=== PATIENT | male | born 1960 | race Caucasian/White ===

== ENCOUNTER 2023-02-23 22:46 | Outpatient (CLI) | payer MEDICAID, SELFPAY | END 2023-02-23 22:47 | disposition home or self-care (01) | LOC: AMB 02-28 12:21 | PROVIDERS: Visit Provider Family Medicine | DX: M54.9 Dorsalgia, unspecified (principal) | CPT/HCPCS: A0425; A0427 ==

== ENCOUNTER 2023-02-23 23:04 | Emergency (ER) | payer MEDICAID, SELFPAY ==
[2023-02-23 23:11] VITALS: BP 198/114; PULSE 109; RESP 18; TEMP 36.7; O2SAT 96; BMI 19.2
--- NOTE | 2023-02-23 23:18 | ED_ITS ---
HPI - General Adult General Chief complaint: Back Injury/Pain Stated complaint: Back Pain Time Seen by Provider: 02/23/23 23:16 History of Present Illness HPI narrative: pt walking home 3d ago, fell and hurt lower back, pain started next day. denies any loc or hitting head. states since that day pain moved up into shoulders and now into neck/back of head. ems did not give any meds. 62-year-old man presenting to the emergency department with complaint of back pain. He describes walking home 3 days ago falling hurting his back somehow. Pain though had escalated the next day. Does have an underlying history of neuropathy. Does not describe shooting pain down his legs or into his arms at this time. He has pain more in the upper middle back that has gone upward. I attempt inquire about past medical but he tends to be brusquely dismissive. Notes that he takes 10 pills in the morning and an unspecified amount the evening. Gabapentin is only noted medication which he takes for neuropathy. Says he does not have any bone injury and would just like something for pain Primary is noted as Jayne Townsend at [facility] [place]. Apparently is moving down to this area Some medical visits are noted on review of care everywhere. Evidently related to falls and alcohol intoxication. Related Data Allergies Allergy/AdvReac Type Severity Reaction Status Date / Time ranitidine AdvReac itch Verified 02/23/23 23:17 Review of Systems Status of ROS: Reports: 6 or more systems reviewed and unremarkable except as noted in History and below Exam Narrative: Exam Narrative: Small stature. A little disheveled. Disagreeable. Breathing easily with what appears to be equal expansion excursion of the chest. Lungs are clear with breath sounds throughout. Appears to be moving all extremities without difficulty. Head does not appear to have evidence of any new trauma. Cranial nerves 2-12 are intact. He is somewhat hunched forward and leaning to the right a little bit in the exam chair. He is disinclined to get into the bed. Thoracic kyphosis. Neck with some right siva cervical but really more trapezial muscle tension. No pain to midline palpation of the neck or back. No pain to palpation about the shoulders or clavicles. Pain is also in the right upper thoracic siva-spinal musculature. I do not see evidence of trauma here. Well- perfused peripherally. Const: Vital Signs, click to edit/add: Vital Signs - 24 hr 02/23/23 23:11 Temperature 98.1 F Pulse Rate [Pulse Oximeter] 109 H Respiratory Rate 18 Blood Pressure [Ri ght Upper Arm] 198/114 H Pulse Oximetry 96 Oxygen Delivery Me thod Room Air Documenting provider has reviewed patient's vital signs: yes Course Vital Signs Vital signs: Initial Vital Signs Temperature 98.1 F 02/23/23 23:11 Temperature Source Temporal Artery Scan 02/23/23 23:11 Pulse Rate 109 H 02/23/23 23:11 Respiratory Rate 18 02/23/23 23:11 Blood Pressure 198/114 H 02/23/23 23:11 Blood Pressure Mean 142 H 02/23/23 23:11 Blood Pressure Position Sitting 02/23/23 23:11 Pulse Oximetry 96 02/23/23 23:11 Oxygen Delivery Method Room Air 02/23/23 23:11 Vital Signs Temperature 98.1 F 02/23/23 23:11 Pulse Rate 109 H 02/23/23 23:11 Respiratory Rate 18 02/23/23 23:11 Blood Pressure 198/114 H 02/23/23 23:11 Pulse Oximetry 96 02/23/23 23:11 Oxygen Delivery Method Room Air 02/23/23 23:11 Temperature 98.1 F 02/23/23 23:48 Pulse Rate 94 02/23/23 23:48 Respiratory Rate 18 02/23/23 23:48 Blood Pressure 174/84 H 02/23/23 23:48 Pulse Oximetry 96 02/23/23 23:48 Oxygen Delivery Method Room Air 02/23/23 23:48 Medical Decision Making MDM Narrative Medical decision making narrative: Seems to have musculoskeletal pain exacerbated by deconditioning in the setting of neuropathy. I do not think there is signify bony injury and regardless he appears disinclined to further investigation. Certainly could be minor rib fracture. Vitals are notable for uncontrolled blood pressure in particular. I offer an injection of Toradol which he accepts. Said he does not do pain medications generally. Given posture might benefit from soft collar which I offer and he accepts. Seems familiar with treatments for pain. He thought that a muscle relaxer might be helpful. I did express some concerns regarding potential sedation. Given ketorolac injection. Was ultimately improved and ambulatory from the emergency department. Discharge Plan Discharge Clinical Impression: Back pain, High blood pressure Patient Disposition: Home, Self-Care Condition: Stable Additional Instructions: Can wear the soft collar for comfort over this next week. See handout on stretches for upper and lower back just to help mobilize things. Cyclobenzaprine as ?muscle relaxer? from [employer]. Temporarily can also take up to 800 mg of ibuprofen per dose or up to 1000 mg of acetaminophen per dose; the latter can be taken longer-term. You can also substitute ibuprofen with naproxen up to 500 mg 2 times daily. If you can not reach your primary care provider and you are establishing cares here anyway, would be a good idea to call to a local clinic to be seen as soon as possible; especially with regard to your blood pressure. Can be seen in [facility] affiliated clinics or [facility] locally. Be sure to show up with your pill bottles so that refills can be done. Follow Up/Referrals: Dipak Louis MD [Staff Physician] - Stand Alone Forms: [employer] Info Instructions
--- NOTE | 2023-02-23 23:22 | ED.NURSE ---
pt refuses to give med list, states we should have it, PCP is at [facility], we do not have that data, pt updated and still did not give med list. pt stated he could not move because of pain but pt did get up and walk around room and get the chair off the wall to sit down in while waiting for MD.
[2023-02-23 23:35] VITALS: TEMP 36.7
[2023-02-23] MEDS: KETOROLAC 60 MG/2 ML inj IM (23:35)
[2023-02-23 23:48] VITALS: BP 174/84; PULSE 94; RESP 18; TEMP 36.7; O2SAT 96
== END 2023-02-23 23:48 | disposition home or self-care (01) ==
PROVIDERS: Emergency Provider Family Medicine
DX: M54.9 Dorsalgia, unspecified (principal); R03.0 Elevated blood-pressure reading, without diagnosis of hypertension
CPT/HCPCS: 96372; 99283; 99284; J1885

== ENCOUNTER 2023-03-12 23:23 | Outpatient (CLI) | payer MEDICAID, SELFPAY | END 2023-03-12 23:24 | disposition home or self-care (01) | PROVIDERS: Visit Provider Student in an Organized Health Care Education/Training Program | DX: R06.09 Other forms of dyspnea (principal) | CPT/HCPCS: A0425; A0427 ==

== ENCOUNTER 2023-03-12 23:45 | Emergency (ER) | payer MEDICAID, SELFPAY ==
[2023-03-12 23:58] VITALS: PULSE 147; O2SAT 60
[2023-03-13] VITALS (42 sets, daily range): BP systolic 121–227; BP diastolic 87–182; PULSE 93–143; RESP 12–40; TEMP 35.8–36.1; O2SAT 65–100
--- NOTE | 2023-03-13 | CRLHL7_ITS ---
For Patients: As a result of the Cures Act, medical imaging exams and procedure reports are released immediately into your electronic medical record. You may view this report before your referring provider. If you have questions, please contact your health care provider. INDICATION: Dyspnea, intubation TECHNIQUE: Chest radiograph 1 view COMPARISON: None FINDINGS: Mediastinum: The mediastinum is normal in appearance. The heart silhouette is normal in size and morphology. The endotracheal tube tip is positioned 2.8 cm from the abiodun. Lung: Diffuse interstitial infiltrates with Jayson B lines are present and consistent with moderate interstitial pulmonary edema. No pneumothorax is identified. Bone and Soft tissue: Remote fractures of the right posterior 5th-8th ribs are noted. IMPRESSION: 1. Diffuse interstitial infiltrates with Jayson B lines are present and consistent with moderate interstitial pulmonary edema. Dictated by Vitaly West MD @ 03/13/2023 12:38:47 AM Dictated by: Vitaly West MD @ 03/13/2023 00:38:52 (Electronically Signed)
[2023-03-13 00:26] LABS: HCO3 VBG 13 mmol/L (21-28); PCO2 VBG 48 mmHG (40-50); PO2 VBG 47.4 mmHG (25-47)
[2023-03-13 00:29] LABS: Basophils Percent Auto 0.4 % (0.0-3.0); Eosinophils Percent Auto 2.2 % (0.0-7.0); Hematocrit 36.4 % (37.0-53.0); Hemoglobin* 11.2 gm/dL (13.5-17.5); Lymphocytes Percent Auto 32.1 % (20-44); Mean Corpuscular HGB Conc 31 gm/dL (32-36); Mean Corpuscular Hemoglobin 32 pg (26-34); Mean Corpuscular Volume 105 fL (80-100); Neutrophils Percent Auto 58.7 % (42.0-72.0); Platelet Count* 390 K/uL (140-440); RDW Coefficient of Variation % 13.9 % (11.5-15.5); Red Blood Count 3.47 m/uL (4.30-5.90); White Blood Count* 18.44 K/uL (4.50-11.00)
[2023-03-13 00:30] LABS: Immature Granulocytes Pct Auto 0.6 %
[2023-03-13 00:32] LABS: Slide Review Reflex No
[2023-03-13 00:34] LABS: Lactate* 4.1 mmol/L (0.5-1.9); pH VBG 7.052 (7.32-7.43)
[2023-03-13 00:40] LABS: Appearance Urine Clear (Clear); Bilirubin Urine Negative (Negative); Blood Urine Trace-intact (Negative); Color Urine Yellow (Yellow); Glucose Urine Trace (Negative); Ketones Urine Negative (Negative); Leukocyte Esterase Urine Negative (Negative); Nitrite Urine Negative (Negative); Protein Urine 3+ (Negative); Urobilinogen Urine 0.2 (0.2-1.0); pH Urine 6.5 (5.0-8.5)
[2023-03-13] MEDS: ETOMIDATE 2 MG/ML inj 18 MG IVP (00:43)
[2023-03-13] MEDS: SUCCINYLCHOLINE 20 MG/ML INJ 180 MG IVP (00:43)
[2023-03-13] MEDS: PROPOFOL 10 MG/ML INJ 100 MG IVP ×2 (00:44→03:01)
--- NOTE | 2023-03-13 00:44 | ED_ITS ---
HPI - General Adult General Chief complaint: Shortness of Breath/Dyspnea <Linda Short MD - Last Filed: 03/13/23 03:00> Stated complaint: difficulty breathing <Linda Short MD - Last Filed: 03/13/23 03:00> Time Seen by Provider: 03/12/23 23:56 <Linda Short MD - Last Filed: 03/13/23 03:00> Source: patient and EMS <Linda Short MD - Last Filed: 03/13/23 03:00> Mode of arrival: EMS <Linda Short MD - Last Filed: 03/13/23 03:00> History of Present Illness HPI narrative: 62-year-old male with known prior significant cardiac and pulmonary history presents to the emergency department for evaluation of dyspnea. Reports that this started 2-3 hours prior to arrival, rapid onset. No fever, no trauma or injury. Friend called EMS. EMS team says that when they arrived, patient came out of his apartment building and met them quickly. O2 sats were noted to be around 70% and he was severely dyspnea. They tried administering a DuoNeb with no significant improvement in symptoms and transported him to the emergency department. When I arrived for my shift, he is already on BiPAP with O2 sats in the 50s to 60s and severely dyspneic and tachycardic. He is able to speak in a couple word sentences and therefore history is somewhat limited. From what I can gather, he reports no recent fever, no pertinent travel. He denies any chest pain, abdominal pain or recent fall. I review records once he is stabilized N/C that he was evaluated earlier in the month for back pain and has recently relocated to our area from the [facility]. He does not yet have a primary care provider and it looks like his previous primary care had been through the [facility] system. He reports he takes: Medications but does not recall what they are. He denies any recent hospitalizations. Past medical history is quite limited but from what I can tell he tells me he has had 2 cardiac arrests. When I ask if he has been intubated for his breathing problems in the past he confirms also yes. He cannot list his medications but he does not endorse any allergies. Denies intoxication reports that he continues to smoke. ROS is notable for the severe respiratory distress but taking accurate ROS is quite limited by his critically ill condition. <Linda Short MD - Last Filed: 03/13/23 03:00> Related Data Allergies/adverse reactions: Allergies Allergy/AdvReac Type Severity Reaction Status Date / Time ranitidine AdvReac itch Verified 02/23/23 23:17 <Linda Short MD - Last Filed: 03/13/23 03:00> PFSH PFSH Social History: Social History Smoking Status: Current every day smoker <Linda Short MD - Last Filed: 03/13/23 03:00> Exam Const: Vital Signs, click to edit/add: Vital Signs - 24 hr 03/12/23 23:58 03/13/23 00:00 03/13/23 00:14 Temperature Pulse Rate 147 H 143 H 130 H Pulse Rate [Femora l] Respiratory Rate Blood Pressure 185/163 H Blood Pressure [Ri ght Upper Arm] Pulse Oximetry 60 L 65 L 84 L Oxygen Delivery Me thod Oxygen Flow Rate Fraction of Inspir ed Oxygen 03/13/23 00:15 03/13/23 00:29 03/13/23 00:30 Temperature Pulse Rate 133 H 111 H 108 H Pulse Rate [Femora l] Respiratory Rate Blood Pressure 132/106 H Blood Pressure [Ri ght Upper Arm] Pulse Oximetry 84 L 97 98 Oxygen Delivery Me thod Oxygen Flow Rate Fraction of Inspir ed Oxygen 03/13/23 00:31 03/13/23 00:36 03/13/23 00:41 Temperature Pulse Rate 106 H 98 93 Pulse Rate [Femora l] Respiratory Rate Blood Pressure 121/98 H 123/93 H 127/93 H Blood Pressure [Ri ght Upper Arm] Pulse Oximetry 98 99 99 Oxygen Delivery Me thod Oxygen Flow Rate Fraction of Inspir ed Oxygen 03/13/23 00:45 03/13/23 00:46 03/13/23 00:51 Temperature Pulse Rate 95 95 98 Pulse Rate [Femora l] Respiratory Rate Blood Pressure 125/92 H 145/111 H Blood Pressure [Ri ght Upper Arm] Pulse Oximetry 99 99 100 Oxygen Delivery Me thod Oxygen Flow Rate Fraction of Inspir ed Oxygen 03/13/23 01:00 03/13/23 01:05 03/13/23 01:05 Temperature 96.5 F L Pulse Rate 121 H 125 H Pulse Rate [Femora l] 131 H Respiratory Rate 40 H Blood Pressure 176/109 H Blood Pressure [Ri ght Upper Arm] 186/101 H Pulse Oximetry 96 94 Oxygen Delivery Me thod Room Air Oxygen Flow Rate Fraction of Inspir ed Oxygen 03/13/23 01:06 03/13/23 01:11 03/13/23 01:15 Temperature Pulse Rate 125 H 127 H 129 H Pulse Rate [Femora l] Respiratory Rate Blood Pressure 227/182 H 186/111 H Blood Pressure [Ri ght Upper Arm] Pulse Oximetry 93 92 92 Oxygen Delivery Me thod Oxygen Flow Rate Fraction of Inspir ed Oxygen 03/13/23 01:16 03/13/23 01:21 03/13/23 01:26 Temperature Pulse Rate 128 H 130 H 132 H Pulse Rate [Femora l] Respiratory Rate Blood Pressure 184/114 H 175/118 H 197/127 H Blood Pressure [Ri ght Upper Arm] Pulse Oximetry 92 94 94 Oxygen Delivery Me thod Oxygen Flow Rate Fraction of Inspir ed Oxygen 03/13/23 01:28 03/13/23 01:30 03/13/23 01:31 Temperature 96.9 F L Pulse Rate 131 H 130 H Pulse Rate [Femora l] Respiratory Rate 12 12 Blood Pressure 184/115 H 185/115 H Blood Pressure [Ri ght Upper Arm] Pulse Oximetry 94 94 Oxygen Delivery Me thod Intubated Intubated Oxygen Flow Rate 80 Fraction of Inspir ed Oxygen 80 03/13/23 01:34 03/13/23 01:36 03/13/23 01:41 Temperature Pulse Rate 128 H 133 H Pulse Rate [Femora l] Respiratory Rate 12 12 Blood Pressure 181/110 H 188/119 H Blood Pressure [Ri ght Upper Arm] Pulse Oximetry 93 95 95 Oxygen Delivery Me thod Intubated Intubated Oxygen Flow Rate 80 80 Fraction of Inspir ed Oxygen 03/13/23 01:46 03/13/23 01:51 03/13/23 01:57 Temperature Pulse Rate 133 H 130 H 131 H Pulse Rate [Femora l] Respiratory Rate 12 12 12 Blood Pressure 196/122 H 180/110 H 183/111 H Blood Pressure [Ri ght Upper Arm] Pulse Oximetry 93 95 95 Oxygen Delivery Me thod Intubated Intubated Intubated Oxygen Flow Rate Fraction of Inspir ed Oxygen 80 80 80 03/13/23 02:01 03/13/23 02:06 03/13/23 02:11 Temperature Pulse Rate 133 H 133 H 136 H Pulse Rate [Femora l] Respiratory Rate 12 12 12 Blood Pressure 187/119 H 191/119 H 189/121 H Blood Pressure [Ri ght Upper Arm] Pulse Oximetry 95 95 95 Oxygen Delivery Me thod Intubated Intubated Intubated Oxygen Flow Rate 80 80 80 Fraction of Inspir ed Oxygen 03/13/23 02:16 03/13/23 02:21 03/13/23 02:26 Temperature Pulse Rate 137 H 129 H 122 H Pulse Rate [Femora l] Respiratory Rate 12 Blood Pressure 200/128 H 149/99 H 130/87 Blood Pressure [Ri ght Upper Arm] Pulse Oximetry 94 95 97 Oxygen Delivery Me thod Intubated Oxygen Flow Rate 80 Fraction of Inspir ed Oxygen 03/13/23 02:27 03/13/23 02:30 03/13/23 02:31 Temperature Pulse Rate 121 H 119 H 118 H Pulse Rate [Femora l] Respiratory Rate 12 12 Blood Pressure 125/87 130/87 Blood Pressure [Ri ght Upper Arm] Pulse Oximetry 97 97 97 Oxygen Delivery Me thod Intubated Intubated Oxygen Flow Rate Fraction of Inspir ed Oxygen 80 80 03/13/23 02:36 03/13/23 02:41 03/13/23 02:45 Temperature Pulse Rate 120 H 126 H 124 H Pulse Rate [Femora l] Respiratory Rate 12 12 12 Blood Pressure 146/95 H 167/109 H 172/105 H Blood Pressure [Ri ght Upper Arm] Pulse Oximetry 96 96 95 Oxygen Delivery Me thod Intubated Intubated Intubated Oxygen Flow Rate 12 Fraction of Inspir ed Oxygen 80 80 03/13/23 02:46 03/13/23 02:47 Temperature Pulse Rate 123 H 122 H Pulse Rate [Femora l] Respiratory Rate 12 Blood Pressure 137/114 H Blood Pressure [Ri ght Upper Arm] Pulse Oximetry 96 96 Oxygen Delivery Me thod Intubated Oxygen Flow Rate Fraction of Inspir ed Oxygen 80 <Linda Short MD - Last Filed: 03/13/23 03:00> Vital Signs, click to edit/add: Vital Signs - 24 hr 03/12/23 23:58 03/13/23 00:00 03/13/23 00:14 Temperature Pulse Rate 147 H 143 H 130 H Pulse Rate [Femora l] Respiratory Rate Blood Pressure 185/163 H Blood Pressure [Ri ght Upper Arm] Pulse Oximetry 60 L 65 L 84 L Oxygen Delivery Me thod Oxygen Flow Rate Fraction of Inspir ed Oxygen 03/13/23 00:15 03/13/23 00:29 03/13/23 00:30 Temperature Pulse Rate 133 H 111 H 108 H Pulse Rate [Femora l] Respiratory Rate Blood Pressure 132/106 H Blood Pressure [Ri ght Upper Arm] Pulse Oximetry 84 L 97 98 Oxygen Delivery Me thod Oxygen Flow Rate Fraction of Inspir ed Oxygen 03/13/23 00:31 03/13/23 00:36 03/13/23 00:41 Temperature Pulse Rate 106 H 98 93 Pulse Rate [Femora l] Respiratory Rate Blood Pressure 121/98 H 123/93 H 127/93 H Blood Pressure [Ri ght Upper Arm] Pulse Oximetry 98 99 99 Oxygen Delivery Me thod Oxygen Flow Rate Fraction of Inspir ed Oxygen 03/13/23 00:45 03/13/23 00:46 03/13/23 00:51 Temperature Pulse Rate 95 95 98 Pulse Rate [Femora l] Respiratory Rate Blood Pressure 125/92 H 145/111 H Blood Pressure [Ri ght Upper Arm] Pulse Oximetry 99 99 100 Oxygen Delivery Me thod Oxygen Flow Rate Fraction of Inspir ed Oxygen 03/13/23 01:00 03/13/23 01:05 03/13/23 01:05 Temperature 96.5 F L Pulse Rate 121 H 125 H Pulse Rate [Femora l] 131 H Respiratory Rate 40 H Blood Pressure 176/109 H Blood Pressure [Ri ght Upper Arm] 186/101 H Pulse Oximetry 96 94 Oxygen Delivery Me thod Room Air Oxygen Flow Rate Fraction of Inspir ed Oxygen 03/13/23 01:06 03/13/23 01:11 03/13/23 01:15 Temperature Pulse Rate 125 H 127 H 129 H Pulse Rate [Femora l] Respiratory Rate Blood Pressure 227/182 H 186/111 H Blood Pressure [Ri ght Upper Arm] Pulse Oximetry 93 92 92 Oxygen Delivery Me thod Oxygen Flow Rate Fraction of Inspir ed Oxygen 03/13/23 01:16 03/13/23 01:21 03/13/23 01:26 Temperature Pulse Rate 128 H 130 H 132 H Pulse Rate [Femora l] Respiratory Rate Blood Pressure 184/114 H 175/118 H 197/127 H Blood Pressure [Ri ght Upper Arm] Pulse Oximetry 92 94 94 Oxygen Delivery Me thod Oxygen Flow Rate Fraction of Inspir ed Oxygen 03/13/23 01:28 03/13/23 01:30 03/13/23 01:31 Temperature 96.9 F L Pulse Rate 131 H 130 H Pulse Rate [Femora l] Respiratory Rate 12 12 Blood Pressure 184/115 H 185/115 H Blood Pressure [Ri ght Upper Arm] Pulse Oximetry 94 94 Oxygen Delivery Me thod Intubated Intubated Oxygen Flow Rate 80 Fraction of Inspir ed Oxygen 80 03/13/23 01:34 03/13/23 01:36 03/13/23 01:41 Temperature Pulse Rate 128 H 133 H Pulse Rate [Femora l] Respiratory Rate 12 12 Blood Pressure 181/110 H 188/119 H Blood Pressure [Ri ght Upper Arm] Pulse Oximetry 93 95 95 Oxygen Delivery Me thod Intubated Intubated Oxygen Flow Rate 80 80 Fraction of Inspir ed Oxygen 03/13/23 01:46 03/13/23 01:51 03/13/23 01:57 Temperature Pulse Rate 133 H 130 H 131 H Pulse Rate [Femora l] Respiratory Rate 12 12 12 Blood Pressure 196/122 H 180/110 H 183/111 H Blood Pressure [Ri ght Upper Arm] Pulse Oximetry 93 95 95 Oxygen Delivery Me thod Intubated Intubated Intubated Oxygen Flow Rate Fraction of Inspir ed Oxygen 80 80 80 03/13/23 02:01 03/13/23 02:06 03/13/23 02:11 Temperature Pulse Rate 133 H 133 H 136 H Pulse Rate [Femora l] Respiratory Rate 12 12 12 Blood Pressure 187/119 H 191/119 H 189/121 H Blood Pressure [Ri ght Upper Arm] Pulse Oximetry 95 95 95 Oxygen Delivery Me thod Intubated Intubated Intubated Oxygen Flow Rate 80 80 80 Fraction of Inspir ed Oxygen 03/13/23 02:16 03/13/23 02:21 03/13/23 02:26 Temperature Pulse Rate 137 H 129 H 122 H Pulse Rate [Femora l] Respiratory Rate 12 Blood Pressure 200/128 H 149/99 H 130/87 Blood Pressure [Ri ght Upper Arm] Pulse Oximetry 94 95 97 Oxygen Delivery Me thod Intubated Oxygen Flow Rate 80 Fraction of Inspir ed Oxygen 03/13/23 02:27 03/13/23 02:30 03/13/23 02:31 Temperature Pulse Rate 121 H 119 H 118 H Pulse Rate [Femora l] Respiratory Rate 12 12 Blood Pressure 125/87 130/87 Blood Pressure [Ri ght Upper Arm] Pulse Oximetry 97 97 97 Oxygen Delivery Me thod Intubated Intubated Oxygen Flow Rate Fraction of Inspir ed Oxygen 80 80 03/13/23 02:36 03/13/23 02:41 03/13/23 02:45 Temperature Pulse Rate 120 H 126 H 124 H Pulse Rate [Femora l] Respiratory Rate 12 12 12 Blood Pressure 146/95 H 167/109 H 172/105 H Blood Pressure [Ri ght Upper Arm] Pulse Oximetry 96 96 95 Oxygen Delivery Me thod Intubated Intubated Intubated Oxygen Flow Rate 12 Fraction of Inspir ed Oxygen 80 80 03/13/23 02:46 03/13/23 02:47 Temperature Pulse Rate 123 H 122 H Pulse Rate [Femora l] Respiratory Rate 12 Blood Pressure 137/114 H Blood Pressure [Ri ght Upper Arm] Pulse Oximetry 96 96 Oxygen Delivery Me thod Intubated Oxygen Flow Rate Fraction of Inspir ed Oxygen 80 <Bin Chu DO - Last Filed: 03/13/23 16:13> Documenting provider has reviewed patient's vital signs: yes <Linda Short MD - Last Filed: 03/13/23 03:00> Other: Cachectic appearing man with severe respiratory distress limiting clinical interview. Mildly disheveled but polite, cooperative. <Linda Short MD - Last Filed: 03/13/23 03:00> HENMT: Common normals: normocephalic and head/scalp atraumatic <Linda Short MD - Last Filed: 03/13/23 03:00> Head and scalp: normocephalic and atraumatic <Linda Short MD - Last Filed: 03/13/23 03:00> Face and sinus: normal facial exam <MD Charity Iniguez Last Filed: 03/13/23 03:00> Mouth: oral and palatal mucosa normal <MD Charity Iniguez Last Filed: 03/13/23 03:00> Throat: posterior oropharynx normal <MD Charity Iniguez Last Filed: 03/13/23 03:00> Eye: Common normals: conjunctivae normal <MD Charity Iniguez Last F iled: 03/13/23 03:00> General eye: normal appearance of both eyes <MD Charity Iniguez Last Filed: 03/13/23 03:00> Conjunctiva: conjunctiva(e) normal <MD Charity Iniguez Last Filed: 03/13/23 03:00> Neck & C-Spine: Common normals: full ROM and no lymphadenopathy <Linda Short MD - Last Filed: 03/13/23 03:00> General: normal visual inspection <MD Charity Iniguez Last Filed: 03/13/23 03:00> Chest: Other: Emphysema parents to chest wall, significant use of accessory muscles. <MD Charity Iniguez Last Filed: 03/13/23 03:00> Resp: Other: Increased respiratory effort. Prolongation of expiration, expiratory wheezing no obvious crackles. Breath sounds are present bilaterally <MD Charity Iniguez Last Filed: 03/13/23 03:00> Cardio: Common normals: regular rate, regular rhythm, S1 normal heart sound and S2 normal heart sound <MD Charity Iniguez Last Filed: 03/13/23 03:00> Rate: regular rate <MD Charity Iniguez Last Filed: 03/13/23 03:00> Rhythm: regular rhythm <MD Charity Iniguez Last Filed: 03/13/23 03:00> Heart sounds: S1 normal and S2 normal <MD Charity Iniguez Last Filed: 03/13/23 03:00> Other: Initial exam is tachycardic to about 130, no obvious murmur, sounds regular. <Linda Short MD - Last Filed: 03/13/23 03:00> GI: Common normals: Normal to inspection, nondistended, normoactive bowel sounds present, soft to palpation, non-tender, no hepatosplenomegaly and no masses <Linda Short MD - Last Filed: 03/13/23 03:00> Palpation: soft and no hepatosplenomegaly <Linda Short MD - Last Filed: 03/13/23 03:00> Extremity: Other: 1+ edema to ankle, not lower tibia. <Linda Short MD - Last Filed: 03/13/23 03:00> Neuro: Other: Neuro exam limited by clinical condition but does move all extremities easily and symmetrically and speech is normal though labored. <Linda Short MD - Last Filed: 03/13/23 03:00> Psych: Mood and affect: euthymic mood <Linda Short MD - Last Filed: 03/13/23 03:00> Skin: Common normals: no rashes or lesions noted <Linda Short MD - Last Filed: 03/13/23 03:00> General skin exam: no rashes or lesions noted <Linda Short MD - Last Filed: 03/13/23 03:00> Course Course ED Course: Upon my arrival, patient on BiPAP, team reporting that he had been this way for about 10 minutes, they relayed the EMS report. Previous physician managing care, announced that they were moving towards intubation and had begun setting up for this. 2nd IV line is currently being placed, labs being drawn. Previous physician and oz he will manage intubation, I agree. Please see his supplemental note. I began calling for transport at 12:02 a.m. and because of multiple declined facilities I remained in place doing so until 1235. I did sit immediately outside the bedside and was listening in on helping manage care during that time. Patient remained hypertensive, tachycardic. Intubation successful and I do view the portable chest x-ray while I am on hold. This does show good tube placement, emphysema changes but no obvious pneumothorax or large pleural effusion to explain his respiratory distress. Borderline troponins, severe acidosis, leukocytosis noted. Patient received 1 L of normal saline, then fluids saline lock. He initially received etomidate and succinylcholine for intubation, propofol drip then started. Because of the elevated white blood cell count, after steroids for the COPD, blood cultures are drawn. He is given Zosyn and vancomycin for suspected pneumonia. Ultimately, I received acceptance at 2:[address] Elmore at the [place] [facility]. Underlying concern for possible pulmonary embolism. I do not think delaying his transfer further to investigate this is in his best interest and do recommend that he be transferred immediately. He will be transferred by a air ambulance to [facility]. Currently only on a propofol drip after 2nd bolus of vecuronium. IV fluids have been saline locked due to concern for pulmonary edema. Antibiotics are still infusing. Viral studies are negative. D-dimer has been added to our panel and we will follow up with these results to the [facility] team. <Linda Short MD - Last Filed: 03/13/23 03:00> Reevaluation(s) Time of Reevaluation #1: 02:59 <Linda Short MD - Last Filed: 03/13/23 03:00> Reevaluation #1: Patient responded well to ketamine after some signs of increased blood pressure and tachycardia with arousal. Additional propofol bolus of 100 mg given as well. EMS team arrived. I did send them with a 50 mg dose of ketamine to use if he does show more Signs arousal again, propofol bolus will continue. Patient to simply stable but critically ill at the time of discharge. Air ambulance not traveling due to weather, sent via [facility] ground. <Linda Short MD - Last Filed: 03/13/23 03:00> Vital Signs Vital signs: Initial Vital Signs Pulse Rate 147 H 03/12/23 23:58 Pulse Oximetry 60 L 03/12/23 23:58 Vital Signs Pulse Rate 147 H 03/12/23 23:58 Pulse Oximetry 60 L 03/12/23 23:58 Temperature 96.9 F L 03/13/23 01:28 Pulse Rate 122 H 03/13/23 02:47 Respiratory Rate 12 03/13/23 02:47 Blood Pressure 137/114 H 03/13/23 02:47 Pulse Oximetry 96 03/13/23 02:47 Oxygen Delivery Method Intubated 03/13/23 02:47 Oxygen Flow Rate 12 03/13/23 02:45 Fraction of Inspired Oxygen 80 03/13/23 02:47 <Linda Short MD - Last Filed: 03/13/23 03:00> Initial Vital Signs Pulse Rate 147 H 03/12/23 23:58 Pulse Oximetry 60 L 03/12/23 23:58 Vital Signs Pulse Rate 147 H 03/12/23 23:58 Pulse Oximetry 60 L 03/12/23 23:58 Temperature 96.9 F L 03/13/23 01:28 Pulse Rate 122 H 03/13/23 02:47 Respiratory Rate 12 03/13/23 02:47 Blood Pressure 137/114 H 03/13/23 02:47 Pulse Oximetry 96 03/13/23 02:47 Oxygen Delivery Method Intubated 03/13/23 02:47 Oxygen Flow Rate 12 03/13/23 02:45 Fraction of Inspired Oxygen 80 03/13/23 02:47 <Bin Chu DO - Last Filed: 03/13/23 16:13> Medical Decision Making MDM Narrative Medical decision making narrative: Upon my arrival, patient is being attended by previous shift physician, on BiPAP with still severe respiratory distress and poor O2 sats with tachycardia. Decision have just been made to move towards intubation. I witness verbal consent to this. Please see supplemental note from intubating physician. We place 2 IV lines, draw labs, obtain EKG, cardiac monitors, ultimately moved towards intubation. Etomidate, succinylcholine used for intubation, drips of propofol an additional bolus dose of etomidate given per my orders. 1 L of normal saline bolused with significant improvement in blood pressures. After intubation, within 15 minutes, heart rate had improved from the 140s down to around 100 and oxygen levels quickly climbing to the mid to high 90s. I began calling for transport at 12:02 a.m.. I remained on the phone, observing from the corner of the ED room until 00 35. No beds available at [facility]. Call backs from [facility] and the [facility] system. Elevated lactate, significant leukocytosis, suspicion for sepsis. Patient started on vancomycin and Zosyn, given 125 of Solu-Medrol, additional DuoNeb. I did bolus another dose of etomidate with improved paralysis. Continues on propofol drip which I increased from 50-70 mics. Pressures tolerated this well. At the time of this dictation, awaiting transport. Viral studies are pending. <Linda Short MD - Last Filed: 03/13/23 03:00> Lab Data Lab results reviewed: Yes I reviewed the patient's lab results <Linda Short MD - Last Filed: 03/13/23 03:00> Lab results narrative: Marked leukocytosis, acidosis, borderline troponins most likely strain from hypoxia. Negative viral studies. <Linda Short MD - Last Filed: 03/13/23 03:00> Labs: Lab Results 03/13/23 03/13/23 03/13/23 Range/Units 00:00 00:15 00:18 WBC 18.44 H (4.50-11.00) K/uL RBC 3.47 L (4.30-5.90) m/uL Hgb 11.2 L (13.5-17.5) gm/dL Hct 36.4 L (37.0-53.0) % MCV 105 H (80-100) fL MCH 32 (26-34) pg MCHC 31 L (32-36) gm/dL RDW Coeff of Martir 13.9 (11.5-15.5) % Plt Count 390 (140-440) K/uL Neut % (Auto) 58.7 (42.0-72.0) % Lymph % (Auto) 32.1 (20-44) % Sanborn % (Auto) 6.0 (0.0-11.0) % Eos % (Auto) 2.2 (0.0-7.0) % Baso % (Auto) 0.4 (0.0-3.0) % Neut # (Auto) 10.80 H (1.7-7.0) K/uL Lymph # (Auto) 5.90 H (0.90-2.90) K/uL Sanborn # (Auto) 1.10 H (0.00-0.90) K/UL Eos # (Auto) 0.40 (0.00-0.50) K/uL Baso # (Auto) 0.10 (0.00-0.30) K/uL Abs Immat Gran (auto) 0.10 (0.00-0.30) K/uL Imm/Tot Granulo (auto) 0.6 % D-Dimer Quant (PE/DVT) 2.70 H (0.00-0.50) ug/ml VBG pH 7.052 L* (7.32-7.43) VBG pCO2 48 (40-50) mmHG VBG pO2 47.4 H (25-47) mmHG VBG HCO3 13 L (21-28) mmol/L Sodium 138 (135-149) mmol/L Potassium 4.7 (3.6-5.1) mmol/L Chloride 109 (96-114) mmol/L Carbon Dioxide 11 L (20-32) mmol/L Anion Gap 18 H (7-15) mEq/L BUN 36 H (7-30) mg/dL Creatinine 3.4 H (0.5-1.5) mg/dL Estimated GFR 20 ml/min Glucose 235 H (60-115) mg/dL Lactate 4.1 H* (0.5-1.9) mmol/L Calcium 9.2 (8.4-10.6) mg/dL Total Bilirubin 0.4 (0.1-1.5) mg/dL AST 45 H (12-35) U/L ALT 13 (4-50) U/L Alkaline Phosphatase 162 H (40-150) U/L Troponin I 0.07 H* (0.01-0.04) ng/mL NT-Pro-B Natriuret Pep 21640 pg/mL Total Protein 7.8 (6.0-8.3) g/dL Albumin 4.2 (3.3-5.0) g/dL Urine Color Yellow (Yellow) Urine Appearance Clear (Clear) Urine pH 6.5 (5.0-8.5) Ur Specific [place] 1.020 (1.000-1.030) Urine Protein 3+ A (Negative) Urine Glucose (UA) Trace A (Negative) Urine Ketones Negative (Negative) Urine Blood Trace-intact A (Negative) Urine Nitrite Negative (Negative) Urine Bilirubin Negative (Negative) Urine Urobilinogen 0.2 (0.2-1.0) Ur Leukocyte Esterase Negative (Negative) Urine RBC 2-5 A (0-2) Urine WBC 0-2 (0-5) Ur Squamous Epith Cells Few (None-Few) Urine Bacteria Few A (None) Urine Opiates Screen Negative (Negative) Ur Oxycodone Screen Negative (Negative) Urine Methadone Screen Negative (Negative) Ur Propoxyphene Screen Negative (Negative) Ur Barbiturates Screen Negative (Negative) U Tricyclic Antidepress Negative (Negative) Ur Phencyclidine Scrn Negative (Negative) Ur Amphetamines Screen Negative (Negative) U Methamphetamines Scrn Negative (Negative) U Benzodiazepines Scrn Negative (Negative) Urine Cocaine Screen Negative (Negative) U Marijuana (THC) Screen POSITIVE A (Negative) Ur Drug Screen Comment See Note Ethyl Alcohol < 0.01 L (0.01-0.03) % SARS-CoV-2 (PCR) (Negative) Influenza Type A (PCR) (Negative) Influenza Type B (PCR) (Negative) RSV (PCR) (Negative) Lab Acknowledgement POC Troponin I 0.06 H (0.01-0.04) ng/ml 03/13/23 03/13/23 Range/Units 00:42 01:59 WBC (4.50-11.00) K/uL RBC (4.30-5.90) m/uL Hgb (13.5-17.5) gm/dL Hct (37.0-53.0) % MCV (80-100) fL MCH (26-34) pg MCHC (32-36) gm/dL RDW Coeff of Martir (11.5-15.5) % Plt Count (140-440) K/uL Neut % (Auto) (42.0-72.0) % Lymph % (Auto) (20-44) % Sanborn % (Auto) (0.0-11.0) % Eos % (Auto) (0.0-7.0) % Baso % (Auto) (0.0-3.0) % Neut # (Auto) (1.7-7.0) K/uL Lymph # (Auto) (0.90-2.90) K/uL Sanborn # (Auto) (0.00-0.90) K/UL Eos # (Auto) (0.00-0.50) K/uL Baso # (Auto) (0.00-0.30) K/uL Abs Immat Gran (auto) (0.00-0.30) K/uL Imm/Tot Granulo (auto) % D-Dimer Quant (PE/DVT) (0.00-0.50) ug/ml VBG pH (7.32-7.43) VBG pCO2 (40-50) mmHG VBG pO2 (25-47) mmHG VBG HCO3 (21-28) mmol/L Sodium (135-149) mmol/L Potassium (3.6-5.1) mmol/L Chloride (96-114) mmol/L Carbon Dioxide (20-32) mmol/L Anion Gap (7-15) mEq/L BUN (7-30) mg/dL Creatinine (0.5-1.5) mg/dL Estimated GFR ml/min Glucose (60-115) mg/dL Lactate (0.5-1.9) mmol/L Calcium (8.4-10.6) mg/dL Total Bilirubin (0.1-1.5) mg/dL AST (12-35) U/L ALT (4-50) U/L Alkaline Phosphatase (40-150) U/L Troponin I (0.01-0.04) ng/mL NT-Pro-B Natriuret Pep pg/mL Total Protein (6.0-8.3) g/dL Albumin (3.3-5.0) g/dL Urine Color (Yellow) Urine Appearance (Clear) Urine pH (5.0-8.5) Ur Specific [place] (1.000-1.030) Urine Protein (Negative) Urine Glucose (UA) (Negative) Urine Ketones (Negative) Urine Blood (Negative) Urine Nitrite (Negative) Urine Bilirubin (Negative) Urine Urobilinogen (0.2-1.0) Ur Leukocyte Esterase (Negative) Urine RBC (0-2) Urine WBC (0-5) Ur Squamous Epith Cells (None-Few) Urine Bacteria (None) Urine Opiates Screen (Negative) Ur Oxycodone Screen (Negative) Urine Methadone Screen (Negative) Ur Propoxyphene Screen (Negative) Ur Barbiturates Screen (Negative) U Tricyclic Antidepress (Negative) Ur Phencyclidine Scrn (Negative) Ur Amphetamines Screen (Negative) U Methamphetamines Scrn (Negative) U Benzodiazepines Scrn (Negative) Urine Cocaine Screen (Negative) U Marijuana (THC) Screen (Negative) Ur Drug Screen Comment Ethyl Alcohol (0.01-0.03) % SARS-CoV-2 (PCR) Negative SARS-CoV-2 (Negative) Influenza Type A (PCR) Negative PCR FLU A (Negative) Influenza Type B (PCR) Negative PCR FLU B (Negative) RSV (PCR) Negative PCR RSV (Negative) Lab Acknowledgement Test Added POC Troponin I (0.01-0.04) ng/ml <Linda Short MD - Last Filed: 03/13/23 03:00> Lab Results 03/13/23 03/13/23 03/13/23 Range/Units 00:00 00:15 00:18 WBC 18.44 H (4.50-11.00) K/uL RBC 3.47 L (4.30-5.90) m/uL Hgb 11.2 L (13.5-17.5) gm/dL Hct 36.4 L (37.0-53.0) % MCV 105 H (80-100) fL MCH 32 (26-34) pg MCHC 31 L (32-36) gm/dL RDW Coeff of Martir 13.9 (11.5-15.5) % Plt Count 390 (140-440) K/uL Neut % (Auto) 58.7 (42.0-72.0) % Lymph % (Auto) 32.1 (20-44) % [place] % (Auto) 6.0 (0.0-11.0) % Eos % (Auto) 2.2 (0.0-7.0) % Baso % (Auto) 0.4 (0.0-3.0) % Neut # (Auto) 10.80 H (1.7-7.0) K/uL Lymph # (Auto) 5.90 H (0.90-2.90) K/uL [place] # (Auto) 1.10 H (0.00-0.90) K/UL Eos # (Auto) 0.40 (0.00-0.50) K/uL Baso # (Auto) 0.10 (0.00-0.30) K/uL Abs Immat Gran (auto) 0.10 (0.00-0.30) K/uL Imm/Tot Granulo (auto) 0.6 % D-Dimer Quant (PE/DVT) 2.70 H (0.00-0.50) ug/ml VBG pH 7.052 L* (7.32-7.43) VBG pCO2 48 (40-50) mmHG VBG pO2 47.4 H (25-47) mmHG VBG HCO3 13 L (21-28) mmol/L Sodium 138 (135-149) mmol/L Potassium 4.7 (3.6-5.1) mmol/L Chloride 109 (96-114) mmol/L Carbon Dioxide 11 L (20-32) mmol/L Anion Gap 18 H (7-15) mEq/L BUN 36 H (7-30) mg/dL Creatinine 3.4 H (0.5-1.5) mg/dL Estimated GFR 20 ml/min Glucose 235 H (60-115) mg/dL Lactate 4.1 H* (0.5-1.9) mmol/L Calcium 9.2 (8.4-10.6) mg/dL Total Bilirubin 0.4 (0.1-1.5) mg/dL AST 45 H (12-35) U/L ALT 13 (4-50) U/L Alkaline Phosphatase 162 H (40-150) U/L Troponin I 0.07 H* (0.01-0.04) ng/mL NT-Pro-B Natriuret Pep 47451 pg/mL Total Protein 7.8 (6.0-8.3) g/dL Albumin 4.2 (3.3-5.0) g/dL Urine Color Yellow (Yellow) Urine Appearance Clear (Clear) Urine pH 6.5 (5.0-8.5) Ur Specific [place] 1.020 (1.000-1.030) Urine Protein 3+ A (Negative) Urine Glucose (UA) Trace A (Negative) Urine Ketones Negative (Negative) Urine Blood Trace-intact A (Negative) Urine Nitrite Negative (Negative) Urine Bilirubin Negative (Negative) Urine Urobilinogen 0.2 (0.2-1.0) Ur Leukocyte Esterase Negative (Negative) Urine RBC 2-5 A (0-2) Urine WBC 0-2 (0-5) Ur Squamous Epith Cells Few (None-Few) Urine Bacteria Few A (None) Urine Opiates Screen Negative (Negative) Ur Oxycodone Screen Negative (Negative) Urine Methadone Screen Negative (Negative) Ur Propoxyphene Screen Negative (Negative) Ur Barbiturates Screen Negative (Negative) U Tricyclic Antidepress Negative (Negative) Ur Phencyclidine Scrn Negative (Negative) Ur Amphetamines Screen Negative (Negative) U Methamphetamines Scrn Negative (Negative) U Benzodiazepines Scrn Negative (Negative) Urine Cocaine Screen Negative (Negative) U Marijuana (THC) Screen POSITIVE A (Negative) Ur Drug Screen Comment See Note Ethyl Alcohol < 0.01 L (0.01-0.03) % SARS-CoV-2 (PCR) (Negative) Influenza Type A (PCR) (Negative) Influenza Type B (PCR) (Negative) RSV (PCR) (Negative) Lab Acknowledgement POC Troponin I 0.06 H (0.01-0.04) ng/ml 03/13/23 03/13/23 Range/Units 00:42 01:59 WBC (4.50-11.00) K/uL RBC (4.30-5.90) m/uL Hgb (13.5-17.5) gm/dL Hct (37.0-53.0) % MCV (80-100) fL MCH (26-34) pg MCHC (32-36) gm/dL RDW Coeff of Martir (11.5-15.5) % Plt Count (140-440) K/uL Neut % (Auto) (42.0-72.0) % Lymph % (Auto) (20-44) % [place] % (Auto) (0.0-11.0) % Eos % (Auto) (0.0-7.0) % Baso % (Auto) (0.0-3.0) % Neut # (Auto) (1.7-7.0) K/uL Lymph # (Auto) (0.90-2.90) K/uL [place] # (Auto) (0.00-0.90) K/UL Eos # (Auto) (0.00-0.50) K/uL Baso # (Auto) (0.00-0.30) K/uL Abs Immat Gran (auto) (0.00-0.30) K/uL Imm/Tot Granulo (auto) % D-Dimer Quant (PE/DVT) (0.00-0.50) ug/ml VBG pH (7.32-7.43) VBG pCO2 (40-50) mmHG VBG pO2 (25-47) mmHG VBG HCO3 (21-28) mmol/L Sodium (135-149) mmol/L Potassium (3.6-5.1) mmol/L Chloride (96-114) mmol/L Carbon Dioxide (20-32) mmol/L Anion Gap (7-15) mEq/L BUN (7-30) mg/dL Creatinine (0.5-1.5) mg/dL Estimated GFR ml/min Glucose (60-115) mg/dL Lactate (0.5-1.9) mmol/L Calcium (8.4-10.6) mg/dL Total Bilirubin (0.1-1.5) mg/dL AST (12-35) U/L ALT (4-50) U/L Alkaline Phosphatase (40-150) U/L Troponin I (0.01-0.04) ng/mL NT-Pro-B Natriuret Pep pg/mL Total Protein (6.0-8.3) g/dL Albumin (3.3-5.0) g/dL Urine Color (Yellow) Urine Appearance (Clear) Urine pH (5.0-8.5) Ur Specific [place] (1.000-1.030) Urine Protein (Negative) Urine Glucose (UA) (Negative) Urine Ketones (Negative) Urine Blood (Negative) Urine Nitrite (Negative) Urine Bilirubin (Negative) Urine Urobilinogen (0.2-1.0) Ur Leukocyte Esterase (Negative) Urine RBC (0-2) Urine WBC (0-5) Ur Squamous Epith Cells (None-Few) Urine Bacteria (None) Urine Opiates Screen (Negative) Ur Oxycodone Screen (Negative) Urine Methadone Screen (Negative) Ur Propoxyphene Screen (Negative) Ur Barbiturates Screen (Negative) U Tricyclic Antidepress (Negative) Ur Phencyclidine Scrn (Negative) Ur Amphetamines Screen (Negative) U Methamphetamines Scrn (Negative) U Benzodiazepines Scrn (Negative) Urine Cocaine Screen (Negative) U Marijuana (THC) Screen (Negative) Ur Drug Screen Comment Ethyl Alcohol (0.01-0.03) % SARS-CoV-2 (PCR) Negative SARS-CoV-2 (Negative) Influenza Type A (PCR) Negative PCR FLU A (Negative) Influenza Type B (PCR) Negative PCR FLU B (Negative) RSV (PCR) Negative PCR RSV (Negative) Lab Acknowledgement Test Added POC Troponin I (0.01-0.04) ng/ml <Bin Chu DO - Last Filed: 03/13/23 16:13> ECG Data Attestation: I personally reviewed and interpreted this ECG as follows: <Linda Short MD - Last Filed: 03/13/23 03:00> Prior ECG tracings: not available for review <Linda Short MD - Last Filed: 03/13/23 03:00> Interpretation: normal sinus rhythm, rate 97 (0040), normal axis, non-specific diffuse ST minimal changes (less than 1mm), no obvious ischemia <Linda Short MD - Last Filed: 03/13/23 03:00> Critical Care Time Critical Care Time Critical Care Time: Yes Attestation: The patient required my highest level preparedness to intervene emergently and I personally spent this critical care time directly and personally managing the patient. This critical care time included: Obtaining a history; Examining the patient; Pulse oximetry; Ordering and reviewing of studies; Arranging urgent treatment with development of a management plan; Evaluation of patients response to treatment; Frequent reassessment discussions with other providers. This critical care time was performed to assess and manage the high probability of imminent life-threatening deterioration that could result in multiorgan failure. It was exclusive of separate billable procedures and treating other patients and teaching time. <Linda Short MD - Last Filed: 03/13/23 03:00> Total Critical Care Time in Minutes: 68 <Linda Short MD - Last Filed: 03/13/23 03:00> Discharge Plan Discharge Clinical Impression: Acute hypoxic respiratory failure <Linda Short MD - Last Filed: 03/13/23 03:00> Patient Disposition: [facility] <Linda Short MD - Last Filed: 03/13/23 03:00> Discharge Location: [facility] (formerly [facility] <Linda Short MD - Last Filed: 03/13/23 03:00> Stand Alone Forms: MyHealth Info Instructions <Linda Short MD - Last Filed: 03/13/23 03:00> Procedures Intubation Pre procedure diagnosis: Respiratory failure <Bin P [place], DO - Last Filed: 03/13/23 16:13> Post procedure diagnosis: Respiratory failure <Bin P Vlad, DO - Last Filed: 03/13/23 16:13> Written consent by: patient <Bin P Vlad, DO - Last Filed: 03/13/23 16:13> Verification/time out: correct patient <Bin P [place], DO - Last Filed: 03/13/23 16:13> Name of person performing procedure: Bin P Vlad <Bin P [place], DO - Last Filed: 03/13/23 16:13> Sedative: Etomidate <Bin P [place], DO - Last Filed: 03/13/23 16:13> Mg Given: 18 <Bin P Vlad, DO - Last Filed: 03/13/23 16:13> paralytic: Succinylcholine <Bin P Vlad, DO - Last Filed: 03/13/23 16:13> Mg Given: 180 <Bin P Vlad, DO - Last Filed: 03/13/23 16:13> Laryngoscope: other (Video assisted) <Bin P Vlad, DO - Last Filed: 03/13/23 16:13> ET Tube Size: 7.5 <Bin P [place], DO - Last Filed: 03/13/23 16:13> ET Tube Uncuffed: No <Bin P Vlad, DO - Last Filed: 03/13/23 16:13> Tube Secured Depth (cm): 23 <Bin P [place], DO - Last Filed: 03/13/23 16:13> Tube Secured Location: teeth <Bin P [place], DO - Last Filed: 03/13/23 16:13> Tube Placement Confirmation: visualized tube passing through cords, equal breath sounds bilaterally and no breath sounds over epigastrium <Bin P [place], DO - Last Filed: 03/13/23 16:13> Estimated blood loss (if any): none <Bin P Vlad, DO - Last Filed: 03/13/23 16:13> Intubation Complications: none <Bin Chu, - Last Filed: 03/13/23 16:13> Patient Tolerated Procedure: well <Bin Chu, - Last Filed: 03/13/23 16:13>
[2023-03-13] MEDS: IPRAT-ALBUT 0.5-2.5 MG/3 ML NEB 1 NEB IH (00:45)
[2023-03-13] MEDS: 0.9 % SODIUM CHLORIDE 1000 ml 1,000 ML IV (00:45)
[2023-03-13] MEDS: METHYLPREDNISOLONE SOD SUCC 62.5 MG/ML (125) 125 MG IVP (00:46)
[2023-03-13 00:50] LABS: Amphetamine Screen Urine Negative (Negative); Barbiturate Screen Urine Negative (Negative); Benzodiazepines Screen Urine Negative (Negative); Cannabinoid Screen Urine POSITIVE (Negative); Cocaine Screen Urine Negative (Negative); Methadone Screen Urine Negative (Negative); Methamphetamines Screen Urine Negative (Negative); Opiate Screen Urine Negative (Negative); Oxycodone Screen Urine Negative (Negative); Phencyclidine Screen Urine Negative (Negative); Tricyclic Antidepressant Urine Negative (Negative)
[2023-03-13 00:51] LABS: Albumin* 4.2 g/dL (3.3-5.0); Chloride* 109 mmol/L (96-114)
[2023-03-13 00:52] LABS: Potassium* 4.7 mmol/L (3.6-5.1); Sodium* 138 mmol/L (135-149)
[2023-03-13 00:54] LABS: Anion Gap 18 mEq/L (7-15); Aspartate Amino Transferase* 45 U/L (12-35); Bilirubin Total* 0.4 mg/dL (0.1-1.5); Carbon Dioxide* 11 mmol/L (20-32); Creatinine* 3.4 mg/dL (0.5-1.5); Estimated Glomerular Filt Rate 20 ml/min; Total Protein* 7.8 g/dL (6.0-8.3)
[2023-03-13 00:55] LABS: Alanine Aminotransferase* 13 U/L (4-50); Alkaline Phosphatase* 162 U/L (40-150); Blood Urea Nitrogen* 36 mg/dL (7-30); Calcium* 9.2 mg/dL (8.4-10.6); Glucose* 235 mg/dL (60-115)
[2023-03-13 00:56] LABS: Bacteria Urine Few; Squamous Epithelial Cell Urine Few (None-Few); WBC Urine 0-2 (0-5)
[2023-03-13] MEDS: PROPOFOL 10 MG/ML INJ 50 MG IVP (01:00)
[2023-03-13] MEDS: VECURONIUM 1 MG/ML INJ 6 MG IVP (01:00)
[2023-03-13 01:01] LABS: Ethanol* < 0.01 % (0.01-0.03)
[2023-03-13] MEDS: 0.9 % SODIUM CHLORIDE 1000 ml 1,000 ML 150 ML IV (01:01)
[2023-03-13] MEDS: PIPERACILLIN/TAZOBACTAM 3.375 GM in 0.9 % SODIUM CHLORIDE Mini-bag 100 ML IVPB (01:16)
[2023-03-13 01:18] LABS: NT Pro B Type NatriureticPept* 22700 pg/mL; Troponin I* 0.07 ng/mL (0.01-0.04)
[2023-03-13 01:22] LABS: PCR FLU A Negative PCR FLU A (Negative); PCR FLU B Negative PCR FLU B (Negative); PCR RSV Negative PCR RSV (Negative)
[2023-03-13 01:31] LABS: Troponin, Point-of-Care* 0.06 ng/ml (0.01-0.04)
[2023-03-13 01:37] LABS: SARS PCR* Negative SARS-CoV-2 (Negative)
[2023-03-13] MEDS: FUROSEMIDE 10 MG/ML inj 40 MG IVP (01:42)
--- NOTE | 2023-03-13 02:11 | PC.NURSE ---
report called to [facility] ICU nurse at [facility]. [employer] called, not flying. dispatch contacted for ground transport. patient remains appropriately sedated, appears comfortable. VSS
[2023-03-13] MEDS: KETAMINE HCL 100 MG/ML inj 50 MG IVPB ×2 (02:21→03:01)
--- NOTE | 2023-03-13 02:54 | PC.NURSE ---
report given to EMS, patient transferred to EMS cot. patient transport to [facility]
== END 2023-03-13 03:05 | disposition short-term general hospital (02) ==
PROVIDERS: Emergency Provider Family Medicine
DX: J96.01 Acute respiratory failure with hypoxia (principal)
CPT/HCPCS: 31500; 36415; 71045; 80053; 80306; 81003; 81015; 82077; 82803; 83605; 83880; 84484; 85025; 85379; 87040; 87086; 87631; 93005; 94640; 94660; 94761; 96365; 96366; 96375; 99285; 99291; J0330; J1940; J2543; J2704; J2930; J3370; J3490; J7030; J7120

== ENCOUNTER 2023-03-13 02:29 | Outpatient (CLI) | payer MEDICAID, SELFPAY | END 2023-03-13 02:30 | disposition home or self-care (01) | LOC: AMB 03-15 16:21 | PROVIDERS: Visit Provider Family Medicine | DX: J96.01 Acute respiratory failure with hypoxia (principal) | CPT/HCPCS: A0425; A0434 ==

== ENCOUNTER 2023-05-18 05:16 | Outpatient (CLI) | payer MEDICAID, SELFPAY | END 2023-05-18 05:17 | disposition home or self-care (01) | LOC: AMB 05-19 20:34 | PROVIDERS: PCP Family Medicine; Visit Provider Family Medicine | DX: R06.09 Other forms of dyspnea (principal) | CPT/HCPCS: A0425; A0434 ==

== ENCOUNTER 2023-05-18 05:58 | Inpatient (IN) | payer MEDICAID, SELFPAY ==
[2023-05-18] VITALS (81 sets, daily range): BP systolic 83–230; BP diastolic 59–147; PULSE 26–146; RESP 8–44; TEMP 35.3–36.8; O2SAT 75–100
[2023-05-18] MEDS: LORazepam 2 MG/ML inj 0.5 MG IVP (06:00)
--- NOTE | 2023-05-18 06:02 | CRLHL7_ITS ---
For Patients: As a result of the Century Cures Act, medical imaging exams and procedure reports are released immediately into your electronic medical record. You may view this report before your referring provider. If you have questions, please contact your health care provider. INDICATION: Acute dyspnea COMPARISON: None TECHNIQUE: Single-view study May 18, 2023 at 6:36 a.m. FINDINGS: TUBES AND LINES: None. HEART AND MEDIASTINUM: The heart size is normal. The mediastinal contour appears normal for patient age. LUNGS AND PLEURAL SPACES: Diffuse airspace opacities bilaterally. This is moderate to severe. Primary differential considerations are pulmonary edema versus a diffuse inflammatory process.No pleural effusion or pneumothorax OSSEOUS STRUCTURES: Age-appropriate appearance. No acute focal finding. IMPRESSION: Diffuse airspace opacities bilaterally, moderate to severe. Primary differential considerations are pulmonary edema versus a diffuse inflammatory process. Dictated by Osmani Malloy MD @ 05/18/2023 7:25:25 AM (Electronically Signed)
--- NOTE | 2023-05-18 06:05 | ED_ITS ---
HPI - General Adult General Chief complaint: Shortness of Breath/Dyspnea Stated complaint: chest pain Time Seen by Provider: 05/18/23 06:02 History of Present Illness HPI narrative: Pt arrives via EMS from home for evaluation of difficulty breathing that woke him from his sleep. Patients neighbor called because he could hear him having difficulty breathing. Patient was frothing at the mouth and tripoding for EMS when they arrived. Patients initial HR was 160s. Patient was very diaphoretic as well. 62-year-old man presenting red medical to the emergency department via EMS after neighbor apparently heard him struggling to breathe. EMS arrived to find him extremely dyspneic oxygenating low 80s and diaphoretic and hypertensive with 240s over 100s apparently in the left arm in 80s over 60s in the right arm. Frothing at the mouth. Unable to get much medical information. Placed on BiPAP and reportedly looking much better upon arrival to the emergency department. Was noted to be in the 160s for heart rate Initial blood pressure 230/1 140s in the left arm. Recheck in the right arm at 130s over 80s. Initial blood pressure a is hunched forward dyspneic. He does report having had blood pressure medicines and does not know what they are. Limited answers to questions. Appears annoyed. Unknown cardiac disease. Denies respiratory disease. Answering yes/no to questions as he has transitioned from BiPAP to or CPAP temporarily, he says he just woke today short of breath. He does not want to go back into a mask but clearly has improved from temporary respiratory assist. Leaning forward to cough thick sputum. Seems to indicate that he has been having low abdominal pain when asked about pain. Related Data Allergies Allergy/AdvReac Type Severity Reaction Status Date / Time ranitidine AdvReac itch Verified 02/23/23 23:17 Review of Systems Status of ROS: Reports: unobtainable due to medical condition (A challenge to obtain answers here) PFSH PFS Social History Smoking Status: Current every day smoker Exam Narrative: Exam Narrative: Small stature. Few old tattoos. Is heavily bearded. Sputum staining calvin. Rather dyspneic, labored in breathing. Lower extremities were without edema. Back looks a little reticular almost mottled initially. Moving all extremities equally with good strength. Does seem generally fatigued. Abdomen is soft and does not appear to be tender. Lungs with BiPAP have diffuse breath sounds. I do not hear wheeze do not hear crepitus. Heart is tachycardic appears to be regular. Bruising on the right forearm. Left forearm looked rather dark initially relative to the right. Initial blood pressure on the left elevated in 230/1 40s. Checking the right arm 130s over 80s. Recheck right arm a little higher 140s over 90s Is transitioned to our BiPAP. Does not want to go back on the mask but doing better with this. Leans forward and coughs up thick sputum a couple of times. Const: Vital Signs, click to edit/add: Vital Signs - 24 hr 05/18/23 06:00 05/18/23 06:06 05/18/23 06:07 Temperature Pulse Rate Pulse Rate [Pulse Oximeter] 146 H Respiratory Rate 36 H Blood Pressure Blood Pressure [Le ft Upper Arm] 230/147 H Pulse Oximetry 80 L 94 Oxygen Delivery Me thod Room Air BiPAP Fraction of Inspir ed Oxygen 05/18/23 06:11 05/18/23 06:12 05/18/23 06:15 Temperature Pulse Rate 139 H 137 H 140 H Pulse Rate [Pulse Oximeter] Respiratory Rate Blood Pressure 202/130 H Blood Pressure [Le ft Upper Arm] Pulse Oximetry 95 94 93 Oxygen Delivery Me thod Fraction of Inspir ed Oxygen 05/18/23 06:21 05/18/23 06:30 05/18/23 06:42 Temperature Pulse Rate 141 H 141 H 141 H Pulse Rate [Pulse Oximeter] Respiratory Rate Blood Pressure 205/131 H 145/125 H Blood Pressure [Le ft Upper Arm] Pulse Oximetry 94 94 95 Oxygen Delivery Me thod Fraction of Inspir ed Oxygen 05/18/23 06:45 05/18/23 06:51 05/18/23 07:00 Temperature Pulse Rate 144 H 146 H 139 H Pulse Rate [Pulse Oximeter] Respiratory Rate Blood Pressure 132/116 H Blood Pressure [Le ft Upper Arm] Pulse Oximetry 95 95 93 Oxygen Delivery Me thod Fraction of Inspir ed Oxygen 05/18/23 07:01 05/18/23 07:12 05/18/23 07:15 Temperature Pulse Rate 142 H 132 H 130 H Pulse Rate [Pulse Oximeter] Respiratory Rate Blood Pressure 130/112 H 134/106 H Blood Pressure [Le ft Upper Arm] Pulse Oximetry 93 93 95 Oxygen Delivery Me thod Fraction of Inspir ed Oxygen 05/18/23 07:20 05/18/23 07:25 05/18/23 07:26 Temperature 95.5 F L Pulse Rate 120 H 119 H Pulse Rate [Pulse Oximeter] 140 H Respiratory Rate 28 H Blood Pressure 105/81 106/87 Blood Pressure [Le ft Upper Arm] 134/106 H Pulse Oximetry 92 94 93 Oxygen Delivery Me thod BiPAP Fraction of Inspir ed Oxygen 50 05/18/23 07:30 05/18/23 07:32 05/18/23 07:41 Temperature Pulse Rate 117 H 118 H 119 H Pulse Rate [Pulse Oximeter] Respiratory Rate Blood Pressure 100/78 102/88 Blood Pressure [Le ft Upper Arm] Pulse Oximetry 94 94 96 Oxygen Delivery Me thod Fraction of Inspir ed Oxygen 05/18/23 07:44 05/18/23 07:45 05/18/23 07:51 Temperature Pulse Rate 120 H 118 H 114 H Pulse Rate [Pulse Oximeter] Respiratory Rate Blood Pressure 110/91 H 106/87 Blood Pressure [Le ft Upper Arm] Pulse Oximetry 94 94 96 Oxygen Delivery Me thod Fraction of Inspir ed Oxygen 05/18/23 08:16 Temperature 95.5 F L Pulse Rate Pulse Rate [Pulse Oximeter] 105 H Respiratory Rate 28 H Blood Pressure Blood Pressure [Le ft Upper Arm] 105/82 Pulse Oximetry 97 Oxygen Delivery Me thod BiPAP Fraction of Inspir ed Oxygen 50 Documenting provider has reviewed patient's vital signs: yes Course Vital Signs Vital signs: Initial Vital Signs Pulse Rate 146 H 05/18/23 06:00 Respiratory Rate 36 H 05/18/23 06:00 Blood Pressure 230/147 H 05/18/23 06:00 Blood Pressure Mean 174 H 05/18/23 06:00 Pulse Oximetry 80 L 05/18/23 06:00 Oxygen Delivery Method Room Air 05/18/23 06:00 Vital Signs Pulse Rate 146 H 05/18/23 06:00 Respiratory Rate 36 H 05/18/23 06:00 Blood Pressure 230/147 H 05/18/23 06:00 Pulse Oximetry 80 L 05/18/23 06:00 Oxygen Delivery Method Room Air 05/18/23 06:00 Temperature 95.5 F L 05/18/23 08:16 Pulse Rate 105 H 05/18/23 08:16 Respiratory Rate 28 H 05/18/23 08:16 Blood Pressure 105/82 05/18/23 08:16 Pulse Oximetry 97 05/18/23 08:16 Oxygen Delivery Method BiPAP 05/18/23 08:16 Fraction of Inspired Oxygen 50 05/18/23 08:16 Medications Administered Medications: Discontinued Medications Generic Name Dose Route Start Last Admin Trade Name Zuleika PRN Reason Stop Dose Admin Furosemide 40 mg 05/18/23 07:57 05/18/23 08:08 Furosemide 10 Mg/Ml Inj IVP 05/18/23 07:58 20 mg ONCE ONE Administration Furosemide 20 mg 05/18/23 07:57 05/18/23 08:14 Furosemide 10 Mg/Ml Inj IVP 05/18/23 07:58 Not Given ONCE ONE Labetalol HCl 5 mg 05/18/23 07:57 05/18/23 08:08 Labetalol Hcl 5 Mg/Ml Inj IVP 05/18/23 07:58 Not Given ONCE ONE Lorazepam 0.5 mg 05/18/23 06:02 05/18/23 06:00 Lorazepam 2 Mg/Ml Inj IVP 05/18/23 06:03 0.5 mg ONCE ONE Administration Medical Decision Making MDM Narrative Medical decision making narrative: Limited information. Concerning vitals. Seems quite stressed. Giving small dose of Ativan. I have also requested dose of nitro especially in light of rather elevated pressures. Initial EKG does appear to show a sinus tachycardia 135. I think this is less likely to be supraventricular tachycardia at this rate. Regular not inconsistent with aflutter but I think I see some P waves buried in here. Differential includes pneumonia, pulmonary embolus, exacerbation of heart failure, cardiovascular ischemic event, COVID/influenza +/-COPD exacerbation. Contemplating nitroglycerin dosing for heart failure/pulmonary congestion and should lower pressures as well. Nursing able to locate record indicating an alcohol-related series of hospitalizations. Pending labs and chest x-ray at this time. Lost initial IV. Chest x-ray seems to show bilateral diffuse congestive pattern. Pulmonary edema or maybe RSV contributing Locating records noting approximately 2 months ago was intubated with acute resp iratory failure. Treated for presumed pulmonary infection and potential sepsis. Was noted to be quite hypertensive and tachycardic at that time as well. Transferred to [facility]. Blood cultures were ultimately negative. On repeated evaluation here is less tachycardic in the 1 teens. Like to repeat the VBGs since he has been on BiPAP now for couple of hours. Repeat trop. Repeat EKG now a little slower Do need results of the triple swab. Radiology over-read of chest x-ray HEART AND MEDIASTINUM: The heart size is normal. The mediastinal contour appears normal for patient age. LUNGS AND PLEURAL SPACES: Diffuse airspace opacities bilaterally. This is moderate to severe. Primary differential considerations are pulmonary edema versus a diffuse inflammatory process.No pleural effusion or pneumothorax OSSEOUS STRUCTURES: Age-appropriate appearance. No acute focal finding. IMPRESSION: Diffuse airspace opacities bilaterally, moderate to severe. Primary differential considerations are pulmonary edema versus a diffuse inflammatory process. D-dimer again notably high in the setting of rather elevated creatinine. Initial troponin was also mildly elevated. Had not felt stable for CT scanning at this time. At this point appears to have respiratory failure, a respiratory acidosis with pulmonary edema likely secondary to acute heart failure in the setting of acute kidney injury. Furosemide has been dosed. Discussed this case with our hospitalist who is thankfully already aware of this patient. Anticipating admission. VBGs are improved. Troponin is little more elevated now at 0.12 however I suspect this is more due to strain from marked tachycardia. ProBNP quite elevated and heart failure likely contributing also to this elevated troponin Persistently puzzling discrepancy in blood pressures where left arm is markedly higher than right arm. This may require further imaging. Assessed with hospitalist. Trial off BiPAP is unsuccessful with elevation in heart rate and pressures Lab Data Lab results reviewed: Yes I reviewed the patient's lab results Labs: Lab Results 05/18/23 05/18/23 05/18/23 Range/Units 06:04 06:20 07:15 WBC 13.69 H (4.50-11.00) K/uL RBC 3.44 L (4.30-5.90) m/uL Hgb 11.0 L (13.5-17.5) gm/dL Hct 34.9 L (37.0-53.0) % MCV 102 H (80-100) fL MCH 32 (26-34) pg MCHC 32 (32-36) gm/dL RDW Coeff of Martir 14.7 (11.5-15.5) % Plt Count 341 (140-440) K/uL Neut % (Auto) 61.6 (42.0-72.0) % Lymph % (Auto) 30.3 (20-44) % Woodward % (Auto) 4.5 (0.0-11.0) % Eos % (Auto) 2.3 (0.0-7.0) % Baso % (Auto) 0.4 (0.0-3.0) % Neut # (Auto) 8.40 H (1.7-7.0) K/uL Lymph # (Auto) 4.10 H (0.90-2.90) K/uL Woodward # (Auto) 0.60 (0.00-0.90) K/UL Eos # (Auto) 0.30 (0.00-0.50) K/uL Baso # (Auto) 0.10 (0.00-0.30) K/uL Abs Immat Gran (auto) 0.10 (0.00-0.30) K/uL Imm/Tot Granulo (auto) 0.9 % INR 1.00 (0.91-1.10) APTT 28 (23-33) Seconds D-Dimer Quant (PE/DVT) 4.18 H (0.00-0.50) ug/ml VBG pH 7.077 L* (7.32-7.43) VBG pCO2 40 (40-50) mmHG VBG pO2 87.8 H (25-47) mmHG VBG HCO3 12 L (21-28) mmol/L Sodium 139 (135-149) mmol/L Potassium 4.6 (3.6-5.1) mmol/L Chloride 114 (96-114) mmol/L Carbon Dioxide 10 L (20-32) mmol/L Anion Gap 15 (7-15) mEq/L BUN 56 H (7-30) mg/dL Creatinine 3.7 H (0.5-1.5) mg/dL Estimated GFR 18 ml/min Glucose 222 H (60-115) mg/dL Lactate 1.6 (0.5-1.9) mmol/L Calcium 8.9 (8.4-10.6) mg/dL Magnesium 1.8 (1.5-2.6) mg/dL Total Bilirubin 0.3 (0.1-1.5) mg/dL Direct Bilirubin 0.0 (0.0-0.5) mg/dL AST 22 (12-35) U/L ALT 17 (4-50) U/L Alkaline Phosphatase 177 H (40-150) U/L Troponin I 0.05 H (0.01-0.04) ng/mL C-Reactive Protein 0.6 (0.5-1.0) mg/dL NT-Pro-B Natriuret Pep 54529 pg/mL Total Protein 7.3 (6.0-8.3) g/dL Albumin 4.1 (3.3-5.0) g/dL TSH 1.260 (0.270-4.20) uIU/mL Ethyl Alcohol < 0.01 L (0.01-0.03) % SARS-CoV-2 (PCR) Negative SARS-CoV-2 (Negative) Influenza Type A (PCR) Negative PCR FLU A (Negative) Influenza Type B (PCR) Negative PCR FLU B (Negative) RSV (PCR) Negative PCR RSV (Negative) POC Troponin I 0.06 H (0.01-0.04) ng/ml 05/18/23 05/18/23 Range/Units 07:46 08:03 WBC (4.50-11.00) K/uL RBC (4.30-5.90) m/uL Hgb (13.5-17.5) gm/dL Hct (37.0-53.0) % MCV (80-100) fL MCH (26-34) pg MCHC (32-36) gm/dL RDW Coeff of Martir (11.5-15.5) % Plt Count (140-440) K/uL Neut % (Auto) (42.0-72.0) % Lymph % (Auto) (20-44) % Woodward % (Auto) (0.0-11.0) % Eos % (Auto) (0.0-7.0) % Baso % (Auto) (0.0-3.0) % Neut # (Auto) (1.7-7.0) K/uL Lymph # (Auto) (0.90-2.90) K/uL Woodward # (Auto) (0.00-0.90) K/UL Eos # (Auto) (0.00-0.50) K/uL Baso # (Auto) (0.00-0.30) K/uL Abs Immat Gran (auto) (0.00-0.30) K/uL Imm/Tot Granulo (auto) % INR (0.91-1.10) APTT (23-33) Seconds D-Dimer Quant (PE/DVT) (0.00-0.50) ug/ml VBG pH 7.256 L (7.32-7.43) VBG pCO2 28 L (40-50) mmHG VBG pO2 57.1 H (25-47) mmHG VBG HCO3 13 L (21-28) mmol/L Sodium (135-149) mmol/L Potassium (3.6-5.1) mmol/L Chloride (96-114) mmol/L Carbon Dioxide (20-32) mmol/L Anion Gap (7-15) mEq/L BUN (7-30) mg/dL Creatinine (0.5-1.5) mg/dL Estimated GFR ml/min Glucose (60-115) mg/dL Lactate (0.5-1.9) mmol/L Calcium (8.4-10.6) mg/dL Magnesium (1.5-2.6) mg/dL Total Bilirubin (0.1-1.5) mg/dL Direct Bilirubin (0.0-0.5) mg/dL AST (12-35) U/L ALT (4-50) U/L Alkaline Phosphatase (40-150) U/L Troponin I (0.01-0.04) ng/mL C-Reactive Protein (0.5-1.0) mg/dL NT-Pro-B Natriuret Pep pg/mL Total Protein (6.0-8.3) g/dL Albumin (3.3-5.0) g/dL TSH (0.270-4.20) uIU/mL Ethyl Alcohol (0.01-0.03) % SARS-CoV-2 (PCR) (Negative) Influenza Type A (PCR) (Negative) Influenza Type B (PCR) (Negative) RSV (PCR) (Negative) POC Troponin I 0.12 H (0.01-0.04) ng/ml ECG Data Attestation: I personally reviewed and interpreted this ECG as follows: (Sinus tachycardia rate of 135. EKG #2 more clearly sinus tachycardia at 112) Critical Care Time Critical Care Time Critical Care Time: Yes Attestation: The patient required my highest level preparedness to intervene emergently and I personally spent this critical care time directly and personally managing the patient. This critical care time included: Obtaining a history; Examining the patient; Pulse oximetry; Ordering and reviewing of studies; Arranging urgent treatment with development of a management plan; Evaluation of patients response to treatment; Frequent reassessment discussions with other providers. This critical care time was performed to assess and manage the high probability of imminent life-threatening deterioration that could result in multiorgan failure. It was exclusive of separate billable procedures and treating other patients and teaching time. Total Critical Care Time in Minutes: 90 Discharge Plan Discharge Clinical Impression: Acute respiratory failure, Heart failure, Pulmonary edema Patient Disposition: Admitted As Observation Condition: Improved
[2023-05-18 06:28] LABS: HCO3 VBG 12 mmol/L (21-28); PCO2 VBG 40 mmHG (40-50); PO2 VBG 87.8 mmHG (25-47)
[2023-05-18 06:34] LABS: pH VBG 7.077 (7.32-7.43)
[2023-05-18 06:35] LABS: Troponin, Point-of-Care* 0.06 ng/ml (0.01-0.04)
[2023-05-18 06:37] LABS: Lactate* 1.6 mmol/L (0.5-1.9)
[2023-05-18 06:38] LABS: Basophils Percent Auto 0.4 % (0.0-3.0); Eosinophils Percent Auto 2.3 % (0.0-7.0); Hematocrit 34.9 % (37.0-53.0); Immature Granulocytes Pct Auto 0.9 %; Lymphocytes Percent Auto 30.3 % (20-44); Mean Corpuscular HGB Conc 32 gm/dL (32-36); Mean Corpuscular Hemoglobin 32 pg (26-34); Mean Corpuscular Volume 102 fL (80-100); Monocytes Percent Auto 4.5 % (0.0-11.0); Neutrophils Percent Auto 61.6 % (42.0-72.0); Platelet Count* 341 K/uL (140-440); RDW Coefficient of Variation % 14.7 % (11.5-15.5); Red Blood Count 3.44 m/uL (4.30-5.90); White Blood Count* 13.69 K/uL (4.50-11.00)
[2023-05-18 06:45] LABS: Slide Review Reflex No
[2023-05-18 06:57] LABS: Chloride* 114 mmol/L (96-114); Potassium* 4.6 mmol/L (3.6-5.1); Sodium* 139 mmol/L (135-149)
[2023-05-18 06:58] LABS: Albumin* 4.1 g/dL (3.3-5.0)
[2023-05-18 07:00] LABS: Anion Gap 15 mEq/L (7-15); Blood Urea Nitrogen* 56 mg/dL (7-30); Carbon Dioxide* 10 mmol/L (20-32); Creatinine* 3.7 mg/dL (0.5-1.5); Estimated Glomerular Filt Rate 18 ml/min; Glucose* 222 mg/dL (60-115)
[2023-05-18 07:01] LABS: Alanine Aminotransferase* 17 U/L (4-50); Alkaline Phosphatase* 177 U/L (40-150); Aspartate Amino Transferase* 22 U/L (12-35); Bilirubin Total* 0.3 mg/dL (0.1-1.5); Calcium* 8.9 mg/dL (8.4-10.6); Magnesium* 1.8 mg/dL (1.5-2.6); Total Protein* 7.3 g/dL (6.0-8.3)
[2023-05-18 07:04] LABS: C Reactive Protein* 0.6 mg/dL (0.5-1.0)
[2023-05-18 07:10] LABS: Ethanol* < 0.01 % (0.01-0.03); NT Pro B Type NatriureticPept* 12600 pg/mL
[2023-05-18 07:12] LABS: Troponin I* 0.05 ng/mL (0.01-0.04)
[2023-05-18 07:14] LABS: Prothrombin Time 13.8 Seconds
[2023-05-18 07:15] LABS: Partial Thromboplastin Time* 28 Seconds (23-33)
[2023-05-18 07:24] LABS: D Dimer Quantitative* 4.18 ug/ml (0.00-0.50)
[2023-05-18 07:51] LABS: HCO3 VBG 13 mmol/L (21-28); PCO2 VBG 28 mmHG (40-50); PO2 VBG 57.1 mmHG (25-47); pH VBG 7.256 (7.32-7.43)
[2023-05-18 08:01] LABS: PCR FLU A Negative PCR FLU A (Negative); PCR FLU B Negative PCR FLU B (Negative); PCR RSV Negative PCR RSV (Negative)
[2023-05-18 08:03] LABS: SARS PCR* Negative SARS-CoV-2 (Negative)
[2023-05-18] MEDS: FUROSEMIDE 10 MG/ML inj 40 MG IVP (08:08)
[2023-05-18 08:19] LABS: Troponin, Point-of-Care* 0.12 ng/ml (0.01-0.04)
--- NOTE | 2023-05-18 08:40 | CRLHL7_ITS ---
For Patients: As a result of the Cures Act, medical imaging exams and procedure reports are released immediately into your electronic medical record. You may view this report before your referring provider. If you have questions, please contact your health care provider. INDICATION: Altered mental status. TECHNIQUE: Multiple axial images were obtained through the brain without contrast. Sagittal and coronal re-formatted images were obtained. COMPARISON: None. FINDINGS: The ventricles sulci are prominent. There is no mass effect or midline shift. There is no intracranial hemorrhage. There is decreased attenuation in the periventricular white matter consistent with small vessel ischemic disease. There is no skull fracture seen. IMPRESSION: No acute intracranial abnormality. Please note that all CT scans at this facility use dose modulation, iterative reconstruction, and/or weight-based dosing when appropriate to reduce radiation dose to as low as reasonably achievable. Dictated by Dmitriy Valencia MD @ 05/18/2023 10:14:15 AM (Electronically Signed)
[2023-05-18] MEDS: FUROSEMIDE 10 MG/ML inj 20 MG IVP (08:52)
[2023-05-18] MEDS: LORazepam 2 MG/ML inj 1 MG IVP (08:52)
[2023-05-18] MEDS: LABETALOL HCL 5 MG/ML inj 10 MG IVP (09:03)
--- NOTE | 2023-05-18 09:10 | RESP.RT ---
Pt. seen in ED. Already on BIPAP, comfortable. Adjusted settings and tried another mask style for pt. Pt tolerating current settings well, leaving mask on. Sealing adequately, Pt. does have a calvin. Monitoring BP and chance that he may begin to DT. If concerns about either, The use of BIPAP will need to be revaluated.
[2023-05-18] MEDS: lidocaine HCL 2 % JELLY (TOP) STERILE 6 ML TOPICAL (09:27)
[2023-05-18 09:50] LABS: Appearance Urine Slightly Cloudy (Clear); Bilirubin Urine Negative (Negative); Blood Urine Trace-intact (Negative); Color Urine Yellow (Yellow); Glucose Urine Trace (Negative); Ketones Urine Negative (Negative); Leukocyte Esterase Urine Negative (Negative); Nitrite Urine Negative (Negative); Protein Urine 3+ (Negative); Urobilinogen Urine 0.2 (0.2-1.0); pH Urine 5.5 (5.0-8.5)
[2023-05-18 09:56] LABS: Amphetamine Screen Urine Negative (Negative); Barbiturate Screen Urine Negative (Negative); Benzodiazepines Screen Urine Negative (Negative); Cannabinoid Screen Urine POSITIVE (Negative); Cocaine Screen Urine Negative (Negative); Methadone Screen Urine Negative (Negative); Methamphetamines Screen Urine Negative (Negative); Opiate Screen Urine Negative (Negative); Oxycodone Screen Urine Negative (Negative); Phencyclidine Screen Urine Negative (Negative); Tricyclic Antidepressant Urine Negative (Negative)
[2023-05-18 10:07] LABS: Legionella pneumo Ag Urine L. pneumo Negative (Negative); S pneumo Ag Urine S. pneumo Negative (Negative)
[2023-05-18 10:08] LABS: Bacteria Urine Few; Squamous Epithelial Cell Urine Few (None-Few)
--- NOTE | 2023-05-18 10:35 | PC.NURSE ---
7-1010 pt was on Bi-pap. RT was seeing pt. PT was cold and tara hugger was applied. VS taken and md update. Srivastava was started. UA sent. Lasix, Ativan and labetalol was given. tele was 90-140. Echo was done. CT done. SL patent 2x. PT is angry and mad with cares. he was not talking at start of shift but take he was talking. he is angry and does not want to be here. and he told the technical report writer he does not want to be saved. he has not done any follow up care and no meds since we transferred him on mar 13 to [facility]
[2023-05-18] MEDS: ENOXAPARIN 60 MG/0.6 ML INJ SUBCUT (10:46)
[2023-05-18] MEDS: PHENobarbitaL 260 MG in 0.9 % SODIUM CHLORIDE 100 ml 100 ML 208 MG IVPB (10:54)
[2023-05-18] MEDS: PIPERACILLIN/TAZOBACTAM 3.375 GM in 0.9 % SODIUM CHLORIDE Mini-bag 100 ML IVPB (11:01)
--- NOTE | 2023-05-18 11:22 | RESP.RT ---
Pt on oxymask now, requesting a break from BIPAP. Keep on low flow oxygen, maintaining SPO2 88-90%, as he is a chronic smoker and has COPD. If RR increases greater than 25 consider returning to BIPAP.
[2023-05-18 11:38] LABS: Hemoglobin A1C* 4.8 % (0-5.6)
--- NOTE | 2023-05-18 11:43 | PC.NURSE ---
Pt no longer tolerating Bipap. Transitioned to 1L/O2 via oxymask, SpO2 90% and RR= 24 while pt appears to be asleep. RT aware. Third IV placed, phenobarb infused, abx infusing at this time. VS WNL. Bairhugger discontinued, T= 98.1 via temporal.
[2023-05-18] MEDS: AZITHROMYCIN 500 MG in 0.9 % SODIUM CHLORIDE 250 ml 250 ML 255 MG IVPB (12:37)
--- NOTE | 2023-05-18 12:52 | PM.IMHP1 ---
Hospitalist- H&P: HPI History of Present Illness Date Seen: 05/18/23 Chief complaint: chest pain Narrative: Elvin Reardon is a 62 year old male admitted through the emergency department after being noted by his neighbor to have trouble breathing. 911 was called and EMS transport him to the emergency department EMS found the patient to be frothing at the mouth and tripoding in respiratory distress. He was diaphoretic with O2 sats in the low 80s and hypertensive with blood pressures of 240/100 and pulse in the 160s. Patient was obtained ended and difficult to arouse. Unable to give significant history on initial presentation. Medical records show that he had a similar episode 03/13/2023. He was intubated and transferred to [facility] for ICU care. He was hospitalized there for 6 days. Discharge diagnosis was biventricular systolic heart failure. His ejection fraction was 23%. This was thought to be a dilated cardiomyopathy. He was un known if this was ischemic verses alcohol-related verses mixed cause. He was found to have pulmonary hypertension with a right ventricular pressure of 77 mmHg. He was found to have acute on chronic kidney disease with a creatinine of 4.0. He had severe multi-vessel coronary calcifications on his chest CT. He was thought to have community-acquired pneumonia treated with a Zithromax and ceftriaxone. He had an anion gap metabolic acidosis and hyperphosphatemia. He had dark stools but fecal occult testing was negative for blood. He was referred to follow-up for primary care as well as Nephrology. He was started on guideline directed therapy including carvedilol, low-dose lisinopril. It is unclear whether he filled these prescriptions but appears that he has not been continuing on them and he has not had any outpatient follow-up for his chronic heart disease, kidney disease and vascular disease. Review of Systems Narrative: Unable to obtain [facility] Medical History (Updated 05/18/23 @ 13:23 by Dmitriy Kelly MD) Altered mental status ?R41.82 - Altered mental status, unspecified (ICD-10) Non-STEMI (non-ST elevated myocardial infarction) ?I21.4 - Non-ST elevation (NSTEMI) myocardial infarction (ICD-10) Smoking ?F17.200 - Nicotine dependence, unspecified, uncomplicated (ICD-10) Alcohol use disorder ?F10.90 - Alcohol use, unspecified, uncomplicated (ICD-10) COPD (chronic obstructive pulmonary disease) ?J44.9 - Chronic obstructive pulmonary disease, unspecified (ICD-10) Coronary artery disease ?I25.10 - Atherosclerotic heart disease of [place] coronary artery without angina pectoris (ICD-10) Stage 4 chronic kidney disease ?N18.4 - Chronic kidney disease, stage 4 (severe) (ICD-10) Pulmonary hypertension ?I27.20 - Pulmonary hypertension, unspecified (ICD-10) Right heart failure ?I50.810 - Right heart failure, unspecified (ICD-10) Heart failure with reduced ejection fraction ?I50.20 - Unspecified systolic (congestive) heart failure (ICD-10) Social History (Updated 05/18/23 @ 13:07 by Dmitriy Kelly MD) Narrative: Patient apparently lives in an apartment in [place]. Smokes a pack of cigarettes a day. He has a history of alcohol abuse but current consumption is unknown. Unable to discuss plan of care or goals of care What is your current living situation?: I presently have a place to live Problems where you live: unable to answer Problems where you live details: unknown In the past 12 months, utilities in danger of being shut off: unable to answer In past 12 months, lack of transportation kept you from medical appts, meetings, work, or getting things needed for daily living: unable to answer In the past 12 mos, have been you worried that your food would run out before you had money to buy more?: unable to answer In the past 12 mos, the food you bought just didn't last and you didn't have money to buy more?: unable to answer Highest level of school completed/degree received: don't know Smoking Status: Current every day smoker Second hand tobacco smoke exposure: Yes How often do you have a drink containing alcohol: 4 or more times a week AUDIT-C Alcohol total score: 4 Non-prescribed substance use details: unknown How often does anyone, including family, friends and others, physically hurt you: never How often does anyone, including family, friends and others, insult or talk down to you: never How often does anyone, including family, friends and others, threaten you with harm: never How often does anyone, including family, friends and others, scream or curse at you: never service: No Meds Home Medications and Allergies Home Medications Medication Instructions Recorded Confirmed Type amlodipine 5 mg tablet 5 mg PO DAILY 05/18/23 05/18/23 History carvedilol 12.5 mg tablet 12.5 mg PO BID 05/18/23 05/18/23 History Allergies Allergy/AdvReac Type Severity Reaction Status Date / Time ranitidine AdvReac itch Verified 02/23/23 23:17 Exam Narrative: Exam Narrative: He is seen in the emergency department lying on the gurney asleep. He does not arouse to voice. He intermittently arouses to touch and repositioning for physical examination. He does not follow any commands. He does not give any significant verbal responses. No obvious facial asymmetry. Neck is supple without obvious trauma. Head is without obvious trauma. Respirations with diffuse mild expiratory crackles and wheezes. Increased work and rate of breathing. Cardiovascular: S1, S2, regular rate and rhythm. Abdomen: Bowel sounds active. Abdomen is soft without tenderness or mass. Extremities without edema. He has fairly good perfusion in all 4 extremities. Diminished but intact pulses. Const: Vital Signs, click to edit/add: Vital Signs - 24 hr 05/18/23 06:00 05/18/23 06:06 05/18/23 06:07 Temperature Pulse Rate Pulse Rate [Pulse Oximeter] 146 H Respiratory Rate 36 H Blood Pressure Blood Pressure [Le ft Arm] Blood Pressure [Le ft Upper Arm] 230/147 H Pulse Oximetry 80 L 94 Oxygen Delivery Me thod Room Air BiPAP Oxygen Flow Rate Fraction of Inspir ed Oxygen 05/18/23 06:11 05/18/23 06:12 05/18/23 06:15 Temperature Pulse Rate 139 H 137 H 140 H Pulse Rate [Pulse Oximeter] Respiratory Rate Blood Pressure 202/130 H Blood Pressure [Le ft Arm] Blood Pressure [Le ft Upper Arm] Pulse Oximetry 95 94 93 Oxygen Delivery Me thod Oxygen Flow Rate Fraction of Inspir ed Oxygen 05/18/23 06:21 05/18/23 06:30 05/18/23 06:42 Temperature Pulse Rate 141 H 141 H 141 H Pulse Rate [Pulse Oximeter] Respiratory Rate Blood Pressure 205/131 H 145/125 H Blood Pressure [Le ft Arm] Blood Pressure [Le ft Upper Arm] Pulse Oximetry 94 94 95 Oxygen Delivery Me thod Oxygen Flow Rate Fraction of Inspir ed Oxygen 05/18/23 06:45 05/18/23 06:51 05/18/23 07:00 Temperature Pulse Rate 144 H 146 H 139 H Pulse Rate [Pulse Oximeter] Respiratory Rate Blood Pressure 132/116 H Blood Pressure [Le ft Arm] Blood Pressure [Le ft Upper Arm] Pulse Oximetry 95 95 93 Oxygen Delivery Me thod Oxygen Flow Rate Fraction of Inspir ed Oxygen 05/18/23 07:01 05/18/23 07:10 05/18/23 07:12 Temperature 95.5 F L Pulse Rate 142 H 132 H Pulse Rate [Pulse Oximeter] 134 H Respiratory Rate 28 H Blood Pressure 130/112 H 134/106 H Blood Pressure [Le ft Arm] Blood Pressure [Le ft Upper Arm] 134/106 H Pulse Oximetry 93 97 93 Oxygen Delivery Me thod BiPAP Oxygen Flow Rate Fraction of Inspir ed Oxygen 05/18/23 07:15 05/18/23 07:20 05/18/23 07:20 Temperature 95.5 F L Pulse Rate 130 H Pulse Rate [Pulse Oximeter] 140 H 124 H Respiratory Rate 28 H 26 H Blood Pressure Blood Pressure [Le ft Arm] Blood Pressure [Le ft Upper Arm] 134/106 H 105/81 Pulse Oximetry 95 92 98 Oxygen Delivery Me thod BiPAP BiPAP Oxygen Flow Rate Fraction of Inspir ed Oxygen 50 50 05/18/23 07:25 05/18/23 07:26 05/18/23 07:30 Temperature Pulse Rate 120 H 119 H 117 H Pulse Rate [Pulse Oximeter] Respiratory Rate Blood Pressure 105/81 106/87 Blood Pressure [Le ft Arm] Blood Pressure [Le ft Upper Arm] Pulse Oximetry 94 93 94 Oxygen Delivery Me thod Oxygen Flow Rate Fraction of Inspir ed Oxygen 05/18/23 07:32 05/18/23 07:41 05/18/23 07:44 Temperature Pulse Rate 118 H 119 H 120 H Pulse Rate [Pulse Oximeter] Respiratory Rate Blood Pressure 100/78 102/88 110/91 H Blood Pressure [Le ft Arm] Blood Pressure [Le ft Upper Arm] Pulse Oximetry 94 96 94 Oxygen Delivery Me thod Oxygen Flow Rate Fraction of Inspir ed Oxygen 05/18/23 07:45 05/18/23 07:51 05/18/23 07:52 Temperature Pulse Rate 118 H 114 H 110 H Pulse Rate [Pulse Oximeter] Respiratory Rate Blood Pressure 106/87 Blood Pressure [Le ft Arm] Blood Pressure [Le ft Upper Arm] Pulse Oximetry 94 96 95 Oxygen Delivery Me thod Oxygen Flow Rate Fraction of Inspir ed Oxygen 05/18/23 08:00 05/18/23 08:01 05/18/23 08:11 Temperature Pulse Rate 109 H 109 H 110 H Pulse Rate [Pulse Oximeter] Respiratory Rate Blood Pressure 105/84 105/82 Blood Pressure [Le ft Arm] Blood Pressure [Le ft Upper Arm] Pulse Oximetry 97 97 96 Oxygen Delivery Me thod Oxygen Flow Rate Fraction of Inspir ed Oxygen 05/18/23 08:15 05/18/23 08:16 05/18/23 08:21 Temperature 95.5 F L Pulse Rate 105 H 108 H Pulse Rate [Pulse Oximeter] 105 H Respiratory Rate 28 H Blood Pressure 111/96 H Blood Pressure [Le ft Arm] Blood Pressure [Le ft Upper Arm] 105/82 Pulse Oximetry 97 97 98 Oxygen Delivery Me thod BiPAP Oxygen Flow Rate Fraction of Inspir ed Oxygen 50 05/18/23 08:30 05/18/23 08:31 05/18/23 08:32 Temperature Pulse Rate 108 H 109 H 116 H Pulse Rate [Pulse Oximeter] Respiratory Rate Blood Pressure 155/97 H Blood Pressure [Le ft Arm] Blood Pressure [Le ft Upper Arm] Pulse Oximetry 95 92 91 Oxygen Delivery Me thod Oxygen Flow Rate Fraction of Inspir ed Oxygen 05/18/23 08:33 05/18/23 08:36 05/18/23 08:41 Temperature Pulse Rate 115 H 119 H 106 H Pulse Rate [Pulse Oximeter] Respiratory Rate Blood Pressure 167/113 H 112/95 H 116/89 Blood Pressure [Le ft Arm] Blood Pressure [Le ft Upper Arm] Pulse Oximetry 90 100 96 Oxygen Delivery Me thod Oxygen Flow Rate Fraction of Inspir ed Oxygen 05/18/23 08:45 05/18/23 08:51 05/18/23 09:00 Temperature 96.0 F L Pulse Rate 108 H 100 Pulse Rate [Pulse Oximeter] 89 Respiratory Rate 30 H Blood Pressure 106/83 Blood Pressure [Le ft Arm] Blood Pressure [Le ft Upper Arm] 116/90 H Pulse Oximetry 94 94 92 Oxygen Delivery Me thod BiPAP Oxygen Flow Rate Fraction of Inspir ed Oxygen 30 05/18/23 09:00 05/18/23 09:01 05/18/23 09:02 Temperature Pulse Rate 102 H 101 H 101 H Pulse Rate [Pulse Oximeter] Respiratory Rate Blood Pressure 116/90 H Blood Pressure [Le ft Arm] Blood Pressure [Le ft Upper Arm] Pulse Oximetry 91 89 90 Oxygen Delivery Me thod Oxygen Flow Rate Fraction of Inspir ed Oxygen 05/18/23 09:07 05/18/23 09:11 05/18/23 09:15 Temperature Pulse Rate 86 84 Pulse Rate [Pulse Oximeter] Respiratory Rate Blood Pressure 92/65 Blood Pressure [Le ft Arm] Blood Pressure [Le ft Upper Arm] Pulse Oximetry 92 90 Oxygen Delivery Me thod Oxygen Flow Rate Fraction of Inspir ed Oxygen 30 05/18/23 09:21 05/18/23 09:24 05/18/23 09:24 Temperature Pulse Rate 84 85 Pulse Rate [Pulse Oximeter] 86 Respiratory Rate 26 H Blood Pressure 89/71 L 85/59 L Blood Pressure [Le ft Arm] Blood Pressure [Le ft Upper Arm] 85/59 L Pulse Oximetry 92 92 91 Oxygen Delivery Me thod BiPAP Oxygen Flow Rate Fraction of Inspir ed Oxygen 30 05/18/23 09:28 05/18/23 09:30 05/18/23 09:31 Temperature Pulse Rate 87 93 85 Pulse Rate [Pulse Oximeter] Respiratory Rate Blood Pressure 94/75 99/74 Blood Pressure [Le ft Arm] Blood Pressure [Le ft Upper Arm] Pulse Oximetry 92 92 91 Oxygen Delivery Me thod Oxygen Flow Rate Fraction of Inspir ed Oxygen 05/18/23 09:38 05/18/23 09:42 05/18/23 10:18 Temperature 96.0 F L Pulse Rate 87 89 Pulse Rate [Pulse Oximeter] 90 Respiratory Rate 26 H Blood Pressure 107/81 91/69 Blood Pressure [Le ft Arm] Blood Pressure [Le ft Upper Arm] 98/70 Pulse Oximetry 92 91 Oxygen Delivery Me thod Oxygen Flow Rate Fraction of Inspir ed Oxygen 05/18/23 10:45 05/18/23 11:37 05/18/23 11:40 Temperature 96.4 F L 98.3 F Pulse Rate Pulse Rate [Pulse Oximeter] 81 Respiratory Rate 26 H 24 Blood Pressure Blood Pressure [Le ft Arm] 137/94 H 120/76 Blood Pressure [Le ft Upper Arm] Pulse Oximetry 91 90 90 Oxygen Delivery Me thod BiPAP OxyMask Oxygen Flow Rate 1 Fraction of Inspir ed Oxygen 30 05/18/23 11:40 Temperature 98.3 F Pulse Rate Pulse Rate [Pulse Oximeter] 81 Respiratory Rate 24 Blood Pressure Blood Pressure [Le ft Arm] 120/76 Blood Pressure [Le ft Upper Arm] Pulse Oximetry 90 Oxygen Delivery Me thod OxyMask Oxygen Flow Rate 1 Fraction of Inspir ed Oxygen Documenting provider has reviewed patient's vital signs: yes Hospitalist - H&P: Result Labs Labs: Short CBC 05/18/23 Range/Units 06:20 WBC 13.69 H (4.50-11.00) K/uL Hgb 11.0 L (13.5-17.5) gm/dL Hct 34.9 L (37.0-53.0) % Plt Count 341 (140-440) K/uL BMP 05/18/23 06:20 Sodium 139 Potassium 4.6 Chloride 114 Carbon Dioxide 10 L BUN 56 H Creatinine 3.7 H Glucose 222 H Calcium 8.9 Cardiac Enzymes 05/18/23 Range/Units 06:20 Troponin I 0.05 H (0.01-0.04) ng/mL Liver Function 05/18/23 Range/Units 06:20 Total Bilirubin 0.3 (0.1-1.5) mg/dL Direct Bilirubin 0.0 (0.0-0.5) mg/dL AST 22 (12-35) U/L ALT 17 (4-50) U/L Alkaline Phosphatase 177 H (40-150) U/L Albumin 4.1 (3.3-5.0) g/dL Urine 05/18/23 Range/Units 09:40 Urine Color Yellow (Yellow) Urine Appearance Slightly Cloudy A (Clear) Urine pH 5.5 (5.0-8.5) Ur Specific [place] 1.020 (1.000-1.030) Urine Protein 3+ A (Negative) Urine Glucose (UA) Trace A (Negative) Assessment and Plan Assessment and plan (1) Acute respiratory failure: Problem comment: I favor heart failure with pulmonary edema as the primary underlying problem. Possible pneumonia and COPD also contributing. Possible aspiration with altered mental status. PE less likely in this clinical scenario. Continued evaluation and management in our hospital CCU Status: Acute (2) Heart failure with reduced ejection fraction: Problem comment: Left ventricular ejection fraction 23% 03/13/2023 [place] Status: Acute (3) Stage 4 chronic kidney disease: Problem comment: Creatinine 4.0 [place]. Baseline creatinine unknown Status: Acute (4) Coronary artery disease: Problem comment: Severe multi-vessel coronary calcifications on chest CT at [facility] February 2023 Status: Acute (5) Non-STEMI (non-ST elevated myocardial infarction): Problem comment: Elevated troponin likely due to acute decompensated heart failure rather than acute coronary obstruction Status: Acute (6) Hypothermia: Problem comment: Active external rewarming. Likely due to exposure at home. Status: Acute (7) Alcohol use disorder: Problem comment: [facility] protocol Status: Acute (8) COPD (chronic obstructive pulmonary disease): Problem comment: Longstanding cigarette smoking Status: Acute (9) Altered mental status: Problem comment: Cause for this is unknown. Acute illness, hypoxia, substance abuse, postictal status are possible considerations. Supportive care. Patient did arouse this afternoon but refuses to talk to me now. Status: Acute Plan 62-year-old male with chronic heart, renal, lung, vascular disease admitted with respiratory failure and altered mental status. Initiate treatment for above conditions to CCU for close monitoring and treatment. Total time spent today is 110 minutes in critical care evaluation and management.
[2023-05-18 13:08] LABS: HCO3 VBG 13 mmol/L (21-28); PCO2 VBG 28 mmHG (40-50); PO2 VBG 39.2 mmHG (25-47); pH VBG 7.261 (7.32-7.43)
[2023-05-18] MEDS: LORazepam 2 MG/ML inj IVP ×4 (13:23→18:49)
[2023-05-18 13:34] LABS: Chloride* 117 mmol/L (96-114); Potassium* 5.2 mmol/L (3.6-5.1); Sodium* 139 mmol/L (135-149)
[2023-05-18 13:36] LABS: Creatine Kinase* 91 U/L (54-186)
[2023-05-18 13:37] LABS: Anion Gap 12 mEq/L (7-15); Blood Urea Nitrogen* 59 mg/dL (7-30); Calcium* 8.2 mg/dL (8.4-10.6); Carbon Dioxide* 10 mmol/L (20-32); Creatinine* 3.8 mg/dL (0.5-1.5); Estimated Glomerular Filt Rate 17 ml/min; Glucose* 75 mg/dL (60-115)
[2023-05-18 13:38] LABS: Phosphorus* 7.9 mg/dL (2.5-4.5)
[2023-05-18] MEDS: 5 % DEXTROSE IN LAC RINGER'S 1,000 ML 75 ML IV (13:38)
[2023-05-18] MEDS: THIAMINE 250 MG in 0.9 % SODIUM CHLORIDE 100 ml 100 ML 102.5 MG IVPB (13:39)
[2023-05-18] MEDS: IPRAT-ALBUT 0.5-2.5 MG/3 ML NEB 1 NEB IH (13:39)
[2023-05-18 13:53] LABS: Troponin I* 1.04 ng/mL (0.01-0.04)
[2023-05-18] MEDS: METOPROLOL TARTRATE 1 MG/ML inj 5 MG IVP ×3 (14:09→19:08)
[2023-05-18] MEDS: NICOTINE 14 mg PATCH 1 PATCH TRANSDERMA (14:20)
[2023-05-18] MEDS: MORPHINE 2 MG/ML inj IVP ×3 (14:41→19:06)
[2023-05-18 14:57] LABS: Procalcitonin* 1.14 ng/mL (<0.50)
[2023-05-18 15:13] LABS: HCO3 VBG 11 mmol/L (21-28); PCO2 VBG 34 mmHG (40-50); PO2 VBG 44.5 mmHG (25-47)
[2023-05-18 15:17] LABS: pH VBG 7.129 (7.32-7.43)
[2023-05-18] MEDS: SODIUM BICARBONATE 50 MEQ/50ML SYRINGE IVP ×3 (16:04→16:14)
[2023-05-18] MEDS: ASPIRIN 300 MG SUPP PR (16:15)
--- NOTE | 2023-05-18 16:16 | PC.NURSE ---
Pt arrived from ED very sleepy and intermittently cooperative with cares. Tolerated Bipap for a couple hours before removing it independently. He has been tolerant of 1L/O2 via Oxymask, SpO2 88-92%, RR=24. Pt frequently uses profanity and declines admission questions. States he is an alcoholic but has not experienced withdrawals. States he is a smoker but declines to state amount used daily. Impulsively moves to use BSC, he was initially continent of loose stools x2. At approx 1400 pt returned from BSC with assist x2 and had an episode of pallor/nunes coloration, diaphoresis, mottling, and unresponsiveness. BP's hypertensive and HR 140's, SpO2 decreased to 80%. Bipap again applied and MD to bedside. EKG and labs drawn/pending. Metroprolol and Morphine given IVP. Srivastava patent. Report given to JOSE LUIS Meneses.
--- NOTE | 2023-05-18 16:19 | PM.DST ---
Transfer Discharge Sum: Prov Provider Date Seen: 05/18/23 Date of admission: 05/18/23 10:05 Primary care physician: Dipak Louis MD Attending physician on admission: Dmitriy Kelly Consults: 05/18/23 09:15 Consult to Respiratory Therapy [CONS] Urgent Comment: Reason(s) for RT Consult:: Consult Attending physician on discharge: Caryn Montgomery Anticipated date of transfer: 05/18/23 Receiving physician/facility: [facility], Dr. Roy DS: Diagnosis Discharge Diagnosis (1) Altered mental status: Status: Acute Problem details: Cause for this is unknown. Acute illness, hypoxia, substance abuse, postictal status are possible considerations. Supportive care. Patient did arouse this afternoon but refused to talk to Then became obtunded again. (2) Acute respiratory failure: Status: Acute Problem details: Favor heart failure with pulmonary edema as the primary underlying problem. Possible pneumonia and COPD also contributing. Possible aspiration with altered mental status. PE less likely in this clinical scenario. Managing patient in our CCU on BiPAP, but he is becoming more acidotic and is obtunded. We do not have capability to vent patient here. I spoke with Dr. Roy from [facility] who accepted this patient in transfer. In discussion with him, plan is to give bicarb through IV then intubate before EMS transfer. (3) Metabolic acidosis: Status: Acute Problem details: Cause is unclear. Suspect renal failure vs alcoholic ketoacidosis. Lactate is wnl. Utox and MONY make ingestion less likely. (4) Stage 4 chronic kidney disease: Status: Acute Problem details: Creatinine 4.0 at [facility] in February, 3.8 here today. Baseline creatinine unknown. (5) Elevated d-dimer: Status: Acute Problem details: PE less likely, but cannot be ruled out due to elevated Cr precludes CT chest for PE and VQ not available this long holiday weekend. (6) Non-STEMI (non-ST elevated myocardial infarction): Status: Acute Problem details: Elevated troponin likely due to acute decompensated heart failure rather than acute coronary obstruction (7) Coronary artery disease: Status: Chronic Problem details: Severe multi-vessel coronary calcifications on chest CT at [facility] February 2023 (8) Hypothermia: Status: Acute Problem details: Active external rewarming. Likely due to exposure at home. (9) Alcohol use disorder: Status: Chronic Problem details: CIWA protocol (10) Smoking: Status: Chronic Problem details: nicotine patch placed. (11) COPD (chronic obstructive pulmonary disease): Status: Acute Problem details: Longstanding cigarette smoking (12) Pulmonary hypertension: Status: Chronic Problem details: RVSP 77 mmHg 03/13/2023 [facility] (13) Right heart failure: Status: Acute (14) Heart failure with reduced ejection fraction: Status: Acute Problem details: - Left ventricular ejection fraction 23% 03/13/2023 [facility], preliminary ECHO today (05/18) shows globally reduced EF. - Acute on chronic (15) Pulmonary edema: Status: Acute Problem details: Has been given several doses of IV lasix. (16) Hyperphosphatemia: Status: Acute (17) Diarrhea: Status: Acute Problem details: Incontinent of stool with AMS. C diff pending, no sample obtained yet. Transfer Discharge Sum: Med Medications Active and Home Medications: Home Medications amlodipine 5 mg tablet 5 mg PO DAILY 05/18/23 [History Confirmed 05/18/23] carvedilol 12.5 mg tablet 12.5 mg PO BID 05/18/23 [History Confirmed 05/18/23] Active Medications Albuterol/Ipratropium (Iprat-Albut 0.5-2.5 Mg/3 Ml Neb) 1 neb IH QID [facility] Last Admin: 05/18/23 13:39 Dose: 1 neb Calcium Acetate (Calcium Acetate 667 Mg Capsule) 667 mg PO TIDWM [facility] Carvedilol (Carvedilol 6.25 Mg Tablet) 6.25 mg PO BID [facility] Enoxaparin Sodium (Enoxaparin 60 Mg/0.6 Ml Inj) 60 mg SUBCUT Q24H [facility] Last Admin: 05/18/23 10:46 Dose: 60 mg Flumazenil (Flumazenil 0.1 Mg/Ml Inj) 0.2 mg IVP Q1M PRN PRN Reason: Respiratory Depression Folic Acid (Folic Acid 1 Mg Tablet) 1 mg PO DAILY [facility] Thiamine HCl 250 mg/ Sodium (Chloride) 102.5 mls @ 102.5 mls/hr IVPB TID [facility] Stop: 05/21/23 09:01 Last Admin: 05/18/23 13:39 Dose: 102.5 mls/hr Piperacillin Sod/Tazobactam (Sod 2.25 gm/ Sodium Chloride) 100 mls @ 200 mls/hr IVPB Q6H [facility] Dextrose/Lactated Ringer's (5 % Dextrose In Lac Ringer's) 1,000 mls @ 75 mls/hr IV .[id number] [facility] Last Admin: 05/18/23 13:38 Dose: 75 mls/hr Phenobarbital 260 mg/ Sodium (Chloride) 104 mls @ 208 mls/hr IVPB ONCE ONE Stop: 05/18/23 17:29 Sodium Bicarbonate 150 meq/ (Dextrose) 1,150 mls @ 150 mls/hr IV .[id number] [facility] Insulin Aspart (Insulin Aspart 100 Unit/Ml) 0 unit SUBCUT ACHS [facility]; Protocol Last Admin: 05/18/23 12:38 Dose: Not Given Lorazepam (Lorazepam 2 Mg/Ml Inj) 1 - 4 mg IVP Q1H PRN; Protocol Last Admin: 05/18/23 13:23 Dose: 2 mg Lorazepam (Lorazepam 1 Mg Tablet) 1 - 4 mg PO Q1H PRN; Protocol Metoprolol Tartrate (Metoprolol Tartrate 1 Mg/Ml Inj) 5 mg IVP Q4H [facility] Last Admin: 05/18/23 14:09 Dose: 5 mg Morphine Sulfate (Morphine 2 Mg/Ml Inj) 2 mg IVP Q1H PRN Last Admin: 05/18/23 14:41 Dose: 2 mg Multivitamins/Minerals (Multivitamin/Minerals 1 Tablet) 1 tab PO DAILY [facility] Nicotine (Nicotine 14 Mg Patch) 1 patch TRANSDERMA Q24H [facility] Last Admin: 05/18/23 14:20 Dose: 1 patch Sodium Bicarbonate (Sodium Bicarbonate 650 Mg Tablet) 650 mg PO TIDWM [facility] Sodium Chloride (Sodium Chloride 0.9 % (Flush) 10 Ml Syringe) 5 ml IVF BID [facility] Transfer Discharge Sum: Hosp Hospital Course Hospital course: From today's H&P by Dr. Kelly: Elvin Reardon is a 62 year old male admitted through the emergency department after being noted by his neighbor to have trouble breathing. 911 was called and EMS transport him to the emergency department EMS found the patient to be frothing at the mouth and tripoding in respiratory distress. He was diaphoretic with O2 sats in the low 80s and hypertensive with blood pressures of 240/100 and pulse in the 160s. Patient was obtained ended and difficult to arouse. Unable to give significant history on initial presentation. Medical records show that he had a similar episode 03/13/2023. He was intubated and transferred to [facility] for ICU care. He was hospitalized there for 6 days. Discharge diagnosis was biventricular systolic heart failure. His ejection fraction was 23%. This was thought to be a dilated cardiomyopathy. He was un known if this was ischemic verses alcohol-related verses mixed cause. He was found to have pulmonary hypertension with a right ventricular pressure of 77 mmHg. He was found to have acute on chronic kidney disease with a creatinine of 4.0. He had severe multi-vessel coronary calcifications on his chest CT. He was thought to have community-acquired pneumonia treated with a Zithromax and ceftriaxone. He had an anion gap metabolic acidosis and hyperphosphatemia. He had dark stools but fecal occult testing was negative for blood. He was referred to follow-up for primary care as well as Nephrology. He was started on guideline directed therapy including carvedilol, low-dose lisinopril. It is unclear whether he filled these prescriptions but appears that he has not been continuing on them and he has not had any outpatient follow-up for his chronic heart disease, kidney disease and vascular disease. Patient was admitted to CCU, given lasix IV, pip/taxo, therapeutic enoxaparin, nicotine patch, metoprolol IV, Aspirin [place], lorazepam and phenobarbetal for suspected EtOH withdrawl and morphine for air hunger/discomfort. Serial EKGs and labs obtained. Despite BiPAP, patient became more acidotic. Appears to be metabolic acidosis. Due to worsening acidosis and obtundation, patient will need to be on vent. I have spoken with Dr. Roy from [facility] who accepted patient in transfer. Time Spent with Patient Time attestation: Total time spent providing and/or coordinating transfer services: 80 minutes of critical care time and transfer. Exam Narrative: Exam Narrative: General: Not responding to verbal stimuli, occasionally suddenly sits up and then flaps back down into bed. He is on BiPAP. Most of the time obtunded. Central cyanosis was present briefly. Diaphoretic. Mottled in the extremities. No jaundice. Cardiovascular: Regular rate and rhythm. No murmurs, gallops, or rubs. Respiratory: Tachypneic. Scattered diffuse expiratory wheezes. Abdomen: Bowel sounds present. Soft, nondistended, nontender. Extremities: No pedal edema. Const: Vital Signs, click to edit/add: Vital Signs - 24 hr 05/18/23 06:00 05/18/23 06:06 05/18/23 06:07 Temperature Pulse Rate Pulse Rate [Pulse Oximeter] 146 H Respiratory Rate 36 H Blood Pressure Blood Pressure [Le ft Arm] Blood Pressure [Le ft Upper Arm] 230/147 H Pulse Oximetry 80 L 94 Oxygen Delivery Me thod Room Air BiPAP Oxygen Flow Rate Fraction of Inspir ed Oxygen 05/18/23 06:11 05/18/23 06:12 05/18/23 06:15 Temperature Pulse Rate 139 H 137 H 140 H Pulse Rate [Pulse Oximeter] Respiratory Rate Blood Pressure 202/130 H Blood Pressure [Le ft Arm] Blood Pressure [Le ft Upper Arm] Pulse Oximetry 95 94 93 Oxygen Delivery Me thod Oxygen Flow Rate Fraction of Inspir ed Oxygen 05/18/23 06:21 05/18/23 06:30 05/18/23 06:42 Temperature Pulse Rate 141 H 141 H 141 H Pulse Rate [Pulse Oximeter] Respiratory Rate Blood Pressure 205/131 H 145/125 H Blood Pressure [Le ft Arm] Blood Pressure [Le ft Upper Arm] Pulse Oximetry 94 94 95 Oxygen Delivery Me thod Oxygen Flow Rate Fraction of Inspir ed Oxygen 05/18/23 06:45 05/18/23 06:51 05/18/23 07:00 Temperature Pulse Rate 144 H 146 H 139 H Pulse Rate [Pulse Oximeter] Respiratory Rate Blood Pressure 132/116 H Blood Pressure [Le ft Arm] Blood Pressure [Le ft Upper Arm] Pulse Oximetry 95 95 93 Oxygen Delivery Me thod Oxygen Flow Rate Fraction of Inspir ed Oxygen 05/18/23 07:01 05/18/23 07:10 05/18/23 07:12 Temperature 95.5 F L Pulse Rate 142 H 132 H Pulse Rate [Pulse Oximeter] 134 H Respiratory Rate 28 H Blood Pressure 130/112 H 134/106 H Blood Pressure [Le ft Arm] Blood Pressure [Le ft Upper Arm] 134/106 H Pulse Oximetry 93 97 93 Oxygen Delivery Me thod BiPAP Oxygen Flow Rate Fraction of Inspir ed Oxygen 05/18/23 07:15 05/18/23 07:20 05/18/23 07:20 Temperature 95.5 F L Pulse Rate 130 H Pulse Rate [Pulse Oximeter] 140 H 124 H Respiratory Rate 28 H 26 H Blood Pressure Blood Pressure [Le ft Arm] Blood Pressure [Le ft Upper Arm] 134/106 H 105/81 Pulse Oximetry 95 92 98 Oxygen Delivery Me thod BiPAP BiPAP Oxygen Flow Rate Fraction of Inspir ed Oxygen 50 50 05/18/23 07:25 05/18/23 07:26 05/18/23 07:30 Temperature Pulse Rate 120 H 119 H 117 H Pulse Rate [Pulse Oximeter] Respiratory Rate Blood Pressure 105/81 106/87 Blood Pressure [Le ft Arm] Blood Pressure [Le ft Upper Arm] Pulse Oximetry 94 93 94 Oxygen Delivery Me thod Oxygen Flow Rate Fraction of Inspir ed Oxygen 05/18/23 07:32 05/18/23 07:41 05/18/23 07:44 Temperature Pulse Rate 118 H 119 H 120 H Pulse Rate [Pulse Oximeter] Respiratory Rate Blood Pressure 100/78 102/88 110/91 H Blood Pressure [Le ft Arm] Blood Pressure [Le ft Upper Arm] Pulse Oximetry 94 96 94 Oxygen Delivery Me thod Oxygen Flow Rate Fraction of Inspir ed Oxygen 05/18/23 07:45 05/18/23 07:51 05/18/23 07:52 Temperature Pulse Rate 118 H 114 H 110 H Pulse Rate [Pulse Oximeter] Respiratory Rate Blood Pressure 106/87 Blood Pressure [Le ft Arm] Blood Pressure [Le ft Upper Arm] Pulse Oximetry 94 96 95 Oxygen Delivery Me thod Oxygen Flow Rate Fraction of Inspir ed Oxygen 05/18/23 08:00 05/18/23 08:01 05/18/23 08:11 Temperature Pulse Rate 109 H 109 H 110 H Pulse Rate [Pulse Oximeter] Respiratory Rate Blood Pressure 105/84 105/82 Blood Pressure [Le ft Arm] Blood Pressure [Le ft Upper Arm] Pulse Oximetry 97 97 96 Oxygen Delivery Me thod Oxygen Flow Rate Fraction of Inspir ed Oxygen 05/18/23 08:15 05/18/23 08:16 05/18/23 08:21 Temperature 95.5 F L Pulse Rate 105 H 108 H Pulse Rate [Pulse Oximeter] 105 H Respiratory Rate 28 H Blood Pressure 111/96 H Blood Pressure [Le ft Arm] Blood Pressure [Le ft Upper Arm] 105/82 Pulse Oximetry 97 97 98 Oxygen Delivery Me thod BiPAP Oxygen Flow Rate Fraction of Inspir ed Oxygen 50 05/18/23 08:30 05/18/23 08:31 05/18/23 08:32 Temperature Pulse Rate 108 H 109 H 116 H Pulse Rate [Pulse Oximeter] Respiratory Rate Blood Pressure 155/97 H Blood Pressure [Le ft Arm] Blood Pressure [Le ft Upper Arm] Pulse Oximetry 95 92 91 Oxygen Delivery Me thod Oxygen Flow Rate Fraction of Inspir ed Oxygen 05/18/23 08:33 05/18/23 08:36 05/18/23 08:41 Temperature Pulse Rate 115 H 119 H 106 H Pulse Rate [Pulse Oximeter] Respiratory Rate Blood Pressure 167/113 H 112/95 H 116/89 Blood Pressure [Le ft Arm] Blood Pressure [Le ft Upper Arm] Pulse Oximetry 90 100 96 Oxygen Delivery Me thod Oxygen Flow Rate Fraction of Inspir ed Oxygen 05/18/23 08:45 05/18/23 08:51 05/18/23 09:00 Temperature 96.0 F L Pulse Rate 108 H 100 Pulse Rate [Pulse Oximeter] 89 Respiratory Rate 30 H Blood Pressure 106/83 Blood Pressure [Le ft Arm] Blood Pressure [Le ft Upper Arm] 116/90 H Pulse Oximetry 94 94 92 Oxygen Delivery Me thod BiPAP Oxygen Flow Rate Fraction of Inspir ed Oxygen 30 05/18/23 09:00 05/18/23 09:01 05/18/23 09:02 Temperature Pulse Rate 102 H 101 H 101 H Pulse Rate [Pulse Oximeter] Respiratory Rate Blood Pressure 116/90 H Blood Pressure [Le ft Arm] Blood Pressure [Le ft Upper Arm] Pulse Oximetry 91 89 90 Oxygen Delivery Me thod Oxygen Flow Rate Fraction of Inspir ed Oxygen 05/18/23 09:07 05/18/23 09:11 05/18/23 09:15 Temperature Pulse Rate 86 84 Pulse Rate [Pulse Oximeter] Respiratory Rate Blood Pressure 92/65 Blood Pressure [Le ft Arm] Blood Pressure [Le ft Upper Arm] Pulse Oximetry 92 90 Oxygen Delivery Me thod Oxygen Flow Rate Fraction of Inspir ed Oxygen 30 05/18/23 09:21 05/18/23 09:24 05/18/23 09:24 Temperature Pulse Rate 84 85 Pulse Rate [Pulse Oximeter] 86 Respiratory Rate 26 H Blood Pressure 89/71 L 85/59 L Blood Pressure [Le ft Arm] Blood Pressure [Le ft Upper Arm] 85/59 L Pulse Oximetry 92 92 91 Oxygen Delivery Me thod BiPAP Oxygen Flow Rate Fraction of Inspir ed Oxygen 30 05/18/23 09:28 05/18/23 09:30 05/18/23 09:31 Temperature Pulse Rate 87 93 85 Pulse Rate [Pulse Oximeter] Respiratory Rate Blood Pressure 94/75 99/74 Blood Pressure [Le ft Arm] Blood Pressure [Le ft Upper Arm] Pulse Oximetry 92 92 91 Oxygen Delivery Me thod Oxygen Flow Rate Fraction of Inspir ed Oxygen 05/18/23 09:38 05/18/23 09:42 05/18/23 10:18 Temperature 96.0 F L Pulse Rate 87 89 Pulse Rate [Pulse Oximeter] 90 Respiratory Rate 26 H Blood Pressure 107/81 91/69 Blood Pressure [Le ft Arm] Blood Pressure [Le ft Upper Arm] 98/70 Pulse Oximetry 92 91 Oxygen Delivery Me thod Oxygen Flow Rate Fraction of Inspir ed Oxygen 05/18/23 10:45 05/18/23 11:37 05/18/23 11:40 Temperature 96.4 F L 98.3 F Pulse Rate Pulse Rate [Pulse Oximeter] 81 Respiratory Rate 26 H 24 Blood Pressure Blood Pressure [Le ft Arm] 137/94 H 120/76 Blood Pressure [Le ft Upper Arm] Pulse Oximetry 91 90 90 Oxygen Delivery Me thod BiPAP OxyMask Oxygen Flow Rate 1 Fraction of Inspir ed Oxygen 30 05/18/23 11:40 05/18/23 12:53 05/18/23 13:15 Temperature 98.3 F 98.2 F 98.2 F Pulse Rate Pulse Rate [Pulse Oximeter] 81 91 91 Respiratory Rate 24 24 24 Blood Pressure Blood Pressure [Le ft Arm] 120/76 164/105 H 164/105 H Blood Pressure [Le ft Upper Arm] Pulse Oximetry 90 89 89 Oxygen Delivery Me thod OxyMask OxyMask OxyMask Oxygen Flow Rate 1 1 1 Fraction of Inspir ed Oxygen 05/18/23 14:00 05/18/23 15:15 05/18/23 15:33 Temperature 98.2 F 97.4 F L Pulse Rate Pulse Rate [Pulse Oximeter] 104 H 78 Respiratory Rate 24 24 Blood Pressure Blood Pressure [Le ft Arm] 125/87 124/97 H 131/90 H Blood Pressure [Le ft Upper Arm] Pulse Oximetry 89 96 Oxygen Delivery Me thod BiPAP BiPAP Oxygen Flow Rate 1 Fraction of Inspir ed Oxygen 25 Transfer Discharge Sum: Data Data Completed and Pending Completed studies during hospitalization: 05/18/2023 6:06 a.m. EKG: Sinus tachycardia, 135 beats per minute, possible left atrial enlargement, T-wave abnormality, consider lateral ischemia. 05/18/2023 2:39 p.m. EKG: Sinus tachycardia, 101 beats per minute, left ventricular hypertrophy with repolarization abnormality. Ordering Physician: Martinez Florez M.D. Date of Service: 05/18/23 Procedure(s): XR chest 1V portable Accession Number(s): [id number] cc: Dipak Louis M.D.; Martinez Florez M.D.~ For Patients: As a result of the Cures Act, medical imaging exams and procedure reports are released immediately into your electronic medical record. You may view this report before your referring provider. If you have questions, please contact your health care provider. INDICATION: Acute dyspnea COMPARISON: None TECHNIQUE: Single-view study May 18, 2023 at 6:36 a.m. FINDINGS: TUBES AND LINES: None. HEART AND MEDIASTINUM: The heart size is normal. The mediastinal contour appears normal for patient age. LUNGS AND PLEURAL SPACES: Diffuse airspace opacities bilaterally. This is moderate to severe. Primary differential considerations are pulmonary edema versus a diffuse inflammatory process.No pleural effusion or pneumothorax OSSEOUS STRUCTURES: Age-appropriate appearance. No acute focal finding. IMPRESSION: Diffuse airspace opacities bilaterally, moderate to severe. Primary differential considerations are pulmonary edema versus a diffuse inflammatory process. Dictated by Osmani Malloy MD @ 05/18/2023 7:25:25 AM (Electronically Signed) Ordering Physician: Dmitriy Kelly M.D. Date of Service: 05/18/23 Procedure(s): CT head/brain wo con Accession Number(s): [id number] cc: Dipak Louis M.D.; Dmitriy Kelly M.D.~ For Patients: As a result of the Cures Act, medical imaging exams and procedure reports are released immediately into your electronic medical record. You may view this report before your referring provider. If you have questions, please contact your health care provider. INDICATION: Altered mental status. TECHNIQUE: Multiple axial images were obtained through the brain without contrast. Sagittal and coronal re-formatted images were obtained. COMPARISON: None. FINDINGS: The ventricles sulci are prominent. There is no mass effect or midline shift. There is no intracranial hemorrhage. There is decreased attenuation in the periventricular white matter consistent with small vessel ischemic disease. There is no skull fracture seen. IMPRESSION: No acute intracranial abnormality. Please note that all CT scans at this facility use dose modulation, iterative reconstruction, and/or weight-based dosing when appropriate to reduce radiation dose to as low as reasonably achievable. Dictated by Dmitriy Valencia MD @ 05/18/2023 10:14:15 AM (Electronically Signed) Transfer Discharge Sum: A/P Plan Overall status at transfer: patient is not back to baseline Discharge Plan Discharge Disposition: [facility] Discharge Location: [facility] Date of Admission: 05/18/23 10:05 Attending Provider on Discharge: Caryn Montgomery Primary Care Provider: Dipak Louis Condition: Improved Discharge Orders: Transfer of Care to Other Hospital (ORDER); Ordered 05/18/23 Ordered By: Caryn Montgomery Oxygen Delivery Method: Vent Urinary Catheter: Yes Drips/Lines: D5 with sodium bicarb @ 100 cc/hr. Run D5 LR @ 75cc/hr when that is finished.
[2023-05-18 16:46] LABS: C.Difficile Negative (Negative); CDIFFEPI 027 PRESUMPTIVE NEGATIVE (Negative)
[2023-05-18 17:03] LABS: HCO3 VBG 22 mmol/L (21-28); PCO2 VBG 48 mmHG (40-50); PO2 VBG 21.4 mmHG (25-47); pH VBG 7.278 (7.32-7.43)
[2023-05-18] MEDS: PIPERACILLIN/TAZOBACTAM 2.25 GM in 0.9 % SODIUM CHLORIDE Mini-bag 100 ML IVPB (17:11)
--- NOTE | 2023-05-18 19:48 | CRLHL7_ITS ---
For Patients: As a result of the Century Cures Act, medical imaging exams and procedure reports are released immediately into your electronic medical record. You may view this report before your referring provider. If you have questions, please contact your health care provider. INDICATION: Intubation. TECHNIQUE: Portable AP chest. FINDINGS: ET tube below the thoracic inlet and 5-6 cm above the abiodun. Diffuse bilateral pulmonary opacities. Dictated by Maruice Cuevas MD @ 05/18/2023 9:03:50 PM (Electronically Signed)
--- NOTE | 2023-05-18 20:31 | P.ANBPRC_ITS ---
[facility] Medical History (Updated 05/18/23 @ 17:10 by Caryn Montgomery MD) Altered mental status ?R41.82 - Altered mental status, unspecified (ICD-10) Non-STEMI (non-ST elevated myocardial infarction) ?I21.4 - Non-ST elevation (NSTEMI) myocardial infarction (ICD-10) Smoking ?F17.200 - Nicotine dependence, unspecified, uncomplicated (ICD-10) Alcohol use disorder ?F10.90 - Alcohol use, unspecified, uncomplicated (ICD-10) COPD (chronic obstructive pulmonary disease) ?J44.9 - Chronic obstructive pulmonary disease, unspecified (ICD-10) Coronary artery disease ?I25.10 - Atherosclerotic heart disease of [place] coronary artery without angina pectoris (ICD-10) Stage 4 chronic kidney disease ?N18.4 - Chronic kidney disease, stage 4 (severe) (ICD-10) Pulmonary hypertension ?I27.20 - Pulmonary hypertension, unspecified (ICD-10) Right heart failure ?I50.810 - Right heart failure, unspecified (ICD-10) Heart failure with reduced ejection fraction ?I50.20 - Unspecified systolic (congestive) heart failure (ICD-10) Social History (Updated 05/18/23 @ 13:07 by Dmitriy Kelly MD) Narrative: Patient apparently lives in an apartment in [place]. Smokes a pack of cigarettes a day. He has a history of alcohol abuse but current con sumption is unknown. Unable to discuss plan of care or goals of care What is your current living situation?: unable to answer Problems where you live: unable to answer Problems where you live details: unknown In the past 12 months, utilities in danger of being shut off: unable to answer In past 12 months, lack of transportation kept you from medical appts, meetings, work, or getting things needed for daily living: unable to answer In the past 12 mos, have been you worried that your food would run out before you had money to buy more?: unable to answer In the past 12 mos, the food you bought just didn't last and you didn't have money to buy more?: unable to answer Highest level of school completed/degree received: don't know Smoking Status: Current every day smoker Second hand tobacco smoke exposure: Yes How often do you have a drink containing alcohol: 4 or more times a week AUDIT-C Alcohol total score: 4 Non-prescribed substance use details: unknown How often does anyone, including family, friends and others, physically hurt you : unable to answer How often does anyone, including family, friends and others, insult or talk down to you: unable to answer How often does anyone, including family, friends and others, threaten you with harm: unable to answer How often does anyone, including family, friends and others, scream or curse at you: unable to answer service: No Meds Home Medications and Allergies Home Medications Medication Instructions Recorded Confirmed Type amlodipine 5 mg tablet 5 mg PO DAILY 05/18/23 05/18/23 History carvedilol 12.5 mg tablet 12.5 mg PO BID 05/18/23 05/18/23 History Allergies Allergy/AdvReac Type Severity Reaction Status Date / Time ranitidine AdvReac itch Verified 02/23/23 23:17 Results Labs Labs: Laboratory Results - last 24 hr 05/18/23 05/18/23 05/18/23 06:04 06:20 07:15 WBC 13.69 H RBC 3.44 L Hgb 11.0 L Hct 34.9 L MCV 102 H MCH 32 MCHC 32 RDW Coeff of Martir 14.7 Plt Count 341 Neut % (Auto) 61.6 Lymph % (Auto) 30.3 [place] % (Auto) 4.5 Eos % (Auto) 2.3 Baso % (Auto) 0.4 Neut # (Auto) 8.40 H Lymph # (Auto) 4.10 H [place] # (Auto) 0.60 Eos # (Auto) 0.30 Baso # (Auto) 0.10 Abs Immat Gran (auto) 0.10 Imm/Tot Granulo (auto) 0.9 INR 1.00 APTT 28 D-Dimer Quant (PE/DVT) 4.18 H VBG pH 7.077 L* VBG pCO2 40 VBG pO2 87.8 H VBG HCO3 12 L Sodium 139 Potassium 4.6 Chloride 114 Carbon Dioxide 10 L Anion Gap 15 BUN 56 H Creatinine 3.7 H Estimated GFR 18 Glucose 222 H Hemoglobin A1c 4.8 Lactate 1.6 Calcium 8.9 Phosphorus 7.9 H* Magnesium 1.8 Total Bilirubin 0.3 Direct Bilirubin 0.0 AST 22 ALT 17 Alkaline Phosphatase 177 H Total Creatine Kinase 91 Troponin I 0.05 H C-Reactive Protein 0.6 NT-Pro-B Natriuret Pep 69059 Total Protein 7.3 Albumin 4.1 Procalcitonin TSH 1.260 Urine Color Urine Appearance Urine pH Ur Specific [place] Urine Protein Urine Glucose (UA) Urine Ketones Urine Blood Urine Nitrite Urine Bilirubin Urine Urobilinogen Ur Leukocyte Esterase Urine RBC Urine WBC Ur Squamous Epith Cells Urine Bacteria Urine L. pneumophilia Ag Urine Strep pneumoniae Ag Stl C. diff Tox B Gene Stl C. diff [id number]-[id number] Urine Opiates Screen Ur Oxycodone Screen Urine Methadone Screen Ur Propoxyphene Screen Ur Barbiturates Screen U Tricyclic Antidepress Ur Phencyclidine Scrn Ur Amphetamines Screen U Methamphetamines Scrn U Benzodiazepines Scrn Urine Cocaine Screen U Marijuana (THC) Screen Ur Drug Screen Comment Ethyl Alcohol < 0.01 L SARS-CoV-2 (PCR) Negative SARS-CoV-2 Influenza Type A (PCR) Negative PCR FLU A Influenza Type B (PCR) Negative PCR FLU B RSV (PCR) Negative PCR RSV Lab Acknowledgement POC Troponin I 0.06 H 05/18/23 05/18/23 05/18/23 07:46 08:03 09:40 WBC RBC Hgb Hct MCV MCH MCHC RDW Coeff of Martir Plt Count Neut % (Auto) Lymph % (Auto) [place] % (Auto) Eos % (Auto) Baso % (Auto) Neut # (Auto) Lymph # (Auto) [place] # (Auto) Eos # (Auto) Baso # (Auto) Abs Immat Gran (auto) Imm/Tot Granulo (auto) INR APTT D-Dimer Quant (PE/DVT) VBG pH 7.256 L VBG pCO2 28 L VBG pO2 57.1 H VBG HCO3 13 L Sodium Potassium Chloride Carbon Dioxide Anion Gap BUN Creatinine Estimated GFR Glucose Hemoglobin A1c Lactate Calcium Phosphorus Magnesium Total Bilirubin Direct Bilirubin AST ALT Alkaline Phosphatase Total Creatine Kinase Troponin I C-Reactive Protein NT-Pro-B Natriuret Pep Total Protein Albumin Procalcitonin TSH Urine Color Yellow Urine Appearance Slightly Cloudy A Urine pH 5.5 Ur Specific [place] 1.020 Urine Protein 3+ A Urine Glucose (UA) Trace A Urine Ketones Negative Urine Blood Trace-intact A Urine Nitrite Negative Urine Bilirubin Negative Urine Urobilinogen 0.2 Ur Leukocyte Esterase Negative Urine RBC 2-5 A Urine WBC 10-25 A Ur Squamous Epith Cells Few Urine Bacteria Few A Urine L. pneumophilia Ag L. pneumo Negative Urine Strep pneumoniae Ag S. pneumo Negative Stl C. diff Tox B Gene Stl C. diff [id number] Urine Opiates Screen Negative Ur Oxycodone Screen Negative Urine Methadone Screen Negative Ur Propoxyphene Screen Not Reportable Ur Barbiturates Screen Negative U Tricyclic Antidepress Negative Ur Phencyclidine Scrn Negative Ur Amphetamines Screen Negative U Methamphetamines Scrn Negative U Benzodiazepines Scrn Negative Urine Cocaine Screen Negative U Marijuana (THC) Screen POSITIVE A Ur Drug Screen Comment See Note Ethyl Alcohol SARS-CoV-2 (PCR) Influenza Type A (PCR) Influenza Type B (PCR) RSV (PCR) Lab Acknowledgement POC Troponin I 0.12 H 05/18/23 05/18/23 05/18/23 10:43 13:03 13:13 WBC RBC Hgb Hct MCV MCH MCHC RDW Coeff of Martir Plt Count Neut % (Auto) Lymph % (Auto) [place] % (Auto) Eos % (Auto) Baso % (Auto) Neut # (Auto) Lymph # (Auto) [place] # (Auto) Eos # (Auto) Baso # (Auto) Abs Immat Gran (auto) Imm/Tot Granulo (auto) INR APTT D-Dimer Quant (PE/DVT) VBG pH 7.261 L VBG pCO2 28 L VBG pO2 39.2 VBG HCO3 13 L Sodium 139 Potassium 5.2 H Chloride 117 H Carbon Dioxide 10 L Anion Gap 12 BUN 59 H Creatinine 3.8 H Estimated GFR 17 Glucose 75 Hemoglobin A1c Lactate Calcium 8.2 L Phosphorus Magnesium Total Bilirubin Direct Bilirubin AST ALT Alkaline Phosphatase Total Creatine Kinase Troponin I 1.04 H* C-Reactive Protein NT-Pro-B Natriuret Pep Total Protein Albumin Procalcitonin 1.14 H TSH Urine Color Urine Appearance Urine pH Ur Specific [place] Urine Protein Urine Glucose (UA) Urine Ketones Urine Blood Urine Nitrite Urine Bilirubin Urine Urobilinogen Ur Leukocyte Esterase Urine RBC Urine WBC Ur Squamous Epith Cells Urine Bacteria Urine L. pneumophilia Ag Urine Strep pneumoniae Ag Stl C. diff Tox B Gene Stl C. diff [id number] Urine Opiates Screen Ur Oxycodone Screen Urine Methadone Screen Ur Propoxyphene Screen Ur Barbiturates Screen U Tricyclic Antidepress Ur Phencyclidine Scrn Ur Amphetamines Screen U Methamphetamines Scrn U Benzodiazepines Scrn Urine Cocaine Screen U Marijuana (THC) Screen Ur Drug Screen Comment Ethyl Alcohol SARS-CoV-2 (PCR) Influenza Type A (PCR) Influenza Type B (PCR) RSV (PCR) Lab Acknowledgement Test Added Test Added POC Troponin I 05/18/23 05/18/23 05/18/23 13:17 15:10 15:30 WBC RBC Hgb Hct MCV MCH MCHC RDW Coeff of Martir Plt Count Neut % (Auto) Lymph % (Auto) [place] % (Auto) Eos % (Auto) Baso % (Auto) Neut # (Auto) Lymph # (Auto) [place] # (Auto) Eos # (Auto) Baso # (Auto) Abs Immat Gran (auto) Imm/Tot Granulo (auto) INR APTT D-Dimer Quant (PE/DVT) VBG pH 7.129 L* VBG pCO2 34 L VBG pO2 44.5 VBG HCO3 11 L Sodium Potassium Chloride Carbon Dioxide Anion Gap BUN Creatinine Estimated GFR Glucose Hemoglobin A1c Lactate Calcium Phosphorus Magnesium Total Bilirubin Direct Bilirubin AST ALT Alkaline Phosphatase Total Creatine Kinase Troponin I 1.10 H* C-Reactive Protein NT-Pro-B Natriuret Pep Total Protein Albumin Procalcitonin TSH Urine Color Urine Appearance Urine pH Ur Specific [place] Urine Protein Urine Glucose (UA) Urine Ketones Urine Blood Urine Nitrite Urine Bilirubin Urine Urobilinogen Ur Leukocyte Esterase Urine RBC Urine WBC Ur Squamous Epith Cells Urine Bacteria Urine L. pneumophilia Ag Urine Strep pneumoniae Ag Stl C. diff Tox B Gene Negative Stl C. diff [id number] PRESUMPTIVE NEGATIVE Urine Opiates Screen Ur Oxycodone Screen Urine Methadone Screen Ur Propoxyphene Screen Ur Barbiturates Screen U Tricyclic Antidepress Ur Phencyclidine Scrn Ur Amphetamines Screen U Methamphetamines Scrn U Benzodiazepines Scrn Urine Cocaine Screen U Marijuana (THC) Screen Ur Drug Screen Comment Ethyl Alcohol SARS-CoV-2 (PCR) Influenza Type A (PCR) Influenza Type B (PCR) RSV (PCR) Lab Acknowledgement Test Added POC Troponin I 05/18/23 17:00 WBC RBC Hgb Hct MCV MCH MCHC RDW Coeff of Martir Plt Count Neut % (Auto) Lymph % (Auto) [place] % (Auto) Eos % (Auto) Baso % (Auto) Neut # (Auto) Lymph # (Auto) [place] # (Auto) Eos # (Auto) Baso # (Auto) Abs Immat Gran (auto) Imm/Tot Granulo (auto) INR APTT D-Dimer Quant (PE/DVT) VBG pH 7.278 L VBG pCO2 48 VBG pO2 21.4 L VBG HCO3 22 Sodium Potassium Chloride Carbon Dioxide Anion Gap BUN Creatinine Estimated GFR Glucose Hemoglobin A1c Lactate Calcium Phosphorus Magnesium Total Bilirubin Direct Bilirubin AST ALT Alkaline Phosphatase Total Creatine Kinase Troponin I C-Reactive Protein NT-Pro-B Natriuret Pep Total Protein Albumin Procalcitonin TSH Urine Color Urine Appearance Urine pH Ur Specific [place] Urine Protein Urine Glucose (UA) Urine Ketones Urine Blood Urine Nitrite Urine Bilirubin Urine Urobilinogen Ur Leukocyte Esterase Urine RBC Urine WBC Ur Squamous Epith Cells Urine Bacteria Urine L. pneumophilia Ag Urine Strep pneumoniae Ag Stl C. diff Tox B Gene Stl C. diff [id number] Urine Opiates Screen Ur Oxycodone Screen Urine Methadone Screen Ur Propoxyphene Screen Ur Barbiturates Screen U Tricyclic Antidepress Ur Phencyclidine Scrn Ur Amphetamines Screen U Methamphetamines Scrn U Benzodiazepines Scrn Urine Cocaine Screen U Marijuana (THC) Screen Ur Drug Screen Comment Ethyl Alcohol SARS-CoV-2 (PCR) Influenza Type A (PCR) Influenza Type B (PCR) RSV (PCR) Lab Acknowledgement POC Troponin I Vital Signs Vital Signs: Last Vital Signs Temp 97.4 F L 05/18/23 15:33 Pulse 79 05/18/23 18:09 Resp 20 05/18/23 18:09 BP 162/95 H 05/18/23 18:09 Pulse Ox 89 05/18/23 18:09 O2 Del Method BiPAP 05/18/23 18:09 O2 Flow Rate 1 05/18/23 14:00 FiO2 30 05/18/23 18:09 Weight: 56.359 kg Anesthesia Procedures Airway Patient Location: MedSurg/CCU Urgency: emergent Date: 05/18/23 Time: 19:30 TRANSMITTER TESTER: Jackie Performed by: PAULA Preanesthetic Checklist: IV checked and monitors and equipment checked Difficult Airway: No Indications for Airway Management: respiratory failure Spontaneous Ventilation: present Sedation Level: deep Preoxygenated: Yes MILS Maintained Throughout: Yes Mask Difficulty Assessment: 0 - not attempted Planned Trial Extubation: No Final Airway Details: GlideScope 3; chords open and clear; ETT at 23 cm at the teeth, bilateral breath sounds and +ETCO2. Final Airway Type: endotracheal airway Number of Attempts at Approach: 1 Dentition Unchanged: Yes
--- NOTE | 2023-05-18 20:33 | W.ANESCHARGE ---
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
--- NOTE | 2023-05-18 21:02 | PC.NURSE ---
Shift Summary: Patient with increased agitation this shift, cursing at staff, frequently trying to take out IV/lawrence cath/ dispensing and measuring optician/bipap, difficult to redirect. Had x1 episode vasovagal on BSC at start of shift, per MD use bed jeong. Patient noted to be sweaty, tremors in arms, and RR increased during episodes of increased agitation, required ativan per [employer] protocol. HR and BP increased this evening, improvement with scheduled metoprolol. O2 sat 88-91% on BiPAP. Due to impulsiveness, agitation, and decline in health patient required 1:1 with RN. Event: Patient requiring intubation prior to transfer to [place], nurse to nurse given to JOSE LUIS Colindres. Tess Wong CRNA, chargeback specialist, housekeeping coordinator, and leader writer present in room @1919. All medications pushed by PAULA. 60mg lidocaine @ 1924, 180mg propofol @ 1925, 80mg Succinylcholine @ 1926. Intubation achieved @ 1928, tube measuring 23 at the teeth. NS started 999cc/hr @ 1936. Imaging called @ 1936 to verify placement. Propofol started 75mcg/hg/min @ 0742. Third IV placed by PAULA in right wrist. Patient required deep suction @ 1942. Xray done and placement verified by MD. Propofol decreased to 50mcg/kg/min @ 2001. Patient transferred to EMS ventilator @ . EMS administered versed and fentanyl @ 2011. Saline stopped and d5 with sodium bicarb started @ 2022. Patient discharged from floor via EMS to [place] @ 2028.
== END 2023-05-18 20:29 | disposition short-term general hospital (02) | DRG 208 ==
LOC: ED 08:33 → MEDSURG 10:23
PROVIDERS: Family Medicine; Admitting Provider Family Medicine; Emergency Provider Family Medicine; PCP Family Medicine; Visit Provider Family Medicine
DX: J96.01 Acute respiratory failure with hypoxia (principal); I21.4 Non-ST elevation (NSTEMI) myocardial infarction; J81.0 Acute pulmonary edema; I50.23 Acute on chronic systolic (congestive) heart failure; I13.0 Hypertensive heart and chronic kidney disease with heart failure and stage 1 through stage 4 chronic kidney disease, or unspecified chronic kidney disease; N18.4 Chronic kidney disease, stage 4 (severe); E87.21 Acute metabolic acidosis; Z72.0 Tobacco use; R41.82 Altered mental status, unspecified; F10.90 Alcohol use, unspecified, uncomplicated; I25.10 Atherosclerotic heart disease of native coronary artery without angina pectoris; I50.810 Right heart failure, unspecified; J44.9 Chronic obstructive pulmonary disease, unspecified; I27.20 Pulmonary hypertension, unspecified; T68.XXXA Hypothermia, initial encounter; X31.XXXA Exposure to excessive natural cold, initial encounter; R79.1 Abnormal coagulation profile; E83.39 Other disorders of phosphorus metabolism; R19.7 Diarrhea, unspecified
CPT/HCPCS: 31500; 36415; 70450; 71045; 80048; 80076; 80306; 81003; 81015; 82077; 82550; 82803; 82962; 83036; 83605; 83735; 83880; 84100; 84145; 84443; 84484; 85025; 85379; 85610; 85730; 86140; 87040; 87081; 87086; 87449; 87493; 87631; 87899; 93005; 93306; 94640; 94660; 94761; 99140; 99284; 99291; 99292; A9270; J0330; J0456; J1650; J1940; J2060; J2270; J2543; J2560; J2704; J3370; J3411; J7050; J7070; J7120; S4990

== ENCOUNTER 2023-05-18 19:50 | Outpatient (CLI) | payer MEDICAID, SELFPAY | END 2023-05-18 19:51 | disposition home or self-care (01) | LOC: AMB 06-11 17:19 | PROVIDERS: PCP Family Medicine; Visit Provider Family Medicine | DX: R41.82 Altered mental status, unspecified (principal) | CPT/HCPCS: A0425; A0434 ==

== ENCOUNTER 2024-04-25 07:44 | Outpatient (CLI) | payer MEDICAID, SELFPAY | END 2024-04-25 07:45 | disposition home or self-care (01) | LOC: AMB 04-26 02:47 | PROVIDERS: PCP Family Medicine; Visit Provider Family Medicine | DX: R06.09 Other forms of dyspnea (principal) | CPT/HCPCS: A0425; A0427 ==

== ENCOUNTER 2024-04-25 08:00 | Emergency (ER) | payer MEDICAID, SELFPAY ==
[2024-04-25] VITALS (50 sets, daily range): BP systolic 159–226; BP diastolic 104–155; PULSE 99–147; RESP 18–25; TEMP 36.2–36.7; O2SAT 91–100; BMI 24.1
--- NOTE | 2024-04-25 08:13 | CRLHL7_ITS ---
For Patients: As a result of the Century Cures Act, medical imaging exams and procedure reports are released immediately into your electronic medical record. You may view this report before your referring provider. If you have questions, please contact your health care provider. Indication: : Shortness of breath TECHNIQUE: Single-view chest. FINDINGS: Enlarged cardiac silhouette diffuse interstitial opacities could represent pulmonary edema and/or fibrosis. Multiple old right-sided rib fractures no large effusion. Basilar atelectasis no pneumothorax. Dictated by Loan Jimenez MD @ 04/25/2024 8:41:44 AM (Electronically Signed)
[2024-04-25 08:29] LABS: HCO3 VBG 13 mmol/L (21-28); PCO2 VBG 45 mmHG (40-50); PO2 VBG 46.8 mmHG (25-47)
[2024-04-25 08:30] LABS: Lactate* 4.1 mmol/L (0.5-1.9)
[2024-04-25 08:31] LABS: pH VBG 7.062 (7.32-7.43)
[2024-04-25] MEDS: FUROSEMIDE 10 MG/ML inj 20 MG IVP (08:34)
[2024-04-25 08:37] LABS: Eosinophils Percent Auto 6.1 % (0.0-7.0); Hematocrit 31.1 % (37.0-53.0); Hemoglobin* 9.6 gm/dL (13.5-17.5); Immature Granulocytes Pct Auto 0.3 %; Lymphocytes Percent Auto 47.2 % (20-44); Mean Corpuscular HGB Conc 31 gm/dL (32-36); Mean Corpuscular Hemoglobin 33 pg (26-34); Mean Corpuscular Volume 107 fL (80-100); Monocytes Percent Auto 5.5 % (0.0-11.0); Neutrophils Percent Auto 39.9 % (42.0-72.0); Platelet Count* 278 K/uL (140-440); RDW Coefficient of Variation % 14.1 % (11.5-15.5); Red Blood Count 2.91 m/uL (4.30-5.90); White Blood Count* 12.85 K/uL (4.50-11.00)
[2024-04-25 08:43] LABS: Chloride* 114 mmol/L (96-114)
[2024-04-25 08:44] LABS: Albumin* 3.9 g/dL (3.3-5.0); Sodium* 141 mmol/L (135-149)
[2024-04-25 08:45] LABS: Potassium* 4.7 mmol/L (3.6-5.1)
[2024-04-25 08:45] LABS: Troponin, Point-of-Care* 0.08 ng/ml (0.01-0.04)
[2024-04-25 08:46] LABS: Creatinine* 6.6 mg/dL (0.5-1.5); Est. Creatinine Clearance* 9.97; Estimated Glomerular Filt Rate 9 ml/min
[2024-04-25 08:47] LABS: Alkaline Phosphatase* 95 U/L (40-150); Anion Gap 17 mEq/L (7-15); Aspartate Amino Transferase* 21 U/L (12-35); Bilirubin Direct* 0.2 mg/dL (0.0-0.5); Bilirubin Total* 0.2 mg/dL (0.1-1.5); Carbon Dioxide* 10 mmol/L (20-32); Total Protein* 6.6 g/dL (6.0-8.3)
[2024-04-25 08:48] LABS: Alanine Aminotransferase* 13 U/L (4-50); Blood Urea Nitrogen* 62 mg/dL (7-30); Calcium* 8.2 mg/dL (8.4-10.6); Glucose* 242 mg/dL (60-115)
[2024-04-25 08:54] LABS: Acetaminophen* < 10.0 ug/mL (10.0-30.0); C Reactive Protein* < 0.5 mg/dL (0.5-1.0); Ethanol* < 0.01 % (0.01-0.03); Slide Review Reflex Yes
[2024-04-25 09:04] LABS: Magnesium* 2.1 mg/dL (1.5-2.6); Procalcitonin* 8.78 ng/mL (<0.50)
[2024-04-25] MEDS: SODIUM BICARBONATE 50 MEQ/50ML SYRINGE IVP (09:04)
[2024-04-25 09:05] LABS: NT Pro B Type NatriureticPept* 25600 pg/mL; Troponin I* 0.06 ng/mL (0.01-0.04)
[2024-04-25] MEDS: 0.9 % SODIUM CHLORIDE 500 ML 500 ML IV (09:07)
[2024-04-25 09:11] LABS: Slide Review Acceptable Review (Acceptable)
[2024-04-25 09:17] LABS: PCR FLU A Negative PCR FLU A (Negative); PCR FLU B Negative PCR FLU B (Negative); PCR RSV Negative PCR RSV (Negative); SARS PCR* Negative SARS-CoV-2 (Negative)
--- NOTE | 2024-04-25 09:23 | ED.GENADULT ---
HPI - General Adult General Chief complaint: Shortness of Breath/Dyspnea Stated complaint: Respiratory distress Time Seen by Provider: 04/25/24 08:06 Source: patient Mode of arrival: EMS Limitations: no limitations History of Present Illness HPI narrative: 63-year-old male, very poor historian, presents with acute respiratory distress. Patient states that he woke up feeling like he could not breathe. Patient is not very forthcoming with any information. He does state that he continues to smoke and drink alcohol. Unclear how much. Patient presented to the ER about 1 year ago with a very similar presentation required intubation at that time. Past medical history consists of coronary artery disease, stage 4 kidney disease, pulmonary hypertension, heart failure, history of pulmonary edema. Related Data Home Medications ?Medication ?Instructions ?Recorded ?Confirmed amlodipine 5 mg tablet 5 mg PO DAILY 05/18/23 05/18/23 carvedilol 12.5 mg tablet 12.5 mg PO BID 05/18/23 05/18/23 Allergies Allergy/AdvReac Type Severity Reaction Status Date / Time ranitidine AdvReac itch Verified 02/23/23 23:17 Review of Systems Status of ROS: Reports: unobtainable due to medical condition [facility] Medical History Altered mental status ?R41.82 - Altered mental status, unspecified (ICD-10) Non-STEMI (non-ST elevated myocardial infarction) ?I21.4 - Non-ST elevation (NSTEMI) myocardial infarction (ICD-10) Smoking ?F17.200 - Nicotine dependence, unspecified, uncomplicated (ICD-10) Alcohol use disorder ?F10.90 - Alcohol use, unspecified, uncomplicated (ICD-10) COPD (chronic obstructive pulmonary disease) ?J44.9 - Chronic obstructive pulmonary disease, unspecified (ICD-10) Coronary artery disease ?I25.10 - Atherosclerotic heart disease of [place] coronary artery without angina pectoris (ICD-10) Stage 4 chronic kidney disease ?N18.4 - Chronic kidney disease, stage 4 (severe) (ICD-10) Pulmonary hypertension ?I27.20 - Pulmonary hypertension, unspecified (ICD-10) Right heart failure ?I50.810 - Right heart failure, unspecified (ICD-10) Heart failure with reduced ejection fraction ?I50.20 - Unspecified systolic (congestive) heart failure (ICD-10) Social History Narrative: Patient apparently lives in an apartment in [place]. Smokes a pack of cigarettes a day. He has a history of alcohol abuse but current consumption is unknown. Unable to discuss plan of care or goals of care What is your current living situation?: unable to answer Problems where you live: unable to answer Problems where you live details: unknown In the past 12 months, utilities in danger of being shut off: unable to answer In the past 12 mos, have been you worried that your food would run out before you had money to buy more?: unable to answer In the past 12 mos, the food you bought just didn't last and you didn't have money to buy more?: unable to answer Highest level of school completed/degree received: don't know Smoking Status: Current every day smoker Do you use any of these nicotine containing products: None Second hand tobacco smoke exposure: Yes How often do you have a drink containing alcohol: 4 or more times a week AUDIT-C Alcohol total score: 4 Non-prescribed substance use details: unknown How often does anyone, including family, friends and others, physically hurt you: unable to answer How often does anyone, including family, friends and others, insult or talk down to you: unable to answer How often does anyone, including family, friends and others, threaten you with harm: unable to answer How often does anyone, including family, friends and others, scream or curse at you: unable to answer service: No Exam Narrative: Exam Narrative: Frail, small patient in acute respiratory distress. Patient already on BiPAP by the time I go see him. Answers questions with yes or no. HEENT: Normocephalic atraumatic. Pupils are equally round reactive to light. Extraocular muscles are intact. Cardiovascular: Tachycardic. Lungs: Decreased breath sounds bilaterally. Abdomen: Soft and nontender nondistended with normal bowel sounds. Extremities: Bilateral lower extremities are without edema. Skin: Well perfused without any obvious rashes. Const: Vital Signs, click to edit/add: Vital Signs - 24 hr 04/25/24 08:06 04/25/24 08:16 04/25/24 08:19 Temperature 97.1 F L Pulse Rate 146 H Pulse Rate [Right Pulse Oximeter] 142 H Respiratory Rate 18 Blood Pressure 215/146 H Blood Pressure [Ri ght Upper Arm] 226/155 H Pulse Oximetry 100 92 96 Oxygen Delivery Me thod BiPAP BiPAP Oxygen Flow Rate 40 Fraction of Inspir ed Oxygen 04/25/24 08:19 04/25/24 08:20 04/25/24 08:22 Temperature Pulse Rate 146 H 147 H 143 H Pulse Rate [Right Pulse Oximeter] Respiratory Rate Blood Pressure 215/146 H 220/149 H Blood Pressure [Ri ght Upper Arm] Pulse Oximetry 96 94 93 Oxygen Delivery Me thod BiPAP BiPAP BiPAP Oxygen Flow Rate 40 40 40 Fraction of Inspir ed Oxygen 04/25/24 08:30 04/25/24 08:32 04/25/24 08:42 Temperature Pulse Rate 143 H 141 H 138 H Pulse Rate [Right Pulse Oximeter] Respiratory Rate Blood Pressure 209/141 H 207/144 H Blood Pressure [Ri ght Upper Arm] Pulse Oximetry 93 93 91 Oxygen Delivery Me thod BiPAP BiPAP BiPAP Oxygen Flow Rate 40 40 40 Fraction of Inspir ed Oxygen 04/25/24 08:45 04/25/24 08:52 04/25/24 09:00 Temperature Pulse Rate 139 H 137 H 147 H Pulse Rate [Right Pulse Oximeter] Respiratory Rate Blood Pressure 206/140 H Blood Pressure [Ri ght Upper Arm] Pulse Oximetry 91 94 94 Oxygen Delivery Me thod BiPAP BiPAP BiPAP Oxygen Flow Rate 40 40 40 Fraction of Inspir ed Oxygen 04/25/24 09:02 04/25/24 09:12 04/25/24 09:15 Temperature Pulse Rate 143 H 144 H 142 H Pulse Rate [Right Pulse Oximeter] Respiratory Rate Blood Pressure 211/143 H 190/133 H Blood Pressure [Ri ght Upper Arm] Pulse Oximetry 94 96 94 Oxygen Delivery Me thod BiPAP BiPAP BiPAP Oxygen Flow Rate 40 40 40 Fraction of Inspir ed Oxygen 04/25/24 09:16 04/25/24 09:17 04/25/24 09:19 Temperature Pulse Rate 143 H 141 H Pulse Rate [Right Pulse Oximeter] Respiratory Rate Blood Pressure 203/128 H Blood Pressure [Ri ght Upper Arm] Pulse Oximetry 93 94 Oxygen Delivery Me thod BiPAP BiPAP Oxygen Flow Rate 40 Fraction of Inspir ed Oxygen 40 04/25/24 09:29 04/25/24 09:30 04/25/24 09:32 Temperature 98.1 F Pulse Rate 134 H 134 H Pulse Rate [Right Pulse Oximeter] Respiratory Rate Blood Pressure 188/126 H Blood Pressure [Ri ght Upper Arm] Pulse Oximetry 92 92 Oxygen Delivery Me thod BiPAP BiPAP Oxygen Flow Rate Fraction of Inspir ed Oxygen 04/25/24 09:36 04/25/24 09:45 04/25/24 09:47 Temperature Pulse Rate 119 H 118 H Pulse Rate [Right Pulse Oximeter] Respiratory Rate 25 H Blood Pressure 182/118 H Blood Pressure [Ri ght Upper Arm] Pulse Oximetry 93 93 Oxygen Delivery Me thod BiPAP BiPAP Oxygen Flow Rate Fraction of Inspir ed Oxygen 04/25/24 10:00 04/25/24 10:02 04/25/24 10:15 Temperature Pulse Rate 135 H 131 H 133 H Pulse Rate [Right Pulse Oximeter] Respiratory Rate Blood Pressure 193/128 H Blood Pressure [Ri ght Upper Arm] Pulse Oximetry 93 95 95 Oxygen Delivery Me thod BiPAP BiPAP BiPAP Oxygen Flow Rate Fraction of Inspir ed Oxygen 04/25/24 10:16 04/25/24 10:30 04/25/24 10:32 Temperature Pulse Rate 130 H 114 H 114 H Pulse Rate [Right Pulse Oximeter] Respiratory Rate Blood Pressure 194/120 H 185/112 H Blood Pressure [Ri ght Upper Arm] Pulse Oximetry 96 97 96 Oxygen Delivery Me thod BiPAP BiPAP BiPAP Oxygen Flow Rate Fraction of Inspir ed Oxygen 04/25/24 10:33 04/25/24 10:45 04/25/24 10:47 Temperature Pulse Rate 112 H 99 110 H Pulse Rate [Right Pulse Oximeter] Respiratory Rate Blood Pressure 171/118 H Blood Pressure [Ri ght Upper Arm] Pulse Oximetry 95 95 95 Oxygen Delivery Me thod BiPAP BiPAP BiPAP Oxygen Flow Rate Fraction of Inspir ed Oxygen 04/25/24 11:00 04/25/24 11:02 04/25/24 11:15 Temperature Pulse Rate 103 H 102 H 111 H Pulse Rate [Right Pulse Oximeter] Respiratory Rate Blood Pressure 175/104 H Blood Pressure [Ri ght Upper Arm] Pulse Oximetry 98 96 97 Oxygen Delivery Me thod BiPAP BiPAP BiPAP Oxygen Flow Rate Fraction of Inspir ed Oxygen 04/25/24 11:16 Temperature Pulse Rate 109 H Pulse Rate [Right Pulse Oximeter] Respiratory Rate Blood Pressure 172/115 H Blood Pressure [Ri ght Upper Arm] Pulse Oximetry 98 Oxygen Delivery Me thod BiPAP Oxygen Flow Rate Fraction of Inspir ed Oxygen Course Course ED Course: EKG, read by me, shows sinus tachycardia with a pulse of 147. Patient is currently maintaining on BiPAP therefore IV established and labs were drawn. CBC shows a white cell count of 12.8, hemoglobin is 9.6. Platelet count 278. PH is 7.062, HC03 is 13., pCO2 normal at 45. Normal potassium and sodium. BUN is 62 and creatinine is 6.6. Glucose is elevated at 242. Lactate is elevated at 4.1. Normal LFTs. Troponin elevated at 0.06. Normal CRP. BNP above 25,000 Ethyl alcohol less than 0.01. Triple swab is negative. Chest x-ray, read by me, shows bilateral significant pulmonary edema. While in the ER patient received 20 mg of IV Lasix followed by normal saline 500 mL over an hour with 50 mEq of bicarb. Consulted Dr. Quiroz, academic advising director at [facility], who will be accepting the patient for transfer to their ICU. After Lasix patient did have about 200 mL of clear yellow urine output. After no further urine output we did repeat IV Lasix at 40 mg. Repeat VBG did show slight improvement with a pH of 7.187 and a HC03 of 17. Patient remained stable on BiPAP. His blood pressure did come down as did his pulse. Vital Signs Vital signs: Initial Vital Signs Respiratory Effort Spontaneous, Short of Breath, Abdominal Breathing 04/25/24 08:05 Respiratory Depth Shallow 04/25/24 08:05 Respiratory Pattern Normal, Tachypnea 04/25/24 08:05 Vital Signs Temperature 97.1 F L 04/25/24 08:06 Pulse Rate 142 H 04/25/24 08:06 Respiratory Rate 18 04/25/24 08:06 Blood Pressure 226/155 H 04/25/24 08:06 Pulse Oximetry 100 04/25/24 08:06 Oxygen Delivery Method BiPAP 04/25/24 08:06 Temperature 98.1 F 04/25/24 09:29 Pulse Rate 109 H 04/25/24 11:16 Respiratory Rate 25 H 04/25/24 09:36 Blood Pressure 172/115 H 04/25/24 11:16 Pulse Oximetry 98 04/25/24 11:16 Oxygen Delivery Method BiPAP 04/25/24 11:16 Oxygen Flow Rate 40 04/25/24 09:16 Fraction of Inspired Oxygen 40 04/25/24 09:19 Medications Administered Medications: Discontinued Medications Generic Name Dose Route Start Last Admin Trade Name Quincyq PRN Reason Stop Dose Admin Furosemide 20 mg 04/25/24 08:22 04/25/24 08:34 Furosemide 10 Mg/Ml Inj IVP 04/25/24 08:23 20 mg ONCE ONE Administration Furosemide 40 mg 04/25/24 09:54 04/25/24 09:59 Furosemide 10 Mg/Ml Inj IVP 04/25/24 09:55 40 mg ONCE ONE Administration Sodium Chloride 500 mls @ 500 mls/hr 04/25/24 08:57 04/25/24 10:10 0.9 % Sodium Chloride 500 Ml IV 04/25/24 09:56 Infused .Q1H ONE Infusion Sodium Bicarbonate 50 meq 04/25/24 08:51 04/25/24 09:04 Sodium Bicarbonate 50 Meq/50ml Syringe IVP 04/25/24 08:52 50 meq ONCE ONE Administration Medical Decision Making MDM Narrative Medical decision making narrative: 63-year-old male in acute respiratory failure. Treatment per above. Patient will be transferred to [facility] ICU. Lab Data Lab results reviewed: Yes I reviewed the patient's lab results Labs: Lab Results 04/25/24 04/25/24 04/25/24 Range/Units 08:17 08:18 08:25 WBC 12.85 H (4.50-11.00) K/uL RBC 2.91 L (4.30-5.90) m/uL Hgb 9.6 L (13.5-17.5) gm/dL Hct 31.1 L (37.0-53.0) % MCV 107 H (80-100) fL MCH 33 (26-34) pg MCHC 31 L (32-36) gm/dL RDW Coeff of Martir 14.1 (11.5-15.5) % Plt Count 278 (140-440) K/uL Neut % (Auto) 39.9 L (42.0-72.0) % Lymph % (Auto) 47.2 H (20-44) % [place] % (Auto) 5.5 (0.0-11.0) % Eos % (Auto) 6.1 (0.0-7.0) % Baso % (Auto) 1.0 (0.0-3.0) % Neut # (Auto) 5.10 (1.7-7.0) K/uL Lymph # (Auto) 6.10 H (0.90-2.90) K/uL [place] # (Auto) 0.70 (0.00-0.90) K/UL Eos # (Auto) 0.80 H (0.00-0.50) K/uL Baso # (Auto) 0.10 (0.00-0.30) K/uL Abs Immat Gran (auto) 0.00 (0.00-0.30) K/uL Imm/Tot Granulo (auto) 0.3 % Diff Slide Review Acceptable Review (Acceptable) VBG pH 7.062 L* (7.32-7.43) VBG pCO2 45 (40-50) mmHG VBG pO2 46.8 (25-47) mmHG VBG HCO3 13 L (21-28) mmol/L Sodium 141 (135-149) mmol/L Potassium 4.7 (3.6-5.1) mmol/L Chloride 114 (96-114) mmol/L Carbon Dioxide 10 L (20-32) mmol/L Anion Gap 17 H (7-15) mEq/L BUN 62 H (7-30) mg/dL Creatinine 6.6 H (0.5-1.5) mg/dL Estimated Creat Clear 9.97 Estimated GFR 9 ml/min Glucose 242 H (60-115) mg/dL Lactate 4.1 H* (0.5-1.9) mmol/L Calcium 8.2 L (8.4-10.6) mg/dL Magnesium 2.1 (1.5-2.6) mg/dL Total Bilirubin 0.2 (0.1-1.5) mg/dL Direct Bilirubin 0.2 (0.0-0.5) mg/dL AST 21 (12-35) U/L ALT 13 (4-50) U/L Alkaline Phosphatase 95 (40-150) U/L Troponin I 0.06 H* (0.01-0.04) ng/mL C-Reactive Protein < 0.5 L (0.5-1.0) mg/dL NT-Pro-B Natriuret Pep 28518 pg/mL Total Protein 6.6 (6.0-8.3) g/dL Albumin 3.9 (3.3-5.0) g/dL Procalcitonin 8.78 H (<0.50) ng/mL Acetaminophen < 10.0 L (10.0-30.0) ug/mL Ethyl Alcohol < 0.01 L (0.01-0.03) % SARS-CoV-2 (PCR) Negative SARS-CoV-2 (Negative) Influenza Type A (PCR) Negative PCR FLU A (Negative) Influenza Type B (PCR) Negative PCR FLU B (Negative) RSV (PCR) Negative PCR RSV (Negative) POC Troponin I 0.08 H (0.01-0.04) ng/ml 04/25/24 Range/Units 10:02 WBC (4.50-11.00) K/uL RBC (4.30-5.90) m/uL Hgb (13.5-17.5) gm/dL Hct (37.0-53.0) % MCV (80-100) fL MCH (26-34) pg MCHC (32-36) gm/dL RDW Coeff of Martir (11.5-15.5) % Plt Count (140-440) K/uL Neut % (Auto) (42.0-72.0) % Lymph % (Auto) (20-44) % [place] % (Auto) (0.0-11.0) % Eos % (Auto) (0.0-7.0) % Baso % (Auto) (0.0-3.0) % Neut # (Auto) (1.7-7.0) K/uL Lymph # (Auto) (0.90-2.90) K/uL [place] # (Auto) (0.00-0.90) K/UL Eos # (Auto) (0.00-0.50) K/uL Baso # (Auto) (0.00-0.30) K/uL Abs Immat Gran (auto) (0.00-0.30) K/uL Imm/Tot Granulo (auto) % Diff Slide Review (Acceptable) VBG pH 7.187 L* (7.32-7.43) VBG pCO2 45 (40-50) mmHG VBG pO2 33.5 (25-47) mmHG VBG HCO3 17 L (21-28) mmol/L Sodium (135-149) mmol/L Potassium (3.6-5.1) mmol/L Chloride (96-114) mmol/L Carbon Dioxide (20-32) mmol/L Anion Gap (7-15) mEq/L BUN (7-30) mg/dL Creatinine (0.5-1.5) mg/dL Estimated Creat Clear Estimated GFR ml/min Glucose (60-115) mg/dL Lactate (0.5-1.9) mmol/L Calcium (8.4-10.6) mg/dL Magnesium (1.5-2.6) mg/dL Total Bilirubin (0.1-1.5) mg/dL Direct Bilirubin (0.0-0.5) mg/dL AST (12-35) U/L ALT (4-50) U/L Alkaline Phosphatase (40-150) U/L Troponin I (0.01-0.04) ng/mL C-Reactive Protein (0.5-1.0) mg/dL NT-Pro-B Natriuret Pep pg/mL Total Protein (6.0-8.3) g/dL Albumin (3.3-5.0) g/dL Procalcitonin (<0.50) ng/mL Acetaminophen (10.0-30.0) ug/mL Ethyl Alcohol (0.01-0.03) % SARS-CoV-2 (PCR) (Negative) Influenza Type A (PCR) (Negative) Influenza Type B (PCR) (Negative) RSV (PCR) (Negative) POC Troponin I (0.01-0.04) ng/ml Imaging Data Chest x-ray: Attestation: I have reviewed the pertinent imaging results. Radiologist's impression: Indication: : Shortness of breath TECHNIQUE: Single-view chest. FINDINGS: Enlarged cardiac silhouette diffuse interstitial opacities could represent pulmonary edema and/or fibrosis. Multiple old right-sided rib fractures no large effusion. Basilar atelectasis no pneumothorax. ECG Data Attestation: I personally reviewed and interpreted this ECG as follows: Critical Care Time Critical Care Time Total Critical Care Time in Minutes: 120 Discharge Plan Discharge Clinical Impression: Acute respiratory failure Patient Disposition: Xfer Other Discharge Location: [facility] Condition: Critical Prescriptions: No Action carvedilol 12.5 mg tablet 12.5 mg PO BID amlodipine 5 mg tablet 5 mg PO DAILY Follow Up/Referrals: Dipak Louis MD [Primary Care Provider] - Stand Alone Forms: Bulb Info Instructions
[2024-04-25] MEDS: FUROSEMIDE 10 MG/ML inj 40 MG IVP (09:59)
[2024-04-25 10:21] LABS: HCO3 VBG 17 mmol/L (21-28); PCO2 VBG 45 mmHG (40-50); PO2 VBG 33.5 mmHG (25-47)
[2024-04-25 10:23] LABS: pH VBG 7.187 (7.32-7.43)
--- NOTE | 2024-04-25 11:30 | ED.NURSE ---
Pt report given to Mary AMAYA.
== END 2024-04-25 13:25 | disposition other institution (70) ==
PROVIDERS: Emergency Provider Family Medicine; PCP Family Medicine
DX: J96.90 Respiratory failure, unspecified, unspecified whether with hypoxia or hypercapnia (principal)
CPT/HCPCS: 36415; 71045; 80048; 80076; 80143; 82077; 82803; 83605; 83735; 83880; 84145; 84484; 85025; 86140; 87631; 93005; 94660; 94761; 96374; 96375; 96376; 99285; 99291; 99292; J1940; J7030

== ENCOUNTER 2024-04-25 13:12 | Outpatient (CLI) | payer MEDICAID, SELFPAY | END 2024-04-25 13:13 | disposition home or self-care (01) | LOC: AMB 04-26 03:01 | PROVIDERS: PCP Family Medicine; Visit Provider Family Medicine | DX: J96.90 Respiratory failure, unspecified, unspecified whether with hypoxia or hypercapnia (principal) | CPT/HCPCS: A0425; A0427 ==

== ENCOUNTER 2024-05-05 15:59 | Outpatient (CLI) | payer MEDICAID, SELFPAY | END 2024-05-05 16:00 | disposition home or self-care (01) | LOC: AMB 05-07 03:16 | PROVIDERS: PCP Family Medicine; Visit Provider Family Medicine | DX: R53.1 Weakness (principal) | CPT/HCPCS: A0425; A0429 ==

== ENCOUNTER 2024-05-05 16:16 | Emergency (ER) | payer MEDICAID, SELFPAY ==
[2024-05-05 16:20] VITALS: BP 131/102; PULSE 96; RESP 18; O2SAT 96; BMI 17.5
--- NOTE | 2024-05-05 16:35 | ED.GENADULT ---
HPI - General Adult General Chief complaint: Unspecified Complaint, Adult Stated complaint: Mental health Time Seen by Provider: 05/05/24 16:25 History of Present Illness HPI narrative: This 63-year-old male comes in by ambulance. The ambulance was called by his dialysis center because he did not show up for his regularly scheduled dialysis today. The patient states that he did not have a ride to get to dialysis. Normally you Roberto arranges a ride for him but that ride did not show up today. The patient states that he feels fine. He states that there is a different ride arrangement for his next dialysis occurring 2 days from now. He states that he does make some urine. He arrives here with normal vital signs. He does not know why he needs to be here. Related Data Home Medications ?Medication ?Instructions ?Recorded ?Confirmed amlodipine 5 mg tablet 5 mg PO DAILY 05/18/23 05/05/24 carvedilol 12.5 mg tablet 12.5 mg PO BID 05/18/23 05/05/24 Allergies Allergy/AdvReac Type Severity Reaction Status Date / Time ranitidine AdvReac itch Verified 05/05/24 16:25 Review of Systems Status of ROS: Reports: 10 or more systems reviewed and unremarkable except as noted in History and below Narrative: Constitutional: No fevers, no weight gain or loss. Eyes: No discharge. No vision changes. HENT: No congestion, no sore throat, no ear pain. Cardiovascular: No chest pain, no palpitations. Respiratory: No shortness of breath, no wheezes, no cough. Gastrointestinal: No abdominal pain, no vomiting, no diarrhea. Genitourinary: No dysuria, no hematuria. Musculoskeletal: Normal range of motion. Skin: No rashes, no pruritis. Neurological: No dizziness, weakness, sensory change, speech change. Endo/Heme/Allergies: No bruising or bleeding. No polydipsia. Pysch: no suicidality, no anxiety, no insomnia. All other systems reviewed and are negative. [facility] Medical History Altered mental status ?R41.82 - Altered mental status, unspecified (ICD-10) Non-STEMI (non-ST elevated myocardial infarction) ?I21.4 - Non-ST elevation (NSTEMI) myocardial infarction (ICD-10) Smoking ?F17.200 - Nicotine dependence, unspecified, uncomplicated (ICD-10) Alcohol use disorder ?F10.90 - Alcohol use, unspecified, uncomplicated (ICD-10) COPD (chronic obstructive pulmonary disease) ?J44.9 - Chronic obstructive pulmonary disease, unspecified (ICD-10) Coronary artery disease ?I25.10 - Atherosclerotic heart disease of [place] coronary artery without angina pectoris (ICD-10) Stage 4 chronic kidney disease ?N18.4 - Chronic kidney disease, stage 4 (severe) (ICD-10) Pulmonary hypertension ?I27.20 - Pulmonary hypertension, unspecified (ICD-10) Right heart failure ?I50.810 - Right heart failure, unspecified (ICD-10) Heart failure with reduced ejection fraction ?I50.20 - Unspecified systolic (congestive) heart failure (ICD-10) Social History Narrative: Patient apparently lives in an apartment in [place]. Smokes a pack of cigarettes a day. He has a history of alcohol abuse but current consumption is unknown. Unable to discuss plan of care or goals of care What is your current living situation?: unable to answer Problems where you live: unable to answer Problems where you live details: unknown In the past 12 months, utilities in danger of being shut off: unable to answer In the past 12 mos, have been you worried that your food would run out before you had money to buy more?: unable to answer In the past 12 mos, the food you bought just didn't last and you didn't have money to buy more?: unable to answer Highest level of school completed/degree received: don't know Smoking Status: Current every day smoker Do you use any of these nicotine containing products: None Second hand tobacco smoke exposure: Yes How often do you have a drink containing alcohol: 4 or more times a week AUDIT-C Alcohol total score: 4 Non-prescribed substance use details: unknown How often does anyone, including family, friends and others, physically hurt you: unable to answer How often does anyone, including family, friends and others, insult or talk down to you: unable to answer How often does anyone, including family, friends and others, threaten you with harm: unable to answer How often does anyone, including family, friends and others, scream or curse at you: unable to answer service: No Exam Narrative: Exam Narrative: Constitutional: Well-developed, well-nourished, no acute distress. HEENT: Normocephalic, atraumatic. Neck: Normal range of motion. Nontender. Supple. Heart: Intact distal pulses. Lungs: No chest discomfort. No wheezes, rhonchi, or rales. Abdomen: Nontender. Back: Normal range of motion. Extremities: Normal range of motion. No injury. Skin: Intact. No rash. Warm. No erythema or pallor. Neurologic: No altered sensation. No weakness. Alert and oriented. Psychiatric: No suicidality. No anxiety or depression. No insomnia. Nursing notes and vitals signs are reviewed. Const: Vital Signs, click to edit/add: Vital Signs - 24 hr 05/05/24 16:20 Pulse Rate [Right Pulse Oximeter] 96 Respiratory Rate 18 Blood Pressure [Ri ght Upper Arm] 131/102 H Pulse Oximetry 96 Oxygen Delivery Me thod Room Air Course Vital Signs Vital signs: Initial Vital Signs Pulse Rate 96 05/05/24 16:20 Pulse Rhythm Regular 05/05/24 16:20 Pulse Strength 3+ Normal 05/05/24 16:20 Respiratory Rate 18 05/05/24 16:20 Blood Pressure 131/102 H 05/05/24 16:20 Blood Pressure Mean 111 H 05/05/24 16:20 Blood Pressure Position Semi-Fowlers 05/05/24 16:20 Pulse Oximetry 96 05/05/24 16:20 Oxygen Delivery Method Room Air 05/05/24 16:20 Vital Signs Pulse Rate 96 05/05/24 16:20 Respiratory Rate 18 05/05/24 16:20 Blood Pressure 131/102 H 05/05/24 16:20 Pulse Oximetry 96 05/05/24 16:20 Oxygen Delivery Method Room Air 05/05/24 16:20 Pulse Rate 96 05/05/24 16:20 Respiratory Rate 18 05/05/24 16:20 Blood Pressure 131/102 H 05/05/24 16:20 Pulse Oximetry 96 05/05/24 16:20 Oxygen Delivery Method Room Air 05/05/24 16:20 Medical Decision Making MDM Narrative Medical decision making narrative: This patient missed his dialysis appointment. He states that he feels fine. He reports that he does make some urine. Ambulance came to his place because the dialysis center called 911 because he missed his appointment. He missed it because his ride did not show up. He has a different arrangement for the next appointment in a couple days. He should be okay to resume dialysis as scheduled 2 days from now. The patient wishes to be discharged home and arrangements are made for a ride for him to get back home from here. Discharge Plan Discharge Clinical Impression: Stage 4 chronic kidney disease Patient Disposition: Home, Self-Care Condition: Stable Additional Instructions: Continue current plans. Resume dialysis on Friday as scheduled. Follow up with MD otherwise as needed. Prescriptions: No Action carvedilol 12.5 mg tablet 12.5 mg PO BID amlodipine 5 mg tablet 5 mg PO DAILY Follow Up/Referrals: Dipak Louis MD [Primary Care Provider] - Stand Alone Forms: LoSo Info Instructions
== END 2024-05-05 16:41 | disposition home or self-care (01) ==
PROVIDERS: Emergency Provider Emergency Medicine Emergency Medical Services; PCP Family Medicine
DX: N18.4 Chronic kidney disease, stage 4 (severe) (principal)
CPT/HCPCS: 99284

== ENCOUNTER 2024-05-06 07:35 | Outpatient (CLI) | payer MEDICAID, SELFPAY | END 2024-05-06 07:36 | disposition home or self-care (01) | LOC: AMB 05-07 04:42 | PROVIDERS: PCP Family Medicine; Visit Provider Family Medicine | DX: R06.09 Other forms of dyspnea (principal) | CPT/HCPCS: A0425; A0427 ==

== ENCOUNTER 2024-05-06 07:55 | Emergency (ER) | payer MEDICAID, SELFPAY ==
[2024-05-06] VITALS (21 sets, daily range): BP systolic 93–202; BP diastolic 64–166; PULSE 66–143; RESP 22–36; TEMP 35.6; O2SAT 83–100; BMI 24.8
--- NOTE | 2024-05-06 | CRLHL7_ITS ---
For Patients: As a result of the Century Cures Act, medical imaging exams and procedure reports are released immediately into your electronic medical record. You may view this report before your referring provider. If you have questions, please contact your health care provider. INDICATION: Respiratory distress TECHNIQUE: Chest 1 views. COMPARISON: Chest radiograph 04/25/2024. FINDINGS: Cardiovasculature and mediastinum: Borderline cardiomegaly is stable. Unremarkable mediastinum. Right IJ central venous catheter with tip in the lower SVC. Lungs and pleural spaces: Lung apices are obscured by the head. Interstitial prominence is slightly decreased compared to prior. No pneumothorax or pleural effusion. Bones and soft tissues: Old right rib fractures. IMPRESSION: Interstitial prominence is slightly decreased compared to prior, and likely represents moderate pulmonary edema or atypical infection. Right central venous catheter with tip in the lower SVC. Dictated by Naima Patterson MD @ 05/06/2024 8:19:28 AM (Electronically Signed)
--- NOTE | 2024-05-06 08:02 | ED_ITS ---
HPI - General Adult General Chief complaint: Shortness of Breath/Dyspnea <Linda Short MD - Last Filed: 05/11/24 00:02> Stated complaint: difficulty breathing <Linda Short MD - Last Filed: 05/11/24 00:02> Time Seen by Provider: 05/06/24 08:02 <Linda Short MD - Last Filed: 05/11/24 00:02> Source: EMS <Linda Short MD - Last Filed: 05/11/24 00:02> Mode of arrival: EMS <Linda Short MD - Last Filed: 05/11/24 00:02> Limitations: physical limitation <Linda Short MD - Last Filed: 05/11/24 00:02> History of Present Illness HPI narrative: Brief initial note, attended quickly at the end of my shift as patient came in in severe respiratory distress. Patient has a history of end-stage kidney disease on dialysis on also severe COPD as well as alcoholism. He missed dialysis yesterday due to no ride availability. He was actually seen in our ED yesterday as well. He was treated for shortness of breath. He was apparently seen a week ago as well and was treated with BiPAP for respiratory distress at that time. EMS called on route saying they were concerned of imminent respiratory failure and I met them at the door. He was able to follow some commands though he does seem visibly in respiratory distress. With coaching he was able to move himself onto the hospital bed from the EMS gurney. He is quickly placed on BiPAP while we attempt to secure IV lines. He was not tolerating the non-rebreather well nor was it improving his oxygen saturations by much. Was initially 82-83% on arrival. He would spit up sputum frequently and take his mask off as he felt like it was uncomfortable. Eventually with the BiPAP, he did tolerate this better and sat forward but would allow more cares. After a few attempts, we were able to get an IV started. I let the team know that ultimately he will likely require transfer for emergent dialysis and management and I will be handing over care promptly to incoming day shift partner. Note reviewed from yesterday and last week. [facility] Solu-Medrol ordered, labs ordered. Very limited HPI from patient due to the acuity of his respiratory distress. He was not able to answer much for questions from EMS either. Limited note and exam today. - Dr. Short <Linda Short MD - Last Filed: 05/11/24 00:02> Related Data Home medications: Home Medications ?Medication ?Instructions ?Recorded ?Confirmed amlodipine 5 mg tablet 5 mg PO DAILY 05/18/23 05/05/24 carvedilol 12.5 mg tablet 12.5 mg PO BID 05/18/23 05/05/24 <Linda Short MD - Last Filed: 05/11/24 00:02> Allergies/adverse reactions: Allergies Allergy/AdvReac Type Severity Reaction Status Date / Time ranitidine AdvReac itch Verified 05/05/24 16:25 <Linda Short MD - Last Filed: 05/11/24 00:02> [facility] Medical History: Medical History Altered mental status ?R41.82 - Altered mental status, unspecified (ICD-10) Non-STEMI (non-ST elevated myocardial infarction) ?I21.4 - Non-ST elevation (NSTEMI) myocardial infarction (ICD-10) Smoking ?F17.200 - Nicotine dependence, unspecified, uncomplicated (ICD-10) Alcohol use disorder ?F10.90 - Alcohol use, unspecified, uncomplicated (ICD-10) COPD (chronic obstructive pulmonary disease) ?J44.9 - Chronic obstructive pulmonary disease, unspecified (ICD-10) Coronary artery disease ?I25.10 - Atherosclerotic heart disease of [place] coronary artery without angina pectoris (ICD-10) Stage 4 chronic kidney disease ?N18.4 - Chronic kidney disease, stage 4 (severe) (ICD-10) Pulmonary hypertension ?I27.20 - Pulmonary hypertension, unspecified (ICD-10) Right heart failure ?I50.810 - Right heart failure, unspecified (ICD-10) Heart failure with reduced ejection fraction ?I50.20 - Unspecified systolic (congestive) heart failure (ICD-10) <Linda Short MD - Last Filed: 05/11/24 00:02> Social History: Social History Narrative: Patient apparently lives in an apartment in [place]. Smokes a pack of cigarettes a day. He has a history of alcohol abuse but current consumption is unknown. Unable to discuss plan of care or goals of care What is your current living situation?: unable to answer Problems where you live: unable to answer Problems where you live details: unknown In the past 12 months, utilities in danger of being shut off: unable to answer In the past 12 mos, have been you worried that your food would run out before you had money to buy more?: unable to answer In the past 12 mos, the food you bought just didn't last and you didn't have money to buy more?: unable to answer Highest level of school completed/degree received: don't know Smoking Status: Current every day smoker Do you use any of these nicotine containing products: None Second hand tobacco smoke exposure: Yes How often do you have a drink containing alcohol: 4 or more times a week AUDIT-C Alcohol total score: 4 Non-prescribed substance use: denies use Non-prescribed substance use details: unknown How often does anyone, including family, friends and others, physically hurt you : unable to answer How often does anyone, including family, friends and others, insult or talk down to you: unable to answer How often does anyone, including family, friends and others, threaten you with harm: unable to answer How often does anyone, including family, friends and others, scream or curse at you: unable to answer service: No <Linda Short MD - Last Filed: 05/11/24 00:02> Exam Const: Vital Signs, click to edit/add: Vital Signs - 24 hr 05/06/24 08:04 05/06/24 08:07 05/06/24 08:15 Temperature Pulse Rate 139 H 143 H Pulse Rate [Left P ulse Oximeter] Respiratory Rate 35 H Blood Pressure Blood Pressure [Le ft Upper Arm] Pulse Oximetry 100 97 96 Oxygen Delivery Me thod BiPAP BiPAP Fraction of Inspir ed Oxygen 60 40 05/06/24 08:16 05/06/24 08:21 05/06/24 08:26 Temperature Pulse Rate 139 H 137 H 138 H Pulse Rate [Left P ulse Oximeter] Respiratory Rate 27 H Blood Pressure 201/166 H 196/144 H 201/135 H Blood Pressure [Le ft Upper Arm] Pulse Oximetry 98 96 96 Oxygen Delivery Me thod Fraction of Inspir ed Oxygen 05/06/24 08:30 05/06/24 08:30 05/06/24 08:32 Temperature 96.0 F L Pulse Rate 133 H Pulse Rate [Left P ulse Oximeter] 134 H Respiratory Rate 36 H Blood Pressure Blood Pressure [Le ft Upper Arm] 193/124 H Pulse Oximetry 96 83 L Oxygen Delivery Me thod Non Rebreather Mas k Fraction of Inspir ed Oxygen 40 05/06/24 08:32 05/06/24 08:36 05/06/24 08:42 Temperature Pulse Rate 133 H 129 H 124 H Pulse Rate [Left P ulse Oximeter] Respiratory Rate 28 H 26 H 27 H Blood Pressure 200/136 H 197/127 H 196/123 H Blood Pressure [Le ft Upper Arm] Pulse Oximetry 96 95 96 Oxygen Delivery Me thod Fraction of Inspir ed Oxygen 05/06/24 08:47 05/06/24 08:52 05/06/24 09:01 Temperature Pulse Rate 120 H 126 H Pulse Rate [Left P ulse Oximeter] Respiratory Rate 24 24 Blood Pressure 187/122 H 202/124 H Blood Pressure [Le ft Upper Arm] Pulse Oximetry 96 94 98 Oxygen Delivery Me thod BiPAP Fraction of Inspir ed Oxygen 05/06/24 09:01 05/06/24 09:17 05/06/24 09:18 Temperature Pulse Rate 116 H 108 H 108 H Pulse Rate [Left P ulse Oximeter] Respiratory Rate 25 H 24 24 Blood Pressure 123/102 H 93/64 112/101 H Blood Pressure [Le ft Upper Arm] Pulse Oximetry 96 94 95 Oxygen Delivery Me thod Fraction of Inspir ed Oxygen 05/06/24 09:37 05/06/24 09:41 05/06/24 09:46 Temperature Pulse Rate 71 75 93 Pulse Rate [Left P ulse Oximeter] Respiratory Rate 24 26 H 23 Blood Pressure 138/68 176/88 H 170/95 H Blood Pressure [Le ft Upper Arm] Pulse Oximetry 95 98 99 Oxygen Delivery Me thod Fraction of Inspir ed Oxygen 05/06/24 09:58 05/06/24 10:02 05/06/24 10:16 Temperature Pulse Rate 66 67 77 Pulse Rate [Left P ulse Oximeter] Respiratory Rate 24 22 23 Blood Pressure 156/95 H 151/82 H 154/101 H Blood Pressure [Le ft Upper Arm] Pulse Oximetry 97 97 99 Oxygen Delivery Me thod Fraction of Inspir ed Oxygen <Linda Short MD - Last Filed: 05/11/24 00:02> Vital Signs, click to edit/add: Vital Signs - 24 hr 05/06/24 08:04 05/06/24 08:07 05/06/24 08:15 Temperature Pulse Rate 139 H 143 H Pulse Rate [Left P ulse Oximeter] Respiratory Rate 35 H Blood Pressure Blood Pressure [Le ft Upper Arm] Pulse Oximetry 100 97 96 Oxygen Delivery Me thod BiPAP BiPAP Fraction of Inspir ed Oxygen 60 40 05/06/24 08:16 05/06/24 08:21 05/06/24 08:26 Temperature Pulse Rate 139 H 137 H 138 H Pulse Rate [Left P ulse Oximeter] Respiratory Rate 27 H Blood Pressure 201/166 H 196/144 H 201/135 H Blood Pressure [Le ft Upper Arm] Pulse Oximetry 98 96 96 Oxygen Delivery Me thod Fraction of Inspir ed Oxygen 05/06/24 08:30 05/06/24 08:30 05/06/24 08:32 Temperature 96.0 F L Pulse Rate 133 H Pulse Rate [Left P ulse Oximeter] 134 H Respiratory Rate 36 H Blood Pressure Blood Pressure [Le ft Upper Arm] 193/124 H Pulse Oximetry 96 83 L Oxygen Delivery Me thod Non Rebreather Mas k Fraction of Inspir ed Oxygen 40 05/06/24 08:32 05/06/24 08:36 05/06/24 08:42 Temperature Pulse Rate 133 H 129 H 124 H Pulse Rate [Left P ulse Oximeter] Respiratory Rate 28 H 26 H 27 H Blood Pressure 200/136 H 197/127 H 196/123 H Blood Pressure [Le ft Upper Arm] Pulse Oximetry 96 95 96 Oxygen Delivery Me thod Fraction of Inspir ed Oxygen 05/06/24 08:47 05/06/24 08:52 05/06/24 09:01 Temperature Pulse Rate 120 H 126 H Pulse Rate [Left P ulse Oximeter] Respiratory Rate 24 24 Blood Pressure 187/122 H 202/124 H Blood Pressure [Le ft Upper Arm] Pulse Oximetry 96 94 98 Oxygen Delivery Me thod BiPAP Fraction of Inspir ed Oxygen 05/06/24 09:01 05/06/24 09:17 05/06/24 09:18 Temperature Pulse Rate 116 H 108 H 108 H Pulse Rate [Left P ulse Oximeter] Respiratory Rate 25 H 24 24 Blood Pressure 123/102 H 93/64 112/101 H Blood Pressure [Le ft Upper Arm] Pulse Oximetry 96 94 95 Oxygen Delivery Me thod Fraction of Inspir ed Oxygen 05/06/24 09:37 05/06/24 09:41 05/06/24 09:46 Temperature Pulse Rate 71 75 93 Pulse Rate [Left P ulse Oximeter] Respiratory Rate 24 26 H 23 Blood Pressure 138/68 176/88 H 170/95 H Blood Pressure [Le ft Upper Arm] Pulse Oximetry 95 98 99 Oxygen Delivery Me thod Fraction of Inspir ed Oxygen 05/06/24 09:58 05/06/24 10:02 05/06/24 10:16 Temperature Pulse Rate 66 67 77 Pulse Rate [Left P ulse Oximeter] Respiratory Rate 24 22 23 Blood Pressure 156/95 H 151/82 H 154/101 H Blood Pressure [Le ft Upper Arm] Pulse Oximetry 97 97 99 Oxygen Delivery Me thod Fraction of Inspir ed Oxygen Up did evaluate patient on my arrival. He is on BiPAP, able to respond to me, states he still is not feeling better but is certainly alert, interactive. Respiratory therapist states he is pulling tidal volumes of 5-700, settings are on 12 and 8 for the BiPAP. Sclera clear, can speak in short phrases. Lung sounds are distant, do hear some crackles, prolonged expiratory phase, do not hear any wheezing. Heart sounds are distant but fast, do not appreciate any murmur. Abdomen soft, nontender, nondistended. He has no lower extremity edema. Following commands, can move all extremities. Portable chest x-ray visualized and do see what seems to be consistent with fluid overload. Have reviewed patient's chart briefly, he was responsive to Lasix in the recent past, will try dose of 80 mg IV Lasix. Given that he is on BiPAP, do not want to take the BiPAP off for DuoNebs, will hold on the DuoNeb but give the IV steroids. Awaiting to talk to potential unit placement for emergent dialysis, ED staff looking for a facility at this time. <Nadege Romeo MD - Last Filed: 05/06/24 15:37> Documenting provider has reviewed patient's vital signs: yes <Linda Short MD - Last Filed: 05/11/24 00:02> Other: Moderate to severe respiratory distress, leaning forward, tripod position, poor tolerance of non-rebreather mask initially. Diaphoretic, pale, cachectic. Poor grooming. <Linda Short MD - Last Filed: 05/11/24 00:02> HENMT: Common normals: normocephalic <Linda Short MD - Last Filed: 05/11/24 00:02> Head and scalp: normocephalic <Linda Short MD - Last Filed: 05/11/24 00:02> Other: Poor dentition, membranes dry. <Linda Short MD - Last Filed: 05/11/24 00:02> Eye: Common normals: PERRL and conjunctivae normal <Linda Short MD - Last Filed: 05/11/24 00:02> Conjunctiva: conjunctiva(e) normal <Linda Short MD - Last Filed: 05/11/24 00:02> Pupil: PERRL <Linda Short MD - Last Filed: 05/11/24 00:02> Neck & C-Spine: Common normals: full ROM <Linda Short MD - Last Filed: 05/11/24 00:02> Resp: Other: Increased respiratory effort with poor air movement. Prolongation of expiration but I cannot distinctly hear any wheeze. But very poor air movement. <Linda Short MD - Last Filed: 05/11/24 00:02> Cardio: Common normals: regular rate, regular rhythm, S1 normal heart sound, S2 normal heart sound and no murmurs <MD Charity Iniguez Last Filed: 05/11/24 00:02> Rate: regular rate <Linda Short MD - Last Filed: 05/11/24 00:02> Rhythm: regular rhythm <Linda Short MD - Last Filed: 05/11/24 00:02> Heart sounds: S1 normal and S2 normal <Linda Short MD - Last Filed: 05/11/24 00:02> Other: Heart sounds are distant but no obvious murmur. I cannot hear a gallop. <Linda Short MD - Last Filed: 05/11/24 00:02> Extremity: Other: Capillary refill is right around 2 seconds in the hand. No obvious pitting edema on brief initial exam. <Linda Short MD - Last Filed: 05/11/24 00:02> Neuro: Other: Mildly agitated but will follow commands with redirection. After about 10 minutes on BiPAP, is more calm and following commands even better. <Linda Short MD - Last Filed: 05/11/24 00:02> Psych: Activity/motor behavior: appropriate eye contact <Linda Short MD - Last Filed: 05/11/24 00:02> Insight: fair <Linda Short MD - Last Filed: 05/11/24 00:02> Judgement: fair <Linda Short MD - Last Filed: 05/11/24 00:02> Skin: Common normals: no rashes or lesions noted <Linda Short MD - Last Filed: 05/11/24 00:02> General skin exam: no rashes or lesions noted <Linda Short MD - Last Filed: 05/11/24 00:02> Course Course ED Course: Hypoxic respiratory distress secondary to COPD and possibly volume overload secondary to missing dialysis. Patient is tolerating initial step of BiPAP well, will still need very close monitoring, may require intubation. IV steroids, DuoNeb, chest x-ray and labs. Will hand over in coming care to day shift partner. <Linda Short MD - Last Filed: 05/11/24 00:02> Reevaluation(s) Time of Reevaluation #1: 08:50 <Nadege Romeo MD - Last Filed: 05/06/24 15:37> Reevaluation #1: Did check on patient. He is resting, do need to touch him to stimulate him but he arouses easily, does seem crabby with me bothering him. He is seemingly less responsive than he was when I 1st saw him but that was when he was coming in and there was a lot happening, was definitely awake. His pCO2 on his venous blood gas at 8:06 a.m. was at 67 and is higher than previous. I am concerned about CO2 narcosis and will recheck another venous blood gas. If it is not improving or is increasing, do think we need to consider intubation. <Nadege Romeo MD - Last Filed: 05/06/24 15:37> Time of Reevaluation #2: 09:39 <Nadege Romeo MD - Last Filed: 05/06/24 15:37> Reevaluation #2: Nursing staff did recheck his blood pressure in his right arm, it is 138/68, pulse is come down into the 60s. I have just ordered nitroglycerin drip. I had just talked to the collar stitcher in he had gotten reports that the patient was unresponsive. Patient awakens with touch and essentially growls at me. He follows commands, he repositioned in the bed and rolls over onto his back so we can recheck the blood pressure in the left arm without it being tucked up underneath his body. I would like to see where his blood pressure is in that arm. It is noted in our chart that he had significantly different blood pressures between his arms. He does tell me that he has never had any graft work done in his arms, see no evidence of any fistulas. If his blood pressure truly is lower like this, he may be improving from fluid status and nitroglycerin may not be initiated at a higher dose. Blood pressure on his left arm lying flat is 176/88. He has arm discrepancy blood pressures which we are not going to evaluate further here. We will utilize the higher blood pressure and titrate nitro for clinical status. He obviously is in fluid overload in the nitroglycerin may help. <Nadege Thompson MD - Last Filed: 05/06/24 15:37> Consultations Consultation #1: Spoke with Dr. Castro hospitalist and Dr. Doran collar stitcher at [facility]. Had 14 minute phone conversation. Reviewed case. They do believe that they can accommodate him in their unit there, will require negative air pressure room. They did review notes from [facility] dialysis, they did want this patient tested for tuberculosis for some reason. Will make sure staff is aware of this here. I did add on a quantiferon. Will transfer once we have done nurse to nurse, believe patient is stabilized enough that he can go via ground. About 9:35 a.m.: Dr. doran did call back, nursing staff had gotten the report that the patient was unresponsive. I reviewed with him that I had not received that information. Did review with him the course of events and concern for increased sedation but improved venous blood gas from the follow-up lab at 8:56 a.m.. PCO2 had improved. I will go back and check on the patient. He had wanted nitroglycerin drip started. He did find in prior notes from the last visit that the patient was DNR/DNI. I will ensure that the patient is stable enough to remain on BiPAP. From my initial evaluation, did not feel he needed to be intubated but would consider this if he is retaining CO2 and is worsening. In light of his definite DNR DNI, need to try to stabilize as best we can with BiPAP potentially. He has historically recently stabilized and done well with BiPAP but will recheck on patient. 9:45 a.m.: Dr. Doran did call back, reviewed with him that I am not finding this patient to be unresponsive. He repositioned himself in bed, is following commands. Did review with him the differential in the blood pressures between the 2 arms. We are initiating nitroglycerin but at a bit lower dose and will titrate up. Ambulance crew should be her shortly. We did discuss whether not this patient has capacity to make decision making and this definitely is a grade area. At this point, I think the patient is stable enough to remain on BiPAP for transfer. He really ultimately needs dialysis. <Nadege Romeo MD - Last Filed: 05/06/24 15:37> Time: 08:25 <Nadege Romeo MD - Last Filed: 05/06/24 15:37> Vital Signs Vital signs: Initial Vital Signs Pulse Rate 139 H 05/06/24 08:04 Respiratory Rate 35 H 05/06/24 08:04 Pulse Oximetry 100 05/06/24 08:04 Oxygen Delivery Method BiPAP 05/06/24 08:04 Fraction of Inspired Oxygen 60 05/06/24 08:04 Vital Signs Pulse Rate 139 H 05/06/24 08:04 Respiratory Rate 35 H 05/06/24 08:04 Pulse Oximetry 100 05/06/24 08:04 Oxygen Delivery Method BiPAP 05/06/24 08:04 Fraction of Inspired Oxygen 60 05/06/24 08:04 Temperature 96.0 F L 05/06/24 08:32 Pulse Rate 77 05/06/24 10:16 Respiratory Rate 23 05/06/24 10:16 Blood Pressure 154/101 H 05/06/24 10:16 Pulse Oximetry 99 05/06/24 10:16 Oxygen Delivery Method BiPAP 05/06/24 09:01 Fraction of Inspired Oxygen 40 05/06/24 08:30 <Linda Short MD - Last Filed: 05/11/24 00:02> Initial Vital Signs Pulse Rate 139 H 05/06/24 08:04 Respiratory Rate 35 H 05/06/24 08:04 Pulse Oximetry 100 05/06/24 08:04 Oxygen Delivery Method BiPAP 05/06/24 08:04 Fraction of Inspired Oxygen 60 05/06/24 08:04 Vital Signs Pulse Rate 139 H 05/06/24 08:04 Respiratory Rate 35 H 05/06/24 08:04 Pulse Oximetry 100 05/06/24 08:04 Oxygen Delivery Method BiPAP 05/06/24 08:04 Fraction of Inspired Oxygen 60 05/06/24 08:04 Temperature 96.0 F L 05/06/24 08:32 Pulse Rate 77 05/06/24 10:16 Respiratory Rate 23 05/06/24 10:16 Blood Pressure 154/101 H 05/06/24 10:16 Pulse Oximetry 99 05/06/24 10:16 Oxygen Delivery Method BiPAP 05/06/24 09:01 Fraction of Inspired Oxygen 40 05/06/24 08:30 <Nadege Romeo MD - Last Filed: 05/06/24 15:37> Medications Administered Medications: Discontinued Medications Generic Name Dose Route Start Last Admin Trade Name Freq PRN Reason Stop Dose Admin Albuterol/Ipratropium 1 neb 05/06/24 08:08 05/06/24 09:47 Iprat-Albut 0.5-2.5 Mg/3 Ml [facility] 05/06/24 08:09 Not Given ONCE ONE Furosemide 80 mg 05/06/24 08:12 05/06/24 08:21 Furosemide 10 Mg/Ml Inj IVP 05/06/24 08:13 80 mg ONCE ONE Administration Nitroglycerin/Dextrose 25,000 mcg in 250 mls @ 3 mls/hr 05/06/24 09:33 05/06/24 10:02 Nitroglycerin/Dextrose IVPB 10 mcg/min .TITRATE PRN 6 mls/hr Infusion Protocol 5 MCG/MIN Lorazepam 0.5 mg 05/06/24 08:04 05/06/24 08:18 Lorazepam 2 Mg/Ml Inj IVP 0.5 mg Q1H PRN Administration aggitation Methylprednisolone Sodium Succinate 125 mg 05/06/24 08:08 05/06/24 08:18 Methylprednisolone Sod Succ 62.5 Mg/Ml (125) IVP 05/06/24 08:09 125 mg ONCE ONE Administration <Linda Short MD - Last Filed: 05/11/24 00:02> Discontinued Medications Generic Name Dose Route Start Last Admin Trade Name Zuleika PRN Reason Stop Dose Admin Albuterol/Ipratropium 1 neb 05/06/24 08:08 05/06/24 09:47 Iprat-Albut 0.5-2.5 Mg/3 Ml [facility] 05/06/24 08:09 Not Given ONCE ONE Furosemide 80 mg 05/06/24 08:12 05/06/24 08:21 Furosemide 10 Mg/Ml Inj IVP 05/06/24 08:13 80 mg ONCE ONE Administration Nitroglycerin/Dextrose 25,000 mcg in 250 mls @ 3 mls/hr 05/06/24 09:33 05/06/24 10:02 Nitroglycerin/Dextrose IVPB 10 mcg/min .TITRATE PRN 6 mls/hr Infusion Protocol 5 MCG/MIN Lorazepam 0.5 mg 05/06/24 08:04 05/06/24 08:18 Lorazepam 2 Mg/Ml Inj IVP 0.5 mg Q1H PRN Administration aggitation Methylprednisolone Sodium Succinate 125 mg 05/06/24 08:08 05/06/24 08:18 Methylprednisolone Sod Succ 62.5 Mg/Ml (125) IVP 05/06/24 08:09 125 mg ONCE ONE Administration <Nadege Romeo MD - Last Filed: 05/06/24 15:37> Medical Decision Making Lab Data Lab results reviewed: Yes I reviewed the patient's lab results <Nadege Romeo MD - Last Filed: 05/06/24 15:37> Labs: Lab Results 05/06/24 05/06/24 05/06/24 Range/Units 08:03 08:06 08:33 WBC 15.84 H (4.50-11.00) K/uL RBC 3.10 L (4.30-5.90) m/uL Hgb 10.1 L (13.5-17.5) gm/dL Hct 33.6 L (37.0-53.0) % MCV 108 H (80-100) fL MCH 33 (26-34) pg MCHC 30 L (32-36) gm/dL RDW Coeff of Martir 13.1 (11.5-15.5) % Plt Count 322 (140-440) K/uL Neut % (Auto) 43.0 (42.0-72.0) % Lymph % (Auto) 41.0 (20-44) % Bartholomew % (Auto) 9.2 (0.0-11.0) % Eos % (Auto) 5.3 (0.0-7.0) % Baso % (Auto) 0.8 (0.0-3.0) % Neut # (Auto) 6.80 (1.7-7.0) K/uL Lymph # (Auto) 6.50 H (0.90-2.90) K/uL Bartholomew # (Auto) 1.50 H (0.00-0.90) K/UL Eos # (Auto) 0.80 H (0.00-0.50) K/uL Baso # (Auto) 0.10 (0.00-0.30) K/uL Abs Immat Gran (auto) 0.10 (0.00-0.30) K/uL Imm/Tot Granulo (auto) 0.7 % VBG pH 7.024 L* (7.32-7.43) VBG pCO2 67 H* (40-50) mmHG VBG pO2 39.0 (25-47) mmHG VBG HCO3 17 L (21-28) mmol/L Sodium 145 (135-149) mmol/L Potassium 6.0 H (3.6-5.1) mmol/L Chloride 113 (96-114) mmol/L Carbon Dioxide 15 L (20-32) mmol/L Anion Gap 17 H (7-15) mEq/L BUN 73 H (7-30) mg/dL Creatinine 8.4 H (0.5-1.5) mg/dL Estimated Creat Clear 7.24 Estimated GFR 7 ml/min Glucose 214 H (60-115) mg/dL Lactate 3.8 H (0.5-1.9) mmol/L Calcium 8.2 L (8.4-10.6) mg/dL Troponin I 0.04 (0.01-0.04) ng/mL NT-Pro-B Natriuret Pep 05926 pg/mL TB Test (QFT) Gold Plus (Negative) TB Test (QFT) Nil IU/mL TB Test Mitogen - Nil IU/mL TB Test (QFT) +TB1 -NIL (<=0.34) IU/mL TB Test (QFT) +TB2 -NIL (<=0.34) IU/mL Lab Acknowledgement New Spec Needed POC Troponin I 0.05 H (0.01-0.04) ng/ml 05/06/24 05/06/24 Range/Units 08:56 09:05 WBC (4.50-11.00) K/uL RBC (4.30-5.90) m/uL Hgb (13.5-17.5) gm/dL Hct (37.0-53.0) % MCV (80-100) fL MCH (26-34) pg MCHC (32-36) gm/dL RDW Coeff of Martir (11.5-15.5) % Plt Count (140-440) K/uL Neut % (Auto) (42.0-72.0) % Lymph % (Auto) (20-44) % Bartholomew % (Auto) (0.0-11.0) % Eos % (Auto) (0.0-7.0) % Baso % (Auto) (0.0-3.0) % Neut # (Auto) (1.7-7.0) K/uL Lymph # (Auto) (0.90-2.90) K/uL Bartholomew # (Auto) (0.00-0.90) K/UL Eos # (Auto) (0.00-0.50) K/uL Baso # (Auto) (0.00-0.30) K/uL Abs Immat Gran (auto) (0.00-0.30) K/uL Imm/Tot Granulo (auto) % VBG pH 7.140 L* (7.32-7.43) VBG pCO2 52 H (40-50) mmHG VBG pO2 63.8 H (25-47) mmHG VBG HCO3 18 L (21-28) mmol/L Sodium (135-149) mmol/L Potassium (3.6-5.1) mmol/L Chloride (96-114) mmol/L Carbon Dioxide (20-32) mmol/L Anion Gap (7-15) mEq/L BUN (7-30) mg/dL Creatinine (0.5-1.5) mg/dL Estimated Creat Clear Estimated GFR ml/min Glucose (60-115) mg/dL Lactate (0.5-1.9) mmol/L Calcium (8.4-10.6) mg/dL Troponin I (0.01-0.04) ng/mL NT-Pro-B Natriuret Pep pg/mL TB Test (QFT) Gold Plus Negative (Negative) TB Test (QFT) Nil 0.01 IU/mL TB Test Mitogen - Nil 6.58 IU/mL TB Test (QFT) +TB1 -NIL 0.00 (<=0.34) IU/mL TB Test (QFT) +TB2 -NIL 0.00 (<=0.34) IU/mL Lab Acknowledgement POC Troponin I (0.01-0.04) ng/ml <Linda Short MD - Last Filed: 05/11/24 00:02> Lab Results 05/06/24 05/06/24 05/06/24 Range/Units 08:03 08:06 08:33 WBC 15.84 H (4.50-11.00) K/uL RBC 3.10 L (4.30-5.90) m/uL Hgb 10.1 L (13.5-17.5) gm/dL Hct 33.6 L (37.0-53.0) % MCV 108 H (80-100) fL MCH 33 (26-34) pg MCHC 30 L (32-36) gm/dL RDW Coeff of Martir 13.1 (11.5-15.5) % Plt Count 322 (140-440) K/uL Neut % (Auto) 43.0 (42.0-72.0) % Lymph % (Auto) 41.0 (20-44) % Bartholomew % (Auto) 9.2 (0.0-11.0) % Eos % (Auto) 5.3 (0.0-7.0) % Baso % (Auto) 0.8 (0.0-3.0) % Neut # (Auto) 6.80 (1.7-7.0) K/uL Lymph # (Auto) 6.50 H (0.90-2.90) K/uL Bartholomew # (Auto) 1.50 H (0.00-0.90) K/UL Eos # (Auto) 0.80 H (0.00-0.50) K/uL Baso # (Auto) 0.10 (0.00-0.30) K/uL Abs Immat Gran (auto) 0.10 (0.00-0.30) K/uL Imm/Tot Granulo (auto) 0.7 % VBG pH 7.024 L* (7.32-7.43) VBG pCO2 67 H* (40-50) mmHG VBG pO2 39.0 (25-47) mmHG VBG HCO3 17 L (21-28) mmol/L Sodium 145 (135-149) mmol/L Potassium 6.0 H (3.6-5.1) mmol/L Chloride 113 (96-114) mmol/L Carbon Dioxide 15 L (20-32) mmol/L Anion Gap 17 H (7-15) mEq/L BUN 73 H (7-30) mg/dL Creatinine 8.4 H (0.5-1.5) mg/dL Estimated Creat Clear 7.24 Estimated GFR 7 ml/min Glucose 214 H (60-115) mg/dL Lactate 3.8 H (0.5-1.9) mmol/L Calcium 8.2 L (8.4-10.6) mg/dL Troponin I 0.04 (0.01-0.04) ng/mL NT-Pro-B Natriuret Pep 63809 pg/mL TB Test (QFT) Gold Plus (Negative) TB Test (QFT) Nil IU/mL TB Test Mitogen - Nil IU/mL TB Test (QFT) +TB1 -NIL (<=0.34) IU/mL TB Test (QFT) +TB2 -NIL (<=0.34) IU/mL Lab Acknowledgement New Spec Needed POC Troponin I 0.05 H (0.01-0.04) ng/ml 05/06/24 05/06/24 Range/Units 08:56 09:05 WBC (4.50-11.00) K/uL RBC (4.30-5.90) m/uL Hgb (13.5-17.5) gm/dL Hct (37.0-53.0) % MCV (80-100) fL MCH (26-34) pg MCHC (32-36) gm/dL RDW Coeff of Martir (11.5-15.5) % Plt Count (140-440) K/uL Neut % (Auto) (42.0-72.0) % Lymph % (Auto) (20-44) % Bartholomew % (Auto) (0.0-11.0) % Eos % (Auto) (0.0-7.0) % Baso % (Auto) (0.0-3.0) % Neut # (Auto) (1.7-7.0) K/uL Lymph # (Auto) (0.90-2.90) K/uL Bartholomew # (Auto) (0.00-0.90) K/UL Eos # (Auto) (0.00-0.50) K/uL Baso # (Auto) (0.00-0.30) K/uL Abs Immat Gran (auto) (0.00-0.30) K/uL Imm/Tot Granulo (auto) % VBG pH 7.140 L* (7.32-7.43) VBG pCO2 52 H (40-50) mmHG VBG pO2 63.8 H (25-47) mmHG VBG HCO3 18 L (21-28) mmol/L Sodium (135-149) mmol/L Potassium (3.6-5.1) mmol/L Chloride (96-114) mmol/L Carbon Dioxide (20-32) mmol/L Anion Gap (7-15) mEq/L BUN (7-30) mg/dL Creatinine (0.5-1.5) mg/dL Estimated Creat Clear Estimated GFR ml/min Glucose (60-115) mg/dL Lactate (0.5-1.9) mmol/L Calcium (8.4-10.6) mg/dL Troponin I (0.01-0.04) ng/mL NT-Pro-B Natriuret Pep pg/mL TB Test (QFT) Gold Plus Negative (Negative) TB Test (QFT) Nil 0.01 IU/mL TB Test Mitogen - Nil 6.58 IU/mL TB Test (QFT) +TB1 -NIL 0.00 (<=0.34) IU/mL TB Test (QFT) +TB2 -NIL 0.00 (<=0.34) IU/mL Lab Acknowledgement POC Troponin I (0.01-0.04) ng/ml <Nadege Romeo MD - Last Filed: 05/06/24 15:37> Imaging Data Chest x-ray: Attestation: I have reviewed the pertinent imaging results. <Nadege Thompson MD - Last Filed: 05/06/24 15:37> My impression: I believe there is fluid overload. <Nadege Romeo MD - Last Filed: 05/06/24 15:37> Radiologist's impression: Patient: BARON DUENAS Facility:?[facility] Patient ID:?[id number] Site Patient ID:?[id number]. Site :?[id number] Study:?XRay-Chest 1V PORTABLE-05/06/2024 8:15:59 AM Ordering Physician:?Han Mckeon Final Report: INDICATION: Respiratory distress TECHNIQUE: Chest 1 views. COMPARISON: Chest radiograph 04/25/2024. FINDINGS: Cardiovasculature and mediastinum: Borderline cardiomegaly is stable. Unremarkable mediastinum. Right IJ central venous catheter with tip in the lower SVC. Lungs and pleural spaces: Lung apices are obscured by the head. Interstitial prominence is slightly decreased compared to prior. No pneumothorax or pleural effusion. Bones and soft tissues: Old right rib fractures. IMPRESSION: Interstitial prominence is slightly decreased compared to prior, and likely represents moderate pulmonary edema or atypical infection. Right central venous catheter with tip in the lower SVC. Dictated by Naima Patterson MD @ 05/06/2024 8:19:28 AM (Electronic Signature) <Nadege Romeo MD - Last Filed: 05/06/24 15:37> ECG Data Attestation: I personally reviewed and interpreted this ECG as follows: (Sinus tachycardia, 131 beats per minute, right axis deviation, no noted ischemia, some artifact noted.) <Nadege Romeo MD - Last Filed: 05/06/24 15:37> Prior ECG tracings: available for review (EKG from 04/25/2020 for actually had a higher heart rate of 147, otherwise similar.) <Nadege Romeo MD - Last Filed: 05/06/24 15:37> Critical Care Time Critical Care Time Total Critical Care Time in Minutes: 120 <Nadege Romeo MD - Last Filed: 05/06/24 15:37> Discharge Plan Discharge Clinical Impression: Stage 4 chronic kidney disease, Acute respiratory failure, Dialysis patient Pulmonary edema Qualifiers: Chronicity: acute Qualified Code(s): J81.0 - Acute pulmonary edema <Linda Short MD - Last Filed: 05/11/24 00:02> Patient Disposition: Xfer Other <Linda Short MD - Last Filed: 05/11/24 00:02> Discharge Location: [facility] <Linda Short MD - Last Filed: 05/11/24 00:02> Condition: Guarded <Linda Short MD - Last Filed: 05/11/24 00:02> Prescriptions: No Action carvedilol 12.5 mg tablet 12.5 mg PO BID amlodipine 5 mg tablet 5 mg PO DAILY <Linda Short MD - Last Filed: 05/11/24 00:02> Stand Alone Forms: [facility] Info Instructions <Linda Short MD - Last Filed: 05/11/24 00:02>
[2024-05-06] MEDS: METHYLPREDNISOLONE SOD SUCC 62.5 MG/ML (125) 125 MG IVP (08:18)
[2024-05-06] MEDS: LORazepam 2 MG/ML inj 0.5 MG IVP (08:18)
[2024-05-06] MEDS: FUROSEMIDE 10 MG/ML inj 80 MG IVP (08:21)
[2024-05-06 08:46] LABS: Lactate* 3.8 mmol/L (0.5-1.9); pH VBG 7.024 (7.32-7.43)
[2024-05-06 08:47] LABS: HCO3 VBG 17 mmol/L (21-28); PCO2 VBG 67 mmHG (40-50)
[2024-05-06 08:48] LABS: Basophils Percent Auto 0.8 % (0.0-3.0); Eosinophils Percent Auto 5.3 % (0.0-7.0); Hematocrit 33.6 % (37.0-53.0); Hemoglobin* 10.1 gm/dL (13.5-17.5); Immature Granulocytes Pct Auto 0.7 %; Mean Corpuscular HGB Conc 30 gm/dL (32-36); Mean Corpuscular Hemoglobin 33 pg (26-34); Mean Corpuscular Volume 108 fL (80-100); Monocytes Percent Auto 9.2 % (0.0-11.0); Platelet Count* 322 K/uL (140-440); RDW Coefficient of Variation % 13.1 % (11.5-15.5); White Blood Count* 15.84 K/uL (4.50-11.00)
[2024-05-06 08:51] LABS: Chloride* 113 mmol/L (96-114); Sodium* 145 mmol/L (135-149)
[2024-05-06 08:52] LABS: Slide Review Reflex No
[2024-05-06 08:53] LABS: Lab Add On Test New Spec Needed
[2024-05-06 08:54] LABS: Anion Gap 17 mEq/L (7-15); Blood Urea Nitrogen* 73 mg/dL (7-30); Carbon Dioxide* 15 mmol/L (20-32); Creatinine* 8.4 mg/dL (0.5-1.5); Est. Creatinine Clearance* 7.24; Estimated Glomerular Filt Rate 7 ml/min
[2024-05-06 08:55] LABS: Calcium* 8.2 mg/dL (8.4-10.6); Glucose* 214 mg/dL (60-115)
[2024-05-06 09:01] LABS: HCO3 VBG 18 mmol/L (21-28); PCO2 VBG 52 mmHG (40-50); PO2 VBG 63.8 mmHG (25-47)
[2024-05-06 09:05] LABS: NT Pro B Type NatriureticPept* 27700 pg/mL
[2024-05-06 09:06] LABS: Troponin I* 0.04 ng/mL (0.01-0.04)
[2024-05-06] MEDS: NITROGLYCERIN/DEXTROSE 25,000 MCG/250 ML BOTTLE 3 MCG IVPB (09:49)
[2024-05-06 09:52] LABS: Troponin, Point-of-Care* 0.05 ng/ml (0.01-0.04)
[2024-05-08 14:17] LABS: QuantiFERON Mitogen minus NIL 6.58 IU/mL; QuantiFERON NIL 0.01 IU/mL; Quantiferon TB Gold Plus Negative (Negative)
== END 2024-05-06 10:59 | disposition other institution (70) ==
LOC: ED 08:40
PROVIDERS: Family Medicine; Emergency Provider Family Medicine; PCP Family Medicine
DX: J96.90 Respiratory failure, unspecified, unspecified whether with hypoxia or hypercapnia (principal); N18.4 Chronic kidney disease, stage 4 (severe); Z99.2 Dependence on renal dialysis
CPT/HCPCS: 36415; 71045; 80048; 82803; 82962; 83605; 83880; 84484; 85025; 86480; 87631; 93005; 94660; 94761; 99284; 99291; 99292; J1940; J2060; J2919

== ENCOUNTER 2024-05-06 10:12 | Outpatient (CLI) | payer MEDICAID, SELFPAY | END 2024-05-06 10:13 | disposition home or self-care (01) | LOC: AMB 05-07 04:48 | PROVIDERS: PCP Family Medicine; Visit Provider Family Medicine | DX: J96.90 Respiratory failure, unspecified, unspecified whether with hypoxia or hypercapnia (principal) | CPT/HCPCS: A0425; A0427 ==

== ENCOUNTER 2024-05-17 06:43 | Outpatient (CLI) | payer MEDICAID, SELFPAY | END 2024-05-17 06:44 | disposition home or self-care (01) | LOC: AMB 05-18 15:03 | PROVIDERS: Visit Provider Family Medicine | DX: R06.09 Other forms of dyspnea (principal) | CPT/HCPCS: A0425; A0427 ==

== ENCOUNTER 2024-05-17 06:43 | Outpatient (CLI) | payer MEDICAID, SELFPAY | END 2024-05-17 06:44 | disposition home or self-care (01) | LOC: AMB 05-30 08:54 | PROVIDERS: Visit Provider Family Medicine | DX: R06.09 Other forms of dyspnea (principal) | CPT/HCPCS: A0425; A0427 ==

== ENCOUNTER 2024-05-17 07:18 | Emergency (ER) | payer MEDICAID, SELFPAY ==
[2024-05-17] VITALS (78 sets, daily range): BP systolic 108–207; BP diastolic 91–124; PULSE 83–136; RESP 44; O2SAT 80–95
--- NOTE | 2024-05-17 07:29 | CRLHL7_ITS ---
For Patients: As a result of the Century Cures Act, medical imaging exams and procedure reports are released immediately into your electronic medical record. You may view this report before your referring provider. If you have questions, please contact your health care provider. INDICATION: Respiratory distress. TECHNIQUE: Chest 1 views. COMPARISON: X-ray chest May 06, 2024 FINDINGS/IMPRESSION: Abnormal airspace opacity in the right mid and lower zone is concerning for pneumonia. No significant effusion or pneumothorax. There is diffuse prominence of the interstitium, similar to previous x-ray and is again concerning for pulmonary edema. Right-sided central venous catheter is in place. Stable mild cardiomegaly. Dictated by De Valencia MD @ 05/17/2024 7:52:21 AM (Electronically Signed)
[2024-05-17 07:50] LABS: ABG PCO2 57 mmHG (35-45); Base Excess ABG -11.9 mmol/L (-3.0-3.0); Carboxyhemoglobin* 2.5 % (0.0-5.0); HCO3 ABG 18 mmol/L (21-28); Oxygen Saturation ABG 86 % (92-100); PO2 ABG 68.8 mmHG (80-105); TCO2 ABG 18 mmol/l (21-30)
--- NOTE | 2024-05-17 07:54 | ED_ITS ---
HPI - SOB/Dyspnea General Date Seen: 05/17/24 <Narayan Sher MD - Last Filed: 05/17/24 15:51> Chief Complaint: Shortness of Breath/Dyspnea <Narayan Sher MD - Last Filed: 05/17/24 15:51> Stated Complaint: Difficulty breathing <Narayan Sher MD - Last Filed: 05/17/24 15:51> Time Seen by Provider: 05/17/24 07:25 <Narayan Sher MD - Last Filed: 05/17/24 15:51> Source: patient, EMS, RN notes reviewed and old records reviewed <Narayan Sher MD - Last Filed: 05/17/24 15:51> Mode of arrival: EMS <Narayan Sher MD - Last Filed: 05/17/24 15:51> Limitations: altered mental status <Narayan Sher MD - Last Filed: 05/17/24 15:51> History of Present Illness HPI Narrative: Patient is a 63-year-old gentleman who presents here with acute respiratory distress, ambulance was called by a known person, he was found to be saturating at approximately 60-70% BiPAP was started and he was brought in here to the hospital. He recently left [facility] in [place] on the April against medical advice after he was transferred from this institution to [place], with acute hypoxic respiratory failure. He has a history of end- stage renal disease, and receives dialysis. He tells me he has been going to his dialysis appointments and he had an appointment today but he did go to it because he could get a ride. Typically he goes into respiratory distress when he is fluid overloaded, combined with his severe COPD. He is very noncompliant, in the past there has been a DNR DNI on his chart, but he has also been intubated in the past also. He is really not cooperative at all here. Wanting to lay on his side, telling me he wants to , and yet he can not breathe he is currently on BiPAP, with a saturation of 88% <Narayan Sher MD - Last Filed: 05/17/24 15:51> Related Data Home Medications: Home Medications ?Medication ?Instructions ?Recorded ?Confirmed carvedilol 12.5 mg tablet 6.25 mg PO BID 05/18/23 05/17/24 aspirin 81 mg chewable tablet 1 tab PO DAILY 05/17/24 05/17/24 atorvastatin 40 mg tablet 40 mg PO QPM 05/17/24 05/17/24 bumetanide 2 mg tablet 2 mg PO DAILY 05/17/24 05/17/24 multivitamin with folic acid 400 1 tab PO DAILY 05/17/24 05/17/24 mcg tablet (Daily-Ernestina (with folic acid)) <Narayan Sher MD - Last Filed: 05/17/24 15:51> Allergies/Adverse Reactions: Allergies Allergy/AdvReac Type Severity Reaction Status Date / Time ranitidine AdvReac itch Verified 05/17/24 07:38 <Narayan Sher MD - Last Filed: 05/17/24 15:51> Review of Systems Status of ROS: Reports: 10 or more systems reviewed and unremarkable except as noted in History and below <Narayan Sher MD - Last Filed: 05/17/24 15:51> [facility] Medical History: Medical History Altered mental status ?R41.82 - Altered mental status, unspecified (ICD-10) Non-STEMI (non-ST elevated myocardial infarction) ?I21.4 - Non-ST elevation (NSTEMI) myocardial infarction (ICD-10) Smoking ?F17.200 - Nicotine dependence, unspecified, uncomplicated (ICD-10) Alcohol use disorder ?F10.90 - Alcohol use, unspecified, uncomplicated (ICD-10) COPD (chronic obstructive pulmonary disease) ?J44.9 - Chronic obstructive pulmonary disease, unspecified (ICD-10) Coronary artery disease ?I25.10 - Atherosclerotic heart disease of [place] coronary artery without angina pectoris (ICD-10) Stage 4 chronic kidney disease ?N18.4 - Chronic kidney disease, stage 4 (severe) (ICD-10) Pulmonary hypertension ?I27.20 - Pulmonary hypertension, unspecified (ICD-10) Right heart failure ?I50.810 - Right heart failure, unspecified (ICD-10) Heart failure with reduced ejection fraction ?I50.20 - Unspecified systolic (congestive) heart failure (ICD-10) <Narayan Sher MD - Last Filed: 05/17/24 15:51> Social History: Social History Narrative: Patient apparently lives in an apartment in [place]. Smokes a pack of cigarettes a day. He has a history of alcohol abuse but current consumption is unknown. Unable to discuss plan of care or goals of care What is your current living situation?: unable to answer Problems where you live: unable to answer Problems where you live details: unknown In the past 12 months, utilities in danger of being shut off: unable to answer In past 12 months, lack of transportation kept you from medical appts, meetings, work, or getting things needed for daily living: unable to answer In the past 12 mos, have been you worried that your food would run out before you had money to buy more?: unable to answer In the past 12 mos, the food you bought just didn't last and you didn't have money to buy more?: unable to answer Highest level of school completed/degree received: don't know Smoking Status: Current every day smoker Do you use any of these nicotine containing products: None Second hand tobacco smoke exposure: Yes How often do you have a drink containing alcohol: 4 or more times a week AUDIT-C Alcohol total score: 4 Non-prescribed substance use: denies use Non-prescribed substance use details: unknown How often does anyone, including family, friends and others, physically hurt you : unable to answer How often does anyone, including family, friends and others, insult or talk down to you: unable to answer How often does anyone, including family, friends and others, threaten you with h arm: unable to answer How often does anyone, including family, friends and others, scream or curse at you: unable to answer service: No <Narayan Sher MD - Last Filed: 05/17/24 15:51> Exam Narrative: Exam Narrative: Patient is in respiratory distress in room 8, BiPAP is on. Pupils equal round reactive to light, GCS is 13/15 moving all extremities, chest shows very poor air entry, with occasional crackles. Heart sounds are distant faint. Abdomen is soft, he moves all extremities independently and well. He has a port in his right upper chest <Narayan Sher MD - Last Filed: 05/17/24 15:51> Const: Vital Signs, click to edit/add: Vital Signs - 24 hr 05/17/24 07:20 05/17/24 07:29 05/17/24 08:05 Pulse Rate Pulse Rate [Pulse Oximeter] 136 H Respiratory Rate 44 H Blood Pressure Blood Pressure [Le ft Upper Arm] 207/124 H Pulse Oximetry 80 L 82 L 89 Oxygen Delivery Me thod High Flow Nasal Ca nnula 05/17/24 08:06 05/17/24 08:10 05/17/24 08:11 Pulse Rate Pulse Rate [Pulse Oximeter] Respiratory Rate Blood Pressure Blood Pressure [Le ft Upper Arm] Pulse Oximetry 91 92 91 Oxygen Delivery Me thod 05/17/24 08:18 05/17/24 08:20 05/17/24 08:21 Pulse Rate Pulse Rate [Pulse Oximeter] Respiratory Rate Blood Pressure Blood Pressure [Le ft Upper Arm] Pulse Oximetry 90 90 90 Oxygen Delivery Me thod 05/17/24 08:30 05/17/24 08:31 05/17/24 08:40 Pulse Rate Pulse Rate [Pulse Oximeter] Respiratory Rate Blood Pressure Blood Pressure [Le ft Upper Arm] Pulse Oximetry 90 90 89 Oxygen Delivery Me thod 05/17/24 08:41 05/17/24 08:50 05/17/24 08:51 Pulse Rate Pulse Rate [Pulse Oximeter] Respiratory Rate Blood Pressure Blood Pressure [Le ft Upper Arm] Pulse Oximetry 89 90 92 Oxygen Delivery Me thod 05/17/24 09:00 05/17/24 09:01 05/17/24 09:10 Pulse Rate Pulse Rate [Pulse Oximeter] Respiratory Rate Blood Pressure Blood Pressure [Le ft Upper Arm] Pulse Oximetry 91 91 93 Oxygen Delivery Me thod 05/17/24 09:11 05/17/24 09:12 05/17/24 09:20 Pulse Rate 118 H Pulse Rate [Pulse Oximeter] Respiratory Rate Blood Pressure Blood Pressure [Le ft Upper Arm] Pulse Oximetry 93 93 89 Oxygen Delivery Me thod 05/17/24 09:21 05/17/24 09:30 05/17/24 09:31 Pulse Rate 116 H 112 H 106 H Pulse Rate [Pulse Oximeter] Respiratory Rate Blood Pressure 119/95 H 108/91 H Blood Pressure [Le ft Upper Arm] Pulse Oximetry 88 87 L 88 Oxygen Delivery Me thod 05/17/24 09:40 05/17/24 09:41 05/17/24 09:50 Pulse Rate 107 H 107 H 109 H Pulse Rate [Pulse Oximeter] Respiratory Rate Blood Pressure 121/97 H Blood Pressure [Le ft Upper Arm] Pulse Oximetry 89 89 91 Oxygen Delivery Me thod 05/17/24 09:51 05/17/24 10:00 05/17/24 10:01 Pulse Rate 106 H 103 H 102 H Pulse Rate [Pulse Oximeter] Respiratory Rate Blood Pressure 111/99 H 121/96 H Blood Pressure [Le ft Upper Arm] Pulse Oximetry 91 91 91 Oxygen Delivery Me thod 05/17/24 10:10 05/17/24 10:11 05/17/24 10:20 Pulse Rate 103 H 106 H 101 H Pulse Rate [Pulse Oximeter] Respiratory Rate Blood Pressure 128/101 H Blood Pressure [Le ft Upper Arm] Pulse Oximetry 93 92 93 Oxygen Delivery Me thod 05/17/24 10:21 05/17/24 10:30 05/17/24 10:31 Pulse Rate 100 96 100 Pulse Rate [Pulse Oximeter] Respiratory Rate Blood Pressure 126/101 H 137/112 H Blood Pressure [Le ft Upper Arm] Pulse Oximetry 93 95 95 Oxygen Delivery Me thod 05/17/24 10:40 05/17/24 10:41 05/17/24 10:50 Pulse Rate 102 H 101 H 107 H Pulse Rate [Pulse Oximeter] Respiratory Rate Blood Pressure 147/112 H Blood Pressure [Le ft Upper Arm] Pulse Oximetry 94 95 94 Oxygen Delivery Me thod 05/17/24 10:51 05/17/24 11:00 05/17/24 11:01 Pulse Rate 104 H 110 H 106 H Pulse Rate [Pulse Oximeter] Respiratory Rate Blood Pressure 136/107 H 129/111 H Blood Pressure [Le ft Upper Arm] Pulse Oximetry 94 90 91 Oxygen Delivery Me thod 05/17/24 11:10 05/17/24 11:11 05/17/24 11:20 Pulse Rate 106 H 100 102 H Pulse Rate [Pulse Oximeter] Respiratory Rate Blood Pressure 133/111 H Blood Pressure [Le ft Upper Arm] Pulse Oximetry 95 93 92 Oxygen Delivery Me thod 05/17/24 11:21 05/17/24 11:22 05/17/24 11:30 Pulse Rate 101 H 99 Pulse Rate [Pulse Oximeter] Respiratory Rate Blood Pressure 141/111 H Blood Pressure [Le ft Upper Arm] Pulse Oximetry 92 92 92 Oxygen Delivery Me thod 05/17/24 11:31 05/17/24 11:40 05/17/24 11:41 Pulse Rate Pulse Rate [Pulse Oximeter] Respiratory Rate Blood Pressure Blood Pressure [Le ft Upper Arm] Pulse Oximetry 92 93 93 Oxygen Delivery Me thod 05/17/24 11:50 05/17/24 11:51 05/17/24 12:00 Pulse Rate Pulse Rate [Pulse Oximeter] Respiratory Rate Blood Pressure Blood Pressure [Le ft Upper Arm] Pulse Oximetry 94 94 92 Oxygen Delivery Me thod 05/17/24 12:01 05/17/24 12:10 05/17/24 12:11 Pulse Rate Pulse Rate [Pulse Oximeter] Respiratory Rate Blood Pressure Blood Pressure [Le ft Upper Arm] Pulse Oximetry 92 93 92 Oxygen Delivery Me thod 05/17/24 12:20 05/17/24 12:21 05/17/24 12:30 Pulse Rate Pulse Rate [Pulse Oximeter] Respiratory Rate Blood Pressure Blood Pressure [Le ft Upper Arm] Pulse Oximetry 92 91 91 Oxygen Delivery Me thod 05/17/24 12:31 05/17/24 12:40 05/17/24 12:41 Pulse Rate Pulse Rate [Pulse Oximeter] Respiratory Rate Blood Pressure Blood Pressure [Le ft Upper Arm] Pulse Oximetry 91 92 92 Oxygen Delivery Me thod 05/17/24 12:50 05/17/24 12:51 05/17/24 13:00 Pulse Rate Pulse Rate [Pulse Oximeter] Respiratory Rate Blood Pressure Blood Pressure [Le ft Upper Arm] Pulse Oximetry 92 92 92 Oxygen Delivery Me thod 05/17/24 13:01 05/17/24 13:10 05/17/24 13:12 Pulse Rate Pulse Rate [Pulse Oximeter] Respiratory Rate Blood Pressure Blood Pressure [Le ft Upper Arm] Pulse Oximetry 93 93 93 Oxygen Delivery Me thod 05/17/24 13:20 05/17/24 13:21 05/17/24 13:22 Pulse Rate Pulse Rate [Pulse Oximeter] Respiratory Rate Blood Pressure Blood Pressure [Le ft Upper Arm] Pulse Oximetry 94 94 94 Oxygen Delivery Me thod 05/17/24 13:30 05/17/24 13:31 12/23/24 13:40 Pulse Rate 83 87 95 Pulse Rate [Pulse Oximeter] Respiratory Rate Blood Pressure 144/103 H Blood Pressure [Le ft Upper Arm] Pulse Oximetry 94 94 93 Oxygen Delivery Me thod 05/17/24 13:41 05/17/24 13:50 05/17/24 13:51 Pulse Rate 94 87 85 Pulse Rate [Pulse Oximeter] Respiratory Rate Blood Pressure 145/110 H 145/104 H Blood Pressure [Le ft Upper Arm] Pulse Oximetry 95 93 93 Oxygen Delivery Me thod <Narayan Sher MD - Last Filed: 05/17/24 15:51> Vital Signs, click to edit/add: Vital Signs - 24 hr 05/17/24 07:20 05/17/24 07:29 05/17/24 08:05 Pulse Rate Pulse Rate [Pulse Oximeter] 136 H Respiratory Rate 44 H Blood Pressure Blood Pressure [Le ft Upper Arm] 207/124 H Pulse Oximetry 80 L 82 L 89 Oxygen Delivery Me thod High Flow Nasal Ca nnula 05/17/24 08:06 05/17/24 08:10 05/17/24 08:11 Pulse Rate Pulse Rate [Pulse Oximeter] Respiratory Rate Blood Pressure Blood Pressure [Le ft Upper Arm] Pulse Oximetry 91 92 91 Oxygen Delivery Me thod 05/17/24 08:18 05/17/24 08:20 05/17/24 08:21 Pulse Rate Pulse Rate [Pulse Oximeter] Respiratory Rate Blood Pressure Blood Pressure [Le ft Upper Arm] Pulse Oximetry 90 90 90 Oxygen Delivery Me thod 05/17/24 08:30 05/17/24 08:31 05/17/24 08:40 Pulse Rate Pulse Rate [Pulse Oximeter] Respiratory Rate Blood Pressure Blood Pressure [Le ft Upper Arm] Pulse Oximetry 90 90 89 Oxygen Delivery Me thod 05/17/24 08:41 05/17/24 08:50 05/17/24 08:51 Pulse Rate Pulse Rate [Pulse Oximeter] Respiratory Rate Blood Pressure Blood Pressure [Le ft Upper Arm] Pulse Oximetry 89 90 92 Oxygen Delivery Me thod 05/17/24 09:00 05/17/24 09:01 05/17/24 09:10 Pulse Rate Pulse Rate [Pulse Oximeter] Respiratory Rate Blood Pressure Blood Pressure [Le ft Upper Arm] Pulse Oximetry 91 91 93 Oxygen Delivery Me thod 05/17/24 09:11 05/17/24 09:12 05/17/24 09:20 Pulse Rate 118 H Pulse Rate [Pulse Oximeter] Respiratory Rate Blood Pressure Blood Pressure [Le ft Upper Arm] Pulse Oximetry 93 93 89 Oxygen Delivery Me thod 05/17/24 09:21 05/17/24 09:30 05/17/24 09:31 Pulse Rate 116 H 112 H 106 H Pulse Rate [Pulse Oximeter] Respiratory Rate Blood Pressure 119/95 H 108/91 H Blood Pressure [Le ft Upper Arm] Pulse Oximetry 88 87 L 88 Oxygen Delivery Me thod 05/17/24 09:40 05/17/24 09:41 05/17/24 09:50 Pulse Rate 107 H 107 H 109 H Pulse Rate [Pulse Oximeter] Respiratory Rate Blood Pressure 121/97 H Blood Pressure [Le ft Upper Arm] Pulse Oximetry 89 89 91 Oxygen Delivery Me thod 05/17/24 09:51 05/17/24 10:00 05/17/24 10:01 Pulse Rate 106 H 103 H 102 H Pulse Rate [Pulse Oximeter] Respiratory Rate Blood Pressure 111/99 H 121/96 H Blood Pressure [Le ft Upper Arm] Pulse Oximetry 91 91 91 Oxygen Delivery Me thod 05/17/24 10:10 05/17/24 10:11 05/17/24 10:20 Pulse Rate 103 H 106 H 101 H Pulse Rate [Pulse Oximeter] Respiratory Rate Blood Pressure 128/101 H Blood Pressure [Le ft Upper Arm] Pulse Oximetry 93 92 93 Oxygen Delivery Me thod 05/17/24 10:21 05/17/24 10:30 05/17/24 10:31 Pulse Rate 100 96 100 Pulse Rate [Pulse Oximeter] Respiratory Rate Blood Pressure 126/101 H 137/112 H Blood Pressure [Le ft Upper Arm] Pulse Oximetry 93 95 95 Oxygen Delivery Me thod 05/17/24 10:40 05/17/24 10:41 05/17/24 10:50 Pulse Rate 102 H 101 H 107 H Pulse Rate [Pulse Oximeter] Respiratory Rate Blood Pressure 147/112 H Blood Pressure [Le ft Upper Arm] Pulse Oximetry 94 95 94 Oxygen Delivery Me thod 05/17/24 10:51 05/17/24 11:00 05/17/24 11:01 Pulse Rate 104 H 110 H 106 H Pulse Rate [Pulse Oximeter] Respiratory Rate Blood Pressure 136/107 H 129/111 H Blood Pressure [Le ft Upper Arm] Pulse Oximetry 94 90 91 Oxygen Delivery Me thod 05/17/24 11:10 05/17/24 11:11 05/17/24 11:20 Pulse Rate 106 H 100 102 H Pulse Rate [Pulse Oximeter] Respiratory Rate Blood Pressure 133/111 H Blood Pressure [Le ft Upper Arm] Pulse Oximetry 95 93 92 Oxygen Delivery Me thod 05/17/24 11:21 05/17/24 11:22 05/17/24 11:30 Pulse Rate 101 H 99 Pulse Rate [Pulse Oximeter] Respiratory Rate Blood Pressure 141/111 H Blood Pressure [Le ft Upper Arm] Pulse Oximetry 92 92 92 Oxygen Delivery Me thod 05/17/24 11:31 05/17/24 11:40 05/17/24 11:41 Pulse Rate Pulse Rate [Pulse Oximeter] Respiratory Rate Blood Pressure Blood Pressure [Le ft Upper Arm] Pulse Oximetry 92 93 93 Oxygen Delivery Me thod 05/17/24 11:50 05/17/24 11:51 05/17/24 12:00 Pulse Rate Pulse Rate [Pulse Oximeter] Respiratory Rate Blood Pressure Blood Pressure [Le ft Upper Arm] Pulse Oximetry 94 94 92 Oxygen Delivery Me thod 05/17/24 12:01 05/17/24 12:10 05/17/24 12:11 Pulse Rate Pulse Rate [Pulse Oximeter] Respiratory Rate Blood Pressure Blood Pressure [Le ft Upper Arm] Pulse Oximetry 92 93 92 Oxygen Delivery Me thod 05/17/24 12:20 05/17/24 12:21 05/17/24 12:30 Pulse Rate Pulse Rate [Pulse Oximeter] Respiratory Rate Blood Pressure Blood Pressure [Le ft Upper Arm] Pulse Oximetry 92 91 91 Oxygen Delivery Me thod 05/17/24 12:31 05/17/24 12:40 05/17/24 12:41 Pulse Rate Pulse Rate [Pulse Oximeter] Respiratory Rate Blood Pressure Blood Pressure [Le ft Upper Arm] Pulse Oximetry 91 92 92 Oxygen Delivery Me thod 05/17/24 12:50 05/17/24 12:51 05/17/24 13:00 Pulse Rate Pulse Rate [Pulse Oximeter] Respiratory Rate Blood Pressure Blood Pressure [Le ft Upper Arm] Pulse Oximetry 92 92 92 Oxygen Delivery Me thod 05/17/24 13:01 05/17/24 13:10 05/17/24 13:12 Pulse Rate Pulse Rate [Pulse Oximeter] Respiratory Rate Blood Pressure Blood Pressure [Le ft Upper Arm] Pulse Oximetry 93 93 93 Oxygen Delivery Me thod 05/17/24 13:20 05/17/24 13:21 05/17/24 13:22 Pulse Rate Pulse Rate [Pulse Oximeter] Respiratory Rate Blood Pressure Blood Pressure [Le ft Upper Arm] Pulse Oximetry 94 94 94 Oxygen Delivery Me thod 05/17/24 13:30 05/17/24 13:31 05/17/24 13:40 Pulse Rate 83 87 95 Pulse Rate [Pulse Oximeter] Respiratory Rate Blood Pressure 144/103 H Blood Pressure [Le ft Upper Arm] Pulse Oximetry 94 94 93 Oxygen Delivery Me thod 05/17/24 13:41 05/17/24 13:50 05/17/24 13:51 Pulse Rate 94 87 85 Pulse Rate [Pulse Oximeter] Respiratory Rate Blood Pressure 145/110 H 145/104 H Blood Pressure [Le ft Upper Arm] Pulse Oximetry 95 93 93 Oxygen Delivery Me thod <Jaqui Dove MD - Last Filed: 05/17/24 14:22> Documenting provider has reviewed patient's vital signs: yes <Narayan Sher MD - Last Filed: 05/17/24 15:51> Course Course ED Course: And was signed out to me at the beginning of my shift. At that time he had received 4 mg of morphine IV, 80 mg of Lasix, 125 mg Solu-Medrol. Had had a DuoNeb in the ambulance per nurse report. He was on BiPAP with O2 at 55%, oxygen saturations at that time were at 88-90%. He was markedly hypertensive, nitroglycerin drip was started initially at 20, increased to 30, with improvement in his work of breathing. Chest x-ray by my review showed significant pulmonary edema as well as what appears to be a consolidation in the right lung, review of his records from last week at [place] show that there is concern for bronchogenic carcinoma in that area, but in looking at previous x- rays, the consolidated area looks significantly increased. Labs [place] [address], hemoglobin of 9 which is not far off of his baseline. INR is 1.2, D-dimer markedly elevated at 6, of uncertain significance given suspected cancer history. He certainly has other diagnoses that I think explain his respiratory distress. Initial arterial blood gas showed a pH of 7.1, pCO2 57. His potassium was 5.8, CO2 of 15, gap of 18. BUN of 60 and creatinine is 7.7. Blood sugar elevated at 322. Calcium was low at 7.9. CRP was normal at less than 0.5 [place] [address]. His drug screen was notable for marijuana, blood alcohol was negative. Point of care troponin was 0.05. He had an EKG which showed a sinus tachycardia, ventricular rate of 121 beats per minute. Voltages are somewhat large, no acute ST segment changes, unremarkable T-waves. After period of time on nitroglycerin drip and BiPAP, his blood pressure came down to about 120 systolic, O2 sats were steady at 90% and work of breathing was significantly diminished. His repeat gas shows a pH of 7.22, bicarb of 19, pCO2 of 48. I spoke with Dr. Aguilar, who was on-call for ICU at [facility]. He agrees with current management. We discussed antibiotics based on the appearance of the chest x-ray and will go ahead and give vanco and cefepime for hospital acquired pneumonia. Did obtain 1 blood culture, were not able to get enough blood for two. Waiting for transport to [facility]. Bed has been assigned but ambulance was called out and so we are waiting for transport still. He is markedly improved in terms of his respiratory status. He is still on BiPAP, but respiratory rate is near normal and O2 sat is 92% on 30% FiO2. His mentation is normal. He denies complaints right now. He tells me that he did miss dialysis, because his ride did not show up. I am going to have director of social services talk with him while we are waiting to see if we can help with making sure he has a ride reliably to dialysis. Patient transferred to [facility] without further event. Critical care time 60 minutes <Jaqui Dove MD - Last Filed: 05/17/24 14:22> Vital Signs Vital signs: Initial Vital Signs Respiratory Effort Labored, Short of Breath, Pursed Lip, Nasal Flaring, Accessory Muscle Use, Tripoding, Grunting, Tachypnea, Shallow Breathing, Cya nosis, Shortness of Breath at Re 05/17/24 07:19 Respiratory Depth Retractive 05/17/24 07:19 Respiratory Pattern Tachypnea, Gasping, Grunting, Short of Breath 05/17/24 07:19 Vital Signs Pulse Rate 136 H 05/17/24 07:20 Respiratory Rate 44 H 05/17/24 07:20 Blood Pressure 207/124 H 05/17/24 07:20 Pulse Oximetry 80 L 05/17/24 07:20 Oxygen Delivery Method High Flow Nasal Cannula 05/17/24 07:20 Pulse Rate 85 05/17/24 13:51 Respiratory Rate 44 H 05/17/24 07:20 Blood Pressure 145/104 H 05/17/24 13:51 Pulse Oximetry 93 05/17/24 13:51 Oxygen Delivery Method High Flow Nasal Cannula 05/17/24 07:20 <Narayan Sher MD - Last Filed: 05/17/24 15:51> Initial Vital Signs Respiratory Effort Labored, Short of Breath, Pursed Lip, Nasal Flaring, Accessory Muscle Use, Tripoding, Grunting, Tachypnea, Shallow Breathing, Cyanosis, Shortness of Breath at Re 05/17/24 07:19 Respiratory Depth Retractive 05/17/24 07:19 Respiratory Pattern Tachypnea, Gasping, Grunting, Short of Breath 05/17/24 07:19 Vital Signs Pulse Rate 136 H 05/17/24 07:20 Respiratory Rate 44 H 05/17/24 07:20 Blood Pressure 207/124 H 05/17/24 07:20 Pulse Oximetry 80 L 05/17/24 07:20 Oxygen Delivery Method High Flow Nasal Cannula 05/17/24 07:20 Pulse Rate 85 05/17/24 13:51 Respiratory Rate 44 H 05/17/24 07:20 Blood Pressure 145/104 H 05/17/24 13:51 Pulse Oximetry 93 05/17/24 13:51 Oxygen Delivery Method High Flow Nasal Cannula 05/17/24 07:20 <Jaqui Dove MD - Last Filed: 05/17/24 14:22> Medications Administered Medications: Discontinued Medications Generic Name Dose Route Start Last Admin Trade Name Freq PRN Reason Stop Dose Admin Albuterol/Ipratropium 1 neb 05/17/24 07:41 05/17/24 14:22 Iprat-Albut 0.5-2.5 Mg/3 Ml Neb 05/17/24 07:42 Not Given ONCE ONE Furosemide 80 mg 05/17/24 07:29 05/17/24 07:55 Furosemide 10 Mg/Ml Inj IVP 05/17/24 07:30 80 mg ONCE ONE Administration Nitroglycerin/Dextrose 25,000 mcg in 250 mls @ 3 mls/hr 05/17/24 07:48 05/17/24 14:15 Nitroglycerin/Dextrose IVPB 20 mcg/min .TITRATE PRN 12 mls/hr heart failure Infusion Protocol 5 MCG/MIN Vancomycin/PEG/NADA/Lysine/Water 1.25 gm in 250 mls @ 166.667 mls/hr 05/17/24 10:30 05/17/24 14:31 Vancomycin 1.25 Gm/250 Ml IVPB 05/17/24 11:59 Infused ONCE ONE Infusion Cefepime HCl 1 gm/ Sodium 100 mls @ 200 mls/hr 05/17/24 10:35 05/17/24 11:49 Chloride IVPB 05/17/24 11:04 Infused ONCE ONE Infusion Methylprednisolone Sodium Succinate 125 mg 05/17/24 07:29 05/17/24 07:58 Methylprednisolone Sod Succ 62.5 Mg/Ml (125) IVP 05/17/24 07:30 125 mg ONCE ONE Administration Morphine Sulfate 4 mg 05/17/24 07:53 05/17/24 08:02 Morphine 4 Mg/Ml Inj IVP 05/17/24 07:54 4 mg ONCE ONE Administration <Narayan Sher MD - Last Filed: 05/17/24 15:51> Discontinued Medications Generic Name Dose Route Start Last Admin Trade Name Freq PRN Reason Stop Dose Admin Albuterol/Ipratropium 1 neb 05/17/24 07:41 05/17/24 14:22 Iprat-Albut 0.5-2.5 Mg/3 Ml Neb 05/17/24 07:42 Not Given ONCE ONE Furosemide 80 mg 05/17/24 07:29 05/17/24 07:55 Furosemide 10 Mg/Ml Inj IVP 05/17/24 07:30 80 mg ONCE ONE Administration Nitroglycerin/Dextrose 25,000 mcg in 250 mls @ 3 mls/hr 05/17/24 07:48 05/17/24 14:15 Nitroglycerin/Dextrose IVPB 20 mcg/min .TITRATE PRN 12 mls/hr heart failure Infusion Protocol 5 MCG/MIN Vancomycin/PEG/NADA/Lysine/Water 1.25 gm in 250 mls @ 166.667 mls/hr 05/17/24 10:30 05/17/24 14:31 Vancomycin 1.25 Gm/250 Ml IVPB 05/17/24 11:59 Infused ONCE ONE Infusion Cefepime HCl 1 gm/ Sodium 100 mls @ 200 mls/hr 05/17/24 10:35 05/17/24 11:49 Chloride IVPB 05/17/24 11:04 Infused ONCE ONE Infusion Methylprednisolone Sodium Succinate 125 mg 05/17/24 07:29 05/17/24 07:58 Methylprednisolone Sod Succ 62.5 Mg/Ml (125) IVP 05/17/24 07:30 125 mg ONCE ONE Administration Morphine Sulfate 4 mg 05/17/24 07:53 05/17/24 08:02 Morphine 4 Mg/Ml Inj IVP 05/17/24 07:54 4 mg ONCE ONE Administration <Jaqui Dove MD - Last Filed: 05/17/24 14:22> MDM - SOB/Dyspnea MDM Narrative Medical decision making narrative: Life-threatening differential diagnosis includes occluded COPD exacerbation, pulmonary edema, acute coronary syndromes, pulmonary embolism, pneumonia, and pneumothorax. Other differential diagnosis considerations include asthma, bronchitis as well as other etiologies <Narayan Sher MD - Last Filed: 05/17/24 15:51> Differential Diagnosis Differential diagnosis: Likely acute exacerbation of chronic obstructive airways disease <Narayan Sher MD - Last Filed: 05/17/24 15:51> Medical Records Attestation: I reviewed the patient's medical records. <Narayan Sher MD - Last Filed: 05/17/24 15:51> Lab Data Labs: Lab Results 05/17/24 05/17/24 05/17/24 Range/Units 07:30 07:40 07:50 WBC 17.63 H (4.50-11.00) K/uL RBC 2.79 L (4.30-5.90) m/uL Hgb 9.0 L (13.5-17.5) gm/dL Hct 29.6 L (37.0-53.0) % MCV 106 H (80-100) fL MCH 32 (26-34) pg MCHC 30 L (32-36) gm/dL RDW Coeff of Martir 12.7 (11.5-15.5) % Plt Count 370 (140-440) K/uL Neut % (Auto) 42.0 (42.0-72.0) % Lymph % (Auto) 44.0 (20-44) % [place] % (Auto) 6.7 (0.0-11.0) % Eos % (Auto) 6.2 (0.0-7.0) % Baso % (Auto) 0.6 (0.0-3.0) % Neut # (Auto) 7.40 H (1.7-7.0) K/uL Lymph # (Auto) 7.80 H (0.90-2.90) K/uL [place] # (Auto) 1.20 H (0.00-0.90) K/UL Eos # (Auto) 1.10 H (0.00-0.50) K/uL Baso # (Auto) 0.10 (0.00-0.30) K/uL Abs Immat Gran (auto) 0.10 (0.00-0.30) K/uL Imm/Tot Granulo (auto) 0.5 % Diff Slide Review Acceptable Review (Acceptable) INR 1.18 H (0.91-1.10) APTT 24 (23-33) Seconds D-Dimer Quant (PE/DVT) 5.92 H (0.00-0.50) ug/ml ABG pH 7.10 L* (7.35-7.45) ABG pCO2 57 H (35-45) mmHG ABG pO2 68.8 L (80-105) mmHG ABG HCO3 18 L (21-28) mmol/L ABG Total CO2 18 L (21-30) mmol/l ABG O2 Saturation 86 L (92-100) % ABG Base Excess -11.9 L (-3.0-3.0) mmol/L Carboxyhemoglobin 2.5 (0.0-5.0) % Sodium 140 (135-149) mmol/L Potassium 5.8 H (3.6-5.1) mmol/L Chloride 107 (96-114) mmol/L Carbon Dioxide 15 L (20-32) mmol/L Anion Gap 18 H (7-15) mEq/L BUN 60 H (7-30) mg/dL Creatinine 7.7 H (0.5-1.5) mg/dL Estimated GFR 7 ml/min Glucose 322 H (60-115) mg/dL Lactate Cancelled Calcium 7.9 L (8.4-10.6) mg/dL Total Bilirubin 0.4 (0.1-1.5) mg/dL Direct Bilirubin 0.4 (0.0-0.5) mg/dL AST 24 (12-35) U/L ALT 18 (4-50) U/L Alkaline Phosphatase 135 (40-150) U/L C-Reactive Protein < 0.5 L (0.5-1.0) mg/dL NT-Pro-B Natriuret Pep 91684 pg/mL Total Protein 6.9 (6.0-8.3) g/dL Albumin 4.2 (3.3-5.0) g/dL Urine Opiates Screen (Negative) Ur Oxycodone Screen (Negative) Urine Methadone Screen (Negative) Ur Barbiturates Screen (Negative) U Tricyclic Antidepress (Negative) Ur Phencyclidine Scrn (Negative) Ur Amphetamines Screen (Negative) U Methamphetamines Scrn (Negative) U Benzodiazepines Scrn (Negative) Urine Cocaine Screen (Negative) U Marijuana (THC) Screen (Negative) Ur Drug Screen Comment Ethyl Alcohol < 0.00 L (0.01-0.03) % SARS-CoV-2 (PCR) (Negative) Influenza Type A (PCR) (Negative) Influenza Type B (PCR) (Negative) RSV (PCR) (Negative) POC Troponin I 0.05 H (0.01-0.04) ng/ml 05/17/24 05/17/24 05/17/24 Range/Units 07:55 08:55 11:18 WBC (4.50-11.00) K/uL RBC (4.30-5.90) m/uL Hgb (13.5-17.5) gm/dL Hct (37.0-53.0) % MCV (80-100) fL MCH (26-34) pg MCHC (32-36) gm/dL RDW Coeff of Martir (11.5-15.5) % Plt Count (140-440) K/uL Neut % (Auto) (42.0-72.0) % Lymph % (Auto) (20-44) % [place] % (Auto) (0.0-11.0) % Eos % (Auto) (0.0-7.0) % Baso % (Auto) (0.0-3.0) % Neut # (Auto) (1.7-7.0) K/uL Lymph # (Auto) (0.90-2.90) K/uL [place] # (Auto) (0.00-0.90) K/UL Eos # (Auto) (0.00-0.50) K/uL Baso # (Auto) (0.00-0.30) K/uL Abs Immat Gran (auto) (0.00-0.30) K/uL Imm/Tot Granulo (auto) % Diff Slide Review (Acceptable) INR (0.91-1.10) APTT (23-33) Seconds D-Dimer Quant (PE/DVT) (0.00-0.50) ug/ml ABG pH 7.22 L* (7.35-7.45) ABG pCO2 48 H (35-45) mmHG ABG pO2 76.1 L (80-105) mmHG ABG HCO3 19 L (21-28) mmol/L ABG Total CO2 19 L (21-30) mmol/l ABG O2 Saturation 92 (92-100) % ABG Base Excess -8.1 L (-3.0-3.0) mmol/L Carboxyhemoglobin 2.6 (0.0-5.0) % Sodium (135-149) mmol/L Potassium (3.6-5.1) mmol/L Chloride (96-114) mmol/L Carbon Dioxide (20-32) mmol/L Anion Gap (7-15) mEq/L BUN (7-30) mg/dL Creatinine (0.5-1.5) mg/dL Estimated GFR ml/min Glucose (60-115) mg/dL Lactate 1.2 Calcium (8.4-10.6) mg/dL Total Bilirubin (0.1-1.5) mg/dL Direct Bilirubin (0.0-0.5) mg/dL AST (12-35) U/L ALT (4-50) U/L Alkaline Phosphatase (40-150) U/L C-Reactive Protein (0.5-1.0) mg/dL NT-Pro-B Natriuret Pep pg/mL Total Protein (6.0-8.3) g/dL Albumin (3.3-5.0) g/dL Urine Opiates Screen Negative (Negative) Ur Oxycodone Screen Negative (Negative) Urine Methadone Screen Negative (Negative) Ur Barbiturates Screen Negative (Negative) U Tricyclic Antidepress Negative (Negative) Ur Phencyclidine Scrn Negative (Negative) Ur Amphetamines Screen Negative (Negative) U Methamphetamines Scrn Negative (Negative) U Benzodiazepines Scrn Negative (Negative) Urine Cocaine Screen Negative (Negative) U Marijuana (THC) Screen POSITIVE A (Negative) Ur Drug Screen Comment See Note Ethyl Alcohol (0.01-0.03) % SARS-CoV-2 (PCR) Negative SARS-CoV-2 (Negative) Influenza Type A (PCR) Negative PCR FLU A (Negative) Influenza Type B (PCR) Negative PCR FLU B (Negative) RSV (PCR) Negative PCR RSV (Negative) POC Troponin I (0.01-0.04) ng/ml <Narayan Sher MD - Last Filed: 05/17/24 15:51> Lab Results 05/17/24 05/17/24 05/17/24 Range/Units 07:30 07:40 07:50 WBC 17.63 H (4.50-11.00) K/uL RBC 2.79 L (4.30-5.90) m/uL Hgb 9.0 L (13.5-17.5) gm/dL Hct 29.6 L (37.0-53.0) % MCV 106 H (80-100) fL MCH 32 (26-34) pg MCHC 30 L (32-36) gm/dL RDW Coeff of Martir 12.7 (11.5-15.5) % Plt Count 370 (140-440) K/uL Neut % (Auto) 42.0 (42.0-72.0) % Lymph % (Auto) 44.0 (20-44) % [place] % (Auto) 6.7 (0.0-11.0) % Eos % (Auto) 6.2 (0.0-7.0) % Baso % (Auto) 0.6 (0.0-3.0) % Neut # (Auto) 7.40 H (1.7-7.0) K/uL Lymph # (Auto) 7.80 H (0.90-2.90) K/uL [place] # (Auto) 1.20 H (0.00-0.90) K/UL Eos # (Auto) 1.10 H (0.00-0.50) K/uL Baso # (Auto) 0.10 (0.00-0.30) K/uL Abs Immat Gran (auto) 0.10 (0.00-0.30) K/uL Imm/Tot Granulo (auto) 0.5 % Diff Slide Review Acceptable Review (Acceptable) INR 1.18 H (0.91-1.10) APTT 24 (23-33) Seconds D-Dimer Quant (PE/DVT) 5.92 H (0.00-0.50) ug/ml ABG pH 7.10 L* (7.35-7.45) ABG pCO2 57 H (35-45) mmHG ABG pO2 68.8 L (80-105) mmHG ABG HCO3 18 L (21-28) mmol/L ABG Total CO2 18 L (21-30) mmol/l ABG O2 Saturation 86 L (92-100) % ABG Base Excess -11.9 L (-3.0-3.0) mmol/L Carboxyhemoglobin 2.5 (0.0-5.0) % Sodium 140 (135-149) mmol/L Potassium 5.8 H (3.6-5.1) mmol/L Chloride 107 (96-114) mmol/L Carbon Dioxide 15 L (20-32) mmol/L Anion Gap 18 H (7-15) mEq/L BUN 60 H (7-30) mg/dL Creatinine 7.7 H (0.5-1.5) mg/dL Estimated GFR 7 ml/min Glucose 322 H (60-115) mg/dL Lactate Cancelled Calcium 7.9 L (8.4-10.6) mg/dL Total Bilirubin 0.4 (0.1-1.5) mg/dL Direct Bilirubin 0.4 (0.0-0.5) mg/dL AST 24 (12-35) U/L ALT 18 (4-50) U/L Alkaline Phosphatase 135 (40-150) U/L C-Reactive Protein < 0.5 L (0.5-1.0) mg/dL NT-Pro-B Natriuret Pep 38227 pg/mL Total Protein 6.9 (6.0-8.3) g/dL Albumin 4.2 (3.3-5.0) g/dL Urine Opiates Screen (Negative) Ur Oxycodone Screen (Negative) Urine Methadone Screen (Negative) Ur Barbiturates Screen (Negative) U Tricyclic Antidepress (Negative) Ur Phencyclidine Scrn (Negative) Ur Amphetamines Screen (Negative) U Methamphetamines Scrn (Negative) U Benzodiazepines Scrn (Negative) Urine Cocaine Screen (Negative) U Marijuana (THC) Screen (Negative) Ur Drug Screen Comment Ethyl Alcohol < 0.00 L (0.01-0.03) % SARS-CoV-2 (PCR) (Negative) Influenza Type A (PCR) (Negative) Influenza Type B (PCR) (Negative) RSV (PCR) (Negative) POC Troponin I 0.05 H (0.01-0.04) ng/ml 05/17/24 05/17/24 05/17/24 Range/Units 07:55 08:55 11:18 WBC (4.50-11.00) K/uL RBC (4.30-5.90) m/uL Hgb (13.5-17.5) gm/dL Hct (37.0-53.0) % MCV (80-100) fL MCH (26-34) pg MCHC (32-36) gm/dL RDW Coeff of Martir (11.5-15.5) % Plt Count (140-440) K/uL Neut % (Auto) (42.0-72.0) % Lymph % (Auto) (20-44) % [place] % (Auto) (0.0-11.0) % Eos % (Auto) (0.0-7.0) % Baso % (Auto) (0.0-3.0) % Neut # (Auto) (1.7-7.0) K/uL Lymph # (Auto) (0.90-2.90) K/uL [place] # (Auto) (0.00-0.90) K/UL Eos # (Auto) (0.00-0.50) K/uL Baso # (Auto) (0.00-0.30) K/uL Abs Immat Gran (auto) (0.00-0.30) K/uL Imm/Tot Granulo (auto) % Diff Slide Review (Acceptable) INR (0.91-1.10) APTT (23-33) Seconds D-Dimer Quant (PE/DVT) (0.00-0.50) ug/ml ABG pH 7.22 L* (7.35-7.45) ABG pCO2 48 H (35-45) mmHG ABG pO2 76.1 L (80-105) mmHG ABG HCO3 19 L (21-28) mmol/L ABG Total CO2 19 L (21-30) mmol/l ABG O2 Saturation 92 (92-100) % ABG Base Excess -8.1 L (-3.0-3.0) mmol/L Carboxyhemoglobin 2.6 (0.0-5.0) % Sodium (135-149) mmol/L Potassium (3.6-5.1) mmol/L Chloride (96-114) mmol/L Carbon Dioxide (20-32) mmol/L Anion Gap (7-15) mEq/L BUN (7-30) mg/dL Creatinine (0.5-1.5) mg/dL Estimated GFR ml/min Glucose (60-115) mg/dL Lactate 1.2 Calcium (8.4-10.6) mg/dL Total Bilirubin (0.1-1.5) mg/dL Direct Bilirubin (0.0-0.5) mg/dL AST (12-35) U/L ALT (4-50) U/L Alkaline Phosphatase (40-150) U/L C-Reactive Protein (0.5-1.0) mg/dL NT-Pro-B Natriuret Pep pg/mL Total Protein (6.0-8.3) g/dL Albumin (3.3-5.0) g/dL Urine Opiates Screen Negative (Negative) Ur Oxycodone Screen Negative (Negative) Urine Methadone Screen Negative (Negative) Ur Barbiturates Screen Negative (Negative) U Tricyclic Antidepress Negative (Negative) Ur Phencyclidine Scrn Negative (Negative) Ur Amphetamines Screen Negative (Negative) U Methamphetamines Scrn Negative (Negative) U Benzodiazepines Scrn Negative (Negative) Urine Cocaine Screen Negative (Negative) U Marijuana (THC) Screen POSITIVE A (Negative) Ur Drug Screen Comment See Note Ethyl Alcohol (0.01-0.03) % SARS-CoV-2 (PCR) Negative SARS-CoV-2 (Negative) Influenza Type A (PCR) Negative PCR FLU A (Negative) Influenza Type B (PCR) Negative PCR FLU B (Negative) RSV (PCR) Negative PCR RSV (Negative) POC Troponin I (0.01-0.04) ng/ml <Jaqui Dove MD - Last Filed: 05/17/24 14:22> Discharge Plan Discharge Clinical Impression: Acute respiratory distress, Dialysis patient, Hypervolemia, Pneumonia <Narayan Sher MD - Last Filed: 05/17/24 15:51> Patient Disposition: [facility] <Narayan Sher MD - Last Filed: 05/17/24 15:51> Condition: Improved <Narayan Sher MD - Last Filed: 05/17/24 15:51> Prescriptions: No Action carvedilol 12.5 mg tablet 6.25 mg PO BID atorvastatin 40 mg tablet 40 mg PO QPM aspirin 81 mg tablet,chewable 1 tab PO DAILY multivitamin with folic acid [Daily-Ernestina (with folic acid)] 400 mcg tablet 1 tab PO DAILY bumetanide 2 mg tablet 2 mg PO DAILY <Narayan Sher MD - Last Filed: 05/17/24 15:51> Stand Alone Forms: MyHealth Info Instructions <Narayan Sher MD - Last Filed: 05/17/24 15:51>
[2024-05-17] MEDS: FUROSEMIDE 10 MG/ML inj 80 MG IVP (07:55)
[2024-05-17] MEDS: METHYLPREDNISOLONE SOD SUCC 62.5 MG/ML (125) 125 MG IVP (07:58)
[2024-05-17 08:00] LABS: Basophils Percent Auto 0.6 % (0.0-3.0); Eosinophils Percent Auto 6.2 % (0.0-7.0); Hematocrit 29.6 % (37.0-53.0); Immature Granulocytes Pct Auto 0.5 %; Mean Corpuscular HGB Conc 30 gm/dL (32-36); Mean Corpuscular Hemoglobin 32 pg (26-34); Mean Corpuscular Volume 106 fL (80-100); Monocytes Percent Auto 6.7 % (0.0-11.0); Platelet Count* 370 K/uL (140-440); RDW Coefficient of Variation % 12.7 % (11.5-15.5); Red Blood Count 2.79 m/uL (4.30-5.90); White Blood Count* 17.63 K/uL (4.50-11.00)
[2024-05-17] MEDS: MORPHINE 4 MG/ML INJ IVP (08:02)
[2024-05-17] MEDS: NITROGLYCERIN/DEXTROSE 25,000 MCG/250 ML BOTTLE 12 MCG IVPB (08:04)
[2024-05-17 08:08] LABS: Chloride* 107 mmol/L (96-114); Slide Review Reflex Yes
[2024-05-17 08:09] LABS: Albumin* 4.2 g/dL (3.3-5.0); Potassium* 5.8 mmol/L (3.6-5.1); Sodium* 140 mmol/L (135-149)
[2024-05-17 08:11] LABS: Creatinine* 7.7 mg/dL (0.5-1.5); Estimated Glomerular Filt Rate 7 ml/min
[2024-05-17 08:12] LABS: Amphetamine Screen Urine Negative (Negative); Barbiturate Screen Urine Negative (Negative); Benzodiazepines Screen Urine Negative (Negative); Cannabinoid Screen Urine POSITIVE (Negative); Cocaine Screen Urine Negative (Negative); Methadone Screen Urine Negative (Negative); Methamphetamines Screen Urine Negative (Negative); Opiate Screen Urine Negative (Negative); Oxycodone Screen Urine Negative (Negative); Phencyclidine Screen Urine Negative (Negative); Tricyclic Antidepressant Urine Negative (Negative)
[2024-05-17 08:12] LABS: Alanine Aminotransferase* 18 U/L (4-50); Alkaline Phosphatase* 135 U/L (40-150); Anion Gap 18 mEq/L (7-15); Aspartate Amino Transferase* 24 U/L (12-35); Bilirubin Direct* 0.4 mg/dL (0.0-0.5); Bilirubin Total* 0.4 mg/dL (0.1-1.5); Blood Urea Nitrogen* 60 mg/dL (7-30); Calcium* 7.9 mg/dL (8.4-10.6); Carbon Dioxide* 15 mmol/L (20-32); Glucose* 322 mg/dL (60-115); Total Protein* 6.9 g/dL (6.0-8.3)
[2024-05-17 08:14] LABS: INR 1.18 (0.91-1.10); Partial Thromboplastin Time* 24 Seconds (23-33); Prothrombin Time 15.8 Seconds
[2024-05-17 08:15] LABS: Ethanol* < 0.00 % (0.01-0.03)
[2024-05-17 08:24] LABS: D Dimer Quantitative* 5.92 ug/ml (0.00-0.50)
[2024-05-17 08:26] LABS: C Reactive Protein* < 0.5 mg/dL (0.5-1.0); NT Pro B Type NatriureticPept* 21800 pg/mL
[2024-05-17 08:48] LABS: Troponin, Point-of-Care* 0.05 ng/ml (0.01-0.04)
[2024-05-17 09:04] LABS: ABG PCO2 48 mmHG (35-45); Base Excess ABG -8.1 mmol/L (-3.0-3.0); HCO3 ABG 19 mmol/L (21-28); Oxygen Saturation ABG 92 % (92-100); PO2 ABG 76.1 mmHG (80-105); TCO2 ABG 19 mmol/l (21-30); pH ABG 7.22 (7.35-7.45)
[2024-05-17 09:05] LABS: Carboxyhemoglobin* 2.6 % (0.0-5.0)
[2024-05-17 09:07] LABS: Lactate* 1.2 mmol/L (0.5-1.9)
[2024-05-17 09:14] LABS: Slide Review Acceptable Review (Acceptable)
[2024-05-17] MEDS: VANCOMYCIN 1.25 GM/250 ML 1.25 GM/250 ML PIGGYBACK IVPB (11:47)
[2024-05-17 11:59] LABS: PCR FLU A Negative PCR FLU A (Negative); PCR FLU B Negative PCR FLU B (Negative); PCR RSV Negative PCR RSV (Negative); SARS PCR* Negative SARS-CoV-2 (Negative)
--- NOTE | 2024-05-17 12:02 | PC.SOCIAL ---
Met with pt. who said he was having trouble getting transportation to dialyses. Pt. was just at [facility] and a bilingual case manager there arranged with his [facility] Insurance for [employer] transit to flower picker pt. M/W/F for dialysis. Pt. needs to walk one block to the bus stop for flower picker. Pt. states he does not want to do this and wants the lady they arranged previously to pick him up. This was through [employer] out of [place] and they could not continue to flower picker pt. on a regular basis. Pt.'s [facility] is working on trying to get pt. a piledriver carpenter for his dialysis. Updated pt. on this and gave him the contact information for [employer], local taxi, and the [employer]. Advised pt. to call his [facility] bilingual case manager to see where they were in the process on find a shuttle driver for pt. Pt. is currently being transferred to [place].
== END 2024-05-17 14:15 | disposition short-term general hospital (02) ==
PROVIDERS: Family Medicine; Emergency Provider Emergency Medicine
DX: R06.03 Acute respiratory distress (principal); J18.9 Pneumonia, unspecified organism; E87.70 Fluid overload, unspecified
CPT/HCPCS: 36415; 36600; 71045; 80048; 80076; 80306; 82077; 82803; 83605; 83880; 84484; 85025; 85379; 85610; 85730; 86140; 87040; 87631; 93005; 94660; 94761; 96365; 96366; 96375; 99285; 99291; J0692; J1940; J2270; J2919; J3372

== ENCOUNTER 2024-05-17 14:55 | Outpatient (CLI) | payer MEDICAID, SELFPAY | END 2024-05-17 14:56 | disposition home or self-care (01) | LOC: AMB 05-18 15:59 | PROVIDERS: Visit Provider Emergency Medicine | DX: R06.09 Other forms of dyspnea (principal); J18.9 Pneumonia, unspecified organism; E87.70 Fluid overload, unspecified | CPT/HCPCS: A0425; A0427 ==

== ENCOUNTER 2024-06-25 01:09 | Outpatient (CLI) | payer MEDICAID, SELFPAY | END 2024-06-25 01:10 | disposition home or self-care (01) | LOC: AMB 07-08 00:53 | PROVIDERS: Visit Provider Internal Medicine | DX: R06.09 Other forms of dyspnea (principal) | CPT/HCPCS: A0425; A0427 ==

== ENCOUNTER 2024-06-25 01:37 | Emergency (ER) | payer MEDICAID, SELFPAY ==
[2024-06-25] VITALS (55 sets, daily range): BP systolic 135–208; BP diastolic 93–136; PULSE 69–138; RESP 18–32; TEMP 36.2–36.4; O2SAT 90–98
--- OUTSIDE RECORDS SUMMARY | 2024-06-25 01:40 | XMS_ITS | Referral Summary ---
Author Organization [facility] Address [address] [facility] [place] [address] Care Team Providers Care Spine Nurse Name Role Phone [facility] Primary [facility] Provider Allergies Active Allergy Reactions Criticality Noted Date Comments Ranitidine Itching 09/08/2018 Blisters Medications AMLODIPINE BESYLATE PO Take 10 mg by mouth daily Active carvedilol (COREG) 25 MG tablet Take 25 mg by mouth 2 times daily (with meals) 06/18/2023 Active furosemide (LASIX) 40 MG tablet Take 40 mg by mouth daily 06/18/2023 Active aspirin (ASA) 81 MG chewable tablet Take 81 mg by mouth daily 06/18/2023 Active Multiple Vitamin (TAB-A-KENJI) TABS Take 1 tablet by mouth daily 07/11/2023 Active hydrALAZINE (APRESOLINE) 50 MG tablet Take 50 mg by mouth 2 times daily 06/18/2023 Active isosorbide mononitrate (IMDUR) 60 MG 24 hr tablet Take 120 mg by mouth daily 06/18/2023 Active atorvastatin (LIPITOR) 40 MG tablet Take 40 mg by mouth daily 06/18/2023 Active ciprofloxacin (CIPRO) 500 MG tabletIndication s:Pancreas cyst Take 1 tablet (500 mg) by mouth 2 times daily 10 tablet 07/31/2023 Active Social History Tobacco Use Types Packs/Day Years Used Date Smoking Tobacco: Every Day Alcohol Use Standard Drinks/Week Comments Not Currently 0 (1 standard drink = 0.6 oz pur e alcohol) Adolescent Education Answer Date Record ed Getting School Help Needed Not on file 03/13 Sex and Gender Information Value Date Recorded Sex Assigned at Not on file Legal Sex Male 9:52 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 CHASER Gender Identity Not on file Sexual Orientation Not on file Last Filed Vital Signs Vital Sign Reading Time Taken Comments Blood Pressure 116/67 07/31/2023 3:45 PM WRINKLE CHASER Pulse 49 07/31/2023 3:45 PM WRINKLE CHASER Temperature 36.4 C (97.5 F) 07/31/2023 3:15 PM WRINKLE CHASER Respiratory Rate 16 07/31/2023 3:20 PM WRINKLE CHASER Oxygen Saturation 95% 07/31/2023 3:45 PM WRINKLE CHASER Inhaled Oxygen Concentration - - Weight 54.5 kg (120 lb 3.2 oz) 07/31/2023 12:05 PM WRINKLE CHASER Height 172.7 cm (5' 7.99) 07/31/2023 12:05 PM C Body Mass Index 18.28 07/31/2023 12:05 PM WRINKLE CHASER Plan of Treatment Not on file Insurance [facility] Care Teams Spine Nurse Relationship Specialty Start Date End Date [facility], [place] [phone] PCP - General 07/31/23
--- OUTSIDE RECORDS SUMMARY | 2024-06-25 01:40 | XMS_ITS | Clinical Summary ---
Author Organization [facility] Address [address] [facility] 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 Gender Identity Not on file Sexual Orientation Not on file Last Filed Vital Signs Vital Sign Reading Time Taken Comments Blood Pressure 116/67 07/31/2023 3:45 PM DRYING UNIT FELTING MACHINE OPERATOR Pulse 49 07/31/2023 3:45 PM DRYING UNIT FELTING MACHINE OPERATOR Temperature 36.4 C (97.5 F) 07/31/2023 3:15 PM DRYING UNIT FELTING MACHINE OPERATOR Respiratory Rate 16 07/31/2023 3:20 PM DRYING UNIT FELTING MACHINE OPERATOR Oxygen Saturation 95% 07/31/2023 3:45 PM DRYING UNIT FELTING MACHINE OPERATOR Inhaled Oxygen Concentration - - Weight 54.5 kg (120 lb 3.2 oz) 07/31/2023 12:05 PM DRYING UNIT FELTING MACHINE OPERATOR Height 172.7 cm (5' 7.99) 07/31/2023 12:[address] Body Mass Index 18.28 07/31/2023 12:05 PM DRYING UNIT FELTING MACHINE OPERATOR Plan of Treatment Health Maintenance Due Date Last Done Comments ADVANCE CARE PLANNING 1960 ANNUAL REVIEW OF HM ORDERS 1960 CT COLONOGRAPHY 1960 FIT 1960 FLEX SIG 1960 GLUCOSE 1960 LIPID 1960 NICOTINE/TOBACCO CESSATION COUNSELING Q 1 YR 1960 sDNA (Cologuard) 1960 YEARLY PREVENTIVE VISIT 09/10/1963 COLONOSCOPY 1970 COLORECTAL CANCER SCREENING 1970 HIV SCREENING 09/10/1975 HEPATITIS C SCREENING 1978 DTAP/TDAP/TD IMMUNIZATION (2 - Td or Tdap) 10/09/2022 10/09/2012, 01/16/2003 COVID-19 Vaccine ( season) 2024 02/20/2022, 04/04/2021, 09/11/2020, Additional history exists INFLUENZA VACCINE (#1) 2024 , 04/04/2021, 05/31/2020, Additional history exists LUNG CANCER SCREENING 03/13/2024 03/13/2023 PHQ-2 (once per calendar year) 2024 Pneumococcal Vaccine: 50+ Years (3 of 3 - PCV20 or PCV21) 05/31/2025 05/31/2020, 05/17/2008 RSV VACCINE (1 - 1-dose 75+ series) 09/10/2035 ZOSTER IMMUNIZATION Completed 05/31/2020, 9 HPV IMMUNIZATION Aged Out No longer e ligible based on patient's age to complete this topic MENINGITIS IMMUNIZATION Aged Out No l onger eligible based on patient's age to complete this topic RSV MONOCLONAL ANTIBODY Aged Out No l onger eligible based on patient's age to complete this topic Insurance [facility] Care Teams Plasterer Rough Relationship Specialty Start Date End Date [facility], [address] [phone] PCP - General 07/31/23
--- OUTSIDE RECORDS SUMMARY | 2024-06-25 01:40 | XMS_ITS | Clinical Summary ---
Author Organization [facility] Address [address] [place] [id number] Care Team Providers Care Project Engineering Manager Name Role Phone Unavailable Primary Care Provider Unavailabl e Source Comments Patient records contain information from all sites at [facility]. For routine questions regarding patient records, call [phone] during business hours, M-F 8:00 AM - 5:00 PM Central Time. Record requests for emergency care only can be directed to [phone] at any time.[facility] Allergies Active Allergy Reactions Criticality Noted Date Comments Ranitidine Hcl Blisters High 03/13/2023 Medications multivitamin-ir on-FA (CENTRUM COMPLETE) 18-400 mg-mcg per tablet Take 1 tablet by mouth daily. 03/19/20 Active acetaminophen (TYLENOL) 500 mg tablet Take 1 tablet (500 mg total) by mouth every 6 (six) hours as needed for mild pain or score 1-3 of 10 or fever (Notify service prior to first administration for fever). 03/19/20 Active carvediloL (COREG) 12.5 mg tablet Take 1 tablet (12.5 mg total) by mouth 2 (two) times a day with meals. 180 tablet 3 03/19/2023 3:58 PM CDT 03/19/20 Active amLODIPine (NORVASC) 5 mg tablet Take 1 tablet (5 mg total) by mouth daily. 90 tablet 3 03/19/2023 3:58 PM CDT 03/19/20 Active sodium bicarbonate 650 mg tablet Take 2 tablets (1,300 mg total) by mouth 3 (three) times a day. 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 03/14/2023 Edema Pulmonary Acute 03/14/2023 Acute Respiratory Failure With Hypoxia Social History Tobacco Use Types Packs/Day Years Used Date Smoking Tobacco: Some Days Cigarettes Tobacco Cessation:Ready to Q uit: Not Asked Alcohol Use Standard Drinks/Week Comments Yes 0 (1 standard drink = 0.6 oz pur e alcohol) Nutrition Answer Date Recorded Nutrition: EVOO Fat Source Unknown 03/13 Nutrition: Servings of Fruits/Vegetables per Day Not on file 03/13/2023 Dental Answer Date Recorded Dental: Regular Dentist Unknown 03/13/20 Sex and Gender Information Value Date Recorded Sex Assigned at Not on file Legal Sex Male 1:31 AM CDT Gender Identity Not on file Sexual Orientation Not on file Last Filed Vital Signs Vital Sign Reading Time Taken Comments Blood Pressure 179/86 03/19/2023 3:15 PM CDT Pulse 86 03/19/2023 3:15 PM CDT Temperature 36.6 C (97.9 F) 03/19/2023 3:15 PM CDT Respiratory Rate 16 03/19/2023 3:15 PM CDT Oxygen Saturation 96% 03/19/2023 3:15 PM CDT Inhaled Oxygen Concentration - - Weight 55.3 kg (121 lb 14.6 oz) 03/19/2023 8:00 AM CDT Height 177 cm (5' 9.69) 03/13/2023 4:30 AM CDT Body Mass Index 17.65 03/13/2023 4:30 AM CDT Plan of Treatment Health Maintenance Due Date Last Done Comments CT Colonography 1960 Cologuard 1960 Colonoscopy 1960 Colorectal Cancer Screening 1960 FIT 1960 Tobacco Cessation counseling 1960 DTaP,Tdap,and Td Vaccines (2 - Td or Tdap) 10/09/2022 10/09/2012, 01/16/2003 Office Visit for Blood Pressure Check / Re-check 06/13/2023 03/13/2023 Depression Screening (Annual PHQ-2) 05/26/2024 Creatinine Level (Kidney Function Test) 05/20/2025 05/20/2024, 05/19/2024, 05/18/2024, Additional history exists Potassium Level 05/25/2025 05/25/2024, 04/26, 05/19/2024, Additional history exists Sodium Level 05/25/2025 05/25/2024, 04/26, 05/19/2024, Additional history exists Pneumococcal vaccine (50+ years) (3 of 3 - PCV20 or PCV21) 05/31/2025 05/31/2020, 05/17/2008 Fasting Glucose for Diabetes Screening 05/20/2027 05/20/2024, 05/19/2024, 05/18/2024, Additional history exists Lipid (Cholesterol) Screening 03/15/2028 03/15/2023 Zoster Vaccines Completed 05/31/2020, 02/05/2019 HIV Screening Completed 03/14/2023 Hepatitis C Screening Completed 03/14/2023, 023 COVID-19 Vaccine Completed 05/08/2024, , 04/04/2021, Additional history exists Influenza Vaccine Completed 05/08/2024, , 04/04/2021, Additional history exists IPV Vaccines Aged Out No longer eligi ble based on patient's age to complete this topic Procedures Procedure Name Priority Date/Time Associated Diagnosis Comments RENAL FUNCTION PANEL, S Routine 03/19/2023 8:11 AM CDT LIPID PANEL, S Routine 03/15/2023 5:56 AM CDT HCV AB SCRN W/REFLEX TO HCV PCR, S Timed 03/14/2023 6:31 PM CDT HIV-1/-2 AG AND AB SCREEN, PLASMA Timed 03/14/2023 6:31 PM CDT from Last 3 Months or Most Recently Relevant to Health Maintenance Results * (ABNORMAL) Lipid Panel (03/15/2023 5:56 AM CDT) Triglycerides 270(H) mg/dL 03/15/2023 7:34 AM CDT DTL Comment: ----REFERENCE VALUE---- Normal: <150 mg/dL Borderline High: 150-199 mg/dL High: 200-499 mg/dL Very High: > or =500 mg/dL Cholesterol, Total 217(H) mg/dL 2022 7:34 AM CDT DTL Comment: ----REFERENCE VALUE---- Desirable: < 200 mg/dL Borderline High: 200 - 239 mg/dL High: > or = 240 mg/dL Cholesterol, LDL, Calculated 120 mg/dL 03/15/2023 7:34 AM CDT DTL Comment: ----REFERENCE VALUE---- Desirable: <100 mg/dL Above Desirable: 100-129 mg/dL Borderline High: 130-159 mg/dL High: 160-189 mg/dL Very High: >=190 mg/dL ----ADDITIONAL INFORMATION---- LDL cholesterol calculated using the Romero/NIH equation. Cholesterol, HDL, S 50 >=40 mg/dL 03/15/2023 7:34 AM CDT DTL Cholesterol, Non-HDL, Calculated 167(H) mg/dL 03/15/2023 7:34 AM CDT DTL Comment: ----REFERENCE VALUE---- Desirable: <130 mg/dL Above Desirable: 130-159 mg/dL Borderline High: 160-189 mg/dL High: 190-219 mg/dL Very High: > or =220 mg/dL Fasting (8 HR or more) No 03/15/2023 7:12 AM CDT DTL Blood (Blood, Venous) 03/15/2023 5:56 AM CDT 03/15/2023 7:12 AM CDT us Sonido Wooten P.A.-C. LAB BLOOD ADD-ON Final Resu lt [facility] [address] [place] [address], [facility] [address] [place] [address] * HIV-1/-2 Ag and Ab Screen, Plasma (03/14/2023 6:31 PM CDT) Pathologist [facility] HIV-1/-2 Ag and Ab Screen, P Negative Negative 03/14/2023 9:01 PM CDT [facility] Comment: Negative result does not rule out HIV infection. If exposure to HIV infection occurred <14 days ago, contact the laboratory to request addition of HIV-1/HIV-2 RNA detection, Plasma (HIP12). Blood (Blood, Venous) 03/14/2023 6:31 PM CDT 03/14/2023 8:20 PM CDT Clai B Catto P.A.-C. LAB MICROBIOLOGY - BLOOD OR DERABLES Final Result Performing Organization Address City/[facility]/ZIP Co de Phone Number [facility] [address] [place] [address] [facility] [address] [place] [address] * (ABNORMAL) HCV Ab Scrn w/Reflex to HCV PCR, Serum (03/14/2023 6:31 PM CDT) HCV Ab Screen, S Reactive(A ) Negative 03/14/2023 11:27 PM CDT [facility] Comment: Supplemental testing for HCV RNA is ordered to rule out active HCV infection. Tfplee-aq-bugdsv ratio is >=1.00 and <8.00. Blood (Blood, Venous) 03/14/2023 6:31 PM CDT 03/14/2023 8:21 PM CDT Clai B Catto P.A.-C. LAB MICROBIOLOGY - BLOOD OR DERABLES Final Result Performing Organization Address City/[facility]/ZIP Co de Phone Number [facility] [address] [place] [address] [facility] [address] [place] [address] from Last 3 Months or Most Recently Relevant to Health Maintenance Insurance [facility] Advance Directives For more information, please contact: [phone] * Full Code (Latest Code Status on File) Date Activated Date Inactivated Comments 03/13/2023 4:37 AM 03/19/2023 5:51 PM Question Answer Comments Full Code: Not Discussed Due to: Patient not available
--- OUTSIDE RECORDS SUMMARY | 2024-06-25 01:40 | XMS_ITS | CONTINUITY OF CARE DOCUMENT ---
Author Name User, QIE Address [address] [place] [address] Organization [facility] [address] [place] [address] Phone [phone] Care Team Providers Care Gas Pumping Station Supervisor Name Role Phone User, QIE Unavailable Unavailable PROBLEMS Condition Status Date Provider Notes Organizati on CKD STAGE ESRD ON DIALYSIS GFR <[address] [facility] [address] [facility] ALLERGIES Allergy Name Onset Date Reaction Criticality Status Provider Or ganization RANITIDINE High Criticality active R masoud [address] [facility] [address] [facility] HISTORY OF MEDICATION USE Medication Instructions Status Dates Provider Indications Com ments Organization TAB-A-KENJI TABS TAKE 1 TABLET BY MOUTH ONCE DAILY. active Trisha [address] [facility] [address] [facility] sodium bicarbonate 650 mg tablet TAKE 2 TABLETS BY MOUTH IN THE MORNING, 2 TABLETS IN THE EVENING AND 2 TABLETS AT BEDTIME. completed - 06/[address] [facility] [address] [facility] atorvastatin 40 mg tablet TAKE 1 TABLET (40 MG) BY MOUTH AT BEDTIME. active Trisha[address] [facility] [address] [facility] furosemide 40 mg tablet 1 once a day active Trisha [address] [facility] [address] [facility] Adult Low Dose Aspirin 81 mg tablet,delaye d release 1 once a day active Trisha[address] [address] [facility] SOCIAL HISTORY Date Observation Value Provider Organization personal history of marijuana use yes Trisha Moy[address] [facility] [address] [facility] social history E&M Patient willy pedersen smokes every day.; Marijuana Use: Y; [facility] [address] [place] [address] [address] [facility] [address] [facility] social history reviewed E&M reviewed - no changes required Trisha M[address] [facility] [address] [facility] smoking status Current every da y smoker Trisha [address] [facility] [address] [facility] FAMILY HISTORY Family Member Condition Mother Unknown INSURANCE PROVIDERS Payer name Policy type / Coverage type [place] red green party ID [employer] INDIV & FAMILY & FV (GRP IFB) [id number] TREATMENT PLAN Date Name Provider Vein Mapping Kaitlyn Aguilar DMS, RVT RDMS, RVT, [address] [facility] [address] [facility] [address] HISTORY OF PROCEDURES Procedure Date Procedure Name Provider Procedure Notes Stat us Organization SNOMED-CT:PATIEN T ENCOUNTER Lit Miller MD, MD, [address] [facility] [address] completed [facility]
--- OUTSIDE RECORDS SUMMARY | 2024-06-25 01:41 | XMS_ITS | Continuity of Care Document ---
Author Organization [facility] Address [address] [address] [place] [address] Phone Care Team Providers Care Lease Administration Supervisor Name Role Phone Naveed Cole MD, Osmani Unavailable Unavailabl e Advance Directives Directive Yes / No Effective Date File Name No Information Encounters Encounter Description Practice Location Reason(s) For Visit Diagnoses Date Provider Providers Copied on Encounter [facility], [address] [address], [place], [place], [id number], tel:[phone] [facility] No Information Naveed Keen. [address], [id number], [place]. tel:[phone] [facility], [address] [address], [place], [place], [id number], [place] tel:[phone] [facility] Pancreas cyst Selam Rashid. [address], [id number], [place]. tel:[phone] [facility], [address] [address], [place], [place], [id number], [place] tel:[phone] [facility] No Information Sobia Alvarez. [address], [id number], [place]. tel:[phone] Family History Family Member Type Diagnosis Age At Onset No Information Immunizations Vaccine Date Status Comments Afluria Qd administered Note: [facility] bi-directional interface ; Source: Other Registry SARS-COV-2 (COVID-19) vaccin e, mRNA, spike protein, LNP, bivalent, preservative free, 30 mcg/0.3 mL dose, tristin-sucrose formulation administered Note: [facility] bi-direct ional interface ; Source: Other Registry SARS-COV-2 (COVID-19) vaccin e, mRNA, spike protein, LNP, preservative free, 30 mcg/0.3mL dose administered Note: [facility] bi-direct ional interface ; Source: Other Registry SARS-COV-2 (COVID-19) vaccin e, mRNA, spike protein, LNP, preservative free, 30 mcg/0.3mL dose administered Note: [facility] bi-direct ional interface ; Source: Other Registry SARS-COV-2 (COVID-19) vaccin e, mRNA, spike protein, LNP, preservative free, 30 mcg/0.3mL dose administered Note: [facility] bi-direct ional interface ; Source: Other Registry zoster vaccine recombinant administered N ote: [facility] bi-directional interface ; Source: Other Registry Prevnar 13 administered Note: [facility] bi-d irectional interface ; Source: Other Registry Havrix administered Note: [facility] bi-d irectional interface ; Source: Other Registry zoster vaccine recombinant administered N ote: [facility] bi-directional interface ; Source: Other Registry Afluria Qd administered Note: [facility] bi-directional interface ; Source: Other Registry Influenza, seasonal, injectable administe red Note: [facility] bi- directional interface ; Source: Other Registry tetanus toxoid, reduced diphtheria toxoid, and acellular pertussis vaccine, adsorbed administered Note: [facility] b i-directional interface ; Source: Other Registry Influenza, seasonal, injectable administe red Note: [facility] bi- directional interface ; Source: Other Registry Novel [id number], all formulations administered Note: [facility] bi-direct ional interface ; Source: Other Registry Influenza, seasonal, injecta ble, preservative free administered Note: [facility] bi-direct ional interface ; Source: Other Registry Influenza, seasonal, injectable administe red Note: [facility] bi- directional interface ; Source: Other Registry Influenza, seasonal, injectable administe red Note: [facility] bi- directional interface ; Source: Other Registry Pneumovax 23 administered Note: [facility] bi-d irectional interface ; Source: Other Registry Havrix administered Note: [facility] bi-d irectional interface ; Source: Other Registry Havrix administered Note: [facility] bi-d irectional interface ; Source: Other Registry Influenza, seasonal, injecta ble, preservative free administered Note: [facility] bi-direct ional interface ; Source: Other Registry Influenza, seasonal, injectable administe red Note: [facility] bi- directional interface ; Source: Other Registry Payers Payer name Insurance type Covered alliance party ID Authoriza tion(s) No Information Social History Type Description Quantity Date Captured Comments Sex Male Smoking Status No Information Chief Complaint And Reason For Visit No Information Reason For Referral Reason For Referral No Information Plan Of Treatment Date Type Action Status Referral Ordered: MRCP Biliary/Pancreatic Ducts WITHOUT And WITH Contrast Appointment date/timeframe: 01/22/2024 ordered History Of Present Illness Encounter Date Complaint History Of Prese nt Illness No Information Functional Status Date Functional Assessmen t No Information Instructions Date Instruction Additional Infor mation No Information Assessments Type Assessment Date No Information Patient Care Teams Name Effective Dates (start - stop) Status Members No Information
--- OUTSIDE RECORDS SUMMARY | 2024-06-25 01:41 | XMS_ITS ---
Author Organization [facility] ([facility]) Address [address] [place] [address] Care Team Providers Care Senior Procurement Specialist Name Role Phone Unavailable Unavailable Unavailable Allergies, Adverse Reactions, Alerts Allergy Name Allergy Type Status Severity Reaction(s) Onset Date Inactive Date Treating Clinician Comments raNITIdine Allergy Active Mild Allergy Itching 2024-04 19:35:3 4 Medications Ordered Medication Name Filled Medication Name Start Date Stop Date Current Medication? Ordering Clinician Indication Dosage Frequency Signature (SIG) Comments Components calcitriol 06-19 06:00: 00 Yes [id number] Number of Repeats Allowed: Frequency: Three times a week Mircera 06-10 06:00: 00 Yes [id number] Number of Repeats Allowed: Frequency: EVE dosing, every two weeks heparin sodium, porcine 05-31 12:33: 36 Yes [id number] Number of Repeats Allowed: Frequency: Every Dialysis TreatmentD osesOrdere d: Loading Dose 1500 Units 1:1000 Units/mLRo anvik: Intravenou s heparin sodium, porcine 05-31 12:33: 36 Yes [id number] Number of Repeats Allowed: Frequency: Every Dialysis TreatmentD osesOrdere d: Hourly Dose 200 Units/Hr 1:1000 Units/mLRo anvik: Intravenou s Normal Saline Solution 0.9% NaCl 2023-05 22:26: 17 Yes [id number] Number of Repeats Allowed: Frequency: Pre-dialys isDosesOrd ered: Arterial Lumen 10 mL Route: Intracathe terDosesOr dered: Venous Lumen 10 mL Route: Intracathe ter Normal Saline Solution 0.9% NaCl 2023-05 22:20: 44 Yes [id number] Number of Repeats Allowed: Frequency: Post-dialy sisDosesOr dered: Arterial Lumen 10 mL Route: Intracathe terDosesOr dered: Venous Lumen 10 mL Route: Intracathe ter Oxygen 2023-05 06:00: 00 Yes [id number] Number of Repeats Allowed: Frequency: As needed loperamide hydrochlori de 2023-05 06:00: 00 Yes [id number] Number of Repeats Allowed: Frequency: Every 4 hours as needed heparin sodium, porcine 2023-05 06:00: 00 Yes [id number] Number of Repeats Allowed: Frequency: Every Dialysis TreatmentD osesOrdere d: Post CVC Instillati on 1500 Units 1:1000 Units/mLRo anvik: Intracathe terDosesOr dered: Post CVC Instillati on 1500 Units 1:1000 Units/mLRo anvik: Intracathe ter acetaminoph en 2023-05 06:00: 00 Yes [id number] Number of Repeats Allowed: Frequency: Every 4 hours as needed Tab-A-Ernestina 2023-05 22:47: 10 Yes Number of Repeats Allowed: Frequency: One time a day Sodium Bicarbonate 2023-05 22:46: 19 Yes Number of Repeats Allowed: Frequency: Three times a day Lasix 2023-05 22:45: 06 Yes Number of Repeats Allowed: Frequency: One time a day Lipitor 2023-05 22:44: 22 Yes Number of Repeats Allowed: Frequency: Once a day, at bedtime Aspirin 81 2023-05 22:43: 16 Yes Number of Repeats Allowed: Frequency: One time a day diphenhydra mine hydrochlori de 2023-05 22:40: 19 Yes [id number] Number of Repeats Allowed: Frequency: Every 30 minutes as needed acetaminoph en 2023-05 22:37: 51 Yes [id number] Number of Repeats Allowed: Frequency: Every 4 hours as needed Problems Condition Name Condition Details Condition Category Status Onset Date Resolution Date Condition Entered On Date Treating Clinician Comments End-stage renal disease Problem List Item Active 2024-06-04 17:06:36 Procedures Procedure Date / Time Performed Performing Clinician Soha donna Details Central Venous Catheter (CVC) 2024-04-28 06:00:00 Access Site Chest (Right) Access Use Start Date 2024-05-14 00:00:0 0 DIALYSIS TREATMENT INFORMATION Conventional Hemodialysis Date Type Treatment Start Date Treatment End Date Pre-Treatment Vitals Post-Treatment Vitals Weight Gain BFR DFR Actual UF Dialysis Access 2024 In-Ce nter Hemod ialys is Treat ment 2024-06-22 T15:05:49. 000Z 2024-06-22 T16:33:49. 000Z BP Sitting (Pre-Dialysis) 142/92 mmHg BP Sitting (Post-D ialysis ) 121/ 84 mmHg BP Standing (Pre-Dialysis) 140/97 mmHg Sitti ng Heart Rate Post-Dialysis 70 BPM Sitting Heart Rate Pre-Dialysis 83 BPM Temperatu re Post-Dialysis 98.2 degF Standing Heart Rate Pre-Dialysis 98 BPM Temperature Pre-Dialysis 97.8 degF June 21, 2024 In-Center Hemodialysis Treatment [id number]:30:19.000Z [id number]:13:23.000Z BP Sitting (Pre-Dialysis) 98/64 mmHg BP Sitting (Post-Dialysis) 124/85 mmHg Concurrent Access: falseCentral Venous Catheter (CVC) Chest (Right) Arterial BP Standing (Pre-Dialysis) 84/60 mmHg BP Standing (P ost-Dialysis) 147/90 mmHg Sitting Heart Rate Pre-Dialysis 90 BPM Sitting Heart Rate Post-Dialysis 71 BPM Standing Heart Rate Pre-Dialysis 64 BPM Standing Heart Rate Post-Dialysis 94 BPM Temperature Pre-Dialysis 98.2 degF Temperature Post -Dialysis 98.2 degF June 18, 2024 In-Center Hemodialysis Treatment [id number]:44:28.000Z [id number]:17:33.000Z BP Sitting (Pre-Dialysis) 145/103 mmHg BP Sitting (Post-Dialysis) 149/81 mmHg Concurrent Access: falseCentral Venous Catheter (CVC) Chest (Right) Arterial BP Standing (Pre-Dialysis) 144/100 mmHg BP Standing (P ost-Dialysis) 138/108 mmHg Sitting Heart Rate Pre-Dialysis 87 BPM Sitting Heart Rate Post-Dialysis 81 BPM Standing Heart Rate Pre-Dialysis 100 BPM Standing Heart Rate Post-Dialysis 109 BPM Temperature Pre-Dialysis 98.2 degF Temperature Post -Dialysis 98.1 degF June 16, 2024 In-Center Hemodialysis Treatment [id number]:41:56.000Z [id number]:11:59.000Z BP Sitting (Pre-Dialysis) 141/94 mmHg BP Sitting (Post-Dialysis) 144/92 mmHg Concurrent Access: falseCentral Venous Catheter (CVC) Chest (Right) Arterial BP Standing (Pre-Dialysis) 135/98 mmHg BP Standing (P ost-Dialysis) 121/86 mmHg Sitting Heart Rate Pre-Dialysis 84 BPM Sitting Heart Rate Post-Dialysis 82 BPM Standing Heart Rate Pre-Dialysis 88 BPM Standing Heart Rate Post-Dialysis 90 BPM Temperature Pre-Dialysis 98.1 degF Temperature Post -Dialysis 98 degF June 14, 2024 In-Center Hemodialysis Treatment [id number]:22:18.000Z [id number]:02:22.000Z BP Sitting (Pre-Dialysis) 128/98 mmHg BP Sitting (Post-Dialysis) 142/87 mmHg Concurrent Access: falseCentral Venous Catheter (CVC) Chest (Right) Arterial BP Standing (Pre-Dialysis) 140/106 mmHg BP Standing (P ost-Dialysis) 109/83 mmHg Sitting Heart Rate Pre-Dialysis 98 BPM Sitting Heart Rate Post-Dialysis 60 BPM Standing Heart Rate Pre-Dialysis 119 BPM Standing Heart Rate Post-Dialysis 94 BPM Temperature Pre-Dialysis 97.4 degF Temperature Post -Dialysis 97.4 degF June 11, 2024 In-Center Hemodialysis Treatment [id number]:59:32.000Z [id number]:00:35.000Z BP Sitting (Pre-Dialysis) 178/95 mmHg BP Sitting (Post-Dialysis) 198/106 mmHg Concurrent Access: falseCentral Venous Catheter (CVC) Chest (Right) Arterial BP Standing (Pre-Dialysis) 169/96 mmHg BP Standing (P ost-Dialysis) 199/104 mmHg Sitting Heart Rate Pre-Dialysis 76 BPM Sitting Heart Rate Post-Dialysis 84 BPM Standing Heart Rate Pre-Dialysis 74 BPM Standing Heart Rate Post-Dialysis 85 BPM Temperature Pre-Dialysis 98.2 degF Temperature Post -Dialysis 98.3 degF June 09, 2024 In-Center Hemodialysis Treatment [id number]:27:58.000Z [id number]:02:01.000Z BP Sitting (Pre-Dialysis) 105/47 mmHg BP Sitting (Post-Dialysis) 124/93 mmHg Concurrent Access: falseCentral Venous Catheter (CVC) Chest (Right) Arterial BP Standing (Pre-Dialysis) 109/51 mmHg BP Standing (P ost-Dialysis) 136/94 mmHg Sitting Heart Rate Pre-Dialysis 79 BPM Sitting Heart Rate Post-Dialysis 84 BPM Standing Heart Rate Pre-Dialysis 86 BPM Standing Heart Rate Post-Dialysis 99 BPM Temperature Pre-Dialysis 97.2 degF Temperature Post -Dialysis 97.4 degF June 07, 2024 In-Center Hemodialysis Treatment [id number]:34:25.000Z [id number]:08:29.000Z BP Sitting (Pre-Dialysis) 200/113 mmHg BP Sitting (Post-Dialysis) 212/113 mmHg Concurrent Access: falseCentral Venous Catheter (CVC) Chest (Right) Arterial BP Standing (Pre-Dialysis) 210/112 mmHg BP Standing (P ost-Dialysis) 224/126 mmHg Sitting Heart Rate Pre-Dialysis 90 BPM Sitting Heart Rate Post-Dialysis 92 BPM Standing Heart Rate Pre-Dialysis 97 BPM Standing Heart Rate Post-Dialysis 118 BPM Temperature Pre-Dialysis 97.6 degF Temperature Post -Dialysis 97.2 degF June 04, 2024 In-Center Hemodialysis Treatment [id number]:24:34.000Z [id number]:55:37.000Z BP Sitting (Pre-Dialysis) 175/99 mmHg BP Sitting (Post-Dialysis) 192/99 mmHg Concurrent Access: falseCentral Venous Catheter (CVC) Chest (Right) Arterial BP Standing (Pre-Dialysis) 169/91 mmHg BP Standing (P ost-Dialysis) 155/101 mmHg Sitting Heart Rate Pre-Dialysis 88 BPM Sitting Heart Rate Post-Dialysis 82 BPM Standing Heart Rate Pre-Dialysis 95 BPM Standing Heart Rate Post-Dialysis 107 BPM Temperature Pre-Dialysis 98.2 degF Temperature Post -Dialysis 98.4 degF June 02, 2024 In-Center Hemodialysis Treatment [id number]:01:02.000Z [id number]:34:06.000Z BP Sitting (Pre-Dialysis) 129/90 mmHg BP Sitting (Post-Dialysis) 130/94 mmHg Concurrent Access: falseCentral Venous Catheter (CVC) Chest (Right) Arterial BP Standing (Pre-Dialysis) 114/79 mmHg BP Standing (P ost-Dialysis) 139/87 mmHg Sitting Heart Rate Pre-Dialysis 81 BPM Sitting Heart Rate Post-Dialysis 91 BPM Standing Heart Rate Pre-Dialysis 101 BPM Standing Heart Rate Post-Dialysis 98 BPM Temperature Pre-Dialysis 97.4 degF Temperature Post -Dialysis 97.2 degF May 31, 2024 In-Center Hemodialysis Treatment [id number]:10:47.000Z [id number]:42:50.000Z BP Sitting (Pre-Dialysis) 160/87 mmHg BP Sitting (Post-Dialysis) 181/91 mmHg Concurrent Access: falseCentral Venous Catheter (CVC) Chest (Right) Arterial BP Standing (Pre-Dialysis) 148/83 mmHg BP Standing (P ost-Dialysis) 197/113 mmHg Sitting Heart Rate Pre-Dialysis 103 BPM Sitting Heart Rate Post-Dialysis 93 BPM Standing Heart Rate Pre-Dialysis 104 BPM Standing Heart Rate Post-Dialysis 108 BPM Temperature Pre-Dialysis 98 degF May 28, 2024 In-Center Hemodialysis Treatment [id number]:07:51.000Z [id number]:13:54.000Z BP Sitting (Pre-Dialysis) 152/85 mmHg BP Sitting (Post-Dialysis) 187/83 mmHg Concurrent Access: falseCentral Venous Catheter (CVC) Chest (Right) Arterial BP Standing (Pre-Dialysis) 156/75 mmHg BP Standing (P ost-Dialysis) 183/83 mmHg Sitting Heart Rate Pre-Dialysis 83 BPM Sitting Heart Rate Post-Dialysis 77 BPM Standing Heart Rate Pre-Dialysis 90 BPM Standing Heart Rate Post-Dialysis 80 BPM Temperature Pre-Dialysis 97.9 degF Temperature Post -Dialysis 98.3 degF May 14, 2024 In-Center Hemodialysis Treatment [id number]:36:44.000Z [id number]:10:48.000Z BP Sitting (Pre-Dialysis) 197/110 mmHg BP Sitting (Post-Dialysis) 213/103 mmHg Concurrent Access: falseCentral Venous Catheter (CVC) Chest (Right) Arterial BP Standing (Pre-Dialysis) 216/108 mmHg BP Standing (P ost-Dialysis) 189/110 mmHg Sitting Heart Rate Pre-Dialysis 76 BPM Sitting Heart Rate Post-Dialysis 78 BPM Standing Heart Rate Pre-Dialysis 87 BPM Standing Heart Rate Post-Dialysis 86 BPM Temperature Pre-Dialysis 98 degF Temperature Post -Dialysis 97.2 degF DIALYSIS ORDER Dialysis Procedure Orders Type of Dialysis Procedure Order Order Date/Time Observations In-Center Hemodialysis Treatment June 21, 2024 Target Weight 55.5 kg Dialysate Flow Rate 500 mL/min Blood Flow Rate 350 mL/min Treatment Time 210 min(total) Max UF Rate 13 mL/kg/hr Base Sodium Dialysate Base Sodium 138 mE q/L dialysate_temp 37 C BiCarb Dialysate BiCarbonate 32 mEq/L Access Concurrent No Arterial Access Central Venous [facility] ter (CVC) (Chest (Right)) Venous Access Central Venous [facility] (CVC) (Chest (Right)) Dialyzer Nipro Elisio 17H 145 5 [email or web address] Dialysate Bath Potassium Potassium 2 mEq /L Dialysate Bath Calcium Calcium 2.5 mEq/L Results Adequacy Description Draw Date Result/Unit Status Ref Range Result Comments eKt/V 2024-06-08 18:03:08 1.55 F Std Renal KT/V 2024-06-08 18:03:08 N/A F DIALYZER FLOW-QD 2024-06-08 18:03:08 500 mL/min F PATIENT AGE 2024-06-08 18:03:08 63 Years F HEIGHT IN INCHES 2024-06-08 18:03:08 69 Inches F PRESCRIBED DAYS/WEEK 2024-06-08 18:03:08 3 Day/Wk F VT (KT/V TX VOL) 2024-06-08 18:03:08 29 L F Residual kt/v 2024-06-08 18:03:08 F KT/V PRESCRIBED 2024-06-08 18:03:08 1.94 F stdKt/V (DIAL) 2024-06-08 18:03:08 N/A F stdKT/V Total 2024-06-08 18:03:08 N/A F BLOOD FLOW-QWB 2024-06-08 18:03:08 332 F CURRENT KRU 2024-06-08 18:03:08 F URR% 2024-06-08 18:03:08 81 % F WEIGHT - PRE DAY 1 2024-06-08 18:03:08 55.3 kg F VM (KT/V MEAN VOL) 2024-06-08 18:03:08 29.9 F Total Kt/V 2024-06-08 18:03:08 1.84 F nPCR 2024-06-08 18:03:08 0.87 G/KG/D F AMPUTATE FACTOR 2024-06-08 18:03:08 0 F TBW (Bragg) 2024-06-08 18:03:08 33.46 Liters F TOTAL HOURS/WEEK DIALYSIS 2024-06-08 18:03:08 10 hrs F Dialyzer MARTHA 2024-06-08 18:03:08 1455 Calc F LENGTH OF DIALYSIS 2024-06-08 18:03:08 211 min F BSA BEVERLY 2024-06-08 18:03:08 1.67 sq m F WEIGHT - POST DAY 1 2024-06-08 18:03:08 54.5 kg F WEIGHT (KG) 2024-06-08 18:03:08 55.5 kg F spKt/V 2024-06-08 18:03:08 1.84 F Creatinine [Mass/volume] in Serum or Plasma 2024-06-08 18:01:16 6.24 mg/dL F 0.7-1.3 Urea nitrogen [Mass/volume] in Serum or Plasma 2024-06-08 18:01:16 53 mg/dL F 9.0-23.0 Urea nitrogen [Mass/volume] in Serum or Plasma --post dialysis 2024-06-08 17:12:14 10 mg/dL F 9.0-23.0 HEIGHT IN INCHES 2024-05-16 02:48:04 69 Inches F WEIGHT (KG) 2024-05-16 02:48:04 54.5 kg F VT (KT/V TX VOL) 2024-05-16 02:48:04 30.2 L F Residual kt/v 2024-05-16 02:48:04 F AMPUTATE FACTOR 2024-05-16 02:48:04 0 F stdKt/V (DIAL) 2024-05-16 02:48:04 N/A F TOTAL HOURS/WEEK DIALYSIS 2024-05-16 02:48:04 3 hrs F Dialyzer MARTHA 2024-05-16 02:48:04 1455 Calc F PATIENT AGE 2024-05-16 02:48:04 63 Years F BSA BEVERLY 2024-05-16 02:48:04 1.65 sq m F WEIGHT - PRE DAY 1 2024-05-16 02:48:04 55 kg F VM (KT/V MEAN VOL) 2024-05-16 02:48:04 30.2 F KT/V PRESCRIBED 2024-05-16 02:48:04 1.94 F Total Kt/V 2024-05-16 02:48:04 1.76 F TBW ([facility]agg) 2024-05-16 02:48:04 33.33 Liters F CURRENT KRU 2024-05-16 02:48:04 F URR% 2024-05-16 02:48:04 81 % F DIALYZER FLOW-QD 2024-05-16 02:48:04 511 mL/min F LENGTH OF DIALYSIS 2024-05-16 02:48:04 209 min F WEIGHT - POST DAY 1 2024-05-16 02:48:04 54.1 kg F PRESCRIBED DAYS/WEEK 2024-05-16 02:48:04 3 Day/Wk F nPCR 2024-05-16 02:48:04 0.57 G/KG/D F spKt/V 2024-05-16 02:48:04 1.76 F eKt/V 2024-05-16 02:48:04 1.49 F Std Renal KT/V 2024-05-16 02:48:04 N/A F stdKT/V Total 2024-05-16 02:48:04 N/A F BLOOD FLOW-QWB 2024-05-16 02:48:04 333 F Creatinine [Mass/volume] in Serum or Plasma 2024-05-16 02:46:13 6.58 mg/dL F 0.7-1.3 Urea nitrogen [Mass/volume] in Serum or Plasma 2024-05-16 02:46:13 79 mg/dL F 9.0-23.0 Urea nitrogen [Mass/volume] in Serum or Plasma --post dialysis 2024-05-15 19:53:14 15 mg/dL F 9.0-23.0 Anemia Description Draw Date Result/Unit Status Ref Range Result Comments HCT CALC HGBX3 2024-06-23 17:17:54 27.6 % F 42.0-52.0 Hemoglobin [Mass/volume] in Blood 2024-06-23 17:17:11 9.2 g/dL F 14.0-18.0 HCT CALC HGBX3 2024-06-08 17:05:13 22.8 % F 42.0-52.0 Hematocrit [Volume Fraction] of Blood by Automated count 2024-06-08 17:04:14 25.8 % F 41.0-53.0 Erythrocyte distribution width [Ratio] by Automated count 2024-06-08 17:04:14 15.1 % F 11.0-15.0 MCH [Entitic mass] by Automated count 2024-06-08 17:04:14 30.1 pg F 25.9-34.2 MCHC [Mass/volume] by Automated count 2024-06-08 17:04:14 29.6 g/dL F 29.6-35.3 Platelets [#/volume] in Blood by Automated count 2024-06-08 17:04:14 527 x 10^3 cells/uL F 140.0-450.0 Erythrocytes [#/volume] in Blood by Automated count 2024-06-08 17:04:14 2.54 x 10^6 cells/uL F 4.6-6.2 Hemoglobin [Mass/volume] in Blood 2024-06-08 17:04:14 7.6 g/dL F 14.0-18.0 MCV [Entitic volume] by Automated count 2024-06-08 17:04:14 101.7 fL F 80.0-100.0 Ferritin [Mass/volume] in Serum or Plasma 2024-05-16 05:04:30 84 ng/mL F 22.0-322.0 HCT CALC HGBX3 2024-05-15 22:18:18 24.3 % F 42.0-52.0 Erythrocyte distribution width [Ratio] by Automated count 2024-05-15 22:17:18 13.7 % F 11.0-15.0 Platelets [#/volume] in Blood by Automated count 2024-05-15 22:17:18 325 x 10^3 cells/uL F 140.0-450.0 MCH [Entitic mass] by Automated count 2024-05-15 22:17:18 32.2 pg F 25.9-34.2 MCV [Entitic volume] by Automated count 2024-05-15 22:17:18 102.8 fL F 80.0-100.0 Hematocrit [Volume Fraction] of Blood by Automated count 2024-05-15 22:17:17 26 % F 41.0-53.0 Erythrocytes [#/volume] in Blood by Automated count 2024-05-15 22:17:17 2.53 x 10'6 cells/uL F 4.6-6.2 Hemoglobin [Mass/volume] in Blood 2024-05-15 22:17:17 8.1 g/dL F 14.0-18.0 MCHC [Mass/volume] by Automated count 2024-05-15 22:17:17 31.3 g/dL F 29.6-35.3 TIBC 2024-05-15 20:22:39 311 ug/dL F 250.0-425.0 IRON SATURATION 2024-05-15 20:22:39 19 % F 21.0-49.0 Iron [Mass/volume] in Serum or Plasma 2024-05-15 20:17:39 59 ug/dL F 65.0-175.0 Iron binding capacity.unsaturated [Mass/volume] in Serum or Plasma 2024-05-15 20:17:39 252 ug/dL F 75.0-360.0 Hemoglobin [Mass/volume] in Blood FluidBP Description Draw Date Result/Unit Status Ref Range Result Comments Sodium [Moles/volume] in Serum or Plasma 2024-06-10 07:05:48 141 mEq/L F 132.0-146.0 Sodium [Moles/volume] in Serum or Plasma 2024-05-16 04:52:45 141 mEq/L F 132.0-146.0 General Description Draw Date Result/Unit Status Ref Range Result Comments Chloride [Moles/volume] in Serum or Plasma 2024-06-10 07:05:48 110 mEq/L F 99.0-109.0 Aspartate aminotransferase [Enzymatic activity/volume] in Serum or Plasma 2024-06-08 18:01:16 10 U/L F 0.0-33.0 Alanine aminotransferase [Enzymatic activity/volume] in Serum or Plasma 2024-06-08 18:01:16 9 U/L F 10.0-49.0 Chloride [Moles/volume] in Serum or Plasma 2024-05-16 04:52:45 109 mEq/L F 99.0-109.0 Aspartate aminotransferase [Enzymatic activity/volume] in Serum or Plasma 2024-05-16 02:46:13 14 U/L F 0.0-33.0 Alanine aminotransferase [Enzymatic activity/volume] in Serum or Plasma 2024-05-15 18:34:21 11 U/L F 10.0-49.0 InfectionVaccination Description Draw Date Result/Unit Status Ref Range Result Comments Neutrophils/100 leukocytes in Blood by Automated count 2024-06-08 17:04:14 59.2 % F Lymphocytes/100 leukocytes in Blood by Automated count 2024-06-08 17:04:14 27.9 % F Eosinophils/100 leukocytes in Blood by Automated count 2024-06-08 17:04:14 6 % F Basophils/100 leukocytes in Blood by Automated count 2024-06-08 17:04:14 0.7 % F Monocytes/100 leukocytes in Blood by Automated count 2024-06-08 17:04:14 6 % F Monocytes [#/volume] in Blood by Automated count 2024-06-08 17:04:14 570 Cells/uL F 0.0-1100.0 Basophils [#/volume] in Blood by Automated count 2024-06-08 17:04:14 66 Cells/uL F 0.0-400.0 Eosinophils [#/volume] in Blood by Automated count 2024-06-08 17:04:14 570 Cells/uL F 0.0-700.0 Leukocytes [#/volume] in Blood by Automated count 2024-06-08 17:04:14 9.5 x 10^3 cells/uL F 4.0-11.0 Neutrophils [#/volume] in Blood by Automated count 2024-06-08 17:04:14 5624 Cells/uL F 2000.0-8800.0 Lymphocytes [#/volume] in Blood by Automated count 2024-06-08 17:04:14 2650 Cells/uL F 620.0-3660.0 Basophils/100 leukocytes in Blood by Automated count 2024-05-15 22:17:18 2.6 % F Neutrophils [#/volume] in Blood by Automated count 2024-05-15 22:17:18 4043 Cells/uL F 2000.0-8800.0 Leukocytes [#/volume] in Blood by Automated count 2024-05-15 22:17:18 7.8 x 10^3 cells/uL F 4.0-11.0 Lymphocytes [#/volume] in Blood by Automated count 2024-05-15 22:17:18 2213 Cells/uL F 620.0-3660.0 Eosinophils [#/volume] in Blood by Automated count 2024-05-15 22:17:17 790 Cells/uL F 0.0-700.0 Neutrophils/100 leukocytes in Blood by Automated count 2024-05-15 22:17:17 51.7 % F Lymphocytes/100 leukocytes in Blood by Automated count 2024-05-15 22:17:17 28.3 % F Monocytes [#/volume] in Blood by Automated count 2024-05-15 22:17:17 579 Cells/uL F 0.0-1100.0 Basophils [#/volume] in Blood by Automated count 2024-05-15 22:17:17 203 Cells/uL F 0.0-400.0 Monocytes/100 leukocytes in Blood by Automated count 2024-05-15 22:17:17 7.4 % F Eosinophils/100 leukocytes in Blood by Automated count 2024-05-15 22:17:17 10.1 % F MineralBone Disorder Description Draw Date Result/Unit Status Ref Range Result Comments CA CORRECTED 2024-06-10 11:02:31 8.9 mg/dL F CA/PHOS PRODUCT 2024-06-10 11:00:54 49.8 Calc F 21.0-53.0 CA*PO4 CORRCTD 2024-06-10 11:00:54 49.8 Calc F 21.0-53.0 Calcium [Mass/volume] in Serum or Plasma 2024-06-10 07:05:48 8.9 mg/dL F 8.7-10.4 Phosphate [Mass/volume] in Serum or Plasma 2024-06-10 07:05:48 5.6 mg/dL F 2.4-5.1 Parathyrin.intact [Mass/volume] in Serum or Plasma 2024-06-08 19:42:23 1420 pg/mL F 18.0-80.0 Alkaline phosphatase [Enzymatic activity/volume] in Serum or Plasma 2024-06-08 18:01:16 184 U/L F 46.0-116.0 Alkaline phosphatase [Enzymatic activity/volume] in Serum or Plasma 2024-05-16 02:46:13 138 U/L F 46.0-116.0 Nutrition Description Draw Date Result/Unit Status Ref Range Result Comments Potassium [Moles/volume] in Serum or Plasma 2024-06-10 07:05:48 5 mEq/L F 3.5-5.5 A/G RATIO 2024-06-08 18:02:49 1.8 Calc F 1.0-2.5 GLOBULIN 2024-06-08 18:02:49 2.5 g/dL F 0.9-5.0 Albumin [Mass/volume] in Serum or Plasma by Bromocresol green (BCG) dye binding method 2024-06-08 18:01:16 4.5 g/dL F 3.4-4.8 Bicarbonate [Moles/volume] in Serum or Plasma 2024-06-08 18:01:16 18 mEq/L F 20.0-31.0 Protein [Mass/volume] in Serum or Plasma 2024-06-08 18:01:16 7 g/dL F 5.7-8.2 Lactate dehydrogenase [Enzymatic activity/volume] in Serum or Plasma 2024-06-08 18:01:16 204 U/L F 120.0-246.0 Potassium [Moles/volume] in Serum or Plasma 2024-05-16 04:52:45 5.8 mEq/L F 3.5-5.5 A/G RATIO 2024-05-16 02:47:25 2 Calc F 1.0-2.5 GLOBULIN 2024-05-16 02:47:25 2.1 g/dL F 0.9-5.0 Bicarbonate [Moles/volume] in Serum or Plasma 2024-05-16 02:46:13 18 mEq/L F 20.0-31.0 Albumin [Mass/volume] in Serum or Plasma by Bromocresol green (BCG) dye binding method 2024-05-16 02:46:13 4.3 g/dL F 3.4-4.8 Lactate dehydrogenase [Enzymatic activity/volume] in Serum or Plasma 2024-05-16 02:46:13 270 U/L F 120.0-246.0 Protein [Mass/volume] in Serum or Plasma 2024-05-16 02:46:13 6.4 g/dL F 5.7-8.2 Encounters No encounter information to report Immunizations Ordered Immunization Name Filled Immunization Name Date Status Comments Refusal Reason Covid-19 Vaccination 2024-05-08 06:00:00 Influenza Vaccination 2024-05-08 06:00:00 pneumococcal polysaccharide PPV23 2021-05-17 06:00:00 Pneumococcal conjugate PCV 13 2020-05-31 06:00:00 Plan of Treatment Planned Activity Provider Planned Date Details Commen ts Diagnostic Test Pending Claudio Jain 2024-06-05 07:35:50 Parathyrin.intact [Mass/volume] in Serum or Plasma [code = 2731-8] Diagnostic Test Pending Claudio Jain 2024-05-14 07:30:48 Alanine aminotransferase [Enzymatic activity/volume] in Serum or Plasma [code = 1742-6] Diagnostic Test Pending Claudio Brownleeht 2024-05-14 06:00:00 Creatinine [Mass/volume] in Serum or Plasma [code = 2160-0] Diagnostic Test Pending Claudio Brownleeht 2024-05-12 22:55:23 Sodium [Moles/volume] in Serum or Plasma [code = 2951-2] Diagnostic Test Pending Claudio Jain 2024-06-24 07:38:28 Ferritin [Mass/volume] in Serum or Plasma [code = 2276-4] Diagnostic Test Pending Claudio Brownleeht 2024-05-18 07:26:48 Hemoglobin [Mass/volume] in Blood [code = 718-7] [facility]:54:04 In-Center Hemodialysis Treatment [code = EKP984] Diet Order Claudio Jones [facility] June 18, 2024 Diet Calorie 40 kcal/kg Fluid Value 1500 mL/d Phosphorus Value 1000 mg/d Potassium Value 2000 mg/d Protein Value 1.4 gm/kg Sodium Value 1500 mg/d Calculated Weight 54 kg
--- OUTSIDE RECORDS SUMMARY | 2024-06-25 01:41 | XMS_ITS | Clinical Summary ---
Author Organization [facility] Address [place], [place] [address] Care Team Providers Care Cider Maker Name Role Phone Pcp, No Unavailable Unavailable Shelia Dietrich DO Primary Care Provider [phone] Allergies Active Allergy Reactions Criticality Noted Date Comments Ranitidine Itching 05/18/2023 Medications aspirin chewable 81 mg chewable tabletIndication s:Hypertension CHEW 1 TABLET (81 MG) BY MOUTH ONCE DAILY. 90 Tablet 3 02/10/2024 Active WalkerIndication s:Foot pain, bilateral Walker with front wheels for home use. 1 Each 05/24/2024 Active atorvastatin (LIPITOR) 40 mg tabletIndication s:Lipid disorder Take 1 Tablet (40 mg) by mouth at bedtime. 30 Tablet 05/25/2024 4:01 PM MUSHROOM FARMER 05/25/2024 Active bumetanide (BUMEX) 2 mg tabletIndication s:HFrEF (heart failure with reduced ejection fraction) (HC) Take 1 Tablet (2 mg) by mouth once daily in the morning. 30 Tablet 05/25/2024 4:01 PM MUSHROOM FARMER 05/25/2024 Active carvediloL (COREG) 6.25 mg tabletIndication s:HFrEF (heart failure with reduced ejection fraction) (HC),Hypertensio n Take 1 Tablet (6.25 mg) by mouth two times daily with meals. 60 Tablet 05/25/2024 4:01 PM MUSHROOM FARMER 05/25/2024 Active amoxicillin-clav ulanate (AUGMENTIN) 500-125 mg tabletIndication s:lower respiratory infection Take 1 Tablet by mouth once daily with a meal. 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 Pancreatic lesion 07/28/2023 Alcohol use disorder 06/18/2023 CHF (congestive heart failure) 05/24/2023 Alcohol use 05/24/2023 Hypertension 05/24/2023 Tobacco use 05/24/2023 ESRD (end stage renal disease) 05/24/2023 Resolved Problems Problem Noted Date Diagnosed Date Resolved Date Alcoholism 05/27/2024 05/27/2024 CKD (chronic kidney disease) stage 5, GFR less than 15 ml/min 04/26/2024 05/06/2024 Acute hypoxic respiratory failure 04/26/2024 05/27/2024 NATLAYA (acute kidney injury) 05/24/2023 Acute respiratory failure with hypoxia 05/19/2023 07/28/2023 Encounters Date Type Department Care Team Description 05/28/2024 Telephone [facility] [address] [place] [address] Shelia Dietrich DO Results 05/27/2024 11:15 AM MUSHROOM FARMER Office Visit [facility] [address] [place] [address] Shelia Dietrich DO Hospital F/U (Has had several hospitalizations for heart failure and ESRD; most recently discharged on 05/26/24) 05/27/2024 Telephone [facility] [address] [place] [address] Ami Smith, RN Appointment (Arrange transportation with [facility]) 05/27/2024 Travel 05/27/2024 Patient Outreach [facility] [address] [place] [address] Deidra Bradley, JOSE LUIS Hospital F/U; Primary RN Care Management (NAKITA 80) 05/17/2024 3:04 PM MUSHROOM FARMER - 05/26/2024 4:30 PM MUSHROOM FARMER Hospital Encounter [facility] [address] [place] [address] Jaden Aguilar MBBS Wirt, DO Alessandra Tai, MD [facility] Charles Edward, MD [facility] Hospitalists Of Foot pain, bilateral (Primary Dx); Transportation insecurity; Other problems related to social environment; Lipid disorder; HFrEF (heart failure with reduced ejection fraction) (HC); Hypertension; Pneumonia due to infectious organism, unspecified laterality, unspecified part of lung Discharge Disposition: Home Self Care 05/17/2024 Travel 05/13/2024 Patient Outreach [facility] Care Management - Advanced Care Team [address] [place] [address] Katherine Carrera LICSW Chronic Kidney Disease (Engagement Outreach) 05/13/2024 Patient Outreach [facility] Care Management - Care Management Navigation/[facility] [address] [place] [address] Brii Hernandes Care Management Intake (Engagement Outreach/) 05/12/2024 Patient Outreach [facility] [address] [place] [address] Aparna Gilmore, RN Primary RN Care Management; Hospital F/U (LACE 64) 05/07/2024 Travel 05/06/2024 11:31 AM MUSHROOM FARMER - 05/11/2024 5:41 PM MUSHROOM FARMER Hospital Encounter [address] [address] [facility] Hospitalist Svc Arun Martinez MD Van Vranken, Benjamin Eugene, MBBS Maki, Mackenzie, MD ESRD (end stage renal disease) (HC) (Primary Dx); Transportation insecurity Discharge Disposition: Against Medical Advice or Discontinued Care 05/05/2024 Telephone [facility] [address] [place] [address] Shelia Dietrich, Concerns 05/03/2024 Patient Outreach [facility] [address] [place] [address] Aparna Gilmore, RN Primary RN Care Management; [facility] 04/28/2024 Travel 04/26/2024 Travel 04/26/2024 Refill [facility] [address] [place] [address] Shelia Dietrich DO Refill Request (Carvedilol 25mg tablet, Furosemide 40mg tablet) 04/25/2024 2:39 PM MUSHROOM FARMER - 04/30/2024 2:37 PM MUSHROOM FARMER Hospital Encounter [facility] [address] [place] [address] Eileen Talavera DO Intensivists, [facility] [place] Internal Wesandrea, Ward Shah, Douglas Boyer MBBS Gunder, Adam Lee, MD HFrEF (heart failure with reduced ejection fraction) (HC) (Primary Dx); Hypertension; Dermatitis; CKD (chronic kidney disease) stage 5, GFR less than 15 ml/min (HC) Discharge Disposition: Home Self Care 04/20/2024 Refill [facility] [address] [place] [address] Shelia Dietrich DO Refill Request (Furosemide 40mg tablet) from Last 3 Months Immunizations Name Administration Dates Next Due COVID-19 VACCINE SPIKEVAX (M ODERNA 50MCG/0.5ML) 12YO+ PFS 05/08/2024 COVID-19 vaccine (Pfizer-Bio NTech 30mcg/0.3mL) 12YO+ BIVALENT PF, MDV 02/20/2022 COVID-19 vaccine (NaturalMotion NTShow de Ingressos 30mcg/0.3mL) PF, MDV 04/04/2021,09/11/2020,08/21/2020 Hepatitis A (Adult) 04/07/2019,05/17/2008,2006 INFLUENZA, IIV3 PF (AGE >= 6 MO) 05/08/2024 Influenza A (H1N1), Inactivated 06/06/2009 Influenza, IIV3 (Age 6-35 mos) 9,02/04/2018,03/11/2017,2008,03/11/2007 Influenza, IIV3 (Age >=3 years) 05/20/20 14,09/18/2010,02/21/2009,2007,03/01/2003 Influenza, IIV4 02/20/2022,,05/31/2020,2015 Pneumococcal Poly,23-Valent (Pneumovax) 05/17/2008 Pneumococcal conj 13-Valent (Prevnar 13) 05/31/2020 Td (Age >=7 Years) 01/16/2003 Tdap 10/09/2012 Zoster (Shingrix-RZV, recombinant) 05/31/2020, Social History Tobacco Use Types Packs/Day Years Used Date Smoking Tobacco: Every Day Cigarettes Tobacco Cessation:Ready to Q uit: No; Counseling Given: Yes Alcohol Use Standard Drinks/Week Comments Not Currently 0 (1 standard drink = 0.6 oz pur e alcohol) Social Connections Answer Date Recorded Do you often feel lonely or isolated from those around you? 4 05/19/2024 Financial Resource Strain Answer Date R ecorded Difficulty of Paying Living Expenses 3 05/07/2024 Difficulty of Paying Living Expenses Not on file 05/07/2024 Food Insecurity Answer Date Recorded Do you worry your food will run out before you are able to buy more? 1 05/19/2024 Transportation Needs Answer Date Record ed Does lack of transportation keep you from medica l appointments? 2 05/19/2024 Does lack of transportation keep you from work, meetings or getting things that you need? 2 05/19/2024 Housing Stability Answer Date Recorded What is your housing situation today? 1 05/19/2024 Interpersonal Safety Answer Date Record ed Are you being hit, kicked, p ushed or yelled at (see row info)? No 05/17/2024 Interpersonal Safety Abuse 12 - 18 Not on file 05/17/2024 Interpersonal Safety Ambulatory Vulnerability No t on file 05/17/2024 Utilities Answer Date Recorded Do you have trouble paying f or utilities (for example, heat, electricity, water, phone)? 1 05/19/2024 Sex and Gender Information Value Date Recorded Sex Assigned at Not on file Legal Sex Male 4:18 PM MUSHROOM FARMER Gender Identity Not on file Sexual Orientation Not on file Obstetrics History Last Filed Vital Signs Vital Sign Reading Time Taken Comments Blood Pressure 113/84 05/27/2024 11:20 AM MUSHROOM FARMER Pulse 92 05/27/2024 11:20 AM MUSHROOM FARMER Temperature 36.4 C (97.6 F) 05/26/2024 12:15 PM MUSHROOM FARMER Respiratory Rate 18 05/26/2024 1:19 PM MUSHROOM FARMER Oxygen Saturation 99% 05/27/2024 11:20 AM MUSHROOM FARMER Inhaled Oxygen Concentration - - Weight 56.7 kg (125 lb) 05/27/2024 11:20 AM MUSHROOM FARMER with coat Height 174 cm (5' 8.5) 05/17/2024 3:00 PM MUSHROOM FARMER Body Mass Index 18.73 05/17/2024 3:00 PM MUSHROOM FARMER Plan of Treatment Upcoming Encounters Date Type Department Care Team (Late st Contact Info) Description 06/29/2024 10:30 AM MUSHROOM FARMER Ancillary Procedure [facility] [address] [place] [address] Health Maintenance Due Date Last Done Comments Depression screening for age 12+ 1972 HIV for age 15-65 09/10/1975 Colonoscopy through age 75 2005 Lipids for age 45-75 2005 Pneumococcal series for age 50+ (3 of 3 - PPSV23, PCV20 or PCV21) 07/26/2020 05/31/2020, 05/17/2008 RSV vaccine for adults or (1 - Risk 60-74 years 1-dose series) 2020 Tetanus booster 10/09/2022 10/09/2012, 01/16/2003 BMI (ht and wt on same day) for age 18+ 07/27/2024 07/28/2023 Tdap Completed 10/09/2012 Zoster (shingles) series for age 50+ Completed 05/31/2020, 02/05/2019 Hepatitis C screening for ag e 18-79 Completed 04/28/2024 COVID-19 vaccine series Completed 05/08/20, 02/20/2022, 04/04/2021, Additional history exists Influenza for age 50-64 Completed 05/08/20, 02/20/2022, 04/04/2021, Additional history exists Procedures Procedure Name Priority Date/Time Associated Diagnosis Comments HEMOGLOBIN Routine 05/27/2024 12:29 PM MUSHROOM FARMER Anemia of chronic renal failure, stage 5 (HC) BASIC METABOLIC PANEL Routine 05/27/2024 12:29 PM MUSHROOM FARMER Anemia of chronic renal failure, stage 5 (HC) VITAMIN D 25 (DEFICIENCY) Routine 05/27/2024 12:29 PM MUSHROOM FARMER Vitamin D deficiency POTASSIUM Early AM 05/25/2024 9:11 AM MUSHROOM FARMER SODIUM Early AM 05/25/2024 9:11 AM MUSHROOM FARMER WHITE BLOOD COUNT Early AM 05/25/2024 9:1 1 AM MUSHROOM FARMER PLATELET COUNT Early AM 05/25/2024 9:11 AM MUSHROOM FARMER HEMOGLOBIN Early AM 05/25/2024 9:[address] CHEST WO Routine 05/24/2024 1:53 PM MUSHROOM FARMER HBV REAL TIME PCR QUANT Today 05/20/2024 1:58 PM MUSHROOM FARMER RENAL FUNCTION PANEL Early AM 05/20/2024 1:58 PM MUSHROOM FARMER MAGNESIUM Early AM 05/20/2024 1:58 PM MUSHROOM FARMER CBC W PLT NO DIFF Early AM 05/20/2024 1:5 7 PM MUSHROOM FARMER PHOSPHORUS Early AM 05/19/2024 3:27 PM MUSHROOM FARMER MAGNESIUM Early AM 05/19/2024 3:27 PM MUSHROOM FARMER CBC W PLT NO DIFF Early AM 05/19/2024 3:2 7 PM MUSHROOM FARMER BASIC METABOLIC PANEL Early AM 05/19/2024 3:27 PM MUSHROOM FARMER GLUCOSE METER Timed 05/18/2024 11:30 PM MUSHROOM FARMER GLUCOSE METER Timed 05/18/2024 5:52 PM MUSHROOM FARMER HCV RT-PCR, QUANT (NON-GRAPH) Today 05/18/2024 10:30 AM MUSHROOM FARMER SCAN CORRESP-EKG RESULTS 05/18/2024 10:24 AM MUSHROOM FARMER SCAN CORRESP-EKG RESULTS 05/18/2024 10:24 AM MUSHROOM FARMER SCAN CORRESP-IMAGING 05/18/2024 10:24 AM MUSHROOM FARMER BLOOD GAS,VENOUS Early AM 05/18/2024 4:58 AM MUSHROOM FARMER CBC W PLT NO DIFF Early AM 05/18/2024 4:5 8 AM MUSHROOM FARMER PHOSPHORUS Early AM 05/18/2024 4:57 AM MUSHROOM FARMER MAGNESIUM Early AM 05/18/2024 4:57 AM MUSHROOM FARMER BASIC METABOLIC PANEL Early AM 05/18/2024 4:57 AM MUSHROOM FARMER SCAN-CARDIAC STRIP 05/17/2024 10 :36 PM MUSHROOM FARMER GLUCOSE METER Timed 05/17/2024 9:54 PM MUSHROOM FARMER CBC WITH AUTO DIFFERENTIAL STAT 05/17/2024 4:42 PM MUSHROOM FARMER CBC WITH AUTO DIFFERENTIAL STAT 05/17/2024 4:42 PM MUSHROOM FARMER BLOOD GAS,VENOUS Today 05/17/2024 4:04 PM MUSHROOM FARMER FERRITIN PIYUSH 05/17/2024 4:03 PM MUSHROOM FARMER IRON PLUS IRON BINDING CAP PIYUSH 05/17/2024 4:03 PM MUSHROOM FARMER PRO-BNP Today 05/17/2024 4:03 PM MUSHROOM FARMER LACTATE VENOUS Timed 05/17/2024 4:03 PM MUSHROOM FARMER PROCALCITONIN Today 05/17/2024 4:03 PM MUSHROOM FARMER HEPATIC FUNCTION PANEL STAT 4:03 PM MUSHROOM FARMER BASIC METABOLIC PANEL STAT 05/17/2024 4:03 PM MUSHROOM FARMER GLUCOSE METER Timed 05/17/2024 3:34 PM MUSHROOM FARMER SCAN CORRESP-EKG RESULTS 05/12/2024 2:[address] CHEST W Routine 05/11/2024 1:15 PM MUSHROOM FARMER CBC WITH AUTO DIFFERENTIAL PIYUSH 05/11/2024 10:50 AM MUSHROOM FARMER CBC WITH AUTO DIFFERENTIAL PIYUSH 05/11/2024 10:50 AM MUSHROOM FARMER QFT MITOGEN PERFORMABLE Early AM 05/11/2024 10:50 AM MUSHROOM FARMER QFT TB2 PERFORMABLE Early AM 05/11/2024 1 0:50 AM MUSHROOM FARMER QFT TB1 PERFORMABLE Early AM 05/11/2024 1 0:50 AM MUSHROOM FARMER QUANTIFERON TB GOLD PLUS Early AM 05/11/2024 10:50 AM MUSHROOM FARMER HEMOGLOBIN Early AM 05/11/2024 10:50 AM MUSHROOM FARMER BASIC METABOLIC PANEL Early AM 05/11/2024 10:50 AM MUSHROOM FARMER QUANTIFERON TB GOLD PLUS Early AM 05/11/2024 10:50 AM MUSHROOM FARMER SCAN-CARDIAC STRIP 05/10/2024 11 :50 PM MUSHROOM FARMER SCAN-CARDIAC STRIP 05/10/2024 11 :50 PM MUSHROOM FARMER SCAN-CARDIAC STRIP 05/10/2024 11 :50 PM MUSHROOM FARMER SCAN-CARDIAC STRIP 05/10/2024 11 :50 PM MUSHROOM FARMER SCAN-CARDIAC STRIP 05/10/2024 5: 10 PM MUSHROOM FARMER SCAN-CARDIAC STRIP 05/10/2024 5: 10 PM MUSHROOM FARMER SCAN-CARDIAC STRIP 05/10/2024 5: 10 PM MUSHROOM FARMER SCAN-CARDIAC STRIP 05/10/2024 5: 10 PM MUSHROOM FARMER SCAN CORRESP-IMAGING 05/10/2024 9:46 AM MUSHROOM FARMER SCAN-CARDIAC STRIP 05/10/2024 9: 13 AM MUSHROOM FARMER SCAN-CARDIAC STRIP 05/10/2024 9: 13 AM MUSHROOM FARMER SCAN-CARDIAC STRIP 05/10/2024 9: 13 AM MUSHROOM FARMER SCAN-CARDIAC STRIP 05/10/2024 9: 13 AM MUSHROOM FARMER CBC W PLT NO DIFF Early AM 05/10/2024 7:0 2 AM MUSHROOM FARMER BASIC METABOLIC PANEL Early AM 05/10/2024 7:02 AM MUSHROOM FARMER SCAN-CARDIAC STRIP 05/10/2024 12 :07 AM MUSHROOM FARMER SCAN-CARDIAC STRIP 05/10/2024 12 :07 AM MUSHROOM FARMER SCAN-CARDIAC STRIP 05/10/2024 12 :07 AM MUSHROOM FARMER SCAN-CARDIAC STRIP 05/10/2024 12 :07 AM MUSHROOM FARMER SCAN-CARDIAC STRIP 05/09/2024 9: 14 PM MUSHROOM FARMER SCAN-CARDIAC STRIP 05/09/2024 9: 14 PM MUSHROOM FARMER SCAN-CARDIAC STRIP 05/09/2024 9: 14 PM MUSHROOM FARMER SCAN-CARDIAC STRIP 05/09/2024 9: 14 PM MUSHROOM FARMER SCAN-CARDIAC STRIP 05/09/2024 4: 19 PM MUSHROOM FARMER SCAN-CARDIAC STRIP 05/09/2024 4: 19 PM MUSHROOM FARMER SCAN-CARDIAC STRIP 05/09/2024 4: 19 PM MUSHROOM FARMER SCAN-CARDIAC STRIP 05/09/2024 4: 19 PM MUSHROOM FARMER SCAN-CARDIAC STRIP 05/09/2024 7: 15 AM MUSHROOM FARMER SCAN-CARDIAC STRIP 05/09/2024 7: 15 AM MUSHROOM FARMER SCAN-CARDIAC STRIP 05/09/2024 7: 15 AM MUSHROOM FARMER SCAN-CARDIAC STRIP 05/09/2024 7: 15 AM MUSHROOM FARMER SCAN-CARDIAC STRIP 05/09/2024 12 :48 AM MUSHROOM FARMER SCAN-CARDIAC STRIP 05/09/2024 12 :48 AM MUSHROOM FARMER SCAN-CARDIAC STRIP 05/09/2024 12 :48 AM MUSHROOM FARMER SCAN-CARDIAC STRIP 05/09/2024 12 :48 AM MUSHROOM FARMER SCAN-CARDIAC STRIP 05/08/2024 7: 43 PM MUSHROOM FARMER SCAN-CARDIAC STRIP 05/08/2024 7: 43 PM MUSHROOM FARMER SCAN-CARDIAC STRIP 05/08/2024 7: 43 PM MUSHROOM FARMER SCAN-CARDIAC STRIP 05/08/2024 7: 43 PM MUSHROOM FARMER SCAN-CARDIAC STRIP 05/08/2024 3: 43 PM MUSHROOM FARMER SCAN-CARDIAC STRIP 05/08/2024 3: 43 PM MUSHROOM FARMER SCAN-CARDIAC STRIP 05/08/2024 3: 43 PM MUSHROOM FARMER SCAN-CARDIAC STRIP 05/08/2024 3: 43 PM MUSHROOM FARMER SCAN-CARDIAC STRIP 05/08/2024 7: 19 AM MUSHROOM FARMER SCAN-CARDIAC STRIP 05/08/2024 7: 19 AM MUSHROOM FARMER SCAN-CARDIAC STRIP 05/08/2024 7: 19 AM MUSHROOM FARMER SCAN-CARDIAC STRIP 05/08/2024 7: 19 AM MUSHROOM FARMER SCAN-CARDIAC STRIP 05/08/2024 1: 00 AM MUSHROOM FARMER SCAN-CARDIAC STRIP 05/08/2024 1: 00 AM MUSHROOM FARMER SCAN-CARDIAC STRIP 05/08/2024 1: 00 AM MUSHROOM FARMER SCAN-CARDIAC STRIP 05/08/2024 1: 00 AM MUSHROOM FARMER SCAN-CARDIAC STRIP 05/07/2024 9: 08 PM MUSHROOM FARMER SCAN-CARDIAC STRIP 05/07/2024 9: 08 PM MUSHROOM FARMER SCAN-CARDIAC STRIP 05/07/2024 9: 08 PM MUSHROOM FARMER SCAN-CARDIAC STRIP 05/07/2024 9: 08 PM MUSHROOM FARMER SCAN-CARDIAC STRIP 05/07/2024 5: 03 PM MUSHROOM FARMER SCAN-CARDIAC STRIP 05/07/2024 5: 03 PM MUSHROOM FARMER SCAN-CARDIAC STRIP 05/07/2024 5: 03 PM MUSHROOM FARMER SCAN-CARDIAC STRIP 05/07/2024 5: 03 PM MUSHROOM FARMER XR CHEST 1 VIEW PORTABLE Routine 05/07/2024 4:49 PM MUSHROOM FARMER SCAN-CARDIAC STRIP 05/07/2024 12 :39 PM MUSHROOM FARMER SCAN-CARDIAC STRIP 05/07/2024 12 :39 PM MUSHROOM FARMER SCAN-CARDIAC STRIP 05/07/2024 12 :39 PM MUSHROOM FARMER SCAN-CARDIAC STRIP 05/07/2024 12 :39 PM MUSHROOM FARMER ECHO TTE LIMITED WO CONTRAST W COLOR W LTD DOPPLER Routine 05/07/2024 11:27 AM MUSHROOM FARMER SCAN-CARDIAC STRIP 05/07/2024 9: 32 AM MUSHROOM FARMER SCAN-CARDIAC STRIP 05/07/2024 9: 32 AM MUSHROOM FARMER SCAN-CARDIAC STRIP 05/07/2024 9: 32 AM MUSHROOM FARMER SCAN-CARDIAC STRIP 05/07/2024 9: 32 AM MUSHROOM FARMER PLATELET COUNT Early AM 05/07/2024 4:41 AM MUSHROOM FARMER HEMOGLOBIN Early AM 05/07/2024 4:41 AM MUSHROOM FARMER WHITE BLOOD COUNT Early AM 05/07/2024 4:4 1 AM MUSHROOM FARMER MAGNESIUM Early AM 05/07/2024 4:41 AM MUSHROOM FARMER POTASSIUM Early AM 05/07/2024 4:41 AM MUSHROOM FARMER SODIUM Early AM 05/07/2024 4:41 AM MUSHROOM FARMER TROPONIN T (HS) ONE TIME Timed 05/07/2024 1:36 AM MUSHROOM FARMER SCAN-CARDIAC STRIP 05/07/2024 12 :00 AM MUSHROOM FARMER SCAN-CARDIAC STRIP 05/07/2024 12 :00 AM MUSHROOM FARMER SCAN-CARDIAC STRIP 05/07/2024 12 :00 AM MUSHROOM FARMER SCAN-CARDIAC STRIP 05/07/2024 12 :00 AM MUSHROOM FARMER MAGNESIUM Today 05/06/2024 11:07 PM MUSHROOM FARMER BASIC METABOLIC PANEL Today 05/06/2024 11:07 PM MUSHROOM FARMER TROPONIN T (HS) ACUTE W/2HR REFLEX STAT 05/06/2024 11:07 PM MUSHROOM FARMER EKG 12 LEAD Routine 05/06/2024 10:20 PM MUSHROOM FARMER SCAN-CARDIAC STRIP 05/06/2024 3: 52 PM MUSHROOM FARMER SCAN-CARDIAC STRIP 05/06/2024 3: 52 PM MUSHROOM FARMER SCAN-CARDIAC STRIP 05/06/2024 3: 52 PM MUSHROOM FARMER SCAN-CARDIAC STRIP 05/06/2024 3: 52 PM MUSHROOM FARMER LACTATE VENOUS Today 05/06/2024 3:17 PM MUSHROOM FARMER BLOOD GAS,VENOUS Today 05/06/2024 3:17 PM MUSHROOM FARMER SCAN-CARDIAC STRIP 05/06/2024 12 :42 PM MUSHROOM FARMER SCAN-CARDIAC STRIP 05/06/2024 12 :42 PM MUSHROOM FARMER SCAN-CARDIAC STRIP 05/06/2024 12 :42 PM MUSHROOM FARMER BASIC METABOLIC PANEL Early AM 04/30/2024 5:00 AM MUSHROOM FARMER PHOSPHORUS PIYUSH 04/29/2024 11:40 PM MUSHROOM FARMER MAGNESIUM PIYUSH 04/29/2024 11:40 PM MUSHROOM FARMER POTASSIUM PIYUHS 04/29/2024 11:40 PM MUSHROOM FARMER HEMOGLOBIN Early AM 04/29/2024 5:11 AM MUSHROOM FARMER US VEIN MAPPING UPPER EXTREMITY BILATERAL Routine 04/28/2024 9:45 PM MUSHROOM FARMER IR CENTRAL VENOUS ACCESS/PORT Routine 04/28/2024 10:48 AM MUSHROOM FARMER FERRITIN PIYUSH 04/28/2024 5:01 AM MUSHROOM FARMER IRON PLUS IRON BINDING CAP PIYUSH 04/28/2024 5:01 AM MUSHROOM FARMER BASIC METABOLIC PANEL PIYUSH 04/28/2024 5:01 AM MUSHROOM FARMER HCV RT-PCR, QUANT (NON-GRAPH) Timed 04/28/2024 5:01 AM MUSHROOM FARMER ANTI HBS QUANT AHS Early AM 04/28/2024 5: 01 AM MUSHROOM FARMER ANTI HBC Early AM 04/28/2024 5:01 AM MUSHROOM FARMER ANTI HCV Early AM 04/28/2024 5:01 AM MUSHROOM FARMER SCAN-OPERATIVE/PROCEDU RE REPORT 04/28/2024 12:00 AM MUSHROOM FARMER HBSAG (HBS) PIYUSH 04/27/2024 2:04 PM MUSHROOM FARMER PROTIME-INR Today 04/27/2024 2:04 PM MUSHROOM FARMER VITAMIN D 25 (DEFICIENCY) Today 04/27/2024 2:04 PM MUSHROOM FARMER CALCIUM IONIZED HOSPITAL DRAW ONLY Today 04/27/2024 2:04 PM MUSHROOM FARMER CK TOTAL Today 04/27/2024 2:04 PM MUSHROOM FARMER PTH,INTACT Today 04/27/2024 2:04 PM MUSHROOM FARMER PRO-BNP Today 04/27/2024 2:04 PM MUSHROOM FARMER RENAL FUNCTION PANEL Today 04/27/2024 2:04 PM MUSHROOM FARMER CBC W PLT NO DIFF Today 04/27/2024 2:0 4 PM MUSHROOM FARMER GLUCOSE METER Timed 04/27/2024 8:35 AM MUSHROOM FARMER SCAN CORRESP-LABORATORY RESULTS 04/26/2024 4:06 PM MUSHROOM FARMER SCAN CORRESP-IMAGING 04/26/2024 4:06 PM MUSHROOM FARMER GLUCOSE METER Timed 04/26/2024 3:37 PM MUSHROOM FARMER ECHO TTE COMPLETE W CONTRAST Routine 04/26/2024 2:06 PM MUSHROOM FARMER XR CHEST 2 VIEWS PA AND LATERAL Routine 04/26/2024 12:36 PM MUSHROOM FARMER GLUCOSE METER Timed 04/26/2024 8:28 AM MUSHROOM FARMER PHOSPHORUS Early AM 04/26/2024 5:58 AM MUSHROOM FARMER BLOOD GAS,VENOUS Early AM 04/26/2024 5:58 AM MUSHROOM FARMER CBC W PLT NO DIFF Early AM 04/26/2024 5:5 8 AM MUSHROOM FARMER BASIC METABOLIC PANEL Timed 04/26/2024 5:58 AM MUSHROOM FARMER PHOSPHORUS PIYUSH 04/25/2024 2:59 PM MUSHROOM FARMER LACTATE VENOUS STAT 04/25/2024 2:59 PM MUSHROOM FARMER BLOOD GAS,VENOUS STAT 04/25/2024 2:59 PM MUSHROOM FARMER BASIC METABOLIC PANEL STAT 04/25/2024 2:59 PM MUSHROOM FARMER SCAN-CARDIAC STRIP 04/25/2024 2: 58 PM MUSHROOM FARMER GLUCOSE METER Timed 04/25/2024 2:48 PM MUSHROOM FARMER from Last 3 Months Results * (ABNORMAL) VITAMIN D 25 (DEFICIENCY) (05/27/2024 12:29 PM MUSHROOM FARMER) Only the most recent of2 resultswithin the time period is included. VITAMIN D,25-OH,TOTAL,IA 19(L) 30 - 100 ng/mL [facility] Comment: Vitamin D Status 25-OH Vitamin D: Deficiency: <20 ng/mL Insufficiency: 20 - 29 ng/mL Optimal: > or = 30 ng/mL For 25-OH Vitamin D testing on patients on D2-supplementation and patients for whom quantitation of D2 and D3 fractions is required, the QuestAssureD(TM) 25-OH VIT D, (D2,D3), LC/MS/MS is recommended: order code 49591 (patients >2yrs). See Note 1 Note 1 For additional information, please refer to http://education.Appia/faq/DSE714 (This link is being provided for informational/ educational purposes only.) Blood BLOOD SPECIMEN / Unknown 05/27/2024 12:29 PM MUSHROOM FARMER 05/27/2024 12:29 PM MUSHROOM FARMER us Shelia Dietrich DO SEND OUTS Final Resu lt Performing Organization Address [facility]/ZIP Co de Phone Number [employer] [facility] [address] [place] [address], [place] [phone] [facility] [address] [place] [address] * (ABNORMAL) HEMOGLOBIN (05/27/2024 12:29 PM MUSHROOM FARMER) Only the most recent of5 resultswithin the time period is included. HEMOGLOBIN 7.7(L) 13.2 - 17.1 g/dL [facility] Blood BLOOD SPECIMEN / Unknown 05/27/2024 12:29 PM MUSHROOM FARMER 05/27/2024 12:29 PM MUSHROOM FARMER us Shelia Dietrich DO HEMATOLOGY Final Resu lt Performing Organization Address [facility]/ZIP Co de Phone Number [employer] [facility] [address] [place] [address], [place] [phone] [facility] [address] [place] [address] * (ABNORMAL) BASIC METABOLIC PANEL (05/27/2024 12:29 PM MUSHROOM FARMER) Only the most recent of11 resultswithin the time period is included. GLUCOSE 97 65 - 99 mg/dL [facility] Comment: Fasting reference interval UREA NITROGEN (BUN) 31(H) 7 - 25 mg/dL [facility] CREATININE 4.66(H) 0.70 - 1.35 mg/dL [facility] EGFR 13(L) > OR = 60 mL/min/1.7 3m2 [facility] BUN/CREATININE RATIO 7 6 - 22 (calc) [facility] SODIUM 136 135 - 146 mmol/L [facility] POTASSIUM 5.1 3.5 - 5.3 mmol/L [facility] CHLORIDE 97(L) 98 - 110 mmol/L [facility] CARBON DIOXIDE 23 20 - 32 mmol/L [facility] ELECTROLYTE BALANCE 16 7 - 17 mmol/L (calc) [facility] CALCIUM 9.6 8.6 - 10.3 mg/dL [facility] Blood BLOOD SPECIMEN / Unknown 05/27/2024 12:29 PM MUSHROOM FARMER 05/27/2024 12:29 PM MUSHROOM FARMER Shelia Dietrich DO CHEMISTRY Final Resu lt [facility] [employer] [facility] [facility] [address] [place] [address], [facility] [address] [place] [address] * (ABNORMAL) PLATELET COUNT (05/25/2024 9:11 AM MUSHROOM FARMER) Only the most recent of2 resultswithin the time period is included. PLATELET COUNT 275 140 - 440 thou/cu mm 05/25/2024 9:27 AM MUSHROOM FARMER [facility] TRAL LABORATORY MPV 11.5(H) 6.5 - 11.0 fL 05/25/2024 9:27 AM MUSHROOM FARMER [facility] TRAL LABORATORY Blood BLOOD SPECIMEN / Unknown Butterfly / Unknown 05/25/2024 9:11 AM MUSHROOM FARMER 05/25/2024 9:21 AM MUSHROOM FARMER Shen Graves MD HEMATOLOGY Fin al Result Performing Organization Address City/[facility]/ZIP Co de Phone Number [facility] [address] [place] [phone], [place] * WHITE BLOOD COUNT (05/25/2024 9:11 AM MUSHROOM FARMER) Only the most recent of2 resultswithin the time period is included. WHITE BLOOD COUNT 9.7 4.5 - 11.0 thou/cu mm 05/25/2024 9:27 AM MUSHROOM FARMER [facility] NRBC 0.0 % 05/25/2024 9:27 AM MUSHROOM FARMER [facility] ABS NRBC 0.0 thou /cu mm 05/25/2024 9:27 AM MUSHROOM FARMER [facility] Blood BLOOD SPECIMEN / Unknown Butterfly / Unknown 05/25/2024 9:11 AM MUSHROOM FARMER 05/25/2024 9:21 AM MUSHROOM FARMER Shen Graves MD HEMATOLOGY Fin al Result Performing Organization Address [facility] Co de Phone Number [facility] [address] [phone], [place] * (ABNORMAL) SODIUM (05/25/2024 9:11 AM MUSHROOM FARMER) Only the most recent of2 resultswithin the time period is included. SODIUM 133(L) 136 - 145 mmol/L 05/25/2024 9:41 AM MUSHROOM FARMER [facility] Blood BLOOD SPECIMEN / Unknown Butterfly / Unknown 05/25/2024 9:11 AM MUSHROOM FARMER 05/25/2024 9:21 AM MUSHROOM FARMER Shen Graves MD CHEMISTRY Fin al Result Performing Organization Address City/[facility]/ZIP Co de Phone Number [facility] [address] [place] [id number], [place] * POTASSIUM (05/25/2024 9:11 AM MUSHROOM FARMER) Only the most recent of3 resultswithin the time period is included. POTASSIUM 4.6 3.5 - 5.1 mmol/L 05/25/2024 9:41 AM MUSHROOM FARMER [facility] LAB[facility] Blood BLOOD SPECIMEN / Unknown Butterfly / Unknown 05/25/2024 9:11 AM MUSHROOM FARMER 05/25/2024 9:21 AM MUSHROOM FARMER Shen Graves MD CHEMISTRY Fin al Result [facility] [address] [place] [address], [place] * CT Chest without contrast (05/24/2024 1:53 PM MUSHROOM FARMER) Anatomical Region Laterality Modality CHEST, THORAX, HEART Computed To mography 05/24/2024 2:26 PM MUSHROOM FARMER Impressions 05/24/2024 2:26 PM MUSHROOM FARMER 1. No significant change in the large masslike area of consolidation in the right lower lobe. Pulmonary consultation suggested. Bronchoscopic evaluation may be helpful. 2. New more focal infiltrate or atelectasis left lung base. 3. Vascular calcification in the chest and abdomen including the coronary artery distribution. 4. Left adrenal gland nodule/adenoma. Surgically absent gallbladder. Small hemorrhagic or proteinaceous left renal cyst. Please note that all CT scans at this facility use dose modulation, iterative reconstruction, and/or weight-based dosing when appropriate to reduce radiation dose to as low as reasonably achievable. Dictated by Trevor Cleary MD @ 05/24/2024 2:26:14 PM (Electronically Signed) Narrative 05/24/2024 2:26 PM MUSHROOM FARMER For Patients: As a result of the Century Cures Act, medical imaging exams and procedure reports are released immediately into your electronic medical record. You may view this report before your referring provider. If you have questions, please contact your health care provider. INDICATION: 63 year-old male. Follow-up a right lower lobe masslike consolidation/infiltrate. TECHNIQUE: Noncontrast chest CT. COMPARISON: Contrast-enhanced chest CT May 11, 2024. Correlation is made with a two-view chest x-ray May 07, 2024 and April 26, 2024. FINDINGS: Stable right-sided dual lumen venous access catheter with tip in the mid superior vena cava. Again noted is a large masslike area of consolidation involving the right lower lobe posteriorly measuring 4.4 x 6.4 x 8.9 cm previously 6.5 x 5.1 x 6.7 cm possibly infectious or inflammatory in nature but not significantly changed compared to May 11, 2024. There is a new focus of dense arterial vascular consolidation or atelectasis at the left lung base image 452 series 4. Subpleural fibrosis at the lung bases. Mild bronchial wall thickening right lung base. No pleural or pericardial effusion. Dense arterial vascular calcification within the thoracic aorta and coronary artery distribution. Coronary artery stents are not excluded. Mildly prominent precarinal lymph node unchanged measuring up to 1.3 cm. Images of the upper abdomen demonstrate dense vascular calcifications within the visualized aorta. No splenomegaly. Surgically absent gallbladder. There is a small hemorrhagic or proteinaceous cyst superior lateral left kidney measuring up to 1 cm. Stable 2.2 cm left adrenal gland nodule likely an adenoma. Old bilateral rib fractures. Procedure Note Trevor Cleary MD - 05/24/2024 For Patients: As a result of the Cures Act, medical imagingexams and procedure reports are released immediately into your electronicmedical record. You may view this report before your referring provider.If you have questions, please contact your health care provider. INDICATION: 63 year-old male. Follow-up a right lower lobe masslikeconsolidation/infiltrate. TECHNIQUE: Noncontrast chest CT. COMPARISON: Contrast-enhanced chest CT May 11, 2024. Correlation is made [facility] a [facility] FINDINGS: Stable right-sided dual lumen venous access catheter with tip in the midsuperior vena cava. Again noted is a large masslike area of consolidation involving the rightlower lobe posteriorly measuring 4.4 x 6.4 x 8.9 cm previously 6.5 x 5.1 x6.7 cm possibly infectious or inflammatory in nature but not significantlychanged compared to May 11, 2024. There is a new focus of densearterial vascular consolidation or atelectasis at the left lung base [id number] series 4. Subpleural fibrosis at the lung bases. Mild bronchial wall thickeningright lung base. No pleural or pericardial effusion. Dense arterialvascular calcification within the thoracic aorta and coronary arterydistribution. Coronary artery stents are not excluded. Mildly prominentprecarinal lymph node unchanged measuring up to 1.3 cm. Images of the upper abdomen demonstrate dense vascular calcificationswithin the visualized aorta. No splenomegaly. Surgically absentgallbladder. There is a small hemorrhagic or proteinaceous cyst superiorlateral left kidney measuring up to 1 cm. Stable 2.2 cm left adrenal glandnodule likely an adenoma. Old bilateral rib fractures. IMPRESSION: 1. No significant change in the large masslike area of consolidation inthe right lower lobe. Pulmonary consultation suggested. Bronchoscopicevaluation may be helpful. 2. New more focal infiltrate or atelectasis left lung base. 3. Vascular calcification in the chest and abdomen including the coronaryartery distribution. 4. Left adrenal gland nodule/adenoma. Surgically absent gallbladder. Smallhemorrhagic or proteinaceous left renal cyst. Please note that all CT scans at this facility use dose modulation,iterative reconstruction, and/or weight-based dosing when appropriate toreduce radiation dose to as low as reasonably achievable. Dictated by Trevor Cleary MD @ 05/24/2024 2:26:14 PM (Electronically Signed) us Sheyla Aparicio MD CT Final Resu lt * HBV REAL TIME PCR QUANT (05/20/2024 1:58 PM MUSHROOM FARMER) HBV IU mL HBV DNA not detected IU/mL 05/23/2024 6:06 PM MUSHROOM FARMER [facility]erBee Virtual [facility]ants[facility] log10 HBV IU mL 05/23/2024 6:[address] [facility] Comment: Unable to calculate result since non-numeric result obtained for component test. HBV Test Info Comment 05/23/2024 6:06 PM MUSHROOM FARMER WorkerBee Virtual AssistantsCH[facility] Comment:The reportable range for this assay is 10 IU/mL to 1 billion IU/mL. Blood BLOOD SPECIMEN / Unknown Non-Lab Venipuncture / Unknown 05/20/2024 1:58 PM MUSHROOM FARMER 05/20/2024 2:09 PM MUSHROOM FARMER Narrative [facility] (CET) - 05/23/2024 6:06 PM MUSHROOM FARMER Performed at: 01 - [facility] [place] [address] [id number] Aircraft Line Assembler: Basilio Oden MD, Phone: [phone] us Jasvir Parrish MD SEND OUTS Final Re sult [facility] (CET) [address] [place] [address], [place] * MAGNESIUM (05/20/2024 1:58 PM MUSHROOM FARMER) Only the most recent of6 resultswithin the time period is included. Pathologist [facility] MAGNESIUM 1.9 1.6 - 2.4 mg/dL 05/20/2024 2:39 PM MUSHROOM FARMER [facility] Blood BLOOD SPECIMEN / Unknown Non-Lab Venipuncture / Unknown 05/20/2024 1:58 PM MUSHROOM FARMER 05/20/2024 2:08 PM MUSHROOM FARMER us Dipak Hendrickson MD CHEMISTRY Final Resu lt Performing Organization Address City/[facility]/ZIP Co de Phone Number [facility] [address] [place] [address], [place] * (ABNORMAL) RENAL FUNCTION PANEL (05/20/2024 1:58 PM MUSHROOM FARMER) Only the most recent of2 resultswithin the time period is included. SODIUM 132(L) 136 - 145 mmol/L 05/20/2024 2:39 PM MUSHROOM FARMER [facility] TRAL LABORATORY POTASSIUM 4.0 3.5 - 5.1 mmol/L 05/20/2024 2:39 PM MUSHROOM FARMER [facility] TRAL LABORATORY CHLORIDE 96(L) 98 - 107 mmol/L 05/20/2024 2:39 PM MUSHROOM FARMER [facility] TRAL LABORATORY CO2,TOTAL 20(L) 22 - 29 mmol/L 05/20/2024 2:39 PM MUSHROOM FARMER [facility] TRAL LABORATORY ANION GAP 16 5 - 18 05/20/2024 2:39 PM MUSHROOM FARMER [facility] TRA LABORATORY GLUCOSE 119(H) 70 - 99 mg/dL 05/20/2024 2:39 PM MUSHROOM FARMER [facility] CALCIUM 8.8 8.8 - 10.4 mg/dL 05/20/2024 2:39 PM [facility] TRAL LABORATORY Comment: Reference ranges for this test were updated on 03/30/2024 to reflect our healthy population more accurately. Reference range changes are not retroactively applied to results, but previous results using the same methodology can be interpreted in the context of the new reference range. BUN 40(H) 8 - 23 mg/dL 05/20/2024 2:39 PM [facility] CREATININE 4.41(H) 0.70 - 1.20 mg/dL 05/20/2024 2:39 PM MUSHROOM FARMER [facility] BUN/CREAT RATIO 9(L) 10 - 20 2:39 PM [facility] eGFR 14(L) >90 mL/min/1. 73m2 05/20/2024 2:39 PM MUSHROOM FARMER [facility] TRA LABORATORY Comment:As of 2021, eG FR is calculated by the CKD-EPI creatinine equation without race adjustment. eGFR can be influenced by muscle mass, exercise, and diet. The reported eGFR is an estimation only and is only applicable if the renal function is stable. PHOSPHORUS 4.0 2.5 - 4.5 mg/dL 05/20/2024 2:39 PM MUSHROOM FARMER [facility] TRA LABORATORY ALBUMIN 3.7(L) 4.0 - 4.9 g/dL 05/20/2024 2:39 PM MUSHROOM FARMER [facility] Blood BLOOD SPECIMEN / Unknown Non-Lab Venipuncture / Unknown 05/20/2024 1:58 PM MUSHROOM FARMER 05/20/2024 2:08 PM MUSHROOM FARMER us Sheyla Aparicio MD CHEMISTRY Final Resu lt [facility] [address] [address], * (ABNORMAL) CBC W PLT NO DIFF (05/20/2024 1:57 PM MUSHROOM FARMER) Only the most recent of6 resultswithin the time period is included. WHITE BLOOD COUNT 11.4(H) 4.5 - 11.0 thou/cu mm 05/20/2024 2:14 PM [facility] TRAL LABORATORY RED BLOOD COUNT 2.71(L) 4.30 - 5.90 mil/cu mm 05/20/2024 2:14 PM [facility] TRAL LABORATORY HEMOGLOBIN 8.7(L) 13.5 - 17.5 g/dL 05/20/2024 2:14 PM [facility] TRAL LABORATORY HEMATOCRIT 26.2(L) 37.0 - 53.0 % 05/20/2024 2:14 PM [facility] TRAL LABORATORY MCV 97 80 - 100 fL 05/20/2024 2:14 PM [facility] TRAL LABORATORY MCH 32.1 26.0 - 34.0 pg 05/20/2024 2:14 PM [facility] TRAL LABORATORY MCHC 33.2 32.0 - 36.0 g/dL 05/20/2024 2:14 PM [facility] TRAL LABORATORY RDW 12.5 11.5 - 15.5 % 05/20/2024 2:14 PM [facility] PLATELET COUNT 279 140 - 440 thou/cu mm 05/20/2024 2:14 PM [facility] TRAL LABORATORY MPV 11.8(H) 6.5 - 11.0 fL 05/20/2024 2:14 PM [facility] NRBC 0.0 % 05/20/2024 2:14 PM [facility] TRAL LABORATORY ABS NRBC 0.0 thou /cu mm 05/20/2024 2:14 PM [facility] TRAL LABORATORY Blood BLOOD SPECIMEN / Unknown Non-Lab Venipuncture / Unknown 05/20/2024 1:57 PM MUSHROOM FARMER 05/20/2024 2:08 PM MUSHROOM FARMER Dipak Hendrickson MD HEMATOLOGY Final Resu lt Performing Organization Address City/[facility]/ZIP Co de Phone Number [facility] [address] [place] [phone], [place] * (ABNORMAL) PHOSPHORUS (05/19/2024 3:27 PM MUSHROOM FARMER) Only the most recent of5 resultswithin the time period is included. PHOSPHORUS 2.1(L) 2.5 - 4.5 mg/dL 05/19/2024 4:13 PM MUSHROOM FARMER [facility] Blood BLOOD SPECIMEN / Unknown Butterfly / Unknown 05/19/2024 3:27 PM MUSHROOM FARMER 05/19/2024 3:32 PM MUSHROOM FARMER Dipak Hendrickson MD CHEMISTRY Final Resu lt Performing Organization Address [facility] Co de Phone Number [facility] [address] [phone], [place] * (ABNORMAL) GLUCOSE METER (05/18/2024 11:30 PM MUSHROOM FARMER) Only the most recent of8 resultswithin the time period is included. GLUCOSE METER 105(H) 65 - 100 mg/dL 05/18/2024 11:32 PM MUSHROOM FARMER [facility] Blood BLOOD SPECIMEN / Unknown 05/18/2024 11:30 PM MUSHROOM FARMER 05/18/2024 11:32 PM MUSHROOM FARMER us Doctor Unknown CHEMISTRY Final Result Performing Organization Address City/[facility] Co de Phone Number [facility] [address] [place] [address], [place] * HCV RT-PCR, QUANT (NON-GRAPH) [facility] (05/18/2024 10:30 AM MUSHROOM FARMER) Only the most recent of2 resultswithin the time period is included. Hep C Qn HCV Not Detected IU/mL 05/22/2024 2:06 PM MUSHROOM FARMER [facility] (CET) HCV Test Info Comment 05/22/2024 2:06 PM [address]OOM [address] [facility] ([facility]) Comment:The quantitative ran ge of this assay is 15 IU/mL to 100 million IU/mL. Blood BLOOD SPECIMEN / Unknown Venipuncture / Unknown 05/18/2024 10:30 AM MUSHROOM FARMER 05/18/2024 10:35 AM MUSHROOM FARMER Narrative [facility] ([facility]) - 05/22/2024 2:06 PM MUSHROOM FARMER Performed at: 01 - [email or web address] [address] [id number] Aircraft Line Assembler: Basilio Oden MD, Phone: [phone] Osmani Ceron MD LABORATORY Final Resul t [facility] ([facility]) [address] [place] [address], [place] * SCAN CORRESP-EKG RESULTS (05/18/2024 10:24 AM MUSHROOM FARMER) Only the most recent of3 resultswithin the time period is included. Narrative 05/18/2024 10:24 AM MUSHROOM FARMER Ordered by an unspecified provider. us Other Clinical Staff OTHER Final Resul t * SCAN CORRESP-IMAGING (05/18/2024 10:24 AM MUSHROOM FARMER) Only the most recent of3 resultswithin the time period is included. Anatomical Region Laterality Modality Other Narrative 05/18/2024 10:24 AM MUSHROOM FARMER Ordered by an unspecified provider. us Other Clinical Staff OTHER Final Resul t * (ABNORMAL) BLOOD GAS,VENOUS (05/18/2024 4:58 AM MUSHROOM FARMER) Only the most recent of5 resultswithin the time period is included. PH, VENOUS 7.41 7.32 - 7.43 05/18/2024 5:34 AM MUSHROOM FARMER [facility] TRAL LABORATORY PCO2, VENOUS 39(L) 41 - 51 mmHg 05/18/2024 5:34 AM MUSHROOM FARMER [facility] TRAL LABORATORY PO2, VENOUS 43(H) 35 - 40 mmHg 05/18/2024 5:34 AM MUSHROOM FARMER [facility] TRA LABORATORY HCO3,VENOUS 25 22 - 29 mmol/L 05/18/2024 5:34 AM MUSHROOM FARMER [facility] BASE EXCESS, VENOUS, POCT 0.1 -2.0 - 3.0 05/18/2024 5:34 AM MUSHROOM FARMER [facility] O2 SATURATION, VENOUS 76(H) 70 - 75 % 05/18/2024 5:34 AM MUSHROOM FARMER [facility] TRAL LABORATORY PATIENT TEMPERATURE 37.0 Degrees C 05/18/2024 5:34 AM MUSHROOM FARMER [facility] Blood VENOUS BLOOD SPECIMEN / Unknown Venipuncture / Unknown 05/18/2024 4:58 AM MUSHROOM FARMER 05/18/2024 5:30 AM MUSHROOM FARMER Dipak Hendrickson MD CHEMISTRY Final Resu lt [facility] [address] [address], * SCAN-CARDIAC STRIP (05/17/2024 10:36 PM MUSHROOM FARMER) us Scanner OTHER Final Result * (ABNORMAL) CBC WITH AUTO DIFFERENTIAL (05/17/2024 4:42 PM MUSHROOM FARMER) Only the most recent of2 resultswithin the time period is included. WHITE BLOOD COUNT 8.6 4.5 - 11.0 thou/cu mm 05/17/2024 4:58 PM MUSHROOM FARMER [facility] TRAL LABORATORY RED BLOOD COUNT 2.49(L) 4.30 - 5.90 mil/cu mm 05/17/2024 4:58 PM MUSHROOM FARMER [facility] HEMOGLOBIN 8.1(L) 13.5 - 17.5 g/dL 05/17/2024 4:58 PM MUSHROOM FARMER [facility] HEMATOCRIT 25.0(L) 37.0 - 53.0 % 05/17/2024 4:58 PM [facility] TRAL LABORATORY MCV 100 80 - 100 fL 05/17/2024 4:58 PM [facility] TRAL LABORATORY MCH 32.5 26.0 - 34.0 pg 05/17/2024 4:58 PM [facility] TRAL LABORATORY MCHC 32.4 32.0 - 36.0 g/dL 05/17/2024 4:58 PM [facility] TRAL LABORATORY RDW 12.8 11.5 - 15.5 % 05/17/2024 4:58 PM [facility] TRAL LABORATORY PLATELET COUNT 306 140 - 440 thou/cu mm 05/17/2024 4:58 PM [facility] TRAL LABORATORY MPV 11.3(H) 6.5 - 11.0 fL 05/17/2024 4:58 PM [facility] TRAL LABORATORY NRBC 0.0 % 05/17/2024 4:58 PM [facility] TRAL LABORATORY ABS NRBC 0.0 thou /cu mm 05/17/2024 4:58 PM [facility] TRAL LABORATORY % NEUT 84.4 % 05/17/2024 4:58 PM [facility] TRAL LABORATORY % LYMPH 13.1 % 05/17/2024 4:58 PM [facility] TRAL LABORATORY % MONO 1.5 % 05/17/2024 4:58 PM [facility] TRAL LABORATORY % EOS 0.0 % 05/17/2024 4:58 PM [facility] TRAL LABORATORY % BASO 0.2 % 05/17/2024 4:58 PM [facility] TRAL LABORATORY % IMMATURE GRAN (METAS,MYELOS,MN OS) 0.8 % 05/17/2024 4:58 PM [facility] TRAL LABORATORY ABSOLUTE NEUTROPHILS 7.3(H) 1.7 - 7.0 thou/cu mm 05/17/2024 4:58 PM [facility] TRAL LABORATORY ABSOLUTE LYMPHOCYTES 1.1 0.9 - 2.9 thou/cu mm 05/17/2024 4:58 PM [facility] TRAL LABORATORY ABSOLUTE MONOCYTES 0.1 <0.9 thou/cu mm 05/17/2024 4:58 PM MUSHROOM FARMER [facility] TRAL LABORATORY ABSOLUTE EOSINOPHILS 0.0 <0.5 thou/cu mm 05/17/2024 4:58 PM MUSHROOM FARMER [facility] TRAL LABORATORY ABSOLUTE BASOPHILS 0.0 <0.3 thou/cu mm 05/17/2024 4:58 PM MUSHROOM FARMER [facility] TRAL LABORATORY ABSOLUTE IMMATURE GRANULOCYTES(MET ,MYELOS,PROS) 0.1 <0.3 thou/cu mm 05/17/2024 4:58 PM MUSHROOM FARMER [facility] Blood BLOOD SPECIMEN / Unknown Line/Port / Unknown 05/17/2024 4:42 PM MUSHROOM FARMER 05/17/2024 4:49 PM MUSHROOM FARMER Jaden Aguilar [facility] Final Result Performing Organization Address City/[facility]/ZIP Co de Phone Number [facility] [address] [address], [place] * LACTATE VENOUS (05/17/2024 4:03 PM MUSHROOM FARMER) Only the most recent of3 resultswithin the time period is included. LACTATE,VENOUS 0.8 0.5 - 2.0 mmol/L 05/17/2024 4:40 PM MUSHROOM FARMER [facility] Blood BLOOD SPECIMEN / Unknown Venipuncture / Unknown 05/17/2024 4:03 PM MUSHROOM FARMER 05/17/2024 4:11 PM MUSHROOM FARMER Jaden Aguilar [facility] CHEMISTR[facility] Final Result [facility] [address] [address], [place] * (ABNORMAL) PROCALCITONIN (05/17/2024 4:03 PM MUSHROOM FARMER) PROCALCITONIN 6.23(H) ng/ml 05/17/2024 5:00 PM MUSHROOM FARMER [facility] Blood BLOOD SPECIMEN / Unknown Venipuncture / Unknown 05/17/2024 4:03 PM MUSHROOM FARMER 05/17/2024 4:11 PM MUSHROOM FARMER Narrative [facility] LAB[facility] - 05/17/2024 5:00 PM MUSHROOM FARMER Procalcitonin for initial assessment of Lower Respiratory Tract Infection: Results Interpretation <0.10 ng/mL Antibiotic therapy strongly discoraged. Indicates absent of bacterial infection. * 0.10 - 0.25 ng/mL Antibiotic therapy discouraged. Bacterial infection unlikely. * 0.26 - 0.50 ng/mL Antibiotic therapy encouraged. Bacterial infection possible. >0.50 ng/mL Antibiotic therapy strongly encouraged. Suggestive of presence of bacterial infection. *Antibiotic therapy should be considered regardless of PCT result if the patient is clinically unstable, is at high risk for adverse outcome, has strong evidence of bacterial pathogen, or the clinical context indicates antibiotic therapy is warranted. If antibiotics are withheld, reassess if symptoms persist/worsen and/or repeat PCT measurement within 6-24 hours. In order to assess treatment success and to support a decision to discontinue antibiotic therapy, follow up samples should be tested once every 1-2 days, based upon physician discretion taking into account patient's evolution and progress. Procalcitonin for initial assessment of severe sepsis risk: Results Interpretation <0.5 ng/ml A PCT level below 0.5 ng/ml on the first day of ICU admission is associated with a low risk for progression to severe sepsis and/or septic shock. > 2.0 ng/mL A PCT level above 2.0 ng/mL on the first day of ICU admission is associated with a high risk for progression to severe sepsis and/or septic shock. Note: Concentrations < 0.5 ng/mL do not exclude an infection, on account of localized infections (without systemic signs) which can be associated with such low concentrations, or a systemic infection in its initial stages(< 6 hours). Furthermore, increased procalcitonin can occur without infection. PCT concentrations between 0.5 and 2.0 ng/mL should be interpreted taking into account the patient's history. It is recommended to retest PCT within 6-24 hours if any concentrations < 2 ng/mL are obtained. us Jaden SANDOVAL SEND OUTS Final Result [facility] [address] [address], [place] * (ABNORMAL) IRON PLUS IRON BINDING CAP (05/17/2024 4:03 PM MUSHROOM FARMER) Only the most recent of2 resultswithin the time period is included. IRON 40(L) 61 - 157 ug/dL 05/17/2024 4:54 PM MUSHROOM FARMER [facility] LABORATORY UIBC (UNSATURATED) 237 112 - 347 ug/dL 05/17/2024 4:54 PM MUSHROOM FARMER [facility] IRON BINDING CAPACITY 277 250 - 400 ug/dL 05/17/2024 4:54 PM MUSHROOM FARMER [facility] IRON,% SATURATION 14 14 - 50 % 05/17/2024 4:54 PM MUSHROOM FARMER [facility] Blood BLOOD SPECIMEN / Unknown Venipuncture / Unknown 05/17/2024 4:03 PM MUSHROOM FARMER 05/17/2024 4:11 PM MUSHROOM FARMER Dipak Hendrickson MD CHEMISTRY Final Resu lt [facility] [address] [place] [id number], [place] * (ABNORMAL) PRO-BNP (05/17/2024 4:03 PM MUSHROOM FARMER) Only the most recent of2 resultswithin the time period is included. PRO-BNP 36,616(H) <125 pg/mL 05/17/2024 6:13 PM MUSHROOM FARMER [facility] Blood BLOOD SPECIMEN / Unknown Venipuncture / Unknown 05/17/2024 4:03 PM MUSHROOM FARMER 05/17/2024 4:11 PM MUSHROOM FARMER Narrative [facility] - 05/17/2024 6:13 PM MUSHROOM FARMER The following cut-points have been suggested for the use of proBNP for the diagnostic evaluation of heart failure (HF) in patient with acute dyspnea. Patients with eGFR >= 60 Diagnosis (rule in CHF) <50 Years Old 450 pg/mL 50 - 75 Years Old 900 pg/mL >75 Years Old 1800 pg/mL Exclusion (rule out CHF) Age Independent 300 pg/mL A cutoff of 1200 pg/mL for patients with an eGFR <60 yields a diagnostic sensitivity of 89% and specificity of 72% for acute congestive heart failure. Dipak Hendrickson MD SEND OUTS Final Resu lt Performing Organization Address City/[facility] Co de Phone Number [facility] [address] [place] [address], [place] * FERRITIN (05/17/2024 4:03 PM MUSHROOM FARMER) Only the most recent of2 resultswithin the time period is included. FERRITIN 181.0 30.0 - 400.0 ng/mL 05/17/2024 4:54 PM MUSHROOM FARMER [facility] [employer] [facility] Blood BLOOD SPECIMEN / Unknown Venipuncture / Unknown 05/17/2024 4:03 PM MUSHROOM FARMER 05/17/2024 4:11 PM MUSHROOM FARMER Dipak Hendrickson MD CHEMISTRY Final Resu lt Performing Organization Address [facility] Co de Phone Number [facility] [employer] [facility] [address] [place] [address], [place] * (ABNORMAL) Hepatic Function Panel (05/17/2024 4:03 PM MUSHROOM FARMER) ALBUMIN 3.8(L) 4.0 - 4.9 g/dL 05/17/2024 4:54 PM [facility] PROTEIN,TOTAL 6.6 6.0 - 8.0 g/dL 05/17/2024 4:54 PM MUSHROOM FARMER [facility] [employer] [facility] BILIRUBIN,TOTAL 0.2 0.0 - 1.2 mg/dL 05/17/2024 4:54 PM MUSHROOM FARMER [facility] LABORATORY BILIRUBIN,DIRECT 0.1 0.0 - 0.2 mg/dL 05/17/2024 4:54 PM MUSHROOM FARMER [facility] LAB[facility] ALK PHOSPHATASE 145(H) 40 - 129 IU/L 05/17/2024 4:54 PM MUSHROOM FARMER [facility] ALT (SGPT) 10 10 - 50 IU/L 05/17/2024 4:54 PM MUSHROOM FARMER [facility] LAB[facility] AST (SGOT) 19 10 - 50 IU/L 05/17/2024 4:54 PM MUSHROOM FARMER [facility] Blood BLOOD SPECIMEN / Unknown Venipuncture / Unknown 05/17/2024 4:03 PM MUSHROOM FARMER 05/17/2024 4:11 PM MUSHROOM FARMER us [employer] [facility] CHEMISTRY Final Result [facility] [address] [place] [id number], [place] * CT CHEST W (05/11/2024 1:15 PM MUSHROOM FARMER) Anatomical Region Laterality Modality CHEST, THORAX, HEART Computed To mography 05/11/2024 1:15 PM MUSHROOM FARMER Impressions 05/11/2024 1:47 PM MUSHROOM FARMER 1. Large masslike area of consolidation within the right lower lobe which is concerning for malignancy although pneumonia could have a similar appearance. If concern for pneumonia, recommend appropriate interval follow-up chest x-ray in 4-6 weeks to assure complete resolution. Otherwise recommend further workup for malignancy. Narrative 05/11/2024 1:47 PM MUSHROOM FARMER For Patients: As a result of the Century Cures Act, medical imaging exams and procedure reports are released immediately into your electronic medical record. You may view this report before your referring provider. If you have questions, please contact your health care provider. EXAM: CT CHEST W LOCATION: [facility] DATE: 05/11/2024 INDICATION: Lung mass right lower lung 6.4 cm, evaluate for malignancy vs infection COMPARISON: None. TECHNIQUE: CT chest with IV contrast. Multiplanar reformats were obtained. Dose reduction techniques were used. CONTRAST: Omnipaque 350 60ml FINDINGS: LUNGS AND PLEURA: Masslike area of consolidation is noted within the right lower lobe measuring 6.5 x 5.1 x 6.7 cm. Small fibrotic changes are noted along the periphery of both lungs. Small areas of atelectasis noted at the lung bases. Mild bronchial wall thickening at the lung bases. No effusion. MEDIASTINUM/AXILLAE: Heart is normal in size. Mildly enlarged precarinal lymph node measuring 1.3 cm. Additional subcentimeter mediastinal lymph nodes are noted. Few mildly prominent right hilar lymph nodes are noted measuring up to 8 mm. No left hilar or axillary lymph nodes. CORONARY ARTERY CALCIFICATION: Severe. UPPER ABDOMEN: 2.2 x 2.2 cm left adrenal nodule which is indeterminant although probably represents an adenoma. MUSCULOSKELETAL: Degenerative changes of the spine. Procedure Note Preet Howard MD - 05/11/2024 For Patients: As a result of the Cures Act, medical imagingexams and procedure reports are released immediately into your electronicmedical record. You may view this report before your referring provider.If you have questions, please contact your health care provider. EXAM: CT CHEST W LOCATION: [facility] MED[facility] DATE: 05/11/2024 INDICATION: Lung mass right lower lung 6.4 cm, evaluate for malignancy vsinfection COMPARISON: None. TECHNIQUE: CT chest with IV contrast. Multiplanar reformats were obtained.Dose reduction techniques were used. CONTRAST: Omnipaque 350 60ml FINDINGS: LUNGS AND PLEURA: Masslike area of consolidation is noted within the rightlower lobe measuring 6.5 x 5.1 x 6.7 cm. Small fibrotic changes are notedalong the periphery of both lungs. Small areas of atelectasis noted at thelung bases. Mild bronchial wall thickening at the lung bases. Noeffusion. MEDIASTINUM/AXILLAE: Heart is normal in size. Mildly enlarged precarinallymph node measuring 1.3 cm. Additional subcentimeter mediastinal lymphnodes are noted. Few mildly prominent right hilar lymph nodes are notedmeasuring up to 8 mm. No left hilar or axillary lymph nodes. CORONARY ARTERY CALCIFICATION: Severe. UPPER ABDOMEN: 2.2 x 2.2 cm left adrenal nodule which is indeterminantalthough probably represents an adenoma. MUSCULOSKELETAL: Degenerative changes of the spine. IMPRESSION: 1. Large masslike area of consolidation within the right lower lobe whichis concerning for malignancy although pneumonia could have a similarappearance. If concern for pneumonia, recommend appropriate intervalfollow-up chest x-ray in 4- 6 weeks to assure complete resolution.Otherwise recommend further workup for malignancy. us Yazmin Briggs MD CT Final Result * QFT MITOGEN PERFORMABLE (05/11/2024 10:50 AM MUSHROOM FARMER) MITOGEN 10.00 IU/mL 05/12/2024 9:47 AM MUSHROOM FARMER [facility] Blood BLOOD SPECIMEN / Unknown Venipuncture / Unknown 05/11/2024 10:50 AM MUSHROOM FARMER 05/11/2024 10:53 AM MUSHROOM FARMER us Yazmin Briggs MD CHEMISTRY Final Result Performing Organization Address City/[facility] Co de Phone Number [facility] [address] [place] [address], [place] * QFT TB2 PERFORMABLE (05/11/2024 10:50 AM MUSHROOM FARMER) TB2 0.04 IU/mL 05/12/2024 9:47 AM MUSHROOM FARMER [facility] Blood BLOOD SPECIMEN / Unknown Venipuncture / Unknown 05/11/2024 10:50 AM MUSHROOM FARMER 05/11/2024 10:53 AM MUSHROOM FARMER us Yazmin Briggs MD CHEMISTRY Final Result [facility] [address] [place] [id number], [place] * QFT TB1 PERFORMABLE (05/11/2024 10:50 AM MUSHROOM FARMER) TB1 0.04 IU/mL 05/12/2024 9:47 AM MUSHROOM FARMER [facility] Blood BLOOD SPECIMEN / Unknown Venipuncture / Unknown 05/11/2024 10:50 AM MUSHROOM FARMER 05/11/2024 10:53 AM MUSHROOM FARMER us Yazmin Briggs MD CHEMISTRY Final Result [facility] [address] [place] [address], [place] * QUANTIFERON TB GOLD PLUS (05/11/2024 10:50 AM MUSHROOM FARMER) QFTP NIL 0.04 05/12/2024 10:09 AM MUSHROOM FARMER [facility] TB1 0.04 IU/mL 05/12/2024 10:09 AM MUSHROOM FARMER [facility] TB2 0.04 IU/mL 05/12/2024 10:09 AM [facility] MITOGEN 10.00 IU/mL 05/12/2024 10:09 AM [facility] QFTP TB AG1 - NIL 0.00 024 10:09 AM MUSHROOM FARMER [facility] TB1-NIL % OF NIL 0 % 05/12/20 24 10:09 AM MUSHROOM FARMER [facility] QFTP TB AG2 - NIL 0.00 024 10:09 AM MUSHROOM FARMER [facility] TB2-NIL % OF NIL 0 % 05/12/20 24 10:09 AM [facility] QFTP MITOGEN - NIL 9.96 2023 10:09 AM [facility] QFTP QUANTIFERON INTERPRETATION Negative Negative 05/12/2024 10:09 AM [facility] Blood BLOOD SPECIMEN / Unknown Venipuncture / Unknown 05/11/2024 10:50 AM MUSHROOM FARMER 05/11/2024 10:53 AM MUSHROOM FARMER Narrative [facility] - 05/12/2024 10:09 AM MUSHROOM FARMER M. tuberculosis infection not likely, but cannot be excluded in cases of immunosuppression. CAUTION: The performance of QuantiFERON-TB Gold Plus has not been evaluated in specimens from: - Individuals with impaired or altered immune factors (HIV infections, transplant patients, those receieving immunosuppressive drugs such as corticosteroids) and those with other clinical conditions (e.g., diabetes, hematological disorders). - Individuals younger than 17 years old. Refer to CDC website for testing recommendations in children 6-17 years old. - women us Yazmin Briggs MD CHEMISTRY Final Result [facility] [address] [place] [address], [place] * SCAN-CARDIAC STRIP (05/10/2024 11:50 PM MUSHROOM FARMER) us Scanner OTHER Final Result * SCAN-CARDIAC STRIP (05/10/2024 11:50 PM MUSHROOM FARMER) us Scanner OTHER Final Result * SCAN-CARDIAC STRIP (05/10/2024 11:50 PM MUSHROOM FARMER) us Scanner OTHER Final Result * SCAN-CARDIAC STRIP (05/10/2024 11:50 PM MUSHROOM FARMER) us Scanner OTHER Final Result * SCAN-CARDIAC STRIP (05/10/2024 5:10 PM MUSHROOM FARMER) us Scanner OTHER Final Result * SCAN-CARDIAC STRIP (05/10/2024 5:10 PM MUSHROOM FARMER) us Scanner OTHER Final Result * SCAN-CARDIAC STRIP (05/10/2024 5:10 PM MUSHROOM FARMER) us Scanner OTHER Final Result * SCAN-CARDIAC STRIP (05/10/2024 5:10 PM MUSHROOM FARMER) us Scanner OTHER Final Result * SCAN-CARDIAC STRIP (05/10/2024 9:13 AM MUSHROOM FARMER) us Scanner OTHER Final Result * SCAN-CARDIAC STRIP (05/10/2024 9:13 AM MUSHROOM FARMER) us Scanner OTHER Final Result * SCAN-CARDIAC STRIP (05/10/2024 9:13 AM MUSHROOM FARMER) us Scanner OTHER Final Result * SCAN-CARDIAC STRIP (05/10/2024 9:13 AM MUSHROOM FARMER) us Scanner OTHER Final Result * SCAN-CARDIAC STRIP (05/10/2024 12:07 AM MUSHROOM FARMER) us Scanner OTHER Final Result * SCAN-CARDIAC STRIP (05/10/2024 12:07 AM MUSHROOM FARMER) us Scanner OTHER Final Result * SCAN-CARDIAC STRIP (05/10/2024 12:07 AM MUSHROOM FARMER) us Scanner OTHER Final Result * SCAN-CARDIAC STRIP (05/10/2024 12:07 AM MUSHROOM FARMER) us Scanner OTHER Final Result * SCAN-CARDIAC STRIP (05/09/2024 9:14 PM MUSHROOM FARMER) us Scanner OTHER Final Result * SCAN-CARDIAC STRIP (05/09/2024 9:14 PM MUSHROOM FARMER) us Scanner OTHER Final Result * SCAN-CARDIAC STRIP (05/09/2024 9:14 PM MUSHROOM FARMER) us Scanner OTHER Final Result * SCAN-CARDIAC STRIP (05/09/2024 9:14 PM MUSHROOM FARMER) us Scanner OTHER Final Result * SCAN-CARDIAC STRIP (05/09/2024 4:19 PM MUSHROOM FARMER) us Scanner OTHER Final Result * SCAN-CARDIAC STRIP (05/09/2024 4:19 PM MUSHROOM FARMER) us Scanner OTHER Final Result * SCAN-CARDIAC STRIP (05/09/2024 4:19 PM MUSHROOM FARMER) us Scanner OTHER Final Result * SCAN-CARDIAC STRIP (05/09/2024 4:19 PM MUSHROOM FARMER) us Scanner OTHER Final Result * SCAN-CARDIAC STRIP (05/09/2024 7:15 AM MUSHROOM FARMER) us Scanner OTHER Final Result * SCAN-CARDIAC STRIP (05/09/2024 7:15 AM MUSHROOM FARMER) us Scanner OTHER Final Result * SCAN-CARDIAC STRIP (05/09/2024 7:15 AM MUSHROOM FARMER) us Scanner OTHER Final Result * SCAN-CARDIAC STRIP (05/09/2024 7:15 AM MUSHROOM FARMER) us Scanner OTHER Final Result * SCAN-CARDIAC STRIP (05/09/2024 12:48 AM MUSHROOM FARMER) us Scanner OTHER Final Result * SCAN-CARDIAC STRIP (05/09/2024 12:48 AM MUSHROOM FARMER) us Scanner OTHER Final Result * SCAN-CARDIAC STRIP (05/09/2024 12:48 AM MUSHROOM FARMER) us Scanner OTHER Final Result * SCAN-CARDIAC STRIP (05/09/2024 12:48 AM MUSHROOM FARMER) us Scanner OTHER Final Result * SCAN-CARDIAC STRIP (05/08/2024 7:43 PM MUSHROOM FARMER) us Scanner OTHER Final Result * SCAN-CARDIAC STRIP (05/08/2024 7:43 PM MUSHROOM FARMER) us Scanner OTHER Final Result * SCAN-CARDIAC STRIP (05/08/2024 7:43 PM MUSHROOM FARMER) us Scanner OTHER Final Result * SCAN-CARDIAC STRIP (05/08/2024 7:43 PM MUSHROOM FARMER) us Scanner OTHER Final Result * SCAN-CARDIAC STRIP (05/08/2024 3:43 PM MUSHROOM FARMER) us Scanner OTHER Final Result * SCAN-CARDIAC STRIP (05/08/2024 3:43 PM MUSHROOM FARMER) us Scanner OTHER Final Result * SCAN-CARDIAC STRIP (05/08/2024 3:43 PM MUSHROOM FARMER) us Scanner OTHER Final Result * SCAN-CARDIAC STRIP (05/08/2024 3:43 PM MUSHROOM FARMER) us Scanner OTHER Final Result * SCAN-CARDIAC STRIP (05/08/2024 7:19 AM MUSHROOM FARMER) us Scanner OTHER Final Result * SCAN-CARDIAC STRIP (05/08/2024 7:19 AM MUSHROOM FARMER) us Scanner OTHER Final Result * SCAN-CARDIAC STRIP (05/08/2024 7:19 AM MUSHROOM FARMER) us Scanner OTHER Final Result * SCAN-CARDIAC STRIP (05/08/2024 7:19 AM MUSHROOM FARMER) us Scanner OTHER Final Result * SCAN-CARDIAC STRIP (05/08/2024 1:00 AM MUSHROOM FARMER) us Scanner OTHER Final Result * SCAN-CARDIAC STRIP (05/08/2024 1:00 AM MUSHROOM FARMER) us Scanner OTHER Final Result * SCAN-CARDIAC STRIP (05/08/2024 1:00 AM MUSHROOM FARMER) us Scanner OTHER Final Result * SCAN-CARDIAC STRIP (05/08/2024 1:00 AM MUSHROOM FARMER) us Scanner OTHER Final Result * SCAN-CARDIAC STRIP (05/07/2024 9:08 PM MUSHROOM FARMER) us Scanner OTHER Final Result * SCAN-CARDIAC STRIP (05/07/2024 9:08 PM MUSHROOM FARMER) us Scanner OTHER Final Result * SCAN-CARDIAC STRIP (05/07/2024 9:08 PM MUSHROOM FARMER) us Scanner OTHER Final Result * SCAN-CARDIAC STRIP (05/07/2024 9:08 PM MUSHROOM FARMER) us Scanner OTHER Final Result * SCAN-CARDIAC STRIP (05/07/2024 5:03 PM MUSHROOM FARMER) us Scanner OTHER Final Result * SCAN-CARDIAC STRIP (05/07/2024 5:03 PM MUSHROOM FARMER) us Scanner OTHER Final Result * SCAN-CARDIAC STRIP (05/07/2024 5:03 PM MUSHROOM FARMER) us Scanner OTHER Final Result * SCAN-CARDIAC STRIP (05/07/2024 5:03 PM MUSHROOM FARMER) us Scanner OTHER Final Result * XR CHEST 1 VIEW PORTABLE (05/07/2024 4:49 PM MUSHROOM FARMER) Anatomical Region Laterality Modality HEART, THORAX, CHEST Computed Ra diography 05/07/2024 4:49 PM MUSHROOM FARMER Impressions 05/07/2024 5:09 PM MUSHROOM FARMER Again noted is medial right lower lung consolidation or mass measuring 6.4 cm. This is indeterminate in nature. Strictly speaking, active primary Mycobacterium tuberculosis is not yet excluded. Malignancy is in the differential until excluded. Further evaluation with chest CT with IV contrast is recommended. No pleural effusions or pneumothorax. Unchanged cardiac size. Right internal jugular vascular catheter tip projects at the cavoatrial junction. Old right rib fractures. Suggested follow-up: Chest CT CT Chest < 1 Month Narrative 05/07/2024 5:09 PM MUSHROOM FARMER For Patients: As a result of the Cures Act, medical imaging exams and procedure reports are released immediately into your electronic medical record. You may view this report before your referring provider. If you have questions, please contact your health care provider. EXAM: XR CHEST 1 VIEW PORTABLE LOCATION: [facility] MEDICAL [facility]AG[facility] DATE: 05/07/2024 INDICATION: Lung infiltrate COMPARISON: 04/26/2024 Procedure Note So, Tadeo Blanco MD - 05/07/2024 For Patients: As a result of the Cures Act, medical imagingexams and procedure reports are released immediately into your electronicmedical record. You may view this report before your referring provider.If you have questions, please contact your health care provider. EXAM: XR CHEST 1 VIEW PORTABLE LOCATION: [facility] MED[facility] DATE: 05/07/2024 INDICATION: Lung infiltrate COMPARISON: 04/26/2024 IMPRESSION: Again noted is medial right lower lung consolidation or mass measuring 6.4cm. This is indeterminate in nature. Strictly speaking, active primaryMycobacterium tuberculosis is not yet excluded. Malignancy is in thedifferential until excluded. Further evaluation with chest CT with IVcontrast is recommended. No pleural effusions or pneumothorax. Unchanged cardiac size. Rightinternal jugular vascular catheter tip projects at the cavoatrialjunction. Old right rib fractures. Suggested follow-up: Chest CT CT Chest < 1 Month us Arun Martinez MD GENERAL IMAGING Final Res ult * SCAN-CARDIAC STRIP (05/07/2024 12:39 PM MUSHROOM FARMER) us Scanner OTHER Final Result * SCAN-CARDIAC STRIP (05/07/2024 12:39 PM MUSHROOM FARMER) us Scanner OTHER Final Result * SCAN-CARDIAC STRIP (05/07/2024 12:39 PM MUSHROOM FARMER) us Scanner OTHER Final Result * SCAN-CARDIAC STRIP (05/07/2024 12:39 PM MUSHROOM FARMER) us Scanner OTHER Final Result * ECHO TTE LIMITED WO CONTRAST W COLOR W LTD DOPPLER (05/07/2024 11:27 AM MUSHROOM FARMER) EJECTION FRACTION 50% PROSOLV Anatomical Region Laterality Modality Ultrasound 05/07/2024 12:0 2 PM MUSHROOM FARMER Narrative 05/07/2024 12:52 PM [place] [address] Main: [email or web address] [facility]sthoracic Echo Report HENRIQUEBARON Bjorn ID: [id number] Age: 63 : 1960 Ordering Provider: ARUN MARTINEZ Exam Date: 05/07/2024 12:02 Gender: M Blueprint Blocker: [facility] Height: 68 in BSA: 1.61 m BP: 145 / 94 Weight: 114 lbs BMI: 17.3 kg/m HR: 71 Location: Inpatient (Portable) Rhythm: Normal Sinus Rhythm Procedure Components: Limited 2D imaging, Color Doppler, Spectral Doppler Indications: cad Technical Quality: Very technically difficult study Contrast: None Final Conclusion Previous Study: 04/26/24 LIMITED ECHOCARDIOGRAM FOR ASSESSMENT OF LVEF. 1. Technically challenging echocardiogram. 2. Normal left ventricular chamber size. Normal left ventricular wall thickness. Mild global reduction in systolic function. Estimated left ventricular ejection fraction is 50%. 3. Normal right ventricular chamber size. Normal right ventricular systolic function. 4. When compared to the previous echocardiographic images of 04/26/24, there has been no significant change. Estimated EF: 50% FINDINGS Left Ventricle Normal left ventricular chamber size. Normal left ventricular wall thickness. Mild global reduction in systolic function. Estimated left ventricular ejection fraction is 50%. Diastolic Function Left ventricular diastolic function was not assessed. Right Ventricle Normal right ventricular chamber size. Normal right ventricular systolic function. Left Atrium Left atrium was not assessed. Right Atrium Right atrium was not assessed. Atrial Septum Atrial septum was not assessed. Aortic Valve Aortic valve was not assessed. Mitral Valve Mitral valve was not assessed. Tricuspid Valve Tricuspid valve was not assessed. Pulmonic Valve Pulmonary valve was not assessed. Pericardium No pericardial effusion. Aorta Aortic sinus of Valsalva was not assessed. Ascending aorta was not assessed. Inferior Vena Cava Inferior vena cava was not assessed. MEASUREMENTS (Male / Female) Normal Values 2D MEASUREMENTS AND LV FUNCTION LV Ejection Fraction MOD BP 41.1 % >= 55 % Alirio Reyes MD [facility] Accredited Site (Electronically Signed) Final Date: 07 May 2024 12:52 ICD-10 Codes: Procedure Note Alirio Reyes MD - 05/07/2024 [place] [address] Main: [email or web address] Transthoracic Echo Report BARON DUENAS Bjorn ID: [id number] Age: 63 : 1960 Ordering Provider:ARUN MARTINEZ Exam Date: 05/07/2024 12:02 Gender: M Blueprint Blocker: [facility] Height: 68 in BSA: 1.61 m BP: 145 / 94 Weight: 114 lbs BMI: 17.3 kg/m HR: 71 Location: Inpatient (Portable) Rhythm: Normal Sinus Rhythm Procedure Components: Limited 2D imaging, Color Doppler, SpectralDoppler Indications: cad Technical Quality: Very technically difficult study Contrast: None Final Conclusion Previous Study: 04/26/24 LIMITED ECHOCARDIOGRAM FOR ASSESSMENT OF LVEF. 1. Technically challenging echocardiogram. 2. Normal left ventricular chamber size. Normal left ventricular wallthickness. Mild global reduction in systolic function. Estimated left ventricular ejection fraction is 50%. 3. Normal right ventricular chamber size. Normal right ventricularsystolic function. 4. When compared to the previous echocardiographic images of 04/26/24,there has been no significant change. Estimated EF: 50% FINDINGS Left Ventricle Normal left ventricular chamber size. Normal leftventricular wall thickness. Mild global reduction in systolic function. Estimated left ventricular ejection fraction is 50%. Diastolic Function Left ventricular diastolic function was notassessed. Right Ventricle Normal right ventricular chamber size. Normal rightventricular systolic function. Left Atrium Left atrium was not assessed. Right Atrium Right atrium was not assessed. Atrial Septum Atrial septum was not assessed. Aortic Valve Aortic valve was not assessed. Mitral Valve Mitral valve was not assessed. Tricuspid Valve Tricuspid valve was not assessed. Pulmonic Valve Pulmonary valve was not assessed. Pericardium No pericardial effusion. Aorta Aortic sinus of Valsalva was not assessed. Ascending aorta was notassessed. Inferior Vena Cava Inferior vena cava was not assessed. MEASUREMENTS (Male / Female) Normal Values 2D MEASUREMENTS AND LV FUNCTION LV Ejection Fraction MOD BP 41.1 % >= 55 % Alirio Reyes MD [facility] Accredited Site (Electronically Signed) Final Date: 07 May 2024 12:52 ICD-10 Codes: us Arun Martinez MD ECHO ORD Final Res ult * SCAN-CARDIAC STRIP (05/07/2024 9:32 AM MUSHROOM FARMER) us Scanner OTHER Final Result * SCAN-CARDIAC STRIP (05/07/2024 9:32 AM MUSHROOM FARMER) us Scanner OTHER Final Result * SCAN-CARDIAC STRIP (05/07/2024 9:32 AM MUSHROOM FARMER) us Scanner OTHER Final Result * SCAN-CARDIAC STRIP (05/07/2024 9:32 AM MUSHROOM FARMER) us Scanner OTHER Final Result * (ABNORMAL) TROPONIN T (HS) ONE TIME (05/07/2024 1:36 AM MUSHROOM FARMER) TROPONIN T HS 87(H) 6-15 ng/L ng/L 05/07/2024 2:07 AM MUSHROOM FARMER [facility] Blood BLOOD SPECIMEN / Unknown Venipuncture / Unknown 05/07/2024 1:36 AM MUSHROOM FARMER 05/07/2024 1:43 AM MUSHROOM FARMER us Eric Gomes NP CHEMISTRY Final Resul t [facility] [address] [place] [address] [id number] [address] [place] [address] * SCAN-CARDIAC STRIP (05/07/2024 12:00 AM MUSHROOM FARMER) us Scanner OTHER Final Result * SCAN-CARDIAC STRIP (05/07/2024 12:00 AM MUSHROOM FARMER) us Scanner OTHER Final Result * SCAN-CARDIAC STRIP (05/07/2024 12:00 AM MUSHROOM FARMER) us Scanner OTHER Final Result * SCAN-CARDIAC STRIP (05/07/2024 12:00 AM MUSHROOM FARMER) us Scanner OTHER Final Result * (ABNORMAL) TROPONIN T (HS) ACUTE W/2HR REFLEX (05/06/2024 11:07 PM MUSHROOM FARMER) TROPONIN T HS 90(H) 6-15 ng/L ng/L 05/06/2024 11:31 PM MUSHROOM FARMER [facility] Blood BLOOD SPECIMEN / Unknown Butterfly / Unknown 05/06/2024 11:07 PM MUSHROOM FARMER 05/06/2024 11:11 PM MUSHROOM FARMER Narrative [facility] - 05/06/2024 11:31 PM MUSHROOM FARMER hs-cTnT (Elecsys Troponin T Gen 5) concentration (s) above the sex-specific 99th percentile (16 ng/L or greater for males or 11 ng/L or greater for females) are indicative of myocardial injury. If initial hs-cTnT <=100 ng/L at presentation, a 0h/2h ABSOLUTE (ng/L) delta change (rising or falling) of >=10 ng/L suggests a significant change, whereas a 0h/2h delta change <=3 ng/L suggests no significant change. If initial hs-cTnT >100 ng/L at presentation, a 0h/2h/ RELATIVE (percent, %) delta change of 20% is suggested to distinguish patients with acute vs. chronic myocardial injury. There are multiple etiologies that can cause hs-cTnT increases above the 99th percentile (myocardial injury) other than acute myocardial infarction. Clinical context and careful clinical evaluation are critical for diagnosis and risk-stratification. The diagnosis of acute myocardial infarction requires a rising and/or falling pattern in hs-cTnT concentrations with at least one value above the sex-specific 99th percentile PLUS at least one of the following clinical criteria: ischemic symptoms, new or presumed new significant ST-T wave changes or new LBBB, development of pathological Q waves, imaging evidence of new loss of viable myocardium or new regional wall motion abnormality, or identification of intracoronary atherothrombosis or an acute angiographic culprit on coronary angiography. In appropriate low-risk patients with a non-ischemic electrocardiogram without active chest pain with a symptom onset >3-hours without recurrence, a single initial hs-cTnT<6 ng/L identifies patient with a very low risk in emergency department patient population. us Eric Gomes NP CHEMISTRY Final Resul t Performing Organization Address [facility] Phone Number [facility] SENDOUT INTERNAL [facility] [address] [place] [phone] * EKG 12 LEAD (05/06/2024 10:20 PM MUSHROOM FARMER) Interpretation Normal sinus rhythm Voltage criteria for left ventricular hypertrophy Marked T wave abnormality, consider anterolateral ischemia Prolonged QT Abnormal ECG When compared with ECG of 27-May-2023 09:21, T wave inversion now evident in Inferior leads QT has lengthened BEYOND NOW Ventricular Rate 85 BPM BEYOND NOW Atrial Rate 85 BPM BEYOND NOW P-R Interval 162 ms BEYOND NOW QRS Duration 80 ms BEYOND NOW QT 432 ms BEYOND NOW QTc 514 ms BEYOND NOW P Sumter 57 degrees BEYOND NOW R Sumter 49 degrees BEYOND NOW T Sumter 149 degrees BEYOND NOW 05/06/2024 10:2 0 PM MUSHROOM FARMER 05/07/2024 5:33 PM MUSHROOM FARMER us Eric Gomes NP EKG ORD Final Resul t Performing Organization Address [facility] Co de Phone Number BEYOND NOW [place], [place] * SCAN-CARDIAC STRIP (05/06/2024 3:52 PM MUSHROOM FARMER) us Scanner OTHER Final Result * SCAN-CARDIAC STRIP (05/06/2024 3:52 PM MUSHROOM FARMER) us Scanner OTHER Final Result * SCAN-CARDIAC STRIP (05/06/2024 3:52 PM MUSHROOM FARMER) us Scanner OTHER Final Result * SCAN-CARDIAC STRIP (05/06/2024 3:52 PM MUSHROOM FARMER) us Scanner OTHER Final Result * SCAN-CARDIAC STRIP (05/06/2024 12:42 PM MUSHROOM FARMER) us Scanner OTHER Final Result * SCAN-CARDIAC STRIP (05/06/2024 12:42 PM MUSHROOM FARMER) us Scanner OTHER Final Result * SCAN-CARDIAC STRIP (05/06/2024 12:42 PM MUSHROOM FARMER) us Scanner OTHER Final Result * US VEIN MAPPING UPPER EXTREMITY BILATERAL (04/28/2024 9:45 PM MUSHROOM FARMER) Anatomical Region Laterality Modality ARM L, ARM R Ultrasound 04/28/2024 9:45 PM MUSHROOM FARMER Impressions 04/29/2024 7:38 AM MUSHROOM FARMER 1. Superficial thrombophlebitis of the right cephalic vein at the shoulder. 2. Bilateral upper extremity cephalic and basilic vein measurements as above. 3. Patent bilateral upper extremity subclavian, brachial and radial arteries. The right upper extremity arteries demonstrate monophasic waveforms which raises concern for a mild inflow stenosis. Narrative 04/29/2024 7:38 AM MUSHROOM FARMER For Patients: As a result of the 21st Century Cures Act, medical imaging exams and procedure reports are released immediately into your electronic medical record. You may view this report before your referring provider. If you have questions, please contact your health care provider. EXAM: US VEIN MAPPING UPPER EXTREMITY BILATERAL LOCATION: [facility] DATE: 04/28/2024 INDICATION: Graft suitability COMPARISON: None. TECHNIQUE: Duplex imaging was performed utilizing nunes-scale, compression, augmentation as appropriate, color-flow, Doppler waveform analysis, and spectral Doppler imaging. The cephalic and basilic veins were measured bilaterally. FINDINGS: The bilateral subclavian, brachial and radial artery are patent. The right upper extremity vessels demonstrate monophasic waveforms. The bilateral subclavian veins are patent. RIGHT UPPER EXTREMITY: CEPHALIC VEIN (mm) (Size) Shoulder: 1.6, noncompressible Mid Upper Arm: 2.0 Distal Upper Arm: 1.6 Proximal Forearm: 0.9 Mid Forearm: 0.9 Wrist: 1.1 BASILIC VEIN (mm) (Size) Proximal Upper Arm: 1.8 Mid Upper Arm: 2.0 Distal Upper Arm: 2.6 ARTERIAL STUDY (Velocity cm/s) Subclavian Artery: 55.3 Brachial Artery: 42 Diameter (mm): 3.6 Radial Artery: 34 Diameter (mm): 1.6 LEFT UPPER EXTREMITY: CEPHALIC VEIN (mm) (Size) Shoulder: 2.2 Mid Upper Arm: 1.4 Distal Upper Arm: 1.1 Proximal Forearm: 0.8 Mid Forearm: 1.2 Wrist: 0.9 BASILIC VEIN (mm) (Size) Proximal Upper Arm: 2.8 Mid Upper Arm: 3.2 Distal Upper Arm: 3.1 ARTERIAL STUDY (Velocity cm/s) Subclavian Artery: 71 Brachial Artery: 92 Diameter (mm): 4.2 Radial Artery: 74 Diameter (mm): 1.9 Procedure Note Scotty Morelos MD - 04/29/2024 For Patients: As a result of the Century Cures Act, medical imagingexams and procedure reports are released immediately into your electronicmedical record. You may view this report before your referring provider.If you have questions, please contact your health care provider. EXAM: US VEIN MAPPING UPPER EXTREMITY BILATERAL LOCATION: [facility] DATE: 04/28/2024 INDICATION: Graft suitability COMPARISON: None. TECHNIQUE: Duplex imaging was performed utilizing nunes-scale, compression,augmentation as appropriate, color-flow, Doppler waveform analysis, andspectral Doppler imaging. The cephalic and basilic veins were measuredbilaterally. FINDINGS: The bilateral subclavian, brachial and radial artery are patent.The right upper extremity vessels demonstrate monophasic waveforms. Thebilateral subclavian veins are patent. RIGHT UPPER EXTREMITY: CEPHALIC VEIN (mm) (Size) Shoulder: 1.6, noncompressible Mid Upper Arm: 2.0 Distal Upper Arm: 1.6 Proximal Forearm: 0.9 Mid Forearm: 0.9 Wrist: 1.1 BASILIC VEIN (mm) (Size) Proximal Upper Arm: 1.8 Mid Upper Arm: 2.0 Distal Upper Arm: 2.6 ARTERIAL STUDY (Velocity cm/s) Subclavian Artery: 55.3 Brachial Artery: 42 Diameter (mm): 3.6 Radial Artery: 34 Diameter (mm): 1.6 LEFT UPPER EXTREMITY: CEPHALIC VEIN (mm) (Size) Shoulder: 2.2 Mid Upper Arm: 1.4 Distal Upper Arm: 1.1 Proximal Forearm: 0.8 Mid Forearm: 1.2 Wrist: 0.9 BASILIC VEIN (mm) (Size) Proximal Upper Arm: 2.8 Mid Upper Arm: 3.2 Distal Upper Arm: 3.1 ARTERIAL STUDY (Velocity cm/s) Subclavian Artery: 71 Brachial Artery: 92 Diameter (mm): 4.2 Radial Artery: 74 Diameter (mm): 1.9 IMPRESSION: 1. Superficial thrombophlebitis of the right cephalic vein at [facility]. 2. Bilateral upper extremity cephalic and basilic vein measurements asabove. 3. Patent bilateral upper extremity subclavian, brachial and radialarteries. The right upper extremity arteries demonstrate monophasicwaveforms which raises concern for a mild inflow stenosis. Derick ACKERMAN US Final Res ult * IR CENTRAL VENOUS ACCESS/PORT (04/28/2024 10:48 AM MUSHROOM FARMER) Anatomical Region Laterality Modality X-Ray Angiograph y, Other, Other 04/28/2024 10:4 8 AM MUSHROOM FARMER Impressions 04/28/2024 2:21 PM MUSHROOM FARMER Ultrasound and fluoroscopic guided placement of tunneled 19 cm tip to cuff, right internal jugular dialysis catheter. Narrative 04/28/2024 2:21 PM MUSHROOM FARMER For Patients: As a result of the 21st Century Cures Act, medical imaging exams and procedure reports are released immediately into your electronic medical record. You may view this report before your referring provider. If you have questions, please contact your health care provider. MEANS RADIOLOGY EXAM: TUNNELED CENTRAL VENOUS CATHETER PLACEMENT LOCATION: [facility] CLINICAL HISTORY: The patient has a history of renal failure and requires dialysis. PROCEDURES PERFORMED: Ultrasound-guided puncture of jugular vein Creation of subcutaneous tunnel in chest wall. Placement of dialysis catheter through subcutaneous tunnel, into peel away sheath, and into SVC. MODERATE SEDATION: Versed and Fentanyl were administered intravenously for moderate sedation. Pulse oximetry, heart rate and blood pressure were continuously monitored by an independent trained observer. The physician spent 12 minutes of [id number] moderate sedation time with the patient. ADDITIONAL MEDICATIONS: see EMR CONTRAST: none FLUOROSCOPIC TIME: 0.1 minutes CUMULATIVE AIR KERMA/DOSE: 0.78 mGy. STERILE BARRIER TECHNIQUE: Maximal Sterile Barrier Technique Utilized: Cap AND mask AND sterile gown AND sterile gloves AND sterile full body drape AND hand hygiene AND skin preparation 2% chlorhexidine for cutaneous antisepsis (or acceptable alternative antiseptics). Sterile Ultrasound Technique Utilized ?Sterile gel AND sterile probe covers. UNIVERSAL PROTOCOL: Standard universal protocol per facility guidelines was followed. See EMR for documentation. TECHNIQUE: Risks, benefits and alternatives were explained to the patient and written, informed consent was obtained. The patient was placed in the supine position on the angiography table. The neck and chest were prepped and draped in the usual fashion and anesthetized with 1% lidocaine. Using ultrasound guidance, the internal jugular vein was accessed with a micropuncture system.. A 0.35 wire was advanced through the sheath and into the IVC. A subcutaneous tunnel was then created in the chest wall using blunt dissection. The catheter was then attached to a tunneling device and brought through the tunnel. The venostomy site was sequentially dilated. The catheter was then placed through a peel away sheath, and into the right atrium. The puncture site was closed using surgical glue The catheter was secured to the skin using a Prolene stitch. Each port was dwelled with heparin (1000 units per cc) solution, and the site was dressed in a sterile fashion. The patient tolerated the procedure well without immediate complications. FINDINGS: The right internal jugular vein is anechoic, compressible and patent by ultrasound, and ultrasound images obtained during access show the needle within the vein. Ultrasound images have been permanently captured for documentation. Fluoroscopic images obtained following placement of the catheter, show that the catheter terminates near the cavoatrial junction.. The catheter has a smooth course in the chest wall. The catheter functions well and is available for immediate use. Procedure Note Dipak Corona MD - 04/28/2024 For Patients: As a result of the 21st Century Cures Act, medical imagingexams and procedure reports are released immediately into your electronicmedical record. You may view this report before your referring provider.If you have questions, please contact your health care provider. MEANS RADIOLOGY EXAM: TUNNELED CENTRAL VENOUS CATHETER PLACEMENT LOCATION: [facility] CLINICAL HISTORY: The patient has a history of renal failure and requiresdialysis. PROCEDURES PERFORMED: Ultrasound-guided puncture of jugular vein Creation of subcutaneous tunnel in chest wall. Placement of dialysis catheter through subcutaneous tunnel, into peel awaysheath, and into SVC. MODERATE SEDATION: Versed and Fentanyl were administered intravenously formoderate sedation. Pulse oximetry, heart rate and blood pressure werecontinuously monitored by an independent trained observer. The physicianspent 12 minutes of [id number] moderate sedation time with thepatient. ADDITIONAL MEDICATIONS: see EMR CONTRAST: none FLUOROSCOPIC TIME: 0.1 minutes CUMULATIVE AIR KERMA/DOSE: 0.78 mGy. STERILE BARRIER TECHNIQUE: Maximal Sterile Barrier Technique Utilized: CapAND mask AND sterile gown AND sterile gloves AND sterile full body drapeAND hand hygiene AND skin preparation 2% chlorhexidine for cutaneousantisepsis (or acceptable alternative antiseptics). Sterile UltrasoundTechnique Utilized ?Sterile gel AND sterile probe covers. UNIVERSAL PROTOCOL: Standard universal protocol per facility guidelineswas followed. See EMR for documentation. TECHNIQUE: Risks, benefits and alternatives were explained to the patient andwritten, informed consent was obtained. The patient was placed in thesupine position on the angiography table. The neck and chest were preppedand draped in the usual fashion and anesthetized with 1% lidocaine. Usingultrasound guidance, the internal jugular vein was accessed with amicropuncture system.. A 0.35 wire was advanced through the sheath andinto the IVC. A subcutaneous tunnel was then created in the chest wallusing blunt dissection. The catheter was then attached to a tunnelingdevice and brought through the tunnel. The venostomy site was sequentiallydilated. The catheter was then placed through a peel away sheath, and intothe right atrium. The puncture site was closed using surgical glue Thecatheter was secured to the skin using a Prolene stitch. Each port wasdwelled with heparin (1000 units per cc) solution, and the site wasdressed in a sterile fashion. The patient tolerated the procedure wellwithout immediate complications. FINDINGS: The right internal jugular vein is anechoic, compressible and patent byultrasound, and ultrasound images obtained during access show the needlewithin the vein. Ultrasound images have been permanently captured fordocumentation. Fluoroscopic images obtained following placement of the catheter, showthat the catheter terminates near the cavoatrial junction.. The catheter has a smooth course in the chest wall. The catheter functionswell and is available for immediate use. IMPRESSION: Ultrasound and fluoroscopic guided placement of tunneled 19 cm tip tocuff, right internal jugular dialysis catheter. Zaheer Valerio MD IR Final Result * (ABNORMAL) ANTI HCV (04/28/2024 5:01 AM MUSHROOM FARMER) Pathologist [facility] HEPATITIS C ANTIBODY Reactive, Preliminary Positive(A) Non-React odette 04/28/2024 9:46 AM MUSHROOM FARMER [facility] Comment:Presumptive evidence of antibodies to HCV. Reflexed to HCV RNA Quant (See separate report). Blood BLOOD SPECIMEN / Unknown Venipuncture / Unknown 04/28/2024 5:01 AM MUSHROOM FARMER 04/28/2024 5:17 AM MUSHROOM FARMER Zaheer Valerio MD SEND OUTS Final Result [facility] [address] [place] [address], * ANTI HBS QUANT AHS (04/28/2024 5:01 AM MUSHROOM FARMER) Pathologist [facility] ANTI HBS QUANT <3.50 mIU/mL 04/28/2024 10:01 AM MUSHROOM FARMER [facility] Blood BLOOD SPECIMEN / Unknown Venipuncture / Unknown 04/28/2024 5:01 AM MUSHROOM FARMER 04/28/2024 5:17 AM MUSHROOM FARMER Narrative [facility] - 04/28/2024 10:01 AM MUSHROOM FARMER <8.5 Considered not immune to HBV infection. >=8.5 to < 11.5 Indeterminate result, unable to dertermine if antibody is present at levels consistent with immunity. >= 11.5 Considered immune to HBV infection. Biotin supplements may cause clinically significant interference for this test assay. If interference is suspected, it is strongly recommended that biotin is discontinued for at least one week prior to retesting. Zaheer Valerio MD SEND OUTS Final Result Performing Organization Address City/[facility]/ZIP Co de Phone Number [facility] [address] [place] [address], [place] * (ABNORMAL) ANTI HBC (04/28/2024 5:01 AM MUSHROOM FARMER) ANTI HBC Reactive( A) Non-React odette 04/28/2024 10:01 AM MUSHROOM FARMER [facility] Comment:Anti-HBc detected. P resumptive evidence of HBV infection. Order Anti-HBc IgM if acute infection suspected. Blood BLOOD SPECIMEN / Unknown Venipuncture / Unknown 04/28/2024 5:01 AM MUSHROOM FARMER 04/28/2024 5:17 AM MUSHROOM FARMER Zaheer Valerio MD SEND OUTS Final Result Performing Organization Address [facility] Co de Phone Number [facility] [address] [place] [address], [place] * SCAN-OPERATIVE/PROCEDURE REPORT (04/28/2024 12:00 AM MUSHROOM FARMER) Narrative 04/28/2024 12:00 AM MUSHROOM FARMER Ordered by an unspecified provider. Other Clinical Staff OTHER Final Resul t * HBSAG (HBS) (04/27/2024 2:04 PM MUSHROOM FARMER) Pathologist [facility] HBSAG Nonreactive Nonreactive 04/27/2024 9:11 PM MUSHROOM FARMER [facility] Blood BLOOD SPECIMEN / Unknown IV Start / Unknown 04/27/2024 2:04 PM MUSHROOM FARMER 04/27/2024 2:09 PM MUSHROOM FARMER Zaheer Valerio MD SEND OUTS Final Result Performing Organization Address City/[facility]/ZIP Co de Phone Number [facility] [address] [place] [address], * PROTIME-INR (04/27/2024 2:04 PM MUSHROOM FARMER) INR 1.1 <1.3 04/27/2024 2:20 PM MUSHROOM FARMER [facility] PROTIME 12.1 10.6 - 12.4 sec 04/27/2024 2:20 PM MUSHROOM FARMER [facility] Blood BLOOD SPECIMEN / Unknown IV Start / Unknown 04/27/2024 2:04 PM MUSHROOM FARMER 04/27/2024 2:09 PM MUSHROOM FARMER [facility] - 04/27/2024 2:20 PM MUSHROOM FARMER Therapeutic Range 2.0-3.0 for most anticoagulated patients 2.5-3.5 or 4.0 for high risk patients The INR is only used for patients on stable oral anticoagulant therapy. It makes no significant contribution to the diagnosis or treatment of patients whose Protime is prolonged for other reasons. INR results are increased when heparin levels exceed 1.0 U/mL, which corresponds to an aPTT >125 seconds if the patient is on UFH. Zaheer Valerio MD HEMATOLOGY Final Result [facility] INTERNAL ZIP [id number] [address] [place] [address] * (ABNORMAL) PTH,INTACT (04/27/2024 2:04 PM MUSHROOM FARMER) CALCIUM 8.4(L) 8.8 - 10.4 mg/dL 04/27/2024 9:16 PM MUSHROOM FARMER [facility] Comment: Reference ranges for this test were updated on 03/30/2024 to reflect our healthy population more accurately. Reference range changes are not retroactively applied to results, but previous results using the same methodology can be interpreted in the context of the new reference range. PTH,INTACT 397.0(H) 15.0 - 69.0 pg/mL 04/27/2024 9:16 PM MUSHROOM FARMER [facility] Blood BLOOD SPECIMEN / Unknown IV Start / Unknown 04/27/2024 2:04 PM MUSHROOM FARMER 04/27/2024 2:09 PM MUSHROOM FARMER Zaheer Valerio MD SEND OUTS Final Result [facility] [address] [place] [address], [place] * CK TOTAL (04/27/2024 2:04 PM MUSHROOM FARMER) CK,TOTAL 103 39 - 308 IU/L 04/27/2024 2:37 PM MUSHROOM FARMER [facility] Blood BLOOD SPECIMEN / Unknown IV Start / Unknown 04/27/2024 2:04 PM MUSHROOM FARMER 04/27/2024 2:09 PM MUSHROOM FARMER Zaheer Valerio MD CHEMISTRY Final Result [facility] INTERNAL ZIP [id number] [address] [place] [address] * CALCIUM IONIZED HOSPITAL DRAW ONLY (04/27/2024 2:04 PM MUSHROOM FARMER) Pathologist [facility] CALCIUM,IONIZE D 1.18 1.15 - 1.27 mmol/L 04/27/2024 2:16 PM MUSHROOM FARMER [facility] Blood BLOOD SPECIMEN / Unknown IV Start / Unknown 04/27/2024 2:04 PM MUSHROOM FARMER 04/27/2024 2:10 PM MUSHROOM FARMER Zaheer Valerio MD CHEMISTRY Final Result [facility] INTERNAL ZIP [id number] [address] [place] [address] * SCAN CORRESP-LABORATORY RESULTS (04/26/2024 4:06 PM MUSHROOM FARMER) Narrative 04/26/2024 4:06 PM MUSHROOM FARMER Ordered by an unspecified provider. Other Clinical Staff OTHER Final Resul t * ECHO TTE COMPLETE W CONTRAST (04/26/2024 2:06 PM MUSHROOM FARMER) EJECTION FRACTION 51% PROSOLV Anatomical Region Laterality Modality Ultrasound 04/26/2024 1:27 PM MUSHROOM FARMER Narrative 04/26/2024 2:52 PM MUSHROOM FARMER [facility] [place] [address], [address], [place] [address] Main: [email or web address] Transthoracic Echo Report PAGEBARON ID: [id number] Age: 63 : 1960 Ordering Provider: WARD DUNCAN Exam Date: 04/26/2024 13:27 Gender: M Blueprint Blocker: DIPAKT Height: 68 in BSA: 1.65 m BP: 127 / 69 Weight: 121 lbs BMI: 18.4 kg/m HR: 94 Site: [facility] Location: Inpatient (Portable) Rhythm: Regular Procedure Components: 2D imaging with contrast, Color Doppler, Spectral Doppler Indications: Heart failure, unspecified Technical Quality: Contrast: Definity [facility]#: [id number] Final Conclusion Bi-plane Calculated EF: 51% Technically difficult study - contrast was used to enhance endocardial definition due to suboptimal image quality. Normal left ventricular size, low-normal systolic function, no regional wall motion abnormalities. Elevated left ventricular filling pressure. Normal right ventricular size and systolic function. No hemodynamically significant valvular heart disease. Dilated IVC with reduced inspiratory collapse. No pericardial effusion. Compared to the echocardiogram report from 05/18/2023, the ejection fraction has improved. FINDINGS Left Ventricle Normal left ventricular size. Low normal ejection fraction. Diastolic Function Elevated left ventricular filling pressure. Right Ventricle Normal right ventricular size and function. Left Atrium Left atrial size at the upper limits of normal. Right Atrium Normal right atrial size. Aortic Valve Aortic valve not well visualized. Trace aortic regurgitation. Mitral Valve Structurally normal mitral valve. No significant mitral stenosis. Mild mitral regurgitation. Tricuspid Valve Normal tricuspid valve without significant stenosis or regurgitation. Pulmonic Valve Pulmonic valve not well visualized, without significant stenosis or regurgitation noted on doppler imaging. Pericardium No significant pericardial effusion. Aorta Aortic root measures 3.9 cm. Inferior Vena Cava Dilated IVC with reduced inspiratory collapse. MEASUREMENTS (Male / Female) Normal Values 2D MEASUREMENTS AND LV FUNCTION LVOT Diameter 2.1 cm LVOT Cardiac Output 6.06 l/min LVOT Cardiac Index 3.76 l/min m LVOT Stroke Volume 64.4 ml Stroke Volume Index 40 ml/m LV Ejection Fraction MOD BP 51 % >= 55 % LA Volume MOD BP 57.6 ml LA Volume Index MOD BP 34.9 ml/m 16 - 34 ml/m RV Diastolic Basal Diameter 3.64 cm Sinuses of Valsalva Diameter(d) 3.9 cm Ascending Aorta Diameter(s) 3.7 cm IVC Diameter Expiration 2.4 cm Ascending Aorta Index 2.24 cm/m M MODE TAPSE MM 1.51 cm DIASTOLOGY Mitral E Point Velocity 0.891 m/sec 0.70 - 1.02 m/sec Mitral A Point Velocity 0.874 m/sec 0.06 - 1.06 m/sec Mitral E to A Ratio 1.02 1.1 - 2.1 MV Deceleration Time 206 msec 167 - 231 msec LV E' Lateral Velocity 0.0664 m/sec Mitral E to LV E' Lateral Ratio 13.4 LV E' Septal Velocity 0.05 m/sec Mitral E to LV E' Septal Ratio 17.8 AORTIC VALVE AV Peak Velocity 0.96 m/sec < 2.0 m/sec AV Peak Gradient 3.69 mmHg AV Mean Gradient 2 mmHg AV Velocity Time Integral 18.7 cm LVOT Peak Velocity 0.89 m/sec LVOT Velocity Time Integral 18.6 cm AV Area Cont Eq vti 3.45 cm AV Area Cont Eq pk 3.21 cm AV Dimensionless Index 0.995 MITRAL VALVE MV Peak Gradient 2.74 mmHg MV Mean Gradient 1 mmHg MV Velocity Time Integral 22.1 cm MV Pressure Half Time 60 msec MV Area PHT 3.67 cm PULMONIC VALVE PV Peak Velocity 0.582 m/sec HCM DATA LVOT HOWIE (r) 3.17 mmHg Aortic Root ZScore: 1.60 Charisma Alcocer MD (Electronically Signed) [facility] Accredited Site Final Date: 26 April 2024 14:51 ICD-10 Codes: 428.9 Procedure Note Charisma Alcocer MD - 04/26/2024 [facility] [address], [address], [place] [address] Main: [email or web address] Echo Report PAGE, BARON Milan ID: [id number] Age: 63 : 1960 Ordering Provider:WARD DUNCAN Exam Date: 04/26/2024 13:27 Gender: M Blueprint Blocker: AKHIL Height: 68 in BSA: 1.65 m BP: 127 / 69 Weight: 121 lbs BMI: 18.4 kg/m HR: 94 Site: [facility] Location: Inpatient (Portable) Rhythm: Regular Procedure Components: 2D imaging with contrast, Color Doppler, SpectralDoppler Indications: Heart failure, unspecified Technical Quality: Contrast: Definity [facility]#: [id number] Final Conclusion Bi-plane Calculated EF: 51% Technically difficult study - contrast was used to enhance endocardialdefinition due to suboptimal image quality. Normal left ventricular size, low-normal systolic function, no regionalwall motion abnormalities. Elevated left ventricular filling pressure. Normal right ventricular size and systolic function. No hemodynamically significant valvular heart disease. Dilated IVC with reduced inspiratory collapse. No pericardial effusion. Compared to the echocardiogram report from 05/18/2023, the ejectionfraction has improved. FINDINGS Left Ventricle Normal left ventricular size. Low normal ejectionfraction. Diastolic Function Elevated left ventricular filling pressure. Right Ventricle Normal right ventricular size and function. Left Atrium Left atrial size at the upper limits of normal. Right Atrium Normal right atrial size. Aortic Valve Aortic valve not well visualized. Trace aorticregurgitation. Mitral Valve Structurally normal mitral valve. No significant mitralstenosis. Mild mitral regurgitation. Tricuspid Valve Normal tricuspid valve without significant stenosis orregurgitation. Pulmonic Valve Pulmonic valve not well visualized, without significantstenosis or regurgitation noted on doppler imaging. Pericardium No significant pericardial effusion. Aorta Aortic root measures 3.9 cm. Inferior Vena Cava Dilated IVC with reduced inspiratory collapse. MEASUREMENTS (Male / Female) Normal Values 2D MEASUREMENTS AND LV FUNCTION LVOT Diameter 2.1 cm LVOT Cardiac Output 6.06 l/min LVOT Cardiac Index 3.76 l/min m LVOT Stroke Volume 64.4 ml Stroke Volume Index 40 ml/m LV Ejection Fraction MOD BP 51 % >= 55 % LA Volume MOD BP 57.6 ml LA Volume Index MOD BP 34.9 ml/m 16 - 34 ml/m RV Diastolic Basal Diameter 3.64 cm Sinuses of Valsalva Diameter(d) 3.9 cm Ascending Aorta Diameter(s) 3.7 cm IVC Diameter Expiration 2.4 cm Ascending Aorta Index 2.24 cm/m M MODE TAPSE MM 1.51 cm DIASTOLOGY Mitral E Point Velocity 0.891 m/sec 0.70 - 1.02m/sec Mitral A Point Velocity 0.874 m/sec 0.06 - 1.06m/sec Mitral E to A Ratio 1.02 1.1 - 2.1 MV Deceleration Time 206 msec 167 - 231 msec LV E' Lateral Velocity 0.0664 m/sec Mitral E to LV E' Lateral Ratio 13.4 LV E' Septal Velocity 0.05 m/sec Mitral E to LV E' Septal Ratio 17.8 AORTIC VALVE AV Peak Velocity 0.96 m/sec < 2.0 m/sec AV Peak Gradient 3.69 mmHg AV Mean Gradient 2 mmHg AV Velocity Time Integral 18.7 cm LVOT Peak Velocity 0.89 m/sec LVOT Velocity Time Integral 18.6 cm AV Area Cont Eq vti 3.45 cm AV Area Cont Eq pk 3.21 cm AV Dimensionless Index 0.995 MITRAL VALVE MV Peak Gradient 2.74 mmHg MV Mean Gradient 1 mmHg MV Velocity Time Integral 22.1 cm MV Pressure Half Time 60 msec MV Area PHT 3.67 cm PULMONIC VALVE PV Peak Velocity 0.582 m/sec HCM DATA LVOT HOWIE (r) 3.17 mmHg Aortic Root ZScore: 1.60 Charisma Alcocer MD (Electronically Signed) [facility] Accredited Site Final Date: 26 April 2024 14:51 ICD-10 Codes: 428.9 Ward Duncan DO ECHO ORD Final Result * XR CHEST 2 VIEWS PA AND LATERAL (04/26/2024 12:36 PM MUSHROOM FARMER) Anatomical Region Laterality Modality CHEST, THORAX, Lung, HEART Digit al Radiography 04/26/2024 12:3 6 PM MUSHROOM FARMER Impressions 04/26/2024 1:13 PM MUSHROOM FARMER Hazy opacity projecting over the right lower lung likely reflect areas of consolidation in the right lower lobe. Minimal left basilar atelectasis. No pleural fluid. Normal heart size and pulmonary vascularity. Narrative 04/26/2024 1:13 PM MUSHROOM FARMER For Patients: As a result of the Cures Act, medical imaging exams and procedure reports are released immediately into your electronic medical record. You may view this report before your referring provider. If you have questions, please contact your health care provider. EXAM: XR CHEST 2 VIEWS PA AND LATERAL LOCATION: [facility] DATE: 04/26/2024 INDICATION: Shortness of breath. COMPARISON: Chest film 05/19/2023. Procedure Note Shan Dougherty MD - 04/26/2024 For Patients: As a result of the Cures Act, medical imagingexams and procedure reports are released immediately into your electronicmedical record. You may view this report before your referring provider.If you have questions, please contact your health care provider. EXAM: XR CHEST 2 VIEWS PA AND LATERAL LOCATION: [facility] DATE: 04/26/2024 INDICATION: Shortness of breath. COMPARISON: Chest film 05/19/2023. IMPRESSION: Hazy opacity projecting over the right lower lung likely reflect areas ofconsolidation in the right lower lobe. Minimal left basilar atelectasis.No pleural fluid. Normal heart size and pulmonary vascularity. us Zaheer Valerio MD GENERAL IMAGING Final Result * SCAN-CARDIAC STRIP (04/25/2024 2:58 PM MUSHROOM FARMER) us Scanner OTHER Final Result from Last 3 Months Insurance [facility] Advance Directives * Full Code (Latest Code Status on File) Date Activated Date Inactivated Comments 05/17/2024 3:22 PM 05/26/2024 6:57 PM Question Answer Comments Code Status Discussion: Unable to Assess Preferences, Provider to review later * DNR Date Activated Date Inactivated Comments 05/06/2024 1:55 PM 05/11/2024 7:46 PM Question Answer Comments Code Status Discussion: Reviewed Preferences * Full Code Date Activated Date Inactivated Comments 05/06/2024 12:24 PM 05/06/2024 1:55 PM Question Answer Comments Code Status Discussion: Reviewed Preferences * DNR Date Activated Date Inactivated Comments 04/25/2024 3:00 PM 04/30/2024 5:05 PM States he do esn't want to have any support from machines, wouldn't want us to attempt resuscitation if he dies. 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 05/18/23
--- NOTE | 2024-06-25 01:44 | ED_ITS ---
HPI - General Adult General Chief complaint: Shortness of Breath/Dyspnea <Jean Finney MD - Last Filed: 06/25/24 06:28> Stated complaint: Shortness of breath <Jean Finney MD - Last Filed: 06/25/24 06:28> Time Seen by Provider: 06/25/24 01:47 <Jean Finney MD - Last Filed: 06/25/24 06:28> History of Present Illness HPI narrative: Patient is a 63-year-old gentleman who had his normal dialysis run earlier today. He was in his usual state of health and was at home sleeping when he became suddenly short of breath. Patient states that today was a normal day overall. Patient has come in with similar episodes in the past and has actually required BiPAP. Patient did call for an ambulance and was brought in by squad on 50% oxygen high-flow. Patient has had no fevers no chills no chest pain no orthopnea no PND no lower extremity edema no bleeding. Patient is currently breathing comfortably on supplemental oxygen. <Jean Finney MD - Last Filed: 06/25/24 06:28> Related Data Home medications: Home Medications ?Medication ?Instructions ?Recorded ?Confirmed carvedilol 12.5 mg tablet 6.25 mg PO BID 05/18/23 05/17/24 aspirin 81 mg chewable tablet 1 tab PO DAILY 05/17/24 05/17/24 atorvastatin 40 mg tablet 40 mg PO QPM 05/17/24 05/17/24 bumetanide 2 mg tablet 2 mg PO DAILY 05/17/24 05/17/24 multivitamin with folic acid 400 1 tab PO DAILY 05/17/24 05/17/24 mcg tablet (Daily-Ernestina (with folic acid)) <Jean Finney MD - Last Filed: 06/25/24 06:28> Allergies/adverse reactions: Allergies Allergy/AdvReac Type Severity Reaction Status Date / Time ranitidine AdvReac itch Verified 05/17/24 07:38 <Jean Finney MD - Last Filed: 06/25/24 06:28> Review of Systems Status of ROS: Reports: 10 or more systems reviewed and unremarkable except as noted in History and below <Jean Finney MD - Last Filed: 06/25/24 06:28> [facility] Medical History: Medical History Altered mental status ?R41.82 - Altered mental status, unspecified (ICD-10) Non-STEMI (non-ST elevated myocardial infarction) ?I21.4 - Non-ST elevation (NSTEMI) myocardial infarction (ICD-10) Smoking ?F17.200 - Nicotine dependence, unspecified, uncomplicated (ICD-10) Alcohol use disorder ?F10.90 - Alcohol use, unspecified, uncomplicated (ICD-10) COPD (chronic obstructive pulmonary disease) ?J44.9 - Chronic obstructive pulmonary disease, unspecified (ICD-10) Coronary artery disease ?I25.10 - Atherosclerotic heart disease of hoopa coronary artery without angina pectoris (ICD-10) Stage 4 chronic kidney disease ?N18.4 - Chronic kidney disease, stage 4 (severe) (ICD-10) Pulmonary hypertension ?I27.20 - Pulmonary hypertension, unspecified (ICD-10) Right heart failure ?I50.810 - Right heart failure, unspecified (ICD-10) Heart failure with reduced ejection fraction ?I50.20 - Unspecified systolic (congestive) heart failure (ICD-10) <Jean Finney MD - Last Filed: 06/25/24 06:28> Social History: Social History Narrative: Patient apparently lives in an apartment in [place]. Smokes a pack of cigarettes a day. He has a history of alcohol abuse but current consumption is unknown. Unable to discuss plan of care or goals of care What is your current living situation?: unable to answer Problems where you live: unable to answer Problems where you live details: unknown In the past 12 months, utilities in danger of being shut off: unable to answer In past 12 months, lack of transportation kept you from medical appts, meetings, work, or getting things needed for daily living: unable to answer In the past 12 mos, have been you worried that your food would run out before you had money to buy more?: unable to answer In the past 12 mos, the food you bought just didn't last and you didn't have money to buy more?: unable to answer Highest level of school completed/degree received: don't know Smoking Status: Current every day smoker Do you use any of these nicotine containing products: None Second hand tobacco smoke exposure: Yes How often do you have a drink containing alcohol: 4 or more times a week AUDIT-C Alcohol total score: 4 Non-prescribed substance use: denies use Non-prescribed substance use details: unknown How often does anyone, including family, friends and others, physically hurt you : unable to answer How often does anyone, including family, friends and others, insult or talk down to you: unable to answer How often does anyone, including family, friends and others, threaten you with harm: unable to answer How often does anyone, including family, friends and others, scream or curse at you: unable to answer service: No <Jean Finney MD - Last Filed: 06/25/24 06:28> Exam Narrative: Exam Narrative: EXAM GENERAL: Patient appears cachectic and frail. THYROID: no thyroid nodules or thyromegaly. LYMPH: No supraclavicular or cervical lymphadenopathy. SKIN: Visible skin seen during exam normal or with benign process only. EXT: No dependent lower extremity pedal edema. HEART: Regular rate and rhythm with no murmurs, rubs, or gallops. LUNGS: Markedly decreased breath sounds noted. ABD: Soft, non tender, non distended. PSYCH: Good eye contact, speech is not pressured. <Jean Finney MD - Last Filed: 06/25/24 06:28> Const: Vital Signs, click to edit/add: Vital Signs - 24 hr 06/25/24 01:48 06/25/24 01:50 06/25/24 01:53 Temperature 97.6 F Pulse Rate 127 H Pulse Rate [Pulse Oximeter] 126 H Respiratory Rate 28 H 32 H Blood Pressure 208/128 H Blood Pressure [Ri ght Upper Arm] 200/120 H Pulse Oximetry 93 91 93 Oxygen Delivery Me thod OxyMask Oxygen Flow Rate 8 06/25/24 01:53 06/25/24 02:27 06/25/24 02:32 Temperature Pulse Rate 138 H 135 H Pulse Rate [Pulse Oximeter] Respiratory Rate 20 20 Blood Pressure 199/124 H 177/120 H Blood Pressure [Ri ght Upper Arm] Pulse Oximetry 93 98 98 Oxygen Delivery Me thod OxyMask Oxygen Flow Rate 4 06/25/24 03:02 06/25/24 03:32 06/25/24 04:02 Temperature Pulse Rate 130 H 126 H 107 H Pulse Rate [Pulse Oximeter] Respiratory Rate 20 20 20 Blood Pressure 135/93 H 147/105 H 166/106 H Blood Pressure [Ri ght Upper Arm] Pulse Oximetry 93 93 93 Oxygen Delivery Me thod Oxygen Flow Rate 06/25/24 04:32 06/25/24 05:02 06/25/24 05:32 Temperature Pulse Rate 111 H 106 H 101 H Pulse Rate [Pulse Oximeter] Respiratory Rate 20 20 20 Blood Pressure 179/104 H 193/124 H 198/125 H Blood Pressure [Ri ght Upper Arm] Pulse Oximetry 92 91 90 Oxygen Delivery Me thod OxyMask Oxygen Flow Rate 2 06/25/24 06:02 06/25/24 06:32 06/25/24 07:00 Temperature Pulse Rate 112 H 101 H 108 H Pulse Rate [Pulse Oximeter] Respiratory Rate 20 20 Blood Pressure 191/124 H 200/133 H Blood Pressure [Ri ght Upper Arm] Pulse Oximetry 93 93 94 Oxygen Delivery Me thod Oxygen Flow Rate 06/25/24 07:02 06/25/24 07:15 06/25/24 07:30 Temperature Pulse Rate 109 H 110 H 110 H Pulse Rate [Pulse Oximeter] Respiratory Rate Blood Pressure 195/123 H Blood Pressure [Ri ght Upper Arm] Pulse Oximetry 93 94 95 Oxygen Delivery Me thod Oxygen Flow Rate 06/25/24 07:32 06/25/24 07:45 06/25/24 08:00 Temperature Pulse Rate 109 H 107 H 111 H Pulse Rate [Pulse Oximeter] Respiratory Rate Blood Pressure 193/136 H Blood Pressure [Ri ght Upper Arm] Pulse Oximetry 95 95 95 Oxygen Delivery Me thod Oxygen Flow Rate 06/25/24 08:02 06/25/24 08:15 06/25/24 08:30 Temperature Pulse Rate 116 H 112 H 111 H Pulse Rate [Pulse Oximeter] Respiratory Rate Blood Pressure 201/126 H Blood Pressure [Ri ght Upper Arm] Pulse Oximetry 95 95 96 Oxygen Delivery Me thod Oxygen Flow Rate 06/25/24 08:32 06/25/24 08:54 06/25/24 09:00 Temperature Pulse Rate 113 H 117 H 113 H Pulse Rate [Pulse Oximeter] Respiratory Rate Blood Pressure 184/118 H Blood Pressure [Ri ght Upper Arm] Pulse Oximetry 97 96 98 Oxygen Delivery Me thod Oxygen Flow Rate 06/25/24 09:02 06/25/24 09:15 06/25/24 09:30 Temperature Pulse Rate 110 H 99 107 H Pulse Rate [Pulse Oximeter] Respiratory Rate Blood Pressure 194/121 H Blood Pressure [Ri ght Upper Arm] Pulse Oximetry 98 98 95 Oxygen Delivery Me thod Oxygen Flow Rate 06/25/24 09:45 06/25/24 10:00 06/25/24 10:02 Temperature Pulse Rate 103 H 98 98 Pulse Rate [Pulse Oximeter] Respiratory Rate Blood Pressure 184/111 H Blood Pressure [Ri ght Upper Arm] Pulse Oximetry 95 97 97 Oxygen Delivery Me thod Oxygen Flow Rate 06/25/24 10:15 06/25/24 10:30 06/25/24 10:32 Temperature Pulse Rate 102 H 99 69 Pulse Rate [Pulse Oximeter] Respiratory Rate Blood Pressure 180/107 H Blood Pressure [Ri ght Upper Arm] Pulse Oximetry 97 95 92 Oxygen Delivery Me thod Oxygen Flow Rate 06/25/24 10:45 06/25/24 11:00 06/25/24 11:02 Temperature Pulse Rate 97 89 84 Pulse Rate [Pulse Oximeter] Respiratory Rate Blood Pressure 166/122 H Blood Pressure [Ri ght Upper Arm] Pulse Oximetry 94 96 96 Oxygen Delivery Me thod Oxygen Flow Rate 06/25/24 11:03 06/25/24 11:15 06/25/24 11:30 Temperature Pulse Rate 102 H 83 84 Pulse Rate [Pulse Oximeter] Respiratory Rate Blood Pressure Blood Pressure [Ri ght Upper Arm] Pulse Oximetry 96 94 94 Oxygen Delivery Me thod Oxygen Flow Rate 06/25/24 11:32 06/25/24 11:45 06/25/24 12:00 Temperature Pulse Rate 81 80 94 Pulse Rate [Pulse Oximeter] Respiratory Rate Blood Pressure 177/131 H Blood Pressure [Ri ght Upper Arm] Pulse Oximetry 96 95 95 Oxygen Delivery Me thod Oxygen Flow Rate 06/25/24 12:02 06/25/24 12:15 06/25/24 12:30 Temperature Pulse Rate 90 83 80 Pulse Rate [Pulse Oximeter] Respiratory Rate Blood Pressure 188/116 H Blood Pressure [Ri ght Upper Arm] Pulse Oximetry 94 96 94 Oxygen Delivery Me thod Oxygen Flow Rate 06/25/24 12:32 06/25/24 12:45 06/25/24 13:00 Temperature Pulse Rate 86 99 90 Pulse Rate [Pulse Oximeter] Respiratory Rate Blood Pressure 180/114 H Blood Pressure [Ri ght Upper Arm] Pulse Oximetry 94 94 95 Oxygen Delivery Me thod Oxygen Flow Rate 06/25/24 13:02 06/25/24 13:15 06/25/24 13:23 Temperature 97.5 F L Pulse Rate 94 101 H Pulse Rate [Pulse Oximeter] 103 H Respiratory Rate 20 Blood Pressure 175/109 H Blood Pressure [Ri ght Upper Arm] 173/115 H Pulse Oximetry 93 95 95 Oxygen Delivery Me thod OxyMask Oxygen Flow Rate 2 06/25/24 15:39 06/25/24 17:53 Temperature 97.5 F L 97.1 F L Pulse Rate Pulse Rate [Pulse Oximeter] 105 H 112 H Respiratory Rate 18 18 Blood Pressure Blood Pressure [Ri ght Upper Arm] 184/114 H 203/128 H Pulse Oximetry 94 92 Oxygen Delivery Me thod OxyMask OxyMask Oxygen Flow Rate 2 2 <Jean Finney MD - Last Filed: 06/25/24 06:28> Vital Signs, click to edit/add: Vital Signs - 24 hr 06/25/24 01:48 06/25/24 01:50 06/25/24 01:53 Temperature 97.6 F Pulse Rate 127 H Pulse Rate [Pulse Oximeter] 126 H Respiratory Rate 28 H 32 H Blood Pressure 208/128 H Blood Pressure [Ri ght Upper Arm] 200/120 H Pulse Oximetry 93 91 93 Oxygen Delivery Me thod OxyMask Oxygen Flow Rate 8 06/25/24 01:53 06/25/24 02:27 06/25/24 02:32 Temperature Pulse Rate 138 H 135 H Pulse Rate [Pulse Oximeter] Respiratory Rate 20 20 Blood Pressure 199/124 H 177/120 H Blood Pressure [Ri ght Upper Arm] Pulse Oximetry 93 98 98 Oxygen Delivery Me thod OxyMask Oxygen Flow Rate 4 06/25/24 03:02 06/25/24 03:32 06/25/24 04:02 Temperature Pulse Rate 130 H 126 H 107 H Pulse Rate [Pulse Oximeter] Respiratory Rate 20 20 20 Blood Pressure 135/93 H 147/105 H 166/106 H Blood Pressure [Ri ght Upper Arm] Pulse Oximetry 93 93 93 Oxygen Delivery Me thod Oxygen Flow Rate 06/25/24 04:32 06/25/24 05:02 06/25/24 05:32 Temperature Pulse Rate 111 H 106 H 101 H Pulse Rate [Pulse Oximeter] Respiratory Rate 20 20 20 Blood Pressure 179/104 H 193/124 H 198/125 H Blood Pressure [Ri ght Upper Arm] Pulse Oximetry 92 91 90 Oxygen Delivery Me thod OxyMask Oxygen Flow Rate 2 06/25/24 06:02 06/25/24 06:32 06/25/24 07:00 Temperature Pulse Rate 112 H 101 H 108 H Pulse Rate [Pulse Oximeter] Respiratory Rate 20 20 Blood Pressure 191/124 H 200/133 H Blood Pressure [Ri ght Upper Arm] Pulse Oximetry 93 93 94 Oxygen Delivery Me thod Oxygen Flow Rate 06/25/24 07:02 06/25/24 07:15 06/25/24 07:30 Temperature Pulse Rate 109 H 110 H 110 H Pulse Rate [Pulse Oximeter] Respiratory Rate Blood Pressure 195/123 H Blood Pressure [Ri ght Upper Arm] Pulse Oximetry 93 94 95 Oxygen Delivery Me thod Oxygen Flow Rate 06/25/24 07:32 06/25/24 07:45 06/25/24 08:00 Temperature Pulse Rate 109 H 107 H 111 H Pulse Rate [Pulse Oximeter] Respiratory Rate Blood Pressure 193/136 H Blood Pressure [Ri ght Upper Arm] Pulse Oximetry 95 95 95 Oxygen Delivery Me thod Oxygen Flow Rate 06/25/24 08:02 06/25/24 08:15 06/25/24 08:30 Temperature Pulse Rate 116 H 112 H 111 H Pulse Rate [Pulse Oximeter] Respiratory Rate Blood Pressure 201/126 H Blood Pressure [Ri ght Upper Arm] Pulse Oximetry 95 95 96 Oxygen Delivery Me thod Oxygen Flow Rate 06/25/24 08:32 06/25/24 08:54 06/25/24 09:00 Temperature Pulse Rate 113 H 117 H 113 H Pulse Rate [Pulse Oximeter] Respiratory Rate Blood Pressure 184/118 H Blood Pressure [Ri ght Upper Arm] Pulse Oximetry 97 96 98 Oxygen Delivery Me thod Oxygen Flow Rate 06/25/24 09:02 06/25/24 09:15 06/25/24 09:30 Temperature Pulse Rate 110 H 99 107 H Pulse Rate [Pulse Oximeter] Respiratory Rate Blood Pressure 194/121 H Blood Pressure [Ri ght Upper Arm] Pulse Oximetry 98 98 95 Oxygen Delivery Me thod Oxygen Flow Rate 06/25/24 09:45 06/25/24 10:00 06/25/24 10:02 Temperature Pulse Rate 103 H 98 98 Pulse Rate [Pulse Oximeter] Respiratory Rate Blood Pressure 184/111 H Blood Pressure [Ri ght Upper Arm] Pulse Oximetry 95 97 97 Oxygen Delivery Me thod Oxygen Flow Rate 06/25/24 10:15 06/25/24 10:30 06/25/24 10:32 Temperature Pulse Rate 102 H 99 69 Pulse Rate [Pulse Oximeter] Respiratory Rate Blood Pressure 180/107 H Blood Pressure [Ri ght Upper Arm] Pulse Oximetry 97 95 92 Oxygen Delivery Me thod Oxygen Flow Rate 06/25/24 10:45 06/25/24 11:00 06/25/24 11:02 Temperature Pulse Rate 97 89 84 Pulse Rate [Pulse Oximeter] Respiratory Rate Blood Pressure 166/122 H Blood Pressure [Ri ght Upper Arm] Pulse Oximetry 94 96 96 Oxygen Delivery Me thod Oxygen Flow Rate 06/25/24 11:03 06/25/24 11:15 06/25/24 11:30 Temperature Pulse Rate 102 H 83 84 Pulse Rate [Pulse Oximeter] Respiratory Rate Blood Pressure Blood Pressure [Ri ght Upper Arm] Pulse Oximetry 96 94 94 Oxygen Delivery Me thod Oxygen Flow Rate 06/25/24 11:32 06/25/24 11:45 06/25/24 12:00 Temperature Pulse Rate 81 80 94 Pulse Rate [Pulse Oximeter] Respiratory Rate Blood Pressure 177/131 H Blood Pressure [Ri ght Upper Arm] Pulse Oximetry 96 95 95 Oxygen Delivery Me thod Oxygen Flow Rate 06/25/24 12:02 06/25/24 12:15 06/25/24 12:30 Temperature Pulse Rate 90 83 80 Pulse Rate [Pulse Oximeter] Respiratory Rate Blood Pressure 188/116 H Blood Pressure [Ri ght Upper Arm] Pulse Oximetry 94 96 94 Oxygen Delivery Me thod Oxygen Flow Rate 06/25/24 12:32 06/25/24 12:45 06/25/24 13:00 Temperature Pulse Rate 86 99 90 Pulse Rate [Pulse Oximeter] Respiratory Rate Blood Pressure 180/114 H Blood Pressure [Ri ght Upper Arm] Pulse Oximetry 94 94 95 Oxygen Delivery Me thod Oxygen Flow Rate 06/25/24 13:02 06/25/24 13:15 06/25/24 13:23 Temperature 97.5 F L Pulse Rate 94 101 H Pulse Rate [Pulse Oximeter] 103 H Respiratory Rate 20 Blood Pressure 175/109 H Blood Pressure [Ri ght Upper Arm] 173/115 H Pulse Oximetry 93 95 95 Oxygen Delivery Me thod OxyMask Oxygen Flow Rate 2 06/25/24 15:39 06/25/24 17:53 Temperature 97.5 F L 97.1 F L Pulse Rate Pulse Rate [Pulse Oximeter] 105 H 112 H Respiratory Rate 18 18 Blood Pressure Blood Pressure [Ri ght Upper Arm] 184/114 H 203/128 H Pulse Oximetry 94 92 Oxygen Delivery Me thod OxyMask OxyMask Oxygen Flow Rate 2 2 <Nadege Kunz MD - Last Filed: 06/25/24 15:30> Vital Signs, click to edit/add: Vital Signs - 24 hr 06/25/24 01:48 06/25/24 01:50 06/25/24 01:53 Temperature 97.6 F Pulse Rate 127 H Pulse Rate [Pulse Oximeter] 126 H Respiratory Rate 28 H 32 H Blood Pressure 208/128 H Blood Pressure [Ri ght Upper Arm] 200/120 H Pulse Oximetry 93 91 93 Oxygen Delivery Me thod OxyMask Oxygen Flow Rate 8 06/25/24 01:53 06/25/24 02:27 06/25/24 02:32 Temperature Pulse Rate 138 H 135 H Pulse Rate [Pulse Oximeter] Respiratory Rate 20 20 Blood Pressure 199/124 H 177/120 H Blood Pressure [Ri ght Upper Arm] Pulse Oximetry 93 98 98 Oxygen Delivery Me thod OxyMask Oxygen Flow Rate 4 06/25/24 03:02 06/25/24 03:32 06/25/24 04:02 Temperature Pulse Rate 130 H 126 H 107 H Pulse Rate [Pulse Oximeter] Respiratory Rate 20 20 20 Blood Pressure 135/93 H 147/105 H 166/106 H Blood Pressure [Ri ght Upper Arm] Pulse Oximetry 93 93 93 Oxygen Delivery Me thod Oxygen Flow Rate 06/25/24 04:32 06/25/24 05:02 06/25/24 05:32 Temperature Pulse Rate 111 H 106 H 101 H Pulse Rate [Pulse Oximeter] Respiratory Rate 20 20 20 Blood Pressure 179/104 H 193/124 H 198/125 H Blood Pressure [Ri ght Upper Arm] Pulse Oximetry 92 91 90 Oxygen Delivery Me thod OxyMask Oxygen Flow Rate 2 06/25/24 06:02 06/25/24 06:32 06/25/24 07:00 Temperature Pulse Rate 112 H 101 H 108 H Pulse Rate [Pulse Oximeter] Respiratory Rate 20 20 Blood Pressure 191/124 H 200/133 H Blood Pressure [Ri ght Upper Arm] Pulse Oximetry 93 93 94 Oxygen Delivery Me thod Oxygen Flow Rate 06/25/24 07:02 06/25/24 07:15 06/25/24 07:30 Temperature Pulse Rate 109 H 110 H 110 H Pulse Rate [Pulse Oximeter] Respiratory Rate Blood Pressure 195/123 H Blood Pressure [Ri ght Upper Arm] Pulse Oximetry 93 94 95 Oxygen Delivery Me thod Oxygen Flow Rate 06/25/24 07:32 06/25/24 07:45 06/25/24 08:00 Temperature Pulse Rate 109 H 107 H 111 H Pulse Rate [Pulse Oximeter] Respiratory Rate Blood Pressure 193/136 H Blood Pressure [Ri ght Upper Arm] Pulse Oximetry 95 95 95 Oxygen Delivery Me thod Oxygen Flow Rate 06/25/24 08:02 06/25/24 08:15 06/25/24 08:30 Temperature Pulse Rate 116 H 112 H 111 H Pulse Rate [Pulse Oximeter] Respiratory Rate Blood Pressure 201/126 H Blood Pressure [Ri ght Upper Arm] Pulse Oximetry 95 95 96 Oxygen Delivery Me thod Oxygen Flow Rate 06/25/24 08:32 06/25/24 08:54 06/25/24 09:00 Temperature Pulse Rate 113 H 117 H 113 H Pulse Rate [Pulse Oximeter] Respiratory Rate Blood Pressure 184/118 H Blood Pressure [Ri ght Upper Arm] Pulse Oximetry 97 96 98 Oxygen Delivery Me thod Oxygen Flow Rate 06/25/24 09:02 06/25/24 09:15 06/25/24 09:30 Temperature Pulse Rate 110 H 99 107 H Pulse Rate [Pulse Oximeter] Respiratory Rate Blood Pressure 194/121 H Blood Pressure [Ri ght Upper Arm] Pulse Oximetry 98 98 95 Oxygen Delivery Me thod Oxygen Flow Rate 06/25/24 09:45 06/25/24 10:00 06/25/24 10:02 Temperature Pulse Rate 103 H 98 98 Pulse Rate [Pulse Oximeter] Respiratory Rate Blood Pressure 184/111 H Blood Pressure [Ri ght Upper Arm] Pulse Oximetry 95 97 97 Oxygen Delivery Me thod Oxygen Flow Rate 06/25/24 10:15 06/25/24 10:30 06/25/24 10:32 Temperature Pulse Rate 102 H 99 69 Pulse Rate [Pulse Oximeter] Respiratory Rate Blood Pressure 180/107 H Blood Pressure [Ri ght Upper Arm] Pulse Oximetry 97 95 92 Oxygen Delivery Me thod Oxygen Flow Rate 06/25/24 10:45 06/25/24 11:00 06/25/24 11:02 Temperature Pulse Rate 97 89 84 Pulse Rate [Pulse Oximeter] Respiratory Rate Blood Pressure 166/122 H Blood Pressure [Ri ght Upper Arm] Pulse Oximetry 94 96 96 Oxygen Delivery Me thod Oxygen Flow Rate 06/25/24 11:03 06/25/24 11:15 06/25/24 11:30 Temperature Pulse Rate 102 H 83 84 Pulse Rate [Pulse Oximeter] Respiratory Rate Blood Pressure Blood Pressure [Ri ght Upper Arm] Pulse Oximetry 96 94 94 Oxygen Delivery Me thod Oxygen Flow Rate 06/25/24 11:32 06/25/24 11:45 06/25/24 12:00 Temperature Pulse Rate 81 80 94 Pulse Rate [Pulse Oximeter] Respiratory Rate Blood Pressure 177/131 H Blood Pressure [Ri ght Upper Arm] Pulse Oximetry 96 95 95 Oxygen Delivery Me thod Oxygen Flow Rate 06/25/24 12:02 06/25/24 12:15 06/25/24 12:30 Temperature Pulse Rate 90 83 80 Pulse Rate [Pulse Oximeter] Respiratory Rate Blood Pressure 188/116 H Blood Pressure [Ri ght Upper Arm] Pulse Oximetry 94 96 94 Oxygen Delivery Me thod Oxygen Flow Rate 06/25/24 12:32 06/25/24 12:45 06/25/24 13:00 Temperature Pulse Rate 86 99 90 Pulse Rate [Pulse Oximeter] Respiratory Rate Blood Pressure 180/114 H Blood Pressure [Ri ght Upper Arm] Pulse Oximetry 94 94 95 Oxygen Delivery Me thod Oxygen Flow Rate 06/25/24 13:02 06/25/24 13:15 06/25/24 13:23 Temperature 97.5 F L Pulse Rate 94 101 H Pulse Rate [Pulse Oximeter] 103 H Respiratory Rate 20 Blood Pressure 175/109 H Blood Pressure [Ri ght Upper Arm] 173/115 H Pulse Oximetry 93 95 95 Oxygen Delivery Me thod OxyMask Oxygen Flow Rate 2 06/25/24 15:39 06/25/24 17:53 Temperature 97.5 F L 97.1 F L Pulse Rate Pulse Rate [Pulse Oximeter] 105 H 112 H Respiratory Rate 18 18 Blood Pressure Blood Pressure [Ri ght Upper Arm] 184/114 H 203/128 H Pulse Oximetry 94 92 Oxygen Delivery Me thod OxyMask OxyMask Oxygen Flow Rate 2 2 <[place] Zhang MD - Last Filed: 06/25/24 20:34> Course Course ED Course: Patient appears to be reasonably stable asking to go to sleep. Did start evaluation with standard laboratory studies EKG chest x-ray will give him a DuoNeb and plan to reassess. <Jean Finney MD - Last Filed: 06/25/24 06:28> Patient appears to be reasonably stable asking to go to sleep. Did start evaluation with standard laboratory studies EKG chest x-ray will give him a DuoNeb and plan to reassess. I was asked to take over the care of this patient as he is waiting for placement. His CBC shows a white cell count of 12.11, hemoglobin of 10.7 and a platelet count of 270 2-1 of these values are significantly above the patient's baseline. His ABG showed a pH of 7.1, pCO2 49, HC03 of 20. His initial chemistries showed a sodium 145, potassium 5.6 and his creatinine was 7.9. This was done at 130 in the morning. His repeat chemistry show potassium 6.2, creatinine of 8.1, BUN of 66. Glucose was 116. Initial lactate was 3.3. LFTs unremarkable. Chest x-ray shows cardiomegaly and prominent vascular markings suspicious for heart failure and fluid overload. He has a unchanged opacity in the right mid to lower lung. We have called every hospital in the area and no beds are available. We finally did he get a 2-4 hour wait at [facility], Dr. Clarke accepting. I also spoke to their assistant store manager sales who recommended calcium gluconate dextrose/insulin treatment given his hyperkalemia and delay for dialysis. Therefore patient was given 1000 mg of calcium glucagon an amp of D50 and 10 units of insulin. He has had little to no urine output in the last 12 hours. He remains hemodynamically stable. Because of the persistent opacity in the right lung we did proceed with a chest CT. This shows a spiculated mass. Further imaging with a CT scan or biopsy recommended. Discussed this with the patient. He states that he is unaware of this new finding. We discussed for needing further imaging or biopsy and he states that he understands. <Nadege Kunz MD - Last Filed: 06/25/24 15:30> Reevaluation(s) Reevaluation #1: Patient signed out to Dr. Zhang at shift change -[id number]. Patient has been accepted for a bed at [facility] by Dr. Aopdaca. Was accepted at about 1:00 p.m. with a 2-4 hour delay for bed assignment. Anticipate these will be able to transfer by about 5:00 p.m.. At about 445 nurses were called by [facility] with a bed assignment. It turns out that Dr. Kunz had spoken to a hospitalist at [facility] this morning, but there were no beds available. She had been unaware that he was on a [facility] wait list. I also contacted the [facility] transfer line. He has been accepted by Dr. Mason to [facility]. The anticipate he will have his bed assigned within the hour. I recheck the patient. He remains hypertensive. Heart rate around 99 is, sinus on the monitor. Oxygen 95%, breathing easily. He is getting face mask oxygen. No respiratory distress. Watching TV. Patient does not know his primary care provider is, does not know his assistant store manager sales. He does not really know where he has had his previous medical care. He knows he has a dialysis catheter in his right upper chest and that he took a hour long cab ride a couple weeks ago to have it taken out and have a fistula placed. However when he got to that location the doctor had an emergency and could not perform his procedure that day. He does not know where he went to get his fistula placed. He is really only oriented to person, but not place or date. This is apparently at or near his baseline. No other focal deficits. The patient does not care whether he transfers to [facility] or [facility]. I reviewed his [facility] medical record he does have multiple previous hospitalizations [facility]. Therefore I think it makes sense for him to keep that [facility], which will give his providers continuity Recheck-patient remained stable here in the ER. Transfer by EMS to [facility] <Austin Zhang MD - Last Filed: 06/25/24 20:34> Vital Signs Vital signs: Initial Vital Signs Temperature 97.6 F 06/25/24 01:48 Temperature Source Temporal Artery Scan 06/25/24 01:48 Pulse Rate 126 H 06/25/24 01:48 Respiratory Rate 28 H 06/25/24 01:48 Respiratory Effort Normal, Short of Breath, Tripoding, Tachypnea, Shortness of Breath at Re 06/25/24 01:48 Respiratory Depth Normal 06/25/24 01:48 Respiratory Pattern Tachypnea 06/25/24 01:48 Blood Pressure 200/120 H 06/25/24 01:48 Blood Pressure Mean 146 H 06/25/24 01:48 Blood Pressure Position Sitting 06/25/24 01:48 Pulse Oximetry 93 06/25/24 01:48 Oxygen Delivery Method OxyMask 06/25/24 01:48 Oxygen Flow Rate 8 06/25/24 01:48 Vital Signs Temperature 97.6 F 06/25/24 01:48 Pulse Rate 126 H 06/25/24 01:48 Respiratory Rate 28 H 06/25/24 01:48 Blood Pressure 200/120 H 06/25/24 01:48 Pulse Oximetry 93 06/25/24 01:48 Oxygen Delivery Method OxyMask 06/25/24 01:48 Oxygen Flow Rate 8 06/25/24 01:48 Temperature 97.1 F L 06/25/24 17:53 Pulse Rate 112 H 06/25/24 17:53 Respiratory Rate 18 06/25/24 17:53 Blood Pressure 203/128 H 06/25/24 17:53 Pulse Oximetry 92 06/25/24 17:53 Oxygen Delivery Method OxyMask 06/25/24 17:53 Oxygen Flow Rate 2 06/25/24 17:53 <Jean Finney MD - Last Filed: 06/25/24 06:28> Initial Vital Signs Temperature 97.6 F 06/25/24 01:48 Temperature Source Temporal Artery Scan 06/25/24 01:48 Pulse Rate 126 H 06/25/24 01:48 Respiratory Rate 28 H 06/25/24 01:48 Respiratory Effort Normal, Short of Breath, Tripoding, Tachypnea, Shortness of Breath at Re 06/25/24 01:48 Respiratory Depth Normal 06/25/24 01:48 Respiratory Pattern Tachypnea 06/25/24 01:48 Blood Pressure 200/120 H 06/25/24 01:48 Blood Pressure Mean 146 H 06/25/24 01:48 Blood Pressure Position Sitting 06/25/24 01:48 Pulse Oximetry 93 06/25/24 01:48 Oxygen Delivery Method OxyMask 06/25/24 01:48 Oxygen Flow Rate 8 06/25/24 01:48 Vital Signs Temperature 97.6 F 06/25/24 01:48 Pulse Rate 126 H 06/25/24 01:48 Respiratory Rate 28 H 06/25/24 01:48 Blood Pressure 200/120 H 06/25/24 01:48 Pulse Oximetry 93 06/25/24 01:48 Oxygen Delivery Method OxyMask 06/25/24 01:48 Oxygen Flow Rate 8 06/25/24 01:48 Temperature 97.1 F L 06/25/24 17:53 Pulse Rate 112 H 06/25/24 17:53 Respiratory Rate 18 06/25/24 17:53 Blood Pressure 203/128 H 06/25/24 17:53 Pulse Oximetry 92 06/25/24 17:53 Oxygen Delivery Method OxyMask 06/25/24 17:53 Oxygen Flow Rate 2 06/25/24 17:53 <Nadege Kunz MD - Last Filed: 06/25/24 15:30> Initial Vital Signs Temperature 97.6 F 06/25/24 01:48 Temperature Source Temporal Artery Scan 06/25/24 01:48 Pulse Rate 126 H 06/25/24 01:48 Respiratory Rate 28 H 06/25/24 01:48 Respiratory Effort Normal, Short of Breath, Tripoding, Tachypnea, Shortness of Breath at Re 06/25/24 01:48 Respiratory Depth Normal 06/25/24 01:48 Respiratory Pattern Tachypnea 06/25/24 01:48 Blood Pressure 200/120 H 06/25/24 01:48 Blood Pressure Mean 146 H 06/25/24 01:48 Blood Pressure Position Sitting 06/25/24 01:48 Pulse Oximetry 93 06/25/24 01:48 Oxygen Delivery Method OxyMask 06/25/24 01:48 Oxygen Flow Rate 8 06/25/24 01:48 Vital Signs Temperature 97.6 F 06/25/24 01:48 Pulse Rate 126 H 06/25/24 01:48 Respiratory Rate 28 H 06/25/24 01:48 Blood Pressure 200/120 H 06/25/24 01:48 Pulse Oximetry 93 06/25/24 01:48 Oxygen Delivery Method OxyMask 06/25/24 01:48 Oxygen Flow Rate 8 06/25/24 01:48 Temperature 97.1 F L 06/25/24 17:53 Pulse Rate 112 H 06/25/24 17:53 Respiratory Rate 18 06/25/24 17:53 Blood Pressure 203/128 H 06/25/24 17:53 Pulse Oximetry 92 06/25/24 17:53 Oxygen Delivery Method OxyMask 06/25/24 17:53 Oxygen Flow Rate 2 06/25/24 17:53 <Austin Zhang MD - Last Filed: 06/25/24 20:34> Medications Administered Medications: Discontinued Medications Generic Name Dose Route Start Last Admin Trade Name Freq PRN Reason Stop Dose Admin Albuterol/Ipratropium 1 neb 06/25/24 01:41 06/25/24 01:45 Iprat-Albut 0.5-2.5 Mg/3 Ml Neb 06/25/24 01:42 1 neb ONCE ONE Administration Dextrose 25 gm 06/25/24 14:18 06/25/24 15:03 Dextrose 50 % Syringe IVP 06/25/24 14:19 25 gm ONCE ONE Administration Furosemide 40 mg 06/25/24 02:46 06/25/24 02:56 Furosemide 10 Mg/Ml Inj IVP 06/25/24 02:47 40 mg ONCE ONE Administration Piperacillin Sod/Tazobactam 100 mls @ 200 mls/hr 06/25/24 02:12 06/25/24 04:18 Sod 2.25 gm/ Sodium Chloride IVPB 06/25/24 02:13 Infused ONCE ONE Infusion Azithromycin 500 mg/ Sodium 255 mls @ 255 mls/hr 06/25/24 02:12 06/25/24 03:31 Chloride IVPB 06/25/24 02:13 Infused ONCE ONE Infusion Sodium Chloride 500 mls @ 500 mls/hr 06/25/24 02:15 06/25/24 02:24 0.9 % Sodium Chloride 500 Ml IV 06/25/24 03:14 Not Given .Q1H ONE Calcium Gluconate/Sodium Chloride 1,000 mg in 50 mls @ 100 mls/hr 06/25/24 14:17 06/25/24 15:43 Calcium Gluc 1,000mg/50 Ml IVPB 06/25/24 14:46 Infused ONCE ONE Infusion Insulin Human Regular 10 unit 06/25/24 14:18 06/25/24 15:00 Insulin Regular, Human 100 Unit/Ml Vial IVP 06/25/24 14:19 10 unit ONCE ONE Administration Methylprednisolone Sodium Succinate 125 mg 06/25/24 01:56 06/25/24 02:05 Methylprednisolone Sod Succ 62.5 Mg/Ml (125) IVP 06/25/24 01:57 125 mg ONCE ONE Administration <Jean Finney MD - Last Filed: 06/25/24 06:28> Discontinued Medications Generic Name Dose Route Start Last Admin Trade Name Quincyq PRN Reason Stop Dose Admin Albuterol/Ipratropium 1 neb 06/25/24 01:41 06/25/24 01:45 Iprat-Albut 0.5-2.5 Mg/3 Ml Neb IH 06/25/24 01:42 1 neb ONCE ONE Administration Dextrose 25 gm 06/25/24 14:18 06/25/24 15:03 Dextrose 50 % Syringe IVP 06/25/24 14:19 25 gm ONCE ONE Administration Furosemide 40 mg 06/25/24 02:46 06/25/24 02:56 Furosemide 10 Mg/Ml Inj IVP 06/25/24 02:47 40 mg ONCE ONE Administration Piperacillin Sod/Tazobactam 100 mls @ 200 mls/hr 06/25/24 02:12 06/25/24 04:18 Sod 2.25 gm/ Sodium Chloride IVPB 06/25/24 02:13 Infused ONCE ONE Infusion Azithromycin 500 mg/ Sodium 255 mls @ 255 mls/hr 06/25/24 02:12 06/25/24 03:31 Chloride IVPB 06/25/24 02:13 Infused ONCE ONE Infusion Sodium Chloride 500 mls @ 500 mls/hr 06/25/24 02:15 06/25/24 02:24 0.9 % Sodium Chloride 500 Ml IV 06/25/24 03:14 Not Given .Q1H ONE Calcium Gluconate/Sodium Chloride 1,000 mg in 50 mls @ 100 mls/hr 06/25/24 14:17 06/25/24 15:43 Calcium Gluc 1,000mg/50 Ml IVPB 06/25/24 14:46 Infused ONCE ONE Infusion Insulin Human Regular 10 unit 06/25/24 14:18 06/25/24 15:00 Insulin Regular, Human 100 Unit/Ml Vial IVP 06/25/24 14:19 10 unit ONCE ONE Administration Methylprednisolone Sodium Succinate 125 mg 06/25/24 01:56 06/25/24 02:05 Methylprednisolone Sod Succ 62.5 Mg/Ml (125) IVP 06/25/24 01:57 125 mg ONCE ONE Administration <Nadege Kunz MD - Last Filed: 06/25/24 15:30> Discontinued Medications Generic Name Dose Route Start Last Admin Trade Name Freq PRN Reason Stop Dose Admin Albuterol/Ipratropium 1 neb 06/25/24 01:41 06/25/24 01:45 Iprat-Albut 0.5-2.5 Mg/3 Ml Neb IH 06/25/24 01:42 1 neb ONCE ONE Administration Dextrose 25 gm 06/25/24 14:18 06/25/24 15:03 Dextrose 50 % Syringe IVP 06/25/24 14:19 25 gm ONCE ONE Administration Furosemide 40 mg 06/25/24 02:46 06/25/24 02:56 Furosemide 10 Mg/Ml Inj IVP 06/25/24 02:47 40 mg ONCE ONE Administration Piperacillin Sod/Tazobactam 100 mls @ 200 mls/hr 06/25/24 02:12 06/25/24 04:18 Sod 2.25 gm/ Sodium Chloride IVPB 06/25/24 02:13 Infused ONCE ONE Infusion Azithromycin 500 mg/ Sodium 255 mls @ 255 mls/hr 06/25/24 02:12 06/25/24 03:31 Chloride IVPB 06/25/24 02:13 Infused ONCE ONE Infusion Sodium Chloride 500 mls @ 500 mls/hr 06/25/24 02:15 06/25/24 02:24 0.9 % Sodium Chloride 500 Ml IV 06/25/24 03:14 Not Given .Q1H ONE Calcium Gluconate/Sodium Chloride 1,000 mg in 50 mls @ 100 mls/hr 06/25/24 14:17 06/25/24 15:43 Calcium Gluc 1,000mg/50 Ml IVPB 06/25/24 14:46 Infused ONCE ONE Infusion Insulin Human Regular 10 unit 06/25/24 14:18 06/25/24 15:00 Insulin Regular, Human 100 Unit/Ml Vial IVP 06/25/24 14:19 10 unit ONCE ONE Administration Methylprednisolone Sodium Succinate 125 mg 06/25/24 01:56 06/25/24 02:05 Methylprednisolone Sod Succ 62.5 Mg/Ml (125) IVP 06/25/24 01:57 125 mg ONCE ONE Administration <Austin Zhang MD - Last Filed: 06/25/24 20:34> Medical Decision Making MDM Narrative Medical decision making narrative: Patient is a 63-year-old gentleman who skipped his last 2 dialysis sessions. This was not completely clear when he 1st came in differential diagnosis included but was not limited to pneumonia CHF pulmonary embolism bronchitis COPD exacerbation. Patient eventually share that he has not attended dialysis for nearly a week. He presents with metabolic acidosis and findings on his laboratory studies consistent with chronic renal insufficiency not attending recent dialysis sessions. Patient's laboratory studies are troubling but reasonably stable. I have made attempts to get the patient to tertiary hospital where he can have dialysis. <Jean Finney MD - Last Filed: 06/25/24 06:28> Lab Data Labs: Lab Results 06/25/24 06/25/24 06/25/24 Range/Units 01:41 01:42 01:44 WBC 14.72 H (4.50-11.00) K/uL RBC 3.35 L (4.30-5.90) m/uL Hgb 10.8 L (13.5-17.5) gm/dL Hct 35.9 L (37.0-53.0) % MCV 107 H (80-100) fL MCH 32 (26-34) pg MCHC 30 L (32-36) gm/dL RDW Coeff of Martir 15.7 H (11.5-15.5) % Plt Count 312 (140-440) K/uL Neut % (Auto) 42.7 (42.0-72.0) % Lymph % (Auto) 45.0 H (20-44) % Lake % (Auto) 4.6 (0.0-11.0) % Eos % (Auto) 7.0 (0.0-7.0) % Baso % (Auto) 0.3 (0.0-3.0) % Neut # (Auto) 6.30 (1.7-7.0) K/uL Lymph # (Auto) 6.60 H (0.90-2.90) K/uL Lake # (Auto) 0.70 (0.00-0.90) K/UL Eos # (Auto) 1.00 H (0.00-0.50) K/uL Baso # (Auto) 0.00 (0.00-0.30) K/uL Abs Immat Gran (auto) 0.10 (0.00-0.30) K/uL Imm/Tot Granulo (auto) 0.4 % Diff Slide Review Acceptable Review (Acceptable) D-Dimer Quant (PE/DVT) 6.23 H (0.00-0.50) ug/ml ABG pH 7.10 L* (7.35-7.45) ABG pCO2 49 H (35-45) mmHG ABG pO2 75.1 L (80-105) mmHG ABG HCO3 20 L (21-28) mmol/L ABG Total CO2 20 L (21-30) mmol/l ABG O2 Saturation 26 L (92-100) % ABG Base Excess -11.9 L (-3.0-3.0) mmol/L Sodium 145 (135-149) mmol/L Potassium 5.6 H (3.6-5.1) mmol/L Chloride 109 (96-114) mmol/L Carbon Dioxide 15 L (20-32) mmol/L Anion Gap 21 H (7-15) mEq/L BUN 62 H (7-30) mg/dL Creatinine 7.9 H (0.5-1.5) mg/dL Estimated GFR 7 ml/min Glucose 181 H (60-115) mg/dL Lactate 3.3 H (0.5-1.9) mmol/L Calcium 8.6 (8.4-10.6) mg/dL Total Bilirubin 0.5 (0.1-1.5) mg/dL AST 18 (12-35) U/L ALT 11 (4-50) U/L Alkaline Phosphatase 168 H (40-150) U/L Troponin I 0.04 (0.01-0.04) ng/mL NT-Pro-B Natriuret Pep pg/mL Total Protein 7.2 (6.0-8.3) g/dL Albumin 4.3 (3.3-5.0) g/dL SARS-CoV-2 (PCR) Negative SARS-CoV-2 (Negative) Influenza Type A (PCR) Negative PCR FLU A (Negative) Influenza Type B (PCR) Negative PCR FLU B (Negative) RSV (PCR) Negative PCR RSV (Negative) 06/25/24 06/25/24 Range/Units 02:16 09:38 WBC 12.11 H (4.50-11.00) K/uL RBC 3.33 L (4.30-5.90) m/uL Hgb 10.7 L (13.5-17.5) gm/dL Hct 34.4 L (37.0-53.0) % MCV 103 H (80-100) fL MCH 32 (26-34) pg MCHC 31 L (32-36) gm/dL RDW Coeff of Martir 15.4 (11.5-15.5) % Plt Count 272 (140-440) K/uL Neut % (Auto) 90.5 H (42.0-72.0) % Lymph % (Auto) 6.8 L (20-44) % Lake % (Auto) 1.9 (0.0-11.0) % Eos % (Auto) 0.1 (0.0-7.0) % Baso % (Auto) 0.2 (0.0-3.0) % Neut # (Auto) 11.00 H (1.7-7.0) K/uL Lymph # (Auto) 0.80 L (0.90-2.90) K/uL Lake # (Auto) 0.20 (0.00-0.90) K/UL Eos # (Auto) 0.00 (0.00-0.50) K/uL Baso # (Auto) 0.00 (0.00-0.30) K/uL Abs Immat Gran (auto) 0.10 (0.00-0.30) K/uL Imm/Tot Granulo (auto) 0.5 % Diff Slide Review (Acceptable) D-Dimer Quant (PE/DVT) (0.00-0.50) ug/ml ABG pH (7.35-7.45) ABG pCO2 (35-45) mmHG ABG pO2 (80-105) mmHG ABG HCO3 (21-28) mmol/L ABG Total CO2 (21-30) mmol/l ABG O2 Saturation (92-100) % ABG Base Excess (-3.0-3.0) mmol/L Sodium 143 (135-149) mmol/L Potassium 6.2 H* (3.6-5.1) mmol/L Chloride 108 (96-114) mmol/L Carbon Dioxide 11 L (20-32) mmol/L Anion Gap 24 H (7-15) mEq/L BUN 66 H (7-30) mg/dL Creatinine 8.1 H (0.5-1.5) mg/dL Estimated GFR 7 ml/min Glucose 116 H (60-115) mg/dL Lactate (0.5-1.9) mmol/L Calcium 8.6 (8.4-10.6) mg/dL Total Bilirubin 0.5 (0.1-1.5) mg/dL AST 19 (12-35) U/L ALT 12 (4-50) U/L Alkaline Phosphatase 164 H (40-150) U/L Troponin I (0.01-0.04) ng/mL NT-Pro-B Natriuret Pep 34150 pg/mL Total Protein 7.7 (6.0-8.3) g/dL Albumin 4.6 (3.3-5.0) g/dL SARS-CoV-2 (PCR) (Negative) Influenza Type A (PCR) (Negative) Influenza Type B (PCR) (Negative) RSV (PCR) (Negative) <Jean Finney MD - Last Filed: 06/25/24 06:28> Lab Results 06/25/24 06/25/24 06/25/24 Range/Units 01:41 01:42 01:44 WBC 14.72 H (4.50-11.00) K/uL RBC 3.35 L (4.30-5.90) m/uL Hgb 10.8 L (13.5-17.5) gm/dL Hct 35.9 L (37.0-53.0) % MCV 107 H (80-100) fL MCH 32 (26-34) pg MCHC 30 L (32-36) gm/dL RDW Coeff of Martir 15.7 H (11.5-15.5) % Plt Count 312 (140-440) K/uL Neut % (Auto) 42.7 (42.0-72.0) % Lymph % (Auto) 45.0 H (20-44) % Lake % (Auto) 4.6 (0.0-11.0) % Eos % (Auto) 7.0 (0.0-7.0) % Baso % (Auto) 0.3 (0.0-3.0) % Neut # (Auto) 6.30 (1.7-7.0) K/uL Lymph # (Auto) 6.60 H (0.90-2.90) K/uL Lake # (Auto) 0.70 (0.00-0.90) K/UL Eos # (Auto) 1.00 H (0.00-0.50) K/uL Baso # (Auto) 0.00 (0.00-0.30) K/uL Abs Immat Gran (auto) 0.10 (0.00-0.30) K/uL Imm/Tot Granulo (auto) 0.4 % Diff Slide Review Acceptable Review (Acceptable) D-Dimer Quant (PE/DVT) 6.23 H (0.00-0.50) ug/ml ABG pH 7.10 L* (7.35-7.45) ABG pCO2 49 H (35-45) mmHG ABG pO2 75.1 L (80-105) mmHG ABG HCO3 20 L (21-28) mmol/L ABG Total CO2 20 L (21-30) mmol/l ABG O2 Saturation 26 L (92-100) % ABG Base Excess -11.9 L (-3.0-3.0) mmol/L Sodium 145 (135-149) mmol/L Potassium 5.6 H (3.6-5.1) mmol/L Chloride 109 (96-114) mmol/L Carbon Dioxide 15 L (20-32) mmol/L Anion Gap 21 H (7-15) mEq/L BUN 62 H (7-30) mg/dL Creatinine 7.9 H (0.5-1.5) mg/dL Estimated GFR 7 ml/min Glucose 181 H (60-115) mg/dL Lactate 3.3 H (0.5-1.9) mmol/L Calcium 8.6 (8.4-10.6) mg/dL Total Bilirubin 0.5 (0.1-1.5) mg/dL AST 18 (12-35) U/L ALT 11 (4-50) U/L Alkaline Phosphatase 168 H (40-150) U/L Troponin I 0.04 (0.01-0.04) ng/mL NT-Pro-B Natriuret Pep pg/mL Total Protein 7.2 (6.0-8.3) g/dL Albumin 4.3 (3.3-5.0) g/dL SARS-CoV-2 (PCR) Negative SARS-CoV-2 (Negative) Influenza Type A (PCR) Negative PCR FLU A (Negative) Influenza Type B (PCR) Negative PCR FLU B (Negative) RSV (PCR) Negative PCR RSV (Negative) 06/25/24 06/25/24 Range/Units 02:16 09:38 WBC 12.11 H (4.50-11.00) K/uL RBC 3.33 L (4.30-5.90) m/uL Hgb 10.7 L (13.5-17.5) gm/dL Hct 34.4 L (37.0-53.0) % MCV 103 H (80-100) fL MCH 32 (26-34) pg MCHC 31 L (32-36) gm/dL RDW Coeff of Martir 15.4 (11.5-15.5) % Plt Count 272 (140-440) K/uL Neut % (Auto) 90.5 H (42.0-72.0) % Lymph % (Auto) 6.8 L (20-44) % Lake % (Auto) 1.9 (0.0-11.0) % Eos % (Auto) 0.1 (0.0-7.0) % Baso % (Auto) 0.2 (0.0-3.0) % Neut # (Auto) 11.00 H (1.7-7.0) K/uL Lymph # (Auto) 0.80 L (0.90-2.90) K/uL Lake # (Auto) 0.20 (0.00-0.90) K/UL Eos # (Auto) 0.00 (0.00-0.50) K/uL Baso # (Auto) 0.00 (0.00-0.30) K/uL Abs Immat Gran (auto) 0.10 (0.00-0.30) K/uL Imm/Tot Granulo (auto) 0.5 % Diff Slide Review (Acceptable) D-Dimer Quant (PE/DVT) (0.00-0.50) ug/ml ABG pH (7.35-7.45) ABG pCO2 (35-45) mmHG ABG pO2 (80-105) mmHG ABG HCO3 (21-28) mmol/L ABG Total CO2 (21-30) mmol/l ABG O2 Saturation (92-100) % ABG Base Excess (-3.0-3.0) mmol/L Sodium 143 (135-149) mmol/L Potassium 6.2 H* (3.6-5.1) mmol/L Chloride 108 (96-114) mmol/L Carbon Dioxide 11 L (20-32) mmol/L Anion Gap 24 H (7-15) mEq/L BUN 66 H (7-30) mg/dL Creatinine 8.1 H (0.5-1.5) mg/dL Estimated GFR 7 ml/min Glucose 116 H (60-115) mg/dL Lactate (0.5-1.9) mmol/L Calcium 8.6 (8.4-10.6) mg/dL Total Bilirubin 0.5 (0.1-1.5) mg/dL AST 19 (12-35) U/L ALT 12 (4-50) U/L Alkaline Phosphatase 164 H (40-150) U/L Troponin I (0.01-0.04) ng/mL NT-Pro-B Natriuret Pep 70172 pg/mL Total Protein 7.7 (6.0-8.3) g/dL Albumin 4.6 (3.3-5.0) g/dL SARS-CoV-2 (PCR) (Negative) Influenza Type A (PCR) (Negative) Influenza Type B (PCR) (Negative) RSV (PCR) (Negative) <Nadege Kunz MD - Last Filed: 06/25/24 15:30> Lab Results 06/25/24 06/25/24 06/25/24 Range/Units 01:41 01:42 01:44 WBC 14.72 H (4.50-11.00) K/uL RBC 3.35 L (4.30-5.90) m/uL Hgb 10.8 L (13.5-17.5) gm/dL Hct 35.9 L (37.0-53.0) % MCV 107 H (80-100) fL MCH 32 (26-34) pg MCHC 30 L (32-36) gm/dL RDW Coeff of Martir 15.7 H (11.5-15.5) % Plt Count 312 (140-440) K/uL Neut % (Auto) 42.7 (42.0-72.0) % Lymph % (Auto) 45.0 H (20-44) % Lake % (Auto) 4.6 (0.0-11.0) % Eos % (Auto) 7.0 (0.0-7.0) % Baso % (Auto) 0.3 (0.0-3.0) % Neut # (Auto) 6.30 (1.7-7.0) K/uL Lymph # (Auto) 6.60 H (0.90-2.90) K/uL Lake # (Auto) 0.70 (0.00-0.90) K/UL Eos # (Auto) 1.00 H (0.00-0.50) K/uL Baso # (Auto) 0.00 (0.00-0.30) K/uL Abs Immat Gran (auto) 0.10 (0.00-0.30) K/uL Imm/Tot Granulo (auto) 0.4 % Diff Slide Review Acceptable Review (Acceptable) D-Dimer Quant (PE/DVT) 6.23 H (0.00-0.50) ug/ml ABG pH 7.10 L* (7.35-7.45) ABG pCO2 49 H (35-45) mmHG ABG pO2 75.1 L (80-105) mmHG ABG HCO3 20 L (21-28) mmol/L ABG Total CO2 20 L (21-30) mmol/l ABG O2 Saturation 26 L (92-100) % ABG Base Excess -11.9 L (-3.0-3.0) mmol/L Sodium 145 (135-149) mmol/L Potassium 5.6 H (3.6-5.1) mmol/L Chloride 109 (96-114) mmol/L Carbon Dioxide 15 L (20-32) mmol/L Anion Gap 21 H (7-15) mEq/L BUN 62 H (7-30) mg/dL Creatinine 7.9 H (0.5-1.5) mg/dL Estimated GFR 7 ml/min Glucose 181 H (60-115) mg/dL Lactate 3.3 H (0.5-1.9) mmol/L Calcium 8.6 (8.4-10.6) mg/dL Total Bilirubin 0.5 (0.1-1.5) mg/dL AST 18 (12-35) U/L ALT 11 (4-50) U/L Alkaline Phosphatase 168 H (40-150) U/L Troponin I 0.04 (0.01-0.04) ng/mL NT-Pro-B Natriuret Pep pg/mL Total Protein 7.2 (6.0-8.3) g/dL Albumin 4.3 (3.3-5.0) g/dL SARS-CoV-2 (PCR) Negative SARS-CoV-2 (Negative) Influenza Type A (PCR) Negative PCR FLU A (Negative) Influenza Type B (PCR) Negative PCR FLU B (Negative) RSV (PCR) Negative PCR RSV (Negative) 06/25/24 06/25/24 Range/Units 02:16 09:38 WBC 12.11 H (4.50-11.00) K/uL RBC 3.33 L (4.30-5.90) m/uL Hgb 10.7 L (13.5-17.5) gm/dL Hct 34.4 L (37.0-53.0) % MCV 103 H (80-100) fL MCH 32 (26-34) pg MCHC 31 L (32-36) gm/dL RDW Coeff of Martir 15.4 (11.5-15.5) % Plt Count 272 (140-440) K/uL Neut % (Auto) 90.5 H (42.0-72.0) % Lymph % (Auto) 6.8 L (20-44) % Lake % (Auto) 1.9 (0.0-11.0) % Eos % (Auto) 0.1 (0.0-7.0) % Baso % (Auto) 0.2 (0.0-3.0) % Neut # (Auto) 11.00 H (1.7-7.0) K/uL Lymph # (Auto) 0.80 L (0.90-2.90) K/uL Lake # (Auto) 0.20 (0.00-0.90) K/UL Eos # (Auto) 0.00 (0.00-0.50) K/uL Baso # (Auto) 0.00 (0.00-0.30) K/uL Abs Immat Gran (auto) 0.10 (0.00-0.30) K/uL Imm/Tot Granulo (auto) 0.5 % Diff Slide Review (Acceptable) D-Dimer Quant (PE/DVT) (0.00-0.50) ug/ml ABG pH (7.35-7.45) ABG pCO2 (35-45) mmHG ABG pO2 (80-105) mmHG ABG HCO3 (21-28) mmol/L ABG Total CO2 (21-30) mmol/l ABG O2 Saturation (92-100) % ABG Base Excess (-3.0-3.0) mmol/L Sodium 143 (135-149) mmol/L Potassium 6.2 H* (3.6-5.1) mmol/L Chloride 108 (96-114) mmol/L Carbon Dioxide 11 L (20-32) mmol/L Anion Gap 24 H (7-15) mEq/L BUN 66 H (7-30) mg/dL Creatinine 8.1 H (0.5-1.5) mg/dL Estimated GFR 7 ml/min Glucose 116 H (60-115) mg/dL Lactate (0.5-1.9) mmol/L Calcium 8.6 (8.4-10.6) mg/dL Total Bilirubin 0.5 (0.1-1.5) mg/dL AST 19 (12-35) U/L ALT 12 (4-50) U/L Alkaline Phosphatase 164 H (40-150) U/L Troponin I (0.01-0.04) ng/mL NT-Pro-B Natriuret Pep 01480 pg/mL Total Protein 7.7 (6.0-8.3) g/dL Albumin 4.6 (3.3-5.0) g/dL SARS-CoV-2 (PCR) (Negative) Influenza Type A (PCR) (Negative) Influenza Type B (PCR) (Negative) RSV (PCR) (Negative) <Austin Zhang MD - Last Filed: 06/25/24 20:34> Imaging Data Chest x-ray: Attestation: I have reviewed the pertinent imaging results. <Nadege Kunz MD - Last Filed: 06/25/24 15:30> Radiologist's impression: Indication: Shortness of breath Technique: Single view of the chest Comparison: Chest radiograph performed 05/17/2024 Findings/Impression: 1. Cardiomegaly and prominent vascular markings suspicious for heart failure and high volume status, though similar in appearance to prior examinations. 2. Unchanged opacity in the right mid to lower lung. Clinical significance is uncertain, as this was present on 05/17/2024 study but not present on 04/25/[address] <Nadege Kunz MD - Last Filed: 06/25/24 15:30> CT scan - chest: Attestation: I have reviewed the pertinent imaging results. <Nadege Kunz MD - Last Filed: 06/25/24 15:30> Radiologist's impression: TECHNIQUE: Multiplanar CT examination of the chest was performed without the use of intravenous contrast. COMPARISON: Chest radiograph 06/25/2024. FINDINGS: Lines/devices: Right IJ central venous catheter with tip terminating in lower SVC. Lower neck: The visualized thyroid is unremarkable. Cardiovascular: Heart size is enlarged. Thoracic aorta and pulmonary artery are normal in caliber. Severe atherosclerotic calcifications of the aortic arch. Dense coronary arterial calcifications. Mediastinum and lymph nodes: Enlarged mediastinal lymph nodes, the largest is a pretracheal lymph node measuring 1.7 cm in short axis. Lungs: Abnormal masslike consolidation in the right lower lobe measuring 7.4 x 4.4 cm, with spiculated margins. Pulmonary emphysema. Diffuse interlobular septal thickening may be related to mild pulmonary edema. Airways: The trachea remains patent and midline. Small amount of aspirated debris within the abiodun. Mild diffuse peribronchial wall thickening. Pleura: Small right greater than left pleural effusion. No pneumothorax. Chest wall: Unremarkable. Bones: No acute osseous abnormalities. Old healed bilateral rib fractures. Multilevel degenerative changes of the visualized thoracolumbar spine. No suspicious lytic or blastic lesions. Upper abdomen: Cholecystectomy. No acute findings in the visualized upper abdomen. IMPRESSION: 1. Persistent large abnormal right lower lobe masslike consolidation delete that with suspected pathologic mediastinal lymphadenopathy. Malignant malignancy should be excluded. Further evaluation is recommended with PET-CT or histologic tissue analysis. 2. Small bilateral pleural effusions. Malignant effusions are not excluded. <Nadege Kunz MD - Last Filed: 06/25/24 15:30> Discharge Plan Discharge Clinical Impression: End stage renal disease, Heart failure, Acute dyspnea, Lung mass, Fluid overload <Jean Finney MD - Last Filed: 06/25/24 06:28> Patient Disposition: Xfer Other <Jean Finney MD - Last Filed: 06/25/24 06:28> Discharge Location: [facility] <Jean Finney MD - Last Filed: 06/25/24 06:28> Condition: Stable <Jean Finney MD - Last Filed: 06/25/24 06:28> Additional Instructions: New lung mass identified on chest CT. We will need further imaging or biopsy. <Jean Finney MD - Last Filed: 06/25/24 06:28> Activity Level: Other <Jean Finney MD - Last Filed: 06/25/24 06:28> Other <Nadege Kunz MD - Last Filed: 06/25/24 15:30> Other <Austin Zhang MD - Last Filed: 06/25/24 20:34> Discharge Diet: Other <Jean Finney MD - Last Filed: 06/25/24 06:28> Other <Nadege Kunz MD - Last Filed: 06/25/24 15:30> Other <Austin Zhang MD - Last Filed: 06/25/24 20:34> Prescriptions: No Action carvedilol 12.5 mg tablet 6.25 mg PO BID atorvastatin 40 mg tablet 40 mg PO QPM aspirin 81 mg tablet,chewable 1 tab PO DAILY multivitamin with folic acid [Daily-Ernestina (with folic acid)] 400 mcg tablet 1 tab PO DAILY bumetanide 2 mg tablet 2 mg PO DAILY <Jean Finney MD - Last Filed: 06/25/24 06:28> Stand Alone Forms: [facility] Info Instructions <Jean Finney MD - Last Filed: 06/25/24 06:28>
[2024-06-25] MEDS: IPRAT-ALBUT 0.5-2.5 MG/3 ML NEB 1 NEB IH (01:45)
--- OUTSIDE RECORDS SUMMARY | 2024-06-25 01:57 | XMS_ITS | CONTINUITY OF CARE DOCUMENT ---
Author Name User, QIE Address [address] [place] [address] Organization [facility] [address] [place] [address] Phone [phone] Care Team Providers Care Band Salvager Name Role Phone User, QIE Unavailable Unavailable PROBLEMS Condition Status Date Provider Notes Organizati on CKD STAGE ESRD ON DIALYSIS GFR <[address] [facility] [address] [facility] ALLERGIES Allergy Name Onset Date Reaction Criticality Status Provider Or ganization RANITIDINE High Criticality active R masoud [address] [facility] [address] [facility] HISTORY OF MEDICATION USE Medication Instructions Status Dates Provider Indications Com ments Organization TAB-A-KENJI TABS TAKE 1 TABLET BY MOUTH ONCE DAILY. active Trisha [address] 2 [facility] [address] [facility] sodium bicarbonate 650 mg tablet TAKE 2 TABLETS BY MOUTH IN THE MORNING, 2 TABLETS IN THE EVENING AND 2 TABLETS AT BEDTIME. completed - 06/[address] [facility] [address] [facility] atorvastatin 40 mg tablet TAKE 1 TABLET (40 MG) BY MOUTH AT BEDTIME. active Trisha[address] [facility] [address] [facility] furosemide 40 mg tablet 1 once a day active Trisha [address] 2 [facility] [address] [facility] Adult Low Dose Aspirin 81 mg tablet,delaye d release 1 once a day active [address]isha[address] [address] [facility] SOCIAL HISTORY Date Observation Value Provider Organization personal history of marijuana use yes Trisha Moy[address] [facility] [address] [facility] social history E&M Patient willy pedersen smokes every day.; Marijuana Use: Y; [facility] [address] [place] [address] [address] [facility] [address] [facility] social history reviewed E&M reviewed - no changes required Trisha Moy[address] [facility] [address] [facility] smoking status Current every da y smoker Trisha Moy[address] [facility] [address] [facility] FAMILY HISTORY Family Member Condition Mother Unknown INSURANCE PROVIDERS Payer name Policy type / Coverage type [place] red republican ID [employer] INDIV & FAMILY & FV (GRP IFB) [id number] TREATMENT PLAN Date Name Provider Vein Mapping Kaitlyn Aguilar DMS, RVT RDMS, RVT, [address] [facility] [address] [facility] [address] HISTORY OF PROCEDURES Procedure Date Procedure Name Provider Procedure Notes Stat us Organization SNOMED-CT:PATIEN T ENCOUNTER Lit Miller MD, MD, [address] [facility] [address] completed [facility]
--- OUTSIDE RECORDS SUMMARY | 2024-06-25 01:57 | XMS_ITS | Encounter Summary ---
Author Organization [facility] Address [address] [place] [address] Care Team Providers Care Water Treatment Specialist Name Role Phone Shelia Dietrich DO Primary Care Provider [phone] Encounter Details Date Type Department Care Team (Late st Contact Info) Description 11/07/2023 Orders Only [facility] [address] [place] [address] Good Briceno MD [address] [place] [phone] Stage 5 chronic kidney disease (HCC) Social History Tobacco Use Types Packs/Day Years Used Date Smoking Tobacco: Every Day Cigarettes Started: 1968 Smokeless Tobacco: Never Alcohol Use Standard Drinks/Week Comments Not Currently 0 (1 standard drink = 0.6 oz pure alcohol) alcohol use disorder noted in [facility] Sex and Gender Information Value Date Recorded Sex Assigned at Not on file Legal Sex Male 11:26 AM EST Gender Identity Not on file Sexual Orientation Not on file documented as of this encounter Plan of Treatment Not on file documented as of this encounter Visit Diagnoses Diagnosis Stage 5 chronic kidney disease (HCC) documented in this encounter Care Teams Water Treatment Specialist Relationship Specialty Start Date End Date Shelia Dietrich DO [address] [place] [address] PCP - General Family Medicine 06/19/23 documented as of this encounter
--- OUTSIDE RECORDS SUMMARY | 2024-06-25 01:57 | XMS_ITS | Continuity of Care Document ---
Author Organization [facility] Address [address] [address] [place] [address] Phone Care Team Providers Care Site Acquisition Manager Name Role Phone Naveed Cole MD, Osmani Unavailable Unavailabl e Advance Directives Directive Yes / No Effective Date File Name No Information Encounters Encounter Description Practice Location Reason(s) For Visit Diagnoses Date Provider Providers Copied on Encounter [facility], [address] [address], [place], [place], [id number], tel:[phone] [facility] No Information Naveed Keen. [address], [id number], [place]. tel:[phone] [facility], [address] [address], [place], [place], [id number], [place] tel:[phone] [facility] Pancreas cyst Selam Rashid. [address], [id number], [place]. tel:[phone] [facility], [address] [address], [place], [place], [id number], [place] tel:[phone] [facility] No Information Sobia Alvarez. [address], [id number], [place]. tel:[phone] Family History Family Member Type Diagnosis Age [...] directional interface ; Source: Other Registry Novel [id number], all formulations administered Note: [facility] bi-direct ional [...] Registry Payers Payer name Insurance type Covered constitution party ID Authoriza tion(s) No Information Social [...]
--- OUTSIDE RECORDS SUMMARY | 2024-06-25 01:57 | XMS_ITS | Encounter Summary ---
Author Organization [facility] Address [address] [place] [address] Care Team Providers Care Railway Switchman Name Role Phone Shelia Dietrich DO Primary Care Provider [phone] Encounter Details Date Type Department Care Team (Late st Contact Info) Description 12/18/2023 Orders Only [facility] [address] [place] [address] Good Briceno MD [address] [place] [address] Stage 5 chronic kidney disease (HCC) Social History Tobacco Use Types Packs/Day Years Used Date Smoking Tobacco: Every Day Cigarettes Started: 1968 Smokeless Tobacco: Never Alcohol Use Standard Drinks/Week Comments Not Currently 0 (1 standard drink = 0.6 oz pure alcohol) alcohol use disorder noted in [facility] Sex and Gender Information Value Date Recorded Sex Assigned at Not on file Legal Sex Male 11:26 AM EST Gender Identity Not on file Sexual Orientation Not on file documented as of this encounter Plan of Treatment Not on file documented as of this encounter Visit Diagnoses Diagnosis Stage 5 chronic kidney disease (HCC) documented in this encounter Care Teams Railway Switchman Relationship Specialty Start Date End Date Shelia Dietrich DO [address] [place] [address] PCP - General Family Medicine 06/19/23 documented as of this encounter
--- OUTSIDE RECORDS SUMMARY | 2024-06-25 01:57 | XMS_ITS | Clinical Summary ---
Author Organization [facility] Address [address] [facility] [place] [address] Phone Care Team Providers Care Car Hostler Name Role Phone Shelia Dietrich DO Primary Care Provider [phone] Allergies Active Allergy Reactions Criticality Noted Date Comments Ranitidine Itching,Other (see comments) High 019 Blisters Medications furosemide (LASIX) 40 MG tablet Take 40 mg by mouth in the morning. 06/18/2023 Active aspirin 81 MG chewable tablet Chew 81 mg in the morning. 06/18/2023 Active atorvastatin (LIPITOR) 40 MG tablet Take 40 mg by mouth every night 06/18/2023 Active carvedilol (COREG) 25 MG tablet Take 25 mg by mouth in the morning and 25 mg in the evening. Take with meals. 06/18/2023 Active Multiple Vitamin (Tab-A-Ernestina) tablet Take 1 tablet by mouth 1 (one) time each day 09/05/2023 Active Active Problems Problem Noted Date Diagnosed Date Hyperkalemia 09/18/2023 Anemia in chronic kidney disease 09/18/2023 Chronic obstructive pulmonary disease 06/26/2023 Heart failure with reduced ejection fraction 05/2023 Right heart failure 06/26/2023 Coronary arteriosclerosis 06/26/2023 Hyperphosphatemia 06/26/2023 Metabolic acidosis 06/26/2023 Pulmonary hypertension 06/26/2023 Alcoholism 06/18/2023 Chronic kidney disease stage 5 due to hypertensi on 05/24/2023 Hypertensive chronic kidney disease stage 5 04/27 Acute nontraumatic kidney injury 05/24/2023 Tobacco use 05/24/2023 Chronic systolic heart failure 03/14/2023 Social History Tobacco Use Types Packs/Day Years Used Date Smoking Tobacco: Every Day Cigarettes Started: 1968 Smokeless Tobacco: Never Tobacco Cessation:Ready to Q uit: Not Asked; Counseling Given: Not Answered Alcohol Use Standard Drinks/Week Comments Not Currently 0 (1 standard drink = 0.6 oz pure alcohol) alcohol use disorder noted in [facility] Sex and Gender Information Value Date Recorded Sex Assigned at Not on file Legal Sex Male 11:26 AM EST Gender Identity Not on file Sexual Orientation Not on file Last Filed Vital Signs Vital Sign Reading Time Taken Comments Blood Pressure 88/62 09/18/2023 11:11 AM CDT Pulse 62 09/18/2023 11:11 AM CDT Temperature - - Respiratory Rate - - Oxygen Saturation 99% 09/18/2023 11:11 AM CDT Inhaled Oxygen Concentration - - Weight 52.7 kg (116 lb 3.2 oz) 09/18/2023 11:11 AM CDT Height 172.7 cm (5' 8) 09/18/2023 11:11 AM CDT Body Mass Index 17.67 09/18/2023 11:11 AM CDT Plan of Treatment Health Maintenance Due Date Last Done Comments Pneumococcal Vaccine: Pediat rics (0 to 5 Years) and At-Risk Patients (6 to 64 Years) (1 of 2 - PCV) 1966 Colorectal Cancer Screening: Annual FOBT 2009 Colorectal Cancer Screening: Colonoscopy 2009 Colorectal Cancer Screening: Sigmoidoscopy 2009 Influenza Vaccine (#1) 2024 Hepatitis B Vaccine Aged Out No longe r eligible based on patient's age to complete this topic [place] [address] Care Teams Car Hostler Relationship Specialty Start Date End Date Shelia Dietrich DO Clayton Marquez [address] [place] [address] PCP - General Family Medicine 06/19/23
--- OUTSIDE RECORDS SUMMARY | 2024-06-25 01:58 | XMS_ITS | Encounter Summary ---
Author Organization [facility] Address [address] [facility] [address] [place] [address] Care Team Providers Care Police Captain Name Role Phone Shelia Dietrich DO Primary Care Provider [phone] Encounter Details Date Type Department Care Team (Late st Contact Info) Description 10/10/2023 Orders Only [facility] [address] [place] [address] Good Briceno MD [address] [place] [address] Stage 5 chronic kidney disease (HCC) Social History Tobacco Use Types Packs/Day Years Used Date Smoking Tobacco: Every Day Cigarettes Started: 1968 Smokeless Tobacco: Never Alcohol Use Standard Drinks/Week Comments Not Currently 0 (1 standard drink = 0.6 oz pure alcohol) alcohol use disorder noted in [facility] Sex and Gender Information Value Date Recorded Sex Assigned at Not on file Legal Sex Male 11:26 AM EST Gender Identity Not on file Sexual Orientation Not on file documented as of this encounter Plan of Treatment Not on file documented as of this encounter Procedures Procedure Name Priority Date/Time Associated Diagnosis Comments BASIC METABOLIC PANEL Routine 10/21/2023 Stage 5 chronic kidney disease (HCC) documented in this encounter Results * (ABNORMAL) Basic metabolic panel (10/21/2023) Sodium 135(L) mEq/L [facility] Potassium 4.8 mEq/L [facility] Chloride 104 [facility] Carbon Dioxide 14(L) mmol/L [facility] Calcium 9.3 mg/dL [facility] BUN 78(H) mg/dL [facility] Creatinine 3.68(H) mg/dL [facility] Glucose 99 mg/dL [facility] eGFR 18(L) [facility] Anion Gap 17 [facility] Blood (Blood, Venous) 10/21/2023 us Good Briceno MD LAB BLOOD ORDERABLES Final Re sult [facility] documented in this encounter Visit Diagnoses Diagnosis Stage 5 chronic kidney disease (HCC) documented in this encounter Care Teams Police Captain Relationship Specialty Start Date End Date Shelia Dietrich DO [address] [place] [address] PCP - General Family Medicine 06/19/23 documented as of this encounter
[2024-06-25 02:00] LABS: Lactate* 3.3 mmol/L (0.5-1.9)
[2024-06-25 02:02] LABS: Basophils Percent Auto 0.3 % (0.0-3.0); Hematocrit 35.9 % (37.0-53.0); Hemoglobin* 10.8 gm/dL (13.5-17.5); Immature Granulocytes Pct Auto 0.4 %; Mean Corpuscular HGB Conc 30 gm/dL (32-36); Mean Corpuscular Hemoglobin 32 pg (26-34); Mean Corpuscular Volume 107 fL (80-100); Monocytes Percent Auto 4.6 % (0.0-11.0); Neutrophils Percent Auto 42.7 % (42.0-72.0); Platelet Count* 312 K/uL (140-440); RDW Coefficient of Variation % 15.7 % (11.5-15.5); Red Blood Count 3.35 m/uL (4.30-5.90); White Blood Count* 14.72 K/uL (4.50-11.00)
[2024-06-25] MEDS: METHYLPREDNISOLONE SOD SUCC 62.5 MG/ML (125) 125 MG IVP (02:05)
[2024-06-25 02:18] LABS: Base Excess ABG -11.9 mmol/L (-3.0-3.0); HCO3 ABG 20 mmol/L (21-28); Oxygen Saturation ABG 26 % (92-100); TCO2 ABG 20 mmol/l (21-30)
[2024-06-25 02:19] LABS: Slide Review Reflex Yes
[2024-06-25] MEDS: AZITHROMYCIN 500 MG in 0.9 % SODIUM CHLORIDE 250 ml 250 ML 255 MG IVPB (02:22)
[2024-06-25 02:24] LABS: ABG PCO2 49 mmHG (35-45); Albumin* 4.3 g/dL (3.3-5.0); Chloride* 109 mmol/L (96-114); PO2 ABG 75.1 mmHG (80-105); Sodium* 145 mmol/L (135-149)
[2024-06-25 02:25] LABS: Potassium* 5.6 mmol/L (3.6-5.1)
[2024-06-25 02:27] LABS: Alanine Aminotransferase* 11 U/L (4-50); Alkaline Phosphatase* 168 U/L (40-150); Anion Gap 21 mEq/L (7-15); Aspartate Amino Transferase* 18 U/L (12-35); Bilirubin Total* 0.5 mg/dL (0.1-1.5); Blood Urea Nitrogen* 62 mg/dL (7-30); Carbon Dioxide* 15 mmol/L (20-32); Creatinine* 7.9 mg/dL (0.5-1.5); Estimated Glomerular Filt Rate 7 ml/min; Glucose* 181 mg/dL (60-115); Slide Review Acceptable Review (Acceptable); Total Protein* 7.2 g/dL (6.0-8.3)
[2024-06-25 02:28] LABS: Calcium* 8.6 mg/dL (8.4-10.6)
[2024-06-25 02:36] LABS: D Dimer Quantitative* 6.23 ug/ml (0.00-0.50)
[2024-06-25 02:38] LABS: PCR FLU A Negative PCR FLU A (Negative); PCR FLU B Negative PCR FLU B (Negative); PCR RSV Negative PCR RSV (Negative); SARS PCR* Negative SARS-CoV-2 (Negative)
[2024-06-25 02:40] LABS: Troponin I* 0.04 ng/mL (0.01-0.04)
[2024-06-25] MEDS: FUROSEMIDE 10 MG/ML inj 40 MG IVP (02:56)
[2024-06-25 02:59] LABS: NT Pro B Type NatriureticPept* 41000 pg/mL
[2024-06-25] MEDS: PIPERACILLIN/TAZOBACTAM 2.25 GM in 0.9 % SODIUM CHLORIDE Mini-bag 100 ML IVPB (03:27)
[2024-06-25 09:51] LABS: Basophils Percent Auto 0.2 % (0.0-3.0); Eosinophils Percent Auto 0.1 % (0.0-7.0); Hematocrit 34.4 % (37.0-53.0); Hemoglobin* 10.7 gm/dL (13.5-17.5); Immature Granulocytes Pct Auto 0.5 %; Lymphocytes Percent Auto 6.8 % (20-44); Mean Corpuscular HGB Conc 31 gm/dL (32-36); Mean Corpuscular Hemoglobin 32 pg (26-34); Mean Corpuscular Volume 103 fL (80-100); Monocytes Percent Auto 1.9 % (0.0-11.0); Neutrophils Percent Auto 90.5 % (42.0-72.0); Platelet Count* 272 K/uL (140-440); RDW Coefficient of Variation % 15.4 % (11.5-15.5); Red Blood Count 3.33 m/uL (4.30-5.90); White Blood Count* 12.11 K/uL (4.50-11.00)
[2024-06-25 09:54] LABS: Slide Review Reflex No
[2024-06-25 10:07] LABS: Albumin* 4.6 g/dL (3.3-5.0); Chloride* 108 mmol/L (96-114)
[2024-06-25 10:08] LABS: Sodium* 143 mmol/L (135-149)
[2024-06-25 10:10] LABS: Creatinine* 8.1 mg/dL (0.5-1.5); Estimated Glomerular Filt Rate 7 ml/min
[2024-06-25 10:11] LABS: Alanine Aminotransferase* 12 U/L (4-50); Alkaline Phosphatase* 164 U/L (40-150); Anion Gap 24 mEq/L (7-15); Aspartate Amino Transferase* 19 U/L (12-35); Bilirubin Total* 0.5 mg/dL (0.1-1.5); Blood Urea Nitrogen* 66 mg/dL (7-30); Calcium* 8.6 mg/dL (8.4-10.6); Carbon Dioxide* 11 mmol/L (20-32); Glucose* 116 mg/dL (60-115); Total Protein* 7.7 g/dL (6.0-8.3)
[2024-06-25 10:16] LABS: Potassium* 6.2 mmol/L (3.6-5.1)
[2024-06-25] MEDS: INSULIN REGULAR, HUMAN 100 UNIT/ML VIAL 10 UNIT IVP (15:00)
[2024-06-25] MEDS: DEXTROSE 50 % SYRINGE IVP (15:03)
[2024-06-25] MEDS: CALCIUM GLUC 1,000MG/50 ML 1,000 MG/50 ML BAG 100 MG IVPB (15:15)
== END 2024-06-25 18:48 | disposition other institution (70) ==
PROVIDERS: Internal Medicine; Emergency Provider Emergency Medicine
DX: N18.6 End stage renal disease (principal); I50.9 Heart failure, unspecified; E87.70 Fluid overload, unspecified
CPT/HCPCS: 36415; 36600; 71045; 71250; 80053; 82803; 82962; 83605; 83880; 84484; 85025; 85379; 87040; 87631; 93005; 94761; 96365; 96366; 96375; 99285; J0456; J0613; J1815; J1940; J2543; J2919; J7050

== ENCOUNTER 2024-06-25 18:35 | Outpatient (CLI) | payer MEDICAID, SELFPAY | END 2024-06-25 18:36 | disposition home or self-care (01) | LOC: AMB 07-06 05:26 | PROVIDERS: Visit Provider Emergency Medicine | DX: R06.02 Shortness of breath (principal) | CPT/HCPCS: A0425; A0427 ==

== ENCOUNTER 2024-07-08 19:23 | Outpatient (CLI) | payer MEDICAID, SELFPAY | END 2024-07-08 19:24 | disposition home or self-care (01) | LOC: AMB 07-09 09:42 | PROVIDERS: Visit Provider Student in an Organized Health Care Education/Training Program | DX: R06.9 Unspecified abnormalities of breathing (principal) | CPT/HCPCS: A0425; A0427 ==

== ENCOUNTER 2024-07-08 20:14 | Emergency (ER) | payer MEDICAID, SELFPAY ==
[2024-07-08] VITALS (28 sets, daily range): BP systolic 58–174; BP diastolic 23–90; PULSE 44–91; RESP 0–46; TEMP 36.1; O2SAT 98–100
[2024-07-08] MEDS: 0.9 % SODIUM CHLORIDE 1000 ml 1,000 ML IV (20:20)
--- OUTSIDE RECORDS SUMMARY | 2024-07-08 20:22 | XMS_ITS | Clinical Summary ---
Author Organization [facility] Address [address] [facility] [place] [address] Care Team Providers Care Automation Software Engineer Name Role Phone [facility] Primary Care Provider Allergies Active Allergy Reactions [...] on file Legal Sex Male 9:52 PM MANAGER CLINICAL SERVICES Gender Identity Not on file Sexual Orientation Not on file Last Filed Vital Signs Vital Sign Reading Time Taken Comments Blood Pressure 116/67 07/31/2023 3:45 PM MANAGER CLINICAL SERVICES Pulse 49 07/31/2023 3:45 PM MANAGER CLINICAL SERVICES Temperature 36.4 C (97.5 F) 07/31/2023 3:15 PM MANAGER CLINICAL SERVICES Respiratory Rate 16 07/31/2023 3:20 PM MANAGER CLINICAL SERVICES Oxygen Saturation 95% 07/31/2023 3:45 PM MANAGER CLINICAL SERVICES Inhaled Oxygen Concentration - - Weight 54.5 kg (120 lb 3.2 oz) 07/31/2023 12:05 PM MANAGER CLINICAL SERVICES Height 172.7 cm (5' 7.99) 07/31/2023 12:[address] Body Mass Index 18.28 07/31/2023 12:05 PM MANAGER CLINICAL SERVICES Plan of Treatment Health Maintenance Due Date [...] patient's age to complete this topic Insurance [facility] Care Teams Automation Software Engineer Relationship Specialty Start Date End Date [facility], [address] [address] PCP - General 07/31/23
--- OUTSIDE RECORDS SUMMARY | 2024-07-08 20:22 | XMS_ITS | Clinical Summary ---
Author Organization [facility] Address [address] [place] [address] Care Team Providers Care Director Of Safety Name Role Phone Unavailable Primary Care Provider Unavailabl e Source Comments Patient records contain information from all sites at [facility]. For routine questions regarding patient records, call [phone] during business hours, M-F 8:00 AM - 5:00 PM Central Time. Record requests for emergency care only can be directed to [phone] at any time.[facility] Allergies Active Allergy Reactions Criticality Noted Date [...] 05/20/2025 05/20/2024, 05/19/2024, 05/18/2024, Additional history exists Pneumococcal vaccine (50+ years) (3 of 3 - PCV20 or PCV21) 05/31/2025 05/31/2020, 05/17/2008 Potassium Level 06/26/2025 06/26/2024, 04/27, 05/20/2024, Additional history exists Sodium Level 06/26/2025 06/26/2024, 04/27, 05/20/2024, Additional history exists Fasting Glucose for Diabetes Screening 05/20/2027 05/20/2024, [...] LAB BLOOD ADD-ON Final Resu lt [facility] [address] [place] [address], [facility] [address] [place] [address] * HIV-1/-2 Ag and Ab Screen, Plasma (03/14/2023 6:31 PM CDT) Pathologist [facility] HIV-1/-2 Ag and Ab Screen, P Negative Negative 03/14/2023 9:01 PM CDT [facility] Comment: Negative result does not rule out HIV infection. If exposure to HIV infection occurred <14 days ago, contact the laboratory to request addition of HIV-1/HIV-2 RNA detection, Plasma (HIP12). Blood (Blood, Venous) 03/14/2023 6:31 PM CDT 03/14/2023 8:20 PM CDT [facility] LAB MICROBIOLOGY - BLOOD OR DERABLES Final Result Performing Organization Address [facility]/ZIP Co de Phone Number [facility] [address] [place] [address] [facility] [address] [place] [address] * (ABNORMAL) HCV Ab Scrn w/Reflex to HCV PCR, Serum (03/14/2023 6:31 PM CDT) HCV Ab Screen, S Reactive(A ) Negative 03/14/2023 11:27 PM CDT [facility] Comment: Supplemental testing for HCV RNA is ordered to rule out active HCV infection. Ycovct-hk-fkjenp ratio is >=1.00 and <8.00. Blood (Blood, Venous) 03/14/2023 6:31 PM CDT 03/14/2023 8:21 PM CDT Clai B Catto P.A[facility] LAB MICROBIOLOGY - BLOOD OR DERABLES Final Result Performing Organization Address [facility]/ZIP Co de Phone Number [facility] [address] [place] [address] [facility] [address] [place] [address] from Last 3 Months or Most Recently Relevant to Health Maintenance Insurance [facility] Advance Directives For more information, please contact: [phone] * Full Code (Latest Code Status on File) Date Activated Date Inactivated Comments 03/13/2023 4:37 AM 03/19/2023 5:51 PM Question Answer Comments Full Code: Not Discussed Due to: Patient not available
--- OUTSIDE RECORDS SUMMARY | 2024-07-08 20:23 | XMS_ITS | Clinical Summary ---
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 90 Tablet 3 4 Active WalkerIndicatio ns:Foot pain, bilateral Walker with front wheels for home use. 1 Each 4 Active atorvastatin (LIPITOR) 40 mg tabletIndicatio ns:Lipid disorder Take 1 Tablet (40 mg) by mouth at bedtime. 30 Tablet 05/25/2024 4:01 PM [facility] 4 Active bumetanide (BUMEX) 2 mg tabletIndicatio ns:HFrEF (heart failure with reduced ejection fraction) (HC) Take 1 Tablet (2 mg) by mouth once daily in the morning. 30 Tablet 05/25/2024 4:01 PM [facility] 4 Active carvediloL (COREG) 6.25 mg tabletIndicatio ns:HFrEF (heart failure with reduced ejection fraction) (HC),Hypertensi on Take 1 Tablet (6.25 mg) by mouth two times daily with meals. 60 Tablet 05/25/2024 4:01 PM [facility] 4 Active multivitamin with folic acid 0.4 mg (Daily-Ernestina, with folic acid,) Take 1 Tablet by mouth once daily. Active amoxicillin-cla vulanate (AUGMENTIN) 500-125 mg tabletIndicatio ns:lower respiratory infection Take 1 Tablet by mouth once daily with a meal. 5 Tablet 05/25/2024 4:01 PM [facility] 06/26/19 25 Discontinued( Pharmacist change per medication history (E-cancel not sent)) Active Problems Problem Noted Date Diagnosed Date [...] 05/06/2024 Acute hypoxic respiratory failure 04/26/2024 05/27/2024 NATALYA (acute kidney injury) 05/24/2023 Acute respiratory failure with hypoxia 05/19/2023 07/28/2023 Encounters Date Type Department Care Team Description 06/28/2024 Patient Outreach [facility] [address] [place] [address] Adrianna Collins, RN Student Primary RN Care Management (Lace score 60); Hospital F/U 06/25/2024 7:36 PM [facility] [employer] - 06/26/2024 11:45 AM [facility] [employer] Hospital Encounter [address] [place] [address] [facility], [facility] Hospitalist Goldy Martinez, MD Francis Zuñiga Saadia Zafar, MD Discharge Disposition: Home Self Care 05/28/2024 Telephone [facility] [address] [place] [address] Shelia Dietrich, Results 05/27/2024 11:15 AM [facility] [employer] Office Visit [facility] [address] [place] [address] Shelia Dietrich DO Hospital F/U (Has had several hospitalizations for heart failure and ESRD; most recently discharged on 05/26/24) 05/27/2024 Telephone [facility] [address] [place] [address] Ami Smith, RN Appointment (Arrange transportation with [facility]) 05/27/2024 Travel 05/27/2024 Patient Outreach [facility] [address] [place] [address] Deidra Bradley, JOSE LUIS Hospital F/U; Primary RN Care Management (LACE 80) 05/17/2024 3:04 PM [facility] - 05/26/2024 4:30 PM [facility] [employer] [employer] Hospital Encounter [facility] [address] [place] [address] Jaden Aguilar MBBS Wirt, Jena Nicole, DO Bratko, Kathryn Ann, MD Pogemiller, Charles Edward, MD [place], [facility] Hospitalists Of Foot pain, bilateral (Primary Dx); Transportation insecurity; Other problems related to social environment; Lipid disorder; HFrEF (heart failure with reduced ejection fraction) (HC); Hypertension; Pneumonia due to infectious organism, unspecified laterality, unspecified part of lung Discharge Disposition: Home Self Care 05/17/2024 Travel 05/13/2024 Patient Outreach [facility] Care Management - Advanced Care Team [address] [place] [address] Katherine Carrera LICSW Chronic Kidney Disease (Engagement Outreach) 05/13/2024 Patient Outreach [facility] Management - Care Management Navigation/[facility] [address] [place] [address] Brii Hernandes Care Management Intake (Engagement Outreach/) 05/12/2024 Patient Outreach [facility] [address] [place] [address] Aparna Gilmore, RN Primary RN Care Management; Hospital F/U (LACE 64) 05/07/2024 Travel 05/06/2024 11:31 AM [facility] - 05/11/2024 5:41 PM [facility] [employer] Hospital Encounter [address] [address] [facility], [facility] Hospitalist Arun Jurado MD Van Vranken, Benjamin Eugene, MBBS Maki, Mackenzie, MD ESRD (end stage renal disease) (HC) (Primary Dx); Transportation insecurity Discharge Disposition: Against Medical Advice or Discontinued Care 05/05/2024 Telephone [facility] [address] [place] [address] Shelia Dietrich, Concerns 05/03/2024 Patient Outreach [facility] [address] [place] [address] Aparna Gilmore, RN Primary RN Care Management; Hospital F/U (LACE 73) 04/28/2024 Travel 04/26/2024 Travel 04/26/2024 Refill [facility] [address] [place] [address] Shelia Dietrich, Refill Request (Carvedilol 25mg tablet, Furosemide 40mg tablet) 04/25/2024 2:39 PM [facility] - 04/30/2024 2:37 PM [facility] [employer] Hospital Encounter [facility] [address] [place] [address] Eileen Talavera DO Intensivists, [facility] Internal Ward Duncan DO Ponugoti, Krishna Chaitanya, MBBS Gunder, Adam Lee, MD HFrEF (heart failure with reduced ejection fraction) (HC) (Primary Dx); Hypertension; Dermatitis; CKD (chronic kidney disease) stage 5, GFR less than 15 ml/min (HC) Discharge Disposition: Home Self Care 04/20/2024 Refill [facility] [address] [place] [address] Shelia Dietrich DO Refill Request (Furosemide 40mg tablet) from Last 3 Months Immunizations Name Administration Dates Next Due COVID-19 VACCINE SPIKEVAX (M ODERNA 50MCG/0.5ML) 12YO+ PFS 05/08/2024 COVID-19 vaccine (angelMD-Bio NTech 30mcg/0.3mL) 12YO+ BIVALENT PF, MDV 02/20/2022 COVID-19 vaccine (angelMD-Bio NTech 30mcg/0.3mL) PF, MDV 04/04/2021,09/11/2020,08/21/2020 Hepatitis A (Adult) 04/07/2019,05/17/2008,2006 INFLUENZA, IIV3 PF (AGE >= 6 MO) 05/08/2024 Influenza A (H1N1), Inactivated 06/06/2009 Influenza, IIV3 (Age 6-35 mos) 9,02/04/2018,03/11/2017,2008,03/11/2007 Influenza, IIV3 (Age >=3 years) 05/20/20 14,09/18/2010,02/21/2009,2007,03/01/2003 Influenza, IIV4 02/20/2022, 1,05/31/2020,2015 Pneumococcal Poly,23-Valent (Pneumovax) 05/17/2008 Pneumococcal conj 13-Valent [...] on file Legal Sex Male 4:18 PM [facility] [employer] Gender Identity Not on file Sexual Orientation Not on file Obstetrics History Last Filed Vital Signs Vital Sign Reading Time Taken Comments Blood Pressure 159/88 06/26/2024 7:29 AM [facility] [employer] Pulse 87 06/26/2024 7:36 AM [facility] [employer] Temperature 36.5 C (97.7 F) 06/26/2024 7:29 AM [facility] [employer] Respiratory Rate 18 06/26/2024 7:29 AM [facility] [employer] Oxygen Saturation 91% 06/26/2024 7:29 AM [facility] [employer] Inhaled Oxygen Concentration - - Weight 54.4 kg (120 lb) 06/25/2024 10:15 PM [facility] [employer] Height 174 cm (5' 8.5) 05/17/2024 3:00 PM [facility] [employer] Body Mass Index 17.98 05/17/2024 3:00 PM [facility] Plan of Treatment Health Maintenance Due Date [...] Procedure Name Priority Date/Time Associated Diagnosis Comments SCAN CORRESP-IMAGING 06/28/2024 3:02 PM [facility] [employer] SCAN CORRESP-EKG RESULTS 06/28/2024 2:48 PM [facility] [employer] SCAN-CARDIAC STRIP 06/26/2024 7: 56 AM [facility] [employer] HBSAG (HBS) STAT 06/26/2024 7:16 AM [facility] PLATELET COUNT Early AM 06/26/2024 7:16 AM [facility] HEMOGLOBIN Early AM 06/26/2024 7:16 AM [facility] [employer] WHITE BLOOD COUNT Early AM 06/26/2024 7:1 6 AM [facility] MAGNESIUM Early AM 06/26/2024 7:16 AM [facility] [employer] POTASSIUM Early AM 06/26/2024 7:16 AM [facility] [employer] SODIUM Early AM 06/26/2024 7:16 AM [facility] SCAN-CARDIAC STRIP 06/25/2024 8: 41 PM [facility] [employer] HEMOGLOBIN Routine 05/27/2024 12:29 PM [facility] [employer] Anemia of chronic renal failure, stage 5 (HC) BASIC METABOLIC PANEL Routine 05/27/2024 12:29 PM [facility] [employer] Anemia of chronic renal failure, stage 5 (HC) VITAMIN D 25 (DEFICIENCY) Routine 05/27/2024 12:29 PM [facility] [employer] Vitamin D deficiency POTASSIUM Early AM 05/25/2024 9:11 AM [facility] [employer] SODIUM Early AM 05/25/2024 9:11 AM [facility] WHITE BLOOD COUNT Early AM 05/25/2024 9:1 1 AM [facility] PLATELET COUNT Early AM 05/25/2024 9:11 AM [facility] HEMOGLOBIN Early AM 05/25/2024 9:11 [address] [facility] [employer] [address] CHEST WO Routine 05/24/2024 1:53 PM [facility] [employer] [employer] HBV REAL TIME PCR QUANT Today 05/20/2024 1:58 PM [facility] [employer] RENAL FUNCTION PANEL Early AM 05/20/2024 1:58 PM [facility] [employer] MAGNESIUM Early AM 05/20/2024 1:58 PM [facility] [employer] CBC W PLT NO DIFF Early AM 05/20/2024 1:5 7 PM [facility] [employer] PHOSPHORUS Early AM 05/19/2024 3:27 PM [facility] [employer] MAGNESIUM Early AM 05/19/2024 3:27 PM [facility] [employer] CBC W PLT NO DIFF Early AM 05/19/2024 3:2 7 PM [facility] BASIC METABOLIC PANEL Early AM 05/19/2024 3:27 PM [facility] [employer] GLUCOSE METER Timed 05/18/2024 11:30 PM [facility] [employer] GLUCOSE METER Timed 05/18/2024 5:52 PM [facility] [employer] HCV RT-PCR, QUANT (NON-GRAPH) Today 05/18/2024 10:30 AM [facility] SCAN CORRESP-EKG RESULTS 05/18/2024 10:24 AM [facility] SCAN CORRESP-EKG RESULTS 05/18/2024 10:24 AM [facility] SCAN CORRESP-IMAGING 05/18/2024 10:24 AM [facility] BLOOD GAS,VENOUS Early AM 05/18/2024 4:58 AM [facility] CBC W PLT NO DIFF Early AM 05/18/2024 4:5 8 AM [facility] [employer] PHOSPHORUS Early AM 05/18/2024 4:57 AM [facility] MAGNESIUM Early AM 05/18/2024 4:57 AM [facility] BASIC METABOLIC PANEL Early AM 05/18/2024 4:57 AM [facility] SCAN-CARDIAC STRIP 05/17/2024 10 :36 PM [facility] GLUCOSE METER Timed 05/17/2024 9:54 PM [facility] [employer] CBC WITH AUTO DIFFERENTIAL STAT 05/17/2024 4:42 PM [facility] [employer] CBC WITH AUTO DIFFERENTIAL STAT 05/17/2024 4:42 PM [facility] BLOOD GAS,VENOUS Today 05/17/2024 4:04 PM [facility] FERRITIN PIYUSH 05/17/2024 4:03 PM [facility] IRON PLUS IRON BINDING CAP PIYUSH 05/17/2024 4:03 PM [facility] PRO-BNP Today 05/17/2024 4:03 PM [facility] LACTATE VENOUS Timed 05/17/2024 4:03 PM [facility] PROCALCITONIN Today 05/17/2024 4:03 PM [facility] HEPATIC FUNCTION PANEL STAT 4:03 PM [facility] BASIC METABOLIC PANEL STAT 05/17/2024 4:03 PM [facility] GLUCOSE METER Timed 05/17/2024 3:34 PM [facility] SCAN CORRESP-EKG RESULTS 05/12/2024 2:40 [address] [facility] [employer] CT CHEST W Routine 05/11/2024 1:15 PM [facility] [employer] CBC WITH AUTO DIFFERENTIAL PIYUSH 05/11/2024 10:50 AM [facility] [employer] CBC WITH AUTO DIFFERENTIAL PIYUSH 05/11/2024 10:50 AM [facility] QFT MITOGEN PERFORMABLE Early AM 05/11/2024 10:50 AM [facility] [employer] QFT TB2 PERFORMABLE Early AM 05/11/2024 1 0:50 AM [facility] [employer] QFT TB1 PERFORMABLE Early AM 05/11/2024 1 0:50 AM [facility] [employer] QUANTIFERON TB GOLD PLUS Early AM 05/11/2024 10:50 AM [facility] HEMOGLOBIN Early AM 05/11/2024 10:50 AM [facility] BASIC METABOLIC PANEL Early AM 05/11/2024 10:50 AM [facility] QUANTIFERON TB GOLD PLUS Early AM 05/11/2024 10:50 AM [facility] SCAN-CARDIAC STRIP 05/10/2024 11 :50 PM [facility] SCAN-CARDIAC STRIP 05/10/2024 11 :50 PM [facility] SCAN-CARDIAC STRIP 05/10/2024 11 :50 PM [facility] SCAN-CARDIAC STRIP 05/10/2024 11 :50 PM [facility] SCAN-CARDIAC STRIP 05/10/2024 5: 10 PM [facility] [employer] SCAN-CARDIAC STRIP 05/10/2024 5: 10 PM [facility] [employer] SCAN-CARDIAC STRIP 05/10/2024 5: 10 PM [facility] [employer] SCAN-CARDIAC STRIP 05/10/2024 5: 10 PM [facility] SCAN CORRESP-IMAGING 05/10/2024 9:46 AM [facility] SCAN-CARDIAC STRIP 05/10/2024 9: 13 AM [facility] SCAN-CARDIAC STRIP 05/10/2024 9: 13 AM [facility] SCAN-CARDIAC STRIP 05/10/2024 9: 13 AM [facility] [employer] SCAN-CARDIAC STRIP 05/10/2024 9: 13 AM [facility] [employer] CBC W PLT NO DIFF Early AM 05/10/2024 7:0 2 AM [facility] BASIC METABOLIC PANEL Early AM 05/10/2024 7:02 AM [facility] SCAN-CARDIAC STRIP 05/10/2024 12 :07 AM [facility] SCAN-CARDIAC STRIP 05/10/2024 12 :07 AM [facility] SCAN-CARDIAC STRIP 05/10/2024 12 :07 AM [facility] SCAN-CARDIAC STRIP 05/10/2024 12 :07 AM [facility] SCAN-CARDIAC STRIP 05/09/2024 9: 14 PM [facility] [employer] SCAN-CARDIAC STRIP 05/09/2024 9: 14 PM [facility] [employer] SCAN-CARDIAC STRIP 05/09/2024 9: 14 PM [facility] [employer] SCAN-CARDIAC STRIP 05/09/2024 9: 14 PM [facility] [employer] SCAN-CARDIAC STRIP 05/09/2024 4: 19 PM [facility] [employer] SCAN-CARDIAC STRIP 05/09/2024 4: 19 PM [facility] [employer] SCAN-CARDIAC STRIP 05/09/2024 4: 19 PM [facility] [employer] SCAN-CARDIAC STRIP 05/09/2024 4: 19 PM [facility] SCAN-CARDIAC STRIP 05/09/2024 7: 15 AM [facility] [employer] SCAN-CARDIAC STRIP 05/09/2024 7: 15 AM [facility] [employer] SCAN-CARDIAC STRIP 05/09/2024 7: 15 AM [facility] [employer] SCAN-CARDIAC STRIP 05/09/2024 7: 15 AM [facility] [employer] SCAN-CARDIAC STRIP 05/09/2024 12 :48 AM [facility] SCAN-CARDIAC STRIP 05/09/2024 12 :48 AM [facility] SCAN-CARDIAC STRIP 05/09/2024 12 :48 AM [facility] SCAN-CARDIAC STRIP 05/09/2024 12 :48 AM [facility] SCAN-CARDIAC STRIP 05/08/2024 7: 43 PM [facility] SCAN-CARDIAC STRIP 05/08/2024 7: 43 PM [facility] SCAN-CARDIAC STRIP 05/08/2024 7: 43 PM [facility] SCAN-CARDIAC STRIP 05/08/2024 7: 43 PM [facility] SCAN-CARDIAC STRIP 05/08/2024 3: 43 PM [facility] [employer] SCAN-CARDIAC STRIP 05/08/2024 3: 43 PM [facility] SCAN-CARDIAC STRIP 05/08/2024 3: 43 PM [facility] [employer] SCAN-CARDIAC STRIP 05/08/2024 3: 43 PM [facility] [employer] SCAN-CARDIAC STRIP 05/08/2024 7: 19 AM [facility] [employer] SCAN-CARDIAC STRIP 05/08/2024 7: 19 AM [facility] [employer] SCAN-CARDIAC STRIP 05/08/2024 7: 19 AM [facility] [employer] SCAN-CARDIAC STRIP 05/08/2024 7: 19 AM [facility] SCAN-CARDIAC STRIP 05/08/2024 1: 00 AM [facility] SCAN-CARDIAC STRIP 05/08/2024 1: 00 AM [facility] SCAN-CARDIAC STRIP 05/08/2024 1: 00 AM [facility] SCAN-CARDIAC STRIP 05/08/2024 1: 00 AM [facility] SCAN-CARDIAC STRIP 05/07/2024 9: 08 PM [facility] [employer] SCAN-CARDIAC STRIP 05/07/2024 9: 08 PM [facility] [employer] SCAN-CARDIAC STRIP 05/07/2024 9: 08 PM [facility] [employer] SCAN-CARDIAC STRIP 05/07/2024 9: 08 PM [facility] [employer] SCAN-CARDIAC STRIP 05/07/2024 5: 03 PM [facility] [employer] SCAN-CARDIAC STRIP 05/07/2024 5: 03 PM [facility] [employer] SCAN-CARDIAC STRIP 05/07/2024 5: 03 PM [facility] [employer] SCAN-CARDIAC STRIP 05/07/2024 5: 03 PM [facility] XR CHEST 1 VIEW PORTABLE Routine 05/07/2024 4:49 PM [facility] [employer] SCAN-CARDIAC STRIP 05/07/2024 12 :39 PM [facility] [employer] SCAN-CARDIAC STRIP 05/07/2024 12 :39 PM [facility] [employer] SCAN-CARDIAC STRIP 05/07/2024 12 :39 PM [facility] [employer] SCAN-CARDIAC STRIP 05/07/2024 12 :39 PM [facility] ECHO TTE LIMITED WO CONTRAST W COLOR W LTD DOPPLER Routine 05/07/2024 11:27 AM [facility] [employer] SCAN-CARDIAC STRIP 05/07/2024 9: 32 AM [facility] SCAN-CARDIAC STRIP 05/07/2024 9: 32 AM [facility] SCAN-CARDIAC STRIP 05/07/2024 9: 32 AM [facility] [employer] SCAN-CARDIAC STRIP 05/07/2024 9: 32 AM [facility] PLATELET COUNT Early AM 05/07/2024 4:41 AM [facility] HEMOGLOBIN Early AM 05/07/2024 4:41 AM [facility] WHITE BLOOD COUNT Early AM 05/07/2024 4:4 1 AM [facility] MAGNESIUM Early AM 05/07/2024 4:41 AM [facility] POTASSIUM Early AM 05/07/2024 4:41 AM [facility] SODIUM Early AM 05/07/2024 4:41 AM [facility] TROPONIN T (HS) ONE TIME Timed 05/07/2024 1:36 AM [facility] SCAN-CARDIAC STRIP 05/07/2024 12 :00 AM [facility] SCAN-CARDIAC STRIP 05/07/2024 12 :00 AM [facility] SCAN-CARDIAC STRIP 05/07/2024 12 :00 AM [facility] SCAN-CARDIAC STRIP 05/07/2024 12 :00 AM [facility] MAGNESIUM Today 05/06/2024 11:07 PM [facility] BASIC METABOLIC PANEL Today 05/06/2024 11:07 PM [facility] TROPONIN T (HS) ACUTE W/2HR REFLEX STAT 05/06/2024 11:07 PM [facility] EKG 12 LEAD Routine 05/06/2024 10:20 PM [facility] SCAN-CARDIAC STRIP 05/06/2024 3: 52 PM [facility] SCAN-CARDIAC STRIP 05/06/2024 3: 52 PM [facility] SCAN-CARDIAC STRIP 05/06/2024 3: 52 PM [facility] SCAN-CARDIAC STRIP 05/06/2024 3: 52 PM [facility] LACTATE VENOUS Today 05/06/2024 3:17 PM [facility] BLOOD GAS,VENOUS Today 05/06/2024 3:17 PM [facility] SCAN-CARDIAC STRIP 05/06/2024 12 :42 PM [facility] SCAN-CARDIAC STRIP 05/06/2024 12 :42 PM [facility] SCAN-CARDIAC STRIP 05/06/2024 12 :42 PM [facility] BASIC METABOLIC PANEL Early AM 04/30/2024 5:00 AM [facility] PHOSPHORUS PIYUSH 04/29/2024 11:40 PM [facility] MAGNESIUM PIYUSH 04/29/2024 11:40 PM [facility] POTASSIUM PIYUSH 04/29/2024 11:40 PM [facility] HEMOGLOBIN Early AM 04/29/2024 5:11 AM [facility] US VEIN MAPPING UPPER EXTREMITY BILATERAL Routine 04/28/2024 9:45 PM [facility] IR CENTRAL VENOUS ACCESS/PORT Routine 04/28/2024 10:48 AM [facility] FERRITIN PIYUSH 04/28/2024 5:01 AM [facility] IRON PLUS IRON BINDING CAP PIYUSH 04/28/2024 5:01 AM [facility] BASIC METABOLIC PANEL PIYUSH 04/28/2024 5:01 AM [facility] HCV RT-PCR, QUANT (NON-GRAPH) Timed 04/28/2024 5:01 AM [facility] ANTI HBS QUANT AHS Early AM 04/28/2024 5: 01 AM [facility] ANTI HBC Early AM 04/28/2024 5:01 AM [facility] ANTI HCV Early AM 04/28/2024 5:01 AM [facility] SCAN-OPERATIVE/PROCEDU RE REPORT 04/28/2024 12:00 AM [facility] HBSAG (HBS) PIYUSH 04/27/2024 2:04 PM [facility] PROTIME-INR Today 04/27/2024 2:04 PM [facility] VITAMIN D 25 (DEFICIENCY) Today 04/27/2024 2:04 PM [facility] CALCIUM IONIZED HOSPITAL DRAW ONLY Today 04/27/2024 2:04 PM [facility] CK TOTAL Today 04/27/2024 2:04 PM [facility] PTH,INTACT Today 04/27/2024 2:04 PM [facility] PRO-BNP Today 04/27/2024 2:04 PM [facility] RENAL FUNCTION PANEL Today 04/27/2024 2:04 PM [facility] CBC W PLT NO DIFF Today 04/27/2024 2:0 4 PM [facility] GLUCOSE METER Timed 04/27/2024 8:35 AM [facility] SCAN CORRESP-LABORATORY RESULTS 04/26/2024 4:06 PM [facility] SCAN CORRESP-IMAGING 04/26/2024 4:06 PM [facility] GLUCOSE METER Timed 04/26/2024 3:37 PM [facility] ECHO TTE COMPLETE W CONTRAST Routine 04/26/2024 2:06 PM [facility] XR CHEST 2 VIEWS PA AND LATERAL Routine 04/26/2024 12:36 PM [facility] GLUCOSE METER Timed 04/26/2024 8:28 AM [facility] PHOSPHORUS Early AM 04/26/2024 5:58 AM [facility] BLOOD GAS,VENOUS Early AM 04/26/2024 5:58 AM [facility] CBC W PLT NO DIFF Early AM 04/26/2024 5:5 8 AM [facility] BASIC METABOLIC PANEL Timed 04/26/2024 5:58 AM [facility] PHOSPHORUS PIYUSH 04/25/2024 2:59 PM [facility] LACTATE VENOUS STAT 04/25/2024 2:59 PM [facility] BLOOD GAS,VENOUS STAT 04/25/2024 2:59 PM [facility] BASIC METABOLIC PANEL STAT 04/25/2024 2:59 PM [facility] SCAN-CARDIAC STRIP 04/25/2024 2: 58 PM [facility] GLUCOSE METER Timed 04/25/2024 2:48 PM [facility] from Last 3 Months Results * SCAN CORRESP-IMAGING (06/28/2024 3:02 PM [facility]) Only the most recent of4 resultswithin the time period is included. Anatomical Region Laterality Modality Other Narrative 06/28/2024 3:02 PM [facility] Ordered by an unspecified provider. us Other Clinical Staff OTHER Final Resul t * SCAN CORRESP-EKG RESULTS (06/28/2024 2:48 PM [facility]) Only the most recent of4 resultswithin the time period is included. Narrative 06/28/2024 2:48 PM [facility] Ordered by an unspecified provider. us Other Clinical Staff OTHER Final Resul t * SCAN-CARDIAC STRIP (06/26/2024 7:56 AM [facility]) us Scanner OTHER Final Result * HBSAG (HBS) (06/26/2024 7:16 AM [facility]) Only the most recent of2 resultswithin the time period is included. HBSAG Nonreactive Nonreactive 06/26/2024 10:33 AM [facility] Blood BLOOD SPECIMEN / Unknown Venipuncture / Unknown 06/26/2024 7:16 AM [facility] 06/26/2024 7:34 AM [facility] Luan Tatum MD SEND OUTS Fi nal Result [facility] LABORATORY [address] [place] [address] * PLATELET COUNT (06/26/2024 7:16 AM [facility]) Only the most recent of3 resultswithin the time period is included. PLATELET COUNT 265 140 - 440 thou/cu mm 06/26/2024 7:41 AM [facility] MPV 10.3 6.5 - 11.0 fL 06/26/2024 7:[address] [facility] Blood BLOOD SPECIMEN / Unknown Venipuncture / Unknown 06/26/2024 7:16 AM [facility] 06/26/2024 7:34 AM [facility] us Arun Martinez MD HEMATOLOGY Final Res ult [facility] SENDOUT [address] [place] [address] * WHITE BLOOD COUNT (06/26/2024 7:16 AM [facility]) Only the most recent of3 resultswithin the time period is included. WHITE BLOOD COUNT 10.4 4.5 - 11.0 thou/cu mm 06/26/2024 7:41 AM [facility] NRBC 0.0 % 06/26/2024 7:41 AM [facility] ABS NRBC 0.0 thou /cu mm 06/26/2024 7:[address] [facility] Blood BLOOD SPECIMEN / Unknown Venipuncture / Unknown 06/26/2024 7:16 AM [facility] 06/26/2024 7:34 AM [facility] Arun Martinez MD HEMATOLOGY Final Res ult [facility] [address] [phone] [place] [address] * (ABNORMAL) HEMOGLOBIN (06/26/2024 7:16 AM [facility]) Only the most recent of6 resultswithin the time period is included. HEMOGLOBIN 10.4(L) 13.5 - 17.5 g/dL 06/26/2024 7:41 AM [facility] MCV 95 80 - 100 fL 06/26/2024 7:41 AM [facility] Blood BLOOD SPECIMEN / Unknown Venipuncture / Unknown 06/26/2024 7:16 AM [facility] 06/26/2024 7:34 AM [facility] Arun Martinez MD HEMATOLOGY Final Res ult Performing Organization Address City/[facility]/ZIP Co de Phone Number [facility] SENDOUT INTERNAL ZIP [phone] [place] [address] * (ABNORMAL) SODIUM (06/26/2024 7:16 AM [facility]) Only the most recent of3 resultswithin the time period is included. SODIUM 135(L) 136 - 145 mmol/L 06/26/2024 8:00 AM [facility] Blood BLOOD SPECIMEN / Unknown Venipuncture / Unknown 06/26/2024 7:16 AM [facility] 06/26/2024 7:34 AM [facility] us Arun Martinez MD CHEMISTRY Final Res ult [facility] SENDOUT [address] [place] [phone] * POTASSIUM (06/26/2024 7:16 AM [facility]) Only the most recent of4 resultswithin the time period is included. POTASSIUM 4.0 3.5 - 5.1 mmol/L 06/26/2024 8:00 AM [facility] Blood BLOOD SPECIMEN / Unknown Venipuncture / Unknown 06/26/2024 7:16 AM [facility] 06/26/2024 7:34 AM [facility] Arun Martinez MD CHEMISTRY Final Res ult Performing Organization Address [facility]/ZIP Co de Phone Number [facility] SENDOUT INTERNAL ZIP [phone] [place] [phone] * MAGNESIUM (06/26/2024 7:16 AM [facility]) Only the most recent of7 resultswithin the time period is included. MAGNESIUM 2.2 1.6 - 2.4 mg/dL 06/26/2024 8:00 AM [facility] Blood BLOOD SPECIMEN / Unknown Venipuncture / Unknown 06/26/2024 7:16 AM [facility] 06/26/2024 7:34 AM [facility] Arun Martinez MD CHEMISTRY Final Res t Performing Organization Address [facility] [[email or web address]] de Phone Number [facility] SENDOUT INTERNAL ZIP [address] [place] [phone] * SCAN-CARDIAC STRIP (06/25/2024 8:41 PM [facility]) Scanner OTHER Final Result * (ABNORMAL) VITAMIN D 25 (DEFICIENCY) (05/27/2024 12:29 PM [facility]) Only the most recent of2 resultswithin the time period is included. VITAMIN D,25-OH,TOTAL,IA 19(L) 30 - 100 ng/mL [facility]anue[facility] Comment: Vitamin D Status 25-OH Vitamin D: Deficiency: <20 ng/mL Insufficiency: 20 - 29 ng/mL Optimal: > or = 30 ng/mL For 25-OH Vitamin D testing on patients on D2-supplementation and patients for whom quantitation of D2 and D3 fractions is required, the QuestAssureD(TM) 25-OH VIT D, (D2,D3), LC/MS/MS is recommended: order code 16966 (patients >2yrs). See Note 1 Note 1 For additional information, please refer to http://education.[employer]abetes America/faq/EEU017 (This link is being provided for informational/ educational purposes only.) Blood BLOOD SPECIMEN / Unknown 05/27/2024 12:29 PM [facility] 05/27/2024 12:29 PM [facility] us Shelia Dietrich DO SEND OUTS Final Resu lt [email or web address] [facility] [address] [place] [address], [employer] [address] [place] [address] * (ABNORMAL) BASIC METABOLIC PANEL (05/27/2024 12:29 PM [facility]) Only the most recent of11 resultswithin the time period is included. Pathologist [facility] GLUCOSE 97 65 - 99 mg/dL [employer] Comment: Fasting reference interval UREA NITROGEN (BUN) 31(H) 7 - 25 mg/dL [facility] CREATININE 4.66(H) 0.70 - 1.35 mg/dL [facility] EGFR 13(L) > OR = [...] Rich CALCIUM 9.6 8.6 - 10.3 mg/dL [employer] [facility] Blood BLOOD SPECIMEN / Unknown 05/27/2024 12:29 PM [facility] 05/27/2024 12:29 PM [facility] Shelia Chaconxler DO CHEMISTRY Final Resu lt [email or web address] [facility] [address] [place] [address], [employer] [employer] [address] [place] [address] * CT Chest without contrast (05/24/2024 1:53 PM [facility]) Anatomical Region Laterality Modality CHEST, THORAX, HEART Computed To mography 05/24/2024 2:26 PM [facility] Impressions 05/24/2024 2:26 PM [facility] 1. No significant change in the large [...] PM (Electronically Signed) Narrative 05/24/2024 2:26 PM [facility] For Patients: As a result of the [...] [facility] F[facility]: Stable right-sided dual lumen venous access [...] or atelectasis at the left lung base [id number] series 4. Subpleural fibrosis at the lung [...] REAL TIME PCR QUANT (05/20/2024 1:58 PM [facility]) HBV IU mL HBV DNA not detected IU/mL 05/23/2024 6:06 PM [facility] log10 HBV IU mL 05/23/2024 6:06 PM [facility] Comment: Unable to calculate result since non-numeric result obtained for component test. HBV Test Info Comment 05/23/2024 6:06 PM [facility] Comment:The reportable range for this assay is 10 IU/mL to 1 billion IU/mL. Blood BLOOD SPECIMEN / Unknown Non-Lab Venipuncture / Unknown 05/20/2024 1:58 PM [facility] 05/20/2024 2:09 PM [facility] Narrative [facility] - 05/23/2024 6:06 PM [facility] Performed at: 01 - [employer] [employer] [address] [address], [place], [place] [id number] Visitor Information Assistant: Basilio Oden MD, Phone: [phone] us Jasvir Parrish MD SEND OUTS Final Re sult [facility] ([facility]) [address] [place] [address], * (ABNORMAL) RENAL FUNCTION PANEL (05/20/2024 1:58 PM [facility]) Only the most recent of2 resultswithin the time period is included. SODIUM 132(L) 136 - 145 mmol/L 05/20/2024 2:39 PM [facility] TRAL LABORATORY POTASSIUM 4.0 3.5 - 5.1 mmol/L 05/20/2024 2:39 PM [facility] TRAL [facility] CHLORIDE 96(L) 98 - 107 mmol/L 05/20/2024 2:39 PM [facility] TR[facility] CO2,TOTAL 20(L) 22 - 29 mmol/L 05/20/2024 2:39 PM [facility] TR[facility] LAB[facility] ANION GAP 16 5 - 18 05/20/2024 2:39 PM [facility] TR[facility] GLUCOSE 119(H) 70 - 99 mg/dL 05/20/2024 2:39 PM [facility] TR[facility] CALCIUM 8.8 8.8 - 10.4 mg/dL 05/20/2024 2:39 PM [facility] Comment: Reference ranges for this test were updated on 03/30/2024 to reflect our healthy population more accurately. Reference range changes are not retroactively applied to results, but previous results using the same methodology can be interpreted in the context of the new reference range. BUN 40(H) 8 - 23 mg/dL 05/20/2024 2:39 PM [facility] CREATININE 4.41(H) 0.70 - 1.20 mg/dL 05/20/2024 2:39 PM [facility] TRA LABORATORY BUN/CREAT RATIO 9(L) 10 - 20 2:39 PM [facility] eGFR 14(L) >90 mL/min/1. 73m2 05/20/2024 2:39 PM [facility] Comment:As of 2021, eG FR is calculated by the CKD-EPI creatinine equation without race adjustment. eGFR can be influenced by muscle mass, exercise, and diet. The reported eGFR is an estimation only and is only applicable if the renal function is stable. PHOSPHORUS 4.0 2.5 - 4.5 mg/dL 05/20/2024 2:39 PM [facility] ALBUMIN 3.7(L) 4.0 - 4.9 g/dL 05/20/2024 2:39 PM [facility] Blood BLOOD SPECIMEN / Unknown Non-Lab Venipuncture / Unknown 05/20/2024 1:58 PM [facility] 05/20/2024 2:08 PM [facility] us Sheyla Aparicio MD CHEMISTRY Final Resu lt [facility] [address] [place] [address], * (ABNORMAL) CBC W PLT NO DIFF (05/20/2024 1:57 PM [facility]) Only the most recent of6 resultswithin the time period is included. WHITE BLOOD COUNT 11.4(H) 4.5 - 11.0 thou/cu mm 05/20/2024 2:14 PM [facility] TRAL LABORATORY RED BLOOD COUNT 2.71(L) 4.30 - 5.90 mil/cu mm 05/20/2024 2:14 PM [facility] TRAL LABORATORY HEMOGLOBIN 8.7(L) 13.5 - 17.5 g/dL 05/20/2024 2:14 PM [facility] HEMATOCRIT 26.2(L) 37.0 - 53.0 % 05/20/2024 2:14 PM [facility] TRAL LABORATORY MCV 97 80 - 100 fL 05/20/2024 2:14 PM [facility] TRAL LAB[facility] MCH 32.1 26.0 - 34.0 pg 05/20/2024 2:14 PM [facility] TRAL LABORAT[facility] MCHC 33.2 32.0 - 36.0 g/dL 05/20/2024 2:14 PM [facility] TRAL LABORAT[facility] RDW 12.5 11.5 - 15.5 % 05/20/2024 2:14 PM [facility] PLATELET COUNT 279 140 - 440 thou/cu mm 05/20/2024 2:14 PM [facility] TRAL LABORAT[facility] MPV 11.8(H) 6.5 - 11.0 fL 05/20/2024 2:14 PM [facility] NRBC 0.0 % 05/20/2024 2:14 PM [facility] ABS NRBC 0.0 thou /cu mm 05/20/2024 2:14 PM [facility] Blood BLOOD SPECIMEN / Unknown Non-Lab Venipuncture / Unknown 05/20/2024 1:57 PM [facility] 05/20/2024 2:08 PM [facility] Dipak Hendrickson MD HEMATOLOGY Final Resu lt [facility] [address] [address], * (ABNORMAL) PHOSPHORUS (05/19/2024 3:27 PM [facility]) Only the most recent of5 resultswithin the time period is included. PHOSPHORUS 2.1(L) 2.5 - 4.5 mg/dL 05/19/2024 4:13 PM [facility] Blood BLOOD SPECIMEN / Unknown Butterfly / Unknown 05/19/2024 3:27 PM [facility] 05/19/2024 3:32 PM [facility] Dipak Hendrickson MD CHEMISTRY Final Resu lt Performing Organization Address City/[facility]/ZIP Co de Phone Number [facility] [address] [place] [phone], * (ABNORMAL) GLUCOSE METER (05/18/2024 11:30 PM [facility]) Only the most recent of8 resultswithin the time period is included. GLUCOSE METER 105(H) 65 - 100 mg/dL 05/18/2024 11:32 PM [facility] Blood BLOOD SPECIMEN / Unknown 05/18/2024 11:30 PM [facility] 05/18/2024 11:32 PM [facility] us Doctor Unknown CHEMISTRY Final Result Performing Organization Address [facility] Co de Phone Number [facility] [address] [place] [address], [place] * HCV RT-PCR, QUANT (NON-GRAPH) [facility] (05/18/2024 10:30 AM [facility]) Only the most recent of2 resultswithin the time period is included. Hep C Qn HCV Not Detected IU/mL 05/22/2024 2:06 PM [facility] HCV Test Info Comment 05/22/2024 2:06 PM [facility] Comment:The quantitative ran ge of this assay is 15 IU/mL to 100 million IU/mL. Blood BLOOD SPECIMEN / Unknown Venipuncture / Unknown 05/18/2024 10:30 AM [facility] 05/18/2024 10:35 AM [facility] Narrative [facility] - 05/22/2024 2:06 PM [facility] Performed at: 01 - [facility] [place] [address] [id number] Visitor Information Assistant: Basilio Oden MD, Phone: [phone] us Osmani Ceron MD LABORATORY Final Resul t Performing Organization Address City/[facility]/ZIP Co de Phone Number [facility] ([facility]) [address] [place] [address], * (ABNORMAL) BLOOD GAS,VENOUS (05/18/2024 4:58 AM [facility]) Only the most recent of5 resultswithin the time period is included. PH, VENOUS 7.41 7.32 - 7.43 05/18/2024 5:34 AM [facility] PCO2, VENOUS 39(L) 41 - 51 mmHg 05/18/2024 5:34 AM [facility] TRAL LABORATORY PO2, VENOUS 43(H) 35 - 40 mmHg 05/18/2024 5:34 AM [facility] TRAL LAB[facility] HCO3,VENOUS 25 22 - 29 mmol/L 05/18/2024 5:34 AM [facility] TRAL LAB[facility] BASE EXCESS, VENOUS, POCT 0.1 -2.0 - 3.0 05/18/2024 5:34 AM [facility] TRAL LAB[facility] O2 SATURATION, VENOUS 76(H) 70 - 75 % 05/18/2024 5:34 AM [facility] TR[facility] PATIENT TEMPERATURE 37.0 Degrees C 05/18/2024 5:34 AM [facility] TRAL [facility] Blood VENOUS BLOOD SPECIMEN / Unknown Venipuncture / Unknown 05/18/2024 4:58 AM [facility] 05/18/2024 5:30 AM [facility] Dipak Hendrickson MD CHEMISTRY Final Resu lt [facility] [address] [place] [address], * SCAN-CARDIAC STRIP (05/17/2024 10:36 PM [facility]) us Scanner OTHER Final Result * (ABNORMAL) CBC WITH AUTO DIFFERENTIAL (05/17/2024 4:42 PM [facility]) Only the most recent of2 resultswithin the time period is included. WHITE BLOOD COUNT 8.6 4.5 - 11.0 thou/cu mm 05/17/2024 4:58 PM [facility] TRAL LABORAT[facility] RED BLOOD COUNT 2.49(L) 4.30 - 5.90 mil/cu mm 05/17/2024 4:58 PM [facility] TRAL LABORAT[facility] HEMOGLOBIN 8.1(L) 13.5 - 17.5 g/dL 05/17/2024 4:58 PM [facility] TRAL LABORATORY HEMATOCRIT 25.0(L) 37.0 - 53.0 % 05/17/2024 4:58 PM [facility] TRAL LABORATORY MCV 100 80 - 100 fL 05/17/2024 4:58 PM [facility] TRAL LABORAT[facility] MCH 32.5 26.0 - 34.0 pg 05/17/2024 4:58 PM [facility] TRAL LABORAT[facility] MCHC 32.4 32.0 - 36.0 g/dL 05/17/2024 4:58 PM [facility] TRAL LABORAT[facility] RDW 12.8 11.5 - 15.5 % 05/17/2024 4:58 PM [facility] TRAL LABORATORY PLATELET COUNT 306 140 - 440 thou/cu mm 05/17/2024 4:58 PM [facility] TRAL LABORAT[facility] MPV 11.3(H) 6.5 - 11.0 fL 05/17/2024 4:58 PM [facility] TRAL LABOR[facility] NRBC 0.0 % 05/17/2024 4:58 PM [facility] TRAL LABOR[facility] ABS NRBC 0.0 thou /cu mm 05/17/2024 4:58 PM [facility] TRAL LAB[facility] % NEUT 84.4 % 05/17/2024 4:58 PM [facility] TRAL [facility] % LYMPH 13.1 % 05/17/2024 4:58 PM [facility] TRAL [facility] % MONO 1.5 % 05/17/2024 4:58 PM [facility] % EOS 0.0 % 05/17/2024 4:58 PM [facility] TRAL [facility] % BASO 0.2 % 05/17/2024 4:58 PM [facility] TRAL LABOR[facility] % IMMATURE GRAN (METAS,MYELOS,SC OS) 0.8 % 05/17/2024 4:58 PM [facility] TRAL LABOR[facility] ABSOLUTE NEUTROPHILS 7.3(H) 1.7 - 7.0 thou/cu mm 05/17/2024 4:58 PM [facility] TRAL [facility] ABSOLUTE LYMPHOCYTES 1.1 0.9 - 2.9 thou/cu mm 05/17/2024 4:58 PM [facility] ABSOLUTE MONOCYTES 0.1 <0.9 thou/cu mm 05/17/2024 4:58 PM [facility] ABSOLUTE EOSINOPHILS 0.0 <0.5 thou/cu mm 05/17/2024 4:58 PM [facility]MET[facility] ABSOLUTE BASOPHILS 0.0 <0.3 thou/cu mm 05/17/2024 4:58 PM [facility] TRAL [facility] ABSOLUTE IMMATURE GRANULOCYTES(MET ,MYELOS,PROS) 0.1 <0.3 thou/cu mm 05/17/2024 4:58 PM [facility] Blood BLOOD SPECIMEN / Unknown Line/Port / Unknown 05/17/2024 4:42 PM [facility] 05/17/2024 4:49 PM [facility] us Jaden Aguilar MB HEMATOLOGY Final Result [facility] [address] [address], * LACTATE VENOUS (05/17/2024 4:03 PM [facility]) Only the most recent of3 resultswithin the time period is included. LACTATE,VENOUS 0.8 0.5 - 2.0 mmol/L 05/17/2024 4:40 PM [facility] Blood BLOOD SPECIMEN / Unknown Venipuncture / Unknown 05/17/2024 4:03 PM [facility] 05/17/2024 4:11 PM [facility] Jaden Nieves Sultan PATRICK CHEMISTRY Final Result [facility] [address] [place] [address], * (ABNORMAL) PROCALCITONIN (05/17/2024 4:03 PM [facility]) PROCALCITONIN 6.23(H) ng/ml 05/17/2024 5:00 PM [facility] TRAL [facility]ORAT[facility] Blood BLOOD SPECIMEN / Unknown Venipuncture / Unknown 05/17/2024 4:03 PM [facility] 05/17/2024 4:11 PM [facility] Narrative [facility] - 05/17/2024 5:00 PM [facility] Procalcitonin for initial assessment of Lower Respiratory [...] any concentrations < 2 ng/mL are obtained. Jaden PATRICKBS SEND OUTS Final Result Performing Organization Address [facility] Co de Phone Number [facility] [address] [place] [address], [place] * (ABNORMAL) IRON PLUS IRON BINDING CAP (05/17/2024 4:03 PM [facility]) Only the most recent of2 resultswithin the time period is included. IRON 40(L) 61 - 157 ug/dL 05/17/2024 4:54 PM [facility] UIBC (UNSATURATED) 237 112 - 347 ug/dL 05/17/2024 4:54 PM [facility] IRON BINDING CAPACITY 277 250 - 400 ug/dL 05/17/2024 4:54 PM [facility] IRON,% SATURATION 14 14 - 50 % 05/17/2024 4:54 PM [facility] Blood BLOOD SPECIMEN / Unknown Venipuncture / Unknown 05/17/2024 4:03 PM [facility] 05/17/2024 4:11 PM [facility] Dipak Hendrickson MD CHEMISTRY Final Resu lt Performing Organization Address [facility] Co de Phone Number [facility] [address] [place] [address], [place] * (ABNORMAL) PRO-BNP (05/17/2024 4:03 PM [facility]) Only the most recent of2 resultswithin the time period is included. PRO-BNP 36,616(H) <125 pg/mL 05/17/2024 6:13 PM [facility] Blood BLOOD SPECIMEN / Unknown Venipuncture / Unknown 05/17/2024 4:03 PM [facility] 05/17/2024 4:11 PM [facility] Narrative [facility] - 05/17/2024 6:13 PM [facility] The following cut-points have been suggested for [...] OUTS Final Resu lt Performing Organization Address City/[facility] Co de Phone Number [facility] [address] [address], [place] * FERRITIN (05/17/2024 4:03 PM [employer]) Only the most recent of2 resultswithin the time period is included. FERRITIN 181.0 30.0 - 400.0 ng/mL 05/17/2024 4:54 PM [employer] [facility] Blood BLOOD SPECIMEN / Unknown Venipuncture / Unknown 05/17/2024 4:03 PM [employer] 05/17/2024 4:11 PM [employer] us Dipak Hendrickson MD CHEMISTRY Final Resu lt Performing Organization Address [facility] Co de Phone Number [facility] [address] [address], [place] * (ABNORMAL) Hepatic Function Panel (05/17/2024 4:03 PM [facility]) ALBUMIN 3.8(L) 4.0 - 4.9 g/dL 05/17/2024 4:54 PM [facility] PROTEIN,TOTAL 6.6 6.0 - 8.0 g/dL 05/17/2024 4:54 PM [facility] BILIRUBIN,TOTAL 0.2 0.0 - 1.2 mg/dL 05/17/2024 4:54 PM [facility] BILIRUBIN,DIRECT 0.1 0.0 - 0.2 mg/dL 05/17/2024 4:54 PM [facility] ALK PHOSPHATASE 145(H) 40 - 129 IU/L 05/17/2024 4:54 PM [facility] ALT (SGPT) 10 10 - 50 IU/L 05/17/2024 4:54 PM [facility] AST (SGOT) 19 10 - 50 IU/L 05/17/2024 4:54 PM [facility] Blood BLOOD SPECIMEN / Unknown Venipuncture / Unknown 05/17/2024 4:03 PM [facility] 05/17/2024 4:11 PM [facility] us Jaden W [facility] CHEMISTRY Final Result [facility] [address] [place] [id number], [place] * CT CHEST W (05/11/2024 1:15 PM [facility]) Anatomical Region Laterality Modality CHEST, THORAX, HEART Computed To mography 05/11/2024 1:15 PM [facility] Impressions 05/11/2024 1:47 PM [facility] 1. Large masslike area of consolidation within the right lower lobe which is concerning for malignancy although pneumonia could have a similar appearance. If concern for pneumonia, recommend appropriate interval follow-up chest x-ray in 4-6 weeks to assure complete resolution. Otherwise recommend further workup for malignancy. Narrative 05/11/2024 1:47 PM [facility] For Patients: As a result of the Cures Act, medical imaging exams and procedure reports are released immediately into your electronic medical record. You may view this report before your referring provider. If you have questions, please contact your health care provider. EXAM: CT CHEST W LOCATION: [facility] MEDICAL IMAGING DATE: 05/11/2024 INDICATION: Lung mass [...] care provider. EXAM: CT CHEST W LOCATION: [facility] MEDICAL [facility]AGING DATE: 05/11/2024 INDICATION: Lung mass [...] * QFT MITOGEN PERFORMABLE (05/11/2024 10:50 AM [facility]) MITOGEN 10.00 IU/mL 05/12/2024 9:47 AM [facility] Blood BLOOD SPECIMEN / Unknown Venipuncture / Unknown 05/11/2024 10:50 AM [facility] 05/11/2024 10:53 AM [facility] us Yazmin Briggs MD CHEMISTRY Final Result [facility] [address] [place] [address], * QFT TB2 PERFORMABLE (05/11/2024 10:50 AM [facility]) TB2 0.04 IU/mL 05/12/2024 9:47 AM [facility] Blood BLOOD SPECIMEN / Unknown Venipuncture / Unknown 05/11/2024 10:50 AM [facility] 05/11/2024 10:53 AM [facility] us Yazmin Briggs MD CHEMISTRY Final Result [facility] [address] [place] [id number], [place] * QFT TB1 PERFORMABLE (05/11/2024 10:50 AM [facility]) TB1 0.04 IU/mL 05/12/2024 9:47 AM [facility] Blood BLOOD SPECIMEN / Unknown Venipuncture / Unknown 05/11/2024 10:50 AM [facility] 05/11/2024 10:53 AM [facility] Yazmin Briggs MD CHEMISTRY Final Result Performing Organization Address City/[facility]/ZIP Co de Phone Number [facility] [address] [place] [id number], [place] * QUANTIFERON TB GOLD PLUS (05/11/2024 10:50 AM [facility]) QFTP NIL 0.04 05/12/2024 10:09 AM [facility] TB1 0.04 IU/mL 05/12/2024 10:09 AM [facility] TB2 0.04 IU/mL 05/12/2024 10:09 AM [facility] MITOGEN 10.00 IU/mL 05/12/2024 10:09 AM [facility] QFTP TB AG1 - NIL 0.00 024 10:09 AM [facility] TB1-NIL % OF NIL 0 % 05/12/20 24 10:09 AM [facility] QFTP TB AG2 - NIL 0.00 024 10:09 AM [facility] TB2-NIL % OF NIL 0 % 05/12/20 24 10:09 AM [facility] QFTP MITOGEN - NIL 9.96 2023 10:09 AM [facility] QFTP QUANTIFERON INTERPRETATION Negative Negative 05/12/2024 10:09 AM [facility] Blood BLOOD SPECIMEN / Unknown Venipuncture / Unknown 05/11/2024 10:50 AM [facility] 05/11/2024 10:53 AM [facility] Narrative [facility] - 05/12/2024 10:09 AM [facility] M. tuberculosis infection not likely, but cannot [...] us Yazmin Briggs MD CHEMISTRY Final Result [facility] [address] [place] [address], [place] * SCAN-CARDIAC STRIP (05/10/2024 11:50 PM [facility]) us Scanner OTHER Final Result * SCAN-CARDIAC STRIP (05/10/2024 11:50 PM [facility]) us Scanner OTHER Final Result * SCAN-CARDIAC STRIP (05/10/2024 11:50 PM [facility]) us Scanner OTHER Final Result * SCAN-CARDIAC STRIP (05/10/2024 11:50 PM [facility]) us Scanner OTHER Final Result * SCAN-CARDIAC STRIP (05/10/2024 5:10 PM [facility]) us Scanner OTHER Final Result * SCAN-CARDIAC STRIP (05/10/2024 5:10 PM [facility]) us Scanner OTHER Final Result * SCAN-CARDIAC STRIP (05/10/2024 5:10 PM [facility]) us Scanner OTHER Final Result * SCAN-CARDIAC STRIP (05/10/2024 5:10 PM [facility]) us Scanner OTHER Final Result * SCAN-CARDIAC STRIP (05/10/2024 9:13 AM [facility]) us Scanner OTHER Final Result * SCAN-CARDIAC STRIP (05/10/2024 9:13 AM [facility]) us Scanner OTHER Final Result * SCAN-CARDIAC STRIP (05/10/2024 9:13 AM [facility]) us Scanner OTHER Final Result * SCAN-CARDIAC STRIP (05/10/2024 9:13 AM [facility]) us Scanner OTHER Final Result * SCAN-CARDIAC STRIP (05/10/2024 12:07 AM [facility]) us Scanner OTHER Final Result * SCAN-CARDIAC STRIP (05/10/2024 12:07 AM [facility]) us Scanner OTHER Final Result * SCAN-CARDIAC STRIP (05/10/2024 12:07 AM [facility]) us Scanner OTHER Final Result * SCAN-CARDIAC STRIP (05/10/2024 12:07 AM [facility]) us Scanner OTHER Final Result * SCAN-CARDIAC STRIP (05/09/2024 9:14 PM [facility]) us Scanner OTHER Final Result * SCAN-CARDIAC STRIP (05/09/2024 9:14 PM [facility]) us Scanner OTHER Final Result * SCAN-CARDIAC STRIP (05/09/2024 9:14 PM [facility]) us Scanner OTHER Final Result * SCAN-CARDIAC STRIP (05/09/2024 9:14 PM [facility]) us Scanner OTHER Final Result * SCAN-CARDIAC STRIP (05/09/2024 4:19 PM [facility]) us Scanner OTHER Final Result * SCAN-CARDIAC STRIP (05/09/2024 4:19 PM [facility]) us Scanner OTHER Final Result * SCAN-CARDIAC STRIP (05/09/2024 4:19 PM [facility]) us Scanner OTHER Final Result * SCAN-CARDIAC STRIP (05/09/2024 4:19 PM [facility]) us Scanner OTHER Final Result * SCAN-CARDIAC STRIP (05/09/2024 7:15 AM [facility]) us Scanner OTHER Final Result * SCAN-CARDIAC STRIP (05/09/2024 7:15 AM [facility]) us Scanner OTHER Final Result * SCAN-CARDIAC STRIP (05/09/2024 7:15 AM [facility]) us Scanner OTHER Final Result * SCAN-CARDIAC STRIP (05/09/2024 7:15 AM [facility]) us Scanner OTHER Final Result * SCAN-CARDIAC STRIP (05/09/2024 12:48 AM [facility]) us Scanner OTHER Final Result * SCAN-CARDIAC STRIP (05/09/2024 12:48 AM [facility]) us Scanner OTHER Final Result * SCAN-CARDIAC STRIP (05/09/2024 12:48 AM [facility]) us Scanner OTHER Final Result * SCAN-CARDIAC STRIP (05/09/2024 12:48 AM [facility]) us Scanner OTHER Final Result * SCAN-CARDIAC STRIP (05/08/2024 7:43 PM [facility]) us Scanner OTHER Final Result * SCAN-CARDIAC STRIP (05/08/2024 7:43 PM [facility]) us Scanner OTHER Final Result * SCAN-CARDIAC STRIP (05/08/2024 7:43 PM [facility]) us Scanner OTHER Final Result * SCAN-CARDIAC STRIP (05/08/2024 7:43 PM [facility]) us Scanner OTHER Final Result * SCAN-CARDIAC STRIP (05/08/2024 3:43 PM [facility]) us Scanner OTHER Final Result * SCAN-CARDIAC STRIP (05/08/2024 3:43 PM [facility]) us Scanner OTHER Final Result * SCAN-CARDIAC STRIP (05/08/2024 3:43 PM [facility]) us Scanner OTHER Final Result * SCAN-CARDIAC STRIP (05/08/2024 3:43 PM [facility]) us Scanner OTHER Final Result * SCAN-CARDIAC STRIP (05/08/2024 7:19 AM [facility]) us Scanner OTHER Final Result * SCAN-CARDIAC STRIP (05/08/2024 7:19 AM [facility]) us Scanner OTHER Final Result * SCAN-CARDIAC STRIP (05/08/2024 7:19 AM [facility]) us Scanner OTHER Final Result * SCAN-CARDIAC STRIP (05/08/2024 7:19 AM [facility]) us Scanner OTHER Final Result * SCAN-CARDIAC STRIP (05/08/2024 1:00 AM [facility]) us Scanner OTHER Final Result * SCAN-CARDIAC STRIP (05/08/2024 1:00 AM [facility]) us Scanner OTHER Final Result * SCAN-CARDIAC STRIP (05/08/2024 1:00 AM [facility]) us Scanner OTHER Final Result * SCAN-CARDIAC STRIP (05/08/2024 1:00 AM [facility]) us Scanner OTHER Final Result * SCAN-CARDIAC STRIP (05/07/2024 9:08 PM [facility]) us Scanner OTHER Final Result * SCAN-CARDIAC STRIP (05/07/2024 9:08 PM [facility]) us Scanner OTHER Final Result * SCAN-CARDIAC STRIP (05/07/2024 9:08 PM [facility]) us Scanner OTHER Final Result * SCAN-CARDIAC STRIP (05/07/2024 9:08 PM [facility]) us Scanner OTHER Final Result * SCAN-CARDIAC STRIP (05/07/2024 5:03 PM [facility]) us Scanner OTHER Final Result * SCAN-CARDIAC STRIP (05/07/2024 5:03 PM [facility]) us Scanner OTHER Final Result * SCAN-CARDIAC STRIP (05/07/2024 5:03 PM [facility]) us Scanner OTHER Final Result * SCAN-CARDIAC STRIP (05/07/2024 5:03 PM [facility]) us Scanner OTHER Final Result * XR CHEST 1 VIEW PORTABLE (05/07/2024 4:49 PM [facility]) Anatomical Region Laterality Modality HEART, THORAX, CHEST Computed Ra diography 05/07/2024 4:49 PM [facility] Impressions 05/07/2024 5:09 PM [facility] Again noted is medial right lower lung [...] < 1 Month Narrative 05/07/2024 5:09 PM [facility] For Patients: As a result of the Cures Act, medical imaging exams and procedure reports are released immediately into your electronic medical record. You may view this report before your referring provider. If you have questions, please contact your health care provider. EXAM: XR CHEST 1 VIEW PORTABLE LOCATION: [facility] MEDICAL IMAGING DATE: 05/07/2024 INDICATION: Lung infiltrate COMPARISON: 04/26/2024 Procedure Note So, Tadeo Blanco MD - 05/07/2024 For Patients: As a result of the Cures Act, medical imagingexams and procedure reports are released immediately into your electronicmedical record. You may view this report before your referring provider.If you have questions, please contact your health care provider. EXAM: XR CHEST 1 VIEW PORTABLE LOCATION: [facility] MEDICAL IMAGING DATE: 05/07/2024 INDICATION: Lung infiltrate [...] ult * SCAN-CARDIAC STRIP (05/07/2024 12:39 PM [facility]) us Scanner OTHER Final Result * SCAN-CARDIAC STRIP (05/07/2024 12:39 PM [facility]) us Scanner OTHER Final Result * SCAN-CARDIAC STRIP (05/07/2024 12:39 PM [facility]) us Scanner OTHER Final Result * SCAN-CARDIAC STRIP (05/07/2024 12:39 PM [facility]) us Scanner OTHER Final Result * ECHO TTE LIMITED WO CONTRAST W COLOR W LTD DOPPLER (05/07/2024 11:27 AM [facility]) EJECTION FRACTION 50% PROSOLV Anatomical Region Laterality Modality Ultrasound 05/07/2024 12:0 2 PM [facility] Narrative 05/07/2024 12:52 PM [facility] [place] [address] Main: [email or web address] Transthor[facility] Echo Report HENRIQUEBARON Bjorn ID: [id number] Age: 63 : 1960 Ordering Provider: ARUN MARTINEZ Exam Date: 05/07/2024 12:02 Gender: M Clerk Operator: [facility] Height: 68 in BSA: 1.61 m [...] % >= 55 % Alirio Reyes MD [facility] Accredited Site (Electronically Signed) Final Date: 07 May 2024 12:52 ICD-10 Codes: Procedure Note Alirio Reyes MD - 05/07/2024 [place] [address] Main: [email or web address] Tran[facility] Echo Report BARON DUENAS Mendozaermias ID: [id number] Age: 63 : 1960 Ordering Provider:ARUN MARTINEZ Exam Date: 05/07/2024 12:02 Gender: M Clerk Operator: [facility] Height: 68 in BSA: 1.61 m [...] % >= 55 % Alirio Reyes MD [facility] Accredited Site (Electronically Signed) Final Date: 07 May 2024 12:52 ICD-10 Codes: us Arun Martinez MD ECHO ORD Final Res ult * SCAN-CARDIAC STRIP (05/07/2024 9:32 AM [facility]) us Scanner OTHER Final Result * SCAN-CARDIAC STRIP (05/07/2024 9:32 AM [facility]) us Scanner OTHER Final Result * SCAN-CARDIAC STRIP (05/07/2024 9:32 AM [facility]) us Scanner OTHER Final Result * SCAN-CARDIAC STRIP (05/07/2024 9:32 AM [facility]) us Scanner OTHER Final Result * (ABNORMAL) TROPONIN T (HS) ONE TIME (05/07/2024 1:36 AM [facility]) TROPONIN T HS 87(H) 6-15 ng/L ng/L 05/07/2024 2:07 AM [facility] Blood BLOOD SPECIMEN / Unknown Venipuncture / Unknown 05/07/2024 1:36 AM [facility] 05/07/2024 1:43 AM [facility] us Eric Gomes NP CHEMISTRY Final Result [facility] [address] [place] [address] [id number] [address] [place] [address] * SCAN-CARDIAC STRIP (05/07/2024 12:00 AM [facility]) us Scanner OTHER Final Result * SCAN-CARDIAC STRIP (05/07/2024 12:00 AM [facility]) us Scanner OTHER Final Result * SCAN-CARDIAC STRIP (05/07/2024 12:00 AM [facility]) us Scanner OTHER Final Result * SCAN-CARDIAC STRIP (05/07/2024 12:00 AM [facility]) us Scanner OTHER Final Result * (ABNORMAL) TROPONIN T (HS) ACUTE W/2HR REFLEX (05/06/2024 11:07 PM [facility]) TROPONIN T HS 90(H) 6-15 ng/L ng/L 05/06/2024 11:31 PM [facility] Blood BLOOD SPECIMEN / Unknown Butterfly / Unknown 05/06/2024 11:07 PM [facility] 05/06/2024 11:11 PM [facility] Narrative [facility] - 05/06/2024 11:31 PM [facility] hs-cTnT (Elecsys Troponin T Gen 5) concentration [...] population. us Eric Gomes NP CHEMISTRY Final Result [facility] [address] [place] [address] [id number] [address] [place] [address] * EKG 12 LEAD (05/06/2024 10:20 PM [facility]) Interpretation Normal sinus rhythm Voltage criteria for [...] NOW QTc 514 ms BEYOND NOW P Franklin 57 degrees BEYOND NOW R Franklin 49 degrees BEYOND NOW T Franklin 149 degrees BEYOND NOW 05/06/2024 10:2 0 PM [facility] 05/07/2024 5:33 PM [facility] us Eric Gomes NP EKG ORD Final Result Performing Organization Address City/State/[facility] Co de Phone Number [facility] NOW [place], [place] * SCAN-CARDIAC STRIP (05/06/2024 3:52 PM [facility]) us Scanner OTHER Final Result * SCAN-CARDIAC STRIP (05/06/2024 3:52 PM [facility]) us Scanner OTHER Final Result * SCAN-CARDIAC STRIP (05/06/2024 3:52 PM [facility]) us Scanner OTHER Final Result * SCAN-CARDIAC STRIP (05/06/2024 3:52 PM [facility]) us Scanner OTHER Final Result * SCAN-CARDIAC STRIP (05/06/2024 12:42 PM [facility]) us Scanner OTHER Final Result * SCAN-CARDIAC STRIP (05/06/2024 12:42 PM [facility]) us Scanner OTHER Final Result * SCAN-CARDIAC STRIP (05/06/2024 12:42 PM [facility]) us Scanner OTHER Final Result * US VEIN MAPPING UPPER EXTREMITY BILATERAL (04/28/2024 9:45 PM [facility]) Anatomical Region Laterality Modality ARM L, ARM R Ultrasound 04/28/2024 9:45 PM [facility] Impressions 04/29/2024 7:38 AM [facility] 1. Superficial thrombophlebitis of the right cephalic vein at the shoulder. 2. Bilateral upper extremity cephalic and basilic vein measurements as above. 3. Patent bilateral upper extremity subclavian, brachial and radial arteries. The right upper extremity arteries demonstrate monophasic waveforms which raises concern for a mild inflow stenosis. Narrative 04/29/2024 7:38 AM [facility] For Patients: As a result of the Cures Act, medical imaging exams and procedure reports are released immediately into your electronic medical record. You may view this report before your referring provider. If you have questions, please contact your health care provider. EXAM: US VEIN MAPPING UPPER EXTREMITY BILATERAL LOCATION: [facility] DATE: 04/28/2024 INDICATION: Graft suitability COMPARISON: None. [...] US VEIN MAPPING UPPER EXTREMITY BILATERAL LOCATION: [facility] DATE: 04/28/2024 INDICATION: Graft suitability COMPARISON: None. [...] thrombophlebitis of the right cephalic vein at [facility]. 2. Bilateral upper extremity cephalic and basilic vein measurements asabove. 3. Patent bilateral upper extremity subclavian, brachial and radialarteries. The right upper extremity arteries demonstrate monophasicwaveforms which raises concern for a mild inflow stenosis. us Derick ACKERMAN US Final Res ult * IR CENTRAL VENOUS ACCESS/PORT (04/28/2024 10:48 AM [facility]) Anatomical Region Laterality Modality X-Ray Angiograph y, Other, Other 04/28/2024 10:4 8 AM [facility] Impressions 04/28/2024 2:21 PM [facility] Ultrasound and fluoroscopic guided placement of tunneled 19 cm tip to cuff, right internal jugular dialysis catheter. Narrative 04/28/2024 2:21 PM [facility] For Patients: As a result of the Cures Act, medical imaging exams and procedure reports are released immediately into your electronic medical record. You may view this report before your referring provider. If you have questions, please contact your health care provider. [facility] EXAM: TUNNELED CENTRAL VENOUS CATHETER PLACEMENT LOCATION: [facility] CLINICAL HISTORY: The patient has a history [...] observer. The physician spent 12 minutes of [id number] moderate sedation time with the patient. ADDITIONAL [...] questions, please contact your health care provider. [facility] EXAM: TUNNELED CENTRAL VENOUS CATHETER PLACEMENT LOCATION: [facility] CLINICAL HISTORY: The patient has a history [...] trained observer. The physicianspent 12 minutes of yinw-[id number]-hape moderate sedation time with thepatient. ADDITIONAL MEDICATIONS: [...] tocuff, right internal jugular dialysis catheter. Zaheer aVlerio MD IR Final Result * (ABNORMAL) ANTI HCV (04/28/2024 5:01 AM [facility]) HEPATITIS C ANTIBODY Reactive, Preliminary Positive(A) Non-React odette 04/28/2024 9:46 AM [facility] Comment:Presumptive evidence of antibodies to HCV. Reflexed to HCV RNA Quant (See separate report). Blood BLOOD SPECIMEN / Unknown Venipuncture / Unknown 04/28/2024 5:01 AM [facility] 04/28/2024 5:17 AM [facility] Zaheer Valerio MD SEND OUTS Final Result [facility] [address] [place] [address], [place] * ANTI HBS QUANT AHS (04/28/2024 5:01 AM [facility]) ANTI HBS QUANT <3.50 mIU/mL 04/28/2024 10:01 AM [facility] Blood BLOOD SPECIMEN / Unknown Venipuncture / Unknown 04/28/2024 5:01 AM [facility] 04/28/2024 5:17 AM [facility] Narrative [facility] - 04/28/2024 10:01 AM [facility] <8.5 Considered not immune to HBV infection. [...] SEND OUTS Final Result Performing Organization Address City/[facility]/ZIP Co de Phone Number [facility] [address] [place] [address], [place] * (ABNORMAL) ANTI HBC (04/28/2024 5:01 AM [facility]) ANTI HBC Reactive( A) Non-React odette 04/28/2024 10:01 AM [facility] Comment:Anti-HBc detected. P resumptive evidence of HBV infection. Order Anti-HBc IgM if acute infection suspected. Blood BLOOD SPECIMEN / Unknown Venipuncture / Unknown 04/28/2024 5:01 AM [facility] 04/28/2024 5:17 AM [facility] Zaheer Valerio MD SEND OUTS Final Result [facility] [address] [place] [address], [place] * SCAN-OPERATIVE/PROCEDURE REPORT (04/28/2024 12:00 AM [facility]) Narrative 04/28/2024 12:00 AM [facility] Ordered by an unspecified provider. Other Clinical Staff OTHER Final Resul t * PROTIME-INR (04/27/2024 2:04 PM [facility]) INR 1.1 <1.3 04/27/2024 2:20 PM [facility] PROTIME 12.1 10.6 - 12.4 sec 04/27/2024 2:20 PM [facility] Blood BLOOD SPECIMEN / Unknown IV Start / Unknown 04/27/2024 2:04 PM [facility] 04/27/2024 2:09 PM [facility] - 04/27/2024 2:20 PM [facility] Therapeutic Range 2.0-3.0 for most anticoagulated patients [...] [facility]. Zaheer Valerio MD HEMATOLOGY Final Result [facility] INTER[place] ZIP [id number] [place] [address] * (ABNORMAL) PTH,INTACT (04/27/2024 2:04 PM [facility]) CALCIUM 8.4(L) 8.8 - 10.4 mg/dL 04/27/2024 9:16 PM [facility] Comment: Reference ranges for this test were updated on 03/30/2024 to reflect our healthy population more accurately. Reference range changes are not retroactively applied to results, but previous results using the same methodology can be interpreted in the context of the new reference range. PTH,INTACT 397.0(H) 15.0 - 69.0 pg/mL 04/27/2024 9:16 PM [facility] [employer] [employer] Blood BLOOD SPECIMEN / Unknown IV Start / Unknown 04/27/2024 2:04 PM [employer] [employer] 04/27/2024 2:09 PM [employer] Zaheer Valerio MD SEND OUTS Final Result [facility] [address] [place] [address], [place] * CK TOTAL (04/27/2024 2:04 PM [employer] [employer]) CK,TOTAL 103 39 - 308 IU/L 04/27/2024 2:37 PM [employer] [facility] Blood BLOOD SPECIMEN / Unknown IV Start / Unknown 04/27/2024 2:04 PM [employer] 04/27/2024 2:09 PM [employer] Zaheer Valerio MD CHEMISTRY Final Result [facility] [address] [id number] [address] [place] [address] * CALCIUM IONIZED HOSPITAL DRAW ONLY (04/27/2024 2:04 PM [employer] [employer]) [facility] CALCIUM,IONIZE D 1.18 1.15 - 1.27 mmol/L 04/27/2024 2:16 PM [employer] [facility] Blood BLOOD SPECIMEN / Unknown IV Start / Unknown 04/27/2024 2:04 PM [employer] 04/27/2024 2:10 PM [employer] Zaheer Valerio MD CHEMISTRY Final Result [facility] [address]NAL [address] [id number] [address] [place] [address] * SCAN CORRESP-LABORATORY RESULTS (04/26/2024 4:06 PM [employer] [employer]) Narrative 04/26/2024 4:06 PM [employer] [employer] Ordered by an unspecified provider. Other Clinical Staff OTHER Final Resul t * ECHO TTE COMPLETE W CONTRAST (04/26/2024 2:06 PM [employer]) EJECTION FRACTION 51% PROSOLV Anatomical Region Laterality Modality Ultrasound 04/26/2024 1:27 PM [employer] Narrative 04/26/2024 2:52 PM [employer] [employer] [place] [facility] [address], [address], [place] [address] Main: [email or web address] Echo Report PAGEBARON ID: [id number] Age: 63 : 1960 Ordering Provider: WARD DUNCAN Exam Date: 04/26/2024 13:27 Gender: M Clerk Operator: AKHIL Height: 68 in BSA: 1.65 m BP: 127 / 69 Weight: 121 lbs BMI: 18.4 kg/m HR: 94 Site: [facility] Location: Inpatient (Portable) Rhythm: Regular Procedure Components: 2D imaging with contrast, Color Doppler, Spectral Doppler Indications: Heart failure, unspecified Technical Quality: Contrast: Definity [facility]#: [id number] Final Conclusion Bi-plane Calculated EF: 51% Technically [...] ZScore: 1.60 Charisma Alcocer MD (Electronically Signed) [facility] Accredited Site Final Date: 26 April 2024 14:51 ICD-10 Codes: 428.9 Procedure Note Charisma Alcocer MD - 04/26/2024 [facility] [place] [facility] [address], [address], [place] [address] Main: [email or web address] Echo Report BARON DUENAS Bjorn ID: [id number] Age: 63 : 1960 Ordering Provider:WARD DUNCAN Exam Date: 04/26/2024 13:27 Gender: M Clerk Operator: AKHIL Height: 68 in BSA: 1.65 m BP: 127 / 69 Weight: 121 lbs BMI: 18.4 kg/m HR: 94 Site: [facility] Location: Inpatient (Portable) Rhythm: Regular Procedure Components: 2D imaging with contrast, Color Doppler, SpectralDoppler Indications: Heart failure, unspecified Technical Quality: Contrast: Definity [facility]#: [id number] Final Conclusion Bi-plane Calculated EF: 51% Technically [...] ZScore: 1.60 Charisma Alcocer MD (Electronically Signed) [facility] Accredited Site Final Date: 26 April 2024 14:51 ICD-10 Codes: 428.9 Ward Shah Brody DO ECHO ORD Final Result * XR CHEST 2 VIEWS PA AND LATERAL (04/26/2024 12:36 PM [employer] [employer]) Anatomical Region Laterality Modality CHEST, THORAX, Lung, HEART Digit al Radiography 04/26/2024 12:3 6 PM [employer] Impressions 04/26/2024 1:13 PM [employer] Hazy opacity projecting over the right lower lung likely reflect areas of consolidation in the right lower lobe. Minimal left basilar atelectasis. No pleural fluid. Normal heart size and pulmonary vascularity. Narrative 04/26/2024 1:13 PM [employer] [employer] For Patients: As a result of the Cures Act, medical imaging exams and procedure reports are released immediately into your electronic medical record. You may view this report before your referring provider. If you have questions, please contact your health care provider. EXAM: XR CHEST 2 VIEWS PA AND LATERAL LOCATION: [facility] DATE: 04/26/2024 INDICATION: Shortness of breath. COMPARISON: [...] CHEST 2 VIEWS PA AND LATERAL LOCATION: [facility] DATE: 04/26/2024 INDICATION: Shortness of breath. COMPARISON: Chest film 05/19/2023. IMPRESSION: Hazy opacity projecting over the right lower lung likely reflect areas ofconsolidation in the right lower lobe. Minimal left basilar atelectasis.No pleural fluid. Normal heart size and pulmonary vascularity. us Zaheer Valerio MD GENERAL IMAGING Final Result * SCAN-CARDIAC STRIP (04/25/2024 2:58 PM [employer]) us Scanner OTHER Final Result from Last [address] 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 05/18/23
[2024-07-08 20:39] LABS: Basophils Percent Auto 0.5 % (0.0-3.0); Eosinophils Percent Auto 4.9 % (0.0-7.0); Hematocrit 37.7 % (37.0-53.0); Hemoglobin* 11.3 gm/dL (13.5-17.5); Immature Granulocytes Pct Auto 0.7 %; Lymphocytes Percent Auto 31.3 % (20-44); Mean Corpuscular HGB Conc 30 gm/dL (32-36); Mean Corpuscular Hemoglobin 33 pg (26-34); Mean Corpuscular Volume 109 fL (80-100); Monocytes Percent Auto 5.1 % (0.0-11.0); Neutrophils Percent Auto 57.5 % (42.0-72.0); PCO2 VBG 94 mmHG (40-50); Platelet Count* 286 K/uL (140-440); RDW Coefficient of Variation % 15.7 % (11.5-15.5); Red Blood Count 3.47 m/uL (4.30-5.90); White Blood Count* 12.75 K/uL (4.50-11.00); pH VBG 6.925 (7.32-7.43)
[2024-07-08 20:40] LABS: HCO3 VBG 20 mmol/L (21-28); Slide Review Reflex No
[2024-07-08] MEDS: KETAMINE HCL 100 MG/ML inj 50 MG IVP (20:43)
[2024-07-08] MEDS: propofoL 1,000 MG/100 ML ML 12.6 MG IVPB (20:45)
[2024-07-08] MEDS: PROPOFOL 10 MG/ML INJ 100 MG IVP (20:45)
--- NOTE | 2024-07-08 20:47 | ED.GENADULT ---
HPI - General Adult General Date Seen: 07/08/24 Chief complaint: Fall/Minor Trauma Stated complaint: Difficulty breathing. Time Seen by Provider: 07/08/24 20:31 Source: EMS Mode of arrival: EMS Limitations: altered mental status History of Present Illness HPI narrative: The ED doctors were called to patient's bedside in stab 1 on arrival. Patient called EMS tonight due to difficulty breathing. He EMS found him in his apartment hunched over a small TV on the floor, he was alert and conversive in route but spitting on the floor in the ambulance. His apartments mild of cigarettes. He reportedly had done some drugs with his buddies, further details not known. He has COPD and is a dialysis patient. His identity was not known on arrival. When they were moving him from the ambulance cot to the ED bed, patient went unresponsive. We came into the scene of nursing staff attempting to find IV site, they had a mask and were assisted breathing. Patient still had a pulse that was bradycardic in the 40s and 50s initially, did go down to the 20s and 30s. They were trying to find an IV site. I set up for intubation and was able to intubate without any medicines using the glide scope. His cords were easily visualized, 7 0 tube was placed without difficulty, balloon was blown up with 10 mL air. He had capnography and pulse oximetry, cardiac monitoring, routine blood pressure monitoring. His initial blood pressure was 53/33. They could not find any peripheral IV, IO was placed. Patient did start to regain consciousness, was bucking the tube. He had good capnography, bilateral breath sounds. He initially got 50 mg intraosseous ketamine. A L of IV fluid was started on his intra os this site. Eventually a peripheral site was found and 500 mL normal saline bag was hung at O to keep the site open. He also received a bolus of 100 mg of propofol fall, propofol drip was started. He did receive 50 mcg IV fentanyl for some initial pain control after intubation, needed further management. His portable chest x-ray looked congested, potential infiltrate, ET tube difficult to see exactly where his abiodun was on this imaging but did not look too far down, patient had good bilateral breath sounds. His coloration was improving, was noted to be awake for while after the intubation but before we were able to establish good IV site and get adequate medication on board. Did order Zosyn 3.375 mg IV. Respiratory therapy was eventually here in did get patient placed on vent. Srivastava catheter was placed. Related Data Home Medications ?Medication ?Instructions ?Recorded ?Confirmed carvedilol 12.5 mg tablet 6.25 mg PO BID 05/18/23 05/17/24 aspirin 81 mg chewable tablet 1 tab PO DAILY 05/17/24 05/17/24 atorvastatin 40 mg tablet 40 mg PO QPM 05/17/24 05/17/24 bumetanide 2 mg tablet 2 mg PO DAILY 05/17/24 05/17/24 multivitamin with folic acid 400 1 tab PO DAILY 05/17/24 05/17/24 mcg tablet (Daily-Ernestina (with folic acid)) Allergies Allergy/AdvReac Type Severity Reaction Status Date / Time ranitidine AdvReac itch Verified 05/17/24 07:38 Review of Systems Status of ROS: Reports: unobtainable due to medical condition [facility] Medical History Altered mental status ?R41.82 - Altered mental status, unspecified (ICD-10) Non-STEMI (non-ST elevated myocardial infarction) ?I21.4 - Non-ST elevation (NSTEMI) myocardial infarction (ICD-10) Smoking ?F17.200 - Nicotine dependence, unspecified, uncomplicated (ICD-10) Alcohol use disorder ?F10.90 - Alcohol use, unspecified, uncomplicated (ICD-10) COPD (chronic obstructive pulmonary disease) ?J44.9 - Chronic obstructive pulmonary disease, unspecified (ICD-10) Coronary artery disease ?I25.10 - Atherosclerotic heart disease of [place] coronary artery without angina pectoris (ICD-10) Stage 4 chronic kidney disease ?N18.4 - Chronic kidney disease, stage 4 (severe) (ICD-10) Pulmonary hypertension ?I27.20 - Pulmonary hypertension, unspecified (ICD-10) Right heart failure ?I50.810 - Right heart failure, unspecified (ICD-10) Heart failure with reduced ejection fraction ?I50.20 - Unspecified systolic (congestive) heart failure (ICD-10) Social History Narrative: Patient apparently lives in an apartment in [place]. Smokes a pack of cigarettes a day. He has a history of alcohol abuse but current consumption is unknown. Unable to discuss plan of care or goals of care What is your current living situation?: unable to answer Problems where you live: unable to answer Problems where you live details: unknown In the past 12 months, utilities in danger of being shut off: unable to answer In past 12 months, lack of transportation kept you from medical appts, meetings, work, or getting things needed for daily living: unable to answer In the past 12 mos, have been you worried that your food would run out before you had money to buy more?: unable to answer In the past 12 mos, the food you bought just didn't last and you didn't have money to buy more?: unable to answer Highest level of school completed/degree received: don't know Smoking Status: Current every day smoker Do you use any of these nicotine containing products: None Second hand tobacco smoke exposure: Yes How often do you have a drink containing alcohol: 4 or more times a week AUDIT-C Alcohol total score: 4 Non-prescribed substance use: denies use Non-prescribed substance use details: unknown How often does anyone, including family, friends and others, physically hurt you: unable to answer How often does anyone, including family, friends and others, insult or talk down to you: unable to answer How often does anyone, including family, friends and others, threaten you with harm: unable to answer How often does anyone, including family, friends and others, scream or curse at you: unable to answer service: No Exam Const: Vital Signs, click to edit/add: Vital Signs - 24 hr 07/08/24 20:25 07/08/24 20:41 07/08/24 20:42 Temperature 97 F L Pulse Rate Pulse Rate [Femora l] 44 L Respiratory Rate 0 L 38 H 19 Blood Pressure 167/87 H Blood Pressure [Le ft Upper Arm] 58/23 L Pulse Oximetry 100 Oxygen Delivery Me thod Ambu-Bag Intubated 07/08/24 20:45 07/08/24 20:46 07/08/24 20:47 Temperature Pulse Rate 87 91 Pulse Rate [Femora l] Respiratory Rate 23 20 28 H Blood Pressure 154/77 H Blood Pressure [Le ft Upper Arm] Pulse Oximetry 100 99 Oxygen Delivery Me thod 07/08/24 21:00 07/08/24 21:02 07/08/24 21:03 Temperature Pulse Rate 89 91 90 Pulse Rate [Femora l] Respiratory Rate 23 24 27 H Blood Pressure 167/81 H Blood Pressure [Le ft Upper Arm] Pulse Oximetry 98 98 99 Oxygen Delivery Me thod Intubated 07/08/24 21:15 07/08/24 21:17 07/08/24 21:30 Temperature Pulse Rate 88 85 86 Pulse Rate [Femora l] Respiratory Rate 20 21 20 Blood Pressure 158/74 H Blood Pressure [Le ft Upper Arm] Pulse Oximetry 98 98 98 Oxygen Delivery Me thod 07/08/24 21:32 07/08/24 21:45 07/08/24 21:46 Temperature Pulse Rate 86 86 86 Pulse Rate [Femora l] Respiratory Rate 17 15 18 Blood Pressure 154/74 H 166/79 H Blood Pressure [Le ft Upper Arm] Pulse Oximetry 98 99 99 Oxygen Delivery Me thod 07/08/24 22:00 07/08/24 22:02 07/08/24 22:15 Temperature Pulse Rate 87 87 85 Pulse Rate [Femora l] Respiratory Rate 22 20 Blood Pressure 174/90 H Blood Pressure [Le ft Upper Arm] Pulse Oximetry 99 99 98 Oxygen Delivery Me thod Intubated 07/08/24 22:17 07/08/24 22:30 07/08/24 22:32 Temperature Pulse Rate 86 83 83 Pulse Rate [Femora l] Respiratory Rate 21 41 H 42 H Blood Pressure 164/83 H 156/82 H Blood Pressure [Le ft Upper Arm] Pulse Oximetry 98 98 98 Oxygen Delivery Me thod Cool mottled appearing patient being assisted with ventilation, not making good air movement into his lungs. He was bradycardic without significant murmur. Not moving arms and legs, sought no traumatic changes to arms or legs. Abdomen looked flat. After intubation and before IV medicines could be given adequately, patient did wake up, was looking around, biting on the tube. His coloration improved. Did have some minimal arm and leg movement per staff. I did not witness any movement. Documenting provider has reviewed patient's vital signs: yes Course Reevaluation(s) Time of Reevaluation #1: 21:08 Reevaluation #1: The lab is redrawn patient's potassium. His blood was significantly hemolyzed. We need to have his potassium before transfer. Nursing staff has asked for p.r.n. of fentanyl. He seems to be nicely sedated for the most part at this time with propofol drip. Time of Reevaluation #2: 21:32 Reevaluation #2: Potassium is come back at 4.6 on redraw. Patient had a initial hemolysis on his for specimen and is not an accurate potassium. We will be able to transfer at this time [place] [facility] [place] definitive cares. Time of Reevaluation #3: 22:02 Reevaluation #3: Nursing staff placed an OG tube, they had appropriate pH on testing. They did do imaging and I have looked at this portable abdominal film. Looks like the tube is in the stomach below the diaphragm. Nursing staff will operations superintendent to low intermittent suction. Consultations Consultation #1: Have contacted [facility], staff are trying to look at all potential ICU facilities with dialysis (nothing at [facility] already known). Spoke with Dr. Bowser. They were able to take this patient but he wants to ensure no hyperkalemia, needs me to treat hyperkalemia if patient has this prior to transfer. We will make sure that we know his potassium result before he enters on the road. Time: 20:53 Vital Signs Vital signs: Initial Vital Signs Temperature 97 F L 07/08/24 20:25 Temperature Source Temporal Artery Scan 07/08/24 20:25 Pulse Rate 44 L 07/08/24 20:25 Pulse Strength 1+ Faint 07/08/24 20:25 Respiratory Rate 0 L 07/08/24 20:25 Blood Pressure 58/23 L 07/08/24 20:25 Blood Pressure Mean 34 L 07/08/24 20:25 Oxygen Delivery Method Ambu-Bag 07/08/24 20:25 Vital Signs Temperature 97 F L 07/08/24 20:25 Pulse Rate 44 L 07/08/24 20:25 Respiratory Rate 0 L 07/08/24 20:25 Blood Pressure 58/23 L 07/08/24 20:25 Oxygen Delivery Method Ambu-Bag 07/08/24 20:25 Temperature 97 F L 07/08/24 20:25 Pulse Rate 83 07/08/24 22:32 Respiratory Rate 42 H 07/08/24 22:32 Blood Pressure 156/82 H 07/08/24 22:32 Pulse Oximetry 98 07/08/24 22:32 Oxygen Delivery Method Intubated 07/08/24 22:00 Medications Administered Medications: Generic Name Dose Route Start Last Admin Trade Name Freq PRN Reason Stop Dose Admin Fentanyl 25 mcg 07/08/24 21:08 07/08/24 22:30 Fentanyl 100 Mcg/2 Ml Inj IVP 25 mcg Q30M PRN Administration pain Sodium Chloride 1,000 mls @ 35 mls/hr 07/08/24 20:43 07/08/24 21:19 0.9 % Sodium Chloride 1000 Ml IV Not Given .Q24H KAYLA Propofol 1,000 mg in 100 mls @ 10.5 mls/hr 07/08/24 20:44 07/08/24 22:00 Propofol IVPB 90 mcg/kg/min CONT PRN 37.8 mls/hr Infusion 25 MCG/KG/MIN Discontinued Medications Generic Name Dose Route Start Last Admin Trade Name Freq PRN Reason Stop Dose Admin Fentanyl 50 mcg 07/08/24 20:44 07/08/24 20:50 Fentanyl 100 Mcg/2 Ml Inj IVP 07/08/24 20:45 50 mcg ONCE ONE Administration Piperacillin Sod/Tazobactam 100 mls @ 200 mls/hr 07/08/24 20:30 07/08/24 21:30 Sod 3.375 gm/ Sodium Chloride IVPB 07/08/24 20:31 Infused ONCE ONE Infusion Sodium Chloride 1,000 mls @ 1,000 mls/hr 07/08/24 20:43 07/08/24 21:18 0.9 % Sodium Chloride 1000 Ml IV 07/08/24 21:42 Infused .Q1H KAYLA Infusion Ketamine HCl 50 mg 07/08/24 20:43 07/08/24 20:43 Ketamine Hcl 100 Mg/Ml Inj IVP 07/08/24 20:44 50 mg ONCE ONE Administration Methylprednisolone Sodium Succinate 125 mg 07/08/24 20:43 07/08/24 20:55 Methylprednisolone Sod Succ 62.5 Mg/Ml (125) IVP 07/08/24 20:44 125 mg ONCE ONE Administration Propofol 100 mg 07/08/24 20:43 07/08/24 20:45 Propofol 10 Mg/Ml Inj IVP 07/08/24 20:44 100 mg ONCE ONE Administration Medical Decision Making Lab Data Lab results reviewed: Yes I reviewed the patient's lab results Lab results narrative: Repeat potassium is 4.6, his 1st specimen was hemolyzed with the 6.8 potassium. Troponin, magnesium, urine toxicology, triple viral swab are all pending. Labs: Lab Results 07/08/24 07/08/24 07/08/24 Range/Units 20:29 20:34 20:45 WBC 12.75 H (4.50-11.00) K/uL RBC 3.47 L (4.30-5.90) m/uL Hgb 11.3 L (13.5-17.5) gm/dL Hct 37.7 (37.0-53.0) % MCV 109 H (80-100) fL MCH 33 (26-34) pg MCHC 30 L (32-36) gm/dL RDW Coeff of Martir 15.7 H (11.5-15.5) % Plt Count 286 (140-440) K/uL Neut % (Auto) 57.5 (42.0-72.0) % Lymph % (Auto) 31.3 (20-44) % [place] % (Auto) 5.1 (0.0-11.0) % Eos % (Auto) 4.9 (0.0-7.0) % Baso % (Auto) 0.5 (0.0-3.0) % Neut # (Auto) 7.30 H (1.7-7.0) K/uL Lymph # (Auto) 4.00 H (0.90-2.90) K/uL [place] # (Auto) 0.70 (0.00-0.90) K/UL Eos # (Auto) 0.60 H (0.00-0.50) K/uL Baso # (Auto) 0.10 (0.00-0.30) K/uL Abs Immat Gran (auto) 0.10 (0.00-0.30) K/uL Imm/Tot Granulo (auto) 0.7 % INR 1.09 (0.91-1.10) VBG pH 6.925 L* (7.32-7.43) VBG pCO2 94 H* (40-50) mmHG VBG pO2 32.0 (25-47) mmHG VBG HCO3 20 L (21-28) mmol/L Sodium 136 (135-149) mmol/L Potassium 4.6 (3.6-5.1) mmol/L Chloride 106 (96-114) mmol/L Carbon Dioxide 12 L (20-32) mmol/L Anion Gap 18 H (7-15) mEq/L BUN 43 H (7-30) mg/dL Creatinine 6.4 H (0.5-1.5) mg/dL Estimated GFR 9 ml/min Glucose 294 H (60-115) mg/dL Lactate 6.0 H* (0.5-1.9) mmol/L Calcium 8.1 L (8.4-10.6) mg/dL Magnesium (1.5-2.6) mg/dL Total Bilirubin 0.7 (0.1-1.5) mg/dL AST 39 H (12-35) U/L ALT 14 (4-50) U/L Alkaline Phosphatase 117 (40-150) U/L Troponin I (0.01-0.04) ng/mL Total Protein 7.1 (6.0-8.3) g/dL Albumin 4.3 (3.3-5.0) g/dL Gastric Fluid pH Urine Opiates Screen (Negative) Ur Oxycodone Screen (Negative) Urine Methadone Screen (Negative) Ur Barbiturates Screen (Negative) U Tricyclic Antidepress (Negative) Ur Phencyclidine Scrn (Negative) Ur Amphetamines Screen (Negative) U Methamphetamines Scrn (Negative) U Benzodiazepines Scrn (Negative) Urine Cocaine Screen (Negative) U Marijuana (THC) Screen (Negative) Ur Drug Screen Comment Ethyl Alcohol (0.01-0.03) % SARS-CoV-2 (PCR) Negative SARS-CoV-2 (Negative) Influenza Type A (PCR) Negative PCR FLU A (Negative) Influenza Type B (PCR) Negative PCR FLU B (Negative) RSV (PCR) Negative PCR RSV (Negative) Lab Acknowledgement Test Added 07/08/24 07/08/24 07/08/24 Range/Units 20:46 21:00 21:10 WBC (4.50-11.00) K/uL RBC (4.30-5.90) m/uL Hgb (13.5-17.5) gm/dL Hct (37.0-53.0) % MCV (80-100) fL MCH (26-34) pg MCHC (32-36) gm/dL RDW Coeff of Martir (11.5-15.5) % Plt Count (140-440) K/uL Neut % (Auto) (42.0-72.0) % Lymph % (Auto) (20-44) % [place] % (Auto) (0.0-11.0) % Eos % (Auto) (0.0-7.0) % Baso % (Auto) (0.0-3.0) % Neut # (Auto) (1.7-7.0) K/uL Lymph # (Auto) (0.90-2.90) K/uL [place] # (Auto) (0.00-0.90) K/UL Eos # (Auto) (0.00-0.50) K/uL Baso # (Auto) (0.00-0.30) K/uL Abs Immat Gran (auto) (0.00-0.30) K/uL Imm/Tot Granulo (auto) % INR (0.91-1.10) VBG pH (7.32-7.43) VBG pCO2 (40-50) mmHG VBG pO2 (25-47) mmHG VBG HCO3 (21-28) mmol/L Sodium (135-149) mmol/L Potassium (3.6-5.1) mmol/L Chloride (96-114) mmol/L Carbon Dioxide (20-32) mmol/L Anion Gap (7-15) mEq/L BUN (7-30) mg/dL Creatinine (0.5-1.5) mg/dL Estimated GFR ml/min Glucose (60-115) mg/dL Lactate (0.5-1.9) mmol/L Calcium (8.4-10.6) mg/dL Magnesium 2.0 (1.5-2.6) mg/dL Total Bilirubin (0.1-1.5) mg/dL AST (12-35) U/L ALT (4-50) U/L Alkaline Phosphatase (40-150) U/L Troponin I 0.04 (0.01-0.04) ng/mL Total Protein (6.0-8.3) g/dL Albumin (3.3-5.0) g/dL Gastric Fluid pH Urine Opiates Screen Negative (Negative) Ur Oxycodone Screen Negative (Negative) Urine Methadone Screen Negative (Negative) Ur Barbiturates Screen Negative (Negative) U Tricyclic Antidepress Negative (Negative) Ur Phencyclidine Scrn Negative (Negative) Ur Amphetamines Screen Negative (Negative) U Methamphetamines Scrn Negative (Negative) U Benzodiazepines Scrn Negative (Negative) Urine Cocaine Screen Negative (Negative) U Marijuana (THC) Screen POSITIVE A (Negative) Ur Drug Screen Comment See Note Ethyl Alcohol < 0.00 L (0.01-0.03) % SARS-CoV-2 (PCR) (Negative) Influenza Type A (PCR) (Negative) Influenza Type B (PCR) (Negative) RSV (PCR) (Negative) Lab Acknowledgement Test Added 07/08/24 Range/Units 21:50 WBC (4.50-11.00) K/uL RBC (4.30-5.90) m/uL Hgb (13.5-17.5) gm/dL Hct (37.0-53.0) % MCV (80-100) fL MCH (26-34) pg MCHC (32-36) gm/dL RDW Coeff of Martir (11.5-15.5) % Plt Count (140-440) K/uL Neut % (Auto) (42.0-72.0) % Lymph % (Auto) (20-44) % [place] % (Auto) (0.0-11.0) % Eos % (Auto) (0.0-7.0) % Baso % (Auto) (0.0-3.0) % Neut # (Auto) (1.7-7.0) K/uL Lymph # (Auto) (0.90-2.90) K/uL [place] # (Auto) (0.00-0.90) K/UL Eos # (Auto) (0.00-0.50) K/uL Baso # (Auto) (0.00-0.30) K/uL Abs Immat Gran (auto) (0.00-0.30) K/uL Imm/Tot Granulo (auto) % INR (0.91-1.10) VBG pH (7.32-7.43) VBG pCO2 (40-50) mmHG VBG pO2 (25-47) mmHG VBG HCO3 (21-28) mmol/L Sodium (135-149) mmol/L Potassium (3.6-5.1) mmol/L Chloride (96-114) mmol/L Carbon Dioxide (20-32) mmol/L Anion Gap (7-15) mEq/L BUN (7-30) mg/dL Creatinine (0.5-1.5) mg/dL Estimated GFR ml/min Glucose (60-115) mg/dL Lactate (0.5-1.9) mmol/L Calcium (8.4-10.6) mg/dL Magnesium (1.5-2.6) mg/dL Total Bilirubin (0.1-1.5) mg/dL AST (12-35) U/L ALT (4-50) U/L Alkaline Phosphatase (40-150) U/L Troponin I (0.01-0.04) ng/mL Total Protein (6.0-8.3) g/dL Albumin (3.3-5.0) g/dL Gastric Fluid pH 4.5 Urine Opiates Screen (Negative) Ur Oxycodone Screen (Negative) Urine Methadone Screen (Negative) Ur Barbiturates Screen (Negative) U Tricyclic Antidepress (Negative) Ur Phencyclidine Scrn (Negative) Ur Amphetamines Screen (Negative) U Methamphetamines Scrn (Negative) U Benzodiazepines Scrn (Negative) Urine Cocaine Screen (Negative) U Marijuana (THC) Screen (Negative) Ur Drug Screen Comment Ethyl Alcohol (0.01-0.03) % SARS-CoV-2 (PCR) (Negative) Influenza Type A (PCR) (Negative) Influenza Type B (PCR) (Negative) RSV (PCR) (Negative) Lab Acknowledgement Imaging Data Chest x-ray: Attestation: I have reviewed the pertinent imaging results. My impression: Did visualize his portable chest x-ray after was taken, endotracheal tube is above the abiodun, do not see any main stem but difficult to see where the bronchi branch off. Await Radiology over-read. Radiologist's impression: Patient: BARON DUENAS Facility:?[facility] Patient ID:?[id number] Site Patient ID:?[id number]. Site :?[id number] Study:?XRay-Chest 1V-07/08/2024 8:36:00 PM Ordering Physician:Meredith Light Final Report: Indication: Intubation Technique: Chest 1 view Comparison: Chest x-ray 06/25/2024 Findings/Impression: Cardiovascular and mediastinum: Upper normal heart size with right internal jugular line with tip at the cavoatrial junction. Endotracheal tube with tip at the mid tracheal level. Lungs and pleural space: Masslike opacity redemonstrated within the right lung base with increased interstitial and alveolar process within both lungs suggesting pulmonary edema. No pneumothorax. Bones and soft tissues: Old right rib fractures. Dictated by Ole Schwartz MD @ 07/08/2024 8:42:36 PM (Electronic Signature) Abdominal x-ray: Attestation: I have reviewed the pertinent imaging results. Radiologist's impression: Patient: BARON DUENAS Facility:?[facility] Patient ID:?[id number] Site Patient ID:?[id number]. Site :?[id number] Study:?XRay-Abdomen/Pelvis 1V-07/08/2024 10:08:15 PM Ordering Physician:?Ousmane Light Final Report: Indication: Post OG tube placement. Technique: Abdomen single frontal view. Comparison: None. Findings: Bowel: Enteric tube course suggests that both tip and side port terminate in the stomach. The tube appears to overlie the left lung base, but this is favored projectional. Nonobstructive bowel gas pattern. Other: No definite signs of free air. Osseous structures are unremarkable for age. Surgical clips adjacent to the right lumbar spine. Impression: Enteric tube most likely terminates in the stomach. While the tube appears to overlie the left lung base, this is most likely projectional. Repeat imaging taken more superiorly could confirm this, if clinically indicated. Dictated by Martinez Gilmore MD @ 07/08/2024 10:17:49 PM (Electronic Signature) ECG Data Attestation: I personally reviewed and interpreted this ECG as follows: (Normal sinus rhythm, 87 beats per minute. Prolonged QT at 524 milliseconds.) Critical Care Time Critical Care Time Critical Care Time: Yes Attestation: The patient required my highest level preparedness to intervene emergently and I personally spent this critical care time directly and personally managing the patient. This critical care time included: Obtaining a history; Examining the patient; Pulse oximetry; Ordering and reviewing of studies; Arranging urgent treatment with development of a management plan; Evaluation of patients response to treatment; Frequent reassessment discussions with other providers. This critical care time was performed to assess and manage the high probability of imminent life-threatening deterioration that could result in multiorgan failure. It was exclusive of separate billable procedures and treating other patients and teaching time. Total Critical Care Time in Minutes: 140 Discharge Plan Discharge Clinical Impression: Respiratory failure with hypoxia and hypercapnia, Airway intubation performed without difficulty, Dialysis patient Patient Disposition: [facility] Discharge Location: [facility] Condition: Critical
[2024-07-08] MEDS: fentaNYL 100 MCG/2 ML inj 50 MCG IVP (20:50)
[2024-07-08 20:51] LABS: Albumin* 4.3 g/dL (3.3-5.0); Chloride* 106 mmol/L (96-114); Sodium* 136 mmol/L (135-149)
[2024-07-08 20:54] LABS: Alanine Aminotransferase* 14 U/L (4-50); Alkaline Phosphatase* 117 U/L (40-150); Anion Gap 18 mEq/L (7-15); Aspartate Amino Transferase* 39 U/L (12-35); Bilirubin Total* 0.7 mg/dL (0.1-1.5); Blood Urea Nitrogen* 43 mg/dL (7-30); Carbon Dioxide* 12 mmol/L (20-32); Creatinine* 6.4 mg/dL (0.5-1.5); Estimated Glomerular Filt Rate 9 ml/min; Glucose* 294 mg/dL (60-115); INR 1.09 (0.91-1.10); Prothrombin Time 14.8 Seconds; Total Protein* 7.1 g/dL (6.0-8.3)
[2024-07-08 20:55] LABS: Calcium* 8.1 mg/dL (8.4-10.6)
[2024-07-08] MEDS: METHYLPREDNISOLONE SOD SUCC 62.5 MG/ML (125) 125 MG IVP (20:55)
[2024-07-08] MEDS: PIPERACILLIN/TAZOBACTAM 3.375 GM in 0.9 % SODIUM CHLORIDE Mini-bag 100 ML IVPB (21:00)
--- OUTSIDE RECORDS SUMMARY | 2024-07-08 21:02 | XMS_ITS | Clinical Summary ---
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 30 Tablet 05/25/2024 4:01 PM MANAGER TRACK 4 Active bumetanide (BUMEX) 2 mg tabletIndicatio ns:HFrEF (heart failure with reduced ejection fraction) (HC) Take 1 Tablet (2 mg) by mouth once daily in the morning. 30 Tablet 05/25/2024 4:01 PM MANAGER TRACK 4 Active carvediloL (COREG) 6.25 mg tabletIndicatio ns:HFrEF (heart failure with reduced ejection fraction) (HC),Hypertensi on Take 1 Tablet (6.25 mg) by mouth two times daily with meals. 60 Tablet 05/25/2024 4:01 PM MANAGER TRACK 4 Active multivitamin with folic acid 0.4 mg (Daily-Ernestina, with folic acid,) Take 1 Tablet by mouth once daily. Active amoxicillin-cla vulanate (AUGMENTIN) 500-125 mg tabletIndicatio ns:lower respiratory infection Take 1 Tablet by mouth once daily with a meal. 5 Tablet 05/25/2024 4:01 PM MANAGER TRACK 06/26/19 25 Discontinued( Pharmacist change per medication [...] Department Care Team Description 06/28/2024 Patient Outreach [facility] [address] [place] [address] Adrianna Collins, RN Student Primary RN Care Management (Lace score 60); Hospital F/U 06/25/2024 7:36 PM MANAGER TRACK - 06/26/2024 11:45 AM MANAGER TRACK Hospital Encounter [address] [place] [address] [facility], U Hospitalist Goldy Martinez, MD Francis Zuñiga Saadia Zafar, MD Discharge Disposition: Home Self Care 05/28/2024 Telephone [facility] [address] [place] [address] Shelia Dietrich, Results 05/27/2024 11:15 AM MANAGER TRACK Office Visit [facility] [address] [place] [address] Shelia Dietrich DO Hospital F/U (Has had several hospitalizations for heart failure and ESRD; most recently discharged on 05/26/24) 05/27/2024 Telephone [facility] [address] [place] [address] Ami Smith, RN Appointment (Arrange transportation with [facility]) 05/27/2024 Travel 05/27/2024 Patient Outreach [facility] [address] [place] [address] Deidra Bradley, JOSE LUIS Hospital F/U; Primary RN Care Management (LACE 80) 05/17/2024 3:04 PM MANAGER TRACK - 05/26/2024 4:30 PM MANAGER TRACK Hospital Encounter [address] [place] [address] Jaden Aguilar MBBS Wirt, Jena Nicole, DO Bratko, Kathryn Ann, MD Pogemiller, Charles Edward, MD [facility] Hospitalists Of Foot pain, bilateral (Primary Dx); Transportation insecurity; Other problems related to social environment; Lipid disorder; HFrEF (heart failure with reduced ejection fraction) (HC); Hypertension; Pneumonia due to infectious organism, unspecified laterality, unspecified part of lung Discharge Disposition: Home Self Care 05/17/2024 Travel 05/13/2024 Patient Outreach [facility] Care Management - Advanced Care Team [address] [place] [address] Katherine Carrera LICSW Chronic Kidney Disease (Engagement Outreach) 05/13/2024 Patient Outreach [facility] Management - Care Management Navigation/[facility] [address] [place] [address] Brii Hernandes Care Management Intake (Engagement Outreach/) 05/12/2024 Patient Outreach [facility] [address] [place] [address] Aparna Gilmore, RN Primary RN Care Management; Hospital F/U (LACE 64) 05/07/2024 Travel 05/06/2024 11:31 AM MANAGER TRACK - 05/11/2024 5:41 PM MANAGER TRACK Hospital Encounter [address] [address] [facility], U Hospitalist Arun Jurado MD Van Vranken, Benjamin Eugene, MBBS Maki, Mackenzie, MD ESRD (end stage renal disease) (HC) (Primary Dx); Transportation insecurity Discharge Disposition: Against Medical Advice or Discontinued Care 05/05/2024 Telephone [facility] [address] [place] [address] Shelia Dietrich, Concerns 05/03/2024 Patient Outreach [facility] [address] [place] [address] Aparna Gilmore, RN Primary RN Care Management; Hospital F/U (LACE 73) 04/28/2024 Travel 04/26/2024 Travel 04/26/2024 Refill [facility] [address] [place] [address] Shelia Dietrich, Refill Request (Carvedilol 25mg tablet, Furosemide 40mg tablet) 04/25/2024 2:39 PM MANAGER TRACK - 04/30/2024 2:37 PM MANAGER TRACK Hospital Encounter [facility] [address] [place] [address] Eileen Talavera DO Intensivists, [facility] Internal Ward Duncan DO Ponugoti, Krishna Chaitanya, MBBS Gunder, Adam Lee, MD HFrEF (heart failure with reduced ejection fraction) (HC) (Primary Dx); Hypertension; Dermatitis; CKD (chronic kidney disease) stage 5, GFR less than 15 ml/min (HC) Discharge Disposition: Home Self Care 04/20/2024 Refill [facility] [address] [place] [address] Shelia Dietrich DO Refill Request (Furosemide 40mg tablet) from Last 3 Months Immunizations Name Administration Dates Next Due COVID-19 VACCINE SPIKEVAX (M ODERNA 50MCG/0.5ML) 12YO+ PFS 05/08/2024 COVID-19 vaccine ([employer] NT[employer] 30mcg/0.3mL) 12YO+ BIVALENT PF, MDV 02/20/2022 COVID-19 vaccine ([employer] 30mcg/0.3mL) PF, MDV 04/04/2021,09/11/2020,08/21/2020 Hepatitis A [...] on file Legal Sex Male 4:18 PM MANAGER TRACK Gender Identity Not on file Sexual Orientation Not on file Obstetrics History Last Filed Vital Signs Vital Sign Reading Time Taken Comments Blood Pressure 159/88 06/26/2024 7:29 AM MANAGER TRACK Pulse 87 06/26/2024 7:36 AM MANAGER TRACK Temperature 36.5 C (97.7 F) 06/26/2024 7:29 AM MANAGER TRACK Respiratory Rate 18 06/26/2024 7:29 AM MANAGER TRACK Oxygen Saturation 91% 06/26/2024 7:29 AM MANAGER TRACK Inhaled Oxygen Concentration - - Weight 54.4 kg (120 lb) 06/25/2024 10:15 PM MANAGER TRACK Height 174 cm (5' 8.5) 05/17/2024 3:00 PM MANAGER TRACK Body Mass Index 17.98 05/17/2024 3:00 PM MANAGER TRACK Plan of Treatment Health Maintenance Due Date [...] Diagnosis Comments SCAN CORRESP-IMAGING 06/28/2024 3:02 PM MANAGER TRACK SCAN CORRESP-EKG RESULTS 06/28/2024 2:48 PM MANAGER TRACK SCAN-CARDIAC STRIP 06/26/2024 7: 56 AM MANAGER TRACK HBSAG (HBS) STAT 06/26/2024 7:16 AM MANAGER TRACK PLATELET COUNT Early AM 06/26/2024 7:16 AM MANAGER TRACK HEMOGLOBIN Early AM 06/26/2024 7:16 AM MANAGER TRACK WHITE BLOOD COUNT Early AM 06/26/2024 7:1 6 AM MANAGER TRACK MAGNESIUM Early AM 06/26/2024 7:16 AM MANAGER TRACK POTASSIUM Early AM 06/26/2024 7:16 AM MANAGER TRACK SODIUM Early AM 06/26/2024 7:16 AM MANAGER TRACK SCAN-CARDIAC STRIP 06/25/2024 8: 41 PM MANAGER TRACK HEMOGLOBIN Routine 05/27/2024 12:29 PM MANAGER TRACK Anemia of chronic renal failure, stage 5 (HC) BASIC METABOLIC PANEL Routine 05/27/2024 12:29 PM MANAGER TRACK Anemia of chronic renal failure, stage 5 (HC) VITAMIN D 25 (DEFICIENCY) Routine 05/27/2024 12:29 PM MANAGER TRACK Vitamin D deficiency POTASSIUM Early AM 05/25/2024 9:11 AM MANAGER TRACK SODIUM Early AM 05/25/2024 9:11 AM MANAGER TRACK WHITE BLOOD COUNT Early AM 05/25/2024 9:1 1 AM MANAGER TRACK PLATELET COUNT Early AM 05/25/2024 9:11 AM MANAGER TRACK HEMOGLOBIN Early AM 05/25/2024 9:[address] CHEST WO Routine 05/24/2024 1:53 PM MANAGER TRACK HBV REAL TIME PCR QUANT Today 05/20/2024 1:58 PM MANAGER TRACK RENAL FUNCTION PANEL Early AM 05/20/2024 1:58 PM MANAGER TRACK MAGNESIUM Early AM 05/20/2024 1:58 PM MANAGER TRACK CBC W PLT NO DIFF Early AM 05/20/2024 1:5 7 PM MANAGER TRACK PHOSPHORUS Early AM 05/19/2024 3:27 PM MANAGER TRACK MAGNESIUM Early AM 05/19/2024 3:27 PM MANAGER TRACK CBC W PLT NO DIFF Early AM 05/19/2024 3:2 7 PM MANAGER TRACK BASIC METABOLIC PANEL Early AM 05/19/2024 3:27 PM MANAGER TRACK GLUCOSE METER Timed 05/18/2024 11:30 PM MANAGER TRACK GLUCOSE METER Timed 05/18/2024 5:52 PM MANAGER TRACK HCV RT-PCR, QUANT (NON-GRAPH) Today 05/18/2024 10:30 AM MANAGER TRACK SCAN CORRESP-EKG RESULTS 05/18/2024 10:24 AM MANAGER TRACK SCAN CORRESP-EKG RESULTS 05/18/2024 10:24 AM MANAGER TRACK SCAN CORRESP-IMAGING 05/18/2024 10:24 AM MANAGER TRACK BLOOD GAS,VENOUS Early AM 05/18/2024 4:58 AM MANAGER TRACK CBC W PLT NO DIFF Early AM 05/18/2024 4:5 8 AM MANAGER TRACK PHOSPHORUS Early AM 05/18/2024 4:57 AM MANAGER TRACK MAGNESIUM Early AM 05/18/2024 4:57 AM MANAGER TRACK BASIC METABOLIC PANEL Early AM 05/18/2024 4:57 AM MANAGER TRACK SCAN-CARDIAC STRIP 05/17/2024 10 :36 PM MANAGER TRACK GLUCOSE METER Timed 05/17/2024 9:54 PM MANAGER TRACK CBC WITH AUTO DIFFERENTIAL STAT 05/17/2024 4:42 PM MANAGER TRACK CBC WITH AUTO DIFFERENTIAL STAT 05/17/2024 4:42 PM MANAGER TRACK BLOOD GAS,VENOUS Today 05/17/2024 4:04 PM MANAGER TRACK FERRITIN PIYUSH 05/17/2024 4:03 PM MANAGER TRACK IRON PLUS IRON BINDING CAP PIYUSH 05/17/2024 4:03 PM MANAGER TRACK PRO-BNP Today 05/17/2024 4:03 PM MANAGER TRACK LACTATE VENOUS Timed 05/17/2024 4:03 PM MANAGER TRACK PROCALCITONIN Today 05/17/2024 4:03 PM MANAGER TRACK HEPATIC FUNCTION PANEL STAT 4:03 PM MANAGER TRACK BASIC METABOLIC PANEL STAT 05/17/2024 4:03 PM MANAGER TRACK GLUCOSE METER Timed 05/17/2024 3:34 PM MANAGER TRACK SCAN CORRESP-EKG RESULTS 05/12/2024 2:[address] CHEST W Routine 05/11/2024 1:15 PM MANAGER TRACK CBC WITH AUTO DIFFERENTIAL PIYUSH 05/11/2024 10:50 AM MANAGER TRACK CBC WITH AUTO DIFFERENTIAL PIYUSH 05/11/2024 10:50 AM MANAGER TRACK QFT MITOGEN PERFORMABLE Early AM 05/11/2024 10:50 AM MANAGER TRACK QFT TB2 PERFORMABLE Early AM 05/11/2024 1 0:50 AM MANAGER TRACK QFT TB1 PERFORMABLE Early AM 05/11/2024 1 0:50 AM MANAGER TRACK QUANTIFERON TB GOLD PLUS Early AM 05/11/2024 10:50 AM MANAGER TRACK HEMOGLOBIN Early AM 05/11/2024 10:50 AM MANAGER TRACK BASIC METABOLIC PANEL Early AM 05/11/2024 10:50 AM MANAGER TRACK QUANTIFERON TB GOLD PLUS Early AM 05/11/2024 10:50 AM MANAGER TRACK SCAN-CARDIAC STRIP 05/10/2024 11 :50 PM MANAGER TRACK SCAN-CARDIAC STRIP 05/10/2024 11 :50 PM MANAGER TRACK SCAN-CARDIAC STRIP 05/10/2024 11 :50 PM MANAGER TRACK SCAN-CARDIAC STRIP 05/10/2024 11 :50 PM MANAGER TRACK SCAN-CARDIAC STRIP 05/10/2024 5: 10 PM MANAGER TRACK SCAN-CARDIAC STRIP 05/10/2024 5: 10 PM MANAGER TRACK SCAN-CARDIAC STRIP 05/10/2024 5: 10 PM MANAGER TRACK SCAN-CARDIAC STRIP 05/10/2024 5: 10 PM MANAGER TRACK SCAN CORRESP-IMAGING 05/10/2024 9:46 AM MANAGER TRACK SCAN-CARDIAC STRIP 05/10/2024 9: 13 AM MANAGER TRACK SCAN-CARDIAC STRIP 05/10/2024 9: 13 AM MANAGER TRACK SCAN-CARDIAC STRIP 05/10/2024 9: 13 AM MANAGER TRACK SCAN-CARDIAC STRIP 05/10/2024 9: 13 AM MANAGER TRACK CBC W PLT NO DIFF Early AM 05/10/2024 7:0 2 AM MANAGER TRACK BASIC METABOLIC PANEL Early AM 05/10/2024 7:02 AM MANAGER TRACK SCAN-CARDIAC STRIP 05/10/2024 12 :07 AM MANAGER TRACK SCAN-CARDIAC STRIP 05/10/2024 12 :07 AM MANAGER TRACK SCAN-CARDIAC STRIP 05/10/2024 12 :07 AM MANAGER TRACK SCAN-CARDIAC STRIP 05/10/2024 12 :07 AM MANAGER TRACK SCAN-CARDIAC STRIP 05/09/2024 9: 14 PM MANAGER TRACK SCAN-CARDIAC STRIP 05/09/2024 9: 14 PM MANAGER TRACK SCAN-CARDIAC STRIP 05/09/2024 9: 14 PM MANAGER TRACK SCAN-CARDIAC STRIP 05/09/2024 9: 14 PM MANAGER TRACK SCAN-CARDIAC STRIP 05/09/2024 4: 19 PM MANAGER TRACK SCAN-CARDIAC STRIP 05/09/2024 4: 19 PM MANAGER TRACK SCAN-CARDIAC STRIP 05/09/2024 4: 19 PM MANAGER TRACK SCAN-CARDIAC STRIP 05/09/2024 4: 19 PM MANAGER TRACK SCAN-CARDIAC STRIP 05/09/2024 7: 15 AM MANAGER TRACK SCAN-CARDIAC STRIP 05/09/2024 7: 15 AM MANAGER TRACK SCAN-CARDIAC STRIP 05/09/2024 7: 15 AM MANAGER TRACK SCAN-CARDIAC STRIP 05/09/2024 7: 15 AM MANAGER TRACK SCAN-CARDIAC STRIP 05/09/2024 12 :48 AM MANAGER TRACK SCAN-CARDIAC STRIP 05/09/2024 12 :48 AM MANAGER TRACK SCAN-CARDIAC STRIP 05/09/2024 12 :48 AM MANAGER TRACK SCAN-CARDIAC STRIP 05/09/2024 12 :48 AM MANAGER TRACK SCAN-CARDIAC STRIP 05/08/2024 7: 43 PM MANAGER TRACK SCAN-CARDIAC STRIP 05/08/2024 7: 43 PM MANAGER TRACK SCAN-CARDIAC STRIP 05/08/2024 7: 43 PM MANAGER TRACK SCAN-CARDIAC STRIP 05/08/2024 7: 43 PM MANAGER TRACK SCAN-CARDIAC STRIP 05/08/2024 3: 43 PM MANAGER TRACK SCAN-CARDIAC STRIP 05/08/2024 3: 43 PM MANAGER TRACK SCAN-CARDIAC STRIP 05/08/2024 3: 43 PM MANAGER TRACK SCAN-CARDIAC STRIP 05/08/2024 3: 43 PM MANAGER TRACK SCAN-CARDIAC STRIP 05/08/2024 7: 19 AM MANAGER TRACK SCAN-CARDIAC STRIP 05/08/2024 7: 19 AM MANAGER TRACK SCAN-CARDIAC STRIP 05/08/2024 7: 19 AM MANAGER TRACK SCAN-CARDIAC STRIP 05/08/2024 7: 19 AM MANAGER TRACK SCAN-CARDIAC STRIP 05/08/2024 1: 00 AM MANAGER TRACK SCAN-CARDIAC STRIP 05/08/2024 1: 00 AM MANAGER TRACK SCAN-CARDIAC STRIP 05/08/2024 1: 00 AM MANAGER TRACK SCAN-CARDIAC STRIP 05/08/2024 1: 00 AM MANAGER TRACK SCAN-CARDIAC STRIP 05/07/2024 9: 08 PM MANAGER TRACK SCAN-CARDIAC STRIP 05/07/2024 9: 08 PM MANAGER TRACK SCAN-CARDIAC STRIP 05/07/2024 9: 08 PM MANAGER TRACK SCAN-CARDIAC STRIP 05/07/2024 9: 08 PM MANAGER TRACK SCAN-CARDIAC STRIP 05/07/2024 5: 03 PM MANAGER TRACK SCAN-CARDIAC STRIP 05/07/2024 5: 03 PM MANAGER TRACK SCAN-CARDIAC STRIP 05/07/2024 5: 03 PM MANAGER TRACK SCAN-CARDIAC STRIP 05/07/2024 5: 03 PM MANAGER TRACK XR CHEST 1 VIEW PORTABLE Routine 05/07/2024 4:49 PM MANAGER TRACK SCAN-CARDIAC STRIP 05/07/2024 12 :39 PM MANAGER TRACK SCAN-CARDIAC STRIP 05/07/2024 12 :39 PM MANAGER TRACK SCAN-CARDIAC STRIP 05/07/2024 12 :39 PM MANAGER TRACK SCAN-CARDIAC STRIP 05/07/2024 12 :39 PM MANAGER TRACK ECHO TTE LIMITED WO CONTRAST W COLOR W LTD DOPPLER Routine 05/07/2024 11:27 AM MANAGER TRACK SCAN-CARDIAC STRIP 05/07/2024 9: 32 AM MANAGER TRACK SCAN-CARDIAC STRIP 05/07/2024 9: 32 AM MANAGER TRACK SCAN-CARDIAC STRIP 05/07/2024 9: 32 AM MANAGER TRACK SCAN-CARDIAC STRIP 05/07/2024 9: 32 AM MANAGER TRACK PLATELET COUNT Early AM 05/07/2024 4:41 AM MANAGER TRACK HEMOGLOBIN Early AM 05/07/2024 4:41 AM MANAGER TRACK WHITE BLOOD COUNT Early AM 05/07/2024 4:4 1 AM MANAGER TRACK MAGNESIUM Early AM 05/07/2024 4:41 AM MANAGER TRACK POTASSIUM Early AM 05/07/2024 4:41 AM MANAGER TRACK SODIUM Early AM 05/07/2024 4:41 AM MANAGER TRACK TROPONIN T (HS) ONE TIME Timed 05/07/2024 1:36 AM MANAGER TRACK SCAN-CARDIAC STRIP 05/07/2024 12 :00 AM MANAGER TRACK SCAN-CARDIAC STRIP 05/07/2024 12 :00 AM MANAGER TRACK SCAN-CARDIAC STRIP 05/07/2024 12 :00 AM MANAGER TRACK SCAN-CARDIAC STRIP 05/07/2024 12 :00 AM MANAGER TRACK MAGNESIUM Today 05/06/2024 11:07 PM MANAGER TRACK BASIC METABOLIC PANEL Today 05/06/2024 11:07 PM MANAGER TRACK TROPONIN T (HS) ACUTE W/2HR REFLEX STAT 05/06/2024 11:07 PM MANAGER TRACK EKG 12 LEAD Routine 05/06/2024 10:20 PM MANAGER TRACK SCAN-CARDIAC STRIP 05/06/2024 3: 52 PM MANAGER TRACK SCAN-CARDIAC STRIP 05/06/2024 3: 52 PM MANAGER TRACK SCAN-CARDIAC STRIP 05/06/2024 3: 52 PM MANAGER TRACK SCAN-CARDIAC STRIP 05/06/2024 3: 52 PM MANAGER TRACK LACTATE VENOUS Today 05/06/2024 3:17 PM MANAGER TRACK BLOOD GAS,VENOUS Today 05/06/2024 3:17 PM MANAGER TRACK SCAN-CARDIAC STRIP 05/06/2024 12 :42 PM MANAGER TRACK SCAN-CARDIAC STRIP 05/06/2024 12 :42 PM MANAGER TRACK SCAN-CARDIAC STRIP 05/06/2024 12 :42 PM MANAGER TRACK BASIC METABOLIC PANEL Early AM 04/30/2024 5:00 AM MANAGER TRACK PHOSPHORUS PIYUSH 04/29/2024 11:40 PM MANAGER TRACK MAGNESIUM PIYUSH 04/29/2024 11:40 PM MANAGER TRACK POTASSIUM PIYUSH 04/29/2024 11:40 PM MANAGER TRACK HEMOGLOBIN Early AM 04/29/2024 5:11 AM MANAGER TRACK US VEIN MAPPING UPPER EXTREMITY BILATERAL Routine 04/28/2024 9:45 PM MANAGER TRACK IR CENTRAL VENOUS ACCESS/PORT Routine 04/28/2024 10:48 AM MANAGER TRACK FERRITIN PIYUSH 04/28/2024 5:01 AM MANAGER TRACK IRON PLUS IRON BINDING CAP PIYUSH 04/28/2024 5:01 AM MANAGER TRACK BASIC METABOLIC PANEL PIYUSH 04/28/2024 5:01 AM MANAGER TRACK HCV RT-PCR, QUANT (NON-GRAPH) Timed 04/28/2024 5:01 AM MANAGER TRACK ANTI HBS QUANT AHS Early AM 04/28/2024 5: 01 AM MANAGER TRACK ANTI HBC Early AM 04/28/2024 5:01 AM MANAGER TRACK ANTI HCV Early AM 04/28/2024 5:01 AM MANAGER TRACK SCAN-OPERATIVE/PROCEDU RE REPORT 04/28/2024 12:00 AM MANAGER TRACK HBSAG (HBS) PIYUSH 04/27/2024 2:04 PM MANAGER TRACK PROTIME-INR Today 04/27/2024 2:04 PM MANAGER TRACK VITAMIN D 25 (DEFICIENCY) Today 04/27/2024 2:04 PM MANAGER TRACK CALCIUM IONIZED HOSPITAL DRAW ONLY Today 04/27/2024 2:04 PM MANAGER TRACK CK TOTAL Today 04/27/2024 2:04 PM MANAGER TRACK PTH,INTACT Today 04/27/2024 2:04 PM MANAGER TRACK PRO-BNP Today 04/27/2024 2:04 PM MANAGER TRACK RENAL FUNCTION PANEL Today 04/27/2024 2:04 PM MANAGER TRACK CBC W PLT NO DIFF Today 04/27/2024 2:0 4 PM MANAGER TRACK GLUCOSE METER Timed 04/27/2024 8:35 AM MANAGER TRACK SCAN CORRESP-LABORATORY RESULTS 04/26/2024 4:06 PM MANAGER TRACK SCAN CORRESP-IMAGING 04/26/2024 4:06 PM MANAGER TRACK GLUCOSE METER Timed 04/26/2024 3:37 PM MANAGER TRACK ECHO TTE COMPLETE W CONTRAST Routine 04/26/2024 2:06 PM MANAGER TRACK XR CHEST 2 VIEWS PA AND LATERAL Routine 04/26/2024 12:36 PM MANAGER TRACK GLUCOSE METER Timed 04/26/2024 8:28 AM MANAGER TRACK PHOSPHORUS Early AM 04/26/2024 5:58 AM MANAGER TRACK BLOOD GAS,VENOUS Early AM 04/26/2024 5:58 AM MANAGER TRACK CBC W PLT NO DIFF Early AM 04/26/2024 5:5 8 AM MANAGER TRACK BASIC METABOLIC PANEL Timed 04/26/2024 5:58 AM MANAGER TRACK PHOSPHORUS PIYUSH 04/25/2024 2:59 PM MANAGER TRACK LACTATE VENOUS STAT 04/25/2024 2:59 PM MANAGER TRACK BLOOD GAS,VENOUS STAT 04/25/2024 2:59 PM MANAGER TRACK BASIC METABOLIC PANEL STAT 04/25/2024 2:59 PM MANAGER TRACK SCAN-CARDIAC STRIP 04/25/2024 2: 58 PM MANAGER TRACK GLUCOSE METER Timed 04/25/2024 2:48 PM MANAGER TRACK from Last 3 Months Results * SCAN CORRESP-IMAGING (06/28/2024 3:02 PM MANAGER TRACK) Only the most recent of4 resultswithin the time period is included. Anatomical Region Laterality Modality Other Narrative 06/28/2024 3:02 PM MANAGER TRACK Ordered by an unspecified provider. us Other Clinical Staff OTHER Final Resul t * SCAN CORRESP-EKG RESULTS (06/28/2024 2:48 PM MANAGER TRACK) Only the most recent of4 resultswithin the time period is included. Narrative 06/28/2024 2:48 PM MANAGER TRACK Ordered by an unspecified provider. us Other Clinical Staff OTHER Final Resul t * SCAN-CARDIAC STRIP (06/26/2024 7:56 AM MANAGER TRACK) us Scanner OTHER Final Result * HBSAG (HBS) (06/26/2024 7:16 AM MANAGER TRACK) Only the most recent of2 resultswithin the time period is included. HBSAG Nonreactive Nonreactive 06/26/2024 10:33 AM MANAGER TRACK [facility] Blood BLOOD SPECIMEN / Unknown Venipuncture / Unknown 06/26/2024 7:16 AM MANAGER TRACK 06/26/2024 7:34 AM MANAGER TRACK Luan Tatum MD SEND OUTS Fi nal Result [facility] [address] [place] [address] * PLATELET COUNT (06/26/2024 7:16 AM MANAGER TRACK) Only the most recent of3 resultswithin the time period is included. PLATELET COUNT 265 140 - 440 thou/cu mm 06/26/2024 7:41 AM MANAGER TRACK [facility] MPV 10.3 6.5 - 11.0 fL 06/26/2024 7:41 AM [facility] Blood BLOOD SPECIMEN / Unknown Venipuncture / Unknown 06/26/2024 7:16 AM MANAGER TRACK 06/26/2024 7:34 AM MANAGER TRACK us Arun Martinez MD HEMATOLOGY Final Res ult [facility] SENDOUT INTERNAL ZIP [phone] [place] [id number] * WHITE BLOOD COUNT (06/26/2024 7:16 AM MANAGER TRACK) Only the most recent of3 resultswithin the time period is included. WHITE BLOOD COUNT 10.4 4.5 - 11.0 thou/cu mm 06/26/2024 7:41 AM MANAGER TRACK [facility] NRBC 0.0 % 06/26/2024 7:41 AM MANAGER TRACK [facility] ABS NRBC 0.0 thou /cu mm 06/26/2024 7:41 AM [facility] Blood BLOOD SPECIMEN / Unknown Venipuncture / Unknown 06/26/2024 7:16 AM MANAGER TRACK 06/26/2024 7:34 AM MANAGER TRACK Arun Martinez MD HEMATOLOGY Final Res ult [facility] SENDOUT INTERNAL ZIP [id number] [address] [place] [address] * (ABNORMAL) HEMOGLOBIN (06/26/2024 7:16 AM MANAGER TRACK) Only the most recent of6 resultswithin the time period is included. HEMOGLOBIN 10.4(L) 13.5 - 17.5 g/dL 06/26/2024 7:41 AM MANAGER TRACK [facility] MCV 95 80 - 100 fL 06/26/2024 7:41 AM MANAGER TRACK [facility] Blood BLOOD SPECIMEN / Unknown Venipuncture / Unknown 06/26/2024 7:16 AM MANAGER TRACK 06/26/2024 7:34 AM MANAGER TRACK Arun Martinez MD HEMATOLOGY Final Res ult Performing Organization Address City/[facility]/ZIP Co de Phone Number [facility] SENDOUT INTERNAL ZIP [phone] [place] [id number] * (ABNORMAL) SODIUM (06/26/2024 7:16 AM MANAGER TRACK) Only the most recent of3 resultswithin the time period is included. SODIUM 135(L) 136 - 145 mmol/L 06/26/2024 8:00 AM MANAGER TRACK [facility] Blood BLOOD SPECIMEN / Unknown Venipuncture / Unknown 06/26/2024 7:16 AM MANAGER TRACK 06/26/2024 7:34 AM MANAGER TRACK us Arun Martinez MD CHEMISTRY Final Res ult [facility] SENDOUT INTERNAL ZIP [phone] [place] [address] * POTASSIUM (06/26/2024 7:16 AM MANAGER TRACK) Only the most recent of4 resultswithin the time period is included. POTASSIUM 4.0 3.5 - 5.1 mmol/L 06/26/2024 8:00 AM MANAGER TRACK [facility] Blood BLOOD SPECIMEN / Unknown Venipuncture / Unknown 06/26/2024 7:16 AM MANAGER TRACK 06/26/2024 7:34 AM MANAGER TRACK Arun Martinez MD CHEMISTRY Final Res ult Performing Organization Address [facility]/ZIP Co de Phone Number [facility] SENDOUT INTERNAL ZIP [phone] [place] [id number] * MAGNESIUM (06/26/2024 7:16 AM MANAGER TRACK) Only the most recent of7 resultswithin the time period is included. MAGNESIUM 2.2 1.6 - 2.4 mg/dL 06/26/2024 8:00 AM MANAGER TRACK [facility] Blood BLOOD SPECIMEN / Unknown Venipuncture / Unknown 06/26/2024 7:16 AM MANAGER TRACK 06/26/2024 7:34 AM MANAGER TRACK Arun Martinez MD CHEMISTRY Final Res t Performing Organization Address [facility] de Phone Number [facility] SENDOUT INTERNAL ZIP [phone] [place] [phone] * SCAN-CARDIAC STRIP (06/25/2024 8:41 PM MANAGER TRACK) Scanner OTHER Final Result * (ABNORMAL) VITAMIN D 25 (DEFICIENCY) (05/27/2024 12:29 PM MANAGER TRACK) Only the most recent of2 resultswithin the [...] D, (D2,D3), LC/MS/MS is recommended: order code [id number] (patients >2yrs). See Note 1 Note 1 For additional information, please refer to http://education.[employer]/faq/HMZ260 (This link is being provided for informational/ educational purposes only.) Blood BLOOD SPECIMEN / Unknown 05/27/2024 12:29 PM MANAGER TRACK 05/27/2024 12:29 PM MANAGER TRACK us Shelia Dietrich DO SEND OUTS Final Resu lt [email or web address] [facility] [address] [place] [address], [facility] [address] [place] [address] * (ABNORMAL) BASIC METABOLIC PANEL (05/27/2024 12:29 PM MANAGER TRACK) Only the most recent of11 resultswithin the time period is included. Pathologist [facility] GLUCOSE 97 65 - 99 mg/dL [facility] Comment: Fasting reference interval UREA NITROGEN (BUN) 31(H) 7 - 25 mg/dL [facility] CREATININE 4.66(H) 0.70 - 1.35 mg/dL [facility] EGFR 13(L) > OR = [...] Rich CALCIUM 9.6 8.6 - 10.3 mg/dL [facility] Blood BLOOD SPECIMEN / Unknown 05/27/2024 12:29 PM MANAGER TRACK 05/27/2024 12:29 PM MANAGER TRACK Shelia Chaconxler DO CHEMISTRY Final Resu lt [email or web address] [facility] [address] [place] [address], [facility] [address] [place] [address] * CT Chest without contrast (05/24/2024 1:53 PM MANAGER TRACK) Anatomical Region Laterality Modality CHEST, THORAX, HEART Computed To mography 05/24/2024 2:26 PM MANAGER TRACK Impressions 05/24/2024 2:26 PM MANAGER TRACK 1. No significant change in the large [...] PM (Electronically Signed) Narrative 05/24/2024 2:26 PM MANAGER TRACK For Patients: As a result of the [...] a [facility]: Stable right-sided dual lumen venous [...] or atelectasis at the left lung base [id number] series 4. Subpleural fibrosis at the lung [...] 05/24/2024 2:26:14 PM (Electronically Signed) us Sheyla Apraicio MD CT Final Resu lt * HBV REAL TIME PCR QUANT (05/20/2024 1:58 PM MANAGER TRACK) HBV IU mL HBV DNA not detected IU/mL 05/23/2024 6:06 PM [facility] log10 HBV IU mL 05/23/2024 6:06 PM [facility] Comment: Unable to calculate result since non-numeric result obtained for component test. HBV Test Info Comment 05/23/2024 6:06 PM [facility] Comment:The reportable range for this assay is 10 IU/mL to 1 billion IU/mL. Blood BLOOD SPECIMEN / Unknown Non-Lab Venipuncture / Unknown 05/20/2024 1:58 PM MANAGER TRACK 05/20/2024 2:09 PM MANAGER TRACK Narrative [facility] - 05/23/2024 6:06 PM MANAGER TRACK Performed at: 01 - [facility] [address] [address], [place], [place] [id number] District Ranger: Basilio Oden MD, Phone: [phone] us Jasvir Parrish MD SEND OUTS Final Re sult [facility] ([facility]) [address] [place] [address], * (ABNORMAL) RENAL FUNCTION PANEL (05/20/2024 1:58 PM MANAGER TRACK) Only the most recent of2 resultswithin the time period is included. SODIUM 132(L) 136 - 145 mmol/L 05/20/2024 2:39 PM MANAGER TRACK [facility] POTASSIUM 4.0 3.5 - 5.1 mmol/L 05/20/2024 2:39 PM MANAGER TRACK [facility] CHLORIDE 96(L) 98 - 107 mmol/L 05/20/2024 2:39 PM MANAGER TRACK [facility] CO2,TOTAL 20(L) 22 - 29 mmol/L 05/20/2024 2:39 PM MANAGER TRACK [facility] ANION GAP 16 5 - 18 05/20/2024 2:39 PM MANAGER TRACK [facility] GLUCOSE 119(H) 70 - 99 mg/dL 05/20/2024 2:39 PM MANAGER TRACK [facility] CALCIUM 8.8 8.8 - 10.4 mg/dL 05/20/2024 2:39 PM MANAGER TRACK [facility] Comment: Reference ranges for this test were updated on 03/30/2024 to reflect our healthy population more accurately. Reference range changes are not retroactively applied to results, but previous results using the same methodology can be interpreted in the context of the new reference range. BUN 40(H) 8 - 23 mg/dL 05/20/2024 2:39 PM MANAGER TRACK [facility] CREATININE 4.41(H) 0.70 - 1.20 mg/dL 05/20/2024 2:39 PM MANAGER TRACK [facility] TRA [facility] BUN/CREAT RATIO 9(L) 10 - 20 2:39 PM MANAGER TRACK [facility] eGFR 14(L) >90 mL/min/1. 73m2 05/20/2024 2:39 PM MANAGER TRACK [facility] Comment:As of 2021, eG FR is calculated by the CKD-EPI creatinine equation without race adjustment. eGFR can be influenced by muscle mass, exercise, and diet. The reported eGFR is an estimation only and is only applicable if the renal function is stable. PHOSPHORUS 4.0 2.5 - 4.5 mg/dL 05/20/2024 2:39 PM MANAGER TRACK [facility] ALBUMIN 3.7(L) 4.0 - 4.9 g/dL 05/20/2024 2:39 PM MANAGER TRACK [facility] Blood BLOOD SPECIMEN / Unknown Non-Lab Venipuncture / Unknown 05/20/2024 1:58 PM MANAGER TRACK 05/20/2024 2:08 PM MANAGER TRACK us Sheyla Aparicio MD CHEMISTRY Final Resu lt [facility] [address] [place] [address], * (ABNORMAL) CBC W PLT NO DIFF (05/20/2024 1:57 PM MANAGER TRACK) Only the most recent of6 resultswithin the time period is included. WHITE BLOOD COUNT 11.4(H) 4.5 - 11.0 thou/cu mm 05/20/2024 2:14 PM MANAGER TRACK [facility] RED BLOOD COUNT 2.71(L) 4.30 - 5.90 mil/cu mm 05/20/2024 2:14 PM MANAGER TRACK [facility] HEMOGLOBIN 8.7(L) 13.5 - 17.5 g/dL 05/20/2024 2:14 PM MANAGER TRACK [facility] HEMATOCRIT 26.2(L) 37.0 - 53.0 % 05/20/2024 2:14 PM MANAGER TRACK [facility] MCV 97 80 - 100 fL 05/20/2024 2:14 PM MANAGER TRACK [facility] MCH 32.1 26.0 - 34.0 pg 05/20/2024 2:14 PM MANAGER TRACK [facility] MCHC 33.2 32.0 - 36.0 g/dL 05/20/2024 2:14 PM MANAGER TRACK [facility] RDW 12.5 11.5 - 15.5 % 05/20/2024 2:14 PM MANAGER TRACK [facility] PLATELET COUNT 279 140 - 440 thou/cu mm 05/20/2024 2:14 PM MANAGER TRACK [facility] MPV 11.8(H) 6.5 - 11.0 fL 05/20/2024 2:14 PM MANAGER TRACK [facility] NRBC 0.0 % 05/20/2024 2:14 PM MANAGER TRACK [facility] ABS NRBC 0.0 thou /cu mm 05/20/2024 2:14 PM MANAGER TRACK [facility] Blood BLOOD SPECIMEN / Unknown Non-Lab Venipuncture / Unknown 05/20/2024 1:57 PM MANAGER TRACK 05/20/2024 2:08 PM MANAGER TRACK Dipak Hendrickson MD HEMATOLOGY Final Resu lt [facility] [address] [address], * (ABNORMAL) PHOSPHORUS (05/19/2024 3:27 PM MANAGER TRACK) Only the most recent of5 resultswithin the time period is included. PHOSPHORUS 2.1(L) 2.5 - 4.5 mg/dL 05/19/2024 4:13 PM MANAGER TRACK [facility] Blood BLOOD SPECIMEN / Unknown Butterfly / Unknown 05/19/2024 3:27 PM MANAGER TRACK 05/19/2024 3:32 PM MANAGER TRACK Dipak Hendrickson MD CHEMISTRY Final Resu lt Performing Organization Address City/[facility]/ZIP Co de Phone Number [facility] [address] [place] [address], * (ABNORMAL) GLUCOSE METER (05/18/2024 11:30 PM MANAGER TRACK) Only the most recent of8 resultswithin the time period is included. GLUCOSE METER 105(H) 65 - 100 mg/dL 05/18/2024 11:32 PM MANAGER TRACK [facility] Blood BLOOD SPECIMEN / Unknown 05/18/2024 11:30 PM MANAGER TRACK 05/18/2024 11:32 PM MANAGER TRACK us Doctor Unknown CHEMISTRY Final Result Performing Organization Address [facility] Co de Phone Number [facility] [address] [place] [address], [place] * HCV RT-PCR, QUANT (NON-GRAPH) [facility] (05/18/2024 10:30 AM MANAGER TRACK) Only the most recent of2 resultswithin the time period is included. Hep C Qn HCV Not Detected IU/mL 05/22/2024 2:06 PM MANAGER TRACK [facility] HCV Test Info Comment 05/22/2024 2:06 PM MANAGER TRACK [facility] Comment:The quantitative ran ge of this assay is 15 IU/mL to 100 million IU/mL. Blood BLOOD SPECIMEN / Unknown Venipuncture / Unknown 05/18/2024 10:30 AM MANAGER TRACK 05/18/2024 10:35 AM MANAGER TRACK Narrative [facility] - 05/22/2024 2:06 PM MANAGER TRACK Performed at: 01 - [facility] [place] [address] [id number] District Ranger: Basilio Oden MD, Phone: [phone] us Osmani Ceron MD LABORATORY Final Resul t Performing Organization Address City/[facility]/ZIP Co de Phone Number [facility]) [address] [place] [address], * (ABNORMAL) BLOOD GAS,VENOUS (05/18/2024 4:58 AM MANAGER TRACK) Only the most recent of5 resultswithin the time period is included. PH, VENOUS 7.41 7.32 - 7.43 05/18/2024 5:34 AM MANAGER TRACK [facility] [employer] [facility] PCO2, VENOUS 39(L) 41 - 51 mmHg 05/18/2024 5:34 AM MANAGER TRACK [facility] PO2, VENOUS 43(H) 35 - 40 mmHg 05/18/2024 5:34 AM MANAGER TRACK [facility] HCO3,VENOUS 25 22 - 29 mmol/L 05/18/2024 5:34 AM MANAGER TRACK [facility] BASE EXCESS, VENOUS, POCT 0.1 -2.0 - 3.0 05/18/2024 5:34 AM MANAGER TRACK [facility] O2 SATURATION, VENOUS 76(H) 70 - 75 % 05/18/2024 5:34 AM MANAGER TRACK [facility] PATIENT TEMPERATURE 37.0 Degrees C 05/18/2024 5:34 AM MANAGER TRACK [facility] Blood VENOUS BLOOD SPECIMEN / Unknown Venipuncture / Unknown 05/18/2024 4:58 AM MANAGER TRACK 05/18/2024 5:30 AM MANAGER TRACK Dipak Hendrickson MD CHEMISTRY Final Resu lt [facility] [address] [place] [address], * SCAN-CARDIAC STRIP (05/17/2024 10:36 PM MANAGER TRACK) us Scanner OTHER Final Result * (ABNORMAL) CBC WITH AUTO DIFFERENTIAL (05/17/2024 4:42 PM MANAGER TRACK) Only the most recent of2 resultswithin the time period is included. WHITE BLOOD COUNT 8.6 4.5 - 11.0 thou/cu mm 05/17/2024 4:58 PM [facility]AL LAB[facility] RED BLOOD COUNT 2.49(L) 4.30 - 5.90 mil/cu mm 05/17/2024 4:58 PM [facility] HEMOGLOBIN 8.1(L) 13.5 - 17.5 g/dL 05/17/2024 4:58 PM [facility] HEMATOCRIT 25.0(L) 37.0 - 53.0 % 05/17/2024 4:58 PM [facility] MCV 100 80 - 100 fL 05/17/2024 4:58 PM [facility] MCH 32.5 26.0 - 34.0 pg 05/17/2024 4:58 PM [facility] MCHC 32.4 32.0 - 36.0 g/dL 05/17/2024 4:58 PM [facility] RDW 12.8 11.5 - 15.5 % 05/17/2024 4:58 PM [facility] PLATELET COUNT 306 140 - 440 thou/cu mm 05/17/2024 4:58 PM [facility] MPV 11.3(H) 6.5 - 11.0 fL 05/17/2024 4:58 PM [facility] NRBC 0.0 % 05/17/2024 4:58 PM [facility] ABS NRBC 0.0 thou /cu mm 05/17/2024 4:58 PM [facility] % NEUT 84.4 % 05/17/2024 4:58 PM [facility] % LYMPH 13.1 % 05/17/2024 4:58 PM [facility] % MONO 1.5 % 05/17/2024 4:58 PM [facility] % EOS 0.0 % 05/17/2024 4:58 PM [facility] % BASO 0.2 % 05/17/2024 4:58 PM MANAGER TRACK [facility] % IMMATURE GRAN (METAS,MYELOS,CA OS) 0.8 % 05/17/2024 4:58 PM MANAGER TRACK [facility] ABSOLUTE NEUTROPHILS 7.3(H) 1.7 - 7.0 thou/cu mm 05/17/2024 4:58 PM MANAGER TRACK [facility] ABSOLUTE LYMPHOCYTES 1.1 0.9 - 2.9 thou/cu mm 05/17/2024 4:58 PM MANAGER TRACK [facility] ABSOLUTE MONOCYTES 0.1 <0.9 thou/cu mm 05/17/2024 4:58 PM MANAGER TRACK [facility] ABSOLUTE EOSINOPHILS 0.0 <0.5 thou/cu mm 05/17/2024 4:58 PM MANAGER TRACK [facility] ABSOLUTE BASOPHILS 0.0 <0.3 thou/cu mm 05/17/2024 4:58 PM MANAGER TRACK [facility] ABSOLUTE IMMATURE GRANULOCYTES(MET ,MYELOS,PROS) 0.1 <0.3 thou/cu mm 05/17/2024 4:58 PM MANAGER TRACK [facility] Blood BLOOD SPECIMEN / Unknown Line/Port / Unknown 05/17/2024 4:42 PM MANAGER TRACK 05/17/2024 4:49 PM MANAGER TRACK us Jaden Aguilar MB HEMATOLOGY Final Result [facility] [address] [place] [address], * LACTATE VENOUS (05/17/2024 4:03 PM MANAGER TRACK) Only the most recent of3 resultswithin the time period is included. LACTATE,VENOUS 0.8 0.5 - 2.0 mmol/L 05/17/2024 4:40 PM MANAGER TRACK [facility] Blood BLOOD SPECIMEN / Unknown Venipuncture / Unknown 05/17/2024 4:03 PM MANAGER TRACK 05/17/2024 4:11 PM MANAGER TRACK Jaden Nieves Sultan PATRICK CHEMISTRY Final Result [facility] [address] [place] [address], * (ABNORMAL) PROCALCITONIN (05/17/2024 4:03 PM MANAGER TRACK) PROCALCITONIN 6.23(H) ng/ml 05/17/2024 5:00 PM MANAGER TRACK [facility] Blood BLOOD SPECIMEN / Unknown Venipuncture / Unknown 05/17/2024 4:03 PM MANAGER TRACK 05/17/2024 4:11 PM MANAGER TRACK Narrative [facility] - 05/17/2024 5:00 PM MANAGER TRACK Procalcitonin for initial assessment of Lower Respiratory [...] SEND OUTS Final Result Performing Organization Address [facility] Co de Phone Number [facility] [address] [place] [address], [place] * (ABNORMAL) IRON PLUS IRON BINDING CAP (05/17/2024 4:03 PM MANAGER TRACK) Only the most recent of2 resultswithin the time period is included. IRON 40(L) 61 - 157 ug/dL 05/17/2024 4:54 PM MANAGER TRACK [facility] UIBC (UNSATURATED) 237 112 - 347 ug/dL 05/17/2024 4:54 PM MANAGER TRACK [facility] IRON BINDING CAPACITY 277 250 - 400 ug/dL 05/17/2024 4:54 PM MANAGER TRACK [facility] IRON,% SATURATION 14 14 - 50 % 05/17/2024 4:54 PM MANAGER TRACK [facility] Blood BLOOD SPECIMEN / Unknown Venipuncture / Unknown 05/17/2024 4:03 PM MANAGER TRACK 05/17/2024 4:11 PM MANAGER TRACK Dipak Hendrickson MD CHEMISTRY Final Resu lt Performing Organization Address [facility] Co de Phone Number [facility] [address] [place] [address], [place] * (ABNORMAL) PRO-BNP (05/17/2024 4:03 PM MANAGER TRACK) Only the most recent of2 resultswithin the time period is included. PRO-BNP 36,616(H) <125 pg/mL 05/17/2024 6:13 PM MANAGER TRACK [facility] Blood BLOOD SPECIMEN / Unknown Venipuncture / Unknown 05/17/2024 4:03 PM MANAGER TRACK 05/17/2024 4:11 PM MANAGER TRACK Narrative [facility] - 05/17/2024 6:13 PM MANAGER TRACK The following cut-points have been suggested for [...] OUTS Final Resu lt Performing Organization Address City/[facility] Co de Phone Number [facility] [address] [address], [place] * FERRITIN (05/17/2024 4:03 PM MANAGER TRACK) Only the most recent of2 resultswithin the time period is included. FERRITIN 181.0 30.0 - 400.0 ng/mL 05/17/2024 4:54 PM MANAGER TRACK [facility] Blood BLOOD SPECIMEN / Unknown Venipuncture / Unknown 05/17/2024 4:03 PM MANAGER TRACK 05/17/2024 4:11 PM MANAGER TRACK us Dipak Hendrickson MD CHEMISTRY Final Resu lt Performing Organization Address [facility] Co de Phone Number [facility] [address] [address], [place] * (ABNORMAL) Hepatic Function Panel (05/17/2024 4:03 PM MANAGER TRACK) ALBUMIN 3.8(L) 4.0 - 4.9 g/dL 05/17/2024 4:54 PM MANAGER TRACK [facility] PROTEIN,TOTAL 6.6 6.0 - 8.0 g/dL 05/17/2024 4:54 PM MANAGER TRACK [facility] BILIRUBIN,TOTAL 0.2 0.0 - 1.2 mg/dL 05/17/2024 4:54 PM MANAGER TRACK [facility] BILIRUBIN,DIRECT 0.1 0.0 - 0.2 mg/dL 05/17/2024 4:54 PM MANAGER TRACK [facility] ALK PHOSPHATASE 145(H) 40 - 129 IU/L 05/17/2024 4:54 PM MANAGER TRACK [facility] ALT (SGPT) 10 10 - 50 IU/L 05/17/2024 4:54 PM MANAGER TRACK [facility] AST (SGOT) 19 10 - 50 IU/L 05/17/2024 4:54 PM MANAGER TRACK [facility] Blood BLOOD SPECIMEN / Unknown Venipuncture / Unknown 05/17/2024 4:03 PM MANAGER TRACK 05/17/2024 4:11 PM MANAGER TRACK [place] Jaden W [facility] Final Result [facility] [address] [place] [address], [place] * CT CHEST W (05/11/2024 1:15 PM MANAGER TRACK) Anatomical Region Laterality Modality CHEST, THORAX, HEART Computed To mography 05/11/2024 1:15 PM MANAGER TRACK Impressions 05/11/2024 1:47 PM MANAGER TRACK 1. Large masslike area of consolidation within the right lower lobe which is concerning for malignancy although pneumonia could have a similar appearance. If concern for pneumonia, recommend appropriate interval follow-up chest x-ray in 4-6 weeks to assure complete resolution. Otherwise recommend further workup for malignancy. Narrative 05/11/2024 1:47 PM MANAGER TRACK For Patients: As a result of the Cures Act, medical imaging exams and procedure reports are released immediately into your electronic medical record. You may view this report before your referring provider. If you have questions, please contact your health care provider. EXAM: CT CHEST W LOCATION: [facility] MEDICAL IMAGING DATE: 05/11/2024 INDICATION: [...] care provider. EXAM: CT CHEST W LOCATION: [facility] MEDICAL IMAGING DATE: 05/11/2024 INDICATION: [...] * QFT MITOGEN PERFORMABLE (05/11/2024 10:50 AM MANAGER TRACK) MITOGEN 10.00 IU/mL 05/12/2024 9:47 AM MANAGER TRACK [facility] Blood BLOOD SPECIMEN / Unknown Venipuncture / Unknown 05/11/2024 10:50 AM MANAGER TRACK 05/11/2024 10:53 AM MANAGER TRACK us Yazmin Briggs MD CHEMISTRY Final Result [facility] [address] [place] [address], * QFT TB2 PERFORMABLE (05/11/2024 10:50 AM MANAGER TRACK) TB2 0.04 IU/mL 05/12/2024 9:47 AM MANAGER TRACK [facility] Blood BLOOD SPECIMEN / Unknown Venipuncture / Unknown 05/11/2024 10:50 AM MANAGER TRACK 05/11/2024 10:53 AM MANAGER TRACK us Yazmin Briggs MD CHEMISTRY Final Result [facility] [address] [place] [id number], [place] * QFT TB1 PERFORMABLE (05/11/2024 10:50 AM MANAGER TRACK) TB1 0.04 IU/mL 05/12/2024 9:47 AM MANAGER TRACK [facility] Blood BLOOD SPECIMEN / Unknown Venipuncture / Unknown 05/11/2024 10:50 AM MANAGER TRACK 05/11/2024 10:53 AM MANAGER TRACK Yazmin Briggs MD CHEMISTRY Final Result Performing Organization Address City/[facility]/ZIP Co de Phone Number [facility] [address] [place] [address], [place] * QUANTIFERON TB GOLD PLUS (05/11/2024 10:50 AM MANAGER TRACK) QFTP NIL 0.04 05/12/2024 10:09 AM [facility] TB1 0.04 IU/mL 05/12/2024 10:09 AM [facility] TB2 0.04 IU/mL 05/12/2024 10:09 AM [facility] MITOGEN 10.00 IU/mL 05/12/2024 10:09 AM [facility] QFTP TB AG1 - NIL 0.00 024 10:09 AM [facility] TB1-NIL % OF NIL 0 % 05/12/20 24 10:09 AM [facility] QFTP TB AG2 - NIL 0.00 024 10:09 AM [facility] TB2-NIL % OF NIL 0 % 05/12/20 24 10:09 AM [facility] QFTP MITOGEN - NIL 9.96 2023 10:09 AM [facility] QFTP QUANTIFERON INTERPRETATION Negative Negative 05/12/2024 10:09 AM MANAGER TRACK [facility] Blood BLOOD SPECIMEN / Unknown Venipuncture / Unknown 05/11/2024 10:50 AM MANAGER TRACK 05/11/2024 10:53 AM MANAGER TRACK Narrative [facility] - 05/12/2024 10:09 AM MANAGER TRACK M. tuberculosis infection not likely, but cannot [...] us Yazmin Briggs MD CHEMISTRY Final Result [facility] [address] [place] [address], [place] * SCAN-CARDIAC STRIP (05/10/2024 11:50 PM MANAGER TRACK) us Scanner OTHER Final Result * SCAN-CARDIAC STRIP (05/10/2024 11:50 PM MANAGER TRACK) us Scanner OTHER Final Result * SCAN-CARDIAC STRIP (05/10/2024 11:50 PM MANAGER TRACK) us Scanner OTHER Final Result * SCAN-CARDIAC STRIP (05/10/2024 11:50 PM MANAGER TRACK) us Scanner OTHER Final Result * SCAN-CARDIAC STRIP (05/10/2024 5:10 PM MANAGER TRACK) us Scanner OTHER Final Result * SCAN-CARDIAC STRIP (05/10/2024 5:10 PM MANAGER TRACK) us Scanner OTHER Final Result * SCAN-CARDIAC STRIP (05/10/2024 5:10 PM MANAGER TRACK) us Scanner OTHER Final Result * SCAN-CARDIAC STRIP (05/10/2024 5:10 PM MANAGER TRACK) us Scanner OTHER Final Result * SCAN-CARDIAC STRIP (05/10/2024 9:13 AM MANAGER TRACK) us Scanner OTHER Final Result * SCAN-CARDIAC STRIP (05/10/2024 9:13 AM MANAGER TRACK) us Scanner OTHER Final Result * SCAN-CARDIAC STRIP (05/10/2024 9:13 AM MANAGER TRACK) us Scanner OTHER Final Result * SCAN-CARDIAC STRIP (05/10/2024 9:13 AM MANAGER TRACK) us Scanner OTHER Final Result * SCAN-CARDIAC STRIP (05/10/2024 12:07 AM MANAGER TRACK) us Scanner OTHER Final Result * SCAN-CARDIAC STRIP (05/10/2024 12:07 AM MANAGER TRACK) us Scanner OTHER Final Result * SCAN-CARDIAC STRIP (05/10/2024 12:07 AM MANAGER TRACK) us Scanner OTHER Final Result * SCAN-CARDIAC STRIP (05/10/2024 12:07 AM MANAGER TRACK) us Scanner OTHER Final Result * SCAN-CARDIAC STRIP (05/09/2024 9:14 PM MANAGER TRACK) us Scanner OTHER Final Result * SCAN-CARDIAC STRIP (05/09/2024 9:14 PM MANAGER TRACK) us Scanner OTHER Final Result * SCAN-CARDIAC STRIP (05/09/2024 9:14 PM MANAGER TRACK) us Scanner OTHER Final Result * SCAN-CARDIAC STRIP (05/09/2024 9:14 PM MANAGER TRACK) us Scanner OTHER Final Result * SCAN-CARDIAC STRIP (05/09/2024 4:19 PM MANAGER TRACK) us Scanner OTHER Final Result * SCAN-CARDIAC STRIP (05/09/2024 4:19 PM MANAGER TRACK) us Scanner OTHER Final Result * SCAN-CARDIAC STRIP (05/09/2024 4:19 PM MANAGER TRACK) us Scanner OTHER Final Result * SCAN-CARDIAC STRIP (05/09/2024 4:19 PM MANAGER TRACK) us Scanner OTHER Final Result * SCAN-CARDIAC STRIP (05/09/2024 7:15 AM MANAGER TRACK) us Scanner OTHER Final Result * SCAN-CARDIAC STRIP (05/09/2024 7:15 AM MANAGER TRACK) us Scanner OTHER Final Result * SCAN-CARDIAC STRIP (05/09/2024 7:15 AM MANAGER TRACK) us Scanner OTHER Final Result * SCAN-CARDIAC STRIP (05/09/2024 7:15 AM MANAGER TRACK) us Scanner OTHER Final Result * SCAN-CARDIAC STRIP (05/09/2024 12:48 AM MANAGER TRACK) us Scanner OTHER Final Result * SCAN-CARDIAC STRIP (05/09/2024 12:48 AM MANAGER TRACK) us Scanner OTHER Final Result * SCAN-CARDIAC STRIP (05/09/2024 12:48 AM MANAGER TRACK) us Scanner OTHER Final Result * SCAN-CARDIAC STRIP (05/09/2024 12:48 AM MANAGER TRACK) us Scanner OTHER Final Result * SCAN-CARDIAC STRIP (05/08/2024 7:43 PM MANAGER TRACK) us Scanner OTHER Final Result * SCAN-CARDIAC STRIP (05/08/2024 7:43 PM MANAGER TRACK) us Scanner OTHER Final Result * SCAN-CARDIAC STRIP (05/08/2024 7:43 PM MANAGER TRACK) us Scanner OTHER Final Result * SCAN-CARDIAC STRIP (05/08/2024 7:43 PM MANAGER TRACK) us Scanner OTHER Final Result * SCAN-CARDIAC STRIP (05/08/2024 3:43 PM MANAGER TRACK) us Scanner OTHER Final Result * SCAN-CARDIAC STRIP (05/08/2024 3:43 PM MANAGER TRACK) us Scanner OTHER Final Result * SCAN-CARDIAC STRIP (05/08/2024 3:43 PM MANAGER TRACK) us Scanner OTHER Final Result * SCAN-CARDIAC STRIP (05/08/2024 3:43 PM MANAGER TRACK) us Scanner OTHER Final Result * SCAN-CARDIAC STRIP (05/08/2024 7:19 AM MANAGER TRACK) us Scanner OTHER Final Result * SCAN-CARDIAC STRIP (05/08/2024 7:19 AM MANAGER TRACK) us Scanner OTHER Final Result * SCAN-CARDIAC STRIP (05/08/2024 7:19 AM MANAGER TRACK) us Scanner OTHER Final Result * SCAN-CARDIAC STRIP (05/08/2024 7:19 AM MANAGER TRACK) us Scanner OTHER Final Result * SCAN-CARDIAC STRIP (05/08/2024 1:00 AM MANAGER TRACK) us Scanner OTHER Final Result * SCAN-CARDIAC STRIP (05/08/2024 1:00 AM MANAGER TRACK) us Scanner OTHER Final Result * SCAN-CARDIAC STRIP (05/08/2024 1:00 AM MANAGER TRACK) us Scanner OTHER Final Result * SCAN-CARDIAC STRIP (05/08/2024 1:00 AM MANAGER TRACK) us Scanner OTHER Final Result * SCAN-CARDIAC STRIP (05/07/2024 9:08 PM MANAGER TRACK) us Scanner OTHER Final Result * SCAN-CARDIAC STRIP (05/07/2024 9:08 PM MANAGER TRACK) us Scanner OTHER Final Result * SCAN-CARDIAC STRIP (05/07/2024 9:08 PM MANAGER TRACK) us Scanner OTHER Final Result * SCAN-CARDIAC STRIP (05/07/2024 9:08 PM MANAGER TRACK) us Scanner OTHER Final Result * SCAN-CARDIAC STRIP (05/07/2024 5:03 PM MANAGER TRACK) us Scanner OTHER Final Result * SCAN-CARDIAC STRIP (05/07/2024 5:03 PM MANAGER TRACK) us Scanner OTHER Final Result * SCAN-CARDIAC STRIP (05/07/2024 5:03 PM MANAGER TRACK) us Scanner OTHER Final Result * SCAN-CARDIAC STRIP (05/07/2024 5:03 PM MANAGER TRACK) us Scanner OTHER Final Result * XR CHEST 1 VIEW PORTABLE (05/07/2024 4:49 PM MANAGER TRACK) Anatomical Region Laterality Modality HEART, THORAX, CHEST Computed Ra diography 05/07/2024 4:49 PM MANAGER TRACK Impressions 05/07/2024 5:09 PM MANAGER TRACK Again noted is medial right lower lung [...] < 1 Month Narrative 05/07/2024 5:09 PM MANAGER TRACK For Patients: As a result of the Cures Act, medical imaging exams and procedure reports are released immediately into your electronic medical record. You may view this report before your referring provider. If you have questions, please contact your health care provider. EXAM: XR CHEST 1 VIEW PORTABLE LOCATION: [facility] MEDICAL IMAGING DATE: 05/07/2024 INDICATION: [...] EXAM: XR CHEST 1 VIEW PORTABLE LOCATION: [facility] MEDICAL IMAGING DATE: 05/07/2024 INDICATION: [...] ult * SCAN-CARDIAC STRIP (05/07/2024 12:39 PM MANAGER TRACK) us Scanner OTHER Final Result * SCAN-CARDIAC STRIP (05/07/2024 12:39 PM MANAGER TRACK) us Scanner OTHER Final Result * SCAN-CARDIAC STRIP (05/07/2024 12:39 PM MANAGER TRACK) us Scanner OTHER Final Result * SCAN-CARDIAC STRIP (05/07/2024 12:39 PM MANAGER TRACK) us Scanner OTHER Final Result * ECHO TTE LIMITED WO CONTRAST W COLOR W LTD DOPPLER (05/07/2024 11:27 AM MANAGER TRACK) EJECTION FRACTION 50% PROSOLV Anatomical Region Laterality Modality Ultrasound 05/07/2024 12:0 2 PM MANAGER TRACK Narrative 05/07/2024 12:52 [place] [address] Main: [email or web address] Transthoracic Echo Report HENRIQUEBARON Bjorn ID: [id number] Age: 63 : 1960 Ordering Provider: ARUN MARTINEZ Exam Date: 05/07/2024 12:02 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[employer] Height: 68 in BSA: 1.61 m BP: [...] % >= 55 % Alirio Reyes MD [facility] Accredited Site (Electronically Signed) Final Date: 07 May 2024 12:52 ICD-10 Codes: us Arun Martinez MD ECHO ORD Final Res ult * SCAN-CARDIAC STRIP (05/07/2024 9:32 AM MANAGER TRACK) us Scanner OTHER Final Result * SCAN-CARDIAC STRIP (05/07/2024 9:32 AM MANAGER TRACK) us Scanner OTHER Final Result * SCAN-CARDIAC STRIP (05/07/2024 9:32 AM MANAGER TRACK) us Scanner OTHER Final Result * SCAN-CARDIAC STRIP (05/07/2024 9:32 AM MANAGER TRACK) us Scanner OTHER Final Result * (ABNORMAL) TROPONIN T (HS) ONE TIME (05/07/2024 1:36 AM MANAGER TRACK) TROPONIN T HS 87(H) 6-15 ng/L ng/L 05/07/2024 2:07 AM MANAGER TRACK [facility] Blood BLOOD SPECIMEN / Unknown Venipuncture / Unknown 05/07/2024 1:36 AM MANAGER TRACK 05/07/2024 1:43 AM MANAGER TRACK us Eric Gomes NP CHEMISTRY Final Result [facility] SENDOUT [place] [address]IP [address] [address] [place] [address] * SCAN-CARDIAC STRIP (05/07/2024 12:00 AM MANAGER TRACK) us Scanner OTHER Final Result * SCAN-CARDIAC STRIP (05/07/2024 12:00 AM MANAGER TRACK) us Scanner OTHER Final Result * SCAN-CARDIAC STRIP (05/07/2024 12:00 AM MANAGER TRACK) us Scanner OTHER Final Result * SCAN-CARDIAC STRIP (05/07/2024 12:00 AM MANAGER TRACK) us Scanner OTHER Final Result * (ABNORMAL) TROPONIN T (HS) ACUTE W/2HR REFLEX (05/06/2024 11:07 PM MANAGER TRACK) TROPONIN T HS 90(H) 6-15 ng/L ng/L 05/06/2024 11:31 PM MANAGER TRACK [facility] Blood BLOOD SPECIMEN / Unknown Butterfly / Unknown 05/06/2024 11:07 PM MANAGER TRACK 05/06/2024 11:11 PM MANAGER TRACK Narrative [facility] - 05/06/2024 11:31 PM MANAGER TRACK hs-cTnT (Elecsys Troponin T Gen 5) concentration [...] us Eric Gomes NP CHEMISTRY Final Result [facility] SENDOUT [place]IP [id number] [address] [place] [address] * EKG 12 LEAD (05/06/2024 10:20 PM MANAGER TRACK) Interpretation Normal sinus rhythm Voltage criteria for [...] NOW QTc 514 ms BEYOND NOW P [place] 57 degrees BEYOND NOW R [place] 49 degrees BEYOND NOW T [place] 149 degrees BEYOND NOW 05/06/2024 10:2 0 PM MANAGER TRACK 05/07/2024 5:33 PM MANAGER TRACK us Eric Gomes NP EKG ORD Final Result Performing Organization Address City/State/[facility] Co de Phone Number [place], [place] * SCAN-CARDIAC STRIP (05/06/2024 3:52 PM MANAGER TRACK) us Scanner OTHER Final Result * SCAN-CARDIAC STRIP (05/06/2024 3:52 PM MANAGER TRACK) us Scanner OTHER Final Result * SCAN-CARDIAC STRIP (05/06/2024 3:52 PM MANAGER TRACK) us Scanner OTHER Final Result * SCAN-CARDIAC STRIP (05/06/2024 3:52 PM MANAGER TRACK) us Scanner OTHER Final Result * SCAN-CARDIAC STRIP (05/06/2024 12:42 PM MANAGER TRACK) us Scanner OTHER Final Result * SCAN-CARDIAC STRIP (05/06/2024 12:42 PM MANAGER TRACK) us Scanner OTHER Final Result * SCAN-CARDIAC STRIP (05/06/2024 12:42 PM MANAGER TRACK) us Scanner OTHER Final Result * US VEIN MAPPING UPPER EXTREMITY BILATERAL (04/28/2024 9:45 PM MANAGER TRACK) Anatomical Region Laterality Modality ARM L, ARM R Ultrasound 04/28/2024 9:45 PM MANAGER TRACK Impressions 04/29/2024 7:38 AM MANAGER TRACK 1. Superficial thrombophlebitis of the right cephalic vein at the shoulder. 2. Bilateral upper extremity cephalic and basilic vein measurements as above. 3. Patent bilateral upper extremity subclavian, brachial and radial arteries. The right upper extremity arteries demonstrate monophasic waveforms which raises concern for a mild inflow stenosis. Narrative 04/29/2024 7:38 AM MANAGER TRACK For Patients: As a result of the Cures Act, medical imaging exams and procedure reports are released immediately into your electronic medical record. You may view this report before your referring provider. If you have questions, please contact your health care provider. EXAM: US VEIN MAPPING UPPER EXTREMITY BILATERAL LOCATION: [facility] DATE: 04/28/2024 INDICATION: Graft suitability COMPARISON: None. [...] US VEIN MAPPING UPPER EXTREMITY BILATERAL LOCATION: [facility] DATE: 04/28/2024 INDICATION: Graft suitability COMPARISON: None. [...] thrombophlebitis of the right cephalic vein at [facility]. 2. Bilateral upper extremity cephalic and basilic vein measurements asabove. 3. Patent bilateral upper extremity subclavian, brachial and radialarteries. The right upper extremity arteries demonstrate monophasicwaveforms which raises concern for a mild inflow stenosis. us Derick ACKERMAN US Final Res ult * IR CENTRAL VENOUS ACCESS/PORT (04/28/2024 10:48 AM MANAGER TRACK) Anatomical Region Laterality Modality X-Ray Angiograph y, Other, Other 04/28/2024 10:4 8 AM MANAGER TRACK Impressions 04/28/2024 2:21 PM MANAGER TRACK Ultrasound and fluoroscopic guided placement of tunneled 19 cm tip to cuff, right internal jugular dialysis catheter. Narrative 04/28/2024 2:21 PM MANAGER TRACK For Patients: As a result of the Cures Act, medical imaging exams and procedure reports are released immediately into your electronic medical record. You may view this report before your referring provider. If you have questions, please contact your health care provider. [facility] EXAM: TUNNELED CENTRAL VENOUS CATHETER PLACEMENT LOCATION: [facility] CLINICAL HISTORY: The patient has a history [...] observer. The physician spent 12 minutes of [id number] moderate sedation time with the patient. ADDITIONAL [...] questions, please contact your health care provider. [facility] EXAM: TUNNELED CENTRAL VENOUS CATHETER PLACEMENT LOCATION: [facility] CLINICAL HISTORY: The patient has a history [...] trained observer. The physicianspent 12 minutes of eqdc-be-[id number] moderate sedation time with thepatient. ADDITIONAL MEDICATIONS: [...] * (ABNORMAL) ANTI HCV (04/28/2024 5:01 AM MANAGER TRACK) HEPATITIS C ANTIBODY Reactive, Preliminary Positive(A) Non-React odette 04/28/2024 9:46 AM MANAGER TRACK [facility]- NTRAL LABORATORY Comment:Presumptive evidence of antibodies to HCV. Reflexed to HCV RNA Quant (See separate report). Blood BLOOD SPECIMEN / Unknown Venipuncture / Unknown 04/28/2024 5:01 AM MANAGER TRACK 04/28/2024 5:17 AM MANAGER TRACK Zaheer Valerio MD SEND OUTS Final Result [facility] [address] [place] [address], [place] * ANTI HBS QUANT AHS (04/28/2024 5:01 AM MANAGER TRACK) ANTI HBS QUANT <3.50 mIU/mL 04/28/2024 10:01 AM MANAGER TRACK [facility] Blood BLOOD SPECIMEN / Unknown Venipuncture / Unknown 04/28/2024 5:01 AM MANAGER TRACK 04/28/2024 5:17 AM MANAGER TRACK Narrative [facility] - 04/28/2024 10:01 AM MANAGER TRACK <8.5 Considered not immune to HBV infection. [...] SEND OUTS Final Result Performing Organization Address City/[facility]/ZIP Co de Phone Number [facility] [address] [place] [address], [place] * (ABNORMAL) ANTI HBC (04/28/2024 5:01 AM MANAGER TRACK) ANTI HBC Reactive( A) Non-React odette 04/28/2024 10:01 AM MANAGER TRACK [facility] Comment:Anti-HBc detected. P resumptive evidence of HBV infection. Order Anti-HBc IgM if acute infection suspected. Blood BLOOD SPECIMEN / Unknown Venipuncture / Unknown 04/28/2024 5:01 AM MANAGER TRACK 04/28/2024 5:17 AM MANAGER TRACK Zaheer Valerio MD SEND OUTS Final Result [facility] [address] [place] [address], [place] * SCAN-OPERATIVE/PROCEDURE REPORT (04/28/2024 12:00 AM MANAGER TRACK) Narrative 04/28/2024 12:00 AM MANAGER TRACK Ordered by an unspecified provider. Other Clinical Staff OTHER Final Resul t * PROTIME-INR (04/27/2024 2:04 PM MANAGER TRACK) INR 1.1 <1.3 04/27/2024 2:20 PM MANAGER TRACK [facility] PROTIME 12.1 10.6 - 12.4 sec 04/27/2024 2:20 PM MANAGER TRACK [facility] Blood BLOOD SPECIMEN / Unknown IV Start / Unknown 04/27/2024 2:04 PM MANAGER TRACK 04/27/2024 2:09 PM MANAGER TRACK [facility] - 04/27/2024 2:20 PM MANAGER TRACK Therapeutic Range 2.0-3.0 for most anticoagulated patients [...] [facility]FH. Zaheer Valerio MD HEMATOLOGY Final Result [facility] INTERNAL ZIP [address] [address] [place] [address] * (ABNORMAL) PTH,INTACT (04/27/2024 2:04 PM MANAGER TRACK) CALCIUM 8.4(L) 8.8 - 10.4 mg/dL 04/27/2024 9:16 PM MANAGER TRACK [facility] Comment: Reference ranges for this test were updated on 03/30/2024 to reflect our healthy population more accurately. Reference range changes are not retroactively applied to results, but previous results using the same methodology can be interpreted in the context of the new reference range. PTH,INTACT 397.0(H) 15.0 - 69.0 pg/mL 04/27/2024 9:16 PM MANAGER TRACK [facility] Blood BLOOD SPECIMEN / Unknown IV Start / Unknown 04/27/2024 2:04 PM MANAGER TRACK 04/27/2024 2:09 PM MANAGER TRACK Zaheer Valerio MD SEND OUTS Final Result [facility] [address] [place] [address], [place] * CK TOTAL (04/27/2024 2:04 PM MANAGER TRACK) CK,TOTAL 103 39 - 308 IU/L 04/27/2024 2:37 PM MANAGER TRACK [facility] Blood BLOOD SPECIMEN / Unknown IV Start / Unknown 04/27/2024 2:04 PM MANAGER TRACK 04/27/2024 2:09 PM MANAGER TRACK Zaheer Valerio MD CHEMISTRY Final Result [facility] INTERNAL ZIP [address] [address] [place] [address] * CALCIUM IONIZED HOSPITAL DRAW ONLY (04/27/2024 2:04 PM MANAGER TRACK) [facility] CALCIUM,IONIZE D 1.18 1.15 - 1.27 mmol/L 04/27/2024 2:16 PM MANAGER TRACK [facility] Blood BLOOD SPECIMEN / Unknown IV Start / Unknown 04/27/2024 2:04 PM MANAGER TRACK 04/27/2024 2:10 PM MANAGER TRACK Zaheer Valerio MD CHEMISTRY Final Result [facility] INTERNAL ZIP [address] [address] [place] [address] * SCAN CORRESP-LABORATORY RESULTS (04/26/2024 4:06 PM MANAGER TRACK) Narrative 04/26/2024 4:06 PM MANAGER TRACK Ordered by an unspecified provider. 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9 Procedure Note Charisma Alcocer MD - 04/26/2024 [facility] [place] [facility] [address], [place] [address] Main: [email or web address] Transthoracic Echo Report BARON DUENAS Bjorn ID: [id number] Age: 63 : 1960 Ordering Provider:WARD DUNCAN Exam Date: 04/26/2024 13:27 Gender: M 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[employer] Height: 68 in BSA: 1.65 m BP: 127 / 69 Weight: 121 lbs BMI: 18.4 kg/m HR: 94 Site: [facility] Location: Inpatient (Portable) Rhythm: Regular Procedure Components: 2D imaging with contrast, Color Doppler, SpectralDoppler Indications: Heart failure, unspecified Technical Quality: Contrast: Definity [facility]#: [id number] Final Conclusion Bi-plane Calculated EF: 51% Technically [...] ZScore: 1.60 Charisma Alcocer MD (Electronically Signed) [facility] Accredited Site Final Date: 26 April 2024 14:51 ICD-10 Codes: 428.9 Ward Shah Brody DO ECHO ORD Final Result * XR CHEST 2 VIEWS PA AND LATERAL (04/26/2024 12:36 PM MANAGER TRACK) Anatomical Region Laterality Modality CHEST, THORAX, Lung, HEART Digit al Radiography 04/26/2024 12:3 6 PM MANAGER TRACK Impressions 04/26/2024 1:13 PM MANAGER TRACK Hazy opacity projecting over the right lower lung likely reflect areas of consolidation in the right lower lobe. Minimal left basilar atelectasis. No pleural fluid. Normal heart size and pulmonary vascularity. Narrative 04/26/2024 1:13 PM MANAGER TRACK For Patients: As a result of the Cures Act, medical imaging exams and procedure reports are released immediately into your electronic medical record. You may view this report before your referring provider. If you have questions, please contact your health care provider. EXAM: XR CHEST 2 VIEWS PA AND LATERAL LOCATION: [facility] DATE: 04/26/2024 INDICATION: Shortness of breath. COMPARISON: [...] CHEST 2 VIEWS PA AND LATERAL LOCATION: [facility] DATE: 04/26/2024 INDICATION: Shortness of breath. COMPARISON: Chest film 05/19/2023. IMPRESSION: Hazy opacity projecting over the right lower lung likely reflect areas ofconsolidation in the right lower lobe. Minimal left basilar atelectasis.No pleural fluid. Normal heart size and pulmonary vascularity. us Zaheer Valerio MD GENERAL IMAGING Final Result * SCAN-CARDIAC STRIP (04/25/2024 2:58 PM MANAGER TRACK) us Scanner OTHER Final Result from Last 3 Months Insurance [facility] Advance Directives * Full Code (Latest Code [...] Code Status Discussion: Reviewed Preferences Care Teams Roof Truss Builder Relationship Specialty Start Date End Date Shelia [place] [address] [address] PCP - General Family Practice 06/18/23 Pcp, No . 05/18/23
--- OUTSIDE RECORDS SUMMARY | 2024-07-08 21:02 | XMS_ITS | Clinical Summary ---
Author Organization [place] Address [address] 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 Gender Identity Not on file Sexual Orientation Not on file Last Filed Vital Signs Vital Sign Reading Time Taken Comments Blood Pressure 116/67 07/31/2023 3:45 PM SUPERINTENDENT [employer] DISTRIBUTION Pulse 49 07/31/2023 3:45 PM SUPERINTENDENT [employer]HEAD DISTRIBUTION Temperature 36.4 C (97.5 F) 07/31/2023 3:15 PM SUPERINTENDENT OVERHEAD DISTRIBUTION Respiratory Rate 16 07/31/2023 3:20 PM SUPERINTENDENT OVERHEAD DISTRIBUTION Oxygen Saturation 95% 07/31/2023 3:45 PM SUPERINTENDENT OVERHEAD DISTRIBUTION Inhaled Oxygen Concentration - - Weight 54.5 kg (120 lb 3.2 oz) 07/31/2023 12:05 PM SUPERINTENDENT [employer]RIBUTION Height 172.7 cm (5' 7.99) 07/31/2023 12:[address] Body Mass Index 18.28 07/31/2023 12:05 PM SUPERINTENDENT [employer]HEAD DISTRIBUTION Plan of Treatment Health Maintenance Due Date [...] patient's age to complete this topic Insurance [facility] Care Teams Dumper Relationship Specialty Start Date End Date [facility], [address] [address] PCP - General 07/31/23
--- OUTSIDE RECORDS SUMMARY | 2024-07-08 21:02 | XMS_ITS | Clinical Summary ---
Author Organization [facility] Address [address] [place] [address] Care Team Providers Care Real Estate Developer Name Role Phone Unavailable Primary Care Provider Unavailabl e Source Comments Patient records contain information from all sites at [facility]. For routine questions regarding patient records, call [phone] during business hours, M-F 8:00 AM - 5:00 PM Central Time. Record requests for emergency care only can be directed to [phone] at any time.[facility] Allergies Active Allergy Reactions Criticality Noted [...] P.A.-C. LAB BLOOD ADD-ON Final Resu lt [facility] [address] [place] [address], [facility] [address] [place] [address] * HIV-1/-2 Ag and Ab Screen, Plasma (03/14/2023 6:31 PM CDT) Pathologist [facility] [place] HIV-1/-2 Ag and Ab Screen, P Negative Negative 03/14/2023 9:01 PM CDT [facility] Comment: Negative result does not rule out HIV infection. If exposure to HIV infection occurred <14 days ago, contact the laboratory to request addition of HIV-1/HIV-2 RNA detection, Plasma (HIP12). Blood (Blood, Venous) 03/14/2023 6:31 PM CDT 03/14/2023 8:20 PM CDT Clai B Catto P.A.-C. LAB MICROBIOLOGY - BLOOD OR DERABLES Final Result Performing Organization Address City/[facility]/ZIP Co de Phone Number [facility] [address] [place] [address] [facility] [address] [place] [address] * (ABNORMAL) HCV Ab Scrn w/Reflex to HCV PCR, Serum (03/14/2023 6:31 PM CDT) HCV Ab Screen, S Reactive(A ) Negative 03/14/2023 11:27 PM CDT [facility] Comment: Supplemental testing for HCV RNA is ordered to rule out active HCV infection. Vsyqxg-am-jolbwy ratio is >=1.00 and <8.00. Blood (Blood, Venous) 03/14/2023 6:31 PM CDT 03/14/2023 8:21 PM CDT Clai B Catto P.A.-C. LAB MICROBIOLOGY - BLOOD OR DERABLES Final Result Performing Organization Address City/[facility]/ZIP Co de Phone Number [facility] [address] [place] [address] [facility] [address] [place] [address] from Last 3 Months or Most Recently Relevant to Health Maintenance Insurance [facility] Advance Directives For more information, please contact: [phone] * Full Code (Latest Code Status on File) Date Activated Date Inactivated Comments 03/13/2023 4:37 AM 03/19/2023 5:51 PM Question Answer Comments Full Code: Not Discussed Due to: Patient not available
[2024-07-08 21:08] LABS: PCR FLU A Negative PCR FLU A (Negative); PCR FLU B Negative PCR FLU B (Negative); PCR RSV Negative PCR RSV (Negative); SARS PCR* Negative SARS-CoV-2 (Negative)
[2024-07-08] MEDS: fentaNYL 100 MCG/2 ML inj 25 MCG IVP ×5 (21:11→23:30)
--- NOTE | 2024-07-08 21:11 | PC.NURSE ---
Pt cut off pants and shirt. Has $86 and multiple keys that were also secured in bag
[2024-07-08 21:28] LABS: Potassium* 4.6 mmol/L (3.6-5.1)
[2024-07-08 21:44] LABS: Troponin I* 0.04 ng/mL (0.01-0.04)
[2024-07-08 21:51] LABS: Amphetamine Screen Urine Negative (Negative); Barbiturate Screen Urine Negative (Negative); Benzodiazepines Screen Urine Negative (Negative); Cannabinoid Screen Urine POSITIVE (Negative); Cocaine Screen Urine Negative (Negative); Methadone Screen Urine Negative (Negative); Methamphetamines Screen Urine Negative (Negative); Opiate Screen Urine Negative (Negative); Oxycodone Screen Urine Negative (Negative); Phencyclidine Screen Urine Negative (Negative); Tricyclic Antidepressant Urine Negative (Negative)
[2024-07-08 21:52] LABS: Ethanol* < 0.00 % (0.01-0.03)
[2024-07-08 22:08] LABS: pH Gastric Fluid* 4.5
== END 2024-07-09 09:49 | disposition short-term general hospital (02) ==
PROVIDERS: Student in an Organized Health Care Education/Training Program; Emergency Provider Family Medicine
DX: J96.91 Respiratory failure, unspecified with hypoxia (principal); Z99.2 Dependence on renal dialysis
CPT/HCPCS: 31500; 36415; 71045; 74018; 80053; 80306; 82077; 82803; 83605; 83735; 83986; 84484; 85025; 85610; 87040; 87186; 87631; 93005; 94761; 96365; 96375; 99285; 99291; 99292; J2543; J2704; J2919; J3010; J3490; J7030

== ENCOUNTER 2024-08-16 14:30 | Outpatient (CLI) | payer MEDICAID, SELFPAY | END 2024-08-16 14:31 | disposition home or self-care (01) | LOC: AMB 08-18 11:50 | PROVIDERS: Visit Provider Emergency Medicine | DX: R06.09 Other forms of dyspnea (principal) | CPT/HCPCS: A0425; A0427 ==

== ENCOUNTER 2024-08-16 14:57 | Emergency (ER) | payer MEDICAID, SELFPAY ==
[2024-08-16] VITALS (9 sets, daily range): BP systolic 138–155; BP diastolic 105–112; PULSE 81–100; RESP 9–24; TEMP 35.9; O2SAT 92–95; BMI 18.9
--- OUTSIDE RECORDS SUMMARY | 2024-08-16 15:00 | XMS_ITS | Clinical Summary ---
Author Organization [employer] Address [facility] [place] [address] Care Team Providers Care Colon Therapist Name Role Phone Pcp, No Unavailable Unavailable Shelia Dietrich DO Primary Care Provider [phone] Allergies Active Allergy Reactions Criticality Noted Date [...] at bedtime. 30 Tablet 05/25/2024 4:01 PM SHEET METAL CONTRACTOR 05/25/2024 Active bumetanide (BUMEX) 2 mg tabletIndication s:HFrEF (heart failure with reduced ejection fraction) (HC) Take 1 Tablet (2 mg) by mouth once daily in the morning. 30 Tablet 05/25/2024 4:01 PM SHEET METAL CONTRACTOR 05/25/2024 Active carvediloL (COREG) 6.25 mg tabletIndication s:HFrEF (heart failure with reduced ejection fraction) (HC),Hypertensio n Take 1 Tablet (6.25 mg) by mouth two times daily with meals. 60 Tablet 05/25/2024 4:01 PM SHEET METAL CONTRACTOR 05/25/2024 Active multivitamin with folic acid 0.4 mg (Daily-Ernestina, with folic acid,) Take 1 Tablet by mouth once daily. Active Active Problems Problem Noted Date Diagnosed [...] Department Care Team Description 06/28/2024 Patient Outreach [facility] [address] [place] [address] Adrianna Collins, RN Student Primary RN Care Management (Lace score 60); Hospital F/U 06/25/2024 7:36 PM SHEET METAL CONTRACTOR - 06/26/2024 11:45 AM SHEET METAL CONTRACTOR Hospital Encounter [address] [place] [address] s, U Hospitalist c Arun Martinez MD Chaudhry, iVki Abreu MD Discharge Disposition: Home Self Care 05/28/2024 Telephone [facility] [address] [place] [address] Shelia Dietrich DO Results 05/27/2024 11:15 AM SHEET METAL CONTRACTOR Office Visit [facility] [address] [place] [address] Shelia Dietrich DO Hospital F/U (Has had several hospitalizations for heart failure and ESRD; most recently discharged on 05/26/24) 05/27/2024 Telephone [facility] [address] [place] [address] Ami Smith, RN Appointment (Arrange transportation with [facility]) 05/27/2024 Travel 05/27/2024 Patient Outreach [facility] [address] [place] [address] Deidra Bradley, JOSE LUIS Hospital F/U; Primary RN Care Management (LACE 80) 05/17/2024 3:04 PM SHEET METAL CONTRACTOR - 05/26/2024 4:30 PM SHEET METAL CONTRACTOR Hospital Encounter [facility] [address] [place] [address] Jaden Aguilar MBBS Wirt, Aurelia Saravia, DO Aparicio, MD Star Dwyer, Shen Nagy MD [facility] [place], [facility] Hospitalists Of Foot pain, bilateral (Primary Dx); Transportation insecurity; Other problems related to social environment; Lipid disorder; HFrEF (heart failure with reduced ejection fraction) (HC); Hypertension; Pneumonia due to infectious organism, unspecified laterality, unspecified part of lung Discharge Disposition: Home Self Care from Last 3 Months Immunizations Immunization Administration Dates Next Due COVID-19 VACCINE SPIKEVAX (M ODERNA 50MCG/0.5ML) 12YO+ PFS 05/08/2024 COVID-19 vaccine (Pfizer-Bio NTech 30mcg/0.3mL) 12YO+ BIVALENT PF, MDV 02/20/2022 COVID-19 vaccine (Pfizer-Bio NTech 30mcg/0.3mL) PF, MDV 04/04/2021,09/11/2020,08/21/2020 Hepatitis A [...] on file Legal Sex Male 4:18 PM SHEET METAL CONTRACTOR Gender Identity Not on file Sexual Orientation Not on file Obstetrics History Last Filed Vital Signs Vital Sign Reading Time Taken Comments Blood Pressure 159/88 06/26/2024 7:29 AM SHEET METAL CONTRACTOR Pulse 87 06/26/2024 7:36 AM SHEET METAL CONTRACTOR Temperature 36.5 C (97.7 F) 06/26/2024 7:29 AM SHEET METAL CONTRACTOR Respiratory Rate 18 06/26/2024 7:29 AM SHEET METAL CONTRACTOR Oxygen Saturation 91% 06/26/2024 7:29 AM SHEET METAL CONTRACTOR Inhaled Oxygen Concentration - - Weight 54.4 kg (120 lb) 06/25/2024 10:15 PM SHEET METAL CONTRACTOR Height 174 cm (5' 8.5) 05/17/2024 3:00 PM SHEET METAL CONTRACTOR Body Mass Index 17.98 05/17/2024 3:00 PM SHEET METAL CONTRACTOR Plan of Treatment Health Maintenance Due Date [...] 18-79 Completed 04/28/2024 COVID-19 vaccine series Completed 05/08/20 24, 02/20/2022, 04/04/2021, Additional history exists Influenza Vaccine Completed 05/08/2024, , 04/04/2021, Additional history exists Procedures Procedure Name Priority Date/Time Associated Diagnosis Comments SCAN CORRESP-IMAGING 06/28/2024 3:02 PM SHEET METAL CONTRACTOR SCAN CORRESP-EKG RESULTS 06/28/2024 2:48 PM SHEET METAL CONTRACTOR SCAN-CARDIAC STRIP 06/26/2024 7: 56 AM SHEET METAL CONTRACTOR HBSAG (HBS) STAT 06/26/2024 7:16 AM SHEET METAL CONTRACTOR PLATELET COUNT Early AM 06/26/2024 7:16 AM SHEET METAL CONTRACTOR HEMOGLOBIN Early AM 06/26/2024 7:16 AM SHEET METAL CONTRACTOR WHITE BLOOD COUNT Early AM 06/26/2024 7:1 6 AM SHEET METAL CONTRACTOR MAGNESIUM Early AM 06/26/2024 7:16 AM SHEET METAL CONTRACTOR POTASSIUM Early AM 06/26/2024 7:16 AM SHEET METAL CONTRACTOR SODIUM Early AM 06/26/2024 7:16 AM SHEET METAL CONTRACTOR SCAN-CARDIAC STRIP 06/25/2024 8: 41 PM SHEET METAL CONTRACTOR HEMOGLOBIN Routine 05/27/2024 12:29 PM SHEET METAL CONTRACTOR Anemia of chronic renal failure, stage 5 (HC) BASIC METABOLIC PANEL Routine 05/27/2024 12:29 PM SHEET METAL CONTRACTOR Anemia of chronic renal failure, stage 5 (HC) VITAMIN D 25 (DEFICIENCY) Routine 05/27/2024 12:29 PM SHEET METAL CONTRACTOR Vitamin D deficiency POTASSIUM Early AM 05/25/2024 9:11 AM SHEET METAL CONTRACTOR SODIUM Early AM 05/25/2024 9:11 AM SHEET METAL CONTRACTOR WHITE BLOOD COUNT Early AM 05/25/2024 9:1 1 AM SHEET METAL CONTRACTOR PLATELET COUNT Early AM 05/25/2024 9:11 AM SHEET METAL CONTRACTOR HEMOGLOBIN Early AM 05/25/2024 9:11 [address] CHEST WO Routine 05/24/2024 1:53 PM SHEET METAL CONTRACTOR HBV REAL TIME PCR QUANT Today 05/20/2024 1:58 PM SHEET METAL CONTRACTOR RENAL FUNCTION PANEL Early AM 05/20/2024 1:58 PM SHEET METAL CONTRACTOR MAGNESIUM Early AM 05/20/2024 1:58 PM SHEET METAL CONTRACTOR CBC W PLT NO DIFF Early AM 05/20/2024 1:5 7 PM SHEET METAL CONTRACTOR PHOSPHORUS Early AM 05/19/2024 3:27 PM SHEET METAL CONTRACTOR MAGNESIUM Early AM 05/19/2024 3:27 PM SHEET METAL CONTRACTOR CBC W PLT NO DIFF Early AM 05/19/2024 3:2 7 PM SHEET METAL CONTRACTOR BASIC METABOLIC PANEL Early AM 05/19/2024 3:27 PM SHEET METAL CONTRACTOR GLUCOSE METER Timed 05/18/2024 11:30 PM SHEET METAL CONTRACTOR GLUCOSE METER Timed 05/18/2024 5:52 PM SHEET METAL CONTRACTOR HCV RT-PCR, QUANT (NON-GRAPH) Today 05/18/2024 10:30 AM SHEET METAL CONTRACTOR SCAN CORRESP-EKG RESULTS 05/18/2024 10:24 AM SHEET METAL CONTRACTOR SCAN CORRESP-EKG RESULTS 05/18/2024 10:24 AM SHEET METAL CONTRACTOR SCAN CORRESP-IMAGING 05/18/2024 10:24 AM SHEET METAL CONTRACTOR BLOOD GAS,VENOUS Early AM 05/18/2024 4:58 AM SHEET METAL CONTRACTOR CBC W PLT NO DIFF Early AM 05/18/2024 4:5 8 AM SHEET METAL CONTRACTOR PHOSPHORUS Early AM 05/18/2024 4:57 AM SHEET METAL CONTRACTOR MAGNESIUM Early AM 05/18/2024 4:57 AM SHEET METAL CONTRACTOR BASIC METABOLIC PANEL Early AM 05/18/2024 4:57 AM SHEET METAL CONTRACTOR ANTI HCV Early AM 04/28/2024 5:01 AM SHEET METAL CONTRACTOR from Last 3 Months or Most Recently Relevant to Health Maintenance Results * SCAN CORRESP-IMAGING (06/28/2024 3:02 PM SHEET METAL CONTRACTOR) Only the most recent of2 resultswithin the time period is included. Anatomical Region Laterality Modality Other Narrative 06/28/2024 3:02 PM SHEET METAL CONTRACTOR Ordered by an unspecified provider. us Other Clinical Staff OTHER Final Resul t * SCAN CORRESP-EKG RESULTS (06/28/2024 2:48 PM SHEET METAL CONTRACTOR) Only the most recent of3 resultswithin the time period is included. Narrative 06/28/2024 2:48 PM SHEET METAL CONTRACTOR Ordered by an unspecified provider. us Other Clinical Staff OTHER Final Resul t * SCAN-CARDIAC STRIP (06/26/2024 7:56 AM SHEET METAL CONTRACTOR) us Scanner OTHER Final Result * HBSAG (HBS) (06/26/2024 7:16 AM SHEET METAL CONTRACTOR) HBSAG Nonreactive Nonreactive 06/26/2024 10:33 AM SHEET METAL CONTRACTOR [facility] Blood BLOOD SPECIMEN / Unknown Venipuncture / Unknown 06/26/2024 7:16 AM SHEET METAL CONTRACTOR 06/26/2024 7:34 AM SHEET METAL CONTRACTOR us Luan Tatum MD SEND OUTS Fi nal Result [facility] [address] [place] [address], * PLATELET COUNT (06/26/2024 7:16 AM SHEET METAL CONTRACTOR) Only the most recent of2 resultswithin the time period is included. PLATELET COUNT 265 140 - 440 thou/cu mm 06/26/2024 7:41 [address] SHE[address] METAL [address] [facility] MPV 10.3 6.5 - 11.0 fL 06/26/2024 7:[address] [facility] Blood BLOOD SPECIMEN / Unknown Venipuncture / Unknown 06/26/2024 7:16 AM SHEET METAL CONTRACTOR 06/26/2024 7:34 AM SHEET METAL CONTRACTOR Arun Martinez MD HEMATOLOGY Final Res ult Performing Organization Address [facility] Co de Phone Number [facility] SENDOUT INTERNAL ZIP [phone] [place] [phone] * WHITE BLOOD COUNT (06/26/2024 7:16 AM SHEET METAL CONTRACTOR) Only the most recent of2 resultswithin the time period is included. WHITE BLOOD COUNT 10.4 4.5 - 11.0 thou/cu mm 06/26/2024 7:[address] METAL [address] [facility] NRBC 0.0 % 06/26/2024 7:[address] SHE[address] METAL [address] [facility] ABS NRBC 0.0 thou /cu mm 06/26/2024 7:[address] [employer] [facility] Blood BLOOD SPECIMEN / Unknown Venipuncture / Unknown 06/26/2024 7:16 AM SHEET METAL CONTRACTOR 06/26/2024 7:34 AM SHEET METAL CONTRACTOR Arun Martinez MD HEMATOLOGY Final Res ult Performing Organization Address City/[facility]/ZIP Co de Phone Number [facility] SENDOUT INTERNAL ZIP [phone] [place] [phone] * (ABNORMAL) HEMOGLOBIN (06/26/2024 7:16 AM SHEET METAL CONTRACTOR) Only the most recent of3 resultswithin the time period is included. HEMOGLOBIN 10.4(L) 13.5 - 17.5 g/dL 06/26/2024 7:[address] METAL [address] [facility] MCV 95 80 - 100 fL 06/26/2024 7:[address] MET[address] [facility] Blood BLOOD SPECIMEN / Unknown Venipuncture / Unknown 06/26/2024 7:16 AM SHEET METAL CONTRACTOR 06/26/2024 7:34 AM SHEET METAL CONTRACTOR us Arun Martinez MD HEMATOLOGY Final Res ult Performing Organization Address City/[facility] Co de Phone Number [facility] SENDOUT INTERNAL ZIP [phone] [place] [phone] * (ABNORMAL) SODIUM (06/26/2024 7:16 AM SHEET METAL CONTRACTOR) Only the most recent of2 resultswithin the time period is included. SODIUM 135(L) 136 - 145 mmol/L 06/26/2024 8:[address] [facility] Blood BLOOD SPECIMEN / Unknown Venipuncture / Unknown 06/26/2024 7:16 AM SHEET METAL CONTRACTOR 06/26/2024 7:34 AM SHEET METAL CONTRACTOR us Arun Martinez MD CHEMISTRY Final Res ult Performing Organization Address [facility] Phone Number [facility] SENDOUT INTERNAL ZIP [phone] [place] [phone] * POTASSIUM (06/26/2024 7:16 AM SHEET METAL CONTRACTOR) Only the most recent of2 resultswithin the time period is included. POTASSIUM 4.0 3.5 - 5.1 mmol/L 06/26/2024 8:[address] [facility] Blood BLOOD SPECIMEN / Unknown Venipuncture / Unknown 06/26/2024 7:16 AM SHEET METAL CONTRACTOR 06/26/2024 7:34 AM SHEET METAL CONTRACTOR us Arun Martinez MD CHEMISTRY Final Res ult Performing Organization Address [facility] Co de Phone Number [facility] SENDOUT INTERNAL ZIP [phone] [place] [phone] * MAGNESIUM (06/26/2024 7:16 AM SHEET METAL CONTRACTOR) Only the most recent of4 resultswithin the time period is included. MAGNESIUM 2.2 1.6 - 2.4 mg/dL 06/26/2024 8:00 [address] METAL [address] [facility] Blood BLOOD SPECIMEN / Unknown Venipuncture / Unknown 06/26/2024 7:16 AM SHEET METAL CONTRACTOR 06/26/2024 7:34 AM SHEET METAL CONTRACTOR us Arun Martinez MD CHEMISTRY Final Res ult [facility] SENDOUT INTERNAL ZIP [phone] [place] [address] * SCAN-CARDIAC STRIP (06/25/2024 8:41 PM SHEET METAL CONTRACTOR) us Scanner OTHER Final Result * (ABNORMAL) VITAMIN D 25 (DEFICIENCY) (05/27/2024 12:29 PM SHEET METAL CONTRACTOR) VITAMIN D,25-OH,TOTAL,IA 19(L) 30 - 100 ng/mL [employer] [facility]Lizbeth Villanueva Comment: Vitamin D Status 25-OH Vitamin D: Deficiency: <20 ng/mL Insufficiency: 20 - 29 ng/mL Optimal: > or = 30 ng/mL For 25-OH Vitamin D testing on patients on D2-supplementation and patients for whom quantitation of D2 and D3 fractions is required, the QuestAssureD() 25-OH VIT D, (D2,D3), LC/MS/MS is recommended: order code [id number] (patients >2yrs). See Note 1 Note 1 For additional information, please refer to http://education.[employer]/faq/EYA967 (This link is being provided for informational/ educational purposes only.) Blood BLOOD SPECIMEN / Unknown 05/27/2024 12:29 PM SHEET METAL CONTRACTOR 05/27/2024 12:29 PM SHEET METAL CONTRACTOR us Shelia Dietrich DO SEND OUTS Final Resu lt [place] [address] [place] [address], [employer] [facility] [address] [place] [address] * (ABNORMAL) BASIC METABOLIC PANEL (05/27/2024 12:29 PM SHEET METAL CONTRACTOR) Only the most recent of3 resultswithin the time period is included. GLUCOSE 97 65 - 99 mg/dL [facility] [facility] Comment: Fasting reference interval UREA NITROGEN (BUN) 31(H) 7 - 25 mg/dL [facility] CREATININE 4.66(H) 0.70 - 1.35 mg/dL [facility] EGFR 13(L) > OR = 60 mL/min/1.7 3m2 [facility] BUN/CREATININE RATIO 7 6 - 22 (calc) [facility] SODIUM 136 135 - 146 mmol/L [facility] POTASSIUM 5.1 3.5 - 5.3 mmol/L [facility] CHLORIDE 97(L) 98 - 110 mmol/L [facility] CARBON DIOXIDE 23 20 - 32 mmol/L [facility] ELECTROLYTE BALANCE 16 7 - 17 mmol/L (calc) [facility] CALCIUM 9.6 8.6 - 10.3 mg/dL [employer] [facility] Blood BLOOD SPECIMEN / Unknown 05/27/2024 12:29 PM SHEET METAL CONTRACTOR 05/27/2024 12:29 PM SHEET METAL CONTRACTOR us Shelia Dietrich DO CHEMISTRY Final Resu lt [facility] [address] [place] [address], [facility] [address] [place] [address] * CT Chest without contrast (05/24/2024 1:53 PM SHEET METAL CONTRACTOR) Anatomical Region Laterality Modality CHEST, THORAX, HEART Computed To mography 05/24/2024 2:26 PM SHEET METAL CONTRACTOR Impressions 05/24/2024 2:26 PM SHEET METAL CONTRACTOR 1. No significant change in the large [...] PM (Electronically Signed) Narrative 05/24/2024 2:26 PM SHEET METAL CONTRACTOR For Patients: As a result of the [...] [facility] FINDINGS: Stable right-sided dual lumen [...] or atelectasis at the left lung base [id number] series 4. Subpleural fibrosis at the lung [...] REAL TIME PCR QUANT (05/20/2024 1:58 PM SHEET METAL CONTRACTOR) [facility] HBV IU mL HBV DNA not detected IU/mL 05/23/2024 6:06 PM SHEET METAL CONTRACTOR [facility] log10 HBV IU mL 05/23/2024 6:06 PM SHEET METAL CONTRACTOR [facility] ([facility]) Comment: Unable to calculate result since non-numeric result obtained for component test. HBV Test Info Comment 05/23/2024 6:06 PM SHEET METAL CONTRACTOR [facility]) Comment:The reportable range for this assay is 10 IU/mL to 1 billion IU/mL. Blood BLOOD SPECIMEN / Unknown Non-Lab Venipuncture / Unknown 05/20/2024 1:58 PM SHEET METAL CONTRACTOR 05/20/2024 2:09 PM SHEET METAL CONTRACTOR Narrative [facility] ([facility]) - 05/23/2024 6:06 PM SHEET METAL CONTRACTOR Performed at: - [facility] [address] [place] [phone] Application Packaging Specialist: Basilio Oden MD, Phone: [phone] us Jasvir Parrish MD SEND OUTS Final Re sult [facility] ([facility]) [facility] [place] [address], [place] * (ABNORMAL) RENAL FUNCTION PANEL (05/20/2024 1:58 PM SHEET METAL CONTRACTOR) [facility] SODIUM 132(L) 136 - 145 mmol/L 05/20/2024 2:39 PM [facility] POTASSIUM 4.0 3.5 - 5.1 mmol/L 05/20/2024 2:39 PM [facility] CHLORIDE 96(L) 98 - 107 mmol/L 05/20/2024 2:39 PM [facility] CO2,TOTAL 20(L) 22 - 29 mmol/L 05/20/2024 2:39 PM [facility] ANION GAP 16 5 - 18 05/20/2024 2:39 PM [facility] GLUCOSE 119(H) 70 - 99 mg/dL 05/20/2024 2:39 PM [facility] CALCIUM 8.8 8.8 - 10.4 mg/dL 05/20/2024 2:39 PM [facility] Comment: Reference ranges for this test were updated on 03/30/2024 to reflect our healthy population more accurately. Reference range changes are not retroactively applied to results, but previous results using the same methodology can be interpreted in the context of the new reference range. BUN 40(H) 8 - 23 mg/dL 05/20/2024 2:39 PM [facility] CREATININE 4.41(H) 0.70 - 1.20 mg/dL 05/20/2024 2:39 PM [facility] BUN/CREAT RATIO 9(L) 10 - 20 2:39 PM [facility] eGFR 14(L) >90 mL/min/1. 73m2 05/20/2024 2:39 PM [facility] Comment:As of 2021, eG FR is calculated by the CKD-EPI creatinine equation without race adjustment. eGFR can be influenced by muscle mass, exercise, and diet. The reported eGFR is an estimation only and is only applicable if the renal function is stable. PHOSPHORUS 4.0 2.5 - 4.5 mg/dL 05/20/2024 2:39 PM [facility] ALBUMIN 3.7(L) 4.0 - 4.9 g/dL 05/20/2024 2:39 PM SHEET METAL CONTRACTOR [facility] Blood BLOOD SPECIMEN / Unknown Non-Lab Venipuncture / Unknown 05/20/2024 1:58 PM SHEET METAL CONTRACTOR 05/20/2024 2:08 PM SHEET METAL CONTRACTOR us Sheyla Aparicio MD CHEMISTRY Final Resu lt [facility] [address] [place] [address], [place] * (ABNORMAL) CBC W PLT NO DIFF (05/20/2024 1:57 PM SHEET METAL CONTRACTOR) Only the most recent of3 resultswithin the time period is included. WHITE BLOOD COUNT 11.4(H) 4.5 - 11.0 thou/cu mm 05/20/2024 2:14 PM SHEET METAL CONTRACTOR [facility] RED BLOOD COUNT 2.71(L) 4.30 - 5.90 mil/cu mm 05/20/2024 2:14 PM SHEET METAL CONTRACTOR [facility] HEMOGLOBIN 8.7(L) 13.5 - 17.5 g/dL 05/20/2024 2:14 PM [facility] HEMATOCRIT 26.2(L) 37.0 - 53.0 % 05/20/2024 2:14 PM SHEET METAL CONTRACTOR [facility] MCV 97 80 - 100 fL 05/20/2024 2:14 PM SHEET METAL CONTRACTOR [facility] MCH 32.1 26.0 - 34.0 pg 05/20/2024 2:14 PM SHEET METAL CONTRACTOR [facility] MCHC 33.2 32.0 - 36.0 g/dL 05/20/2024 2:14 PM SHEET METAL CONTRACTOR [facility] RDW 12.5 11.5 - 15.5 % 05/20/2024 2:14 PM [facility] PLATELET COUNT 279 140 - 440 thou/cu mm 05/20/2024 2:14 PM [facility] MPV 11.8(H) 6.5 - 11.0 fL 05/20/2024 2:14 PM SHEET METAL CONTRACTOR [facility] NRBC 0.0 % 05/20/2024 2:14 PM SHEET METAL CONTRACTOR [facility] ABS NRBC 0.0 thou /cu mm 05/20/2024 2:14 PM SHEET METAL CONTRACTOR [facility] Blood BLOOD SPECIMEN / Unknown Non-Lab Venipuncture / Unknown 05/20/2024 1:57 PM SHEET METAL CONTRACTOR 05/20/2024 2:08 PM SHEET METAL CONTRACTOR Dipak Hendrickson MD HEMATOLOGY Final Resu lt Performing Organization Address City/[facility]/ZIP Co de Phone Number [facility] [address] [place] [address], * (ABNORMAL) PHOSPHORUS (05/19/2024 3:27 PM SHEET METAL CONTRACTOR) Only the most recent of2 resultswithin the time period is included. PHOSPHORUS 2.1(L) 2.5 - 4.5 mg/dL 05/19/2024 4:13 PM SHEET METAL CONTRACTOR [facility] Blood BLOOD SPECIMEN / Unknown Butterfly / Unknown 05/19/2024 3:27 PM SHEET METAL CONTRACTOR 05/19/2024 3:32 PM SHEET METAL CONTRACTOR Dipak Hendrickson MD CHEMISTRY Final Resu lt Performing Organization Address City/[facility]/ZIP Co de Phone Number [facility] [address] [place] [address], * (ABNORMAL) GLUCOSE METER (05/18/2024 11:30 PM SHEET METAL CONTRACTOR) Only the most recent of2 resultswithin the time period is included. GLUCOSE METER 105(H) 65 - 100 mg/dL 05/18/2024 11:32 PM SHEET METAL CONTRACTOR [facility] Blood BLOOD SPECIMEN / Unknown 05/18/2024 11:30 PM SHEET METAL CONTRACTOR 05/18/2024 11:32 PM SHEET METAL CONTRACTOR us Doctor Unknown CHEMISTRY Final Result [facility] [address] [place] [address], [place] * HCV RT-PCR, QUANT (NON-GRAPH) [facility] (05/18/2024 10:30 AM SHEET METAL CONTRACTOR) Pathologist [facility] Hep C Qn HCV Not Detected IU/mL 05/22/2024 2:06 PM SHEET METAL CONTRACTOR [facility]) HCV Test Info Comment 05/22/2024 2:06 PM SHEET METAL CONTRACTOR [facility] ([facility]) Comment:The quantitative ran ge of this assay is 15 IU/mL to 100 million IU/mL. Blood BLOOD SPECIMEN / Unknown Venipuncture / Unknown 05/18/2024 10:30 AM SHEET METAL CONTRACTOR 05/18/2024 10:35 AM SHEET METAL CONTRACTOR Narrative [facility] - 05/22/2024 2:06 PM SHEET METAL CONTRACTOR Performed at: - [facility] [address] [phone] Application Packaging Specialist: Basilio Oden MD, Phone: [phone] us Osmani Ceron MD LABORATORY Final Resul t [facility] ([facility]) [facility] [place] [address], [place] * (ABNORMAL) BLOOD GAS,VENOUS (05/18/2024 4:58 AM SHEET METAL CONTRACTOR) Pathologist [facility] PH, VENOUS 7.41 7.32 - 7.43 05/18/2024 5:34 AM SHEET METAL CONTRACTOR [facility] PCO2, VENOUS 39(L) 41 - 51 mmHg 05/18/2024 5:34 AM SHEET METAL CONTRACTOR [facility] PO2, VENOUS 43(H) 35 - 40 mmHg 05/18/2024 5:34 AM SHEET METAL CONTRACTOR [facility] HCO3,VENOUS 25 22 - 29 mmol/L 05/18/2024 5:34 AM SHEET METAL CONTRACTOR [facility] BASE EXCESS, VENOUS, POCT 0.1 -2.0 - 3.0 05/18/2024 5:34 AM SHEET METAL CONTRACTOR [facility] O2 SATURATION, VENOUS 76(H) 70 - 75 % 05/18/2024 5:34 AM SHEET METAL CONTRACTOR [facility] PATIENT TEMPERATURE 37.0 Degrees C 05/18/2024 5:34 AM SHEET METAL CONTRACTOR [facility] Blood VENOUS BLOOD SPECIMEN / Unknown Venipuncture / Unknown 05/18/2024 4:58 AM SHEET METAL CONTRACTOR 05/18/2024 5:30 AM SHEET METAL CONTRACTOR us Dipak Hendrickson MD CHEMISTRY Final Resu lt Performing Organization Address City/[facility]/ZIP Co de Phone Number [facility] [address] [place] [address], * (ABNORMAL) ANTI HCV (04/28/2024 5:01 AM SHEET METAL CONTRACTOR) HEPATITIS C ANTIBODY Reactive, Preliminary Positive(A) Non-React odette 04/28/2024 9:[address] [facility] Comment:Presumptive evidence of antibodies to HCV. Reflexed to HCV RNA Quant (See separate report). Blood BLOOD SPECIMEN / Unknown Venipuncture / Unknown 04/28/2024 5:01 AM SHEET METAL CONTRACTOR 04/28/2024 5:17 AM SHEET METAL CONTRACTOR us Zaheer Valerio MD SEND OUTS Final Result Performing Organization Address City/[facility]/ZIP Co de Phone Number [facility] [address] [place] [address], from Last 3 Months or Most Recently Relevant to Health Maintenance Insurance [facility] [...] Code Status Discussion: Reviewed Preferences Care Teams Colon Therapist Relationship Specialty Start Date End Date Shelia [place] [address] PCP - General Family Practice 06/18/23 Pcp, No . 05/18/23
--- OUTSIDE RECORDS SUMMARY | 2024-08-16 15:00 | XMS_ITS | Clinical Summary ---
Author Organization [facility] Address [address] [facility] [place] [address] Care Team Providers Care Network Management Specialist Name Role Phone [facility] Primary [facility] Provider Allergies Active Allergy Reactions [...] on file Legal Sex Male 9:52 PM SOIL CONSERVATION AIDE Gender Identity Not on file Sexual Orientation Not on file Last Filed Vital Signs Vital Sign Reading Time Taken Comments Blood Pressure 116/67 07/31/2023 3:45 PM SOIL CONSERVATION AIDE Pulse 49 07/31/2023 3:45 PM SOIL CONSERVATION AIDE Temperature 36.4 C (97.5 F) 07/31/2023 3:15 PM SOIL CONSERVATION AIDE Respiratory Rate 16 07/31/2023 3:20 PM SOIL CONSERVATION AIDE Oxygen Saturation 95% 07/31/2023 3:45 PM SOIL CONSERVATION AIDE Inhaled Oxygen Concentration - - Weight 54.5 kg (120 lb 3.2 oz) 07/31/2023 12:05 PM SOIL CONSERVATION AIDE Height 172.7 cm (5' 7.99) 07/31/2023 12:[address] Body Mass Index 18.28 07/31/2023 12:05 PM SOIL CONSERVATION AIDE Plan of Treatment Health Maintenance Due Date Last Done Comments ADVANCE CARE PLANNING 1960 ANNUAL REVIEW OF HM ORDERS 1960 CT COLONOGRAPHY 1960 DIABETES SCREENING 1960 FIT 1960 FLEX SIG 1960 LIPID 1960 sDNA (Cologuard) 1960 YEARLY PREVENTIVE VISIT [...] patient's age to complete this topic Insurance [facility] Care Teams Network Management Specialist Relationship Specialty Start Date End Date Clinic, [address] [address] PCP - General 07/31/23
--- NOTE | 2024-08-16 15:08 | ED_ITS ---
HPI - General Adult General Date Seen: 08/16/24 Chief complaint: Shortness of Breath/Dyspnea Stated complaint: shortness of Breath Time Seen by Provider: 08/16/24 15:03 History of Present Illness HPI narrative: 63-year-old male with a history of end-stage renal disease on dialysis is brought to the ER today from his dialysis by EMS for evaluation of shortness of breath and dyspnea on exertion. History from the patient is very limited. He is fairly angry (about the healthcare system in general and the fact that he never gets and chance to see his primary care provider in clinic, and also about life) and results only is fairly defiant and flippant when I try to get HPI from him. Per report the patient does live in his own apartment and has a roommate. He says that he has been asking his doctors to put him in a [place] [facility] for a while but ?they will not. ?. At the same time he says that if he needs to go in the hospital he does not want to lose his apartment because his roommate depends on him. It sounds like he is a smoker but he will not tell me how much. It sounds like he is a drinker but he would not tell me how much. He says ?when I drink, I drink to get drunk. I do not count the beers. ? He will tell me how often he drinks. He says that he started to feel little bit short of breath early this morning but went to dialysis. He was hoping that going to dialysis would help his breathing get better. It sounds like he has these episodes of shortness of breath from time to time but he can not tell me how often they happened or what triggers them. It sounds like he has a nebulizer which he uses from time to time. He does not really know if he has a diagnosis of COPD or not. He did use a nebulizer this morning before dialysis and he says maybe it helped a little. In addition to shortness of breath he has a cough. It sounds like cough is chronic and nonproductive. Is not really changed in his sputum production. He says he does not know if he had a has a fever but he does not think so. He says he is not having any chest pain but does have some pain in the right lateral ribs. When I ask, how long it has been there he says, ?I do not know!. It sounds like that pain has been there at least 5 years or more. He does do dialysis Friday. He made all of his dialysis runs last weeks and he knows that it is important for him to go to every dialysis. He says when I missed dialysis, I went up in the hospital. He went to his dialysis today and it sounds like he completed his run. He does not have any new swelling in his ankles. He does make some urine and says that his urination has been normal. He does volunteer that his urination does not sting. Past medical history includes end-stage renal disease on dialysis, hypertension, coronary artery disease, pulmonary hypertension, CHF with reduced ejection fraction, he tobacco use, alcohol use disorder, COPD, adrenal nodule. He also has a history of missing dialysis which lid has lead to problems such as hyperkalemia, CHF. Most recent hospitalization at [facility] was in May 2024 for hyperkalemia in the setting of missing dialysis. Related Data Home Medications ?Medication ?Instructions ?Recorded ?Confirmed carvedilol 12.5 mg tablet 6.25 mg PO BID 05/18/23 08/16/24 aspirin 81 mg chewable tablet 1 tab PO DAILY 05/17/24 08/16/24 atorvastatin 40 mg tablet 40 mg PO QPM 05/17/24 08/16/24 bumetanide 2 mg tablet 2 mg PO DAILY 05/17/24 08/16/24 multivitamin with folic acid 400 1 tab PO DAILY 05/17/24 08/16/24 mcg tablet (Daily-Ernestina (with folic acid)) Allergies Allergy/AdvReac Type Severity Reaction Status Date / Time ranitidine AdvReac itch Verified 08/16/24 15:09 [facility] Medical History Altered mental status ?R41.82 - Altered mental status, unspecified (ICD-10) Non-STEMI (non-ST elevated myocardial infarction) ?I21.4 - Non-ST elevation (NSTEMI) myocardial infarction (ICD-10) Smoking ?F17.200 - Nicotine dependence, unspecified, uncomplicated (ICD-10) Alcohol use disorder ?F10.90 - Alcohol use, unspecified, uncomplicated (ICD-10) COPD (chronic obstructive pulmonary disease) ?J44.9 - Chronic obstructive pulmonary disease, unspecified (ICD-10) Coronary artery disease ?I25.10 - Atherosclerotic heart disease of [place] coronary artery without angina pectoris (ICD-10) Stage 4 chronic kidney disease ?N18.4 - Chronic kidney disease, stage 4 (severe) (ICD-10) Pulmonary hypertension ?I27.20 - Pulmonary hypertension, unspecified (ICD-10) Right heart failure ?I50.810 - Right heart failure, unspecified (ICD-10) Heart failure with reduced ejection fraction ?I50.20 - Unspecified systolic (congestive) heart failure (ICD-10) Social History Narrative: Patient apparently lives in an apartment in [place]. Smokes a pack of cigarettes a day. He has a history of alcohol abuse but current consumption is unknown. Unable to discuss plan of care or goals of care What is your current living situation?: unable to answer Problems where you live: unable to answer Problems where you live details: unknown In the past 12 months, utilities in danger of being shut off: unable to answer In past 12 months, lack of transportation kept you from medical appts, meetings, work, or getting things needed for daily living: unable to answer In the past 12 mos, have been you worried that your food would run out before you had money to buy more?: unable to answer In the past 12 mos, the food you bought just didn't last and you didn't have money to buy more?: unable to answer Highest level of school completed/degree received: don't know Smoking Status: Current every day smoker Do you use any of these nicotine containing products: None Second hand tobacco smoke exposure: Yes How often do you have a drink containing alcohol: 4 or more times a week AUDIT-C Alcohol total score: 4 Non-prescribed substance use: denies use Non-prescribed substance use details: unknown How often does anyone, including family, friends and others, physically hurt you : unable to answer How often does anyone, including family, friends and others, insult or talk down to you: unable to answer How often does anyone, including family, friends and others, threaten you with harm: unable to answer How often does anyone, including family, friends and others, scream or curse at you: unable to answer service: No Exam Narrative: Exam Narrative: Constitutional: Appears well-developed and well-nourished. Alert. Conversant. Non toxic. HENT: Head: Atraumatic. Nose: Nose normal. Nasal cannula in place-3 liters/minute. Mouth/Throat: Oral mucosa is clear and moist. no trismus. Pharynx normal. Has a Bushy calvin. Eyes: Conjunctivae normal. EOM normal. Pupils equal, round, and reactive to light. No scleral icterus. Neck: Normal range of motion. Neck supple. No tracheal deviation present. Cardiovascular: Normal rate, regular rhythm. No gallop. No friction rub. No murmur heard. Symmetric radial artery pulses . Dialysis catheter in right upper chest. Skin around the insertion site looks good Pulmonary/Chest: Effort normal. No stridor. No respiratory distress. No wheezes. No rales. No rhonchi . Right lateral chest wall tenderness. Abdominal: Soft. Bowel sounds normal. No distension. No mass. No tenderness. No rebound. No guarding. Musculoskeletal: RUE: Normal range of motion. No tenderness. No deformity LUE: Normal range of motion. No tenderness. No deformity RLE: Normal range of motion. No edema. No tenderness. No deformity LLE: Normal range of motion. No edema. No tenderness. No deformity Neurological: Alert and oriented to person, place, and time. Normal strength. CN II-VII intact. No sensory deficit. GCS eye subscore is 4. GCS verbal subscore is 5. GCS motor subscore is 6. Normal coordination Skin: Skin is warm and dry. No rash noted. No pallor. Normal capillary refill. Psychiatric: Somewhat angry and defiant. Does not want to answer many of my questions. Const: Vital Signs, click to edit/add: Vital Signs - 24 hr 08/16/24 15:00 08/16/24 15:20 08/16/24 15:30 Temperature 96.7 F L Pulse Rate 92 91 Pulse Rate [Right Pulse Oximeter] 95 Respiratory Rate 18 9 L 22 Blood Pressure Blood Pressure [Ri ght Upper Arm] 155/105 H Pulse Oximetry 93 94 94 Oxygen Delivery Me thod Nasal Cannula Oxygen Flow Rate 3 08/16/24 15:32 08/16/24 15:45 08/16/24 16:00 Temperature Pulse Rate 91 81 100 Pulse Rate [Right Pulse Oximeter] Respiratory Rate 22 24 Blood Pressure 139/112 H Blood Pressure [Ri ght Upper Arm] Pulse Oximetry 93 92 94 Oxygen Delivery Me thod Oxygen Flow Rate 08/16/24 16:50 Temperature Pulse Rate Pulse Rate [Right Pulse Oximeter] Respiratory Rate 16 Blood Pressure Blood Pressure [Ri ght Upper Arm] Pulse Oximetry Oxygen Delivery Me thod Nasal Cannula Oxygen Flow Rate 2 Course Course ED Course: Recheck-patient is hemodynamically stable. Breathing on oxygen via nasal cannula. He is belligerent with x-rays staff who came to get him. I responded to his room. We discussed again his frustrations about never being able to get into his PCP office. Ultimately, I tried to redirect him to the issue at hand that he is hypoxic and short of breath today. Ultimately he is willing to get evaluation and treatment here in the ER, even though he is frustrated that we ask him the same questions as they always do. He agrees to get a chest x-ray. He will go in his bed with oxygen via nasal cannula. Reevaluation(s) Reevaluation #1: Recheck-down from 3 L to 2 L nasal cannula. Sats in the low 90s. Says he is feeling reasonably well when sitting up in bed but gets very short of breath with any movement or exertion. Reevaluation #2: Recheck-he is calmer now. Will be more conversant. He is willing to have workup and chest x-ray. Reevaluation #3: Recheck maintaining sats on nasal cannula but does get very dyspneic when he tries to get up at the bedside. He agrees to be hospitalized. Recheck-updated patient. He has been accepted by hospitalist at [facility]. Vital Signs Vital signs: Initial Vital Signs Temperature 96.7 F L 08/16/24 15:00 Temperature Source Temporal Artery Scan 08/16/24 15:00 Pulse Rate 95 08/16/24 15:00 Pulse Rhythm Regular 08/16/24 15:00 Pulse Strength 3+ Normal 08/16/24 15:00 Respiratory Rate 18 08/16/24 15:00 Blood Pressure 155/105 H 08/16/24 15:00 Blood Pressure Mean 121 H 08/16/24 15:00 Blood Pressure Position Semi-Fowlers 08/16/24 15:00 Pulse Oximetry 93 03/24/25 15:00 Oxygen Delivery Method Nasal Cannula 08/16/24 15:00 Oxygen Flow Rate 3 08/16/24 15:00 Vital Signs Temperature 96.7 F L 08/16/24 15:00 Pulse Rate 95 08/16/24 15:00 Respiratory Rate 18 08/16/24 15:00 Blood Pressure 155/105 H 08/16/24 15:00 Pulse Oximetry 93 08/16/24 15:00 Oxygen Delivery Method Nasal Cannula 08/16/24 15:00 Oxygen Flow Rate 3 08/16/24 15:00 Temperature 96.7 F L 08/16/24 15:00 Pulse Rate 100 08/16/24 16:00 Respiratory Rate 16 08/16/24 16:50 Blood Pressure 139/112 H 08/16/24 15:32 Pulse Oximetry 94 08/16/24 16:00 Oxygen Delivery Method Nasal Cannula 08/16/24 16:50 Oxygen Flow Rate 2 08/16/24 16:50 Medications Administered Medications: Discontinued Medications Generic Name Dose Route Start Last Admin Trade Name Freq PRN Reason Stop Dose Admin Albuterol/Ipratropium 1 neb 08/16/24 15:41 08/16/24 16:38 Iprat-Albut 0.5-2.5 Mg/3 Ml Neb IH 08/16/24 15:42 1 neb ONCE ONE Administration Furosemide 40 mg 08/16/24 17:58 08/16/24 18:04 Furosemide 10 Mg/Ml Inj IVP 08/16/24 17:59 40 mg ONCE ONE Administration Medical Decision Making [facility] Narrative Medical decision making narrative: 63-year-old male with a complex past history is brought to the ER today by EMS from his dialysis center today after he completed his dialysis run but developed worsening shortness of breath. He was hypoxic requiring nasal cannula by EMS. He is not normally on oxygen at home. 1. Social. The patient is very frustrated and angry about his chronic medical problems and is angry about being here in the ER today. This limits his willingness to even provide a cogent history and makes it more difficult to make sure were getting the right diagnosis. 2. Pulmonary. He is hypoxic on room air but is saturating well onnasal cannula. Initially arrived on 3 L for EMS but we were able to wean him down to 2 L to keep his sats above 92. He is a smoker. He denies any previous knowledge of COPD diagnosis but it sounds like he has a nebulizer at home. He apparently received a neb per EMS today. Lung sounds here in the ER were fairly clear and not wheezy. Venous blood gas shows a respiratory alkalosis which would argue against COPD exacerbation. Influenza/COVID PCR is negative. He does have a chronic cough which is nonproductive. He says it is not any worse or better than normal. Chest x-ray shows potential infection, although more likely developing pulmonary edema. White count is normal today, although is typically elevated with recent measurements. He is not febrile. At this point no clear definitive evidence for a pneumonia. The patient does not feel like he has pneumonia. Using shared decision making we decided to hold off on antibiotics for now. 3. Cardiac. Has a known history of CHF and apparently has had fluid overload in the past when he has missed dialysis. However he has been very consistent on going to his dialysis today and last week. Chest x-ray today does show signs of probable pulmonary edema[place] [address]. This tends to be in his range of chronically elevated levels. Troponin is mildly abnormal at 0.05. Cause of the pulmonary edema is unclear. Suspect due to chronic renal failure, however he has not missed any dialysis sessions lately. Blood pressure was mildly hypertensive at presentation but came down without pharmacologic therapy to 130/112. At this point I really do not think we have room to do high dose nitro drip. He does normally makes some urine. He is normally on Bumex 2 mg daily, in addition to his dialysis run. We administer Lasix IV here in the ER to try to promote diuresis. At this point oxygen sats are in the mid 90s on 2 L nasal cannula. He is breathing comfortably while sitting up in bed but does get symptomatic with short of breath with any exertion. He is not breathing well enough to discharge home. He will require hospitalization. Unfortunately he cannot be hospitalized here in [place] because we do not have dialysis capability. Therefore transfer is indicated. His primary care provider is through the [facility] system so we did conduct tacked the [facility] transfer line. There are no beds at [facility] but they do have a bed at [facility] in [facility] which would have cardiac tele beds and dialysis capability for this patient. He is accepted at 6:[address] Ayala. Unfortunately there may be up to an 8 hour delay before he can be assigned a bed and subsequently transferred to [facility]. Discussed with my partner Dr. Sher will monitor the patient here in the ER until his bed is assigned. 4. Renal/electrolytes electrolytes are well balanced. Potassium 3.8. On labs after his dialysis run today BUN is 17, creatinine 2.7. 5. Endocrine. Glucose normal. Lab Data Labs: Lab Results 08/16/24 08/16/24 Range/Units 16:18 16:30 WBC 9.46 (4.50-11.00) K/uL RBC 3.76 L (4.30-5.90) m/uL Hgb 11.9 L (13.5-17.5) gm/dL Hct 35.9 L (37.0-53.0) % MCV 96 (80-100) fL MCH 32 (26-34) pg MCHC 33 (32-36) gm/dL RDW Coeff of Martir 14.5 (11.5-15.5) % Plt Count 263 (140-440) K/uL Neut % (Auto) 72.5 H (42.0-72.0) % Lymph % (Auto) 12.9 L (20-44) % Greene % (Auto) 8.6 (0.0-11.0) % Eos % (Auto) 5.2 (0.0-7.0) % Baso % (Auto) 0.5 (0.0-3.0) % Neut # (Auto) 6.90 (1.7-7.0) K/uL Lymph # (Auto) 1.20 (0.90-2.90) K/uL Greene # (Auto) 0.80 (0.00-0.90) K/UL Eos # (Auto) 0.49 (0.00-0.50) K/uL Baso # (Auto) 0.05 (0.00-0.30) K/uL Abs Immat Gran (auto) 0.03 (0.00-0.30) K/uL Imm/Tot Granulo (auto) 0.3 % VBG pH 7.456 H (7.32-7.43) VBG pCO2 32 L (40-50) mmHG VBG pO2 46.9 (25-47) mmHG VBG HCO3 23 (21-28) mmol/L Sodium 137 (135-149) mmol/L Potassium 3.8 (3.6-5.1) mmol/L Chloride 103 (96-114) mmol/L Carbon Dioxide 21 (20-32) mmol/L Anion Gap 13 (7-15) mEq/L BUN 17 (7-30) mg/dL Creatinine 2.7 H (0.5-1.5) mg/dL Estimated Creat Clear 22.28 Estimated GFR 26 ml/min Glucose 88 (60-115) mg/dL Calcium 9.0 (8.4-10.6) mg/dL Troponin I 0.05 H (0.01-0.04) ng/mL NT-Pro-B Natriuret Pep 17464 pg/mL SARS-CoV-2 (PCR) Negative SARS-CoV-2 (Negative) Influenza Type A (PCR) Negative PCR FLU A (Negative) Influenza Type B (PCR) Negative PCR FLU B (Negative) Imaging Data Chest x-ray: Attestation: I have reviewed the pertinent imaging results. Radiologist's impression: IMPRESSION: Likely interstitial and developing alveolar edema. Superimposed infectious process is considered in the differential. ECG Data Attestation: I personally reviewed and interpreted this ECG as follows: Interpretation: Normal sinus rhythm Rate: 96 WV: 166 QRS axis: Normal axis. Voltage criteria for left ventricular hypertrophy. ST segment/T wave: Artifact in leads V1, V2, V3. Of note patient is angry and uncooperative and will not hold still for good EKG despite coaching from myself and nursing staff. This at the best EKG we can get. He has nonspecific T-wave changes in leads V4-V6 as well as lead 2 and AVF which I think is strain pattern due to LVH. No definite ischemic appearing ST elevation or depression. QTc: Prolonged QT. QTC is 528 No definite change compared to 06/29/2024 Discharge Plan Discharge Clinical Impression: CHF (congestive heart failure), Hypoxia, Chronic renal failure, Elevated troponin Patient Disposition: Xfer Other Prescriptions: No Action carvedilol 12.5 mg tablet 6.25 mg PO BID atorvastatin 40 mg tablet 40 mg PO QPM aspirin 81 mg tablet,chewable 1 tab PO DAILY multivitamin with folic acid [Daily-Ernestina (with folic acid)] 400 mcg tablet 1 tab PO DAILY bumetanide 2 mg tablet 2 mg PO DAILY Stand Alone Forms: [facility] Info Instructions
--- NOTE | 2024-08-16 15:37 | CRLHL7_ITS ---
For Patients: As a result of the Century Cures Act, medical imaging exams and procedure reports are released immediately into your electronic medical record. You may view this report before your referring provider. If you have questions, please contact your health care provider. INDICATION: Chest pain.dyspnea, CRF on dialysis, chornic cough TECHNIQUE: Chest 2 views. COMPARISON: Exams dating back to 2023. FINDINGS: Lungs: Right lung volume loss. No consolidation. Vascular redistribution and indistinctness. Pleura: No pleural effusion or pneumothorax. Heart and Mediastinum: Normal heart size. The great vessels of the thorax are unremarkable. Right-sided dual-lumen HD catheter with tip overlying the expected location of the low SVC. Bones: No acute displaced osseous process. Old right-sided rib fractures. IMPRESSION: Likely interstitial and developing alveolar edema. Superimposed infectious process is considered in the differential. Dictated by Martinez Rand MD @ 08/16/2024 4:33:48 PM (Electronically Signed)
--- OUTSIDE RECORDS SUMMARY | 2024-08-16 15:53 | XMS_ITS | Clinical Summary ---
Author Organization [place] Address [address] [facility] 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 Gender Identity Not on file Sexual Orientation Not on file Last Filed Vital Signs Vital Sign Reading Time Taken Comments Blood Pressure 116/67 07/31/2023 3:45 PM ASSISTANT SERVICE MANAGER Pulse 49 07/31/2023 3:45 PM ASSISTANT SERVICE MANAGER Temperature 36.4 C (97.5 F) 07/31/2023 3:15 PM ASSISTANT SERVICE MANAGER Respiratory Rate 16 07/31/2023 3:20 PM ASSISTANT SERVICE MANAGER Oxygen Saturation 95% 07/31/2023 3:45 PM ASSISTANT SERVICE MANAGER Inhaled Oxygen Concentration - - Weight 54.5 kg (120 lb 3.2 oz) 07/31/2023 12:05 PM ASSISTANT SERVICE MANAGER Height 172.7 cm (5' 7.99) 07/31/2023 12:[address] Body Mass Index 18.28 07/31/2023 12:05 PM ASSISTANT SERVICE MANAGER Plan of Treatment Health Maintenance Due Date [...] patient's age to complete this topic Insurance [facility] Care Teams Kitchenhand Relationship Specialty Start Date End Date Clinic, [address] [address] PCP - General 07/31/23
--- OUTSIDE RECORDS SUMMARY | 2024-08-16 15:53 | XMS_ITS | Encounter Summary ---
Author Organization [facility] Address [address] [place] [address] Care Team Providers Care Renal Medicine Physician Name Role Phone Unavailable Primary Care Provider Unavailabl e Encounter Details Date Type Department Care Team (Late st Contact Info) Description 08/09/2024 Orders Only Division of Nephrology and Hypertension in [place], [place] [address] [place] [address] Claudio Jain Jr., D.O. [address] [place] [address] Social History Tobacco Use Types Packs/Day Years Used Date Smoking Tobacco: Some Days Cigarettes Alcohol Use Standard Drinks/Week Comments Yes 0 [...] documented as of this encounter Visit Diagnoses Not on filedocumented in this encounter
--- OUTSIDE RECORDS SUMMARY | 2024-08-16 15:53 | XMS_ITS | Clinical Summary ---
Author Organization [facility] Address [address] [place] [address] Care Team Providers Care Nike Athlete Name Role Phone Unavailable Primary Care Provider Unavailabl e Source Comments Patient records contain information from all sites at [facility]. For routine questions regarding patient records, call [phone] during business hours, M-F 8:00 AM - 5:00 PM Central Time. Record requests for emergency care only can be directed to [phone] at any time.[facility] Allergies Active Allergy Reactions Criticality Noted Date Comments Ranitidine Hcl Blisters High 03/13/2023 Medications multivitamin-i talisha-FA (CENTRUM COMPLETE) 18-400 mg-mcg per tablet Take 1 tablet by mouth daily. Active acetaminophen (TYLENOL) 500 mg tablet Take 1 tablet (500 mg total) by mouth every 6 (six) hours as needed for mild pain or score 1-3 of 10 or fever (Notify service prior to first administration for fever). 023 Active carvediloL (COREG) 12.5 mg tablet Take 1 tablet (12.5 mg total) by mouth 2 (two) times a day with meals. 180 tablet 3 3 3:58 PM CDT 023 Active amLODIPine (NORVASC) 5 mg tablet Take 1 tablet (5 mg total) by mouth daily. 90 tablet 3 3 3:58 PM CDT 023 Active sodium bicarbonate 650 mg tablet Take 2 tablets (1,300 mg total) by mouth 3 (three) times a day. 180 tablet 3 023 Active nystatin (Nystop) 100,000 unit/gram powder Apply 1 Application topically 3 (three) times a day. Apply to his groin area 15 g 025 Active fluticasone propion-salmet Renee (Advair Diskus) 250-50 mcg/dose diskus inhaler Inhale 1 puff 2 (two) times a day. Rinse mouth with water after use to reduce aftertaste and incidence of candidiasis. Do not swallow. 60 each 11 025 Active levoFLOXacin (Levaquin) 250 mg tabletIndicati ons:Epididymit is Acute Take 1 tablet (250 mg total) by mouth as directed for 7 days. 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 07/23/2024 Orders Only Division of Nephrology and Hypertension, [facility], in [place], [place] [address] [place] [address] Danae Zelaya APRN, C.N.P., M.S.N. 07/21/2024 Orders Only Division of Nephrology and Hypertension, [place], [place] [address] [place] [address] Danae Zelaya APRN C.N.P., M.S.N. Epididymitis Acute (Primary Dx) from Last 3 Months Social History Tobacco Use Types Packs/Day Years [...] 1960 FIT 1960 Tobacco Cessation counseling 1960 RSV vaccine - (32-36 weeks) or 60+ years (1 - Risk 60-74 years 1-dose series) 2020 DTaP,Tdap,and Td Vaccines (2 - Td or [...] 05/31/2020, 02/05/2019 HIV Screening Completed 03/14/2023 Hepatitis B Screening Discontinued 03/14/2023 Hepatitis C Screening Completed 03/14/2023, 023 [...] SCREEN, PLASMA Timed 03/14/2023 6:31 PM CDT HEPATITIS B SURFACE ANTIGEN Timed 03/14/2023 6:31 PM CDT from Last [...] P.A.-C. LAB BLOOD ADD-ON Final Resu lt [facility] [address] [place] [address], [facility] [address] [place] [address] * HIV-1/-2 Ag and Ab Screen, Plasma (03/14/2023 6:31 PM CDT) [facility] HIV-1/-2 Ag and Ab Screen, P Negative Negative 03/14/2023 9:01 PM CDT [facility] Comment: Negative result does not rule out HIV infection. If exposure to HIV infection occurred <14 days ago, contact the laboratory to request addition of HIV-1/HIV-2 RNA detection, Plasma (HIP12). Blood (Blood, Venous) 03/14/2023 6:31 PM CDT 03/14/2023 8:20 PM CDT Sonido Wooten P.A.-C. LAB MICROBIOLOGY - BLOOD OR DERABLES Final Result Performing Organization Address City/[facility]/ZIP Co de Phone Number [facility] [address] [place] [address] [facility] [address] [place] [address] * (ABNORMAL) HCV Ab Scrn w/Reflex to HCV PCR, Serum (03/14/2023 6:31 PM CDT) HCV Ab Screen, S Reactive(A ) Negative 03/14/2023 11:27 PM CDT [facility] Comment: Supplemental testing for HCV RNA is ordered to rule out active HCV infection. Qiipur-zf-iceobt ratio is >=1.00 and <8.00. Blood (Blood, Venous) 03/14/2023 6:31 PM CDT 03/14/2023 8:21 PM CDT Sonido Mueller.-C. LAB MICROBIOLOGY - BLOOD OR DERABLES Final Result Performing Organization Address [facility]/ZIP Co de Phone Number [facility] [address] [place] [address] [facility] [address] [place] [address] * Hepatitis B Surface Antigen (03/14/2023 6:31 PM CDT) HBs Antigen, S Negative Negative 03/14/2023 11:09 PM CDT [facility] Blood (Blood, Venous) 03/14/2023 6:31 PM CDT 03/14/2023 8:21 PM CDT Sonido Wooten PChristianeA.-C. LAB MICROBIOLOGY - BLOOD OR DERABLES Final Result [facility] [address] [place] [address] [facility] [address] [place] [address] from Last 3 Months or Most Recently Relevant to Health Maintenance Insurance [facility] Advance Directives For more information, please contact: [phone] * Full Code (Latest Code Status on File) Date Activated Date Inactivated Comments 03/13/2023 4:37 AM 03/19/2023 5:51 PM Question Answer Comments Full Code: Not Discussed Due to: Patient not available
--- OUTSIDE RECORDS SUMMARY | 2024-08-16 15:53 | XMS_ITS | Encounter Summary ---
Author Organization [facility] Address [address] [place] [address] Care Team Providers Care Shipwright Name Role Phone Unavailable Primary Care Provider Unavailabl e Encounter Details Date Type Department Care Team (Late st Contact Info) Description 07/23/2024 Orders Only Division of Nephrology and Hypertension, [facility], in [place], [place] [address] [place] [address] Danae Zelaya, FLAVIO, C.N.P., M.S.N. [address] [place] [address] Social History Tobacco Use Types Packs/Day Years [...]
--- OUTSIDE RECORDS SUMMARY | 2024-08-16 15:53 | XMS_ITS | CONTINUITY OF CARE DOCUMENT ---
Author Name User, QIE Address [address] [place] [address] Organization [facility] Address [address] [place] [address] [address] [place] [address] Phone [phone] Care Team Providers Care Appraiser Name Role Phone User, QIE Unavailable Unavailable PROBLEMS Condition Status Date Provider Notes Organizati on CKD STAGE ESRD ON DIALYSIS GFR <15 active Trisha Barone , [address] [place] [address] [address] [place] [address] [facility] VITAL SIGNS Date Observation Value Provider Organization blood pressure, diastolic 81 mm[Hg] Lenora Colon RN RN, [address] [place] [address] [address] [facility] blood pressure, systolic 121 mm[Hg] Lenora Colon RN RN, [address] [place] [address] [address] [facility] blood pressure, site #1 Upper arm Lenora Colon RN RN, [address] [place] [address] [address] [facility] pulse rate 70 /min Lenora Colon RN RN, [address] [place] [address] [address] [facility] Body Mass Index (Ratio) 18.46 kg/m2 Lenora Colon RN RN, [address] [place] [address] [address] [facility] weight E&M 121 [lb_av] Lenora Colon RN RN, [address] [place] [address] [address] [facility] respiratory rate E&M 18 /min Lenora Colon RN RN, [address] [place] [address] [address] [facility] blood pressure, diastolic, right arm 81 mm[Hg] Lenora Colon RN RN, [address] [place] [address] [address] [place] [address] [facility] blood pressure, systolic, right arm 121 mm[Hg] Lenora Colon RN RN, [address] [place] [address] [address] [place] [address] [facility] temperature E&M 97.5 [degF] Lenora Colon RN RN, [address] [place] [address] [address] [place] [address] [facility] height E&M 68 [in_i] Lenora Colon RN RN, [address] [place] [address] [address] [place] [address] [facility] blood pressure, diastolic 81 mm[Hg] Trisha Barone [address] [place] [address] [address] [place] [address] [facility] blood pressure, systolic 170 mm[Hg] Trisha Abisai , [address] [place] [address] [address] [place] [address] [facility] Body Mass Index (Ratio) 18.31 kg/m2 Trisha Barone [address] [place] [address] [address] [place] [address] [facility] weight E&M 120 [lb_av] Trisha Barone [address] [place] [address] [address] [place] [address] [facility] height E&M 68 [in_i] Trisha Abisai [address] [place] [address] [address] [place] [address] [facility] pulse rate 71 /min Trisha Barone [address] [place] [address] [address] [place] [address] [facility] blood pressure, site #2 Upper arm Trisha Abisai [address] [place] [address] [address] [place] [address] [facility] blood pressure, diastolic, left arm 81 mm[Hg] Trisha Barone [address] [place] [address] [address] [place] [address] [facility] blood pressure, systolic, left arm 170 mm[Hg] Trisha Barone [address] [place] [address] [address] [place] [address] [facility] blood pressure, site #1 Upper arm Trisha Abisai [address] [place] [address] [address] [facility] [address] [facility] blood pressure, diastolic, right arm 80 mm[Hg] Trisha Barone [address] [place] [address] 2 [facility] [address] [facility] blood pressure, systolic, right arm 114 mm[Hg] Trisha Barone [address] [address] [facility] ALLERGIES Allergy Name Onset Date Reaction Criticality Status Provider Or ganization RANITIDINE High Criticality active R masoud Barone [address] [place] [address] 2 [facility] [address] [facility] HISTORY OF MEDICATION USE Medication Instructions Status Dates Provider Indications Com ments Organization TAB-A-KENJI TABS TAKE 1 TABLET BY MOUTH ONCE DAILY. active Trisha Barone [address] [address] [facility] sodium bicarbonate 650 mg tablet TAKE 2 TABLETS BY MOUTH IN THE MORNING, 2 TABLETS IN THE EVENING AND 2 TABLETS AT BEDTIME. completed - 06/[address] [address] [facility] atorvastatin 40 mg tablet TAKE 1 TABLET (40 MG) BY MOUTH AT BEDTIME. 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 Lenora Colon RN, RN, [address] [place] [address] [facility] social history E&M Patient willy pedersen smokes sometimes.; Patient has been counseled to quit.; Marijuana Use: Y; Lenora Colon RN, RN, [address] [place] [address] [facility] personal history of marijuana use yes Lenora Colon RN, RN, [address] [place] [address] [facility] smoking status Current some day smoker Lenora Colon RN, RN, [address] [place] [address] 2 [facility] [address] [facility] social history reviewed E&M reviewed - no changes required Lenora Colon RN RN, [address] [place] [address] [address] [facility] [address] [facility] smoking/tobacco cessation, patient education and counseling yes Lenora Colon RN RN, [address] [place] [address] [address] [facility] [address] [facility] handedness right Lit Miller MD, MD, [address] [facility] [address] [facility] social history E&M Patient willy ntly smokes sometimes.; Marijuana Use: Y; Trisha Barone [address] [facility] [address] [facility] personal history of marijuana use yes Trisha Barone [address] [facility] [address] [facility] social history reviewed E&M reviewed - no changes required Trisha Barone [address] [facility] [address] [facility] smoking status Current some day smoker Trisha Barone [address] [facility] [address] [facility] personal history of marijuana use yes Trisha Barone [address] [facility] [address] [facility] social history E&M Patient willy pedersen smokes every day.; Marijuana Use: Y; Trisha Barone [address] [facility] [address] [facility] social history reviewed E&M reviewed - no changes required Trisha Barone [address] [facility] [address] [facility] smoking status Current every da y smoker Trisha Barone [address] [facility] [address] [facility] FAMILY HISTORY Family Member Condition Mother Unknown INSURANCE PROVIDERS Payer name Policy type / Coverage type Tracey [employer] party ID [employer] [place] - [place] [id number] TREATMENT PLAN Date Name Provider Vein Mapping Kaitlyn Aguilar DMS, RVT RDMS, RVT, [address] [place] [address] [address] [facility] [address] HISTORY OF PROCEDURES Procedure Date Procedure Name Provider Procedure Notes Status Organization INJECTION MIDAZOLAM HCL PER 1 MG Lit Miller MD, MD, [address] [place] [address] completed [facility] INJECTION FENTANYL CITRATE 100MCG Lit Miller MD, MD, [address] [place] [address] completed [facility] INJ HEPARIN SODIUM PER 1000 UNITS Lit Miller MD, MD, [address] [place] [address] completed [facility] INFUS NORMAL SALINE SOLUTION 250 CC Lit Miller MD, MD, [address] [place] [address] completed [facility] Benadryl 50mg Lit Miller MD, MD, [address] [place] [address] completed [facility] Ancef 1g Lit Miller MD, MD, [address] [place] [address] completed [facility] Creation of Brachicephalic, Radiocephalic, Brachiobasilic Lit Miller MD, MD, [address] [place] [address] Left 1st Stage completed [facility] Antibiotic initiated on time-Yes Lit Miller MD, MD, [address] [place] [address] completed [facility] Quailty Measures all negative Lit Miller MD, MD, [address] [place] [address] completed [facility] SNOMED-CT:PATIENT ENCOUNTER Lit Miller MD, MD, [address] [place] [address] completed [facility] SNOMED-CT:PATIENT ENCOUNTER Lit Miller MD, MD, [address] [place] [address] completed [facility]
--- OUTSIDE RECORDS SUMMARY | 2024-08-16 15:54 | XMS_ITS | Encounter Summary ---
Author Organization [facility] Address [address] [place] [address] Care Team Providers Care Bakery Products Checker Name Role Phone Unavailable Primary Care Provider Unavailabl e Encounter Details Date Type Department Care Team (Late st Contact Info) Description 07/21/2024 Orders Only Division of Nephrology and Hypertension, [facility], in [place], [place] [address] [place] [address] Danae Zelaya, FLAVIO, C.N.P., M.S.N. [address] [place] [address] Epididymitis Acute (Primary Dx) Social History Tobacco Use Types Packs/Day Years [...] as of this encounter Visit Diagnoses Diagnosis Epididymitis Acute- Primary documented in this encounter
--- OUTSIDE RECORDS SUMMARY | 2024-08-16 15:54 | XMS_ITS | Clinical Summary ---
Author Organization [employer] Address [facility] [place] [address] Care Team Providers Care Front End Developer Name Role Phone Pcp, No Unavailable Unavailable Shelia Dietrich DO Primary Care Provider [phone] Allergies Active Allergy Reactions Criticality Noted Date [...] at bedtime. 30 Tablet 05/25/2024 4:01 PM CASH APPLICATIONS ASSOCIATE 05/25/2024 Active bumetanide (BUMEX) 2 mg tabletIndication s:HFrEF (heart failure with reduced ejection fraction) (HC) Take 1 Tablet (2 mg) by mouth once daily in the morning. 30 Tablet 05/25/2024 4:01 PM CASH APPLICATIONS ASSOCIATE 05/25/2024 Active carvediloL (COREG) 6.25 mg tabletIndication s:HFrEF (heart failure with reduced ejection fraction) (HC),Hypertensio n Take 1 Tablet (6.25 mg) by mouth two times daily with meals. 60 Tablet 05/25/2024 4:01 PM CASH APPLICATIONS ASSOCIATE 05/25/2024 Active multivitamin with folic acid 0.4 [...] Department Care Team Description 06/28/2024 Patient Outreach [facility] [address] [place] [address] Adrianna Collins, RN Student Primary RN Care Management (Lace score 60); Hospital F/U 06/25/2024 7:36 PM CASH APPLICATIONS ASSOCIATE - 06/26/2024 11:45 AM CASH APPLICATIONS ASSOCIATE Hospital Encounter [address] [place] [address] s, U Hospitalist c Arun Martinez MD Chaudhry, Viki Abreu MD Discharge Disposition: Home Self Care 05/28/2024 Telephone [facility] [address] [place] [address] Shelia Dietrich DO Results 05/27/2024 11:15 AM CASH APPLICATIONS ASSOCIATE Office Visit [facility] [address] [place] [address] Shelia Dietrich DO Hospital F/U (Has had several hospitalizations for heart failure and ESRD; most recently discharged on 05/26/24) 05/27/2024 Telephone [facility] [address] [place] [address] Ami Smith, RN Appointment (Arrange transportation with [facility]) 05/27/2024 Travel 05/27/2024 Patient Outreach [facility] [address] [place] [address] Deirda Bradley, JOSE LUIS Hospital F/U; Primary RN Care Management (LACE 80) 05/17/2024 3:04 PM CASH APPLICATIONS ASSOCIATE - 05/26/2024 4:30 PM CASH APPLICATIONS ASSOCIATE Hospital Encounter [facility] [address] [place] [address] Jaden Aguilar MBBS Wirt, Aurelia Saravia, DO Aparicio, MD Star Dwyer, Shen Nagy MD [facility], [facility] Hospitalists Of Foot pain, bilateral (Primary Dx); [...] on file Legal Sex Male 4:18 PM CASH APPLICATIONS ASSOCIATE Gender Identity Not on file Sexual Orientation Not on file Obstetrics History Last Filed Vital Signs Vital Sign Reading Time Taken Comments Blood Pressure 159/88 06/26/2024 7:29 AM CASH APPLICATIONS ASSOCIATE Pulse 87 06/26/2024 7:36 AM CASH APPLICATIONS ASSOCIATE Temperature 36.5 C (97.7 F) 06/26/2024 7:29 AM CASH APPLICATIONS ASSOCIATE Respiratory Rate 18 06/26/2024 7:29 AM CASH APPLICATIONS ASSOCIATE Oxygen Saturation 91% 06/26/2024 7:29 AM CASH APPLICATIONS ASSOCIATE Inhaled Oxygen Concentration - - Weight 54.4 kg (120 lb) 06/25/2024 10:15 PM CASH APPLICATIONS ASSOCIATE Height 174 cm (5' 8.5) 05/17/2024 3:00 PM CASH APPLICATIONS ASSOCIATE Body Mass Index 17.98 05/17/2024 3:00 PM CASH APPLICATIONS ASSOCIATE Plan of Treatment Health Maintenance Due Date [...] Diagnosis Comments SCAN CORRESP-IMAGING 06/28/2024 3:02 PM CASH APPLICATIONS ASSOCIATE SCAN CORRESP-EKG RESULTS 06/28/2024 2:48 PM CASH APPLICATIONS ASSOCIATE SCAN-CARDIAC STRIP 06/26/2024 7: 56 AM CASH APPLICATIONS ASSOCIATE HBSAG (HBS) STAT 06/26/2024 7:16 AM CASH APPLICATIONS ASSOCIATE PLATELET COUNT Early AM 06/26/2024 7:16 AM CASH APPLICATIONS ASSOCIATE HEMOGLOBIN Early AM 06/26/2024 7:16 AM CASH APPLICATIONS ASSOCIATE WHITE BLOOD COUNT Early AM 06/26/2024 7:1 6 AM CASH APPLICATIONS ASSOCIATE MAGNESIUM Early AM 06/26/2024 7:16 AM CASH APPLICATIONS ASSOCIATE POTASSIUM Early AM 06/26/2024 7:16 AM CASH APPLICATIONS ASSOCIATE SODIUM Early AM 06/26/2024 7:16 AM CASH APPLICATIONS ASSOCIATE SCAN-CARDIAC STRIP 06/25/2024 8: 41 PM CASH APPLICATIONS ASSOCIATE HEMOGLOBIN Routine 05/27/2024 12:29 PM CASH APPLICATIONS ASSOCIATE Anemia of chronic renal failure, stage 5 (HC) BASIC METABOLIC PANEL Routine 05/27/2024 12:29 PM CASH APPLICATIONS ASSOCIATE Anemia of chronic renal failure, stage 5 (HC) VITAMIN D 25 (DEFICIENCY) Routine 05/27/2024 12:29 PM CASH APPLICATIONS ASSOCIATE Vitamin D deficiency POTASSIUM Early AM 05/25/2024 9:11 AM CASH APPLICATIONS ASSOCIATE SODIUM Early AM 05/25/2024 9:11 AM CASH APPLICATIONS ASSOCIATE WHITE BLOOD COUNT Early AM 05/25/2024 9:1 1 AM CASH APPLICATIONS ASSOCIATE PLATELET COUNT Early AM 05/25/2024 9:11 AM CASH APPLICATIONS ASSOCIATE HEMOGLOBIN Early AM 05/25/2024 9:11 AM CASH APPLICATIONS ASSOCIATE CT CHEST WO Routine 05/24/2024 1:53 PM CASH APPLICATIONS ASSOCIATE HBV REAL TIME PCR QUANT Today 05/20/2024 1:58 PM CASH APPLICATIONS ASSOCIATE RENAL FUNCTION PANEL Early AM 05/20/2024 1:58 PM CASH APPLICATIONS ASSOCIATE MAGNESIUM Early AM 05/20/2024 1:58 PM CASH APPLICATIONS ASSOCIATE CBC W PLT NO DIFF Early AM 05/20/2024 1:5 7 PM CASH APPLICATIONS ASSOCIATE PHOSPHORUS Early AM 05/19/2024 3:27 PM CASH APPLICATIONS ASSOCIATE MAGNESIUM Early AM 05/19/2024 3:27 PM CASH APPLICATIONS ASSOCIATE CBC W PLT NO DIFF Early AM 05/19/2024 3:2 7 PM CASH APPLICATIONS ASSOCIATE BASIC METABOLIC PANEL Early AM 05/19/2024 3:27 PM CASH APPLICATIONS ASSOCIATE GLUCOSE METER Timed 05/18/2024 11:30 PM CASH APPLICATIONS ASSOCIATE GLUCOSE METER Timed 05/18/2024 5:52 PM CASH APPLICATIONS ASSOCIATE HCV RT-PCR, QUANT (NON-GRAPH) Today 05/18/2024 10:30 AM CASH APPLICATIONS ASSOCIATE SCAN CORRESP-EKG RESULTS 05/18/2024 10:24 AM CASH APPLICATIONS ASSOCIATE SCAN CORRESP-EKG RESULTS 05/18/2024 10:24 AM CASH APPLICATIONS ASSOCIATE SCAN CORRESP-IMAGING 05/18/2024 10:24 AM CASH APPLICATIONS ASSOCIATE BLOOD GAS,VENOUS Early AM 05/18/2024 4:58 AM CASH APPLICATIONS ASSOCIATE CBC W PLT NO DIFF Early AM 05/18/2024 4:5 8 AM CASH APPLICATIONS ASSOCIATE PHOSPHORUS Early AM 05/18/2024 4:57 AM CASH APPLICATIONS ASSOCIATE MAGNESIUM Early AM 05/18/2024 4:57 AM CASH APPLICATIONS ASSOCIATE BASIC METABOLIC PANEL Early AM 05/18/2024 4:57 AM CASH APPLICATIONS ASSOCIATE ANTI HCV Early AM 04/28/2024 5:01 AM CASH APPLICATIONS ASSOCIATE from Last 3 Months or Most Recently Relevant to Health Maintenance Results * SCAN CORRESP-IMAGING (06/28/2024 3:02 PM CASH APPLICATIONS ASSOCIATE) Only the most recent of2 resultswithin the time period is included. Anatomical Region Laterality Modality Other Narrative 06/28/2024 3:02 PM CASH APPLICATIONS ASSOCIATE Ordered by an unspecified provider. us Other Clinical Staff OTHER Final Resul t * SCAN CORRESP-EKG RESULTS (06/28/2024 2:48 PM CASH APPLICATIONS ASSOCIATE) Only the most recent of3 resultswithin the time period is included. Narrative 06/28/2024 2:48 PM CASH APPLICATIONS ASSOCIATE Ordered by an unspecified provider. us Other Clinical Staff OTHER Final Resul t * SCAN-CARDIAC STRIP (06/26/2024 7:56 AM CASH APPLICATIONS ASSOCIATE) us Scanner OTHER Final Result * HBSAG (HBS) (06/26/2024 7:16 AM CASH APPLICATIONS ASSOCIATE) HBSAG Nonreactive Nonreactive 06/26/2024 10:33 AM CASH APPLICATIONS ASSOCIATE [facility] Blood BLOOD SPECIMEN / Unknown Venipuncture / Unknown 06/26/2024 7:16 AM CASH APPLICATIONS ASSOCIATE 06/26/2024 7:34 AM CASH APPLICATIONS ASSOCIATE us Luan Tatum MD SEND OUTS Fi nal Result [facility] [address] [place] [address], * PLATELET COUNT (06/26/2024 7:16 AM CASH APPLICATIONS ASSOCIATE) Only the most recent of2 resultswithin the time period is included. PLATELET COUNT 265 140 - 440 thou/cu mm 06/26/2024 7:41 AM CASH APPLICATIONS ASSOCIATE [facility] MPV 10.3 6.5 - 11.0 fL 06/26/2024 7:41 AM CASH APPLICATIONS ASSOCIATE [facility] Blood BLOOD SPECIMEN / Unknown Venipuncture / Unknown 06/26/2024 7:16 AM CASH APPLICATIONS ASSOCIATE 06/26/2024 7:34 AM CASH APPLICATIONS ASSOCIATE Arun Martinez MD HEMATOLOGY Final Res ult Performing Organization Address [facility] Co de Phone Number [facility] SENDOUT INTERNAL ZIP [phone] [place] [phone] * WHITE BLOOD COUNT (06/26/2024 7:16 AM CASH APPLICATIONS ASSOCIATE) Only the most recent of2 resultswithin the time period is included. WHITE BLOOD COUNT 10.4 4.5 - 11.0 thou/cu mm 06/26/2024 7:41 AM CASH APPLICATIONS ASSOCIATE [facility] NRBC 0.0 % 06/26/2024 7:41 AM CASH APPLICATIONS ASSOCIATE [facility] ABS NRBC 0.0 thou /cu mm 06/26/2024 7:41 AM CASH APPLICATIONS ASSOCIATE [facility] Blood BLOOD SPECIMEN / Unknown Venipuncture / Unknown 06/26/2024 7:16 AM CASH APPLICATIONS ASSOCIATE 06/26/2024 7:34 AM CASH APPLICATIONS ASSOCIATE Arun Martinez MD HEMATOLOGY Final Res ult Performing Organization Address City/[facility]/ZIP Co de Phone Number [facility] SENDOUT INTERNAL ZIP [phone] [place] [phone] * (ABNORMAL) HEMOGLOBIN (06/26/2024 7:16 AM CASH APPLICATIONS ASSOCIATE) Only the most recent of3 resultswithin the time period is included. HEMOGLOBIN 10.4(L) 13.5 - 17.5 g/dL 06/26/2024 7:41 AM CASH APPLICATIONS ASSOCIATE [facility] MCV 95 80 - 100 fL 06/26/2024 7:41 AM CASH APPLICATIONS ASSOCIATE [facility] Blood BLOOD SPECIMEN / Unknown Venipuncture / Unknown 06/26/2024 7:16 AM CASH APPLICATIONS ASSOCIATE 06/26/2024 7:34 AM CASH APPLICATIONS ASSOCIATE us Arun Martinez MD HEMATOLOGY Final Res ult Performing Organization Address City/[facility] Co de Phone Number [facility] SENDOUT INTERNAL ZIP [phone] [place] [phone] * (ABNORMAL) SODIUM (06/26/2024 7:16 AM CASH APPLICATIONS ASSOCIATE) Only the most recent of2 resultswithin the time period is included. SODIUM 135(L) 136 - 145 mmol/L 06/26/2024 8:00 AM CASH APPLICATIONS ASSOCIATE [facility] Blood BLOOD SPECIMEN / Unknown Venipuncture / Unknown 06/26/2024 7:16 AM CASH APPLICATIONS ASSOCIATE 06/26/2024 7:34 AM CASH APPLICATIONS ASSOCIATE us Arun Martinez MD CHEMISTRY Final Res ult Performing Organization Address [facility] Phone Number [facility] SENDOUT INTERNAL ZIP [phone] [place] [phone] * POTASSIUM (06/26/2024 7:16 AM CASH APPLICATIONS ASSOCIATE) Only the most recent of2 resultswithin the time period is included. POTASSIUM 4.0 3.5 - 5.1 mmol/L 06/26/2024 8:00 AM CASH APPLICATIONS ASSOCIATE [facility] Blood BLOOD SPECIMEN / Unknown Venipuncture / Unknown 06/26/2024 7:16 AM CASH APPLICATIONS ASSOCIATE 06/26/2024 7:34 AM CASH APPLICATIONS ASSOCIATE us Arun Martinez MD CHEMISTRY Final Res ult Performing Organization Address [facility] Co de Phone Number [facility] SENDOUT INTERNAL ZIP [phone] [place] [phone] * MAGNESIUM (06/26/2024 7:16 AM CASH APPLICATIONS ASSOCIATE) Only the most recent of4 resultswithin the time period is included. MAGNESIUM 2.2 1.6 - 2.4 mg/dL 06/26/2024 8:00 AM CASH APPLICATIONS ASSOCIATE [facility] Blood BLOOD SPECIMEN / Unknown Venipuncture / Unknown 06/26/2024 7:16 AM CASH APPLICATIONS ASSOCIATE 06/26/2024 7:34 AM CASH APPLICATIONS ASSOCIATE us Arun Martinez MD CHEMISTRY Final Res ult [facility] SENDOUT INTERNAL ZIP [phone] [place] [address] * SCAN-CARDIAC STRIP (06/25/2024 8:41 PM CASH APPLICATIONS ASSOCIATE) us Scanner OTHER Final Result * (ABNORMAL) VITAMIN D 25 (DEFICIENCY) (05/27/2024 12:29 PM CASH APPLICATIONS ASSOCIATE) VITAMIN D,25-OH,TOTAL,IA 19(L) 30 - 100 ng/mL [facility] Comment: Vitamin D Status 25-OH Vitamin D: Deficiency: <20 ng/mL Insufficiency: 20 - 29 ng/mL Optimal: > or = 30 ng/mL For 25-OH Vitamin D testing on patients on D2-supplementation and patients for whom quantitation of D2 and D3 fractions is required, the [facility]() 25-OH VIT D, (D2,D3), LC/MS/MS is recommended: order code [id number] (patients >2yrs). See Note 1 Note 1 For additional information, please refer to http://education.[employer]iddle.[employer]/faq/AXB165 (This link is being provided for informational/ educational purposes only.) Blood BLOOD SPECIMEN / Unknown 05/27/2024 12:29 PM CASH APPLICATIONS ASSOCIATE 05/27/2024 12:29 PM CASH APPLICATIONS ASSOCIATE us Shelia Dietrich DO SEND OUTS Final Resu lt [facility] [address] [place] [address], [facility] [address] [place] [address] * (ABNORMAL) BASIC METABOLIC PANEL (05/27/2024 12:29 PM CASH APPLICATIONS ASSOCIATE) Only the most recent of3 resultswithin the time period is included. GLUCOSE 97 65 - 99 mg/dL [facility] Comment: Fasting reference interval UREA NITROGEN (BUN) 31(H) 7 - 25 mg/dL [facility] CREATININE 4.66(H) 0.70 - 1.35 mg/dL [facility] EGFR 13(L) > OR = 60 mL/min/1.7 3m2 [facility] BUN/CREATININE RATIO 7 6 - 22 (calc) [facility] SODIUM 136 135 - 146 mmol/L [facility] POTASSIUM 5.1 3.5 - 5.3 mmol/L [facility] CHLORIDE 97(L) 98 - 110 mmol/L [facility] CARBON DIOXIDE 23 20 - 32 mmol/L [facility] ELECTROLYTE BALANCE 16 7 - 17 mmol/L (calc) [facility] CALCIUM 9.6 8.6 - 10.3 mg/dL [facility] Blood BLOOD SPECIMEN / Unknown 05/27/2024 12:29 PM CASH APPLICATIONS ASSOCIATE 05/27/2024 12:29 PM CASH APPLICATIONS ASSOCIATE us Shelia Dietrich DO CHEMISTRY Final Resu lt [facility] [address] [place] [address], [facility] [address] [place] [address] * CT Chest without contrast (05/24/2024 1:53 PM CASH APPLICATIONS ASSOCIATE) Anatomical Region Laterality Modality CHEST, THORAX, HEART Computed To mography 05/24/2024 2:26 PM CASH APPLICATIONS ASSOCIATE Impressions 05/24/2024 2:26 PM CASH APPLICATIONS ASSOCIATE 1. No significant change in the large [...] PM (Electronically Signed) Narrative 05/24/2024 2:26 PM CASH APPLICATIONS ASSOCIATE For Patients: As a result of the [...] a two-[facility] F[facility]: Stable right-sided dual lumen venous [...] or atelectasis at the left lung base series 4. Subpleural fibrosis at the lung [...] REAL TIME PCR QUANT (05/20/2024 1:58 PM CASH APPLICATIONS ASSOCIATE) [facility] HBV IU mL HBV DNA not detected IU/mL 05/23/2024 6:06 PM CASH APPLICATIONS ASSOCIATE [facility] ([facility]) log10 HBV IU mL 05/23/2024 6:06 PM CASH APPLICATIONS ASSOCIATE [facility] (CET) Comment: Unable to calculate result since non-numeric result obtained for component test. HBV Test Info Comment 05/23/2024 6:06 PM CASH APPLICATIONS ASSOCIATE [facility] ([facility]) Comment:The reportable range for this assay is 10 IU/mL to 1 billion IU/mL. Blood BLOOD SPECIMEN / Unknown Non-Lab Venipuncture / Unknown 05/20/2024 1:58 PM CASH APPLICATIONS ASSOCIATE 05/20/2024 2:09 PM CASH APPLICATIONS ASSOCIATE Narrative [facility] ([facility]) - 05/23/2024 6:06 PM CASH APPLICATIONS ASSOCIATE Performed at: - [facility] [address] [place] [id number] National Facilities Manager: Basilio Oden MD, Phone: [phone] us Jasvir Parrish MD SEND OUTS Final Re sult [facility] (C[facility]) [facility] [place] [address], [place] * (ABNORMAL) RENAL FUNCTION PANEL (05/20/2024 1:58 PM CASH APPLICATIONS ASSOCIATE) [facility] SODIUM 132(L) 136 - 145 mmol/L 05/20/2024 2:39 PM [facility] POTASSIUM 4.0 3.5 - 5.1 mmol/L 05/20/2024 2:39 PM [facility] CHLORIDE 96(L) 98 - 107 mmol/L 05/20/2024 2:39 PM [facility] CO2,TOTAL 20(L) 22 - 29 mmol/L 05/20/2024 2:39 PM [facility] ANION GAP 16 5 - 18 05/20/2024 2:39 PM [facility] GLUCOSE 119(H) 70 - 99 mg/dL 05/20/2024 2:39 PM [facility] CALCIUM 8.8 8.8 - 10.4 mg/dL 05/20/2024 2:39 PM [facility] Comment: Reference ranges for this test were updated on 03/30/2024 to reflect our healthy population more accurately. Reference range changes are not retroactively applied to results, but previous results using the same methodology can be interpreted in the context of the new reference range. BUN 40(H) 8 - 23 mg/dL 05/20/2024 2:39 PM [facility] CREATININE 4.41(H) 0.70 - 1.20 mg/dL 05/20/2024 2:39 PM [facility] BUN/CREAT RATIO 9(L) 10 - 20 2:39 PM [facility] eGFR 14(L) >90 mL/min/1. 73m2 05/20/2024 2:39 PM [facility] Comment:As of 2021, eG FR is calculated by the CKD-EPI creatinine equation without race adjustment. eGFR can be influenced by muscle mass, exercise, and diet. The reported eGFR is an estimation only and is only applicable if the renal function is stable. PHOSPHORUS 4.0 2.5 - 4.5 mg/dL 05/20/2024 2:39 PM [facility] ALBUMIN 3.7(L) 4.0 - 4.9 g/dL 05/20/2024 2:39 PM CASH APPLICATIONS ASSOCIATE [facility] Blood BLOOD SPECIMEN / Unknown Non-Lab Venipuncture / Unknown 05/20/2024 1:58 PM CASH APPLICATIONS ASSOCIATE 05/20/2024 2:08 PM CASH APPLICATIONS ASSOCIATE us Sheyla Apraicio MD CHEMISTRY Final Resu lt [facility] [address] [place] [address], [place] * (ABNORMAL) CBC W PLT NO DIFF (05/20/2024 1:57 PM CASH APPLICATIONS ASSOCIATE) Only the most recent of3 resultswithin the time period is included. WHITE BLOOD COUNT 11.4(H) 4.5 - 11.0 thou/cu mm 05/20/2024 2:14 PM CASH APPLICATIONS ASSOCIATE [facility] RED BLOOD COUNT 2.71(L) 4.30 - 5.90 mil/cu mm 05/20/2024 2:14 PM CASH APPLICATIONS ASSOCIATE [facility] HEMOGLOBIN 8.7(L) 13.5 - 17.5 g/dL 05/20/2024 2:14 PM [facility] HEMATOCRIT 26.2(L) 37.0 - 53.0 % 05/20/2024 2:14 PM CASH APPLICATIONS ASSOCIATE [facility] MCV 97 80 - 100 fL 05/20/2024 2:14 PM CASH APPLICATIONS ASSOCIATE [facility] MCH 32.1 26.0 - 34.0 pg 05/20/2024 2:14 PM CASH APPLICATIONS ASSOCIATE [facility] MCHC 33.2 32.0 - 36.0 g/dL 05/20/2024 2:14 PM CASH APPLICATIONS ASSOCIATE [facility] RDW 12.5 11.5 - 15.5 % 05/20/2024 2:14 PM [facility] PLATELET COUNT 279 140 - 440 thou/cu mm 05/20/2024 2:14 PM [facility] MPV 11.8(H) 6.5 - 11.0 fL 05/20/2024 2:14 PM CASH APPLICATIONS ASSOCIATE [facility] NRBC 0.0 % 05/20/2024 2:14 PM CASH APPLICATIONS ASSOCIATE [facility] ABS NRBC 0.0 thou /cu mm 05/20/2024 2:14 PM CASH APPLICATIONS ASSOCIATE [facility] Blood BLOOD SPECIMEN / Unknown Non-Lab Venipuncture / Unknown 05/20/2024 1:57 PM CASH APPLICATIONS ASSOCIATE 05/20/2024 2:08 PM CASH APPLICATIONS ASSOCIATE Dipak Hendrickson MD HEMATOLOGY Final Resu lt Performing Organization Address City/[facility]/ZIP Co de Phone Number [facility] [address] [place] [address], * (ABNORMAL) PHOSPHORUS (05/19/2024 3:27 PM CASH APPLICATIONS ASSOCIATE) Only the most recent of2 resultswithin the time period is included. PHOSPHORUS 2.1(L) 2.5 - 4.5 mg/dL 05/19/2024 4:13 PM CASH APPLICATIONS ASSOCIATE [facility] Blood BLOOD SPECIMEN / Unknown Butterfly / Unknown 05/19/2024 3:27 PM CASH APPLICATIONS ASSOCIATE 05/19/2024 3:32 PM CASH APPLICATIONS ASSOCIATE Dipak Hendrickson MD CHEMISTRY Final Resu lt Performing Organization Address City/[facility]/ZIP Co de Phone Number [facility] [address] [place] [address], * (ABNORMAL) GLUCOSE METER (05/18/2024 11:30 PM CASH APPLICATIONS ASSOCIATE) Only the most recent of2 resultswithin the time period is included. GLUCOSE METER 105(H) 65 - 100 mg/dL 05/18/2024 11:32 PM CASH APPLICATIONS ASSOCIATE [facility] Blood BLOOD SPECIMEN / Unknown 05/18/2024 11:30 PM CASH APPLICATIONS ASSOCIATE 05/18/2024 11:32 PM CASH APPLICATIONS ASSOCIATE us Doctor Unknown CHEMISTRY Final Result [facility] [address] [place] [address], [place] * HCV RT-PCR, QUANT (NON-GRAPH) [facility] (05/18/2024 10:30 AM CASH APPLICATIONS ASSOCIATE) Pathologist [facility] Hep C Qn HCV Not Detected IU/mL 05/22/2024 2:06 PM CASH APPLICATIONS ASSOCIATE [facility]) HCV Test Info Comment 05/22/2024 2:06 PM CASH APPLICATIONS ASSOCIATE [facility] ([facility]ET) Comment:The quantitative ran ge of this assay is 15 IU/mL to 100 million IU/mL. Blood BLOOD SPECIMEN / Unknown Venipuncture / Unknown 05/18/2024 10:30 AM CASH APPLICATIONS ASSOCIATE 05/18/2024 10:35 AM CASH APPLICATIONS ASSOCIATE Narrative [facility] - 05/22/2024 2:06 PM CASH APPLICATIONS ASSOCIATE Performed at: - [facility] [address] [id number] National Facilities Manager: Basilio Oden MD, Phone: [phone] us Osmani Ceron MD LABORATORY Final Resul t [facility] ([facility]) [facility] [place] [address], [place] * (ABNORMAL) BLOOD GAS,VENOUS (05/18/2024 4:58 AM CASH APPLICATIONS ASSOCIATE) Pathologist [facility] PH, VENOUS 7.41 7.32 - 7.43 05/18/2024 5:34 AM CASH APPLICATIONS ASSOCIATE [facility] PCO2, VENOUS 39(L) 41 - 51 mmHg 05/18/2024 5:34 AM CASH APPLICATIONS ASSOCIATE [facility] PO2, VENOUS 43(H) 35 - 40 mmHg 05/18/2024 5:34 AM CASH APPLICATIONS ASSOCIATE [facility] HCO3,VENOUS 25 22 - 29 mmol/L 05/18/2024 5:34 AM CASH APPLICATIONS ASSOCIATE [facility] BASE EXCESS, VENOUS, POCT 0.1 -2.0 - 3.0 05/18/2024 5:34 AM CASH APPLICATIONS ASSOCIATE [facility] O2 SATURATION, VENOUS 76(H) 70 - 75 % 05/18/2024 5:34 AM [facility] PATIENT TEMPERATURE 37.0 Degrees C 05/18/2024 5:34 AM [facility] Blood VENOUS BLOOD SPECIMEN / Unknown Venipuncture / Unknown 05/18/2024 4:58 AM [facility] 05/18/2024 5:30 AM [facility] us Dipak Hendrickson MD CHEMISTRY Final Resu lt Performing Organization Address City/[facility]/ZIP Co de Phone Number [facility] [phone] [address] [place] [address], * (ABNORMAL) ANTI HCV (04/28/2024 5:01 AM CASH APPLICATIONS ASSOCIATE) HEPATITIS C ANTIBODY Reactive, Preliminary Positive(A) Non-React odette 04/28/2024 9:46 AM CASH APPLICATIONS ASSOCIATE [facility] Comment:Presumptive evidence of antibodies to HCV. Reflexed to HCV RNA Quant (See separate report). Blood BLOOD SPECIMEN / Unknown Venipuncture / Unknown 04/28/2024 5:01 AM CASH APPLICATIONS ASSOCIATE 04/28/2024 5:17 AM CASH APPLICATIONS ASSOCIATE us Zaheer Valerio MD SEND OUTS Final Result Performing Organization Address City/[facility]/ZIP Co de Phone Number [facility] [address] [place] [address], from Last 3 Months or Most Recently Relevant to Health Maintenance Insurance [facility] Advance Directives * Full Code (Latest Code [...] Code Status Discussion: Reviewed Preferences Care Teams Front End Developer Relationship Specialty Start Date End Date [place] [address] PCP - General Family Practice 06/18/23 Pcp, No . 05/18/23
[2024-08-16 16:38] LABS: HCO3 VBG 23 mmol/L (21-28); PCO2 VBG 32 mmHG (40-50); PO2 VBG 46.9 mmHG (25-47); pH VBG 7.456 (7.32-7.43)
[2024-08-16] MEDS: IPRAT-ALBUT 0.5-2.5 MG/3 ML NEB 1 NEB IH (16:38)
[2024-08-16 16:40] LABS: Basophils Absolute Auto 0.05 K/uL (0.00-0.30); Basophils Percent Auto 0.5 % (0.0-3.0); Eosinophils Absolute Auto 0.49 K/uL (0.00-0.50); Eosinophils Percent Auto 5.2 % (0.0-7.0); Hematocrit 35.9 % (37.0-53.0); Hemoglobin* 11.9 gm/dL (13.5-17.5); Immature Granulocytes Abs Auto 0.03 K/uL (0.00-0.30); Immature Granulocytes Pct Auto 0.3 %; Lymphocytes Percent Auto 12.9 % (20-44); Mean Corpuscular HGB Conc 33 gm/dL (32-36); Mean Corpuscular Hemoglobin 32 pg (26-34); Mean Corpuscular Volume 96 fL (80-100); Monocytes Percent Auto 8.6 % (0.0-11.0); Neutrophils Percent Auto 72.5 % (42.0-72.0); Platelet Count* 263 K/uL (140-440); RDW Coefficient of Variation % 14.5 % (11.5-15.5); Red Blood Count 3.76 m/uL (4.30-5.90); White Blood Count* 9.46 K/uL (4.50-11.00)
[2024-08-16 16:47] LABS: Slide Review Reflex No
[2024-08-16 17:03] LABS: Chloride* 103 mmol/L (96-114); Potassium* 3.8 mmol/L (3.6-5.1); Sodium* 137 mmol/L (135-149)
[2024-08-16 17:06] LABS: Anion Gap 13 mEq/L (7-15); Blood Urea Nitrogen* 17 mg/dL (7-30); Carbon Dioxide* 21 mmol/L (20-32); Creatinine* 2.7 mg/dL (0.5-1.5); Est. Creatinine Clearance* 22.28; Estimated Glomerular Filt Rate 26 ml/min
[2024-08-16 17:07] LABS: Glucose* 88 mg/dL (60-115)
[2024-08-16 17:10] LABS: PCR FLU A Negative PCR FLU A (Negative); PCR FLU B Negative PCR FLU B (Negative); SARS PCR* Negative SARS-CoV-2 (Negative)
[2024-08-16 17:16] LABS: NT Pro B Type NatriureticPept* 26000 pg/mL
[2024-08-16 17:19] LABS: Troponin I* 0.05 ng/mL (0.01-0.04)
[2024-08-16] MEDS: FUROSEMIDE 10 MG/ML inj 40 MG IVP (18:04)
[2024-08-17 00:16] VITALS: BP 122/84; PULSE 96; RESP 20; O2SAT 95
[2024-08-17 01:02] VITALS: O2SAT 94
== END 2024-08-17 01:03 | disposition other institution (70) ==
PROVIDERS: Emergency Provider Emergency Medicine
DX: I50.9 Heart failure, unspecified (principal); N18.9 Chronic kidney disease, unspecified
CPT/HCPCS: 36415; 71046; 80048; 82803; 83880; 84484; 85025; 87040; 87631; 94761; 96374; 99284; 99285; J1940

== ENCOUNTER 2024-08-17 00:50 | Outpatient (CLI) | payer MEDICAID, SELFPAY | END 2024-08-17 00:51 | disposition home or self-care (01) | LOC: AMB 08-18 13:12 | PROVIDERS: Visit Provider Family Medicine | DX: I50.9 Heart failure, unspecified (principal); R09.02 Hypoxemia; N18.9 Chronic kidney disease, unspecified; R79.89 Other specified abnormal findings of blood chemistry | CPT/HCPCS: A0425; A0427 ==

== ENCOUNTER 2024-09-05 05:05 | Outpatient (CLI) | payer MEDICAID, SELFPAY | END 2024-09-05 05:06 | disposition home or self-care (01) | LOC: AMB 09-06 15:27 | PROVIDERS: Visit Provider Family Medicine | DX: R06.09 Other forms of dyspnea (principal) | CPT/HCPCS: A0425; A0427 ==

== ENCOUNTER 2024-09-05 05:29 | Emergency (ER) | payer MEDICAID, SELFPAY ==
[2024-09-05] VITALS (21 sets, daily range): BP systolic 99–143; BP diastolic 61–117; PULSE 106–128; RESP 8–41; TEMP 36.6; O2SAT 63–99
--- OUTSIDE RECORDS SUMMARY | 2024-09-05 05:31 | XMS_ITS | Encounter Summary ---
Author Organization [facility] Address [address] [place] [address] Care Team Providers Care Lusterer Name Role Phone Unavailable Primary Care Provider Unavailabl e Encounter Details Date Type Department Care Team (Late st Contact Info) Description 07/21/2024 Orders Only Division of Nephrology and Hypertension, [facility], in [place], [place] [address] [place] [phone] Danae Zelaya, FLAVIO, C.N.P., M.S.N. [address] [place] [address] Epididymitis Acute (Primary Dx) Social History Tobacco [...]
--- OUTSIDE RECORDS SUMMARY | 2024-09-05 05:31 | XMS_ITS | Encounter Summary ---
Author Organization [facility] Address [address] [place] [address] Care Team Providers Care Bagging Salvager Name Role Phone Unavailable Primary Care Provider Unavailabl e Encounter Details Date Type Department Care Team (Late st Contact Info) Description 07/23/2024 Orders Only Division of Nephrology and Hypertension, [facility], in [place], [place] [address] [place] [address] Danae Zelaya, FLAVIO, C.N.P., M.S.N. [address] [place] [address] Social History Tobacco Use Types Packs/Day Years [...]
--- OUTSIDE RECORDS SUMMARY | 2024-09-05 05:31 | XMS_ITS | CONTINUITY OF CARE DOCUMENT ---
Author Name User, QIE Address [address] [place] [address] Organization [facility] Address [address] [place] [address] [address] [place] [address] Phone [phone] Care Team Providers Care Collar Setter Overlock Name Role Phone User, QIE Unavailable Unavailable PROBLEMS Condition Status Date Provider Notes Organizati on CKD STAGE ESRD ON DIALYSIS GFR <15 active Trisha Barone , [address] [place] [address] [address] [place] [address] [facility] VITAL SIGNS Date Observation Value Provider Organization blood pressure, diastolic 81 mm[Hg] Lenora oClon RN RN, [address] [place] [address] [address] [facility] blood pressure, systolic 121 mm[Hg] Lenora Colon RN RN, [address] [place] [address] [address] [facility] blood pressure, site #1 Upper arm Lenora Colon RN RN, [address] [place] [address] [address] [facility] pulse rate 70 /min Lenora Colon RN RN, [address] [place] [address] [address] [facility] Body Mass Index (Ratio) 18.46 kg/m2 Lenora Colon RN RN, [address] [place] [address] [address] [facility] weight E&M 121 [lb_av] Lenora Colon RN RN, [address] [place] [address] [address] [facility] respiratory rate E&M 18 /min Lenora Colon RN RN, [address] [place] [address] [address] [facility] blood pressure, diastolic, right arm 81 mm[Hg] Lenora Colon RN RN, [address] [place] [address] [address] [place] [address] [facility] blood pressure, systolic, right arm 121 mm[Hg] Lenora Colon RN RN, [address] [place] [address] [address] [place] [address] [facility] temperature E&M 97.5 [degF] Lenora Colon RN RN, [address] [place] [address] [address] [place] [address] [facility] height E&M 68 [in_i] Lenora Colon RN RN, [address] [place] [address] [address] [place] [address] [facility] blood pressure, diastolic 81 mm[Hg] Trisha Barone [address] [place] [address] [address] [place] [address] [facility] blood pressure, systolic 170 mm[Hg] Trisha Abisai , [address] [place] [address] [address] [place] [address] [facility] Body Mass Index (Ratio) 18.31 kg/m2 Trisha Barone [address] [place] [address] [address] [place] [address] [facility] weight E&M 120 [lb_av] Trisha Barone [address] [place] [address] [address] [place] [address] [facility] height E&M 68 [in_i] Trisha Abisai [address] [place] [address] [address] [place] [address] [facility] pulse rate 71 /min Trisha Barone [address] [place] [address] [address] [place] [address] [facility] blood pressure, site #2 Upper arm Trisha Abisai [address] [place] [address] [address] [place] [address] [facility] blood pressure, diastolic, left arm 81 mm[Hg] Trisha Barone [address] [place] [address] [address] [place] [address] [facility] blood pressure, systolic, left arm 170 mm[Hg] Trisha Barone [address] [place] [address] [address] [place] [address] [facility] blood pressure, site #1 Upper arm Trisha Abisai [address] [place] [address] [address] [facility] [address] [facility] blood pressure, diastolic, right arm 80 mm[Hg] Trisha Barone [address] [place] [address] 2 [facility] [address] [facility] blood pressure, systolic, right arm 114 mm[Hg] Trisha Barone [address] [address] [facility] ALLERGIES Allergy Name Onset Date Reaction Criticality Status Provider Or ganization RANITIDINE High Criticality active R masoud Barone [address] [place] [address] 2 [facility] [address] [facility] HISTORY OF MEDICATION USE Medication Instructions Status Dates Provider Indications Com ments Organization TAB-A-KENJI TABS TAKE 1 TABLET BY MOUTH ONCE DAILY. active Trisha Barone [address] [address] [facility] sodium bicarbonate 650 mg tablet TAKE 2 TABLETS BY MOUTH IN THE MORNING, 2 TABLETS IN THE EVENING AND 2 TABLETS AT BEDTIME. completed - 06/[address] [address] [facility] atorvastatin 40 mg tablet TAKE 1 TABLET (40 MG) BY MOUTH AT BEDTIME. 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 Lenora Colon RN, RN, [address] [place] [address] [facility] social history E&M Patient willy pedersen smokes sometimes.; Patient has been counseled to quit.; Marijuana Use: Y; Lenora Colon RN, RN, [address] [place] [address] [facility] personal history of marijuana use yes Lenora Colon RN, RN, [address] [place] [address] [facility] smoking status Current some day smoker Lenora Colon RN, RN, [address] [place] [address] 2 [facility] [address] [facility] social history reviewed E&M reviewed - no changes required Lenora Colon RN RN, [address] [place] [address] [address] [facility] [address] [facility] smoking/tobacco cessation, patient education and counseling yes Lenora Colon RN RN, [address] [place] [address] [address] [facility] [address] [facility] handedness right Lit Miller MD, MD, [address] [facility] [address] [facility] social history E&M Patient willy ntly smokes sometimes.; Marijuana Use: Y; Trisha Barone [address] [facility] [address] [facility] personal history of marijuana use yes Trisha Barone [address] [facility] [address] [facility] social history reviewed E&M reviewed - no changes required Trisha Barone [address] [facility] [address] [facility] smoking status Current some day smoker Trisha Barone [address] [facility] [address] [facility] personal history of marijuana use yes Trisha Barone [address] [facility] [address] [facility] social history E&M Patient willy pedersen smokes every day.; Marijuana Use: Y; Trisha Barone [address] [facility] [address] [facility] social history reviewed E&M reviewed - no changes required Trisha Barone [address] [facility] [address] [facility] smoking status Current every da y smoker Trisha Barone [address] [facility] [address] [facility] FAMILY HISTORY Family Member Condition Mother Unknown INSURANCE PROVIDERS Payer name Policy type / Coverage type Tracey red green party ID [employer] [place] - [place] [id number] TREATMENT PLAN Date Name Provider Vein Mapping Kaitlyn Aguilar DMS, RVT RDMS, RVT, [address] [place] [address] [address] [facility] [address] HISTORY OF PROCEDURES Procedure Date Procedure Name Provider Procedure Notes Status Organization INJECTION MIDAZOLAM HCL PER 1 MG Lit Miller MD, MD, [address] [place] [address] completed [facility] INJECTION FENTANYL CITRATE 100MCG Lit Miller MD, MD, [address] [place] [address] completed [facility] INJ HEPARIN SODIUM PER 1000 UNITS Lit Miller MD, MD, [address] [place] [address] completed [facility] INFUS NORMAL SALINE SOLUTION 250 CC Lit Miller MD, MD, [address] [place] [address] completed [facility] Benadryl 50mg Lit Miller MD, MD, [address] [place] [address] completed [facility] Ancef 1g Lit Miller MD, MD, [address] [place] [address] completed [facility] Creation of Brachicephalic, Radiocephalic, Brachiobasilic Lit Miller MD, MD, [address] [place] [address] Left 1st Stage completed [facility] Antibiotic initiated on time-Yes Lit Miller MD, MD, [address] [place] [address] completed [facility] Quailty Measures all negative Lit Miller MD, MD, [address] [place] [address] completed [facility] SNOMED-CT:PATIENT ENCOUNTER Lit Miller MD, MD, [address] [place] [address] completed [facility] SNOMED-CT:PATIENT ENCOUNTER Lit Miller MD, MD, [address] [place] [address] completed [facility]
--- OUTSIDE RECORDS SUMMARY | 2024-09-05 05:31 | XMS_ITS | Clinical Summary ---
Author Organization [facility] Address [address] [facility] [place] [address] Care Team Providers Care Sewer Separation Designer Name Role Phone [facility] Primary Care Provider Allergies Active Allergy Reactions [...] on file Legal Sex Male 9:52 PM PAINT SUPERVISOR Gender Identity Not on file Sexual Orientation Not on file Last Filed Vital Signs Vital Sign Reading Time Taken Comments Blood Pressure 116/67 07/31/2023 3:45 PM PAINT SUPERVISOR Pulse 49 07/31/2023 3:45 PM PAINT SUPERVISOR Temperature 36.4 C (97.5 F) 07/31/2023 3:15 PM PAINT SUPERVISOR Respiratory Rate 16 07/31/2023 3:20 PM PAINT SUPERVISOR Oxygen Saturation 95% 07/31/2023 3:45 PM PAINT SUPERVISOR Inhaled Oxygen Concentration - - Weight 54.5 kg (120 lb 3.2 oz) 07/31/2023 12:05 PM PAINT SUPERVISOR Height 172.7 cm (5' 7.99) 07/31/2023 12:[address] Body Mass Index 18.28 07/31/2023 12:05 PM PAINT SUPERVISOR Plan of Treatment Health Maintenance Due Date [...] patient's age to complete this topic Insurance [facility] Care Teams Sewer Separation Designer Relationship Specialty Start Date End Date Clinic, [address] [address] PCP - General 07/31/23
--- OUTSIDE RECORDS SUMMARY | 2024-09-05 05:31 | XMS_ITS | Encounter Summary ---
Author Organization [facility] Address [address] [place] [address] Care Team Providers Care Director Of Community Services Name Role Phone Unavailable Primary Care Provider Unavailabl e Encounter Details Date Type Department Care Team (Late st Contact Info) Description 08/09/2024 Orders Only Division of Nephrology and Hypertension in [place], [place] [address] [place] [address] Claudio Jain Jr., D.O. [address] [place] [address] Social History Tobacco Use Types Packs/Day Years [...]
--- OUTSIDE RECORDS SUMMARY | 2024-09-05 05:31 | XMS_ITS | Clinical Summary ---
Author Organization [facility] Address [address] [place] [address] Care Team Providers Care Supply Chain Tech Name Role Phone Unavailable Primary Care Provider Unavailabl e Source Comments Patient records contain information from all sites at [facility]. For routine questions regarding patient records, call [phone] during business hours, M-F 8:00 AM - 5:00 PM Central Time. Record requests for emergency care only can be directed to [phone] at any time.[facility] Allergies Active Allergy Reactions Criticality Noted [...] a day. 180 tablet 3 03/19/20 Active nystatin (Nystop) 100,000 unit/gram powder Apply 1 Application topically 3 (three) times a day. Apply to his groin area 15 g 07/23/19 Active fluticasone propion-salmete roL (Advair Diskus) 250-50 mcg/dose diskus inhaler Inhale 1 puff 2 (two) times a day. Rinse mouth with water after use to reduce aftertaste and incidence of candidiasis. Do not swallow. 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 07/21/2024 Orders Only Division of Nephrology and Hypertension, [facility], in [place], [place] [address] [place] [address] Danae Zelaya APRN C.N.P., M.S.N. Epididymitis Acute [...] Relevant to Health Maintenance Results * (ABNORMAL) Renal Function Panel (03/19/2023 8:11 AM CDT) Potassium, S 5.1 3.6 - 5.2 mmol/L 03/19/2023 10:30 AM CDT DTL Sodium, S 136 135 - 145 mmol/L 03/19/2023 10:30 AM CDT DTL Chloride, S 102 98 - 107 mmol/L 03/19/2023 10:30 AM CDT DTL Bicarbonate, S 17(L) 22 - 29 mmol/L 03/19/2023 10:30 AM CDT DTL Anion Gap 17(H) 7 - 15 03/19/2023 10:30 AM CDT DTL BUN (Blood Urea Nitrogen), S 55(H) 8 - 24 mg/dL 03/19/2023 10:30 AM CDT DTL Creatinine 3.57(H) 0.74 - 1.35 mg/dL 03/19/2023 10:30 AM CDT DTL Estimated GFR (eGFR) 18(L) >=60 mL/min/BSA 03/19/2023 10:30 AM CDT DTL Comment: Estimated GFR calculated using the 2020 CKD_EPI creatinine equation. Calcium, Total, S 9.4 8.8 - 10.2 mg/dL 03/19/2023 10:30 AM CDT DTL Glucose, S 93 70 - 140 mg/dL 03/19/2023 10:30 AM CDT DTL Albumin, S 3.7 3.5 - 5.0 g/dL 03/19/2023 10:30 AM CDT DTL Phosphorus (Inorganic), S 5.7(H) 2.5 - 4.5 mg/dL 03/19/2023 10:30 AM CDT DTL Blood (Blood, Venous) 03/19/2023 8:11 AM CDT 03/19/2023 9:01 AM CDT us Daria Johnson APRN.NDylan., M.S.N. LAB BLOOD A DD-ON Final Result [facility] [address] [place] [address], [facility] [address] [place] [address] * (ABNORMAL) Lipid Panel (03/15/2023 5:56 AM [...] P.A.-C. LAB BLOOD ADD-ON Final Resu lt [facility] [address] [place] [address], [facility] [address] [place] [address] * HIV-1/-2 Ag and Ab Screen, Plasma (03/14/2023 6:31 PM CDT) [facility] HIV-1/-2 Ag and Ab Screen, P Negative Negative 03/14/2023 9:01 PM CDT [facility] Comment: Negative result does not rule out HIV infection. If exposure to HIV infection occurred <14 days ago, contact the laboratory to request addition of HIV-1/HIV-2 RNA detection, Plasma (HIP12). Blood (Blood, Venous) 03/14/2023 6:31 PM CDT 03/14/2023 8:20 PM CDT us Clai B Catto P.A.-C. LAB MICROBIOLOGY - BLOOD OR DERABLES Final Result [facility] [address] [place] [address] [facility] [address] [place] [address] * (ABNORMAL) HCV Ab Scrn w/Reflex to HCV PCR, Serum (03/14/2023 6:31 PM CDT) HCV Ab Screen, S Reactive(A ) Negative 03/14/2023 11:27 PM CDT [facility] Comment: Supplemental testing for HCV RNA is ordered to rule out active HCV infection. Xsivbc-fr-iilunx ratio is >=1.00 and <8.00. Blood (Blood, Venous) 03/14/2023 6:31 PM CDT 03/14/2023 8:21 PM CDT Clai B Catto P.A.-C. LAB MICROBIOLOGY - BLOOD OR DERABLES Final Result [facility] [address] [place] [address] [facility] [address] [place] [address] * Hepatitis B Surface Antigen (03/14/2023 6:31 PM CDT) HBs Antigen, S Negative Negative 03/14/2023 11:09 PM CDT [facility] Blood (Blood, Venous) 03/14/2023 6:31 PM CDT 03/14/2023 8:21 PM CDT Clai B Catto P.A.-C. LAB MICROBIOLOGY - BLOOD OR DERABLES Final Result [facility] [address] [place] [address] [facility] [address] [place] [phone] from Last 3 Months or Most Recently Relevant to Health Maintenance Insurance [facility] Advance Directives For more information, please contact: [phone] * Full Code (Latest Code Status on File) Date Activated Date Inactivated Comments 03/13/2023 4:37 AM 03/19/2023 5:51 PM Question Answer Comments Full Code: Not Discussed Due to: Patient not available
--- OUTSIDE RECORDS SUMMARY | 2024-09-05 05:32 | XMS_ITS | Clinical Summary ---
Author Organization [facility] Address [address] [place] [address] Care Team Providers Care Professional Benefits Sales Consultant Name Role Phone Pcp, No Unavailable Unavailable Shelia Dietrich DO Primary Care Provider [phone] Merari Jenkins RN Unavailable Allergies Active Allergy Reactions Criticality Noted Date Comments Ranitidine Itching 05/18/2023 Medications aspirin chewable 81 mg chewable tabletIndicatio ns:Hypertension CHEW 1 TABLET (81 MG) BY MOUTH ONCE DAILY. 90 Tablet 3 02/10/20 24 Active WalkerIndicatio ns:Foot pain, bilateral Walker with front wheels for home use. 1 Each 05/24/20 24 Active atorvastatin (LIPITOR) 40 mg tabletIndicatio ns:Lipid disorder Take 1 Tablet (40 mg) by mouth at bedtime. 30 Tablet 4 4:01 PM SPECIAL CLASS WELDER 05/25/20 24 Active multivitamin with folic acid 0.4 mg (Daily-Ernestina, with folic acid,) Take 1 Tablet by mouth once daily. Active bumetanide 1 mg tablet Take 2 mg by mouth once daily in the morning. Active b complex-vitamin c-folic acid 1 mg (Triphrocaps) 1 mg capsule Take 1 Capsule by mouth once daily in the afternoon. Active tiotropium 18 mcg inhalation capsule Inhale 18 mcg by mouth once daily. Using a SPRIVA HANDIHALER andre the capsule, then by mouth breathe in the powder. Inhale twice from the same capsule for full dose. Active fluticasone propion-salmete roL (Advair Diskus) 250-50 mcg/Dose diskus inhaler Inhale 1 Puff by mouth every 12 hours. Active calcitrioL 0.25 mcg capsule Take 0.75 mcg by mouth. With dialysis Active carvediloL 12.5 mg tabletIndicatio ns:Hypertension Take 1 Tablet (12.5 mg) by mouth two times daily with meals. 60 Tablet 5 11:01 AM CDT 08/24/19 25 Active oxygen-air delivery systemsIndicati ons:Chronic obstructive pulmonary disease, unspecified COPD type (HC) Oxygen for home use. Liters per minute: 2 per nasal cannula. Frequency of use: Continuous with portability;. Length of need: 999 Months. 1 Each 08/24/19 25 Active bumetanide (BUMEX) 2 mg tabletIndicatio ns:HFrEF (heart failure with reduced ejection fraction) (HC) Take 1 Tablet (2 mg) by mouth once daily in the morning. 30 Tablet 4 4:01 PM SPECIAL CLASS WELDER 05/25/20 24 025 Discontinued( Pharmacist change per medication history (E-cancel not sent)) carvediloL (COREG) 6.25 mg tabletIndicatio ns:HFrEF (heart failure with reduced ejection fraction) (HC),Hypertensi on Take 1 Tablet (6.25 mg) by mouth two times daily with meals. 60 Tablet 4 4:01 PM SPECIAL CLASS WELDER 05/25/20 24 025 Discontinued( *IP Discontinued) Active Problems Problem Noted Date Diagnosed Date Palliative care encounter 08/23/2024 Goals of care, counseling/discussion 08/23/2024 ACP (advance care planning) 08/23/2024 Right lower lobe lung mass 08/19/2024 Hilar lymphadenopathy 08/19/2024 Mediastinal lymphadenopathy 08/19/2024 Paratracheal lymphadenopathy 08/19/2024 Acute hypoxemic respiratory failure 08/17/2024 Malignant hypertensive heart and renal disease with [...] Problem Noted Date Diagnosed Date Resolved Date Palliative care encounter 08/23/2024 Alcoholism 05/27/2024 05/27/2024 CKD (chronic kidney disease) stage 5, GFR less than 15 ml/min 04/26/2024 05/06/2024 Acute hypoxic respiratory failure 04/26/2024 05/27/2024 NATALYA (acute kidney injury) 05/24/2023 Acute respiratory failure with hypoxia 05/19/2023 07/28/2023 Encounters Date Type Department Care Team Description 09/02/2024 Telephone [facility] [address] [facility] [address] Shelia Dietrich, Follow Up 08/31/[address] [place] [address] Niesha Acosta NP 08/26/2024 Telephone [facility] [address] [place] [address] [facility] Cancer Referral ( Non-small cell cancer of right lung (HC) [C34.91]) 08/26/2024 Telephone [facility] [place] [facility] [address] [place] [address] Edilberto Dial MD Results (BIOPSY RESULTS) 08/26/2024 Telephone [facility] [address] [facility] [address] [place] [address] Archie August MD Error-please disregard 08/25/2024 Patient Outreach [facility] [address] [place] [address] Aparna Gilmore, RN Primary RN Care Management; Hospital F/U (LACE 65) 08/23/2024 Travel 08/19/2024 2:50 PM CDT Anesthesia Event [address] [address] Sue Briceño CRNA Sang[place], [place], FORMATION FRACTURING OPERATOR 08/19/2024 1:24 PM CDT - 08/19/2024 3:28 PM CDT Surgery [address] [address] Edilberto Dial MD BRONCHOSCOPY ENDOBRONCHIAL ULTRASOUND FINE NEEDLE ASPIRATE 08/19/2024 Travel 08/17/2024 2:18 AM CDT - 08/24/2024 12:02 PM CDT Hospital Encounter [address] [address] Doctors(d), [facility], MD Jethro Chester, MD Brody Lynn, Amy Shah, Ivette Munoz MBBS [facility] Internal Hypertension (Primary Dx); Chronic obstructive pulmonary disease, unspecified COPD type (HC) Discharge Disposition: Home Self Care 06/28/2024 Patient Outreach [facility] [address] [place] [address] Adrianna Collins, JOSE LUIS Student Primary RN Care Management (Lace score 60); Hospital F/U 06/25/2024 7:36 PM SPECIAL CLASS WELDER - 06/26/2024 11:45 AM SPECIAL CLASS WELDER Hospital Encounter [facility] [address] [place] [address] [facility] Hospitalist [facility] [place] Arun Martinez MD Chaudhry, Viki Abreu MD Discharge Disposition: Home Self Care from Last [...] or yelled at (see row info)? No 08/18/2024 Interpersonal Safety Abuse 12 - 18 Not on file 08/18/2024 Interpersonal Safety Ambulatory Vulnerability No t on file 08/18/2024 Utilities Answer Date Recorded Do you have trouble paying f or utilities (for example, heat, electricity, water, phone)? 1 05/19/2024 Sex and Gender Information Value Date Recorded Sex Assigned at Not on file Legal Sex Male 4:18 PM SPECIAL CLASS WELDER Gender Identity Not on file Sexual Orientation Not on file Obstetrics History Last Filed Vital Signs Vital Sign Reading Time Taken Comments Blood Pressure 178/73 08/23/2024 5:42 PM CDT Pulse 71 08/23/2024 5:42 PM CDT Temperature 36.7 C (98.1 F) 08/23/2024 2:53 PM CDT Respiratory Rate 20 08/23/2024 3:55 PM CDT Oxygen Saturation 92% 08/23/2024 5:42 PM CDT Inhaled Oxygen Concentration - - Weight 51.9 kg (114 lb 6.7 oz) 08/23/2024 11:16 AM CDT Height 174 cm (5' 8.5) 05/17/2024 3:00 PM SPECIAL CLASS WELDER Body Mass Index 17.14 05/17/2024 3:00 PM SPECIAL CLASS WELDER Plan of Treatment Upcoming Encounters Date Type Department Care Team (Late st Contact Info) Description 2024 11:15 AM CDT Office Visit [facility] [address] [place] [address] Shelia Dietrich, DO [address] [place] [address] Health Maintenance Due Date Last Done Comments [...] same day) for age 18+ 07/27/2024 07/28/2023 COVID-19 vaccine series (6 - Pfizer risk 2023- season) 2024 05/08/2024, 02/20/2022, 04/04/2021, Additional history exists Tdap Completed 10/09/2012 Zoster (shingles) series for age 50+ Completed 05/31/2020, 02/05/2019 Hepatitis C screening for ag e 18-79 Completed 04/28/2024 Influenza Vaccine Completed 05/08/2024, , 04/04/2021, Additional history exists Procedures Procedure Name Priority Date/Time Associated Diagnosis Comments XR CHEST 1 VIEW PA OR AP Routine 08/23/2024 2:[address] BIOPSY LUNG RIGHT Routine 08/23/2024 2:39 PM CDT PATH FNA CYTOLOGY ASP CYTOLOGY Timed 08/23/2024 2:21 PM CDT FOCUS Timed 08/23/2024 2:21 PM CDT POTASSIUM Early AM 08/23/2024 6:59 AM CDT CREATININE Early AM 08/23/2024 6:59 AM CDT POTASSIUM Today 08/22/2024 2:15 PM CDT CREATININE Today 08/22/2024 2:15 PM CDT MAGNESIUM Early AM 08/20/2024 11:41 AM CDT POTASSIUM Early AM 08/20/2024 11:41 AM CDT HEMOGLOBIN Early AM 08/20/2024 11:41 AM CDT PROCALCITONIN Early AM 08/20/2024 11:41 AM CDT XR CHEST 1 VIEW PORTABLE Routine 08/19/2024 5:19 PM CDT AFB CULTURE, STAIN Today 08/19/2024 4: 21 PM CDT BRONCHIAL CULTURE, STAIN Today 08/19/2024 4:21 PM CDT BAL COUNT AND DIFF Today 08/19/2024 4: 21 PM CDT ELY PREP, OTHER SOURCE Today 08/19/2024 4:21 PM CDT ANAEROBIC CULTURE Today 08/19/2024 4:2 1 PM CDT AEROBIC BACTERIAL CULTURE, STAIN Today 08/19/2024 3:54 PM CDT ACTINOMYCES CULTURE Today 08/19/2024 3 :54 PM CDT AFB CULTURE, STAIN Today 08/19/2024 3: 54 PM CDT LEY PREP, OTHER SOURCE Today 08/19/2024 3:54 PM CDT ANAEROBIC CULTURE Today 08/19/2024 3:5 4 PM CDT AEROBIC BACTERIAL CULTURE, STAIN Today 08/19/2024 3:49 PM CDT ACTINOMYCES CULTURE Today 08/19/2024 3 :49 PM CDT AFB CULTURE, STAIN Today 08/19/2024 3: 49 PM CDT ELY PREP, OTHER SOURCE Today 08/19/2024 3:49 PM CDT ANAEROBIC CULTURE Today 08/19/2024 3:4 9 PM CDT AEROBIC BACTERIAL CULTURE, STAIN Today 08/19/2024 3:31 PM CDT ACTINOMYCES CULTURE Today 08/19/2024 3 :31 PM CDT AFB CULTURE, STAIN Today 08/19/2024 3: 31 PM CDT EYL PREP, OTHER SOURCE Today 08/19/2024 3:31 PM CDT ANAEROBIC CULTURE Today 08/19/2024 3:3 1 PM CDT PATH NON DUPLIGRAPH OPERATOR CYTOLOGY Today 08/19/2024 3:14 PM CDT ENDOTRACHEAL TUBE Routine 08/19/2024 3:0 8 PM CDT ENDOTRACHEAL TUBE Routine 08/19/2024 3:0 8 PM CDT APTT STAT 08/19/2024 2:44 PM CDT PROTIME-INR STAT 08/19/2024 2:44 PM CDT BRONCHOSCOPY ENDOBRONCHIAL ULTRASOUND FINE NEEDLE ASPIRATE Class D Urgent 08/19/2024 2:34 PM CDT Right lung mass, mediastinal lymphadenopathy Case Notes NCD FNA - entered into teams [id number] kf, ok per lm BRONCHOSCOPY 08/19/2024 2:28 PM CDT MAGNESIUM PIYUSH 08/19/2024 8:50 AM CDT PROCALCITONIN Early AM 08/19/2024 8:50 AM CDT COMP METABOLIC PANEL Early AM 08/19/2024 8:50 AM CDT RENAL FUNCTION PANEL Early AM 08/19/2024 8:50 AM CDT CBC W PLT NO DIFF Early AM 08/19/2024 8:5 0 AM CDT SCAN-CARDIAC STRIP 08/19/2024 12:31 AM CDT HBSAG (HBS) PIYUSH 08/18/2024 10:22 PM CDT SCAN-CARDIAC STRIP 08/18/2024 9: 58 PM CDT SCAN-CARDIAC STRIP 08/18/2024 8: 22 AM CDT XR CHEST 1 VIEW PORTABLE Routine 08/18/2024 7:38 AM CDT WHITE BLOOD COUNT Early AM 08/18/2024 5:2 3 AM CDT HEMOGLOBIN Early AM 08/18/2024 5:23 AM CDT BASIC METABOLIC PANEL Early AM 08/18/2024 5:23 AM CDT SCAN-CARDIAC STRIP 08/18/2024 12:45 AM CDT TROPONIN T (HS) ONE TIME Timed 08/18/2024 12:34 AM CDT LACTATE VENOUS Timed 08/18/2024 12:34 AM CDT EKG 12 LEAD STAT 08/18/2024 12:22 AM CDT CBC WITH AUTO DIFFERENTIAL STAT 08/17/2024 10:27 PM CDT TROPONIN T (HS) ACUTE W/2HR REFLEX STAT 08/17/2024 10:27 PM CDT LACTATE VENOUS Today 08/17/2024 10:27 PM CDT CBC WITH AUTO DIFFERENTIAL STAT 08/17/2024 10:27 PM CDT COMP METABOLIC PANEL STAT 08/17/2024 10:27 PM CDT PRO-BNP STAT 08/17/2024 10:27 PM CDT BLOOD GAS,VENOUS STAT 08/17/2024 10:27 PM CDT XR CHEST 1 VIEW PORTABLE STAT 08/17/2024 9:[address] CHEST W Routine 08/17/2024 2:02 PM CDT ISTAT EG6+ ABG Timed 08/17/2024 12:46 PM CDT LEGIONELLA AND PNEUMOCOCCAL URINE ANTIGEN Today 08/17/2024 12:25 PM CDT XR CHEST 2 VIEWS PA AND LATERAL Routine 08/17/2024 11:15 AM CDT SCAN CORRESP-IMAGING 08/17/2024 8:42 AM CDT SCAN-CARDIAC STRIP 08/17/2024 12:00 AM CDT SCAN CORRESP-IMAGING 06/28/2024 3:02 PM SPECIAL CLASS WELDER SCAN CORRESP-EKG RESULTS 06/28/2024 2:48 PM SPECIAL CLASS WELDER SCAN-CARDIAC STRIP 06/26/2024 7: 56 AM SPECIAL CLASS WELDER HBSAG (HBS) STAT 06/26/2024 7:16 AM SPECIAL CLASS WELDER PLATELET COUNT Early AM 06/26/2024 7:16 AM SPECIAL CLASS WELDER HEMOGLOBIN Early AM 06/26/2024 7:16 AM SPECIAL CLASS WELDER WHITE BLOOD COUNT Early AM 06/26/2024 7:1 6 AM SPECIAL CLASS WELDER MAGNESIUM Early AM 06/26/2024 7:16 AM SPECIAL CLASS WELDER POTASSIUM Early AM 06/26/2024 7:16 AM SPECIAL CLASS WELDER SODIUM Early AM 06/26/2024 7:16 AM SPECIAL CLASS WELDER SCAN-CARDIAC STRIP 06/25/2024 8: 41 PM SPECIAL CLASS WELDER ANTI HCV Early AM 04/28/2024 5:01 AM SPECIAL CLASS WELDER from Last 3 Months or Most Recently Relevant to Health Maintenance Results * XR CHEST 1 VIEW PA OR AP (08/23/2024 2:46 PM CDT) Anatomical Region Laterality Modality CHEST, THORAX, Lung, HEART Digit al Radiography 08/23/2024 2:46 PM CDT Impressions 08/23/2024 2:55 PM CDT 1. Masslike density at the right lung base grossly unchanged from 4 days prior. No pneumothorax. 2. Old posterior right rib fracture. Left hemithorax clear. Right IJ venous catheter, unchanged. Narrative 08/23/2024 2:55 PM CDT For Patients: As a result of the s Act, medical imaging exams and procedure reports are released immediately into your electronic medical record. You may view this report before your referring provider. If you have questions, please contact your health care provider. EXAM: XR CHEST 1 VIEW PA OR AP LOCATION: [facility] DATE: 08/23/2024 INDICATION: Post Procedure, CT-guided right lung biopsy. COMPARISON: 08/19/2024. Images from CT-guided lung biopsy procedure earlier on 08/23/2024. Procedure Note Lev Lloyd MD - 08/23/2024 For Patients: As a result of the s Act, medical imagingexams and procedure reports are released immediately into your electronicmedical record. You may view this report before your referring provider.If you have questions, please contact your health care provider. EXAM: XR CHEST 1 VIEW PA OR AP LOCATION: [facility] DATE: 08/23/2024 INDICATION: Post Procedure, CT-guided right lung biopsy. COMPARISON: 08/19/2024. Images from CT-guided lung biopsy procedure earlieron 08/23/2024. IMPRESSION: 1. Masslike density at the right lung base grossly unchanged from 4 daysprior. No pneumothorax. 2. Old posterior right rib fracture. Left hemithorax clear. Right IJvenous catheter, unchanged. us Winsome Rao MD GENERAL IMAGING Final Resu lt * CT BIOPSY LUNG RIGHT (08/23/2024 2:39 PM CDT) Anatomical Region Laterality Modality Lung Computed Tomogra phy, Other, Other 08/23/2024 2:39 PM CDT Impressions 08/23/2024 4:[address]-guided core biopsy of masslike area consolidation in the posterior right lower lobe. 2. If the biopsy is inconclusive, suggest obtaining PET CT to assess for FDG avid areas of the lesion that could be targeted in the future. Reference CPT Codes: 70816, , Narrative 08/23/2024 4:18 PM CDT For Patients: As a result of the Cures Act, medical imaging exams and procedure reports are released immediately into your electronic medical record. You may view this report before your referring provider. If you have questions, please contact your health care provider. EXAM: 1. PERCUTANEOUS BIOPSY RIGHT LOWER LOBE MASSLIKE CONSOLIDATION 2. CT GUIDANCE 3. CONSCIOUS SEDATION LOCATION: [facility] DATE: 08/23/2024 INDICATION: free text)->lung biopsy s/p Ebus for lung mass TECHNIQUE: Dose reduction techniques were used. PROCEDURE: Informed consent obtained. Site marked. Prior images reviewed. Required items made available. Patient identity confirmed verbally and with arm band. Patient reevaluated immediately before administering sedation. [place] protocol was followed. Time out performed. The site was prepped and draped in sterile fashion. 10 mL of 1% lidocaine was infused into the local soft tissues. Using standard technique and under direct CT guidance, a 20-gauge biopsy device was used to obtain 4 core biopsies. Touch prep slides were prepared. Samples were placed in formalin and sent to histology. The patient tolerated the procedure well. No immediate complications. FINDINGS: Images obtained during the biopsy demonstrate the cutting-edge of the needle within the central and peripheral portions of the masslike area consolidation in the posterior right lower lobe. Postbiopsy images demonstrate no postprocedural hemorrhage or pneumothorax. SEDATION: Versed 2 mg. Fentanyl 100 mcg. The procedure was performed with administration intravenous conscious sedation with appropriate preoperative, intraoperative, and postoperative evaluation. 20 to minutes of supervised face to face conscious sedation time was provided by a radiology nurse under my direct supervision. Procedure Note Winsome Rao MD - 08/23/2024 For Patients: As a result of the Cures Act, medical imagingexams and procedure reports are released immediately into your electronicmedical record. You may view this report before your referring provider.If you have questions, please contact your health care provider. EXAM: 1. PERCUTANEOUS BIOPSY RIGHT LOWER LOBE MASSLIKE CONSOLIDATION 2. CT GUIDANCE 3. CONSCIOUS SEDATION LOCATION: [facility] DATE: 08/23/2024 INDICATION: free text)->lung biopsy s/p Ebus for lung mass TECHNIQUE: Dose reduction techniques were used. PROCEDURE: Informed consent obtained. Site marked. Prior images reviewed.Required items made available. Patient identity confirmed verbally andwith arm band. Patient reevaluated immediately before administeringsedation. [place] protocol was followed. Time out performed. The sitewas prepped and draped in sterile fashion. 10 mL of 1% lidocaine wasinfused into the local soft tissues. Using standard technique and underdirect CT guidance, a 20-gauge biopsy device was used to obtain 4 corebiopsies. Touch prep slides were prepared. Samples were placed in formalin and sent to histology. The patienttolerated the procedure well. No immediate complications. FINDINGS: Images obtained during the biopsy demonstrate the cutting-edgeof the needle within the central and peripheral portions of the masslikearea consolidation in the posterior right lower lobe. Postbiopsy imagesdemonstrate no postprocedural hemorrhage or pneumothorax. SEDATION: Versed 2 mg. Fentanyl 100 mcg. The procedure was performed withadministration intravenous conscious sedation with appropriatepreoperative, intraoperative, and postoperative evaluation. 20 to minutes of supervised face to face conscious sedation time wasprovided by a radiology nurse under my direct supervision. IMPRESSION: 1. CT-guided core biopsy of masslike area consolidation in the posteriorright lower lobe. 2. If the biopsy is inconclusive, suggest obtaining PET CT to assess forFDG avid areas of the lesion that could be targeted in the future. Reference CPT Codes: 79053, , us Niesha Acosta CONCRETE MIXER OPERATOR HELPER CT Final Re sult * FOCUS (08/23/2024 2:21 PM CDT) Aspirate SPECIMEN OBTAINED BY ASPIRATION / Unknown 08/23/2024 2:21 PM CDT 08/25/2024 6:33 AM CDT us Niesha Acosta CONCRETE MIXER OPERATOR HELPER LABORATORY Final Re sult [facility] [address] [place] [address], [place] * PATH FNA Cytology ASP Cytology (08/23/2024 2:21 PM CDT) Case Report Medical Cytology Report Case: [id number] Authorizing Provider: Niesha Acosta NP Collected: 08/23/2024 1421 Ordering Location: [facility] Received: 08/23/2024 1436 Pathologist: Thai Ojeda MD Specimen: Aspirate 3:14 PM CDT [facility] Amendment 08/25/2024 - Amendment issued to report PD-L1 results. See final diagnosis section. 08/31/2024 - Amendment to report [facility] Lung Targeted Next Generation Sequencing results. Please see attached scanned report and updated diagnosis. 3:14 PM CDT [facility] Final Diagnosis A) LUNG, RIGHT LOWER LOBE, IMAGE-GUIDED NEEDLE CORE BIOPSY WITH CYTOLOGIC TOUCH IMPRINTS: 1. Positive for malignancy; adenocarcinoma with mucinous features 2. See comment 3. Ancillary testing: a. PD-L1: - Tumor Proportion Score (TPS): 0% (No PD-L1 expression, TPS less than 1%) - Tumor Cell (TC): 0% (Negative, TC less than 1%) b. NGS (lung panel): - Positive for KRAS mutation; see attached report 3:14 PM CDT [facility] Amendment electronically signed by Trevor Painter MD on 08/31/2024 at 1514 CDT Amendment electronically signed by Soledad Alcocer MD on 08/25/2024 at 1429 CDT at 1819 CDT Comment A) This carcinoma is morphologically consistent with a primary lung carcinoma, but this should be correlated with the patient's overall clinical and radiologic findings to exclude other primaries. In particular gastrointestinal and pancreaticobiliary primaries should be ruled out. On the assumption that this represents a primary lung cancer, the lung ancillary testing protocol is deployed. Case seen in consultation with Dr. Corral. LUNG ANCILLARY TESTING PROTOCOL This patient's sample meets [facility] Thoracic Oncology Program Committee criteria* for reflex testing or such testing has been requested by the ordering physician. Testing will be performed, and the results will be communicated in an amendment to this report. There is no need to call to order the above tests. If there is a need for ancillary tests other than these, please contact the [facility] ([phone]). Slides available for [facility] NGS testing: Insufficient cells on the cytology slides Blocks available for [facility] NGS testing: A2 Blocks available for tests using immunostains and/or FISH (requiring 100 cells): A2 or A3 Blocks available for send out (outside vendor) testing requiring 5 x 5 mm of tumor: QUANTITY NOT SUFFICIENT *[facility] Thoracic Oncology Program Committee reflex testing criteria: Stage IV pulmonary non-small cell carcinoma OR Tumor size >= 4 cm, or lymph node involvement, pulmonary non-small cell carcinoma, neoadjuvant setting OR Resected stage IB - IIIB pulmonary non-small cell carcinoma, adjuvant setting (if not previously performed) - [facility] Lung NGS panel (EGFR, ALK, ROS1, RET, MET, KRAS, BRAF, HRAS, NRAS, ERBB2, NTRK1/2/3) - [facility] PD-L1 SP263 - If RNA NGS fusion analysis fails, FISH for ALK and ROS1 fusion will be attempted 5 3:14 PM CDT [facility] Clinical Information Mr. Reardon is a 63 y.o. who undergoes image-guided needle core biopsy of a masslike area of consolidation in the posterior right lower lobe. On a previous CT scan this was noted to measure at least 9.1 x 4.[address] scan from August 17, 2024 reports the following: IMPRESSION: 1. Enlarging consolidation in the right lower lobe concerning for malignancy with suspected right mediastinal and hilar lymph node metastasis. PET/CT or tissue sampling recommended. Suggest pulmonary consultation. 2. New trace bilateral pleural fluid. 3. Moderate emphysema. 4. Stable left adrenal adenoma. 5. Findings of chronic pancreatitis. Cystic pancreatic masses indeterminate and may related to pancreatitis or likely side branch IPMNs. Follow-up guideline below. 5 3:14 PM CDT [facility] Gross Description A) Received identified as Right Lung is a radiologic guided biopsy specimen. The core biopsy sampling measures 0.9 cm x 0.3 cm in aggregate. The specimen consists of: -2 Air dried slides -1 Formalin vial -0 RPMI vials The following were prepared from the specimen submitted: -2 Diff-Quik stained slides -2 H&E stained cell block slides The biopsy material is entirely submitted in 2 cassettes. A2 Cell block material was removed from the patient and placed directly in formalin at 1421 on 08/23/24 and fixed in formalin at least 6 hours and no more than 72 hours. A3 Cell block material was removed from the patient and placed directly in formalin at 1421 on 08/23/24 and fixed in formalin at least 6 hours and no more than 72 hours. 5 3:14 PM CDT [facility] Microscopic Description Specimen adequacy: Adequate for interpretation. All slides were reviewed. The microscopic appearance substantiates the diagnosis. 3:14 PM CDT [facility] Molecular Diagnostics Summary Preanalytical microdissection of tissue/cytology slides for Next Generation Sequencing was performed according to laboratory protocol as follows: Microscopic examination was performed by a pathologist, Dr. Alcocer, to determine specimen adequacy and identify areas of tumor for isolation. Areas of tumor selected and marked by the pathologist were manually harvested by a metallurgy laboratory technician for nucleic acid extraction. 5 3:14 PM CDT [facility] Additional Information Cytology is screened at [facility] - [address], [place] [address] and [facility] - [address], [place] [address] and [facility] Center - [address] [facility] [place] [address] Interpreted at [facility] - [address], [place] [address] Immunohistochemistry controls were reviewed and approved as appropriate by the pathologist during this examination. TEST PERFORMED: PD-L1 (SP263) ANALYSIS BY IMMUNOHISTOCHEMISTRY MATERIALS AND METHODS: - Adequate number of tumor cells are present on the re-cut H&E stain section. Minimum number of tumor cells required is 100 viable tumor cells - The positive and negative control tissue demonstrate appropriate staining TESTING INFORMATION FOR PD-L1 ANALYSIS: PD-L1 assayed by immunohistochemistry with microscopy, following tissue fixation in 10% neutral buffered formalin. Tissue sections are incubated with a PD-L1 rabbit monoclonal antibody (for; to (do) Centers PD-L1 SP263 assay), performed on the for; to (do) Centers BenchMark ULTRA instrument and visualized with OptiView DAB IHC Detection kit and OptiView Amplification Kit. PD-L1 22C3 Tumor Proportion Score (TPS) Interpretation Guidelines for non-small cell lung carcinoma: Tumor Proportion Score is determined by manual morphometry evaluating the number of tumor cells with partial or complete membranous staining (1+ intensity or more) divided by the total number of viable tumor cells. TPS scoring cut-offs: TPS less than 1% (No PD-L1 expression) TPS greater than or equal to 1% and less than 50% (PD-L1 Expression) TPS greater than or equal to 50% (High PD-L1 expression) Tumor Cell (TC) Interpretation Guidelines for non-small cell lung carcinoma: PD-L1 SP263 Tumor cell Score (TC) is determined by manual morphometry, evaluating the percentage of tumor cells (%TC) with any membrane staining above the background. TC scoring cut-offs: TC less than 1% (Negative) TC greater than or equal to 1% (Expression) This [place] SP263 immunohistochemical antibody assay is considered a laboratory developed test for patients with non-small cell lung cancer who are being considered for treatment with atezolizumab. This [place] SP263 immunohistochemical antibody assay is considered a laboratory developed test for patients with non-small cell lung carcinoma who are being considered for treatment with pembrolizumab. This SP263 assay has been validated against the FDA approved PharmDX 22C3 assay. The performance of this assay has not been validated on decalcified specimens. Results on decalcified specimens should be interpreted with caution, given the likelihood of a false negative result on decalcified specimens. References N Engl J Med 2020; 383:8109-7132 10.1056/[id number] J Thorac Oncol 2018;13(3):367-76 https://doi.org/10.101 6/j.jtho.2017.11.112 J Thorac Oncol 2018;13(9):1302-11 https://doi.org/10.101 6/j.jtho.2018.05.013 J Thorac Oncol 2017;12(11):3494-63 https://doi.org /10.1016/j.jtho.2017.0 7.031 Am J Clin Oncol 202;39(15)suppl:8500 10.1200/JCO.202.39.1 5_suppl.8500 Disclaimer Support for the interpretation of this case may have included the use of immunohistochemistry and/or in situ hybridization tests that were performed by [facility] and whose performance characteristics were evaluated by pathologists from [facility]. These tests have not been cleared or approved by the U.S. Food and Drug Administration. These tests are used for clinical purposes and should not be regarded as investigational or for research. This laboratory is certified under the Clinical Laboratory Improvement Amendments of 1988 (CLIA) as qualified to perform high complexity clinical laboratory testing. 3:14 PM CDT [facility] Aspirate SPECIMEN OBTAINED BY ASPIRATION / Unknown 08/23/2024 2:21 PM CDT 08/23/2024 2:36 PM CDT Niesha Acosta NP PATHOLOGY/CYTOLOGY Edite d Result - Final [facility] [address] [place] [address], * (ABNORMAL) POTASSIUM (08/23/2024 6:59 AM CDT) Only the most recent of4 resultswithin the time period is included. POTASSIUM 5.3(H) 3.5 - 5.1 mmol/L 08/23/2024 8:13 AM CDT [facility] Blood BLOOD SPECIMEN / Unknown Butterfly / Unknown 08/23/2024 6:59 AM CDT 08/23/2024 7:02 AM CDT Amy Shah Brody THOMASON CHEMISTRY Final Result [facility] INTERNAL ZIP [address] [address] [facility] [place] [address] * (ABNORMAL) CREATININE (08/23/2024 6:59 AM CDT) Only the most recent of2 resultswithin the time period is included. eGFR 9(L) >90 mL/min/1.7 3m2 08/23/2024 8:13 AM CDT [facility] Comment:As of 2021, eG FR is calculated by the CKD-EPI creatinine equation without race adjustment. eGFR can be influenced by muscle mass, exercise, and diet. The reported eGFR is an estimation only and is only applicable if the renal function is stable. CREATININE 6.35(H) 0.70 - 1.20 mg/dL 08/23/2024 8:13 AM CDT [facility] Blood BLOOD SPECIMEN / Unknown Butterfly / Unknown 08/23/2024 6:59 AM CDT 08/23/2024 7:02 AM CDT Amy Shah Brody THOMASON CHEMISTRY Final Result [facility] INTERNAL ZIP [address] [address] [place] [address] * (ABNORMAL) PROCALCITONIN (08/20/2024 11:41 AM CDT) Only the most recent of2 resultswithin the time period is included. PROCALCITONIN 7.75(H) ng/ml 08/20/2024 12:32 PM CDT [facility] Blood BLOOD SPECIMEN / Unknown Line/Port / Unknown 08/20/2024 11:41 AM CDT 08/20/2024 11:45 AM CDT Narrative [facility] - 08/20/2024 12:32 PM CDT Procalcitonin for initial assessment of Lower Respiratory [...] any concentrations < 2 ng/mL are obtained. Amy Skinner DO SEND OUTS Final Result [facility] INTERNAL ZIP [address] [address] [place] [address] * (ABNORMAL) HEMOGLOBIN (08/20/2024 11:41 AM CDT) Only the most recent of3 resultswithin the time period is included. HEMOGLOBIN 10.5(L) 13.5 - 17.5 g/dL 08/20/2024 11:49 AM CDT [facility] MCV 96 80 - 100 fL 08/20/2024 11:49 AM CDT [facility] Blood BLOOD SPECIMEN / Unknown Line/Port / Unknown 08/20/2024 11:41 AM CDT 08/20/2024 11:45 AM CDT Amy Shah Brody DO HEMATOLOGY Final Result [facility] INTERNAL ZIP [address] [place] [address] * MAGNESIUM (08/20/2024 11:41 AM CDT) Only the most recent of3 resultswithin the time period is included. MAGNESIUM 1.9 1.6 - 2.4 mg/dL 08/20/2024 12:24 PM CDT [facility] Blood BLOOD SPECIMEN / Unknown Line/Port / Unknown 08/20/2024 11:41 AM CDT 08/20/2024 11:45 AM CDT Amy Ingramandrea THOMASON CHEMISTRY Final Result [facility] INTERNAL ZIP [address] [address] [place] [address] * XR CHEST 1 VIEW PORTABLE (08/19/2024 5:19 PM CDT) Only the most recent of3 resultswithin the time period is included. Anatomical Region Laterality Modality HEART, THORAX, CHEST Digital Rad iography 08/19/2024 5:19 PM CDT Impressions 08/19/2024 5:33 PM CDT Masslike consolidation right lower lung increased since previous chest x-ray. Minimal hazy infiltrates left lower lung slightly increased. Right central venous catheter with tip in the SVC. Heart size upper limits of normal, although stable. Pulmonary vascularity upper limits of normal and unchanged. Aortic calcification. Mild thoracic curve. Narrative 08/19/2024 5:33 PM CDT For Patients: As a result of the Cures Act, medical imaging exams and procedure reports are released immediately into your electronic medical record. You may view this report before your referring provider. If you have questions, please contact your health care provider. EXAM: XR CHEST 1 VIEW PORTABLE LOCATION: [facility] DATE: 08/19/2024 INDICATION: Post procedure. COMPARISON: 08/18/2024. Procedure Note Nando Pulido MD - 08/19/2024 For Patients: As a result of the Cures Act, medical imagingexams and procedure reports are released immediately into your electronicmedical record. You may view this report before your referring provider.If you have questions, please contact your health care provider. EXAM: XR CHEST 1 VIEW PORTABLE LOCATION: [facility] DATE: 08/19/2024 INDICATION: Post procedure. COMPARISON: 08/18/2024. IMPRESSION: Masslike consolidation right lower lung increased since previous chestx-ray. Minimal hazy infiltrates left lower lung slightly increased. Rightcentral venous catheter with tip in the SVC. Heart size upper limits ofnormal, although stable. Pulmonary vascularity upper limits of normal andunchanged. Aortic calcification. Mild thoracic curve. us Edilberto Dial MD GENERAL IMAGING Final R esult * BRONCHIAL CULTURE, STAIN (08/19/2024 4:21 PM CDT) CULTURE Usual josé 08/21/2024 8:52 AM CDT [facility] GRAM STAIN 2+ PMNs 08/21/2024 8:52 AM CDT [facility] GRAM STAIN 4+ RBCs 08/21/2024 8:52 AM CDT [facility] GRAM STAIN No Epithelial cells 08/21/2024 8:52 AM CDT [facility] GRAM STAIN No organisms seen 08/21/2024 8:52 AM CDT [facility] GRAM STAIN [facility] [place] 08/21/2024 8:52 AM CDT [facility] Bronchoalveolar Lavage (Right Lower Lobe Lung Bronchoalveolar Lavage) Non-Blood / Unknown 08/19/2024 4:21 PM CDT 08/19/2024 5:14 PM CDT Edilberto Dial MD MICROBIOLOGY Final R esult [facility] [address] [place] [address], [facility] INTERNAL ZIP [address] [address] [facility] [place] [address] * BAL COUNT AND DIFF (08/19/2024 4:21 PM CDT) BODY FLUID SOURCE Bronchoalveolar Lavage 08/19/2024 7:27 PM [facility] Comment:RLL BAL COLOR Grossly Bloody 08/19/2024 7:27 PM [facility] BAL CLARITY Turbid 08/19/2024 7:27 PM [facility] TOTAL NUCLEATED CELLS, BF 109 /cu mm 08/19/2024 7:27 PM [facility] % NEUTROPHILS, BODY FLUID 60 % 08/19/2024 7:27 PM [facility] % LYMPHOCYTES, BODY FLUID 8 % 08/19/2024 7:27 PM [facility] % MONO/MACRO, BAL 32 % 08/19/2024 7:27 PM [facility] BRONCH EPITHELIAL Few 08/19/2024 7:27 PM T [facility] Bronchoalveolar Lavage (Right Lower Lobe Lung Bronchoalveolar Lavage) Non-Blood / Unknown 08/19/2024 4:21 PM CDT 08/19/2024 5:14 PM CDT Narrative [facility] - 08/19/2024 7:27 PM CDT Result may be inaccurate due to clots or cell clumps. Edilberto Dial MD BODY FLUID Final R esult [facility] INTERNAL ZIP [phone] [facility] [employer] [place] [address] * ELY PREP, OTHER SOURCE (08/19/2024 4:21 PM CDT) Only the most recent of4 resultswithin the time period is included. OBSERVATION No fungal elements seen 08/19/2024 6:34 PM CDT [facility] Bronchoalveolar Lavage (Right Lower Lobe Lung Bronchoalveolar Lavage) Non-Blood / Unknown 08/19/2024 4:21 PM CDT 08/19/2024 5:14 PM CDT Edilberto Dial MD MICROBIOLOGY Final R esult [facility] INTERNAL ZIP [address] [address] [place] [address] * ANAEROBIC CULTURE (08/19/2024 4:21 PM CDT) Only the most recent of4 resultswithin the time period is included. CULTURE No anaerobes isolated 08/25/2024 11:15 AM CDT [facility] Bronchoalveolar Lavage (Right Lower Lobe Lung Bronchoalveolar Lavage) Non-Blood / Unknown 08/19/2024 4:21 PM CDT 08/19/2024 5:14 PM CDT us Edilberto Dial MD MICROBIOLOGY Final R esult [facility] [address] [place] [address], [place] * AEROBIC BACTERIAL CULTURE, STAIN (08/19/2024 3:54 PM CDT) Only the most recent of3 resultswithin the time period is included. CULTURE No Growth. 08/24/2024 11:00 AM CDT [facility] GRAM STAIN 2+ PMNs 08/24/2024 11:00 AM CDT [facility] GRAM STAIN 4+ RBCs 08/24/2024 11:00 AM CDT [facility] GRAM STAIN No Epithelial cells 08/24/2024 11:00 AM CDT [facility] GRAM STAIN No organisms seen 08/24/2024 11:00 AM CDT [facility] GRAM STAIN Gram stain peformed by [place], [place] 08/24/2024 11:00 AM CDT [facility] Aspirate (Station 11R Interlobar Lymph Node) Non-Blood / Unknown 08/19/2024 3:54 PM CDT 08/19/2024 5:21 PM CDT Edilberto Dial MD MICROBIOLOGY Final R esult [facility] [address] [address], [facility] INTERNAL ZIP [address] [address] [place] [address] * ACTINOMYCES CULTURE (08/19/2024 3:54 PM CDT) Only the most recent of3 resultswithin the time period is included. CULTURE No Actinomyces isolated. 08/30/2024 6:57 AM CDT [facility] Aspirate (Station 11R Interlobar Lymph Node) Non-Blood / Unknown 08/19/2024 3:54 PM CDT 08/19/2024 5:21 PM CDT us Edilberto Dial MD MICROBIOLOGY Final R esult Performing Organization Address City/[facility]/ZIP Co de Phone Number [facility] [address] [place] [address], * PATH NON DUPLIGRAPH OPERATOR CYTOLOGY (08/19/2024 3:14 PM CDT) Case Report Medical Cytology Report Case: [id number] Authorizing Provider: Edilberto Dial MD Collected: 08/19/2024 1514 Ordering [facility]: [facility] Received: 08/19/2024 1646 Pathologist: Nimesh Corral Jr., MD Specimens: A) - Level 7 Lymph Node, 3cm B) - Station 4R Lower Paratracheal Lymph Node, 2cm C) - Station 11R Interlobar Lymph Node, 1.5cm D) - Right Lower Lobe Lung Bronchial Brushing, @1625 E) - Right Lower Lobe Lung Bronchoalveolar Lavage 08/24/2024 3:55 PM CDT [facility] Final Diagnosis A) STATION 7 SUBCARINAL LYMPH NODE, EBUS-GUIDED FINE NEEDLE ASPIRATION: 1. Lymphoid sampling with a single small non-necrotizing granuloma 2. Seng stain negative for acid-fast organisms 3. Silver stain negative for fungal organisms 4. Flow cytometric analysis negative for monotypic B cell population 5. Negative for metastatic carcinoma B) STATION 4R LOWER PARATRACHEAL LYMPH NODE, EBUS-GUIDED FINE NEEDLE ASPIRATION: 1. Lymphoid sampling with a single small non-necrotizing granuloma 2. Seng stain negative for acid-fast organisms 3. Silver stain negative for fungal organisms 4. Negative for metastatic carcinoma C) STATION 11R INTERLOBAR LYMPH NODE, EBUS-GUIDED FINE NEEDLE ASPIRATION: Benign manny sampling, negative for metastatic carcinoma D) LUNG, RIGHT LOWER LOBE, BRONCHIAL BRUSHING: Negative for malignancy E) LUNG, RIGHT LOWER LOBE, BRONCHOALVEOLAR LAVAGE: A few small groups of mildly atypical epithelial cells, not diagnostic of malignancy (see comment) 08/24/2024 3:55 PM CDT [facility] at 1555 CDT Comment The atypical cells present in part E are not definitively neoplastic, and may represent reactive pneumocytes or metaplastic epithelium. They are not diagnostic for any particular process. Please correlate with clinical and radiologic findings. 08/24/2024 3:55 PM CDT [facility] Clinical Information 63 year old male with CT demonstrating an enlarging mass-like consolidation in the posterior right lower lobe measuring at least 9.1 x 4.7 cm, abutting the right major fissure and right posterior pleural surface. 08/24/2024 3:55 PM CDT [facility] Gross Description A) Received identified as station 7 subcarinal lymph node, is a fine needle aspirate specimen. The specimen consists of: -6 Air dried slides -1 CytoLyt vial -1 RPMI vial -1 Formalin vial The following were prepared from the specimen submitted: -6 Diff-Quik stained slides -1 Papanicolaou stained ThinPrep slide -1 H&E stained cell block slide A2: Cell block material was removed from the patient and placed directly in formalin at 1535 on 08/19/24 and fixed in formalin at least 6 hours and no more than 72 hours. B) Received identified as station 4R lower paratracheal lymph node, is a fine needle aspirate specimen. The specimen consists of: -5 Air dried slides -1 CytoLyt vial -0 RPMI vials -1 Formalin vial The following were prepared from the specimen submitted: -5 Diff-Quik stained slides -1 Papanicolaou stained ThinPrep slide -1 H&E stained cell block slide B2: Cell block material was removed from the patient and placed directly in formalin at 1555 on 08/19/24 and fixed in formalin at least 6 hours and no more than 72 hours. C) Received identified as station 11R interlobar lymph node, is a fine needle aspirate specimen. The specimen consists of: -7 Air dried slides -1 CytoLyt vial -0 RPMI vials -1 Formalin vial The following were prepared from the specimen submitted: -7 Diff-Quik stained slides -1 Papanicolaou stained ThinPrep slide -1 H&E stained cell block slide C2: Cell block material was removed from the patient and placed directly in formalin at 1615 on 08/19/24 and fixed in formalin at least 6 hours and no more than 72 hours. D) SOURCE: Bronchial Brushing, RLL Lung The specimen consists of a brush in 10 cc of Cytolyt from which the following is prepared: - 1 Papanicolaou stained ThinPrep slide - 1 DiffQuik stained slide - 0 GMS stained ThinPrep slides E) SOURCE: Bronchoalveolar Lavage, RLL Lung The specimen consists of 20 cc of dark peach cloudy fluid from which the following is prepared: -1 DiffQuik stained slide -1 ThinPrep slide for Papanicolaou Stain -0 GMS stained ThinPrep slides 08/24/2024 3:55 PM CDT [facility] Adequacy Assessment A) D.S. assessed adequacy from the air-dried smears at the time of the procedure with an impression of Adequate. B) D.S. assessed adequacy from the air-dried smears at the time of the procedure with an impression of Adequate. C) D.S. assessed adequacy from the air-dried smears at the time of the procedure with an impression of Adequate. D) D.S. assessed adequacy from the air-dried smears at the time of the procedure with an impression of Adequate. 08/24/2024 3:55 PM T [facility] Microscopic Description Specimen adequacy: Adequate for interpretation. All slides were reviewed. The microscopic appearance substantiates the diagnosis. GMS and Seng stains were performed on blocks A2 and B2 and are negative for organisms. 08/24/2024 3:55 PM CDT [facility] Flow Cytometry Summary T & B Cell Screen panel: Interpretation: No monotypic B or T lymphocytes are detected. Clinical indication for flow cytometry: Evaluation of lymphoid phenotype. Percent of Lymphs B cells (CD19+): 46.8% T cells (CD3+): 51.6% NK cells (CD3-/CD56+): 1.5% CD3+/CD4+: 35.6% CD3+/CD8+: 9.2% CD4:CD8 ratio: 3.9 CD19+/Drexel: 17.3% CD19+/Lambda: 17.9% Drexel:Lambda ratio: 1.0 B and T lymphocytes in this analysis demonstrate normal qualitative expression of the following antigens: CD2, CD3, CD4, CD5, CD7, CD8, CD10, CD19, CD20, CD45, CD56, Drexel and Lambda surface light chains, TCR gamma delta, and TRBC1. Quality Assessment Viability (7-AAD): 73% Polytypic B cell events: 3848 Polytypic T cell events: 4164 Nucleated cells analyzed: 80874 Limit of detection (LOD): 0.5% These results and cytograms have been verified by Dr. Corral. This test was developed and its performance characteristics verified by [facility]. It has not been cleared or approved by the [place] Food and Drug Administration. This test is used for clinical purposes and should not be regarded as investigational or for research. Immunostains may have been used on this case in conjunction with flow cytometry in order to address ambiguous or inconclusive findings and/or to provide prognostic information. In the event immunostains were performed, results of both modalities were coordinated with H&E findings during diagnostic evaluation. Analytic Flow Tech: Devi Elizalde, 08/24/2024 1:10 PM Verifying Flow Tech: Eula Rodriges, 08/24/2024 1:33 PM 08/24/2024 3:55 PM CDT [facility] Additional Information Cytology is screened at [facility], Central Laboratory - [address], [place] [address] and [facility] - [address], [place] [address] and [facility] - [address], [place] [address] Interpreted at [facility], Central Laboratory - [address], [place] [address] 08/24/2024 3:55 PM CDT [facility]-C EN[facility]AL [facility]ATORY Aspirate (Level 7 Lymph Node) 08/19/2024 3:14 PM CDT 08/19/2024 4:46 PM CDT Specimen obtained by aspiration (specimen) (Station 4R Lower Paratracheal Lymph Node) 08/19/2024 3:37 PM CDT 08/19/2024 4:46 PM CDT Specimen obtained by aspiration (specimen) (Station 11R Interlobar Lymph Node) 08/19/2024 3:53 PM CDT 08/19/2024 4:46 PM CDT Bronchial brushings specimen (specimen) (Right Lower Lobe Lung Bronchial Brushing) 08/19/2024 4:25 PM CDT 08/19/2024 4:46 PM CDT Bronchoalveolar lavage fluid specimen (specimen) (Right Lower Lobe Lung Bronchoalveolar Lavage) 08/19/2024 4:21 PM CDT 08/19/2024 5:31 PM CDT Edilberto Dial MD PATHOLOGY/CYTOLOGY Natalee narayan Result [facility] [address] [place] [address], [facility] INTERNAL ZIP [address] [address] [place] [address] * HCHG TUBE PR1, HCHG STYLET PR1 (08/19/2024 3:08 PM CDT) Narrative Edilberto Covington CRNA - 08/19/2024 3:08 PM CDT Edilberto Covington CRNA 08/19/2024 3:09 PM Procedure: ETT Patient location during procedure: OR ETT Properties Mask Ventilation: not attempted Final Technique: direct laryngoscopy Type: straight Location: oral Cuffed: yes Tube Size: 8.0 mm Stylet: yes Laryngoscope Blade: Turner Blade Size: 2 Cormack-Lehane Grade View: 1 Insertion Attempts: 1 Placement Verification: auscultation, end tidal CO2 and symmetrical chest wall movement Assessment: pharynx clear, atraumatic and dentition unchanged Secured at: 23 Measured From: lips Difficulty: 0 (not difficult) us Cuco Carrera MD ANESTHESIA PX NOTE ORDERABL ES Final Result * APTT (08/19/2024 2:44 PM CDT) APTT 27 25 - 36 sec 08/19/2024 3:17 PM CDT [facility] Blood BLOOD SPECIMEN / Unknown Butterfly / Unknown 08/19/2024 2:44 PM CDT 08/19/2024 2:51 PM CDT [facility] - 08/19/2024 3:17 PM CDT Therapeutic Range: 59-89 seconds us Edilberto Dial MD HEMATOLOGY Final R esult [facility] INTERNAL ZIP [address] [address] [place] [address] * PROTIME-INR (08/19/2024 2:44 PM CDT) INR 1.1 <1.3 08/19/2024 3:17 PM CDT [facility] PROTIME 12.3 10.6 - 12.4 sec 08/19/2024 3:17 PM CDT [facility] Blood BLOOD SPECIMEN / Unknown Butterfly / Unknown 08/19/2024 2:44 PM CDT 08/19/2024 2:51 PM CDT [facility] - 08/19/2024 3:17 PM CDT Therapeutic Range 2.0-3.0 for most anticoagulated patients [...] seconds if the patient is on UFH. us Edilberto Dial MD HEMATOLOGY Final R esult [facility] INTERNAL ZIP [address] [place] [address] * BRONCHOSCOPY (08/19/2024 2:28 PM CDT) 08/19/2024 2:28 PM CDT Narrative Procedure Note Edilberto Dial MD - 08/19/2024 4:55 PM CDT [facility] Patient Name: Elvin Reardon Procedure Date: 08/19/2024 Gender: Male Date of : 1960 Admit Type: Inpatient Procedure: Bronchoscopy Proceduralist: Edilberto Dial MD Indications/Pre-Op Diagnosis: Right lower lobe mass, Hilar lymphadenopathyof the right side, Mediastinal adenopathy, Paratracheal adenopathy Procedure Description: Informed consent was obtained from the patient with risks andbenefits discussed. The bronchoscope was introduced through the mouth, via theendotracheal tube (the patient was intubated for the procedure) and advanced tothe tracheobronchial tree of both lungs. The bronchoscope was introduced through the mouth, via the endotracheal tube (the patient wasintubated for the procedure) and advanced to the tracheobronchial tree of both lungs. Complications: No immediate complications Estimated Blood Loss & Specimen: Estimated blood loss was minimal. Specimen Collected: Yes and sent to Laboratory Findings: The endotracheal tube is in good position. The visualized portion ofthe trachea is of normal caliber. The abiodun is sharp. Thetracheobronchial tree was examined to at least the first subsegmental level. Bronchial mucosa and anatomy are normal; there are no endobronchial lesions,and only a small amount of thick secretions that were easily aspirated. Lymph Nodes: Lymph node sizing was performed via endobronchial ultrasound for suspected lung cancer. Sampling by transbronchialneedle aspiration was also performed using an [employer] (now [employer]iShot 21 gaugeneedle in the right lower paratracheal region (level 4R), subcarinal mediastinum (level 7) and right superior interlobar region ([id number]) and sent for routine cytology and bacterial, AFB and fungalanalysis. - The 7 (subcarinal) node was 30 mm by EBUS. Eight samples with the needle were obtained. - The 4R (lower paratracheal) node was 20 mm by EBUS. Six sampleswith the needle were obtained. - The 11Rs (superior interlobar) node was 15 mm by EBUS. Eightsamples with the needle were obtained. - Remainder of lymph node examination unrevealing, no lymph nodes at station 11L, 4L or 10R that were greater than 10 mm. No sampling doneat these locations. Brushings of a solid mass were obtained in the right lower lobe witha cytology brush and sent for routine cytology. Two samples wereobtained. Transbronchial brushing technique was selected because the samplingsite was not accessible using standard endoscopic (bronchoscopic)techniques. Transbronchial brushing technique was selected because the samplingsite was not visible endoscopically. The sampling device penetrated thefull thickness of the bronchial wall to obtain the brushings of lungtissue. The bronchoscope was advanced until wedged at the desired locationfor bronchoalveolar lavage. BAL was performed in the RLL lateral basal segment (B9) of the lung and sent for cell count, bacterial culture, viral smears & culture, and fungal & AFB analysis and cytology. 200mL of fluid were instilled. 30 mL were returned. The return was blood-tinged. Mucous plugs were present in the return fluid. Multiple specimens were obtained and pooled into one specimen, which was sentfor analysis. Impression/Post-Op Diagonsis: - Right lower lobe mass - Hilar lymphadenopathy of the right side - Mediastinal adenopathy - Paratracheal adenopathy - The airway examination was normal. - Lymph node sizing and sampling was performed. Tissue was obtainedfrom this exam. The preliminary diagnosis is benign inflammatorychanges. - Brushings were obtained. - Bronchoalveolar lavage was performed. Recommendation: - [facility]. Edilberto Dial MD 08/19/2024 4:55:26 PM This report has been signed electronically. Note Initiated On: 08/19/2024 2:28 PM Edilberto Dial MD PROCEDURE ORD Edited Result - Final * (ABNORMAL) CBC W PLT NO DIFF (08/19/2024 8:50 AM CDT) WHITE BLOOD COUNT 8.3 4.5 - 11.0 thou/cu mm 08/19/2024 9:22 AM [facility] RED BLOOD COUNT 3.54(L) 4.30 - 5.90 mil/cu mm 08/19/2024 9:22 AM [facility] HEMOGLOBIN 10.9(L) 13.5 - 17.5 g/dL 08/19/2024 9:22 AM [facility] HEMATOCRIT 33.2(L) 37.0 - 53.0 % 08/19/2024 9:22 AM [facility] MCV 94 80 - 100 fL 08/19/2024 9:22 AM [facility] MCH 30.8 26.0 - 34.0 pg 08/19/2024 9:22 AM [facility] MCHC 32.8 32.0 - 36.0 g/dL 08/19/2024 9:22 AM [facility] RDW 14.6 11.5 - 15.5 % 08/19/2024 9:22 AM [facility] PLATELET COUNT 263 140 - 440 thou/cu mm 08/19/2024 9:22 AM [facility] MPV 11.0 6.5 - 11.0 fL 08/19/2024 9:22 AM [facility] NRBC 0.0 % 08/19/2024 9:22 AM [facility] ABS NRBC 0.0 thou /cu mm 08/19/2024 9:22 AM [facility] Blood BLOOD SPECIMEN / Unknown Non-Lab Venipuncture / Unknown 08/19/2024 8:50 AM CDT 08/19/2024 9:19 AM CDT us Zaheer Valerio MD HEMATOLOGY Final Result [facility] INTERNAL ZIP [id number] [address] [place] [address] * (ABNORMAL) RENAL FUNCTION PANEL (08/19/2024 8:50 AM CDT) SODIUM 136 136 - 145 mmol/L 08/19/2024 9:51 AM [facility] POTASSIUM 3.9 3.5 - 5.1 mmol/L 08/19/2024 9:51 AM [facility] CHLORIDE 99 98 - 107 mmol/L 08/19/2024 9:51 AM [facility] CO2,TOTAL 23 22 - 29 mmol/L 08/19/2024 9:51 AM [facility] ANION GAP 14 5 - 18 08/19/2024 9:51 AM [facility] GLUCOSE 118(H) 70 - 99 mg/dL 08/19/2024 9:51 AM [facility] CALCIUM 9.3 8.8 - 10.4 mg/dL 08/19/2024 9:51 AM [facility] Comment: Reference ranges for this test were updated on 03/30/2024 to reflect our healthy population more accurately. Reference range changes are not retroactively applied to results, but previous results using the same methodology can be interpreted in the context of the new reference range. BUN 29(H) 8 - 23 mg/dL 08/19/2024 9:51 AM [facility] CREATININE 4.29(H) 0.70 - 1.20 mg/dL 08/19/2024 9:51 AM [facility] BUN/CREAT RATIO 7(L) 10 - 20 9:51 AM [facility] eGFR 15(L) >90 mL/min/1. 73m2 08/19/2024 9:51 AM [facility] Comment:As of 2021, eG FR is calculated by the CKD-EPI creatinine equation without race adjustment. eGFR can be influenced by muscle mass, exercise, and diet. The reported eGFR is an estimation only and is only applicable if the renal function is stable. PHOSPHORUS 3.8 2.5 - 4.5 mg/dL 08/19/2024 9:51 AM [facility] ALBUMIN 3.9(L) 4.0 - 4.9 g/dL 08/19/2024 9:51 AM [facility] Blood BLOOD SPECIMEN / Unknown Non-Lab Venipuncture / Unknown 08/19/2024 8:50 AM CDT 08/19/2024 9:17 AM CDT us Zaheer Valerio MD CHEMISTRY Final Result [facility] INTERNAL ZIP [id number] [address] [place] [address] * (ABNORMAL) COMP METABOLIC PANEL (08/19/2024 8:50 AM CDT) Only the most recent of2 resultswithin the time period is included. SODIUM 136 136 - 145 mmol/L 08/19/2024 9:51 AM [facility] POTASSIUM 3.9 3.5 - 5.1 mmol/L 08/19/2024 9:51 AM [facility] CHLORIDE 99 98 - 107 mmol/L 08/19/2024 9:51 AM [facility] CO2,TOTAL 23 22 - 29 mmol/L 08/19/2024 9:51 AM [facility] ANION GAP 14 5 - 18 08/19/2024 9:51 AM [facility] GLUCOSE 118(H) 70 - 99 mg/dL 08/19/2024 9:51 AM [facility] CALCIUM 9.3 8.8 - 10.4 mg/dL 08/19/2024 9:51 AM [facility] Comment: Reference ranges for this test were updated on 03/30/2024 to reflect our healthy population more accurately. Reference range changes are not retroactively applied to results, but previous results using the same methodology can be interpreted in the context of the new reference range. BUN 29(H) 8 - 23 mg/dL 08/19/2024 9:51 AM [facility] CREATININE 4.29(H) 0.70 - 1.20 mg/dL 08/19/2024 9:51 AM [facility] BUN/CREAT RATIO 7(L) 10 - 20 9:51 AM [facility] eGFR 15(L) >90 mL/min/1. 73m2 08/19/2024 9:51 AM [facility] Comment:As of 2021, eG FR is calculated by the CKD-EPI creatinine equation without race adjustment. eGFR can be influenced by muscle mass, exercise, and diet. The reported eGFR is an estimation only and is only applicable if the renal function is stable. ALBUMIN 3.9(L) 4.0 - 4.9 g/dL 08/19/2024 9:51 AM [facility] PROTEIN,TOTAL 6.8 6.0 - 8.0 g/dL 08/19/2024 9:51 AM [facility] BILIRUBIN,TOTAL 0.3 0.0 - 1.2 mg/dL 08/19/2024 9:51 AM [facility] ALK PHOSPHATASE 163(H) 40 - 129 IU/L 08/19/2024 9:51 AM [facility] ALT (SGPT) 6(L) 10 - 50 IU/L 08/19/2024 9:51 AM [facility] AST (SGOT) 16 10 - 50 IU/L 08/19/2024 9:51 AM [facility] Blood BLOOD SPECIMEN / Unknown Non-Lab Venipuncture / Unknown 08/19/2024 8:50 AM T 08/19/2024 9:17 AM CDT us Brie Morelos MD CHEMISTRY Final R esult [facility] INTERNAL ZIP [phone] [place] [address] * SCAN-CARDIAC STRIP (08/19/2024 12:31 AM CDT) us Scanner OTHER Final Result * HBSAG (HBS) (08/18/2024 10:22 PM CDT) Only the most recent of2 resultswithin the time period is included. HBSAG Nonreactive Nonreactive 08/19/2024 11:56 AM CDT [facility] Blood BLOOD SPECIMEN / Unknown Butterfly / Unknown 08/18/2024 10:22 PM CDT 08/18/2024 10:26 PM CDT us Zaheer Valerio MD SEND OUTS Final Result [facility] [address] [place] [address], [place] * SCAN-CARDIAC STRIP (08/18/2024 9:58 PM CDT) us Scanner OTHER Final Result * SCAN-CARDIAC STRIP (08/18/2024 8:22 AM CDT) us Scanner OTHER Final Result * WHITE BLOOD COUNT (08/18/2024 5:23 AM CDT) Only the most recent of2 resultswithin the time period is included. WHITE BLOOD COUNT 10.3 4.5 - 11.0 thou/cu mm 08/18/2024 5:44 AM CDT [facility] NRBC 0.0 % 08/18/2024 5:44 AM CDT [facility] ABS NRBC 0.0 thou /cu mm 08/18/2024 5:44 AM CDT [facility] Blood BLOOD SPECIMEN / Unknown Butterfly / Unknown 08/18/2024 5:23 AM CDT 08/18/2024 5:42 AM CDT us Brie Morelos MD HEMATOLOGY Final R esult [facility] INTERNAL ZIP [id number] [address] [place] [address] * (ABNORMAL) BASIC METABOLIC PANEL (08/18/2024 5:23 AM CDT) SODIUM 132(L) 136 - 145 mmol/L 08/18/2024 6:04 AM T [facility] POTASSIUM 5.4(H) 3.5 - 5.1 mmol/L 08/18/2024 6:04 AM [facility] CHLORIDE 99 98 - 107 mmol/L 08/18/2024 6:04 AM [facility] CO2,TOTAL 14(L) 22 - 29 mmol/L 08/18/2024 6:04 AM [facility] ANION GAP 19(H) 5 - 18 08/18/2024 6:04 AM [facility] GLUCOSE 101(H) 70 - 99 mg/dL 08/18/2024 6:04 AM [facility] CALCIUM 9.0 8.8 - 10.4 mg/dL 08/18/2024 6:04 AM [facility] Comment: Reference ranges for this test were updated on 03/30/2024 to reflect our healthy population more accurately. Reference range changes are not retroactively applied to results, but previous results using the same methodology can be interpreted in the context of the new reference range. BUN 46(H) 8 - 23 mg/dL 08/18/2024 6:04 AM [facility] CREATININE 5.73(H) 0.70 - 1.20 mg/dL 08/18/2024 6:04 AM [facility] BUN/CREAT RATIO 8(L) 10 - 20 6:04 AM [facility] eGFR 10(L) >90 mL/min/1. 73m2 08/18/2024 6:04 AM CDT [facility] Comment:As of 2021, eG FR is calculated by the CKD-EPI creatinine equation without race adjustment. eGFR can be influenced by muscle mass, exercise, and diet. The reported eGFR is an estimation only and is only applicable if the renal function is stable. Blood BLOOD SPECIMEN / Unknown Butterfly / Unknown 08/18/2024 5:23 AM CDT 08/18/2024 5:42 AM CDT us Zaheer Valerio MD CHEMISTRY Final Result [facility] INTERNAL ZIP [address] [address] [place] [address] * SCAN-CARDIAC STRIP (08/18/2024 12:45 AM CDT) us Scanner OTHER Final Result * (ABNORMAL) TROPONIN T (HS) ONE TIME (08/18/2024 12:34 AM CDT) TROPONIN T HS 90(H) 6-15 ng/L ng/L 08/18/2024 12:57 AM CDT [facility] Blood BLOOD SPECIMEN / Unknown Capillary / Unknown 08/18/2024 12:34 AM CDT 08/18/2024 12:37 AM CDT us Milagros Dan MD CHEMISTRY Final Result [facility] INTERNAL ZIP [address] [place] [id number] * LACTATE VENOUS (08/18/2024 12:34 AM CDT) Only the most recent of2 resultswithin the time period is included. LACTATE,VENOUS 1.2 0.5 - 2.0 mmol/L 08/18/2024 12:59 AM CDT [facility] Blood BLOOD SPECIMEN / Unknown Capillary / Unknown 08/18/2024 12:34 AM CDT 08/18/2024 12:37 AM CDT Milagros Dan MD CHEMISTRY Final Result [facility] INTERNAL ZIP [address] [address] [place] [address] * EKG 12 LEAD (08/18/2024 12:22 AM CDT) Pathologist [facility] Interpretation Sinus tachycardia Possible Left atrial enlargement Left ventricular hypertrophy Nonspecific ST abnormality Abnormal ECG When compared with ECG of 06-May-2024 22:20, T wave inversion no longer evident in Inferior leads T wave inversion no longer evident in Anterolateral leads BEYOND NOW Ventricular Rate 122 BPM BEYOND NOW Atrial Rate 122 BPM BEYOND NOW P-R Interval 156 ms BEYOND NOW QRS Duration 88 ms BEYOND NOW QT 318 ms BEYOND NOW QTc 453 ms BEYOND NOW P [place] 56 degrees BEYOND NOW R [place] 52 degrees BEYOND NOW T [place] 76 degrees BEYOND NOW 08/18/2024 12:2 2 AM CDT 08/19/2024 10:21 AM CDT Milagros Dan MD EKG ORD Final Result [facility] [place], [place] * (ABNORMAL) TROPONIN T (HS) ACUTE W/2HR REFLEX (08/17/2024 10:27 PM CDT) Pathologist [facility] TROPONIN T HS 80(H) 6-15 ng/L ng/L 08/17/2024 11:02 PM CDT [facility] Blood BLOOD SPECIMEN / Unknown Venipuncture / Unknown 08/17/2024 10:27 PM CDT 08/17/2024 10:31 PM CDT Narrative [facility] - 08/17/2024 11:02 PM CDT hs-cTnT (Elecsys Troponin T Gen 5) concentration [...] low risk in emergency department patient population. Milagros Dan MD CHEMISTRY Final Result [facility] INTERNAL ZIP [address] [place] [address] * (ABNORMAL) CBC WITH AUTO DIFFERENTIAL (08/17/2024 10:27 PM CDT) [facility] WHITE BLOOD COUNT 13.2(H) 4.5 - 11.0 thou/cu mm 08/17/2024 10:36 PM CDT [facility] RED BLOOD COUNT 3.96(L) 4.30 - 5.90 mil/cu mm 08/17/2024 10:36 PM CDT [facility] HEMOGLOBIN 12.4(L) 13.5 - 17.5 g/dL 08/17/2024 10:36 PM T [facility] HEMATOCRIT 38.5 37.0 - 53.0 % 08/17/2024 10:36 PM [facility] MCV 97 80 - 100 fL 08/17/2024 10:36 PM [facility] MCH 31.3 26.0 - 34.0 pg 08/17/2024 10:36 PM [facility] MCHC 32.2 32.0 - 36.0 g/dL 08/17/2024 10:36 PM [facility] RDW 14.5 11.5 - 15.5 % 08/17/2024 10:36 PM [facility] PLATELET COUNT 302 140 - 440 thou/cu mm 08/17/2024 10:36 PM [facility] MPV 10.9 6.5 - 11.0 fL 08/17/2024 10:36 PM [facility] NRBC 0.0 % 08/17/2024 10:36 PM [facility] ABS NRBC 0.0 thou /cu mm 08/17/2024 10:36 PM [facility] % NEUT 58.6 % 08/17/2024 10:36 PM [facility] % LYMPH 26.5 % 08/17/2024 10:36 PM [facility] % MONO 5.2 % 08/17/2024 10:36 PM [facility] % EOS 8.4 % 08/17/2024 10:36 PM [facility] % BASO 0.5 % 08/17/2024 10:36 PM [facility] % IMMATURE GRAN (METAS,MYELOS,TX OS) 0.8 % 08/17/2024 10:36 PM [facility] ABSOLUTE NEUTROPHILS 7.8(H) 1.7 - 7.0 thou/cu mm 08/17/2024 10:36 PM [facility] ABSOLUTE LYMPHOCYTES 3.5(H) 0.9 - 2.9 thou/cu mm 08/17/2024 10:36 PM CDT [facility] ABSOLUTE MONOCYTES 0.7 <0.9 thou/cu mm 08/17/2024 10:36 PM CDT [facility] ABSOLUTE EOSINOPHILS 1.1(H) <0.5 thou/cu mm 08/17/2024 10:36 PM CDT [facility] ABSOLUTE BASOPHILS 0.1 <0.3 thou/cu mm 08/17/2024 10:36 PM CDT [facility] ABSOLUTE IMMATURE GRANULOCYTES(MET ,MYELOS,PROS) 0.1 <0.3 thou/cu mm 08/17/2024 10:36 PM CDT [facility] Blood BLOOD SPECIMEN / Unknown Venipuncture / Unknown 08/17/2024 10:27 PM CDT 08/17/2024 10:33 PM CDT Milagros Dan MD HEMATOLOGY Final Result [facility] INTERNAL ZIP [address] [place] [address] * (ABNORMAL) BLOOD GAS,VENOUS (08/17/2024 10:27 PM CDT) PH, VENOUS 7.25(L) 7.32 - 7.43 08/17/2024 10:40 PM CDT [facility] PCO2, VENOUS 39(L) 41 - 51 mmHg 08/17/2024 10:40 PM CDT [facility] PO2, VENOUS 137(H) 35 - 40 mmHg 08/17/2024 10:40 PM CDT [facility] HCO3,VENOUS 17(L) 22 - 29 mmol/L 08/17/2024 10:40 PM CDT [facility] BASE EXCESS, VENOUS, POCT -9.5(L) -2.0 - 3.0 08/17/2024 10:40 PM CDT [facility] O2 SATURATION, VENOUS 100(H) 70 - 75 % 08/17/2024 10:40 PM CDT [facility] PATIENT TEMPERATURE 37.0 Degrees C 08/17/2024 10:40 PM CDT [facility] Blood VENOUS BLOOD SPECIMEN / Unknown Venipuncture / Unknown 08/17/2024 10:27 PM CDT 08/17/2024 10:33 PM CDT Milagros Dan MD CHEMISTRY Final Result [facility] INTERNAL ZIP [address] [address] [place] [address] * (ABNORMAL) PRO-BNP (08/17/2024 10:27 PM CDT) PRO-BNP >70,000(H) <125 pg/mL 08/17/2024 11:25 PM CDT [facility] Blood BLOOD SPECIMEN / Unknown Venipuncture / Unknown 08/17/2024 10:27 PM CDT 08/17/2024 10:31 PM CDT Narrative [facility] - 08/17/2024 11:25 PM CDT The following cut-points have been suggested for [...] of 72% for acute congestive heart failure. Milagros Dan MD SEND OUTS Final Result [facility] INTERNAL ZIP [address] [address] [place] [address] * CT CHEST W (08/17/2024 2:02 PM CDT) Anatomical Region Laterality Modality CHEST, THORAX, HEART Computed To mography 08/17/2024 2:02 PM CDT Impressions 08/17/2024 2:20 PM CDT 1. Enlarging consolidation in the right lower lobe concerning for malignancy with suspected right mediastinal and hilar lymph node metastasis. PET/CT or tissue sampling recommended. Suggest pulmonary consultation. 2. New trace bilateral pleural fluid. 3. Moderate emphysema. 4. Stable left adrenal adenoma. 5. Findings of chronic pancreatitis. Cystic pancreatic masses indeterminate and may related to pancreatitis or likely side branch IPMNs. Follow-up guideline below. Suggested follow-up: Right lung mass and pancreatic cysts PET Scan < 1 Month, MR Abdomen 1-3 Months REFERENCE: Revisions of international consensus [place] guidelines for the management of IPMN of the pancreas. Pancreatology 2017;17(5):738-753. Largest cyst between 20-30 mm: EUS in 3-6 months and then annual surveillance alternating between MRI and EUS as appropriate. Narrative 08/17/2024 2:20 PM CDT For Patients: As a result of the Century Cures Act, medical imaging exams and procedure reports are released immediately into your electronic medical record. You may view this report before your referring provider. If you have questions, please contact your health care provider. EXAM: CT CHEST W LOCATION: [facility] DATE: 08/17/2024 INDICATION: Pneumonia, complication suspected, xray done COMPARISON: Chest radiograph 08/17/2024, chest CT 05/24/2024 and 05/11/2024 TECHNIQUE: CT chest with IV contrast. Multiplanar reformats were obtained. Dose reduction techniques were used. CONTRAST: None. FINDINGS: LUNGS AND PLEURA: Masslike consolidation in the posterior right lower lobe concerning for malignancy is larger since 05/24/2024, measures at least 9.1 x 4.7 cm on this exam versus 6.7 x 3.8 cm previously. This abuts the right major fissure and right posterior pleural surface. Moderate emphysema. No new infiltrate. New trace bilateral pleural fluid. MEDIASTINUM/AXILLAE: Increase right paratracheal and subcarinal lymphadenopathy. For example, right paratracheal lymph node measures 1.6 cm on this exam versus 1.3 cm previously. Borderline enlarged right hilar lymph nodes also larger. Normal caliber thoracic aorta. Right IJ central line tip in the low SVC.. CORONARY ARTERY CALCIFICATION: Severe. UPPER ABDOMEN: Cholecystectomy. Stable 2.5 x 2.3 cm left adrenal nodule consistent with adenoma based on previous low density on noncontrast CT. Diffuse dilatation of main pancreatic duct measures up to 7 mm and calcification near the ampulla suggesting chronic pancreatitis. Cystic masses of pancreas largest in the pancreatic neck measuring 2.5 x 2.2 cm not significantly changed since April 2024. MUSCULOSKELETAL: Old bilateral rib fractures. Procedure Note Ira Pina MD - 08/17/2024 For Patients: As a result of the Cures Act, medical imagingexams and procedure reports are released immediately into your electronicmedical record. You may view this report before your referring provider.If you have questions, please contact your health care provider. EXAM: CT CHEST W LOCATION: [facility] DATE: 08/17/2024 INDICATION: Pneumonia, complication suspected, xray done COMPARISON: Chest radiograph 08/17/2024, chest CT 05/24/2024 and05/11/2024 TECHNIQUE: CT chest with IV contrast. Multiplanar reformats were obtained.Dose reduction techniques were used. CONTRAST: None. FINDINGS: LUNGS AND PLEURA: Masslike consolidation in the posterior right lower lobeconcerning for malignancy is larger since 05/24/2024, measures at least9.1 x 4.7 cm on this exam versus 6.7 x 3.8 cm previously. This abuts theright major fissure and right posterior pleural surface. Moderateemphysema. No new infiltrate. New trace bilateral pleural fluid. MEDIASTINUM/AXILLAE: Increase right paratracheal and subcarinallymphadenopathy. For example, right paratracheal lymph node measures 1.6cm on this exam versus 1.3 cm previously. Borderline enlarged right hilarlymph nodes also larger. Normal caliber thoracic aorta. Right IJ centralline tip in the low SVC.. CORONARY ARTERY CALCIFICATION: Severe. UPPER ABDOMEN: Cholecystectomy. Stable 2.5 x 2.3 cm left adrenal noduleconsistent with adenoma based on previous low density on noncontrast CT.Diffuse dilatation of main pancreatic duct measures up to 7 mm andcalcification near the ampulla suggesting chronic pancreatitis. Cysticmasses of pancreas largest in the pancreatic neck measuring 2.5 x 2.2 cmnot significantly changed since April 2024. MUSCULOSKELETAL: Old bilateral rib fractures. IMPRESSION: 1. Enlarging consolidation in the right lower lobe concerning formalignancy with suspected right mediastinal and hilar lymph nodemetastasis. PET/CT or tissue sampling recommended. Suggest pulmonaryconsultation. 2. New trace bilateral pleural fluid. 3. Moderate emphysema. 4. Stable left adrenal adenoma. 5. Findings of chronic pancreatitis. Cystic pancreatic massesindeterminate and may related to pancreatitis or likely side branch IPMNs.Follow-up guideline below. Suggested follow-up: Right lung mass and pancreatic cysts PET Scan < 1 Month, MR Abdomen 1-3 Months REFERENCE: Revisions of international consensus [place] guidelines for the managementof IPMN of the pancreas. Pancreatology 2017;17(5):738-753. Largest cyst between 20-30 mm: EUS in 3-6 months and then annualsurveillance alternating between MRI and EUS as appropriate. us Brie Morelos MD CT Final R esult * (ABNORMAL) ISTAT EG6+ ABG (08/17/2024 12:46 PM CDT) PH, ARTERIAL 7.41 7.35 - 7.45 08/17/2024 12:47 PM CDT [facility] PCO2, ARTERIAL 47 35 - 48 mmHg 08/17/2024 12:47 PM CDT [facility] PO2, ARTERIAL 85 83 - 108 mmHg 08/17/2024 12:47 PM CDT [facility] HCO3, ARTERIAL 30(H) 21 - 28 mmol/L 08/17/2024 12:47 PM CDT [facility] BASE EXCESS, ARTERIAL 5.0(H) -2.0 - 3.0 08/17/2024 12:47 PM CDT [facility] O2 SATURATION, ARTERIAL 96 94 - 98 % 08/17/2024 12:47 PM CDT [facility] SODIUM, POCT 08/17/2024 12:47 PM CDT [facility] Comment:Unable to determine. POTASSIUM, POCT 12:47 PM CDT [facility] Comment:Unable to determine. INSPIRED O2,ISTAT 3.0 08/17/2024 12:47 PM CDT [facility] PATIENT TEMPERATURE 37.0 Degrees C 08/17/2024 12:47 PM CDT [facility] MELINDA'S TEST Not Given 08/17/2024 12:47 PM CDT [facility] SAMPLE TYPE,ISTAT BLOOD GAS ARTERIAL 08/17/2024 12:47 PM CDT [facility] Blood BLOOD SPECIMEN / Unknown 08/17/2024 12:46 PM CDT 08/17/2024 12:47 PM CDT us Brie Morelos MD CHEMISTRY Final R esult [facility] INTERNAL ZIP [phone] [place] [address] * LEGIONELLA AND PNEUMOCOCCAL URINE ANTIGEN (08/17/2024 12:25 PM CDT) STREP PNEUMO ANTIGEN Negative 08/17/2024 4:56 PM CDT [facility] Comment:Presumptive negative for pneumococcal pneumonia, suggesting no current or recent pneumococcal infection. Infection due to S. pneumoniae cannot be ruled out since the antigen present in the sample may be below the detection limit of the test. LEGIONELLA ANTIGEN Negative 08/17/2024 4:56 PM CDT [facility] Comment:Negative for L.pneum ophila serogroup 1 antigen, suggesting no recent or current infection. Infection due to Legionella cannot be ruled out since other serogroups and species may cause disease, antigen may not be present in urine in early infection, and the level of antigen present may be below the detection limit of the test. Low test sensitivity in patients with mild pneumonia. Urine URINE SPECIMEN / Unknown Non-Blood / Unknown 08/17/2024 12:25 PM CDT 08/17/2024 12:27 PM CDT us Brie Morelos MD MICROBIOLOGY Final R esult [facility] [address] [place] [address], [place] * XR CHEST 2 VIEWS PA AND LATERAL (08/17/2024 11:15 AM CDT) Anatomical Region Laterality Modality CHEST, THORAX, Lung, HEART Digit al Radiography 08/17/2024 11:1 5 AM CDT Impressions 08/17/2024 12:19 PM CDT Airspace opacity in the posterior right lower lobe. This is very similar to that seen on 05/24/2024, increased from 05/07/2024. The right upper lung is clear. The left lung appears clear. Heart size upper limits of normal. Normal pulmonary vascularity. No interstitial infiltrate or significant pleural effusion. Dual-lumen dialysis catheter in place, right IJ approach, with standard positioning. Bones are demineralized. No acute osseous abnormality. Surgical clips in the right upper abdomen. Heavy splenic calcification in the abdominal aorta. Given the presence of airspace opacity that is very similar to 05/24/2024, further evaluation is necessary. Differential diagnostic considerations include recurrence lobar pneumonia at the site of a previous pneumonia, persistent, untreated pneumonia, loculated pleural fluid, or an infiltrative/neoplastic lung process. Recommend contrast enhanced CT for further characterization. Clinical correlation is recommended with signs or symptoms of infection/pneumonia. Tissue diagnosis may ultimately be necessary to exclude underlying malignancy. PHYSICIAN ALERT Narrative 08/17/2024 12:19 PM CDT For Patients: As a result of the 21st Century Cures Act, medical imaging exams and procedure reports are released immediately into your electronic medical record. You may view this report before your referring provider. If you have questions, please contact your health care provider. EXAM: XR CHEST 2 VIEWS PA AND LATERAL LOCATION: [facility] DATE: 08/17/2024 INDICATION: Dyspnea. COMPARISON: CT 05/24/2024, radiographs 05/07/2024, 04/26/2024. Procedure Note Aryan Roy MD - 08/17/2024 For Patients: As a result of the Cures Act, medical imagingexams and procedure reports are released immediately into your electronicmedical record. You may view this report before your referring provider.If you have questions, please contact your health care provider. EXAM: XR CHEST 2 VIEWS PA AND LATERAL LOCATION: [facility] DATE: 08/17/2024 INDICATION: Dyspnea. COMPARISON: CT 05/24/2024, radiographs 05/07/2024, 04/26/2024. IMPRESSION: Airspace opacity in the posterior right lower lobe. This is very similarto that seen on 05/24/2024, increased from 05/07/2024. The right upperlung is clear. The left lung appears clear. Heart size upper limits ofnormal. Normal pulmonary vascularity. No interstitial infiltrate orsignificant pleural effusion. Dual-lumen dialysis catheter in place, rightIJ approach, with standard positioning. Bones are demineralized. No acuteosseous abnormality. Surgical clips in the right upper abdomen. Heavysplenic calcification in the abdominal aorta. Given the presence of airspace opacity that is very similar to 05/24/2024,further evaluation is necessary. Differential diagnostic considerationsinclude recurrence lobar pneumonia at the site of a previous pneumonia,persistent, untreated pneumonia, loculated pleural fluid, or aninfiltrative/neoplastic lung process. Recommend contrast enhanced CT forfurther characterization. Clinical correlation is recommended with signsor symptoms of infection/pneumonia. Tissue diagnosis may ultimately benecessary to exclude underlying malignancy. PHYSICIAN ALERT us Zaheer Valerio MD GENERAL IMAGING Final Result * SCAN CORRESP-IMAGING (08/17/2024 8:42 AM CDT) Only the most recent of2 resultswithin the time period is included. Anatomical Region Laterality Modality Other Narrative 08/17/2024 8:42 AM CDT Ordered by an unspecified provider. us Other Clinical Staff OTHER Final Resul t * SCAN-CARDIAC STRIP (08/17/2024 12:00 AM CDT) Narrative 08/17/2024 12:00 AM CDT Ordered by an unspecified provider. us Other Clinical Staff OTHER Final Resul t * SCAN CORRESP-EKG RESULTS (06/28/2024 2:48 PM SPECIAL CLASS WELDER) Narrative 06/28/2024 2:48 PM SPECIAL CLASS WELDER Ordered by an unspecified provider. us Other Clinical Staff OTHER Final Resul t * SCAN-CARDIAC STRIP (06/26/2024 7:56 AM SPECIAL CLASS WELDER) us Scanner OTHER Final Result * PLATELET COUNT (06/26/2024 7:16 AM SPECIAL CLASS WELDER) PLATELET COUNT 265 140 - 440 thou/cu mm 06/26/2024 7:[address] [facility] MPV 10.3 6.5 - 11.0 fL 06/26/2024 7:[address] [facility] Blood BLOOD SPECIMEN / Unknown Venipuncture / Unknown 06/26/2024 7:16 AM SPECIAL CLASS WELDER 06/26/2024 7:34 AM SPECIAL CLASS WELDER Arun Martinez MD HEMATOLOGY Final Res ult Performing Organization Address City/[facility]/ZIP Co de Phone Number [facility] SENDOUT INTERNAL ZIP [phone] [place] [id number] * (ABNORMAL) SODIUM (06/26/2024 7:16 AM SPECIAL CLASS WELDER) SODIUM 135(L) 136 - 145 mmol/L 06/26/2024 8:[address] [facility] Blood BLOOD SPECIMEN / Unknown Venipuncture / Unknown 06/26/2024 7:16 AM SPECIAL CLASS WELDER 06/26/2024 7:34 AM SPECIAL CLASS WELDER Result [facility] Arun Martinez MD CHEMISTRY Final Res ult Performing Organization Address [facility]/ZIP Co de Phone Number [facility] SENDOUT INTERNAL ZIP [phone] [place] [id number] * SCAN-CARDIAC STRIP (06/25/2024 8:41 PM SPECIAL CLASS WELDER) us Scanner OTHER Final Result * (ABNORMAL) ANTI HCV (04/28/2024 5:01 AM SPECIAL CLASS WELDER) HEPATITIS C ANTIBODY Reactive, Preliminary Positive(A) Non-React odette 04/28/2024 9:46 AM SPECIAL CLASS WELDER [facility] Comment:Presumptive evidence of antibodies to HCV. Reflexed to HCV RNA Quant (See separate report). Blood BLOOD SPECIMEN / Unknown Venipuncture / Unknown 04/28/2024 5:01 AM SPECIAL CLASS WELDER 04/28/2024 5:17 AM SPECIAL CLASS WELDER us Zaheer Valerio MD SEND OUTS Final Result [facility] [address] [place] [id number], from Last 3 Months or Most Recently Relevant to Health Maintenance Insurance [facility] Advance Directives * Full Code (Latest Code Status on File) Date Activated Date Inactivated Comments 08/17/2024 3:42 AM 08/24/2024 2:03 PM Question Answer Comments Code Status Discussion: Reviewed Preferences * Full Code Date Activated Date Inactivated Comments 06/25/2024 7:45 [...] Code Status Discussion: Reviewed Preferences Care Teams Professional Benefits Sales Consultant Relationship Specialty Start Date End Date Shelia Diet[place] [address] PCP - General Family Practice 06/18/23 Pcp, No . 05/18/23 Merari Jenkins, RN [address] [place] [id number] Nurse Navigator - Oncology Registered Nurse 08/27/24
--- NOTE | 2024-09-05 05:55 | CRLHL7_ITS ---
For Patients: As a result of the Century Cures Act, medical imaging exams and procedure reports are released immediately into your electronic medical record. You may view this report before your referring provider. If you have questions, please contact your health care provider. INDICATION: Dyspnea and pulmonary edema COMPARISON: 08/16/2024 TECHNIQUE: 1 view chest radiograph. FINDINGS: Devices: Dual lumen right IJ central line distal tip superior cavoatrial junction. Lung volumes are good. Focal opacity along the inferomedial chest is similar to the most recent prior exam and may be loculated posterior effusion, not well evaluated without a lateral. Moderate to severe pulmonary edema. No pleural effusion. No pneumothorax. No pneumomediastinum. Heart size is large but unchanged. Atherosclerosis. Upper mediastinal contours are normal. Bones: No acute findings. IMPRESSION: 1. Moderate to severe pulmonary edema. 2. Suspect persistent loculated effusion versus other opacity in the dependent right hemithorax. Not well evaluated without a lateral view. Dictated by Pricilla Velásquez MD @ 09/05/2024 6:14:16 AM (Electronically Signed)
[2024-09-05 05:59] LABS: HCO3 VBG 15 mmol/L (21-28); PCO2 VBG 48 mmHG (40-50); PO2 VBG 64.8 mmHG (25-47)
[2024-09-05 06:00] LABS: Basophils Percent Auto 0.6 % (0.0-3.0); Eosinophils Percent Auto 5.2 % (0.0-7.0); Hematocrit 42.1 % (37.0-53.0); Hemoglobin* 12.6 gm/dL (13.5-17.5); Immature Granulocytes Pct Auto 0.5 %; Lymphocytes Percent Auto 42.7 % (20-44); Mean Corpuscular HGB Conc 30 gm/dL (32-36); Mean Corpuscular Hemoglobin 31 pg (26-34); Mean Corpuscular Volume 105 fL (80-100); Monocytes Percent Auto 8.4 % (0.0-11.0); Neutrophils Percent Auto 42.6 % (42.0-72.0); Platelet Count* 289 K/uL (140-440); RDW Coefficient of Variation % 15.4 % (11.5-15.5); Red Blood Count 4.03 m/uL (4.30-5.90); White Blood Count* 19.16 K/uL (4.50-11.00)
[2024-09-05 06:01] LABS: pH VBG 7.097 (7.32-7.43)
[2024-09-05 06:02] LABS: Lactate* 3.9 mmol/L (0.5-1.9)
[2024-09-05 06:03] LABS: Slide Review Reflex Yes
[2024-09-05] MEDS: FUROSEMIDE 10 MG/ML inj 80 MG IM (06:04)
[2024-09-05] MEDS: IPRAT-ALBUT 0.5-2.5 MG/3 ML NEB 1 NEB IH (06:04)
[2024-09-05] MEDS: METHYLPREDNISOLONE SOD SUCC 40 MG/ML 60 MG IVP (06:04)
[2024-09-05] MEDS: ALBUTEROL SULFATE 2.5 MG/3 ML VIAL.NEB NEB (06:05)
[2024-09-05 06:18] LABS: Chloride* 107 mmol/L (96-114); Sodium* 141 mmol/L (135-149)
[2024-09-05 06:19] LABS: Potassium* 5.9 mmol/L (3.6-5.1)
[2024-09-05] MEDS: ETOMIDATE 2 MG/ML inj 18 MG IVP (06:21)
[2024-09-05 06:22] LABS: Anion Gap 18 mEq/L (7-15); Blood Urea Nitrogen* 70 mg/dL (7-30); Calcium* 8.9 mg/dL (8.4-10.6); Carbon Dioxide* 16 mmol/L (20-32); Creatinine* 7.1 mg/dL (0.5-1.5); Estimated Glomerular Filt Rate 8 ml/min; Glucose* 225 mg/dL (60-115)
[2024-09-05] MEDS: SUCCINYLCHOLINE 20 MG/ML INJ 100 MG IVP (06:22)
[2024-09-05] MEDS: KETAMINE HCL 100 MG/ML inj 120 MG IVP ×2 (06:25→06:44)
[2024-09-05 06:32] LABS: Slide Review Acceptable Review (Acceptable)
--- OUTSIDE RECORDS SUMMARY | 2024-09-05 06:41 | XMS_ITS | Clinical Summary ---
Author Organization [facility] Address [address] [place] [address] Care Team Providers Care Sas Architect Name Role Phone Unavailable Primary Care Provider Unavailabl e Source Comments Patient records contain information from all sites at [facility]. For routine questions regarding patient records, call [phone] during business hours, M-F 8:00 AM - 5:00 PM Central Time. Record requests for emergency care only can be directed to [phone] at any time.[facility] Allergies Active Allergy Reactions Criticality Noted [...] Only Division of Nephrology and Hypertension in [place], [place] [address] [place] [address] Claudio Jain Jr., D.OChristiane 07/23/2024 Orders Only Division of Nephrology and Hypertension, [facility], in [place], [place] [address] [place] [address] Danae Zelaya APRN, C.N.P., M.S.N. 07/21/2024 Orders Only Division of Nephrology and Hypertension, [facility], in [place], [place] [address] [place] [address] Danae Zelaya APRN C.N.P., M.S.N. Epididymitis Acute [...] M.S.N. LAB BLOOD A DD-ON Final Result [facility] [address] [place] [address], [facility] [address] [place] [address] * (ABNORMAL) Lipid Panel (03/15/2023 5:56 AM [...] P.A.-C. LAB BLOOD ADD-ON Final Resu lt [facility] [address] [place] [address], [facility] [address] [place] [address] * HIV-1/-2 Ag and Ab Screen, Plasma (03/14/2023 6:31 PM CDT) [facility] HIV-1/-2 Ag and Ab Screen, P Negative Negative 03/14/2023 9:01 PM CDT [facility] Comment: Negative result does not rule out HIV infection. If exposure to HIV infection occurred <14 days ago, contact the laboratory to request addition of HIV-1/HIV-2 RNA detection, Plasma (HIP12). Blood (Blood, Venous) 03/14/2023 6:31 PM CDT 03/14/2023 8:20 PM CDT us Clai B Catto P.A.-C. LAB MICROBIOLOGY - BLOOD OR DERABLES Final Result [facility] [address] [place] [address] [facility] [address] [place] [address] * (ABNORMAL) HCV Ab Scrn w/Reflex to HCV PCR, Serum (03/14/2023 6:31 PM CDT) HCV Ab Screen, S Reactive(A ) Negative 03/14/2023 11:27 PM CDT [facility] Comment: Supplemental testing for HCV RNA is ordered to rule out active HCV infection. Zdhkxw-py-nxmmhq ratio is >=1.00 and <8.00. Blood (Blood, Venous) 03/14/2023 6:31 PM CDT 03/14/2023 8:21 PM CDT Clai B Catto P.A.-C. LAB MICROBIOLOGY - BLOOD OR DERABLES Final Result [facility] [address] [place] [address] [facility] [address] [place] [address] * Hepatitis B Surface Antigen (03/14/2023 6:31 PM CDT) HBs Antigen, S Negative Negative 03/14/2023 11:09 PM CDT [facility] Blood (Blood, Venous) 03/14/2023 6:31 PM CDT 03/14/2023 8:21 PM CDT Clai B Catto P.A.-C. LAB MICROBIOLOGY - BLOOD OR DERABLES Final Result [facility] [address] [place] [address] [facility] [address] [place] [address] from Last 3 Months or Most Recently Relevant to Health Maintenance Insurance [facility] Advance Directives For more information, please contact: [phone] * Full Code (Latest Code Status on File) Date Activated Date Inactivated Comments 03/13/2023 4:37 AM 03/19/2023 5:51 PM Question Answer Comments Full Code: Not Discussed Due to: Patient not available
--- OUTSIDE RECORDS SUMMARY | 2024-09-05 06:41 | XMS_ITS | Encounter Summary ---
Author Organization [facility] Address [address] [place] [address] Care Team Providers Care Radiology Transcriptionist Name Role Phone Unavailable Primary Care Provider Unavailabl e Encounter Details Date Type Department Care Team (Late st Contact Info) Description 08/09/2024 Orders Only Division of Nephrology and Hypertension in [place], [place] [address] [place] [address] Claudio Jain Jr., D.O. [address] [place] [address] Social History Tobacco Use Types Packs/Day Years [...]
--- OUTSIDE RECORDS SUMMARY | 2024-09-05 06:41 | XMS_ITS | Encounter Summary ---
Author Organization [facility] Address [address] [place] [address] Care Team Providers Care Tool Smith Name Role Phone Unavailable Primary Care Provider Unavailabl e Encounter Details Date Type Department Care Team (Late st Contact Info) Description 07/23/2024 Orders Only Division of Nephrology and Hypertension, [facility], in [place], [place] [address] [place] [address] Danae Zelaya, FLAVIO, C.N.P., M.S.N. [address] [place] [address] Social History Tobacco Use Types Packs/Day Years [...]
--- OUTSIDE RECORDS SUMMARY | 2024-09-05 06:42 | XMS_ITS | Encounter Summary ---
Author Organization [facility] Address [address] [place] [address] Care Team Providers Care Lead Ruby On Rails Developer Name Role Phone Unavailable Primary Care Provider Unavailabl e Encounter Details Date Type Department Care Team (Late st Contact Info) Description 07/21/2024 Orders Only Division of Nephrology and Hypertension, [facility], in [place], [place] [address] [place] [phone] Danae Zelaya, FLAVIO, C.N.P., M.S.N. [address] [place] [address] Epididymitis Acute (Primary Dx) Social History Tobacco [...]
--- OUTSIDE RECORDS SUMMARY | 2024-09-05 06:42 | XMS_ITS | CONTINUITY OF CARE DOCUMENT ---
Author Name User, QIE Address [address] [place] [address] Organization [facility] Address [address] [place] [address] [address] [place] [address] Phone [phone] Care Team Providers Care Sales Advisory Manager Name Role Phone User, QIE Unavailable Unavailable PROBLEMS Condition Status Date Provider Notes Organizati on CKD STAGE ESRD ON DIALYSIS GFR <15 active Trisha Barone , [address] [place] [address] [address] [place] [address] [facility] VITAL SIGNS Date Observation Value Provider Organization blood pressure, diastolic 81 mm[Hg] Lenora Colon RN RN, [address] [place] [address] [address] [facility] [place] blood pressure, systolic 121 mm[Hg] Lenora Colon RN RN, [address] [place] [address] [address] [facility] [place] blood pressure, site #1 Upper arm Lenora Colon RN RN, [address] [place] [address] [address] [facility] [place] pulse rate 70 /min Lenora Colon RN RN, [address] [place] [address] [address] [facility] [place] Body Mass Index (Ratio) 18.46 kg/m2 Lenora Colon RN RN, [address] [place] [address] [address] [facility] [place] weight E&M 121 [lb_av] Lenora Colon RN RN, [address] [place] [address] [address] [facility] [place] [facility] respiratory rate E&M 18 /min Lenora Colon RN RN, [address] [place] [address] [address] [facility] [place] blood pressure, diastolic, right arm 81 mm[Hg] Lenora Colon RN RN, [address] [place] [address] [address] [place] [address] [facility] blood pressure, systolic, right arm 121 mm[Hg] Lenora Colon RN RN, [address] [place] [address] [address] [place] [address] [facility] temperature E&M 97.5 [degF] Lenora Colon RN RN, [address] [place] [address] [address] [place] [address] [facility] height E&M 68 [in_i] Lenora Colon RN RN, [address] [place] [address] [address] [place] [address] [facility] blood pressure, diastolic 81 mm[Hg] Trisha Barone [address] [place] [address] [address] [place] [address] [facility] blood pressure, systolic 170 mm[Hg] Trisha Abisai , [address] [place] [address] [address] [place] [address] [facility] Body Mass Index (Ratio) 18.31 kg/m2 Trisha Barone [address] [place] [address] [address] [place] [address] [facility] weight E&M 120 [lb_av] Trisha Barone [address] [place] [address] [address] [place] [address] [facility] height E&M 68 [in_i] Trisha Abisai [address] [place] [address] [address] [place] [address] [facility] pulse rate 71 /min Trisha Barone [address] [place] [address] [address] [place] [address] [facility] blood pressure, site #2 Upper arm Trisha Abisai [address] [place] [address] [address] [place] [address] [facility] blood pressure, diastolic, left arm 81 mm[Hg] Trisha Barone [address] [place] [address] [address] [place] [address] [facility] blood pressure, systolic, left arm 170 mm[Hg] Trisha Barone [address] [place] [address] [address] [place] [address] [facility] blood pressure, site #1 Upper arm Trisha Abisai [address] [place] [address] [address] [facility] [address] [facility] blood pressure, diastolic, right arm 80 mm[Hg] Trisha Barone [address] [place] [address] 2 [facility] [address] [facility] blood pressure, systolic, right arm 114 mm[Hg] Trisha Barone [address] [address] [facility] ALLERGIES Allergy Name Onset Date Reaction Criticality Status Provider Or ganization RANITIDINE High Criticality active R masoud Barone [address] [place] [address] 2 [facility] [address] [facility] HISTORY OF MEDICATION USE Medication Instructions Status Dates Provider Indications Com ments Organization [id number] TABS TAKE 1 TABLET BY MOUTH ONCE DAILY. active Trisha Barone [address] [address] [facility] sodium bicarbonate 650 mg tablet TAKE 2 TABLETS BY MOUTH IN THE MORNING, 2 TABLETS IN THE EVENING AND 2 TABLETS AT BEDTIME. completed - 06/[address] [address] [facility] atorvastatin 40 mg tablet TAKE 1 TABLET (40 MG) BY MOUTH AT BEDTIME. 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 Lenora Colon RN, RN, [address] [place] [address] [facility] social history E&M Patient willy pedersen smokes sometimes.; Patient has been counseled to quit.; Marijuana Use: Y; Lenora Colon RN, RN, [address] [place] [address] [facility] personal history of marijuana use yes Lenora Colon RN, RN, [address] [place] [address] [facility] smoking status Current some day smoker Lenora Colon RN, RN, [address] [place] [address] 2 [facility] [address] [facility] social history reviewed E&M reviewed - no changes required Lenora Colon RN RN, [address] [place] [address] [address] [facility] [address] [facility] smoking/tobacco cessation, patient education and counseling yes Lenora Colon RN RN, [address] [place] [address] [address] [facility] [address] [facility] handedness right Lit Miller MD, MD, [address] [facility] [address] [facility] social history E&M Patient willy ntly smokes sometimes.; Marijuana Use: Y; Trisha Barone [address] [facility] [address] [facility] personal history of marijuana use yes Trisha Barone [address] [facility] [address] [facility] social history reviewed E&M reviewed - no changes required Trisha Barone [address] [facility] [address] [facility] smoking status Current some day smoker Trisha Barone [address] [facility] [address] [facility] personal history of marijuana use yes Trisha Barone [address] [facility] [address] [facility] social history E&M Patient willy pedersen smokes every day.; Marijuana Use: Y; Trisha Barone [address] [facility] [address] [facility] social history reviewed E&M reviewed - no changes required Trisha Barone [address] [facility] [address] [facility] smoking status Current every da y smoker Trisha Barone [address] [facility] [address] [facility] FAMILY HISTORY Family Member Condition Mother Unknown INSURANCE PROVIDERS Payer name Policy type / Coverage type Tracey red libertarian [place] [employer] [place] - [place] [id number] TREATMENT PLAN Date Name Provider Vein Mapping Kaitlyn Aguilar DMS, RVT RDMS, RVT, [address] [place] [address] [address] [facility] [address] HISTORY OF PROCEDURES Procedure Date Procedure Name Provider Procedure Notes Status Organization INJECTION MIDAZOLAM HCL PER 1 MG Lit Miller MD, MD, [address] [place] [address] completed [facility] INJECTION FENTANYL CITRATE 100MCG Lit Miller MD, MD, [address] [place] [address] completed [facility] INJ HEPARIN SODIUM PER 1000 UNITS Lit Miller MD, MD, [address] [place] [address] completed [facility] INFUS NORMAL SALINE SOLUTION 250 CC Lit Miller MD, MD, [address] [place] [address] completed [facility] Benadryl 50mg Lit Miller MD, MD, [address] [place] [address] completed [facility] Ancef 1g Lit Miller MD, MD, [address] [place] [address] completed [facility] Creation of Brachicephalic, Radiocephalic, Brachiobasilic Lit Miller MD, MD, [address] [place] [address] Left 1st Stage completed [facility] Antibiotic initiated on time-Yes Lit Miller MD, MD, [address] [place] [address] completed [facility] Quailty Measures all negative Lit Miller MD, MD, [address] [place] [address] completed [facility] SNOMED-CT:PATIENT ENCOUNTER Lit Miller MD, MD, [address] [place] [address] completed [facility] SNOMED-CT:PATIENT ENCOUNTER Lit Miller MD, MD, [address] [place] [address] completed [facility]
--- OUTSIDE RECORDS SUMMARY | 2024-09-05 06:42 | XMS_ITS | Clinical Summary ---
Author Organization [facility] Address [address] [place] [address] Care Team Providers Care Contour Path Tape Mill Operator Name Role Phone [facility] [place] Primary Care Provider Allergies Active Allergy Reactions [...] on file Legal Sex Male 9:52 PM [employer]ILDING [employer] Gender Identity Not on file Sexual Orientation Not on file Last Filed Vital Signs Vital Sign Reading Time Taken Comments Blood Pressure 116/67 07/31/2023 3:45 PM [employer]ILDING [employer]PUT[employer] SHERIFF Pulse 49 07/31/2023 3:45 PM [employer]ILDING [employer]ARD [employer]PUT[employer] SHERIFF Temperature 36.4 C (97.5 F) 07/31/2023 3:15 PM BUILDING GUARD DEPUT[employer] SHERIFF Respiratory Rate 16 07/31/2023 3:20 PM BUILDING GUARD DEPUT[employer] SHERIFF Oxygen Saturation 95% 07/31/2023 3:45 PM BUILDING GUARD DEPUTY SHERIFF Inhaled Oxygen Concentration - - Weight 54.5 kg (120 lb 3.2 oz) 07/31/2023 12:05 PM BUILDING GUARD DEPUTY SHERIFF Height 172.7 cm (5' 7.99) 07/31/2023 12:[address] Body Mass Index 18.28 07/31/2023 12:05 PM BUILDING GUARD DEPUTY SHERIFF Plan of Treatment Health Maintenance Due Date [...] patient's age to complete this topic Insurance [facility] Care Teams Contour Path Tape Mill Operator Relationship Specialty Start Date End Date Clinic, [address] [address] PCP - General 07/31/23
--- NOTE | 2024-09-05 06:43 | CRLHL7_ITS ---
For Patients: As a result of the Cures Act, medical imaging exams and procedure reports are released immediately into your electronic medical record. You may view this report before your referring provider. If you have questions, please contact your health care provider. INDICATION: Evaluate endotracheal tube COMPARISON: Earlier today TECHNIQUE: 1 view chest radiograph. FINDINGS: Devices: New endotracheal tube distal tip is 3.5 centimeters above the abiodun. Right IJ dual lumen central line unchanged. Lung volumes are good. Similar moderate to severe pulmonary edema. Similar opacification in the right mid to lower chest. No layering pleural effusion. No pneumothorax. No pneumomediastinum. Heart size is large but unchanged. Bones: No acute findings. IMPRESSION: The endotracheal tube is 3.5 centimeters above the abiodun. Dictated by Pricilla Velásquez MD @ 09/05/2024 6:58:05 AM (Electronically Signed)
--- OUTSIDE RECORDS SUMMARY | 2024-09-05 06:43 | XMS_ITS | Clinical Summary ---
Author Organization [employer] [facility] Address [address] [place] [address] Care Team Providers Care Tapper Supervisor Name Role Phone Pcp, No Unavailable Unavailable Shelia Dietrich DO Primary Care Provider [phone] Merari Jenkins RN Unavailable Allergies Active Allergy [...] at bedtime. 30 Tablet 4 4:01 PM COORDINATOR [employer] 05/25/20 24 Active multivitamin with folic acid [...] the morning. 30 Tablet 4 4:01 PM COORDINATOR [employer] 05/25/20 24 025 Discontinued( Pharmacist change per medication history (E-cancel not sent)) carvediloL (COREG) 6.25 mg tabletIndicatio ns:HFrEF (heart failure with reduced ejection fraction) (HC),Hypertensi on Take 1 Tablet (6.25 mg) by mouth two times daily with meals. 60 Tablet 4 4:01 PM COORDINATOR [employer] 05/25/20 24 025 Discontinued( *IP Discontinued) Active [...] Type Department Care Team Description 09/02/2024 Telephone [facility] [address] [address] Shelia Dietrich, Follow Up 08/31/[address] [place] [address] Niesha Acosta NP 08/26/2024 Telephone [facility] [address] [place] [address] [facility] Cancer Referral ( Non-small cell cancer of right lung (HC) [C34.91]) 08/26/2024 Telephone [facility] [address] [place] [address] Edilberto Dial MD Results (BIOPSY RESULTS) 08/26/2024 Telephone [facility] [address] [facility] [address] [place] [address] Archie Auugst MD Error-please disregard 08/25/2024 Patient Outreach [facility] [address] [place] [address] Aparna Gilmore, RN Primary RN Care Management; Hospital F/U (LACE 65) 08/23/2024 Travel 08/19/2024 2:50 PM CDT Anesthesia Event [address] [address] Sue Briceño CRNA Sangmo, Tsering, FOIL STAMP OPERATOR 08/19/2024 1:24 PM CDT - 08/19/2024 3:28 PM CDT Surgery [address] [address] Edilberto Dial MD BRONCHOSCOPY ENDOBRONCHIAL ULTRASOUND FINE NEEDLE ASPIRATE 08/19/2024 Travel 08/17/2024 2:18 AM CDT - 08/24/2024 12:02 PM CDT Hospital Encounter [address] [address] Doctors(d), [facility], MD Jethro Chester, MD Brody Lynn, Amy Shah, Ivette Munoz MBBS [facility] Internal Hypertension (Primary Dx); Chronic obstructive pulmonary disease, unspecified COPD type (HC) Discharge Disposition: Home Self Care 06/28/2024 Patient Outreach [facility] [address] [place] [address] Adrianna Collins, JOSE LUIS Student Primary RN Care Management (Lace score 60); Hospital F/U 06/25/2024 7:36 PM COORDINATOR [employer] - 06/26/2024 11:45 AM COORDINATOR [employer] Hospital Encounter [facility] [address] [place] [address] [facility] [place]un Martinez MD Chaudhry, Viki Abreu MD [...] on file Legal Sex Male 4:18 PM COORDINATOR [employer] Gender Identity Not on file Sexual Orientation [...] 174 cm (5' 8.5) 05/17/2024 3:00 PM COORDINATOR [employer] Body Mass Index 17.14 05/17/2024 3:00 PM COORDINATOR [employer] Plan of Treatment Upcoming Encounters Date Type Department Care Team (Late st Contact Info) Description 2024 11:15 AM CDT Office Visit [facility] [address] [place] [address] Shelia Dietrich, DO [address] [place] [address] Health Maintenance Due Date Last Done Comments [...] STAIN Today 08/19/2024 3: 54 PM CDT ELY PREP, OTHER SOURCE Today 08/19/2024 3:54 PM [...] STAIN Today 08/19/2024 3: 31 PM CDT ELY PREP, OTHER SOURCE Today 08/19/2024 3:31 PM CDT ANAEROBIC CULTURE Today 08/19/2024 3:3 1 PM CDT PATH NON STUDENT MINISTRIES DIRECTOR CYTOLOGY Today 08/19/2024 3:14 PM CDT ENDOTRACHEAL TUBE Routine 08/19/2024 3:0 8 PM CDT ENDOTRACHEAL TUBE Routine 08/19/2024 3:0 8 PM CDT APTT STAT 08/19/2024 2:44 PM CDT PROTIME-INR STAT 08/19/2024 2:44 PM CDT BRONCHOSCOPY ENDOBRONCHIAL ULTRASOUND FINE NEEDLE ASPIRATE Class D Urgent 08/19/2024 2:34 PM CDT Right lung mass, mediastinal lymphadenopathy Case Notes NCD FNA - entered into teams [id number] kf, ok per lm BRONCHOSCOPY 08/19/2024 2:28 [...] AM CDT SCAN CORRESP-IMAGING 06/28/2024 3:02 PM COORDINATOR [employer] SCAN CORRESP-EKG RESULTS 06/28/2024 2:48 PM COORDINATOR [employer] SCAN-CARDIAC STRIP 06/26/2024 7: 56 AM COORDINATOR [employer] HBSAG (HBS) STAT 06/26/2024 7:16 AM COORDINATOR [employer] PLATELET COUNT Early AM 06/26/2024 7:16 AM COORDINATOR [employer] HEMOGLOBIN Early AM 06/26/2024 7:16 AM COORDINATOR [employer] WHITE BLOOD COUNT Early AM 06/26/2024 7:1 6 AM COORDINATOR [employer] MAGNESIUM Early AM 06/26/2024 7:16 AM COORDINATOR [employer] POTASSIUM Early AM 06/26/2024 7:16 AM COORDINATOR [employer] SODIUM Early AM 06/26/2024 7:16 AM COORDINATOR [employer] SCAN-CARDIAC STRIP 06/25/2024 8: 41 PM COORDINATOR [employer] ANTI HCV Early AM 04/28/2024 5:01 AM COORDINATOR [employer] from Last 3 Months or Most Recently [...] CHEST 1 VIEW PA OR AP LOCATION: [facility] DATE: 08/23/2024 INDICATION: Post Procedure, CT-guided [...] CHEST 1 VIEW PA OR AP LOCATION: [facility] DATE: 08/23/2024 INDICATION: Post Procedure, CT-guided [...] targeted in the future. Reference CPT Codes: 37763, , Narrative 08/23/2024 4:18 PM CDT For [...] 2. CT GUIDANCE 3. CONSCIOUS SEDATION LOCATION: [facility] DATE: 08/23/2024 INDICATION: free text)->lung biopsy s/p Ebus for lung mass TECHNIQUE: Dose reduction techniques were used. PROCEDURE: Informed consent obtained. Site marked. Prior images reviewed. Required items made available. Patient identity confirmed verbally and with arm band. Patient reevaluated immediately before administering sedation. [place] protocol was followed. Time out performed. The [...] 2. CT GUIDANCE 3. CONSCIOUS SEDATION LOCATION: [facility] DATE: 08/23/2024 INDICATION: free text)->lung biopsy s/p Ebus for lung mass TECHNIQUE: Dose reduction techniques were used. PROCEDURE: Informed consent obtained. Site marked. Prior images reviewed.Required items made available. Patient identity confirmed verbally andwith arm band. Patient reevaluated immediately before administeringsedation. [place] protocol was followed. Time out performed. The [...] targeted in the future. Reference CPT Codes: 64174, , us Niesha Acosta PHYSICAL THERAPIST ASSISTANT CT Final Re sult * FOCUS (08/23/2024 2:21 PM CDT) Aspirate SPECIMEN OBTAINED BY ASPIRATION / Unknown 08/23/2024 2:21 PM CDT 08/25/2024 6:33 AM CDT us Niesha Acosta PHYSICAL THERAPIST ASSISTANT LABORATORY Final Re sult [facility] [address] [place] [address], [place] * PATH FNA Cytology ASP Cytology (08/23/2024 2:21 PM CDT) Case Report Medical Cytology Report Case: [id number] Authorizing Provider: Niesha Acosta NP Collected: 08/23/2024 1421 Ordering Location: [facility] Received: 08/23/2024 1436 Pathologist: Thai Ojeda MD Specimen: Aspirate 3:14 PM CDT [facility] Amendment 08/25/2024 - Amendment issued to report PD-L1 results. See final diagnosis section. 08/31/2024 - Amendment to report [facility] Lung Targeted Next Generation Sequencing results. Please see attached scanned report and updated diagnosis. 3:14 PM CDT [facility] Final Diagnosis A) LUNG, RIGHT LOWER [...] mutation; see attached report 3:14 PM CDT [facility] Amendment electronically signed by Trevor [...] tests other than these, please contact the [facility] ([phone]). Slides available for [facility] NGS testing: Insufficient [...] will be attempted 5 3:14 PM CDT [facility]- [facility]ENTRAL LABORATORY Clinical Information Mr. Reardon [...] Follow-up guideline below. 5 3:14 PM CDT [facility] Gross Description A) Received identified as [...] than 72 hours. 5 3:14 PM CDT [facility] Microscopic Description Specimen adequacy: Adequate for interpretation. All slides were reviewed. The microscopic appearance substantiates the diagnosis. 3:14 PM CDT [facility] Molecular Diagnostics Summary Preanalytical microdissection of tissue/cytology slides for Next Generation Sequencing was performed according to laboratory protocol as follows: Microscopic examination was performed by a pathologist, Dr. Alcocer, to determine specimen adequacy and identify areas of tumor for isolation. Areas of tumor selected and marked by the pathologist were manually harvested by a laboratory machinist for nucleic acid extraction. 5 3:14 PM CDT [facility] Additional Information Cytology is screened at [facility] - [address], [place] [address] and [facility] - [address], [place] [address] and [facility] - [address] [facility] [address] Interpreted at [facility] - [address], [place] [address] Immunohistochemistry controls were reviewed and approved as [...] incubated with a PD-L1 rabbit monoclonal antibody (Tzee PD-L1 SP263 assay), performed on the Tzee BenchMark ULTRA instrument and visualized with OptiView [...] than or equal to 1% (Expression) This Everly SP263 immunohistochemical antibody assay is considered a laboratory developed test for patients with non-small cell lung cancer who are being considered for treatment with atezolizumab. This Everly SP263 immunohistochemical antibody assay is considered a [...] specimens. References N Engl J Med 2020; 383:0070-5477 10.1056/SEMTmy8364424 J Thorac Oncol 2018;13(3):367-76 https://doi.org/10.101 6/j.jtho.2017.11.112 J Thorac Oncol 2018;13(9):1302-11 https://doi.org/10.101 6/j.jtho.2018.05.013 J Thorac Oncol 2017;12(11):6904-63 https://doi.org /10.1016/j.jtho.2017.0 7.031 Am J Clin Oncol 202;39(15)suppl:8500 10.1200/JCO.202.39.1 5_suppl.8500 Disclaimer Support for the interpretation of this case may have included the use of immunohistochemistry and/or in situ hybridization tests that were performed by [facility] and whose performance characteristics were evaluated by [...] complexity clinical laboratory testing. 3:14 PM CDT [facility] Aspirate SPECIMEN OBTAINED BY ASPIRATION / Unknown 08/23/2024 2:21 PM CDT 08/23/2024 2:36 PM CDT Niesha Acosta NP PATHOLOGY/CYTOLOGY Edite d Result - Final [facility] [address] [place] [address], * (ABNORMAL) POTASSIUM (08/23/2024 6:59 AM CDT) Only the most recent of4 resultswithin the time period is included. POTASSIUM 5.3(H) 3.5 - 5.1 mmol/L 08/23/2024 8:[address] [facility] Blood BLOOD SPECIMEN / Unknown Butterfly / Unknown 08/23/2024 6:59 AM CDT 08/23/2024 7:02 AM CDT Amy Shah Brody THOMASON CHEMISTRY Final Result [facility] INTERNAL ZIP [address] [address] [facility] [place] [address] * (ABNORMAL) CREATININE (08/23/2024 6:59 AM CDT) Only the most recent of2 resultswithin the time period is included. eGFR 9(L) >90 mL/min/1.7 3m2 08/23/2024 8:[address] [facility] Comment:As of 2021, eG FR is calculated by the CKD-EPI creatinine equation without race adjustment. eGFR can be influenced by muscle mass, exercise, and diet. The reported eGFR is an estimation only and is only applicable if the renal function is stable. CREATININE 6.35(H) 0.70 - 1.20 mg/dL 08/23/2024 8:[address] [facility] Blood BLOOD SPECIMEN / Unknown Butterfly / Unknown 08/23/2024 6:59 AM CDT 08/23/2024 7:02 AM CDT Amy Shah Brody THOMASON CHEMISTRY Final Result [facility] INTERNAL ZIP [address] [address] [place] [address] * (ABNORMAL) PROCALCITONIN (08/20/2024 11:41 AM CDT) Only the most recent of2 resultswithin the time period is included. PROCALCITONIN 7.75(H) ng/ml 08/20/2024 12:[address] [facility] Blood BLOOD SPECIMEN / Unknown Line/Port / Unknown 08/20/2024 11:41 AM CDT 08/20/2024 11:[address] [facility] - 08/20/2024 12:32 PM CDT [...] Amy Skinner DO SEND OUTS Final Result [facility] [place] ZIP [address] [address] [place] [address] * (ABNORMAL) HEMOGLOBIN (08/20/2024 11:41 AM CDT) Only the most recent of3 resultswithin the time period is included. HEMOGLOBIN 10.5(L) 13.5 - 17.5 g/dL 08/20/2024 11:[address] [facility] MCV 96 80 - 100 fL 08/20/2024 11:[address] [facility] Blood BLOOD SPECIMEN / Unknown Line/Port / Unknown 08/20/2024 11:41 AM CDT 08/20/2024 11:45 AM CDT Amy Shah Brody DO HEMATOLOGY Final Result [facility] INTERNAL ZIP [address] [place] [address] * MAGNESIUM (08/20/2024 11:41 AM CDT) Only the most recent of3 resultswithin the time period is included. MAGNESIUM 1.9 1.6 - 2.4 mg/dL 08/20/2024 12:[address] [facility] Blood BLOOD SPECIMEN / Unknown Line/Port / Unknown 08/20/2024 11:41 AM CDT 08/20/2024 11:45 AM CDT Amy Ingramandrea THOMASON CHEMISTRY Final Result [facility] [place] ZIP [address] [address] [place] [address] * XR CHEST 1 VIEW PORTABLE (08/19/2024 [...] EXAM: XR CHEST 1 VIEW PORTABLE LOCATION: [facility] DATE: 08/19/2024 INDICATION: Post procedure. COMPARISON: 08/18/2024. Procedure Note Nando Pulido MD - 08/19/2024 For Patients: As a result of the Cures Act, medical imagingexams and procedure reports are released immediately into your electronicmedical record. You may view this report before your referring provider.If you have questions, please contact your health care provider. EXAM: XR CHEST 1 VIEW PORTABLE LOCATION: [facility] DATE: 08/19/2024 INDICATION: Post procedure. COMPARISON: [...] CULTURE Usual josé 08/21/2024 8:52 AM CDT [facility] TRA LABORATORY GRAM STAIN 2+ PMNs 08/21/2024 8:[address] [facility] GRAM STAIN 4+ RBCs 08/21/2024 8:[address] [facility] GRAM STAIN No Epithelial cells 08/21/2024 8:[address] [facility] GRAM STAIN No organisms seen 08/21/2024 8:[address] [facility] GRAM STAIN [facility] [place] 08/21/2024 8:[address] [facility] Bronchoalveolar Lavage (Right Lower Lobe Lung Bronchoalveolar Lavage) Non-Blood / Unknown 08/19/2024 4:21 PM CDT 08/19/2024 5:14 PM CDT Edilberto Dial MD MICROBIOLOGY Final R esult [facility] [address] [place] [address], [facility] [address] ZIP [address] [address] [place] [address] * BAL COUNT AND DIFF (08/19/2024 4:21 PM CDT) BODY FLUID SOURCE Bronchoalveolar Lavage 08/19/2024 7:27 PM [facility] Comment:RLL BAL COLOR Grossly Bloody 08/19/2024 7:27 PM [facility] BAL CLARITY Turbid 08/19/2024 7:27 PM [facility] TOTAL NUCLEATED CELLS, BF 109 /cu mm 08/19/2024 7:27 PM [facility] % NEUTROPHILS, BODY FLUID 60 % 08/19/2024 7:27 PM [facility] % LYMPHOCYTES, BODY FLUID 8 % 08/19/2024 7:27 PM [facility] % MONO/MACRO, BAL 32 % 08/19/2024 7:27 PM [facility] BRONCH EPITHELIAL Few 08/19/2024 7:[address] [facility] Bronchoalveolar Lavage (Right Lower Lobe Lung Bronchoalveolar Lavage) Non-Blood / Unknown 08/19/2024 4:21 PM CDT 08/19/2024 5:[address] [facility] - 08/19/2024 7:27 PM CDT Result may be inaccurate due to clots or cell clumps. Edilberto Dial MD BODY FLUID Final R esult [facility] INTERNAL ZIP [address] [address] [place] [address] * ELY PREP, OTHER SOURCE (08/19/2024 4:21 PM CDT) Only the most recent of4 resultswithin the time period is included. OBSERVATION No fungal elements seen 08/19/2024 6:[address] [facility] Bronchoalveolar Lavage (Right Lower Lobe Lung Bronchoalveolar Lavage) Non-Blood / Unknown 08/19/2024 4:21 PM CDT 08/19/2024 5:14 PM CDT Edilberto Dial MD MICROBIOLOGY Final R esult [facility] INTERNAL ZIP [address] [address] [place] [address] * ANAEROBIC CULTURE (08/19/2024 4:21 PM CDT) Only the most recent of4 resultswithin the time period is included. CULTURE No anaerobes isolated 08/25/2024 11:15 AM CDT [facility] Bronchoalveolar Lavage (Right Lower Lobe Lung Bronchoalveolar Lavage) Non-Blood / Unknown 08/19/2024 4:21 PM CDT 08/19/2024 5:14 PM CDT us Edilberto Dial MD MICROBIOLOGY Final R esult [facility] [address] [place] [address], [place] * AEROBIC BACTERIAL CULTURE, STAIN (08/19/2024 3:54 PM CDT) Only the most recent of3 resultswithin the time period is included. CULTURE No Growth. 08/24/2024 11:00 AM CDT [facility] GRAM STAIN 2+ PMNs 08/24/2024 11:[address] [facility] GRAM STAIN 4+ RBCs 08/24/2024 11:[address] [facility] GRAM STAIN No Epithelial cells 08/24/2024 11:[address] [facility] GRAM STAIN No organisms seen 08/24/2024 11:[address] [facility] GRAM STAIN Gram stain peformed by [place] 08/24/2024 11:[address] [facility] Aspirate (Station 11R Interlobar Lymph Node) Non-Blood / Unknown 08/19/2024 3:54 PM CDT 08/19/2024 5:21 PM CDT Edilberto Dial MD MICROBIOLOGY Final R esult [facility] [address] [address], [facility] [place] [address] [address] [address] [place] [address] * ACTINOMYCES CULTURE (08/19/2024 3:54 PM CDT) Only the most recent of3 resultswithin the time period is included. CULTURE No Actinomyces isolated. 08/30/2024 6:57 AM CDT [facility] LABORATORY Aspirate (Station 11R Interlobar Lymph Node) Non-Blood / Unknown 08/19/2024 3:54 PM CDT 08/19/2024 5:21 PM CDT us Edilberto Dial MD MICROBIOLOGY Final R esult Performing Organization Address City/[facility]/ZIP Co de Phone Number [facility] [address] [place] [address], * PATH NON STUDENT MINISTRIES DIRECTOR CYTOLOGY (08/19/2024 3:14 PM CDT) Case Report Medical Cytology Report Case: [id number] Authorizing Provider: Edilberto Dial MD Collected: 08/19/2024 1514 Ordering Location: [facility] Received: 08/19/2024 1646 Pathologist: Nimesh Corral Jr., MD Specimens: A) - Level 7 Lymph Node, 3cm B) - Station 4R Lower Paratracheal Lymph Node, 2cm C) - Station 11R Interlobar Lymph Node, 1.5cm D) - Right Lower Lobe Lung Bronchial Brushing, @1625 E) - Right Lower Lobe Lung Bronchoalveolar Lavage 08/24/2024 3:55 PM CDT [employer] LABORAT[facility]-C ENTRAL LABORATORY Final Diagnosis A) STATION [...] malignancy (see comment) 08/24/2024 3:55 PM CDT [facility]-C ENTRAL LABORATORY at 1555 CDT Comment The atypical cells present in part E are not definitively neoplastic, and may represent reactive pneumocytes or metaplastic epithelium. They are not diagnostic for any particular process. Please correlate with clinical and radiologic findings. 08/24/2024 3:55 PM CDT [employer] LABORAT[facility]-C ENTRAL LABORATORY Clinical Information 63 year old male with CT demonstrating an enlarging mass-like consolidation in the posterior right lower lobe measuring at least 9.1 x 4.7 cm, abutting the right major fissure and right posterior pleural surface. 08/24/2024 3:55 PM CDT [facility]-C ENTRAL LABORATORY Gross Description A) Received [...] stained ThinPrep slides 08/24/2024 3:55 PM CDT [facility] Adequacy Assessment A) D.S. assessed adequacy [...] impression of Adequate. 08/24/2024 3:[address] [facility] Microscopic Description Specimen adequacy: Adequate for interpretation. All slides were reviewed. The microscopic appearance substantiates the diagnosis. GMS and Seng stains were performed on blocks A2 and B2 and are negative for organisms. 08/24/2024 3:55 PM CDT [facility] Flow Cytometry Summary T & B Cell Screen panel: Interpretation: No monotypic B or T lymphocytes are detected. Clinical indication for flow cytometry: Evaluation of lymphoid phenotype. Percent of Lymphs B cells (CD19+): 46.8% T cells (CD3+): 51.6% NK cells (CD3-/CD56+): 1.5% CD3+/CD4+: 35.6% CD3+/CD8+: 9.2% CD4:CD8 ratio: 3.9 CD19+/[facility]: 17.3% CD19+/Lambda: 17.9% [facility]:Lambda ratio: 1.0 B and T lymphocytes in this analysis demonstrate normal qualitative expression of the following antigens: CD2, CD3, CD4, CD5, CD7, CD8, CD10, CD19, CD20, CD45, CD56, [facility] and Lambda surface light chains, TCR gamma delta, and TRBC1. Quality Assessment Viability (7-AAD): 73% Polytypic B cell events: 3848 Polytypic T cell events: 4164 Nucleated cells analyzed: 90622 Limit of detection (LOD): 0.5% These results and cytograms have been verified by Dr. Corral. This test was developed and its performance characteristics verified by [facility]. It has not been cleared [...] 08/24/2024 1:33 PM 08/24/2024 3:55 PM CDT [facility] Additional Information Cytology is screened at [facility] - [address], [place] [address] and [facility] - [address], [place] [address] and [facility] - [address], [place] [address] Interpreted at [facility], Central Laboratory - [address], [place] [address] 08/24/2024 3:55 PM CDT [facility]-C ENTRAL LABORATORY Aspirate (Level 7 Lymph [...] Edilberto Dial MD PATHOLOGY/CYTOLOGY Natalee narayan Result [facility] [address] [place] [address], [facility] [place]NAL ZIP [address] [address] [place] [address] * HCHG TUBE PR1, HCHG STYLET PR1 [...] - 36 sec 08/19/2024 3:[address] [facility] Blood BLOOD SPECIMEN / Unknown Butterfly / Unknown 08/19/2024 2:44 PM CDT 08/19/2024 2:51 PM CDT [facility] LAB[facility] - 08/19/2024 3:17 PM CDT Therapeutic Range: 59-89 seconds us Edilberto Dial MD HEMATOLOGY Final R esult [facility] INTERNAL ZIP [address] [address] [place] [address] * PROTIME-INR (08/19/2024 2:44 PM CDT) INR 1.1 <1.3 08/19/2024 3:[address] [facility] PROTIME 12.3 10.6 - 12.4 sec 08/19/2024 3:[address] [facility] Blood BLOOD SPECIMEN / Unknown Butterfly / Unknown 08/19/2024 2:44 PM CDT 08/19/2024 2:51 PM CDT [facility] - 08/19/2024 3:17 PM CDT [...] Edilberto Dial MD HEMATOLOGY Final R esult [facility] INTERNAL ZIP [address] [place] [address] * BRONCHOSCOPY (08/19/2024 2:28 PM CDT) 08/19/2024 [...] aspiration was also performed using an Olympus KulizaiShot 21 gaugeneedle in the right lower paratracheal region (level 4R), subcarinal mediastinum (level 7) and right superior interlobar region ([id number]) and sent for routine cytology and bacterial, [...] - 11.0 thou/cu mm 08/19/2024 9:22 AM [facility] RED BLOOD COUNT 3.54(L) 4.30 - 5.90 mil/cu mm 08/19/2024 9:22 AM [facility] [facility] HEMOGLOBIN 10.9(L) 13.5 - 17.5 g/dL 08/19/2024 9:22 AM [facility] HEMATOCRIT 33.2(L) 37.0 - 53.0 % 08/19/2024 9:22 AM [facility] MCV 94 80 - 100 fL 08/19/2024 9:22 AM [facility] MCH 30.8 26.0 - 34.0 pg 08/19/2024 9:22 AM [facility] MCHC 32.8 32.0 - 36.0 g/dL 08/19/2024 9:22 AM [facility] RDW 14.6 11.5 - 15.5 % 08/19/2024 9:22 AM [facility] PLATELET COUNT 263 140 - 440 thou/cu mm 08/19/2024 9:22 AM [facility] MPV 11.0 6.5 - 11.0 fL 08/19/2024 9:22 AM [facility] NRBC 0.0 % 08/19/2024 9:22 AM [facility] ABS NRBC 0.0 thou /cu mm 08/19/2024 9:22 AM [facility] Blood BLOOD SPECIMEN / Unknown Non-Lab Venipuncture / Unknown 08/19/2024 8:50 AM CDT 08/19/2024 9:19 AM CDT us Zaheer Valerio MD HEMATOLOGY Final Result [facility] INTERNAL ZIP [address] [address] [place] [address] * (ABNORMAL) RENAL FUNCTION PANEL (08/19/2024 8:50 AM CDT) SODIUM 136 136 - 145 mmol/L 08/19/2024 9:51 AM [facility] POTASSIUM 3.9 3.5 - 5.1 mmol/L 08/19/2024 9:51 AM [facility] CHLORIDE 99 98 - 107 mmol/L 08/19/2024 9:51 AM [facility] CO2,TOTAL 23 22 - 29 mmol/L 08/19/2024 9:51 AM [facility] ANION GAP 14 5 - 18 08/19/2024 9:51 AM [facility] GLUCOSE 118(H) 70 - 99 mg/dL 08/19/2024 9:51 AM [facility] CALCIUM 9.3 8.8 - 10.4 mg/dL 08/19/2024 9:51 AM [facility] Comment: Reference ranges for this test were updated on 03/30/2024 to reflect our healthy population more accurately. Reference range changes are not retroactively applied to results, but previous results using the same methodology can be interpreted in the context of the new reference range. BUN 29(H) 8 - 23 mg/dL 08/19/2024 9:51 AM [facility] CREATININE 4.29(H) 0.70 - 1.20 mg/dL 08/19/2024 9:51 AM [facility] BUN/CREAT RATIO 7(L) 10 - 20 9:51 AM [facility] eGFR 15(L) >90 mL/min/1. 73m2 08/19/2024 9:51 AM [facility] Comment:As of 2021, eG FR is calculated by the CKD-EPI creatinine equation without race adjustment. eGFR can be influenced by muscle mass, exercise, and diet. The reported eGFR is an estimation only and is only applicable if the renal function is stable. PHOSPHORUS 3.8 2.5 - 4.5 mg/dL 08/19/2024 9:51 AM [facility] ALBUMIN 3.9(L) 4.0 - 4.9 g/dL 08/19/2024 9:51 AM [facility] Blood BLOOD SPECIMEN / Unknown Non-Lab Venipuncture / Unknown 08/19/2024 8:50 AM CDT 08/19/2024 9:17 AM CDT us Zaheer Valerio MD CHEMISTRY Final Result [facility] INTERNAL ZIP [address] [address] [place] [address] * (ABNORMAL) COMP METABOLIC PANEL (08/19/2024 8:50 AM CDT) Only the most recent of2 resultswithin the time period is included. SODIUM 136 136 - 145 mmol/L 08/19/2024 9:51 AM [facility] POTASSIUM 3.9 3.5 - 5.1 mmol/L 08/19/2024 9:51 AM [facility] CHLORIDE 99 98 - 107 mmol/L 08/19/2024 9:51 AM [facility] CO2,TOTAL 23 22 - 29 mmol/L 08/19/2024 9:51 AM [facility] ANION GAP 14 5 - 18 08/19/2024 9:51 AM [facility] GLUCOSE 118(H) 70 - 99 mg/dL 08/19/2024 9:51 AM [facility] CALCIUM 9.3 8.8 - 10.4 mg/dL 08/19/2024 9:51 AM [facility] Comment: Reference ranges for this test were updated on 03/30/2024 to reflect our healthy population more accurately. Reference range changes are not retroactively applied to results, but previous results using the same methodology can be interpreted in the context of the new reference range. BUN 29(H) 8 - 23 mg/dL 08/19/2024 9:51 AM [facility] CREATININE 4.29(H) 0.70 - 1.20 mg/dL 08/19/2024 9:51 AM [facility] BUN/CREAT RATIO 7(L) 10 - 20 9:51 AM [facility] eGFR 15(L) >90 mL/min/1. 73m2 08/19/2024 9:51 AM [facility] Comment:As of 2021, eG FR is calculated by the CKD-EPI creatinine equation without race adjustment. eGFR can be influenced by muscle mass, exercise, and diet. The reported eGFR is an estimation only and is only applicable if the renal function is stable. ALBUMIN 3.9(L) 4.0 - 4.9 g/dL 08/19/2024 9:51 AM [facility] PROTEIN,TOTAL 6.8 6.0 - 8.0 g/dL 08/19/2024 9:51 AM [facility] BILIRUBIN,TOTAL 0.3 0.0 - 1.2 mg/dL 08/19/2024 9:51 AM [facility] ALK PHOSPHATASE 163(H) 40 - 129 IU/L 08/19/2024 9:51 AM [facility] ALT (SGPT) 6(L) 10 - 50 IU/L 08/19/2024 9:51 AM [facility] AST (SGOT) 16 10 - 50 IU/L 08/19/2024 9:51 AM [facility] Blood BLOOD SPECIMEN / Unknown Non-Lab Venipuncture / Unknown 08/19/2024 8:50 AM T 08/19/2024 9:17 AM CDT us Brie Morelos MD CHEMISTRY Final R esult [facility] INTERNAL ZIP [address] [address] [place] [address] * SCAN-CARDIAC STRIP (08/19/2024 12:31 AM CDT) us Scanner OTHER Final Result * HBSAG (HBS) (08/18/2024 10:22 PM CDT) Only the most recent of2 resultswithin the time period is included. HBSAG Nonreactive Nonreactive 08/19/2024 11:56 AM CDT [facility] Blood BLOOD SPECIMEN / Unknown Butterfly / Unknown 08/18/2024 10:22 PM CDT 08/18/2024 10:26 PM CDT us Zaheer Valerio MD SEND OUTS Final Result [facility] [address] [place] [address], [place] * SCAN-CARDIAC STRIP (08/18/2024 9:58 PM CDT) us Scanner OTHER Final Result * SCAN-CARDIAC STRIP (08/18/2024 8:22 AM CDT) us Scanner OTHER Final Result * WHITE BLOOD COUNT (08/18/2024 5:23 AM CDT) Only the most recent of2 resultswithin the time period is included. WHITE BLOOD COUNT 10.3 4.5 - 11.0 thou/cu mm 08/18/2024 5:44 AM CDT [facility] NRBC 0.0 % 08/18/2024 5:44 AM CDT [facility] ABS NRBC 0.0 thou /cu mm 08/18/2024 5:44 AM CDT [facility] Blood BLOOD SPECIMEN / Unknown Butterfly / Unknown 08/18/2024 5:23 AM CDT 08/18/2024 5:42 AM CDT us Brie Morelos MD HEMATOLOGY Final R esult [facility] INTERNAL ZIP [address] [address] [place] [address] * (ABNORMAL) BASIC METABOLIC PANEL (08/18/2024 5:23 AM CDT) SODIUM 132(L) 136 - 145 mmol/L 08/18/2024 6:04 AM T [facility] POTASSIUM 5.4(H) 3.5 - 5.1 mmol/L 08/18/2024 6:04 AM [facility] CHLORIDE 99 98 - 107 mmol/L 08/18/2024 6:04 AM [facility] CO2,TOTAL 14(L) 22 - 29 mmol/L 08/18/2024 6:04 AM [facility] ANION GAP 19(H) 5 - 18 08/18/2024 6:04 AM [facility] GLUCOSE 101(H) 70 - 99 mg/dL 08/18/2024 6:04 AM [facility] CALCIUM 9.0 8.8 - 10.4 mg/dL 08/18/2024 6:04 AM [facility] Comment: Reference ranges for this test were updated on 03/30/2024 to reflect our healthy population more accurately. Reference range changes are not retroactively applied to results, but previous results using the same methodology can be interpreted in the context of the new reference range. BUN 46(H) 8 - 23 mg/dL 08/18/2024 6:04 AM [facility] CREATININE 5.73(H) 0.70 - 1.20 mg/dL 08/18/2024 6:04 AM [facility] BUN/CREAT RATIO 8(L) 10 - 20 6:04 AM [facility] eGFR 10(L) >90 mL/min/1. 73m2 08/18/2024 6:04 AM CDT [facility] Comment:As of 2021, eG FR [...] us Zaheer Valerio MD CHEMISTRY Final Result [facility] INTERNAL ZIP [address] [address] [place] [address] * SCAN-CARDIAC STRIP (08/18/2024 12:45 AM CDT) us Scanner OTHER Final Result * (ABNORMAL) TROPONIN T (HS) ONE TIME (08/18/2024 12:34 AM CDT) TROPONIN T HS 90(H) 6-15 ng/L ng/L 08/18/2024 12:57 AM CDT [facility] Blood BLOOD SPECIMEN / Unknown Capillary / Unknown 08/18/2024 12:34 AM CDT 08/18/2024 12:37 AM CDT us Milagros Dan MD CHEMISTRY Final Result [facility] INTERNAL ZIP [address] [place] [address] * LACTATE VENOUS (08/18/2024 12:34 AM CDT) Only the most recent of2 resultswithin the time period is included. LACTATE,VENOUS 1.2 0.5 - 2.0 mmol/L 08/18/2024 12:59 AM CDT [facility] Blood BLOOD SPECIMEN / Unknown Capillary / Unknown 08/18/2024 12:34 AM CDT 08/18/2024 12:37 AM CDT Milagros Dan MD CHEMISTRY Final Result [facility] INTERNAL ZIP [address] [address] [place] [address] * EKG 12 LEAD (08/18/2024 12:22 AM CDT) Pathologist [facility] Interpretation Sinus tachycardia Possible Left atrial enlargement [...] NOW QTc 453 ms BEYOND NOW P [place] 56 degrees BEYOND NOW R [place] 52 degrees BEYOND NOW T [place] 76 degrees BEYOND NOW 08/18/2024 12:2 2 AM CDT 08/19/2024 10:21 AM CDT Milagros Dan MD EKG ORD Final Result [place], [place] * (ABNORMAL) TROPONIN T (HS) ACUTE W/2HR REFLEX (08/17/2024 10:27 PM CDT) Pathologist [facility] TROPONIN T HS 80(H) 6-15 ng/L ng/L 08/17/2024 11:02 PM CDT [facility] Blood BLOOD SPECIMEN / Unknown Venipuncture / Unknown 08/17/2024 10:27 PM CDT 08/17/2024 10:31 PM CDT Narrative [facility] - 08/17/2024 11:02 PM CDT [...] population. Milagros Dan MD CHEMISTRY Final Result [facility] INTERNAL ZIP [address] [place] [address] * (ABNORMAL) CBC WITH AUTO DIFFERENTIAL (08/17/2024 10:27 PM CDT) [facility] WHITE BLOOD COUNT 13.2(H) 4.5 - 11.0 thou/cu mm 08/17/2024 10:36 PM CDT [facility] RED BLOOD COUNT 3.96(L) 4.30 - 5.90 mil/cu mm 08/17/2024 10:36 PM CDT [facility] HEMOGLOBIN 12.4(L) 13.5 - 17.5 g/dL 08/17/2024 10:36 PM T [facility] HEMATOCRIT 38.5 37.0 - 53.0 % 08/17/2024 10:36 PM [facility] MCV 97 80 - 100 fL 08/17/2024 10:36 PM [facility] MCH 31.3 26.0 - 34.0 pg 08/17/2024 10:36 PM [facility] MCHC 32.2 32.0 - 36.0 g/dL 08/17/2024 10:36 PM [facility] RDW 14.5 11.5 - 15.5 % 08/17/2024 10:36 PM [facility] PLATELET COUNT 302 140 - 440 thou/cu mm 08/17/2024 10:36 PM [facility] MPV 10.9 6.5 - 11.0 fL 08/17/2024 10:36 PM [facility] NRBC 0.0 % 08/17/2024 10:36 PM [facility] ABS NRBC 0.0 thou /cu mm 08/17/2024 10:36 PM [facility] % NEUT 58.6 % 08/17/2024 10:36 PM [facility] % LYMPH 26.5 % 08/17/2024 10:36 PM [facility] % MONO 5.2 % 08/17/2024 10:36 PM [facility] % EOS 8.4 % 08/17/2024 10:36 PM [facility] % BASO 0.5 % 08/17/2024 10:36 PM [facility] % IMMATURE GRAN (METAS,MYELOS,IL OS) 0.8 % 08/17/2024 10:36 PM [facility] ABSOLUTE NEUTROPHILS 7.8(H) 1.7 - 7.0 thou/cu mm 08/17/2024 10:36 PM [facility] ABSOLUTE LYMPHOCYTES 3.5(H) 0.9 - 2.9 thou/cu mm 08/17/2024 10:36 PM CDT [facility] ABSOLUTE MONOCYTES 0.7 <0.9 thou/cu mm 08/17/2024 10:36 PM CDT [facility] ABSOLUTE EOSINOPHILS 1.1(H) <0.5 thou/cu mm 08/17/2024 10:36 PM CDT [facility] ABSOLUTE BASOPHILS 0.1 <0.3 thou/cu mm 08/17/2024 10:36 PM CDT [facility] ABSOLUTE IMMATURE GRANULOCYTES(MET ,MYELOS,PROS) 0.1 <0.3 thou/cu mm 08/17/2024 10:36 PM CDT [facility] Blood BLOOD SPECIMEN / Unknown Venipuncture / Unknown 08/17/2024 10:27 PM CDT 08/17/2024 10:33 PM CDT Milagros Dan MD HEMATOLOGY Final Result [facility] INTERNAL ZIP [address] [place] [address] * (ABNORMAL) BLOOD GAS,VENOUS (08/17/2024 10:27 PM CDT) PH, VENOUS 7.25(L) 7.32 - 7.43 08/17/2024 10:40 PM CDT [facility] PCO2, VENOUS 39(L) 41 - 51 mmHg 08/17/2024 10:40 PM CDT [facility] PO2, VENOUS 137(H) 35 - 40 mmHg 08/17/2024 10:40 PM CDT [facility] HCO3,VENOUS 17(L) 22 - 29 mmol/L 08/17/2024 10:40 PM CDT [facility] BASE EXCESS, VENOUS, POCT -9.5(L) -2.0 - 3.0 08/17/2024 10:40 PM CDT [facility] O2 SATURATION, VENOUS 100(H) 70 - 75 % 08/17/2024 10:40 PM CDT [facility] PATIENT TEMPERATURE 37.0 Degrees C 08/17/2024 10:40 PM CDT [facility] Blood VENOUS BLOOD SPECIMEN / Unknown Venipuncture / Unknown 08/17/2024 10:27 PM CDT 08/17/2024 10:33 PM CDT Milagros Dan MD CHEMISTRY Final Result [facility] INTERNAL ZIP [phone] [place] [address] * (ABNORMAL) PRO-BNP (08/17/2024 10:27 PM CDT) PRO-BNP >70,000(H) <125 pg/mL 08/17/2024 11:25 PM CDT [facility] Blood BLOOD SPECIMEN / Unknown Venipuncture / Unknown 08/17/2024 10:27 PM CDT 08/17/2024 10:31 PM CDT Narrative [facility] - 08/17/2024 11:25 PM CDT [...] Milagros Dan MD SEND OUTS Final Result [facility] INTERNAL ZIP [address] [address] [place] [address] * CT CHEST W (08/17/2024 2:02 PM [...] care provider. EXAM: CT CHEST W LOCATION: [facility] DATE: 08/17/2024 INDICATION: Pneumonia, complication suspected, xray [...] care provider. EXAM: CT CHEST W LOCATION: [facility] DATE: 08/17/2024 INDICATION: Pneumonia, complication suspected, xray [...] 7.35 - 7.45 08/17/2024 12:47 PM CDT [facility] PCO2, ARTERIAL 47 35 - 48 mmHg 08/17/2024 12:47 PM CDT [facility] PO2, ARTERIAL 85 83 - 108 mmHg 08/17/2024 12:47 PM CDT [facility] HCO3, ARTERIAL 30(H) 21 - 28 mmol/L 08/17/2024 12:47 PM CDT [facility] BASE EXCESS, ARTERIAL 5.0(H) -2.0 - 3.0 08/17/2024 12:47 PM CDT [facility] O2 SATURATION, ARTERIAL 96 94 - 98 % 08/17/2024 12:47 PM CDT [facility] SODIUM, POCT 08/17/2024 12:47 PM CDT [facility] Comment:Unable to determine. POTASSIUM, POCT 12:47 PM CDT [facility] Comment:Unable to determine. INSPIRED O2,ISTAT 3.0 08/17/2024 12:47 PM CDT [facility] PATIENT TEMPERATURE 37.0 Degrees C 08/17/2024 12:47 PM CDT [facility] MELINDA'S TEST Not Given 08/17/2024 12:47 PM CDT [facility] SAMPLE TYPE,ISTAT BLOOD GAS ARTERIAL 08/17/2024 12:47 PM CDT [facility] Blood BLOOD SPECIMEN / Unknown 08/17/2024 12:46 PM CDT 08/17/2024 12:47 PM CDT us Brie Morelos MD CHEMISTRY Final R esult [facility] INTERNAL ZIP [phone] [place] [address] * LEGIONELLA AND PNEUMOCOCCAL URINE ANTIGEN (08/17/2024 12:25 PM CDT) STREP PNEUMO ANTIGEN Negative 08/17/2024 4:56 PM CDT [facility] Comment:Presumptive negative for pneumococcal pneumonia, suggesting no current or recent pneumococcal infection. Infection due to S. pneumoniae cannot be ruled out since the antigen present in the sample may be below the detection limit of the test. LEGIONELLA ANTIGEN Negative 08/17/2024 4:56 PM CDT [facility] Comment:Negative for L.pneum ophila serogroup [...] Brie Morelos MD MICROBIOLOGY Final R esult [facility] [address] [place] [address], [place] * XR CHEST 2 VIEWS PA [...] CHEST 2 VIEWS PA AND LATERAL LOCATION: [facility] DATE: 08/17/2024 INDICATION: Dyspnea. COMPARISON: CT 05/24/2024, [...] CHEST 2 VIEWS PA AND LATERAL LOCATION: [facility] DATE: 08/17/2024 INDICATION: Dyspnea. COMPARISON: CT 05/24/2024, [...] * SCAN CORRESP-EKG RESULTS (06/28/2024 2:48 PM COORDINATOR [employer]) Narrative 06/28/2024 2:48 PM COORDINATOR [employer] Ordered by an unspecified provider. us Other Clinical Staff OTHER Final Resul t * SCAN-CARDIAC STRIP (06/26/2024 7:56 AM COORDINATOR [employer]) us Scanner OTHER Final Result * PLATELET COUNT (06/26/2024 7:16 AM COORDINATOR [employer]) PLATELET COUNT 265 140 - 440 thou/cu mm 06/26/2024 7:41 AM COORDINATOR [employer] [facility] MPV 10.3 6.5 - 11.0 fL 06/26/2024 7:41 AM COORDINATOR [employer] [facility] Blood BLOOD SPECIMEN / Unknown Venipuncture / Unknown 06/26/2024 7:16 AM COORDINATOR [employer] 06/26/2024 7:34 AM COORDINATOR [employer] Arun Martinez MD HEMATOLOGY Final Res ult Performing Organization Address City/[facility]/ZIP Co de Phone Number [facility] SENDOUT INTERNAL ZIP [address] [place] [phone] * (ABNORMAL) SODIUM (06/26/2024 7:16 AM COORDINATOR [employer]) SODIUM 135(L) 136 - 145 mmol/L 06/26/2024 8:00 AM COORDINATOR [employer] [facility] Blood BLOOD SPECIMEN / Unknown Venipuncture / Unknown 06/26/2024 7:16 AM COORDINATOR [employer] 06/26/2024 7:34 AM COORDINATOR [employer] Result [facility] Arun Martinez MD CHEMISTRY Final Res ult Performing Organization Address [facility]/ZIP Co de Phone Number [facility] SENDOUT INTERNAL ZIP [address] [place] [address] * SCAN-CARDIAC STRIP (06/25/2024 8:41 PM COORDINATOR [employer]) us Scanner OTHER Final Result * (ABNORMAL) ANTI HCV (04/28/2024 5:01 AM COORDINATOR [employer]) HEPATITIS C ANTIBODY Reactive, Preliminary Positive(A) Non-React odette 04/28/2024 9:46 AM COORDINATOR [employer] [facility] Comment:Presumptive evidence of antibodies to HCV. Reflexed to HCV RNA Quant (See separate report). Blood BLOOD SPECIMEN / Unknown Venipuncture / Unknown 04/28/2024 5:01 AM COORDINATOR [employer] 04/28/2024 5:17 AM COORDINATOR [employer] us Zaheer Valerio MD SEND OUTS Final Result [facility] [address] [place] [phone], from Last 3 Months or Most Recently Relevant to Health Maintenance Insurance [facility] Advance Directives * Full Code (Latest Code [...] Code Status Discussion: Reviewed Preferences Care Teams Tapper Supervisor Relationship Specialty Start Date End Date [place] [address] PCP - General Family Practice 06/18/23 Pcp, No . 05/18/23 Merari Jenkins, RN [address] [place] [id number] Nurse Navigator - Oncology Registered Nurse 08/27/24
[2024-09-05] MEDS: fentaNYL 100 MCG/2 ML inj 50 MCG IVP (06:51)
[2024-09-05] MEDS: METHYLPREDNISOLONE SOD SUCC 62.5 MG/ML (125) 125 MG IVP (06:52)
[2024-09-05] MEDS: FUROSEMIDE 10 MG/ML inj 40 MG IVP (06:52)
[2024-09-05] MEDS: KETAMINE HCL 100 MG/ML inj 60 MG IVP (06:54)
[2024-09-05] MEDS: ROCURONIUM BROMIDE 10 MG/ML inj 50 MG IV (06:55)
[2024-09-05 07:16] LABS: Troponin, Point-of-Care* 1.26 ng/ml (0.01-0.04)
--- NOTE | 2024-09-05 08:07 | ED.GENADULT ---
HPI - General Adult General Chief complaint: Shortness of Breath/Dyspnea Stated complaint: Shortness of Breath Time Seen by Provider: 09/05/24 05:53 Source: patient and EMS Mode of arrival: EMS History of Present Illness HPI narrative: 63-year-old male patient well known to our emergency department team presents to the ED by EMS because of dyspnea. Patient has a history of lung cancer, flash pulmonary edema, terrible coronary artery disease, congestive heart failure and is on dialysis. He denies missing any dialysis sessions. It sounds as though after his last transfer and hospitalization, he is now on home oxygen though he cannot recall the amount. He has been intubated at least 3 times in the last couple of months for his pulmonary edema and respiratory failure. He does wish to be full code and tubes again upon my conversation with him. EMS unfortunately had much difficulty getting a line but did administer to nitroglycerin pills which unfortunately did not help his shortness of breath. They placed him on supplemental oxygen on oxygen saturations have gone from the low 70s to the high 70s with this intervention. He is cantankerous as usual but denies any specific new trauma, injury or fever by do not trusses answering all questions fully as he resists every intervention and question. Patient gives no additional history but EMS recalls transporting him to [place] within the last couple of weeks. Past medical history is notable for the heart failure, coronary artery disease, COPD, lung cancer as above. Unfortunately due to his critical state, and unable to review any computer records urgently. He is unable to list his medications. Allergies are quickly reviewed and non pertinent today. Related Data Home Medications ?Medication ?Instructions ?Recorded ?Confirmed carvedilol 12.5 mg tablet 6.25 mg PO BID 05/18/23 08/16/24 aspirin 81 mg chewable tablet 1 tab PO DAILY 05/17/24 08/16/24 atorvastatin 40 mg tablet 40 mg PO QPM 05/17/24 08/16/24 bumetanide 2 mg tablet 2 mg PO DAILY 05/17/24 08/16/24 multivitamin with folic acid 400 1 tab PO DAILY 05/17/24 08/16/24 mcg tablet (Daily-Ernestina (with folic acid)) Allergies Allergy/AdvReac Type Severity Reaction Status Date / Time ranitidine AdvReac itch Verified 08/16/24 15:09 [facility] Medical History Altered mental status ?R41.82 - Altered mental status, unspecified (ICD-10) Non-STEMI (non-ST elevated myocardial infarction) ?I21.4 - Non-ST elevation (NSTEMI) myocardial infarction (ICD-10) Smoking ?F17.200 - Nicotine dependence, unspecified, uncomplicated (ICD-10) Alcohol use disorder ?F10.90 - Alcohol use, unspecified, uncomplicated (ICD-10) COPD (chronic obstructive pulmonary disease) ?J44.9 - Chronic obstructive pulmonary disease, unspecified (ICD-10) Coronary artery disease ?I25.10 - Atherosclerotic heart disease of [place] coronary artery without angina pectoris (ICD-10) Stage 4 chronic kidney disease ?N18.4 - Chronic kidney disease, stage 4 (severe) (ICD-10) Pulmonary hypertension ?I27.20 - Pulmonary hypertension, unspecified (ICD-10) Right heart failure ?I50.810 - Right heart failure, unspecified (ICD-10) Heart failure with reduced ejection fraction ?I50.20 - Unspecified systolic (congestive) heart failure (ICD-10) Social History Narrative: Patient apparently lives in an apartment in [place]. Smokes a pack of cigarettes a day. He has a history of alcohol abuse but current consumption is unknown. Unable to discuss plan of care or goals of care What is your current living situation?: unable to answer Problems where you live: unable to answer Problems where you live details: unknown In the past 12 months, utilities in danger of being shut off: unable to answer In past 12 months, lack of transportation kept you from medical appts, meetings, work, or getting things needed for daily living: unable to answer In the past 12 mos, have been you worried that your food would run out before you had money to buy more?: unable to answer In the past 12 mos, the food you bought just didn't last and you didn't have money to buy more?: unable to answer Highest level of school completed/degree received: don't know Smoking Status: Current every day smoker Do you use any of these nicotine containing products: None Second hand tobacco smoke exposure: Yes How often do you have a drink containing alcohol: 4 or more times a week AUDIT-C Alcohol total score: 4 Non-prescribed substance use: denies use Non-prescribed substance use details: unknown How often does anyone, including family, friends and others, physically hurt you: unable to answer How often does anyone, including family, friends and others, insult or talk down to you: unable to answer How often does anyone, including family, friends and others, threaten you with harm: unable to answer How often does anyone, including family, friends and others, scream or curse at you: unable to answer service: No Exam Narrative: Exam Narrative: Patient sitting upright, pale, diaphoretic, obvious respiratory distress. Grumpy, irritable, resists getting IV and any interventions. I do ask for clarification multiple times if he wants these performed and is willing to be a full code as he has demonstrated previously and he nods that yes he does want these interventions. Const: Vital Signs, click to edit/add: Vital Signs - 24 hr 09/05/24 05:48 09/05/24 06:06 09/05/24 06:07 Temperature 98 F Pulse Rate 124 H 127 H Pulse Rate [Pulse Oximeter] 128 H Respiratory Rate 26 H 28 H 27 H Blood Pressure 129/104 H Blood Pressure [Ri ght Upper Arm] 143/117 H Pulse Oximetry 63 L 80 L 83 L Oxygen Delivery [facility] Room Air 09/05/24 06:12 09/05/24 06:15 09/05/24 06:17 Temperature Pulse Rate 127 H 128 H Pulse Rate [Pulse Oximeter] Respiratory Rate 31 H 22 41 H Blood Pressure 113/90 H 118/106 H Blood Pressure [Ri ght Upper Arm] Pulse Oximetry 64 L 98 Oxygen Delivery [facility] 09/05/24 06:22 09/05/24 06:25 09/05/24 06:26 Temperature Pulse Rate 125 H 124 H 121 H Pulse Rate [Pulse Oximeter] Respiratory Rate 17 12 16 Blood Pressure 110/85 128/104 H 127/109 H Blood Pressure [Ri ght Upper Arm] Pulse Oximetry 99 98 99 Oxygen Delivery [facility] 09/05/24 06:30 09/05/24 06:32 09/05/24 06:34 Temperature Pulse Rate 115 H 112 H 115 H Pulse Rate [Pulse Oximeter] Respiratory Rate 16 20 20 Blood Pressure 99/84 113/98 H Blood Pressure [Ri ght Upper Arm] Pulse Oximetry 99 98 96 Oxygen Delivery Me thod 09/05/24 06:37 09/05/24 06:42 09/05/24 06:45 Temperature Pulse Rate 114 H 112 H 114 H Pulse Rate [Pulse Oximeter] Respiratory Rate 26 H 18 16 Blood Pressure 127/100 H 132/106 H Blood Pressure [Ri ght Upper Arm] Pulse Oximetry 92 80 L 82 L Oxygen Delivery Nc thod 09/05/24 06:47 09/05/24 06:52 09/05/24 06:57 Temperature Pulse Rate 106 H 112 H 124 H Pulse Rate [Pulse Oximeter] Respiratory Rate 16 21 13 Blood Pressure 124/111 H 117/100 H 99/61 Blood Pressure [Ri ght Upper Arm] Pulse Oximetry 85 L 87 L 76 L Oxygen Delivery [facility] 09/05/24 07:00 09/05/24 07:02 09/05/24 07:29 Temperature Pulse Rate 120 H 126 H Pulse Rate [Pulse Oximeter] Respiratory Rate 8 L 13 Blood Pressure 105/90 H Blood Pressure [Ri ght Upper Arm] Pulse Oximetry 75 L 80 L 78 L Oxygen Delivery Me thod Intubated General appearance: frail appearing and diaphoretic Nutritional appearance: cachectic HENMT: Common normals: normocephalic Head and scalp: normocephalic Face and sinus: normal facial exam Other: Poor dentition, no obvious aphthous ulcers or redness inside the mouth. Membranes are moist initially. Eye: Common normals: PERRL Pupil: PERRL Neck & C-Spine: Common normals: full ROM and no lymphadenopathy Resp: Other: Decreased breath sounds throughout. Poor movement overall, tachypnea. Cardio: Other: Tachycardic with regular rate. Difficult to auscultate heart sounds, mostly distant GI: Common normals: Normal to inspection, nondistended, normoactive bowel sounds present, soft to palpation, non-tender, no hepatosplenomegaly and no masses Palpation: soft and no hepatosplenomegaly Extremity: Other: Dialysis fistula in left arm, no obvious pitting edema, joint swelling or areas of redness to the skin on the extremities. Neuro: Other: Irritable, questioning delirium. Does move all extremities easily and symmetrically in can sit up without support. Psych: Appearance: unkempt Judgement: limited Other: Irritable, fair insight. Skin: Common normals: no rashes or lesions noted General skin exam: no rashes or lesions noted Course Course ED Course: Critically ill 63-year-old male with history of lung cancer, terrible heart failure and coronary artery disease presenting with acute on chronic hypoxic respiratory failure. With much difficulty getting IV access, EMS was not able to get it all. Ultimately we were able to get a small IV. I made the decision start patient on BiPAP right away as he has responded to that with me before. With this intervention, we were able to get his sats up to the high 80s and heart rate came down to around 100 from initially 130. Chest x-ray was performed showing pulmonary edema and what looked to be ARDS. He was given DuoNeb, 80 of IM furosemide since we still did not have vascular access and then once we did have vascular access, 60 of IV Solu-Medrol. This did lead to some initial improvement in breath sounds and aeration. He was still irritable and was starting to not tolerate the mask, wanting to rip it off. I did make calls during this time of initially getting him improving on the BiPAP and patient was able to be accepted at [facility]. We were not able to get a full panel of labs but I did prioritize a venous blood gas and metabolic panel as my initial starting point. Once I was able to find placement at [facility] to the ED, we made the decision to move towards intubation. Initial labs showing severe acidosis, significant leukocytosis amongst a host of multiple other metabolic severe derangements. Procedure: Rapid sequence intubation. 18 mg of etomidate and 100 mg of succinylcholine were given IV with good sedation and paralysis. Using the glide scope, after ensuring all appropriate measures in place, I was able to easy slip a 7 0 ET tube past the cords. This was secured and we started an be bagged. With this we were able to get a sats up to the low 90s initially and heart rate stayed around 100-110. EMS had arrived at this point and were very helpful in assisting us and next steps in decision making. We discussed options for sedation drips for transport. Would plan to do probe a fall but there have ice was for ketamine as they tend to find better results with that on route. Because of this we agreed with their recommendation. He was initially given 120 of ketamine IV. This did cause reasonable initial sedation but within about 20 more minutes, while we were getting and IO line as a backup vascular access and starting to secure the patient for transport, he started having significant desaturations. We obtained a repeat chest x-ray, concerned that the tube had dislodged or that he had gotten a significant pneumothorax or ruptured bleb or some other pathology. The repeat x-ray confirmed that the tube was in pretty good placement, no major pneumothorax noted. ARDS seem to worsen but difficult to compare. Attention was then turned back to medications since it seemed like he was fighting the tube more in trying to breathe over it. He was given an additional bolus of ketamine, 50 of fentanyl. Since ARDS appear to be worsening he was also then given 125 of Solu-Medrol and 40 of IV Lasix through the IO line. It became clear that it seemed as though we were getting failure of medications through the IV site. Decision was transitioned over to the IO line where rocuronium was given and then the additional ketamine was repeated with better results. Oxygen saturations began to climb again but only to the mid 80s. Decision was made that he was going to have to be transported and this was honestly as good as we could get. Patient was packed up for transport. They did grab me out of the room just before he left indicating that his pressures have gone up, likely secondary to the ketamine. He is started on a nicardipine drip. Mr. Hernández still critically ill and I feel very grave about his overall prognosis but he is transferred to [facility] for further management of his acute respiratory failure, requesting full code status, intubated with temporary improvement in oxygen saturations, stable cardiac status but very poor prognosis. Significant acidosis, metabolic derangements are going be very difficult to treat. Critical care time of 90 minutes were spent directly caring for this patient. Vital Signs Vital signs: Initial Vital Signs Temperature 98 F 09/05/24 05:48 Temperature Source Temporal Artery Scan 09/05/24 05:48 Pulse Rate 128 H 09/05/24 05:48 Respiratory Rate 26 H 09/05/24 05:48 Blood Pressure 143/117 H 09/05/24 05:48 Blood Pressure Mean 125 H 09/05/24 05:48 Blood Pressure Position Supine 09/05/24 05:48 Pulse Oximetry 63 L 09/05/24 05:48 Oxygen Delivery Method Room Air 09/05/24 05:48 Vital Signs Temperature 98 F 09/05/24 05:48 Pulse Rate 128 H 09/05/24 05:48 Respiratory Rate 26 H 09/05/24 05:48 Blood Pressure 143/117 H 09/05/24 05:48 Pulse Oximetry 63 L 09/05/24 05:48 Oxygen Delivery Method Room Air 09/05/24 05:48 Temperature 98 F 09/05/24 05:48 Pulse Rate 126 H 09/05/24 07:02 Respiratory Rate 13 09/05/24 07:02 Blood Pressure 105/90 H 09/05/24 07:02 Pulse Oximetry 78 L 09/05/24 07:29 Oxygen Delivery Method Intubated 09/05/24 07:29 Medications Administered Medications: Discontinued Medications Generic Name Dose Route Start Last Admin Trade Name Freq PRN Reason Stop Dose Admin Albuterol 2.5 mg 09/05/24 05:54 09/05/24 06:05 Albuterol Sulfate 2.5 Mg/3 Ml Vial.Neb [facility] 09/05/24 05:55 2.5 mg ONCE ONE Administration Albuterol/Ipratropium 1 neb 09/05/24 05:54 09/05/24 06:04 Iprat-Albut 0.5-2.5 Mg/3 Ml Neb 09/05/24 05:55 1 neb ONCE ONE Administration Furosemide 80 mg 09/05/24 05:54 09/05/24 06:04 Furosemide 10 Mg/Ml Inj IM 09/05/24 05:55 80 mg ONCE ONE Administration Methylprednisolone Sodium Succinate 60 mg 09/05/24 05:54 09/05/24 06:04 Methylprednisolone Sod Succ 40 Mg/Ml IVP 09/05/24 05:55 60 mg ONCE ONE Administration Medical Decision Making Lab Data Lab results reviewed: Yes I reviewed the patient's lab results Lab results narrative: Marked leukocytosis, stable anemia, marked acidosis, remainder of metabolic derangements are similar to previous. Marked elevation in troponin as well. Labs: Lab Results 09/05/24 Range/Units 05:45 WBC 19.16 H (4.50-11.00) K/uL RBC 4.03 L (4.30-5.90) m/uL Hgb 12.6 L (13.5-17.5) gm/dL Hct 42.1 (37.0-53.0) % MCV 105 H (80-100) fL MCH 31 (26-34) pg MCHC 30 L (32-36) gm/dL RDW Coeff of Martir 15.4 (11.5-15.5) % Plt Count 289 (140-440) K/uL Neut % (Auto) 42.6 (42.0-72.0) % Lymph % (Auto) 42.7 (20-44) % Allen % (Auto) 8.4 (0.0-11.0) % Eos % (Auto) 5.2 (0.0-7.0) % Baso % (Auto) 0.6 (0.0-3.0) % Neut # (Auto) 8.20 H (1.7-7.0) K/uL Lymph # (Auto) 8.20 H (0.90-2.90) K/uL Allen # (Auto) 1.60 H (0.00-0.90) K/UL Eos # (Auto) 1.00 H (0.00-0.50) K/uL Baso # (Auto) 0.10 (0.00-0.30) K/uL Abs Immat Gran (auto) 0.10 (0.00-0.30) K/uL Imm/Tot Granulo (auto) 0.5 % Diff Slide Review Acceptable Review (Acceptable) VBG pH 7.097 L* (7.32-7.43) VBG pCO2 48 (40-50) mmHG VBG pO2 64.8 H (25-47) mmHG VBG HCO3 15 L (21-28) mmol/L Sodium 141 (135-149) mmol/L Potassium 5.9 H (3.6-5.1) mmol/L Chloride 107 (96-114) mmol/L Carbon Dioxide 16 L (20-32) mmol/L Anion Gap 18 H (7-15) mEq/L BUN 70 H (7-30) mg/dL Creatinine 7.1 H (0.5-1.5) mg/dL Estimated GFR 8 ml/min Glucose 225 H (60-115) mg/dL Lactate 3.9 H (0.5-1.9) mmol/L Calcium 8.9 (8.4-10.6) mg/dL POC Troponin I 1.26 H (0.01-0.04) ng/ml Imaging Data Chest x-ray: Attestation: I have reviewed the pertinent imaging results. My impression: Mostly severe pulmonary edema but also signs of ARDS. No obvious pneumothorax Radiologist's impression: IMPRESSION: 1. Moderate to severe pulmonary edema. 2. Suspect persistent loculated effusion versus other opacity in the dependent right hemithorax. Not well evaluated without a lateral view. Dictated by Pricilla Velásquez MD @ 09/05/2024 6:14:16 AM Critical Care Time Critical Care Time Total Critical Care Time in Minutes: 90 Discharge Plan Discharge Clinical Impression: Acute and chronic respiratory failure, Metabolic acidosis, Acute delirium, Flash pulmonary edema Patient Disposition: Xfer Other Condition: Critical Prescriptions: No Action carvedilol 12.5 mg tablet 6.25 mg PO BID atorvastatin 40 mg tablet 40 mg PO QPM aspirin 81 mg tablet,chewable 1 tab PO DAILY multivitamin with folic acid [Daily-Ernestina (with folic acid)] 400 mcg tablet 1 tab PO DAILY bumetanide 2 mg tablet 2 mg PO DAILY Stand Alone Forms: [employer] Info Instructions
== END 2024-09-05 07:00 | disposition other institution (70) ==
PROVIDERS: Emergency Provider Family Medicine
DX: J96.20 Acute and chronic respiratory failure, unspecified whether with hypoxia or hypercapnia (principal); E87.20 Acidosis, unspecified; R41.0 Disorientation, unspecified; J81.0 Acute pulmonary edema
CPT/HCPCS: 31500; 36415; 71045; 80048; 82803; 83605; 84484; 85025; 94640; 99285; 99291; 99292; J0330; J1938; J2404; J2919; J3010; J3490

== ENCOUNTER 2024-09-05 07:23 | Outpatient (CLI) | payer MEDICAID, SELFPAY | END 2024-09-05 07:24 | disposition home or self-care (01) | LOC: AMB 09-06 15:43 | PROVIDERS: Visit Provider Family Medicine | DX: J96.20 Acute and chronic respiratory failure, unspecified whether with hypoxia or hypercapnia (principal); E87.20 Acidosis, unspecified; J81.0 Acute pulmonary edema; R41.0 Disorientation, unspecified | CPT/HCPCS: A0425; A0434 ==

== ENCOUNTER 2024-10-13 07:45 | Outpatient (CLI) | payer MEDICAID, SELFPAY | END 2024-10-13 07:46 | disposition home or self-care (01) | LOC: AMB 10-14 11:25 | PROVIDERS: Visit Provider Family Medicine | DX: R06.09 Other forms of dyspnea (principal) | CPT/HCPCS: A0425; A0427 ==

== ENCOUNTER 2024-10-13 08:10 | Emergency (ER) | payer MEDICAID, SELFPAY ==
[2024-10-13] VITALS (23 sets, daily range): BP systolic 95–188; BP diastolic 47–141; PULSE 122–141; RESP 10–30; O2SAT 85–100
--- NOTE | 2024-10-13 08:09 | CRLHL7_ITS ---
For Patients: As a result of the Cures Act, medical imaging exams and procedure reports are released immediately into your electronic medical record. You may view this report before your referring provider. If you have questions, please contact your health care provider. Indication: Shortness of breath Comparison: Single-view chest September 05, 2024 Technique: Single AP view chest Findings: Interval removal of endotracheal tube. Stable right-sided dialysis catheter. Persistent pulmonary edema with superimposed airspace opacity in the right lung base and likely associated basilar pleural effusion similar to previous exam. No pneumothorax. Stable cardiac silhouette. The bony thorax is grossly intact. Impression: Interval removal of endotracheal tube. Overall, stable pulmonary edema with superimposed atelectasis versus infiltrate in the right lower lobe. Dictated by Eamon Massey MD @ 10/13/2024 8:34:59 AM (Electronically Signed)
--- OUTSIDE RECORDS SUMMARY | 2024-10-13 08:10 | XMS_ITS ---
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 Ordering Clinician Indication Dosage Frequency Signature (SIG) Comments Components Venofer 10-07 21:49: 06 Yes [id number] Number of Repeats Allowed: Frequency: One time a weekDosesO rdered: Maintenanc e Dose 50 Milligram Route: Intravenou s Mircera 10-02 05:00: 00 Yes [id number] Number of Repeats Allowed: Frequency: EVE dosing, every two weeks Fluticasone Propionate Diskus 08-25 13:48: 58 Yes Number of Repeats Allowed: Frequency: Every twelve hours Carvedilol 08-25 13:47: 29 Yes Number of Repeats Allowed: Frequency: Two times a day Aspirin 81 08-25 13:38: 41 Yes Number of Repeats Allowed: Frequency: One time a day Oxygen 08-25 13:37: 00 Yes [id number] Number of Repeats Allowed: Frequency: Every Dialysis Treatment calcitriol -15 05:00: 00 Yes [id number] Number of Repeats Allowed: Frequency: Three times a week Triphrocaps 2- 18:02: 14 Yes Number of Repeats Allowed: Frequency: One time a day Bumex 2-07 21:31: 20 Yes Number of Repeats Allowed: Frequency: One time a day heparin sodium, porcine 1-06 12:33: 36 Yes [id number] Number of Repeats Allowed: Frequency: Every Dialysis TreatmentD osesOrdere d: Hourly Dose 200 Units/Hr 1:1000 Units/mLRo [place]: Intravenou s heparin sodium, porcine 05-31 12:33: 36 Yes [id number] Number of Repeats Allowed: Frequency: Every Dialysis TreatmentD osesOrdere d: Loading Dose 1500 Units 1:1000 Units/mLRo [place]: Intravenou s Normal Saline Solution 0.9% NaCl 2023-05 22:26: 17 Yes [id number] Number of Repeats Allowed: Frequency: Pre-dialys isDosesOrd ered: Arterial Lumen 10 mL Route: Intracathe terDosesOr dered: Venous Lumen 10 mL Route: Intracathe ter Normal Saline Solution 0.9% NaCl 2023-05 22:20: 44 Yes [id number] Number of Repeats Allowed: Frequency: Post-dialy sisDosesOr dered: Arterial Lumen 10 mL Route: Intracathe terDosesOr dered: Venous Lumen 10 mL Route: Intracathe ter loperamide hydrochlori de 2023-05 06:00: 00 Yes [id number] Number of Repeats Allowed: Frequency: Every 4 hours as needed heparin sodium, porcine 2023-05 06:00: 00 Yes [id number] Number of Repeats Allowed: Frequency: Every Dialysis TreatmentD osesOrdere d: Post CVC Instillati on 1500 Units 1:1000 Units/mLRo [place]: Intracathe terDosesOr dered: Post CVC Instillati on 1500 Units 1:1000 Units/mLRo [place]: Intracathe ter acetaminoph en 2023-05 06:00: 00 Yes [id number] Number of Repeats Allowed: Frequency: Every 4 hours as needed Lipitor 2023-05 22:44: 22 Yes Number of Repeats Allowed: Frequency: Once a day, at bedtime diphenhydra [place] hydrochlori de 2023-05 22:40: 19 Yes [id number] Number of Repeats Allowed: Frequency: Every 30 minutes as needed acetaminoph en 2023-0518 22:37: 51 Yes [id number] Number of Repeats Allowed: Frequency: Every 4 hours as needed Problems Condition Name Condition Details Condition Category Status Onset Date Resolution Date Condition Entered On Date Treating Clinician Comments End-stage renal disease Problem List Item Active 2024-06-04 17:06:36 Procedures Procedure Date / Time Performed Performing Clinician Soha ce Details AV Fistula 2024-07-07 06:00:00 Access Surgeon KRYSTAL BERMUDEZ ([id number]),[place], [place] Access Site Upper Arm (Left) Central Venous Catheter (CVC)2024-04-28 06:00:00 Access Site Chest (Right) Access Use Start Date 2024-05-14 00:00:0 0 DIALYSIS TREATMENT INFORMATION Conventional Hemodialysis Date Type Treatment Start Date Treatment End Date Pre-Treatment Vitals Post-Treatment Vitals Weight Gain BFR DFR Actual UF Dialysis Access October 11, 2024 In-Ce nter Hemod ialys is Treat ment 2024-10-11 T15:31:00. 000Z 2024-10-11 T18:25:00. 000Z BP Sitting (Pre-Dialysis) 102/67 mmHg BP Sitting (Post-D ialysis ) 126/ 54 mmHg BP Standing (Pre-Dialysis) 139/50 mmHg BP Standing (P ost-Dialysis) 143/92 mmHg Sitting Heart Rate Pre-Dialysis 76 BPM Sitting Heart Rate Post-Dialysis 81 BPM Standing Heart Rate Pre-Dialysis 83 BPM Standing Heart Rate Post-Dialysis 81 BPM Temperature Pre-Dialysis 97.2 degF Temperature Post -Dialysis 98 degF October 08, 2024 In-Center Hemodialysis Treatment 9246-55-65H79:29:53.000Z 4103-04-51G65:02:57.000Z BP Sitting (Pre-Dialysis) 119/84 mmHg BP Sitting (Post-Dialysis) 155/108 mmHg Concurrent Access: falseCentral Venous Catheter (CVC) Chest (Right) ArterialAV Fistula Upper Arm (Left) Venous BP Standing (Pre-Dialysis) 129/91 mmHg BP Standing (P ost-Dialysis) 137/81 mmHg Sitting Heart Rate Pre-Dialysis 93 BPM Sitting Heart Rate Post-Dialysis 70 BPM Standing Heart Rate Pre-Dialysis 96 BPM Standing Heart Rate Post-Dialysis 76 BPM Temperature Pre-Dialysis 98 degF Temperature Post -Dialysis 97.4 degF October 06, 2024 In-Center Hemodialysis Treatment 7289-13-24E40:24:00.000Z 3707-29-21V50:59:19.000Z BP Sitting (Pre-Dialysis) 118/86 mmHg BP Sitting (Post-Dialysis) 116/86 mmHg Concurrent Access: falseCentral Venous Catheter (CVC) Chest (Right) ArterialAV Fistula Upper Arm (Left) Venous BP Standing (Pre-Dialysis) 117/92 mmHg BP Standing (P ost-Dialysis) 138/108 mmHg Sitting Heart Rate Pre-Dialysis 82 BPM Sitting Heart Rate Post-Dialysis 65 BPM Standing Heart Rate Pre-Dialysis 90 BPM Standing Heart Rate Post-Dialysis 73 BPM Temperature Pre-Dialysis 98 degF Temperature Post -Dialysis 98 degF October 04, 2024 In-Center Hemodialysis Treatment 9754-30-27U19:11:48.000Z 7446-70-18M91:38:52.000Z BP Sitting (Pre-Dialysis) 152/90 mmHg BP Sitting (Post-Dialysis) 179/88 mmHg Concurrent Access: falseCentral Venous Catheter (CVC) Chest (Right) ArterialAV Fistula Upper Arm (Left) Venous Sitting Heart Rate Pre-Dialysis 77 BPM BP Standi ng (Post-Dialysis) 130/93 mmHg Temperature Pre-Dialysis 98 degF Sitting Heart Ra te Post-Dialysis 78 BPM Standing Heart Rate Post[place] lysis 86 BPM Temperature Post-Dialysis 98 degF October 01, 2024 In-Center Hemodialysis Treatment 5960-88-13W88:24:01.000Z 2605-68-28S21:57:04.000Z BP Sitting (Pre-Dialysis) 128/100 mmHg BP Sitting (Post-Dialysis) 147/75 mmHg Concurrent Access: falseCentral Venous Catheter (CVC) Chest (Right) ArterialAV Fistula Upper Arm (Left) Venous BP Standing (Pre-Dialysis) 144/101 mmHg BP Standing (P ost-Dialysis) 138/95 mmHg Sitting Heart Rate Pre-Dialysis 100 BPM Sitting Heart Rate Post-Dialysis 81 BPM Standing Heart Rate Pre-Dialysis 99 BPM Standing Heart Rate Post-Dialysis 98 BPM Temperature Pre-Dialysis 97.4 degF Temperature Post -Dialysis 97.8 degF September 29, 2024 In-Center Hemodialysis Treatment 4777-60-98X01:09:06.000Z 0387-16-33N42:41:09.000Z BP Sitting (Pre-Dialysis) 128/82 mmHg BP Sitting (Post-Dialysis) 124/90 mmHg Concurrent Access: falseCentral Venous Catheter (CVC) Chest (Right) ArterialAV Fistula Upper Arm (Left) Venous Sitting Heart Rate Pre-Dialysis 76 BPM BP Standi ng (Post-Dialysis) 134/100 mmHg Temperature Pre-Dialysis 98 degF Sitting Heart Ra te Post-Dialysis 78 BPM Standing Heart Rate Post-[place] lysis 92 BPM Temperature Post-Dialysis 97 .4 degF September 27, 2024 In-Center Hemodialysis Treatment 2527-65-78B95:30:41.000Z 5372-09-85B35:02:45.000Z BP Sitting (Pre-Dialysis) 134/77 mmHg BP Sitting (Post-Dialysis) 151/107 mmHg Concurrent Access: falseCentral Venous Catheter (CVC) Chest (Right) ArterialAV Fistula Upper Arm (Left) Venous BP Standing (Pre-Dialysis) 147/94 mmHg BP Standing (P ost-Dialysis) 132/95 mmHg Sitting Heart Rate Pre-Dialysis 94 BPM Sitting Heart Rate Post-Dialysis 94 BPM Standing Heart Rate Pre-Dialysis 105 BPM Standing Heart Rate Post-Dialysis 93 BPM Temperature Pre-Dialysis 98.2 degF Temperature Post -Dialysis 97.5 degF September 24, 2024 In-Center Hemodialysis Treatment 8364-45-45N24:33:06.000Z 2428-33-30P17:01:09.000Z BP Sitting (Pre-Dialysis) 148/113 mmHg BP Sitting (Post-Dialysis) 151/97 mmHg Concurrent Access: falseCentral Venous Catheter (CVC) Chest (Right) ArterialAV Fistula Upper Arm (Left) Venous BP Standing (Pre-Dialysis) 131/95 mmHg BP Standing (P ost-Dialysis) 150/110 mmHg Sitting Heart Rate Pre-Dialysis 102 BPM Sitting Heart Rate Post-Dialysis 90 BPM Standing Heart Rate Pre-Dialysis 116 BPM Standing Heart Rate Post-Dialysis 110 BPM Temperature Pre-Dialysis 98.2 degF Temperature Post -Dialysis 98.2 degF September 23, 2024 In-Center Hemodialysis Treatment 9470-32-80Q45:08:16.000Z 0314-09-16X88:39:19.000Z BP Sitting (Pre-Dialysis) 132/90 mmHg BP Sitting (Post-Dialysis) 160/85 mmHg Concurrent Access: falseCentral Venous Catheter (CVC) Chest (Right) ArterialAV Fistula Upper Arm (Left) Venous BP Standing (Pre-Dialysis) 136/95 mmHg BP Standing (P ost-Dialysis) 144/98 mmHg Sitting Heart Rate Pre-Dialysis 96 BPM Sitting Heart Rate Post-Dialysis 84 BPM Standing Heart Rate Pre-Dialysis 114 BPM Standing Heart Rate Post-Dialysis 107 BPM Temperature Pre-Dialysis 98.2 degF Temperature Post -Dialysis 97.6 degF September 20, 2024 In-Center Hemodialysis Treatment 6805-69-36Q92:10:07.000Z 0959-14-71L16:43:10.000Z BP Sitting (Pre-Dialysis) 116/76 mmHg BP Sitting (Post-Dialysis) 160/110 mmHg Concurrent Access: falseCentral Venous Catheter (CVC) Chest (Right) ArterialAV Fistula Upper Arm (Left) Venous BP Standing (Pre-Dialysis) 100/53 mmHg BP Standing (P ost-Dialysis) 166/107 mmHg Sitting Heart Rate Pre-Dialysis 97 BPM Sitting Heart Rate Post-Dialysis 86 BPM Standing Heart Rate Pre-Dialysis 103 BPM Standing Heart Rate Post-Dialysis 98 BPM Temperature Pre-Dialysis 98.4 degF Temperature Post -Dialysis 97.8 degF September 17, 2024 In-Center Hemodialysis Treatment 7200-45-52A30:39:29.000Z 8778-26-79J59:16:33.000Z BP Sitting (Pre-Dialysis) 155/86 mmHg BP Sitting (Post-Dialysis) 115/81 mmHg Concurrent Access: falseCentral Venous Catheter (CVC) Chest (Right) ArterialAV Fistula Upper Arm (Left) Venous BP Standing (Pre-Dialysis) 149/82 mmHg BP Standing (P ost-Dialysis) 120/90 mmHg Sitting Heart Rate Pre-Dialysis 79 BPM Sitting Heart Rate Post-Dialysis 97 BPM Standing Heart Rate Pre-Dialysis 76 BPM Standing Heart Rate Post-Dialysis 101 BPM Temperature Pre-Dialysis 97.7 degF Temperature Post -Dialysis 98 degF September 16, 2024 In-Center Hemodialysis Treatment 5039-43-92N73:14:27.000Z 1695-76-93Z88:47:27.000Z BP Sitting (Pre-Dialysis) 157/131 mmHg BP Sitting (Post-Dialysis) 121/91 mmHg Concurrent Access: falseCentral Venous Catheter (CVC) Chest (Right) ArterialAV Fistula Upper Arm (Left) Venous BP Standing (Pre-Dialysis) 121/80 mmHg BP Standing (P ost-Dialysis) 124/93 mmHg Sitting Heart Rate Pre-Dialysis 37 BPM Sitting Heart Rate Post-Dialysis 80 BPM Standing Heart Rate Pre-Dialysis 75 BPM Standing Heart Rate Post-Dialysis 97 BPM Temperature Pre-Dialysis 97.6 degF Temperature Post -Dialysis 97.6 degF September 13, 2024 In-Center Hemodialysis Treatment 9204-85-12P55:02:09.000Z 3155-67-72K41:31:13.000Z BP Sitting (Pre-Dialysis) 135/84 mmHg BP Sitting (Post-Dialysis) 125/85 mmHg Concurrent Access: falseCentral Venous Catheter (CVC) Chest (Right) ArterialAV Fistula Upper Arm (Left) Venous BP Standing (Pre-Dialysis) 140/91 mmHg BP Standing (P ost-Dialysis) 140/85 mmHg Sitting Heart Rate Pre-Dialysis 95 BPM Sitting Heart Rate Post-Dialysis 92 BPM Standing Heart Rate Pre-Dialysis 104 BPM Standing Heart Rate Post-Dialysis 99 BPM Temperature Pre-Dialysis 97.5 degF Temperature Post -Dialysis 98 degF September 03, 2024 In-Center Hemodialysis Treatment 3202-32-40P71:34:59.000Z 3745-80-26L73:05:03.000Z BP Sitting (Pre-Dialysis) 126/83 mmHg BP Sitting (Post-Dialysis) 147/86 mmHg Concurrent Access: falseCentral Venous Catheter (CVC) Chest (Right) ArterialAV Fistula Upper Arm (Left) Venous BP Standing (Pre-Dialysis) 132/89 mmHg Sitti ng Heart Rate Post-Dialysis 71 BPM Sitting Heart Rate Pre-Dialysis 82 BPM Temperatu re Post-Dialysis 98.4 degF Standing Heart Rate Pre-Dialysis 91 BPM Temperature Pre-Dialysis 97.6 degF September 01, 2024 In-Center Hemodialysis Treatment 6220-45-43J74:12:30.000Z 5478-23-67E70:43:33.000Z BP Sitting (Pre-Dialysis) 143/78 mmHg BP Sitting (Post-Dialysis) 154/86 mmHg Concurrent Access: falseCentral Venous Catheter (CVC) Chest (Right) ArterialAV Fistula Upper Arm (Left) Venous Sitting Heart Rate Pre-Dialysis 76 BPM BP Standi ng (Post-Dialysis) 153/90 mmHg Temperature Pre-Dialysis 98 degF Sitting Heart Ra te Post-Dialysis 62 BPM Standing Heart Rate Post-[place] lysis 75 BPM Temperature Post-Dialysis 97 .6 degF August 30, 2024 In-Center Hemodialysis Treatment 6805-23-33O04:33:03.000Z 0048-27-75C38:05:07.000Z BP Sitting (Pre-Dialysis) 121/84 mmHg BP Sitting (Post-Dialysis) 151/93 mmHg Concurrent Access: falseCentral Venous Catheter (CVC) Chest (Right) ArterialAV Fistula Upper Arm (Left) Venous BP Standing (Pre-Dialysis) 117/59 mmHg BP Standing (P ost-Dialysis) 167/90 mmHg Sitting Heart Rate Pre-Dialysis 94 BPM Sitting Heart Rate Post-Dialysis 85 BPM Standing Heart Rate Pre-Dialysis 104 BPM Standing Heart Rate Post-Dialysis 90 BPM Temperature Pre-Dialysis 97.6 degF Temperature Post -Dialysis 98.1 degF August 27, 2024 In-Center Hemodialysis Treatment 0762-25-26N58:35:08.000Z 0497-07-24D79:06:12.000Z BP Sitting (Pre-Dialysis) 81/38 mmHg BP Sitting (Post-Dialysis) 159/85 mmHg Concurrent Access: falseCentral Venous Catheter (CVC) Chest (Right) ArterialAV Fistula Upper Arm (Left) Venous Sitting Heart Rate Pre-Dialysis 84 BPM BP Standing (Post-Dialysis) 153/109 mmHg Temperature Pre-Dialysis 97.9 degF Sitting Heart Ra te Post-Dialysis 79 BPM Standing Heart R ate Post-Dialysis 99 BPM Temperature Post-Dialysis 98 .3 degF August 25, 2024 In-Center Hemodialysis Treatment [id number]:17:37.000Z 0044-32-19T35:48:40.000Z BP Sitting (Pre-Dialysis) 127/90 mmHg BP Sitting (Post-Dialysis) 142/96 mmHg Concurrent Access: falseCentral Venous Catheter (CVC) Chest (Right) ArterialAV Fistula Upper Arm (Left) Venous BP Standing (Pre-Dialysis) 130/93 mmHg BP Standing (P ost-Dialysis) 150/91 mmHg Sitting Heart Rate Pre-Dialysis 83 BPM Sitting Heart Rate Post-Dialysis 74 BPM Standing Heart Rate Pre-Dialysis 92 BPM Standing Heart Rate Post-Dialysis 84 BPM Temperature Pre-Dialysis 97.6 degF Temperature Post -Dialysis 98 degF August 16, 2024 In-Center Hemodialysis Treatment 5588-18-98V52:30:21.000Z 2793-66-65W48:08:24.000Z BP Sitting (Pre-Dialysis) 140/90 mmHg BP Sitting (Post-Dialysis) 161/107 mmHg Concurrent Access: falseCentral Venous Catheter (CVC) Chest (Right) ArterialAV Fistula Upper Arm (Left) Venous BP Standing (Pre-Dialysis) 149/93 mmHg Sitti ng Heart Rate Post-Dialysis 97 BPM Sitting Heart Rate Pre-Dialysis 73 BPM Temperatu re Post-Dialysis 97.9 degF Standing Heart Rate Pre-Dialysis 83 BPM Temperature Pre-Dialysis 97.6 degF August 13, 2024 In-Center Hemodialysis Treatment 3433-87-33E41:36:31.000Z 3412-19-10I96:10:36.000Z BP Sitting (Pre-Dialysis) 124/88 mmHg BP Sitting (Post-Dialysis) 109/89 mmHg Concurrent Access: falseCentral Venous Catheter (CVC) Chest (Right) ArterialAV Fistula Upper Arm (Left) Venous BP Standing (Pre-Dialysis) 139/49 mmHg BP Standing (P ost-Dialysis) 124/83 mmHg Sitting Heart Rate Pre-Dialysis 82 BPM Sitting Heart Rate Post-Dialysis 72 BPM Standing Heart Rate Pre-Dialysis 78 BPM Standing Heart Rate Post-Dialysis 80 BPM Temperature Pre-Dialysis 97.9 degF Temperature Post -Dialysis 97.6 degF August 11, 2024 In-Center Hemodialysis Treatment 2830-91-79C76:31:42.000Z 6893-03-27W44:01:46.000Z BP Sitting (Pre-Dialysis) 96/73 mmHg BP Sitting (Post-Dialysis) 127/93 mmHg Concurrent Access: falseCentral Venous Catheter (CVC) Chest (Right) ArterialAV Fistula Upper Arm (Left) Venous BP Standing (Pre-Dialysis) 111/60 mmHg BP Standing (P ost-Dialysis) 151/97 mmHg Sitting Heart Rate Pre-Dialysis 104 BPM Sitting Heart Rate Post-Dialysis 88 BPM Standing Heart Rate Pre-Dialysis 99 BPM Standing Heart Rate Post-Dialysis 87 BPM Temperature Pre-Dialysis 98.4 degF Temperature Post -Dialysis 98.1 degF August 09, 2024 In-Center Hemodialysis Treatment 6055-93-45U54:38:11.000Z 9895-70-63L42:06:14.000Z BP Sitting (Pre-Dialysis) 146/103 mmHg BP Sitting (Post-Dialysis) 141/94 mmHg Concurrent Access: falseCentral Venous Catheter (CVC) Chest (Right) ArterialAV Fistula Upper Arm (Left) Venous BP Standing (Pre-Dialysis) 150/101 mmHg BP Standing (P ost-Dialysis) 140/65 mmHg Sitting Heart Rate Pre-Dialysis 94 BPM Sitting Heart Rate Post-Dialysis 79 BPM Standing Heart Rate Pre-Dialysis 85 BPM Standing Heart Rate Post-Dialysis 78 BPM Temperature Pre-Dialysis 97.4 degF Temperature Post -Dialysis 97.9 degF August 06, 2024 In-Center Hemodialysis Treatment 2731-68-67R75:16:20.000Z 1223-93-68N32:50:24.000Z BP Sitting (Pre-Dialysis) 118/79 mmHg BP Sitting (Post-Dialysis) 156/102 mmHg Concurrent Access: falseCentral Venous Catheter (CVC) Chest (Right) ArterialAV Fistula Upper Arm (Left) Venous BP Standing (Pre-Dialysis) 108/71 mmHg BP Standing (P ost-Dialysis) 154/101 mmHg Sitting Heart Rate Pre-Dialysis 78 BPM Sitting Heart Rate Post-Dialysis 74 BPM Standing Heart Rate Pre-Dialysis 81 BPM Standing Heart Rate Post-Dialysis 89 BPM Temperature Pre-Dialysis 98.2 degF Temperature Post -Dialysis 96.8 degF August 05, 2024 In-Center Hemodialysis Treatment 4082-84-17N09:32:36.000Z 0158-41-18P07:33:36.000Z BP Sitting (Pre-Dialysis) 120/87 mmHg BP Sitting (Post-Dialysis) 157/115 mmHg Concurrent Access: falseCentral Venous Catheter (CVC) Chest (Right) ArterialAV Fistula Upper Arm (Left) Venous Sitting Heart Rate Pre-Dialysis 76 BPM BP Standing (Post-Dialysis) 164/112 mmHg Temperature Pre-Dialysis 97.3 degF Sitting Heart Ra te Post-Dialysis 95 BPM Standing Heart R ate Post-Dialysis 90 BPM Temperature Post-Dialysis 96 .8 degF August 02, 2024 In-Center Hemodialysis Treatment 0216-22-24W63:20:00.000Z 2538-41-12U57:51:02.000Z BP Sitting (Pre-Dialysis) 136/88 mmHg BP Sitting (Post-Dialysis) 148/95 mmHg Concurrent Access: falseCentral Venous Catheter (CVC) Chest (Right) ArterialAV Fistula Upper Arm (Left) Venous BP Standing (Pre-Dialysis) 123/82 mmHg BP Standing (P ost-Dialysis) 119/90 mmHg Sitting Heart Rate Pre-Dialysis 63 BPM Sitting Heart Rate Post-Dialysis 80 BPM Standing Heart Rate Pre-Dialysis 64 BPM Standing Heart Rate Post-Dialysis 89 BPM Temperature Pre-Dialysis 97.6 degF Temperature Post -Dialysis 97.5 degF July 30, 2024 In-Center Hemodialysis Treatment 9861-78-18L90:14:47.000Z 7495-35-57N37:47:51.000Z BP Sitting (Pre-Dialysis) 122/68 mmHg BP Sitting (Post-Dialysis) 142/66 mmHg Concurrent Access: falseCentral Venous Catheter (CVC) Chest (Right) ArterialAV Fistula Upper Arm (Left) Venous BP Standing (Pre-Dialysis) 117/76 mmHg BP Standing (P ost-Dialysis) 114/61 mmHg Sitting Heart Rate Pre-Dialysis 66 BPM Sitting Heart Rate Post-Dialysis 48 BPM Standing Heart Rate Pre-Dialysis 71 BPM Standing Heart Rate Post-Dialysis 67 BPM Temperature Pre-Dialysis 97.6 degF Temperature Post -Dialysis 97.3 degF July 26, 2024 In-Center Hemodialysis Treatment 3953-28-67U25:29:41.000Z 0216-85-57G65:41:11.000Z BP Sitting (Pre-Dialysis) 145/80 mmHg Concurrent Access: falseCentral Venous Catheter (CVC) Chest (Right) Arterial BP Standing (Pre-Dialysis) 121/61 mmHg Sitting Heart Rate Pre-Dialysis 87 BPM Standing Heart Rate Pre-Dialysis 87 BPM Temperature Pre-Dialysis 97.4 degF July 23, 2024 In-Center Hemodialysis Treatment 1940-07-22F10:23:07.000Z 9367-92-99D29:54:11.000Z BP Sitting (Pre-Dialysis) 128/87 mmHg BP Sitting (Post-Dialysis) 142/88 mmHg Concurrent Access: falseCentral Venous Catheter (CVC) Chest (Right) ArterialAV Fistula Upper Arm (Left) Venous Sitting Heart Rate Pre-Dialysis 93 BPM BP Standing (Post-Dialysis) 125/90 mmHg Temperature Pre-Dialysis 97.4 degF Sitting Heart Ra te Post-Dialysis 76 BPM Standing Heart Rate Post-[place] lysis 88 BPM Temperature Post-Dialysis 97 .6 degF July 21, 2024 In-Center Hemodialysis Treatment 8664-29-58R56:49:49.000Z 0560-90-37K33:17:53.000Z BP Sitting (Pre-Dialysis) 106/76 mmHg BP Sitting (Post-Dialysis) 124/74 mmHg Concurrent Access: falseCentral Venous Catheter (CVC) Chest (Right) ArterialAV Fistula Upper Arm (Left) Venous BP Standing (Pre-Dialysis) 163/78 mmHg BP Standing (P ost-Dialysis) 125/87 mmHg Sitting Heart Rate Pre-Dialysis 72 BPM Sitting Heart Rate Post-Dialysis 61 BPM Standing Heart Rate Pre-Dialysis 72 BPM Standing Heart Rate Post-Dialysis 78 BPM Temperature Pre-Dialysis 97.2 degF Temperature Post -Dialysis 97.2 degF July 19, 2024 In-Center Hemodialysis Treatment 2753-88-80A40:27:46.000Z 5341-47-05U68:59:49.000Z BP Sitting (Pre-Dialysis) 104/53 mmHg BP Sitting (Post-Dialysis) 100/75 mmHg Concurrent Access: falseCentral Venous Catheter (CVC) Chest (Right) ArterialAV Fistula Upper Arm (Left) Venous BP Standing (Pre-Dialysis) 97/62 mmHg BP Standing (P ost-Dialysis) 114/82 mmHg Sitting Heart Rate Pre-Dialysis 72 BPM Sitting Heart Rate Post-Dialysis 86 BPM Standing Heart Rate Pre-Dialysis 88 BPM Standing Heart Rate Post-Dialysis 90 BPM Temperature Pre-Dialysis 98.2 degF Temperature Post -Dialysis 98.1 degF July 06, 2024 In-Center Hemodialysis Treatment 2022-97-28R91:55:06.000Z 8022-88-47Q42:33:45.000Z BP Sitting (Pre-Dialysis) 118/50 mmHg BP Sitting (Post-Dialysis) 138/94 mmHg Concurrent Access: falseCentral Venous Catheter (CVC) Chest (Right) Arterial BP Standing (Pre-Dialysis) 118/50 mmHg BP Standing (P ost-Dialysis) 165/99 mmHg Sitting Heart Rate Pre-Dialysis 61 BPM Sitting Heart Rate Post-Dialysis 73 BPM Standing Heart Rate Pre-Dialysis 71 BPM Standing Heart Rate Post-Dialysis 67 BPM Temperature Pre-Dialysis 97.3 degF Temperature Post -Dialysis 98 degF July 05, 2024 In-Center Hemodialysis Treatment 0888-19-82F48:24:39.000Z 1160-20-94X31:59:43.000Z BP Sitting (Pre-Dialysis) 124/83 mmHg BP Sitting (Post-Dialysis) 164/101 mmHg Concurrent Access: falseCentral Venous Catheter (CVC) Chest (Right) Arterial BP Standing (Pre-Dialysis) 131/84 mmHg BP Standing (P ost-Dialysis) 176/93 mmHg Sitting Heart Rate Pre-Dialysis 88 BPM Sitting Heart Rate Post-Dialysis 80 BPM Standing Heart Rate Pre-Dialysis 101 BPM Standing Heart Rate Post-Dialysis 89 BPM Temperature Pre-Dialysis 97.9 degF Temperature Post -Dialysis 98 degF July 02, 2024 In-Center Hemodialysis Treatment 9949-70-21Q41:31:00.000Z 6016-09-96V10:36:24.000Z BP Sitting (Pre-Dialysis) 104/75 mmHg BP Sitting (Post-Dialysis) 108/70 mmHg Concurrent Access: falseCentral Venous Catheter (CVC) Chest (Right) Arterial BP Standing (Pre-Dialysis) 107/70 mmHg BP Standing (P ost-Dialysis) 121/99 mmHg Sitting Heart Rate Pre-Dialysis 73 BPM Sitting Heart Rate Post-Dialysis 74 BPM Standing Heart Rate Pre-Dialysis 79 BPM Standing Heart Rate Post-Dialysis 85 BPM Temperature Pre-Dialysis 97.4 degF Temperature Post -Dialysis 97.4 degF June 30, 2024 In-Center Hemodialysis Treatment 1148-91-11X35:17:22.000Z 2840-95-45K99:50:25.000Z BP Sitting (Pre-Dialysis) 110/78 mmHg BP Sitting (Post-Dialysis) 142/56 mmHg Concurrent Access: falseCentral Venous Catheter (CVC) Chest (Right) Arterial BP Standing (Pre-Dialysis) 96/73 mmHg BP Standing (P ost-Dialysis) 144/83 mmHg Sitting Heart Rate Pre-Dialysis 79 BPM Sitting Heart Rate Post-Dialysis 73 BPM Standing Heart Rate Pre-Dialysis 89 BPM Standing Heart Rate Post-Dialysis 85 BPM Temperature Pre-Dialysis 97.3 degF Temperature Post -Dialysis 97.4 degF June 28, 2024 In-Center Hemodialysis Treatment 3692-72-59C20:38:48.000Z 3356-62-34O87:00:51.000Z BP Sitting (Pre-Dialysis) 150/87 mmHg BP Sitting (Post-Dialysis) 115/72 mmHg Concurrent Access: falseCentral Venous Catheter (CVC) Chest (Right) Arterial BP Standing (Pre-Dialysis) 98/51 mmHg BP Standing (P ost-Dialysis) 118/65 mmHg Sitting Heart Rate Pre-Dialysis 83 BPM Sitting Heart Rate Post-Dialysis 70 BPM Standing Heart Rate Pre-Dialysis 90 BPM Standing Heart Rate Post-Dialysis 79 BPM Temperature Pre-Dialysis 97.2 degF Temperature Post -Dialysis 97.5 degF June 22, 2024 In-Center Hemodialysis Treatment [id number]:05:49.000Z [id number]:33:49.000Z BP Sitting (Pre-Dialysis) 142/92 mmHg BP Sitting (Post-Dialysis) 121/84 mmHg Concurrent Access: falseCentral Venous Catheter (CVC) Chest (Right) Arterial BP Standing (Pre-Dialysis) 140/97 mmHg Sitti ng Heart Rate Post-Dialysis 70 BPM Sitting Heart Rate Pre-Dialysis 83 BPM Temperatu re Post-Dialysis 98.2 degF Standing Heart Rate Pre-Dialysis 98 BPM Temperature Pre-Dialysis 97.8 degF June 21, 2024 In-Center Hemodialysis Treatment [id number]:30:19.000Z [id number]:13:23.000Z BP Sitting (Pre-Dialysis) 98/64 mmHg BP Sitting [...] degF June 18, 2024 In-Center Hemodialysis Treatment [id number]:44:28.000Z [id number]:17:33.000Z BP Sitting (Pre-Dialysis) 145/103 mmHg BP Sitting [...] degF June 16, 2024 In-Center Hemodialysis Treatment [id number]:41:56.000Z [id number]:11:59.000Z BP Sitting (Pre-Dialysis) 141/94 mmHg BP Sitting [...] degF June 14, 2024 In-Center Hemodialysis Treatment 3060-99-28P78:22:18.000Z 7834-82-03U75:02:22.000Z BP Sitting (Pre-Dialysis) 128/98 mmHg BP Sitting [...] degF June 11, 2024 In-Center Hemodialysis Treatment 2934-30-90S63:59:32.000Z 7932-46-40C30:00:35.000Z BP Sitting (Pre-Dialysis) 178/95 mmHg BP Sitting [...] degF June 09, 2024 In-Center Hemodialysis Treatment 7034-88-35Z10:27:58.000Z [id number]:02:01.000Z BP Sitting (Pre-Dialysis) 105/47 mmHg BP Sitting [...] degF June 07, 2024 In-Center Hemodialysis Treatment [id number]:34:25.000Z [id number]:08:29.000Z BP Sitting (Pre-Dialysis) 200/113 mmHg BP Sitting [...] degF June 04, 2024 In-Center Hemodialysis Treatment [id number]:24:34.000Z 3506-61-42M53:55:37.000Z BP Sitting (Pre-Dialysis) 175/99 mmHg BP Sitting [...] degF June 02, 2024 In-Center Hemodialysis Treatment 2403-79-05J25:01:02.000Z 8702-85-78R96:34:06.000Z BP Sitting (Pre-Dialysis) 129/90 mmHg BP Sitting [...] degF May 31, 2024 In-Center Hemodialysis Treatment 6396-07-15X07:10:47.000Z [id number]:42:50.000Z BP Sitting (Pre-Dialysis) 160/87 mmHg BP Sitting [...] degF May 28, 2024 In-Center Hemodialysis Treatment [id number]:07:51.000Z [id number]:13:54.000Z BP Sitting (Pre-Dialysis) 152/85 mmHg BP Sitting [...] degF May 14, 2024 In-Center Hemodialysis Treatment [id number]:36:44.000Z [id number]:10:48.000Z BP Sitting (Pre-Dialysis) 197/110 mmHg BP Sitting [...] Order Order Date/Time Observations In-Center Hemodialysis Treatment July 242024 Target Weight 54 kg Dialysate Flow Rate 500 mL/min Blood Flow Rate 350 mL/min Treatment Time 210 min(total) Max UF Rate 13 mL/kg/hr Base Sodium Dialysate Base Sodium 138 mE q/L dialysate_temp 36 C BiCarb Dialysate BiCarbonate 32 mEq/L Access Concurrent No Arterial Access Central Venous [facility] ter (CVC) (Chest (Right)) Venous Access Central Venous [facility] ter (CVC) (Chest (Right)) Dialyzer Nipro Elisio 17H 145 5 [email or web address] Dialysate Bath Potassium Potassium 2 mEq /L Dialysate Bath Calcium Calcium 2.5 mEq/L Results Adequacy Description Draw Date Result/Unit Status Ref Range Result Comments spKt/V 2024-10-01 05:28:53 1.93 F BLOOD FLOW-QWB 2024-10-01 05:28:53 342 F TOTAL HOURS/WEEK DIALYSIS 2024-10-01 05:28:53 13 hrs F nPCR 2024-10-01 05:28:53 1.45 G/KG/D F TBW ([facility]) 2024-10-01 05:28:53 33.16 Liters F LENGTH OF DIALYSIS 2024-10-01 05:28:53 209 min F HEIGHT IN INCHES 2024-10-01 05:28:53 69 Inches F Total Kt/V 2024-10-01 05:28:53 N/A F Std Renal KT/V 2024-10-01 05:28:53 F Dialyzer MARTHA 2024-10-01 05:28:53 1455 Calc F CURRENT KRU 2024-10-01 05:28:53 F stdKT/V Total 2024-10-01 05:28:53 3.37 F WEIGHT - POST DAY 1 2024-10-01 05:28:53 53.9 kg F stdKt/V (DIAL) 2024-10-01 05:28:53 3.37 F PATIENT AGE 2024-10-01 05:28:53 64 Years F WEIGHT - PRE DAY 1 2024-10-01 05:28:53 55.3 kg F URR% 2024-10-01 05:28:53 77 % F AMPUTATE FACTOR 2024-10-01 05:28:53 0 F eKt/V 2024-10-01 05:28:53 1.62 F Residual kt/v 2024-10-01 05:28:53 N/A F VT (KT/V TX VOL) 2024-10-01 05:28:53 27.9 L F PRESCRIBED DAYS/WEEK 2024-10-01 05:28:53 3 Day/Wk F VM (KT/V MEAN VOL) 2024-10-01 05:28:53 29.3 F KT/V PRESCRIBED 2024-10-01 05:28:53 1.95 F WEIGHT (KG) 2024-10-01 05:28:53 54 kg F BSA [place] 2024-10-01 05:28:53 1.65 sq m F DIALYZER FLOW-QD 2024-10-01 05:28:53 500 mL/min F Urea nitrogen [Mass/volume] in Serum or Plasma --post dialysis 2024-10-01 04:57:20 7 mg/dL F 9.0-23.0 Creatinine [Mass/volume] in Serum or Plasma 2024-10-01 03:34:49 6.51 mg/dL F 0.7-1.3 Urea nitrogen [Mass/volume] in Serum or Plasma 2024-10-01 03:34:49 31 mg/dL F 9.0-23.0 Creatinine [Mass/volume] in Serum or Plasma 2024-09-29 19:22:16 F RECOLLECT - OUTDATED SPECIMEN Residual kt/v 2024-09-20 15:21:56 F KT/V PRESCRIBED 2024-09-20 15:21:56 1.98 F CURRENT KRU 2024-09-20 15:21:56 F WEIGHT - POST DAY 1 2024-09-20 15:21:56 54.1 kg F Total Kt/V 2024-09-20 15:21:56 1.85 F nPCR 2024-09-20 15:21:56 0.54 G/KG/D F LENGTH OF DIALYSIS 2024-09-20 15:21:56 212 min F WEIGHT - PRE DAY 1 2024-09-20 15:21:56 56.2 kg F Std Renal KT/V 2024-09-20 15:21:56 N/A F DIALYZER FLOW-QD 2024-09-20 15:21:56 500 mL/min F PRESCRIBED DAYS/WEEK 2024-09-20 15:21:56 3 Day/Wk F VM (KT/V MEAN VOL) 2024-09-20 15:21:56 29.8 F HEIGHT IN INCHES 2024-09-20 15:21:56 69 Inches F Dialyzer MARTHA 2024-09-20 15:21:56 1455 Calc F TOTAL HOURS/WEEK DIALYSIS 2024-09-20 15:21:56 7 hrs F eKt/V 2024-09-20 15:21:56 1.56 F BSA [place] 2024-09-20 15:21:56 1.65 sq m F VT (KT/V TX VOL) 2024-09-20 15:21:56 29.1 L F stdKT/V Total 2024-09-20 15:21:56 N/A F WEIGHT (KG) 2024-09-20 15:21:56 54 kg F AMPUTATE FACTOR 2024-09-20 15:21:56 0 F PATIENT AGE 2024-09-20 15:21:56 64 Years F URR% 2024-09-20 15:21:56 80 % F BLOOD FLOW-QWB 2024-09-20 15:21:56 333 F stdKt/V (DIAL) 2024-09-20 15:21:56 N/A F spKt/V 2024-09-20 15:21:56 1.85 F TBW ([facility]) 2024-09-20 15:21:56 33.23 Liters F Urea nitrogen [Mass/volume] in Serum or Plasma --post dialysis 2024-09-17 22:31:00 6 mg/dL F 7-30 Urea nitrogen [Mass/volume] in Serum or Plasma 2024-09-17 22:30:00 30 mg/dL F 7-30 Creatinine [Mass/volume] in Serum or Plasma 2024-08-17 22:47:24 5.97 mg/dL F 0.7-1.3 WEIGHT (KG) 2024-08-04 16:42:52 54 kg F VT (KT/V TX VOL) 2024-08-04 16:42:52 29.7 L F CURRENT KRU 2024-08-04 16:42:52 F PRESCRIBED DAYS/WEEK 2024-08-04 16:42:52 3 Day/Wk F WEIGHT - POST DAY 1 2024-08-04 16:42:52 53.8 kg F VM (KT/V MEAN VOL) 2024-08-04 16:42:52 30 F stdKT/V Total 2024-08-04 16:42:52 N/A F BSA [place] 2024-08-04 16:42:52 1.65 sq m F Total Kt/V 2024-08-04 16:42:52 1.82 F KT/V PRESCRIBED 2024-08-04 16:42:52 1.94 F AMPUTATE FACTOR 2024-08-04 16:42:52 0 F spKt/V 2024-08-04 16:42:52 1.82 F PATIENT AGE 2024-08-04 16:42:52 63 Years F DIALYZER FLOW-QD 2024-08-04 16:42:52 492 mL/min F nPCR 2024-08-04 16:42:52 0.79 G/KG/D F WEIGHT - PRE DAY 1 2024-08-04 16:42:52 55.2 kg F eKt/V 2024-08-04 16:42:52 1.53 F stdKt/V (DIAL) 2024-08-04 16:42:52 N/A F Std Renal KT/V 2024-08-04 16:42:52 N/A F URR% 2024-08-04 16:42:52 80 % F BLOOD FLOW-QWB 2024-08-04 16:42:52 350 F Residual kt/v 2024-08-04 16:42:52 F Dialyzer MARTHA 2024-08-04 16:42:52 1455 Calc F TBW ([facility]) 2024-08-04 16:42:52 33.23 Liters F TOTAL HOURS/WEEK DIALYSIS 2024-08-04 16:42:52 3 hrs F LENGTH OF DIALYSIS 2024-08-04 16:42:52 208 min F HEIGHT IN INCHES 2024-08-04 16:42:52 69 Inches F Urea nitrogen [Mass/volume] in Serum or Plasma --post dialysis 2024-08-04 16:41:20 10 mg/dL F 9.0-23.0 Urea nitrogen [Mass/volume] in Serum or Plasma 2024-08-04 16:35:21 51 mg/dL F 9.0-23.0 Creatinine [Mass/volume] in Serum or Plasma 2024-07-20 17:04:28 7.15 mg/dL F 0.7-1.3 Dialyzer MARTHA 2024-07-07 00:01:29 1455 Calc F BLOOD FLOW-QWB 2024-07-07 00:01:29 329 F BSA [place] 2024-07-07 00:01:29 1.67 sq m F WEIGHT (KG) 2024-07-07 00:01:29 55.5 kg F stdKt/V (DIAL) 2024-07-07 00:01:29 N/A F TBW ([facility]) 2024-07-07 00:01:29 33.7 Liters F CURRENT KRU 2024-07-07 00:01:29 F AMPUTATE FACTOR 2024-07-07 00:01:29 0 F Total Kt/V 2024-07-07 00:01:29 1.75 F DIALYZER FLOW-QD 2024-07-07 00:01:29 500 mL/min F VM (KT/V MEAN VOL) 2024-07-07 00:01:29 30.1 F HEIGHT IN INCHES 2024-07-07 00:01:29 69 Inches F nPCR 2024-07-07 00:01:29 1.06 G/KG/D F stdKT/V Total 2024-07-07 00:01:29 N/A F Std Renal KT/V 2024-07-07 00:01:29 N/A F WEIGHT - PRE DAY 1 2024-07-07 00:01:29 56.1 kg F eKt/V 2024-07-07 00:01:29 1.48 F PRESCRIBED DAYS/WEEK 2024-07-07 00:01:29 3 Day/Wk F URR% 2024-07-07 00:01:29 79 % F LENGTH OF DIALYSIS 2024-07-07 00:01:29 212 min F spKt/V 2024-07-07 00:01:29 1.75 F PATIENT AGE 2024-07-07 00:01:29 63 Years F KT/V PRESCRIBED 2024-07-07 00:01:29 1.95 F WEIGHT - POST DAY 1 2024-07-07 00:01:29 55.2 kg F Residual kt/v 2024-07-07 00:01:29 F VT (KT/V TX VOL) 2024-07-07 00:01:29 30.5 L F TOTAL HOURS/WEEK DIALYSIS 2024-07-07 00:01:29 9 hrs F Urea nitrogen [Mass/volume] in Serum or Plasma 2024-07-06 23:59:19 68 mg/dL F 9.0-23.0 Urea nitrogen [Mass/volume] in Serum or Plasma --post dialysis 2024-07-06 22:48:15 14 mg/dL F 9.0-23.0 Std Renal KT/V 2024-05-16 02:48:04 N/A F VT (KT/V TX VOL) 2024-05-16 02:48:04 30.2 L F CURRENT KRU 2024-05-16 02:48:04 F VM (KT/V MEAN VOL) 2024-05-16 02:48:04 30.2 F AMPUTATE FACTOR 2024-05-16 02:48:04 0 F PRESCRIBED DAYS/WEEK 2024-05-16 02:48:04 3 Day/Wk F LENGTH OF DIALYSIS 2024-05-16 02:48:04 209 min F TOTAL HOURS/WEEK DIALYSIS 2024-05-16 02:48:04 3 hrs F URR% 2024-05-16 02:48:04 81 % F WEIGHT (KG) 2024-05-16 02:48:04 54.5 kg F WEIGHT - PRE DAY 1 2024-05-16 02:48:04 55 kg F stdKT/V Total 2024-05-16 02:48:04 N/A F DIALYZER FLOW-QD 2024-05-16 02:48:04 511 mL/min F eKt/V 2024-05-16 02:48:04 1.49 F Residual kt/v 2024-05-16 02:48:04 F nPCR 2024-05-16 02:48:04 0.57 G/KG/D F HEIGHT IN INCHES 2024-05-16 02:48:04 69 Inches F KT/V PRESCRIBED 2024-05-16 02:48:04 1.94 F Total Kt/V 2024-05-16 02:48:04 1.76 F TBW ([facility]) 2024-05-16 02:48:04 33.33 Liters F spKt/V 2024-05-16 02:48:04 1.76 F WEIGHT - POST DAY 1 2024-05-16 02:48:04 54.1 kg F BSA [place] 2024-05-16 02:48:04 1.65 sq m F stdKt/V (DIAL) 2024-05-16 02:48:04 N/A F BLOOD FLOW-QWB 2024-05-16 02:48:04 333 F PATIENT AGE 2024-05-16 02:48:04 63 Years F Dialyzer MARTHA 2024-05-16 02:48:04 1455 Calc F Creatinine [Mass/volume] in Serum or Plasma 2024-05-16 02:46:13 6.58 mg/dL F 0.7-1.3 Urea nitrogen [Mass/volume] in Serum or Plasma 2024-05-16 02:46:13 79 mg/dL F 9.0-23.0 Urea nitrogen [Mass/volume] in Serum or Plasma --post dialysis 2024-05-15 19:53:14 15 mg/dL F 9.0-23.0 Anemia Description Draw Date Result/Unit Status Ref Range Result Comments IRON SATURATION 2024-10-06 06:47:45 20 % F 21.0-49.0 TIBC 2024-10-06 06:47:45 256 ug/dL F 250.0-425.0 Iron binding capacity.unsaturated [Mass/volume] in Serum or Plasma 2024-10-06 06:21:29 206 ug/dL F 75.0-360.0 Iron [Mass/volume] in Serum or Plasma 2024-10-06 06:21:29 50 ug/dL F 65.0-175.0 Ferritin [Mass/volume] in Serum or Plasma 2024-10-06 02:31:23 429 ng/mL F 22.0-322.0 HCT CALC HGBX3 2024-10-01 02:54:35 34.8 % F 42.0-52.0 Erythrocyte distribution width [Ratio] by Automated count 2024-10-01 02:53:15 16 % F 11.0-15.0 Hemoglobin [Mass/volume] in Blood 2024-10-01 02:53:15 11.6 g/dL F 14.0-18.0 Platelets [#/volume] in Blood by Automated count 2024-10-01 02:53:15 282 x 10^3 cells/uL F 140.0-450.0 MCHC [Mass/volume] by Automated count 2024-10-01 02:53:15 29.5 g/dL F 29.6-35.3 MCH [Entitic mass] by Automated count 2024-10-01 02:53:15 30.7 pg F 25.9-34.2 Erythrocytes [#/volume] in Blood by Automated count 2024-10-01 02:53:15 3.78 x 10^6 cells/uL F 4.6-6.2 Hematocrit [Volume Fraction] of Blood by Automated count 2024-10-01 02:53:15 39.4 % F 41.0-53.0 MCV [Entitic volume] by Automated count 2024-10-01 02:53:15 104.1 fL F 80.0-100.0 HCT CALC HGBX3 2024-09-29 19:23:54 F RECOLLECT - OUTDATED SPECIMEN,Unable to Calculate. Hematocrit [Volume Fraction] of Blood by Automated count 2024-09-29 19:22:16 F RECOLLECT - OUTDATED SPECIMEN Erythrocytes [#/volume] in Blood by Automated count 2024-09-29 19:22:16 F RECOLLECT - OUTDATED SPECIMEN Hemoglobin [Mass/volume] in Blood 2024-09-29 19:22:16 F RECOLLECT - OUTDATED SPECIMEN MCV [Entitic volume] by Automated count 2024-09-29 19:22:16 F RECOLLECT - OUTDATED SPECIMEN,NOTE: MCV may be falsely elevated in aged samples (approximately 72 hours). MCHC [Mass/volume] by Automated count 2024-09-29 19:22:16 F RECOLLECT - OUTDATED SPECIMEN Platelets [#/volume] in Blood by Automated count 2024-09-29 19:22:16 F RECOLLECT - OUTDATED SPECIMEN MCH [Entitic mass] by Automated count 2024-09-29 19:22:16 F RECOLLECT - OUTDATED SPECIMEN Erythrocyte distribution width [Ratio] by Automated count 2024-09-29 19:22:16 F RECOLLECT - OUTDATED SPECIMEN Hemoglobin [Mass/volume] in Blood 2024-09-17 22:31:00 10.9 g/dL F 13.5-17.5 Hematocrit [Volume Fraction] of Blood by Automated count 2024-09-17 22:31:00 35.2 % F 37-53 HCT CALC HGBX3 2024-08-17 20:05:54 33.9 % F 42.0-52.0 Platelets [#/volume] in Blood by Automated count 2024-08-17 20:05:13 243 x 10^3 cells/uL F 140.0-450.0 Hemoglobin [Mass/volume] in Blood 2024-08-17 20:05:13 11.3 g/dL F 14.0-18.0 MCH [Entitic mass] by Automated count 2024-08-17 20:05:13 31 pg F 25.9-34.2 Hematocrit [Volume Fraction] of Blood by Automated count 2024-08-17 20:05:13 37 % F 41.0-53.0 MCV [Entitic volume] by Automated count 2024-08-17 20:05:13 101.9 fL F 80.0-100.0 Erythrocyte distribution width [Ratio] by Automated count 2024-08-17 20:05:11 15.1 % F 11.0-15.0 MCHC [Mass/volume] by Automated count 2024-08-17 20:05:11 30.4 g/dL F 29.6-35.3 Erythrocytes [#/volume] in Blood by Automated count 2024-08-17 20:05:11 3.63 x 10^6 cells/uL F 4.6-6.2 HCT CALC HGBX3 2024-08-04 21:23:07 31.2 % F 42.0-52.0 Hemoglobin [Mass/volume] in Blood 2024-08-04 21:22:12 10.4 g/dL F 14.0-18.0 IRON SATURATION 2024-07-21 09:04:06 11 % F 21.0-49.0 TIBC 2024-07-21 09:04:06 296 ug/dL F 250.0-425.0 Iron [Mass/volume] in Serum or Plasma 2024-07-21 06:54:00 32 ug/dL F 65.0-175.0 Iron binding capacity.unsaturated [Mass/volume] in Serum or Plasma 2024-07-21 06:54:00 264 ug/dL F 75.0-360.0 HCT CALC HGBX3 2024-07-20 23:24:21 28.8 % F 42.0-52.0 Erythrocyte distribution width [Ratio] by Automated count 2024-07-20 23:23:11 15.3 % F 11.0-15.0 Hemoglobin [Mass/volume] in Blood 2024-07-20 23:23:11 9.6 g/dL F 14.0-18.0 Platelets [#/volume] in Blood by Automated count 2024-07-20 23:23:11 392 x 10^3 cells/uL F 140.0-450.0 MCH [Entitic mass] by Automated count 2024-07-20 23:23:11 32 pg F 25.9-34.2 MCHC [Mass/volume] by Automated count 2024-07-20 23:23:11 31 g/dL F 29.6-35.3 Erythrocytes [#/volume] in Blood by Automated count 2024-07-20 23:23:11 3 x 10^6 cells/uL F 4.6-6.2 Hematocrit [Volume Fraction] of Blood by Automated count 2024-07-20 23:23:11 31 % F 41.0-53.0 MCV [Entitic volume] by Automated count 2024-07-20 23:23:11 103.3 fL F 80.0-100.0 Ferritin [Mass/volume] in Serum or Plasma 2024-07-20 21:43:17 102 ng/mL F 22.0-322.0 HCT CALC HGBX3 2024-07-07 04:04:07 30.9 % F 42.0-52.0 Hemoglobin [Mass/volume] in Blood 2024-07-07 04:03:12 10.3 g/dL F 14.0-18.0 HCT CALC HGBX3 2024-06-23 17:17:54 27.6 % F 42.0-52.0 Hemoglobin [Mass/volume] in Blood 2024-06-23 17:17:11 9.2 g/dL F 14.0-18.0 Ferritin [Mass/volume] in Serum or Plasma 2024-05-16 [...] count 2024-05-15 22:17:18 102.8 fL F 80.0-100.0 Hemoglobin [Mass/volume] in Blood 2024-05-15 22:17:17 8.1 g/dL F 14.0-18.0 MCHC [Mass/volume] by Automated count 2024-05-15 22:17:17 31.3 g/dL F 29.6-35.3 Erythrocytes [#/volume] in Blood by Automated count 2024-05-15 22:17:17 2.53 x 10'6 cells/uL F 4.6-6.2 Hematocrit [Volume Fraction] of Blood by Automated count 2024-05-15 22:17:17 26 % F 41.0-53.0 IRON SATURATION 2024-05-15 20:22:39 19 % F 21.0-49.0 TIBC 2024-05-15 20:22:39 311 ug/dL F 250.0-425.0 Iron binding capacity.unsaturated [Mass/volume] in Serum or Plasma 2024-05-15 20:17:39 252 ug/dL F 75.0-360.0 Iron [Mass/volume] in Serum or Plasma 2024-05-15 20:17:39 59 ug/dL F 65.0-175.0 Hemoglobin [Mass/volume] in Blood FluidBP Description Draw Date Result/Unit Status Ref Range Result Comments Sodium [Moles/volume] in Serum or Plasma 2024-10-01 05:12:33 143 mEq/L F 132.0-146.0 Sodium [Moles/volume] in Serum or Plasma 2024-09-29 19:22:16 F RECOLLECT - OUTDATED SPECIMEN Sodium [Moles/volume] in Serum or Plasma 2024-08-18 06:23:02 138 mEq/L F 132.0-146.0 Sodium [Moles/volume] in Serum or Plasma 2024-07-21 06:54:00 141 mEq/L F 132.0-146.0 Sodium [Moles/volume] in Serum or Plasma 2024-05-16 04:52:45 141 mEq/L F 132.0-146.0 General Description Draw Date Result/Unit Status Ref Range Result Comments Chloride [Moles/volume] in Serum or Plasma 2024-10-01 05:12:33 111 mEq/L F 99.0-109.0 Aspartate aminotransferase [Enzymatic activity/volume] in Serum or Plasma 2024-10-01 03:34:49 27 U/L F 0.0-33.0 Alanine aminotransferase [Enzymatic activity/volume] in Serum or Plasma 2024-10-01 03:34:49 16 U/L F 10.0-49.0 Alanine aminotransferase [Enzymatic activity/volume] in Serum or Plasma 2024-09-29 19:22:16 F RECOLLECT - OUTDATED SPECIMEN Aspartate aminotransferase [Enzymatic activity/volume] in Serum or Plasma 2024-09-29 19:22:16 F RECOLLECT - OUTDATED SPECIMEN Chloride [Moles/volume] in Serum or Plasma 2024-09-29 19:22:16 F RECOLLECT - OUTDATED SPECIMEN Chloride [Moles/volume] in Serum or Plasma 2024-08-18 06:23:02 106 mEq/L F 99.0-109.0 Aspartate aminotransferase [Enzymatic activity/volume] in Serum or Plasma 2024-08-17 22:47:24 16 U/L F 0.0-33.0 Alanine aminotransferase [Enzymatic activity/volume] in Serum or Plasma 2024-08-17 22:47:24 12 U/L F 10.0-49.0 Chloride [Moles/volume] in Serum or Plasma 2024-07-21 06:54:00 107 mEq/L F 99.0-109.0 Aspartate aminotransferase [Enzymatic activity/volume] in Serum or Plasma 2024-07-20 17:04:28 15 U/L F 0.0-33.0 Alanine aminotransferase [Enzymatic activity/volume] in Serum or Plasma 2024-07-20 17:04:28 28 U/L F 10.0-49.0 Chloride [Moles/volume] in Serum or Plasma 2024-05-16 04:52:45 109 mEq/L F 99.0-109.0 Aspartate aminotransferase [Enzymatic activity/volume] in Serum or Plasma 2024-05-16 02:46:13 14 U/L F 0.0-33.0 Alanine aminotransferase [Enzymatic activity/volume] in Serum or Plasma 2024-05-15 18:34:21 11 U/L F 10.0-49.0 InfectionVaccination Description Draw Date Result/Unit Status Ref Range Result Comments Monocytes/100 leukocytes in Blood by Automated count 2024-10-01 02:53:15 7.4 % F Lymphocytes/100 leukocytes in Blood by Automated count 2024-10-01 02:53:15 25.6 % F Eosinophils/100 leukocytes in Blood by Automated count 2024-10-01 02:53:15 5.6 % F Basophils/100 leukocytes in Blood by Automated count 2024-10-01 02:53:15 0.2 % F Neutrophils/100 leukocytes in Blood by Automated count 2024-10-01 02:53:15 61.2 % F Monocytes [#/volume] in Blood by Automated count 2024-10-01 02:53:15 663 Cells/uL F 0.0-1100.0 Basophils [#/volume] in Blood by Automated count 2024-10-01 02:53:15 18 Cells/uL F 0.0-400.0 Eosinophils [#/volume] in Blood by Automated count 2024-10-01 02:53:15 502 Cells/uL F 0.0-700.0 Neutrophils [#/volume] in Blood by Automated count 2024-10-01 02:53:15 5484 Cells/uL F 2000.0-8800. 0 Leukocytes [#/volume] in Blood by Automated count 2024-10-01 02:53:15 9 x 10^3 cells/uL F 4.0-11.0 Lymphocytes [#/volume] in Blood by Automated count 2024-10-01 02:53:15 2294 Cells/uL F 620.0-3660.0 Neutrophils/100 leukocytes in Blood by Automated count 2024-09-29 19:22:16 F RECOLLECT - OUTDATED SPECIMEN,WBC differential count percentage results will continue to be reported without reference ranges per [employer] guidelines and will not be flagged Normal of Abnormal. Refer to Absolute Differential counts for reference ranges. Lymphocytes/100 leukocytes in Blood by Automated count 2024-09-29 19:22:16 F RECOLLECT - OUTDATED SPECIMEN Monocytes/100 leukocytes in Blood by Automated count 2024-09-29 19:22:16 F RECOLLECT - OUTDATED SPECIMEN Eosinophils [#/volume] in Blood by Automated count 2024-09-29 19:22:16 F RECOLLECT - OUTDATED SPECIMEN Leukocytes [#/volume] in Blood by Automated count 2024-09-29 19:22:16 F RECOLLECT - OUTDATED SPECIMEN Neutrophils [#/volume] in Blood by Automated count 2024-09-29 19:22:16 F RECOLLECT - OUTDATED SPECIMEN Eosinophils/100 leukocytes in Blood by Automated count 2024-09-29 19:22:16 F RECOLLECT - OUTDATED SPECIMEN Basophils [#/volume] in Blood by Automated count 2024-09-29 19:22:16 F RECOLLECT - OUTDATED SPECIMEN Lymphocytes [#/volume] in Blood by Automated count 2024-09-29 19:22:16 F RECOLLECT - OUTDATED SPECIMEN Monocytes [#/volume] in Blood by Automated count 2024-09-29 19:22:16 F RECOLLECT - OUTDATED SPECIMEN Basophils/100 leukocytes in Blood by Automated count 2024-09-29 19:22:16 F RECOLLECT - OUTDATED SPECIMEN Neutrophils/100 leukocytes in Blood by Automated count 2024-08-17 20:05:13 65.1 % F Lymphocytes/100 leukocytes in Blood by Automated count 2024-08-17 20:05:11 16.1 % F Basophils/100 leukocytes in Blood by Automated count 2024-08-17 20:05:11 2.6 % F Eosinophils/100 leukocytes in Blood by Automated count 2024-08-17 20:05:11 9.4 % F Monocytes [#/volume] in Blood by Automated count 2024-08-17 20:05:11 594 Cells/uL F 0.0-1100.0 Monocytes/100 leukocytes in Blood by Automated count 2024-08-17 20:05:11 6.8 % F Eosinophils [#/volume] in Blood by Automated count 2024-08-17 20:05:11 821 Cells/uL F 0.0-700.0 Basophils [#/volume] in Blood by Automated count 2024-08-17 20:05:11 227 Cells/uL F 0.0-400.0 Neutrophils [#/volume] in Blood by Automated count 2024-08-17 20:05:11 5683 Cells/uL F 2000.0-8800. 0 Leukocytes [#/volume] in Blood by Automated count 2024-08-17 20:05:11 8.7 x 10^3 cells/uL F 4.0-11.0 Lymphocytes [#/volume] in Blood by Automated count 2024-08-17 20:05:11 1406 Cells/uL F 620.0-3660.0 Monocytes/100 leukocytes in Blood by Automated count 2024-07-20 23:23:11 8.2 % F Lymphocytes/100 leukocytes in Blood by Automated count 2024-07-20 23:23:11 16.5 % F Neutrophils/100 leukocytes in Blood by Automated count 2024-07-20 23:23:11 68.7 % F Eosinophils/100 leukocytes in Blood by Automated count 2024-07-20 23:23:11 5.6 % F Basophils/100 leukocytes in Blood by Automated count 2024-07-20 23:23:11 1.1 % F Monocytes [#/volume] in Blood by Automated count 2024-07-20 23:23:11 1442 Cells/uL F 0.0-1100.0 Basophils [#/volume] in Blood by Automated count 2024-07-20 23:23:11 193 Cells/uL F 0.0-400.0 Eosinophils [#/volume] in Blood by Automated count 2024-07-20 23:23:11 984 Cells/uL F 0.0-700.0 Neutrophils [#/volume] in Blood by Automated count 2024-07-20 23:23:11 37178 Cells/uL F 2000.0-8800. 0 Leukocytes [#/volume] in Blood by Automated count 2024-07-20 23:23:11 17.6 x 10^3 cells/uL F 4.0-11.0 Lymphocytes [#/volume] in Blood by Automated count 2024-07-20 23:23:11 2901 Cells/uL F 620.0-3660.0 Basophils/100 leukocytes in Blood by Automated count 2024-05-15 22:17:18 2.6 % F Neutrophils [#/volume] in Blood by Automated count 2024-05-15 22:17:18 4043 Cells/uL F 2000.0-8800. 0 Leukocytes [#/volume] in Blood by Automated count 2024-05-15 22:17:18 7.8 x 10^3 cells/uL F 4.0-11.0 Lymphocytes [#/volume] in Blood by Automated count 2024-05-15 22:17:18 2213 Cells/uL F 620.0-3660.0 Lymphocytes/100 leukocytes in Blood by Automated count 2024-05-15 22:17:17 28.3 % F Monocytes/100 leukocytes in Blood by Automated count 2024-05-15 22:17:17 7.4 % F Eosinophils/100 leukocytes in Blood by Automated count 2024-05-15 22:17:17 10.1 % F Neutrophils/100 leukocytes in Blood by Automated count 2024-05-15 22:17:17 51.7 % F Monocytes [#/volume] in Blood by Automated count 2024-05-15 22:17:17 579 Cells/uL F 0.0-1100.0 Basophils [#/volume] in Blood by Automated count 2024-05-15 22:17:17 203 Cells/uL F 0.0-400.0 Eosinophils [#/volume] in Blood by Automated count 2024-05-15 22:17:17 790 Cells/uL F 0.0-700.0 MineralBone Disorder Description Draw Date Result/Unit Status Ref Range Result Comments CA CORRECTED 2024-10-01 05:28:51 7.8 mg/dL F CA/PHOS PRODUCT 2024-10-01 05:26:26 58.5 Calc F 21.0-53.0 CA*PO4 CORRCTD 2024-10-01 05:26:26 58.5 Calc F 21.0-53.0 Phosphate [Mass/volume] in Serum or Plasma 2024-10-01 05:12:33 7.5 mg/dL F 2.4-5.1 Calcium [Mass/volume] in Serum or Plasma 2024-10-01 05:12:33 7.8 mg/dL F 8.7-10.4 Alkaline phosphatase [Enzymatic activity/volume] in Serum or Plasma 2024-10-01 03:34:49 181 U/L F 46.0-116.0 Parathyrin.intact [Mass/volume] in Serum or Plasma 2024-09-29 22:11:51 F CANCELED - TEST CANCELED CA CORRECTED 2024-09-29 19:25:54 F Unable to Calcul ate Alkaline phosphatase [Enzymatic activity/volume] in Serum or Plasma 2024-09-29 19:22:16 F RECOLLECT - OUTDATED SPECIMEN Calcium [Mass/volume] in Serum or Plasma 2024-09-18 04:59:59 No Result F Alkaline phosphatase [Enzymatic activity/volume] in Serum or Plasma 2024-08-17 22:47:24 184 U/L F 46.0-116.0 CA CORRECTED 2024-08-05 07:25:20 8.4 mg/dL F CA*PO4 CORRCTD 2024-08-05 07:22:32 60.5 Calc F 21.0-53.0 CA/PHOS PRODUCT 2024-08-05 07:22:32 60.5 Calc F 21.0-53.0 Phosphate [Mass/volume] in Serum or Plasma 2024-08-05 07:05:00 7.2 mg/dL F 2.4-5.1 Calcium [Mass/volume] in Serum or Plasma 2024-08-05 07:05:00 8.4 mg/dL F 8.7-10.4 Parathyrin.intact [Mass/volume] in Serum or Plasma 2024-08-04 18:56:17 1214 pg/mL F 18.0-80.0 CA CORRECTED 2024-07-21 09:05:37 8.4 mg/dL F Calcium [Mass/volume] in Serum or Plasma 2024-07-21 06:54:00 8.4 mg/dL F 8.7-10.4 Alkaline phosphatase [Enzymatic activity/volume] in Serum or Plasma 2024-07-20 17:04:28 182 U/L F 46.0-116.0 CA CORRECTED 2024-07-07 09:19:47 7.6 mg/dL F CA/PHOS PRODUCT 2024-07-07 09:18:00 61.6 Calc F 21.0-53.0 CA*PO4 CORRCTD 2024-07-07 09:18:00 61.6 Calc F 21.0-53.0 Phosphate [Mass/volume] in Serum or Plasma 2024-07-07 07:55:16 8.1 mg/dL F 2.4-5.1 Calcium [Mass/volume] in Serum or Plasma 2024-07-07 07:55:16 7.6 mg/dL F 8.7-10.4 Parathyrin.intact [Mass/volume] in Serum or Plasma 2024-07-06 21:45:16 1328 pg/mL F 18.0-80.0 Alkaline phosphatase [Enzymatic activity/volume] in Serum or Plasma 2024-05-16 02:46:13 138 U/L F 46.0-116.0 Nutrition Description Draw Date Result/Unit Status Ref Range Result Comments Potassium [Moles/volume] in Serum or Plasma 2024-10-01 05:12:33 5.2 mEq/L F 3.5-5.5 GLOBULIN 2024-10-01 03:35:46 2.3 g/dL F 0.9-5.0 A/G RATIO 2024-10-01 03:35:46 1.7 Calc F 1.0-2.5 Lactate dehydrogenase [Enzymatic activity/volume] in Serum or Plasma 2024-10-01 03:34:49 365 U/L F 120.0-246.0 Bicarbonate [Moles/volume] in Serum or Plasma 2024-10-01 03:34:49 16 mEq/L F 20.0-31.0 Albumin [Mass/volume] in Serum or Plasma by Bromocresol green (BCG) dye binding method 2024-10-01 03:34:49 4 g/dL F 3.4-4.8 Protein [Mass/volume] in Serum or Plasma 2024-10-01 03:34:49 6.3 g/dL F 5.7-8.2 A/G RATIO 2024-09-29 19:23:54 F RECOLLECT - OUTDATED SPECIMEN,Unable to Calculate. GLOBULIN 2024-09-29 19:23:54 F RECOLLECT - OUTDATED SPECIMEN,Unable to Calculate. Bicarbonate [Moles/volume] in Serum or Plasma 2024-09-29 19:22:16 F RECOLLECT - OUTDATED SPECIMEN Albumin [Mass/volume] in Serum or Plasma by Bromocresol green (BCG) dye binding method 2024-09-29 19:22:16 F RECOLLECT - OUTDATED SPECIMEN Protein [Mass/volume] in Serum or Plasma 2024-09-29 19:22:16 F RECOLLECT - OUTDATED SPECIMEN Lactate dehydrogenase [Enzymatic activity/volume] in Serum or Plasma 2024-09-29 19:22:16 F RECOLLECT - OUTDATED SPECIMEN Potassium [Moles/volume] in Serum or Plasma 2024-09-29 19:22:16 F RECOLLECT - OUTDATED SPECIMEN Potassium [Moles/volume] in Serum or Plasma 2024-09-17 22:31:00 5.3 mEq/L F 3.6-5.1 Potassium [Moles/volume] in Serum or Plasma 2024-08-18 06:23:02 5.4 mEq/L F 3.5-5.5 A/G RATIO 2024-08-17 22:48:27 1.7 Calc F 1.0-2.5 GLOBULIN 2024-08-17 22:48:27 2.5 g/dL F 0.9-5.0 Lactate dehydrogenase [Enzymatic activity/volume] in Serum or Plasma 2024-08-17 22:47:24 248 U/L F 120.0-246.0 Bicarbonate [Moles/volume] in Serum or Plasma 2024-08-17 22:47:24 16 mEq/L F 20.0-31.0 Albumin [Mass/volume] in Serum or Plasma by Bromocresol green (BCG) dye binding method 2024-08-17 22:47:24 4.3 g/dL F 3.4-4.8 Protein [Mass/volume] in Serum or Plasma 2024-08-17 22:47:24 6.8 g/dL F 5.7-8.2 Potassium [Moles/volume] in Serum or Plasma 2024-07-21 06:54:00 5 mEq/L F 3.5-5.5 GLOBULIN 2024-07-20 17:05:10 2.2 g/dL F 0.9-5.0 A/G RATIO 2024-07-20 17:05:10 2 Calc F 1.0-2.5 Lactate dehydrogenase [Enzymatic activity/volume] in Serum or Plasma 2024-07-20 17:04:28 173 U/L F 120.0-246.0 Bicarbonate [Moles/volume] in Serum or Plasma 2024-07-20 17:04:28 21 mEq/L F 20.0-31.0 Albumin [Mass/volume] in Serum or Plasma by Bromocresol green (BCG) dye binding method 2024-07-20 17:04:28 4.3 g/dL F 3.4-4.8 Protein [Mass/volume] in Serum or Plasma 2024-07-20 17:04:28 6.5 g/dL F 5.7-8.2 Potassium [Moles/volume] in Serum or Plasma 2024-05-16 04:52:45 5.8 mEq/L F 3.5-5.5 GLOBULIN 2024-05-16 02:47:25 2.1 g/dL F 0.9-5.0 A/G RATIO 2024-05-16 02:47:25 2 Calc F 1.0-2.5 Lactate dehydrogenase [Enzymatic activity/volume] in Serum or Plasma 2024-05-16 02:46:13 270 U/L F 120.0-246.0 Bicarbonate [Moles/volume] in Serum or Plasma 2024-05-16 02:46:13 18 mEq/L F 20.0-31.0 Albumin [Mass/volume] in Serum or Plasma by Bromocresol green (BCG) dye binding method 2024-05-16 02:46:13 4.3 g/dL F 3.4-4.8 Protein [Mass/volume] in Serum or Plasma 2024-05-16 02:46:13 6.4 g/dL F 5.7-8.2 Encounters No encounter information to report Immunizations Ordered Immunization Name Filled Immunization Name Date Status Comments Refusal Reason Pneumococcal conjugate PCV20, polysaccharide [id number] conjugate, adjuvant, PF 2024-07-21 20:24:00 Covid-19 Vaccination 2024-05-08 06:00:00 Influenza Vaccination 2024-05-08 06:00:00 pneumococcal polysaccharide PPV23 2021-05-17 06:00:00 Pneumococcal conjugate PCV 13 2020-05-31 06:00:00 Tdap 2012-10-09 05:00:00 Hepatitis B Vaccination 1960 06:00:00 Plan of Treatment Planned Activity Provider Planned Date Details Commen ts Future Scheduled Test Claudio Jain 2024-10-24 06:28:14 Ferritin [Mass/volume] in Serum or Plasma [code = 2276-4] Diagnostic Test Pending Claudio Jain 2024-05-18 07:26:48 Hemoglobin [Mass/volume] in Blood [code = 718-7] Diagnostic Test Pending Claudio Brownleeht 2024-05-12 22:55:23 Sodium [Moles/volume] in Serum or Plasma [code = 2951-2] Diagnostic Test Pending Claudio Brownleeht 2024-05-14 07:30:48 Alanine aminotransferase [Enzymatic activity/volume] in Serum or Plasma [code = 1742-6] Diagnostic Test Pending Claudio Brownleeht 2024-05-14 06:00:00 Creatinine [Mass/volume] in Serum or Plasma [code = 2160-0] Diagnostic Test Pending Claudio Brownleeht 2024-06-05 07:35:50 Parathyrin.intact [Mass/volume] in Serum or Plasma [code = 2731-8] [facility]:03[facility]00 [facility]10 20:28:11 In-Center Hemodialysis Treatment [code = GUA030] Diet Order Claudio Jones [facility] September 30, 2024 Diet Calorie 40 kcal/kg Fluid Value 1800 mL/d Phosphorus Value 1000 mg/d Potassium Value 2000 mg/d Protein Value 1.4 gm/kg Sodium Value 1800 mg/d Calculated Weight 54 kg
--- NOTE | 2024-10-13 08:16 | ED.GENADULT ---
HPI - General Adult General Chief complaint: Shortness of Breath/Dyspnea Stated complaint: Hard time breathing- lung cancer History of Present Illness HPI narrative: Patient is a 64 year white male who lives independently in [place] has a history of severe coronary disease, acute on chronic respiratory failure, congestive heart failure. He has history of pulmonary edema where he gets intubated he has at least been intubated several times. He was last transported [facility]. He is now undergoing dialysis as well. He reports he got really short of breath this morning an ambulance was called he was brought to the hospital he got 4 nitroglycerins EN route, he has an IV started, he has an IV extremity has a dialysis port in his right subclavian area. The patient reports breathing difficulty diaphoresis. He does not describe chest pain. Related Data Home Medications ?Medication ?Instructions ?Recorded ?Confirmed carvedilol 12.5 mg tablet 6.25 mg PO BID 05/18/23 10/13/24 aspirin 81 mg chewable tablet 1 tab PO DAILY 05/17/24 10/13/24 atorvastatin 40 mg tablet 40 mg PO QPM 05/17/24 10/13/24 bumetanide 2 mg tablet 2 mg PO DAILY 05/17/24 10/13/24 multivitamin with folic acid 400 1 tab PO DAILY 05/17/24 10/13/24 mcg tablet (Daily-Ernestina (with folic acid)) Allergies Allergy/AdvReac Type Severity Reaction Status Date / Time ranitidine AdvReac itch Verified 10/13/24 08:13 Review of Systems Status of ROS: Reports: 6 or more systems reviewed and unremarkable except as noted in History and below [facility] Medical History Altered mental status ?R41.82 - Altered mental status, unspecified (ICD-10) Non-STEMI (non-ST elevated myocardial infarction) ?I21.4 - Non-ST elevation (NSTEMI) myocardial infarction (ICD-10) Smoking ?F17.200 - Nicotine dependence, unspecified, uncomplicated (ICD-10) Alcohol use disorder ?F10.90 - Alcohol use, unspecified, uncomplicated (ICD-10) COPD (chronic obstructive pulmonary disease) ?J44.9 - Chronic obstructive pulmonary disease, unspecified (ICD-10) Coronary artery disease ?I25.10 - Atherosclerotic heart disease of [place] coronary artery without angina pectoris (ICD-10) Stage 4 chronic kidney disease ?N18.4 - Chronic kidney disease, stage 4 (severe) (ICD-10) Pulmonary hypertension ?I27.20 - Pulmonary hypertension, unspecified (ICD-10) Right heart failure ?I50.810 - Right heart failure, unspecified (ICD-10) Heart failure with reduced ejection fraction ?I50.20 - Unspecified systolic (congestive) heart failure (ICD-10) Social History Narrative: Patient apparently lives in an apartment in [place]. Smokes a pack of cigarettes a day. He has a history of alcohol abuse but current consumption is unknown. Unable to discuss plan of care or goals of care What is your current living situation?: unable to answer Problems where you live: unable to answer Problems where you live details: unknown In the past 12 months, utilities in danger of being shut off: unable to answer In past 12 months, lack of transportation kept you from medical appts, meetings, work, or getting things needed for daily living: unable to answer In the past 12 mos, have been you worried that your food would run out before you had money to buy more?: unable to answer In the past 12 mos, the food you bought just didn't last and you didn't have money to buy more?: unable to answer Highest level of school completed/degree received: don't know Smoking Status: Current every day smoker Do you use any of these nicotine containing products: None Second hand tobacco smoke exposure: Yes How often do you have a drink containing alcohol: 4 or more times a week AUDIT-C Alcohol total score: 4 Non-prescribed substance use: denies use Non-prescribed substance use details: unknown How often does anyone, including family, friends and others, physically hurt you: unable to answer How often does anyone, including family, friends and others, insult or talk down to you: unable to answer How often does anyone, including family, friends and others, threaten you with harm: unable to answer How often does anyone, including family, friends and others, scream or curse at you: unable to answer service: No Exam Narrative: Exam Narrative: Objective: Patient is initially hypoxic on just nasal cannula at 88%, with BiPAP is at 94% but really working hard to breathe. Alert, responds in short single word answers He is very disheveled Lungs are [facility] up bilaterally Heart rate and rhythm regular 2/6 systolic murmur occasional ectopic beat noted Extremities are no edema neurologic nonfocal, moving all extremities. Patient is thin and cachectic. Const: Vital Signs, click to edit/add: Vital Signs - 24 hr 10/13/24 08:10 10/13/24 08:12 10/13/24 08:15 Pulse Rate 136 H 137 H Pulse Rate [Right Pulse Oximeter] 135 H Respiratory Rate 24 24 25 H Blood Pressure Blood Pressure [Ri ght Upper Arm] 152/141 H Pulse Oximetry 94 93 95 Oxygen Delivery Me thod BiPAP Fraction of Inspir ed Oxygen 50 10/13/24 08:20 10/13/24 08:25 10/13/24 08:30 Pulse Rate 137 H 131 H Pulse Rate [Right Pulse Oximeter] Respiratory Rate 21 21 Blood Pressure Blood Pressure [Ri ght Upper Arm] Pulse Oximetry 88 96 100 Oxygen Delivery Me thod Fraction of Inspir ed Oxygen 10/13/24 08:31 10/13/24 08:33 10/13/24 08:42 Pulse Rate 129 H 126 H 122 H Pulse Rate [Right Pulse Oximeter] Respiratory Rate 28 H 30 H 13 Blood Pressure 188/132 H 165/134 H 125/80 Blood Pressure [Ri ght Upper Arm] Pulse Oximetry 100 100 98 Oxygen Delivery Me thod Fraction of Inspir ed Oxygen 10/13/24 08:44 10/13/24 08:45 10/13/24 08:47 Pulse Rate 126 H 126 H 128 H Pulse Rate [Right Pulse Oximeter] Respiratory Rate 10 L Blood Pressure 102/76 95/47 L Blood Pressure [Ri ght Upper Arm] Pulse Oximetry 97 97 96 Oxygen Delivery Me thod Fraction of Inspir ed Oxygen 10/13/24 08:52 10/13/24 08:55 10/13/24 08:59 Pulse Rate 132 H 134 H 137 H Pulse Rate [Right Pulse Oximeter] Respiratory Rate 11 L Blood Pressure 98/85 Blood Pressure [Ri ght Upper Arm] Pulse Oximetry 96 95 94 Oxygen Delivery Me thod Fraction of Inspir ed Oxygen 10/13/24 09:00 10/13/24 09:02 10/13/24 09:05 Pulse Rate 138 H 140 H 137 H Pulse Rate [Right Pulse Oximeter] Respiratory Rate Blood Pressure Blood Pressure [Ri ght Upper Arm] Pulse Oximetry 93 90 93 Oxygen Delivery Me thod Fraction of Inspir ed Oxygen 10/13/24 09:07 10/13/24 09:08 10/13/24 09:10 Pulse Rate 141 H 140 H 136 H Pulse Rate [Right Pulse Oximeter] Respiratory Rate Blood Pressure 158/119 H 157/129 H 157/107 H Blood Pressure [Ri ght Upper Arm] Pulse Oximetry 91 89 85 L Oxygen Delivery Me thod Fraction of Inspir ed Oxygen 10/13/24 09:15 10/13/24 09:46 Pulse Rate 133 H Pulse Rate [Right Pulse Oximeter] Respiratory Rate Blood Pressure Blood Pressure [Ri ght Upper Arm] Pulse Oximetry 93 95 Oxygen Delivery Me thod Intubated Fraction of Inspir ed Oxygen Course Vital Signs Vital signs: Initial Vital Signs Pulse Rate 135 H 10/13/24 08:10 Pulse Rhythm Regular 10/13/24 08:10 Pulse Strength 3+ Normal 10/13/24 08:10 Respiratory Rate 10/13/24 08:10 Blood Pressure 152/141 H 10/13/24 08:10 Blood Pressure Mean 144 H 10/13/24 08:10 Blood Pressure Position Sitting 10/13/24 08:10 Pulse Oximetry 94 10/13/24 08:10 Oxygen Delivery Method BiPAP 10/13/24 08:10 Fraction of Inspired Oxygen 50 10/13/24 08:10 Vital Signs Pulse Rate 135 H 10/13/24 08:10 Respiratory Rate 24 10/13/24 08:10 Blood Pressure 152/141 H 10/13/24 08:10 Pulse Oximetry 94 10/13/24 08:10 Oxygen Delivery Method BiPAP 10/13/24 08:10 Fraction of Inspired Oxygen 50 10/13/24 08:10 Pulse Rate 133 H 10/13/24 09:15 Respiratory Rate 0 L 10/13/24 09:07 Blood Pressure 157/107 H 10/13/24 09:10 Pulse Oximetry 95 10/13/24 09:46 Oxygen Delivery Method Intubated 10/13/24 09:46 Fraction of Inspired Oxygen 50 10/13/24 08:10 Medical Decision Making MDM Narrative Medical decision making narrative: [age] year white male with acute on chronic respiratory failure, congestive heart failure, severe coronary disease, on dialysis who needs to dialyzed today likely is volume overloaded. Patient certainly has pulmonary edema with his examination with rales. Will get an x-ray, IV Lasix although that may be ineffective given his dialysis situation, will have anesthesia here to consult regarding airway management, at this point BiPAP is helped his O2 sat but he is really working toward debris then with transportation to [facility] where he has been accepted by Dr. Santoyo it would be reasonable to intubate him for airway protection and management. Patient's critical care time for the entire time that he is here. Transfer was arranged with Dr. Holland at [facility] was here as well. Addendum 8:48 a.m.: The patient's chest x-ray shows a mass in his right lung he has got diffuse pulmonary edema. He was intubated successfully with by Anesthesia. He has been on a ketamine drip as well as because of lower blood pressure he was started on a Levophed Levophed drip. His blood pressures been stable, his O2 sat and CO2 monitoring been excellent. He was given a small 250 mL bolus of normal saline patient a Srivastava catheter placed. At this point he will be transferred via ground ambulance with a ventilator, our respiratory therapy department is making setting for his vent. Because of the patient's elevated white count I think it would be reasonable to give him a dose of Zosyn IV. The patient also has a chronically elevated troponin. This is likely based on his renal failure. Dr. Santoyo a [facility] is accepted in transfer transfer sheets completed. The patient's critical care time would be 48 minutes. . We attempted to contact patient's family as well social service is working on that. Patient did good consent intubation and treat transfer to [facility] verbally. He was not in condition to sign. Addendum 9:09 a.m. the patient has a adequate blood pressure off the Levophed so that was held and stopped, he was given Zosyn as he certainly could have an infiltrate as right lower lung as well. He has an elevated white count. He certainly could be at risk for aspiration. A interosseous IV was started in his right pretibial area, and it was successfully flushed and is being utilized. His blood pressure is stable, his O2 sats in between 92 and 95%. [facility] has accepted and the patient be transferred via ground ambulance. Lab Data Labs: Lab Results 10/13/24 10/13/24 Range/Units 08:18 08:23 WBC 15.57 H (4.50-11.00) K/uL RBC 4.41 (4.30-5.90) m/uL Hgb 13.9 (13.5-17.5) gm/dL Hct 45.2 (37.0-53.0) % MCV 103 H (80-100) fL MCH 32 (26-34) pg MCHC 31 L (32-36) gm/dL RDW Coeff of Martir 16.2 H (11.5-15.5) % Plt Count 307 (140-440) K/uL Neut % (Auto) 63.3 (42.0-72.0) % Lymph % (Auto) 25.6 (20-44) % [place] % (Auto) 7.5 (0.0-11.0) % Eos % (Auto) 2.5 (0.0-7.0) % Baso % (Auto) 0.7 (0.0-3.0) % Neut # (Auto) 9.90 H (1.7-7.0) K/uL Lymph # (Auto) 4.00 H (0.90-2.90) K/uL [place] # (Auto) 1.20 H (0.00-0.90) K/UL Eos # (Auto) 0.40 (0.00-0.50) K/uL Baso # (Auto) 0.10 (0.00-0.30) K/uL Abs Immat Gran (auto) 0.10 (0.00-0.30) K/uL Imm/Tot Granulo (auto) 0.4 % VBG pH 7.146 L* (7.32-7.43) VBG pCO2 59 H (40-50) mmHG VBG pO2 33.1 (25-47) mmHG VBG HCO3 20 L (21-28) mmol/L Sodium 143 (135-149) mmol/L Potassium 5.9 H (3.6-5.1) mmol/L Chloride 107 (96-114) mmol/L Carbon Dioxide 19 L (20-32) mmol/L Anion Gap 17 H (7-15) mEq/L BUN 56 H (7-30) mg/dL Creatinine 6.7 H (0.5-1.5) mg/dL Estimated GFR 9 ml/min Glucose 212 H (60-115) mg/dL Calcium 9.2 (8.4-10.6) mg/dL Total Bilirubin 1.0 (0.1-1.5) mg/dL Direct Bilirubin 0.7 H (0.0-0.5) mg/dL AST 46 H (12-35) U/L ALT 20 (4-50) U/L Alkaline Phosphatase 169 H (40-150) U/L Troponin I 0.70 H* (0.01-0.04) ng/mL NT-Pro-B Natriuret Pep 05573 pg/mL Total Protein 8.2 (6.0-8.3) g/dL Albumin 4.7 (3.3-5.0) g/dL Ethyl Alcohol < 0.01 (0.01-0.03) % POC Troponin I 0.54 H (0.01-0.04) ng/ml Discharge Plan Discharge Clinical Impression: Acute hypoxemic respiratory failure Patient Disposition: Xfer Other Prescriptions: No Action carvedilol 12.5 mg tablet 6.25 mg PO BID atorvastatin 40 mg tablet 40 mg PO QPM aspirin 81 mg tablet,chewable 1 tab PO DAILY multivitamin with folic acid [Daily-Ernestina (with folic acid)] 400 mcg tablet 1 tab PO DAILY bumetanide 2 mg tablet 2 mg PO DAILY Stand Alone Forms: MyHealth Info Instructions
[2024-10-13] MEDS: FUROSEMIDE 10 MG/ML inj 40 MG IV (08:26)
--- NOTE | 2024-10-13 08:30 | ED.NURSE ---
Verbal permission from patient to call [facility] to get phone number for roommate, Arley.
[2024-10-13 08:33] LABS: HCO3 VBG 20 mmol/L (21-28); PCO2 VBG 59 mmHG (40-50); PO2 VBG 33.1 mmHG (25-47)
[2024-10-13] MEDS: PROPOFOL 10 MG/ML INJ 50 MG IVP ×2 (08:34→08:38)
[2024-10-13] MEDS: KETAMINE IVP (08:34)
[2024-10-13] MEDS: PHENYLEPHRINE 100 MCG/ML SYRINGE IVP (08:34)
--- OUTSIDE RECORDS SUMMARY | 2024-10-13 08:34 | XMS_ITS | Clinical Summary ---
Author Organization [facility] Address [address] [place] [address] Care Team Providers Care Farm Instructor Name Role Phone Unavailable Primary Care Provider Unavailabl e Source Comments Patient records contain information from all sites at [facility]. For routine questions regarding patient records, call [phone] during business hours, M-F 8:00 AM - 5:00 PM Central Time. Record requests for emergency care only can be directed to [phone] at any time.[facility] Allergies Active Allergy Reactions Criticality Noted Date Comments Ranitidine Hcl Blisters High 03/13/2023 Medications amLODIPine (NORVASC) 5 mg tablet Take 1 tablet (5 mg total) by mouth daily. 90 tablet 3 3 3:58 PM CDT 03/19/20 23 Active sodium bicarbonate 650 mg tablet Take 2 tablets (1,300 mg total) by mouth 3 (three) times a day. 180 tablet 3 03/19/20 23 Active nystatin (Nystop) 100,000 unit/gram powder Apply 1 Application topically 3 (three) times a day. Apply to his groin area 15 g 07/23/19 25 Active acetaminophen (TylenoL) 500 mg tablet Take 2 tablets (1,000 mg total) by mouth every 8 (eight) hours as needed for mild pain or score 1-3 of 10 or fever (Notify service prior to first administration for fever). 360 tablet 5 5:10 PM CDT 09/30/19 25 025 Active carvediloL (Coreg) 12.5 mg tablet Take 1 tablet (12.5 mg total) by mouth 2 (two) times a day with meals. 180 tablet 3 5 12:18 PM CDT 10/05/19 25 Active fluticasone propion-salmete roL (Advair Diskus) 250-50 mcg/dose diskus inhaler Inhale 1 puff 2 (two) times a day. Rinse mouth with water after use to reduce aftertaste and incidence of candidiasis. Do not swallow. 60 each 5 12:19 PM 10/05/19 Active atorvastatin (Lipitor) 40 mg tablet Take 1 tablet (40 mg total) by mouth daily. 90 tablet 3 5 12:19 PM T 10/05/19 026 Active bumetanide (Bumex) 2 mg tablet Take 1 tablet (2 mg total) by mouth daily. 90 tablet 3 5 12:18 PM T 10/05/19 026 Active multivitamin-ir on-FA 18-400 mg-mcg tablet Take 1 tablet by mouth daily. 90 tablet 3 5 12:18 PM [facility] 10/05/19 026 Active multivitamin renal failure (Dialyvite) 100-1 mg tablet Take 1 tablet by mouth daily. 90 tablet 3 5 12:19 PM [facility] 10/05/19 0[address] Active aspirin [address] tablet Take 1 tablet (81 mg total) by mouth daily. 90 tablet 3 5 12:18 PM T 10/05/19 026 Active multivitamin-ir on-FA (CENTRUM COMPLETE) 18-400 mg-mcg per tablet Take 1 tablet by mouth daily. 03/19/20 025 Discontinu ed(Reorder ) acetaminophen (TYLENOL) 500 mg tablet Take 1 tablet (500 mg total) by mouth every 6 (six) hours as needed for mild pain or score 1-3 of 10 or fever (Notify service prior to first administration for fever). 03/19/20 025 Discontinu ed(Reorder ) carvediloL (COREG) 12.5 mg tablet Take 1 tablet (12.5 mg total) by mouth 2 (two) times a day with meals. 180 tablet 3 3 3:58 PM CDT 03/19/20 025 Discontinu ed(Reorder ) fluticasone propion-salmete roL (Advair Diskus) 250-50 mcg/dose diskus inhaler Inhale 1 puff 2 (two) times a day. Rinse mouth with water after use to reduce aftertaste and incidence of candidiasis. Do not swallow. 60 each 11 08/10/19 025 Discontinu ed(Reorder ) atorvastatin (Lipitor) 40 mg tablet Take 40 mg by mouth daily. Discontinu ed(Reorder ) azithromycin (Zithromax) 500 mg tabletIndicatio ns:Pneumonia Take 1 tablet (500 mg total) by mouth daily for 3 days. 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 10/08/2024 Orders Only Division of Nephrology and Hypertension in [place] [address] [place] [phone] Danae Zelaya APRN, C.N.P., M.S.N. Pneumonia (Primary Dx) 10/06/2024 Orders Only Division of Nephrology and Hypertension in [place] [address] [place] [phone] Danae Zelaya APRN, C.N.P., M.S.N. 10/05/2024 9:24 AM CDT - 10/05/2024 11:59 PM CDT Hospital Encounter Department of Radiology in [address] [phone] Danae Zelaya APRN, C.N.P., M.S.N. Pain Chest Discharge Disposition: Home or Self Care 10/04/2024 Orders Only Division of Nephrology and Hypertension in [place], [place] [address] [place] [phone] Claudio Jain Jr., D.O. 09/29/2024 Documentation Division of Nephrology and Hypertension in [place], [place] [address] [place] [phone] Danae Zelaya APRN C.N.PChristiane, M.S.N. 09/29/2024 Orders Only Division of Nephrology and Hypertension in [place], [place] [address] [place] [phone] Danae Zelaya APRN, C.N.Mary, M.S.N. Pain Chest (Primary Dx) 09/17/2024 Orders Only Division of Nephrology and Hypertension in [place], [place] [address] [place] [phone] External, Ordering Provider, Inga 08/09/2024 Orders Only Division of Nephrology and Hypertension in [place], [place] [address] [place] [phone] Claudio Jain Jr., D.O. 07/23/2024 Orders Only Division of Nephrology and Hypertension, [facility], in [place], [place] [address] [place] [phone] Danae Zelaya APRN, C.N.PChristiane, M.S.N. 07/21/2024 Orders Only Division of Nephrology and Hypertension, [facility], in [place], [place] [address] [place] [address] Danae Zelaya APRN, C.N.P., M.S.N. Epididymitis Acute (Primary Dx) from [...] 06/13/2023 03/13/2023 Depression Screening (Annual PHQ-2) 05/26/2024 Sodium Level 08/19/2025 08/19/2024, 0311/2024, 08/18/2024, Additional history exists Creatinine Level (Kidney Function Test) 08/23/2025 08/23/2024, 08/22/2024, 08/19/2024, Additional history exists Potassium Level 09/17/2025 09/17/2024, 07/26, 08/22/2024, Additional history exists Fasting Glucose for Diabetes Screening 08/20/2027 08/19/2024, 08/19/2024, 08/18/2024, Additional history exists Lipid (Cholesterol) Screening 03/15/2028 03/15/2023 Zoster Vaccines Completed 05/31/2020, 02/05/2019 HIV Screening Completed 03/14/2023 Hepatitis C Screening Completed 03/14/2023, 023 COVID-19 Vaccine Completed 05/08/2024, , 04/04/2021, Additional history exists Influenza Vaccine Completed 05/08/2024, , 04/04/2021, Additional history exists Pneumococcal vaccine (50+ years) Completed 07/21/2024, 05/31/2020, 05/17/2008 Hepatitis B Screening Discontinued 08/18/2024 , 06/26/2024, 04/27/2024, Additional history exists IPV Vaccines Aged Out No longer eligi ble based on patient's age to complete this topic Procedures Procedure Name Priority Date/Time Associated Diagnosis Comments CT CHEST WITHOUT IV CONTRAST RAD - Routine (most inpatients and all outpatients) 10/05/2024 10:23 AM CDT Pain Chest BUN (BLOOD UREA NITROGEN), S/P Routine 09/17/2024 2:12 PM CDT CBC WITH DIFFERENTIAL, B Routine 09/17/2024 10:38 AM CDT BUN (BLOOD UREA NITROGEN), S/P Routine 09/17/2024 10:38 AM CDT POTASSIUM, S/P Routine 09/17/2024 10:38 AM CDT RENAL FUNCTION PANEL, S Routine 03/19/2023 8:11 AM CDT LIPID PANEL, S Routine 03/15/2023 5:56 AM CDT HCV AB SCRN W/REFLEX TO HCV PCR, S Timed 03/14/2023 6:31 PM CDT HIV-1/-2 AG AND AB SCREEN, PLASMA Timed 03/14/2023 6:31 PM CDT HEPATITIS B SURFACE ANTIGEN Timed 03/14/2023 6:31 PM CDT from Last 3 Months or Most Recently Relevant to Health Maintenance Results * CT Chest without IV Contrast [...] cystic pancreatic lesions, largest which included the ogmgm-ye-vxrh on today's study appears enlarged from a [...] size, and is incompletely included within the bjfdi-ur-qfgh. Cholecystectomy. Diffuse changes of spondylosis. No suspicious [...] size, and is incompletely included within the gkmll-yr-fjiy.Cholecystectomy. Diffuse changes of spondylosis. No suspicious appearing [...] multiple cystic pancreaticlesions, largest which included the rarxx-mr-nouk on today's study appearsenlarged from a prior study of 03/13/2023. us Danae Zelaya APRN, C.N.P., M.S.N. IMG CT PROCEDURE S Final Result * (ABNORMAL) BUN (Blood Urea Nitrogen) (09/17/2024 2:12 PM CDT) Only the most recent of2 resultswithin the time period is included. EXT BUN (Blood Urea Nitrogen) 6(L) 7 - 30 mg/dL [facility] 09/17/2024 2:12 PM CDT Narrative [facility] - 09/20/2024 7:07 AM CDT Source result document attached to Order Number [id number] ([id number]) dated 09/17/2024. External results verified in Extract by Nabila Bird on 09/20/2024 at 07:04 AM. us Ordering Provider Quan Xiong LAB BLOOD ADD-ON Final Result Performing Organization Address [facility]/ZIP Co de Phone Number [facility] [address] [place] [address] * (ABNORMAL) CBC with Differential, Blood (09/17/2024 10:38 AM CDT) EXT Leukocytes 9.18 4.50 - 11.00 K/uL [facility] EXT RBC 3.48(L) 4.30 - 5.90 m/uL [facility] EXT Hemoglobin 10.9(L) 13.5 - 17.5 gm/dL [facility] EXT Hematocrit 35.2(L) 37.0 - 53.0 % [facility] EXT MCV 101(H) 80 - 100 fL [facility] EXT Platelet Count 462(H) 140 - 440 K/uL [facility] 09/17/2024 10:3 8 AM CDT Narrative [facility] - 09/20/2024 7:07 AM CDT Source result document attached to Order Number [id number] ([id number]) dated 09/17/2024. External results verified in Extract by Nabila Bird on 09/20/2024 at 07:04 AM. us Ordering Provider Quan Xiong LAB BLOOD ADD-ON Final Result Performing Organization Address [facility] Co de Phone Number [facility] [address] [place] [address] * (ABNORMAL) Potassium (09/17/2024 10:38 AM CDT) EXT Potassium 5.3(H) 3.6 - 5.1 mmol/L [facility] 09/17/2024 10:3 8 AM CDT Narrative [facility] - 09/20/2024 7:07 AM CDT External results verified in Extract by Nabila Bird on 09/20/2024 at 07:04 AM. us Ordering Provider External M.D. LAB BLOOD ADD-ON Final Result [facility] [address] [place] [address], [facility] [phone] * (ABNORMAL) Lipid Panel (03/15/2023 5:56 AM [...] 5:56 AM CDT 03/15/2023 7:12 AM CDT Clai B Catsamir P.A.-C. LAB BLOOD ADD-ON Final Resu lt Performing Organization Address [facility] Co de Phone Number [facility] [address] [place] [address], [facility] [address] [place] [address] * HIV-1/-2 Ag and Ab Screen, Plasma (03/14/2023 6:31 PM CDT) Pathologist [facility] HIV-1/-2 Ag and Ab Screen, P Negative Negative 03/14/2023 9:01 PM CDT [facility] Comment: Negative result does not rule out HIV infection. If exposure to HIV infection occurred <14 days ago, contact the laboratory to request addition of HIV-1/HIV-2 RNA detection, Plasma (HIP12). Blood (Blood, Venous) 03/14/2023 6:31 PM CDT 03/14/2023 8:20 PM CDT Clajasmina B Sugar Candelaria.A.-C. LAB MICROBIOLOGY - BLOOD OR DERABLES Final Result Performing Organization Address [facility]/ZIP Co de Phone Number [facility] [address] [place] [address] [facility] [address] [place] [address] * (ABNORMAL) HCV Ab Scrn w/Reflex to HCV PCR, Serum (03/14/2023 6:31 PM CDT) HCV Ab Screen, S Reactive(A ) Negative 03/14/2023 11:27 PM CDT [facility] Comment: Supplemental testing for HCV RNA is ordered to rule out active HCV infection. Jiiydz-ri-bkjksp ratio is >=1.00 and <8.00. Blood (Blood, Venous) 03/14/2023 6:31 PM CDT 03/14/2023 8:21 PM CDT Sonido Wooten P.A.-C. LAB MICROBIOLOGY - BLOOD OR DERABLES Final Result [facility] [address] [place] [address] [facility] [address] [place] [address] from Last 3 Months or Most Recently Relevant to Health Maintenance Insurance [facility] Advance Directives For more information, please contact: [phone] * Full Code (Latest Code Status on File) Date Activated Date Inactivated Comments 03/13/2023 4:37 AM 03/19/2023 5:51 PM Question Answer Comments Full Code: Not Discussed Due to: Patient not available
--- OUTSIDE RECORDS SUMMARY | 2024-10-13 08:35 | XMS_ITS | Clinical Summary ---
Author Organization [facility] Address [address] [facility] 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 Respiratory Rate 16 07/31/2023 3:20 PM 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 Oxygen Saturation 95% 07/31/2023 3:45 PM 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 Inhaled Oxygen Concentration - - Weight 54.5 kg (120 lb 3.2 oz) 07/31/2023 12:05 PM 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 Height 172.7 cm (5' 7.99) 07/31/2023 12:[address] Body Mass Index 18.28 07/31/2023 12:05 PM 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 Plan of Treatment Health Maintenance Due Date [...] 2024 02/20/2022, 04/04/2021, 09/11/2020, Additional history exists LUNG CANCER SCREENING 03/13/2024 03/13/2023 PHQ-2 (once per calendar year) 2024 INFLUENZA VACCINE (Season Ended) 2025 02/20/2022, 04/04/2021, 05/31/2020, Additional history exists Pneumococcal Vaccine: 50+ Years (3 of 3 - PCV20 or PCV21) 05/31/2025 05/31/2020, 05/17/2008 RSV VACCINE (1 - 1-dose 75+ series) 09/10/2035 ZOSTER IMMUNIZATION Completed 05/31/2020, 9 HPV IMMUNIZATION Aged Out No longer e ligible based on patient's age to complete this topic MENINGITIS IMMUNIZATION Aged Out No l onger eligible based on patient's age to complete this topic Insurance [facility] Care Teams Schedule Announcer Relationship Specialty Start Date End Date Clinic, [address] [place] [address] [address] PCP - General 07/31/23
[2024-10-13 08:36] LABS: pH VBG 7.146 (7.32-7.43)
[2024-10-13 08:37] LABS: Basophils Percent Auto 0.7 % (0.0-3.0); Eosinophils Percent Auto 2.5 % (0.0-7.0); Hematocrit 45.2 % (37.0-53.0); Hemoglobin* 13.9 gm/dL (13.5-17.5); Immature Granulocytes Pct Auto 0.4 %; Lymphocytes Percent Auto 25.6 % (20-44); Mean Corpuscular HGB Conc 31 gm/dL (32-36); Mean Corpuscular Hemoglobin 32 pg (26-34); Mean Corpuscular Volume 103 fL (80-100); Monocytes Percent Auto 7.5 % (0.0-11.0); Neutrophils Percent Auto 63.3 % (42.0-72.0); Platelet Count* 307 K/uL (140-440); RDW Coefficient of Variation % 16.2 % (11.5-15.5); Red Blood Count 4.41 m/uL (4.30-5.90); White Blood Count* 15.57 K/uL (4.50-11.00)
--- OUTSIDE RECORDS SUMMARY | 2024-10-13 08:38 | XMS_ITS | Encounter Summary ---
Author Organization [facility] Address [address] [place] [address] Care Team Providers Care Ice Handler Name Role Phone Unavailable Primary Care Provider Unavailabl e Encounter Details Date Type Department Care Team (Late st Contact Info) Description 10/04/2024 Orders Only Division of Nephrology and Hypertension in [place], [place] [address] [place] [address] Claudio Jain Jr., D.O. [address] [place] [address] Social History Tobacco Use Types Packs/Day Years [...]
--- OUTSIDE RECORDS SUMMARY | 2024-10-13 08:39 | XMS_ITS | Encounter Summary ---
Author Organization [facility] Address [address] [place] [address] Care Team Providers Care Petal Shaper Hand Name Role Phone Unavailable Primary Care Provider Unavailabl e Encounter Details Date Type Department Care Team (Late st Contact Info) Description 09/29/2024 Orders Only Division of Nephrology and Hypertension in [place], [place] [address] [place] [phone] Danae Zelaya, FLAVIO, C.N.P., M.S.N. [address] [place] [phone] Pain Chest (Primary Dx) Social History Tobacco Use Types [...] as of this encounter Visit Diagnoses Diagnosis Pain Chest- Primary documented in this encounter
--- OUTSIDE RECORDS SUMMARY | 2024-10-13 08:40 | XMS_ITS | Encounter Summary ---
Author Organization [facility] Address [address] [place] [address] Care Team Providers Care Support Assistant Name Role Phone Unavailable Primary Care Provider Unavailabl e Encounter Details Date Type Department Care Team (Late st Contact Info) Description 10/11/2024 Orders Only Division of Nephrology and Hypertension in [place], [place] [address] [place] [phone] Danae Zelaya, FLAVIO, C.N.P., M.S.N. [address] [place] [phone] Social History Tobacco Use Types Packs/Day Years [...]
[2024-10-13 08:41] LABS: Troponin, Point-of-Care* 0.54 ng/ml (0.01-0.04)
[2024-10-13 08:41] LABS: Slide Review Reflex No
[2024-10-13] MEDS: ROCURONIUM BROMIDE 10 MG/ML inj 50 MG IV (08:41)
[2024-10-13] MEDS: 0.9 % SODIUM CHLORIDE 250 ml 250 ML IVPB (08:45)
[2024-10-13] MEDS: KETAMINE HCL 500 MG in 0.9 % SODIUM CHLORIDE 500 ML 500 ML 54 MG IVPB (08:45)
[2024-10-13] MEDS: MIDAZOLAM HCL 1 MG/ML inj 2 MG IVP (08:50)
--- NOTE | 2024-10-13 08:54 | PM.ANBPRC ---
[facility] Medical History Altered mental status ?R41.82 - Altered mental status, unspecified (ICD-10) Non-STEMI (non-ST elevated myocardial infarction) ?I21.4 - Non-ST elevation (NSTEMI) myocardial infarction (ICD-10) Smoking ?F17.200 - Nicotine dependence, unspecified, uncomplicated (ICD-10) Alcohol use disorder ?F10.90 - Alcohol use, unspecified, uncomplicated (ICD-10) COPD (chronic obstructive pulmonary disease) ?J44.9 - Chronic obstructive pulmonary disease, unspecified (ICD-10) Coronary artery disease ?I25.10 - Atherosclerotic heart disease of saxman coronary artery without angina pectoris (ICD-10) Stage 4 chronic kidney disease ?N18.4 - Chronic kidney disease, stage 4 (severe) (ICD-10) Pulmonary hypertension ?I27.20 - Pulmonary hypertension, unspecified (ICD-10) Right heart failure ?I50.810 - Right heart failure, unspecified (ICD-10) Heart failure with reduced ejection fraction ?I50.20 - Unspecified systolic (congestive) heart failure (ICD-10) Social History Narrative: Patient apparently lives in an apartment in [place]. Smokes a pack of cigarettes a day. He has a history of alcohol abuse but current consumption is unknown. Unable to discuss plan of care or goals of care What is your current living situation?: unable to answer Problems where you live: unable to answer Problems where you live details: unknown In the past 12 months, utilities in danger of being shut off: unable to answer In past 12 months, lack of transportation kept you from medical appts, meetings, work, or getting things needed for daily living: unable to answer In the past 12 mos, have been you worried that your food would run out before you had money to buy more?: unable to answer In the past 12 mos, the food you bought just didn't last and you didn't have money to buy more?: unable to answer Highest level of school completed/degree received: don't know Smoking Status: Current every day smoker Do you use any of these nicotine containing products: None Second hand tobacco smoke exposure: Yes How often do you have a drink containing alcohol: 4 or more times a week AUDIT-C Alcohol total score: 4 Non-prescribed substance use: denies use Non-prescribed substance use details: unknown How often does anyone, including family, friends and others, physically hurt you: unable to answer How often does anyone, including family, friends and others, insult or talk down to you: unable to answer How often does anyone, including family, friends and others, threaten you with harm: unable to answer How often does anyone, including family, friends and others, scream or curse at you: unable to answer service: No Meds Home Medications and Allergies Home Medications ?Medication ?Instructions ?Recorded ?Confirmed ?Type carvedilol 12.5 mg tablet 6.25 mg PO BID 05/18/23 10/13/24 History aspirin 81 mg chewable tablet 1 tab PO DAILY 05/17/24 10/13/24 History atorvastatin 40 mg tablet 40 mg PO QPM 05/17/24 10/13/24 History bumetanide 2 mg tablet 2 mg PO DAILY 05/17/24 10/13/24 History multivitamin with folic acid 400 1 tab PO DAILY 05/17/24 10/13/24 History mcg tablet (Daily-Ernestina (with folic acid)) Allergies Allergy/AdvReac Type Severity Reaction Status Date / Time ranitidine AdvReac itch Verified 10/13/24 08:13 Results Labs Labs: Laboratory Results - last 24 hr 10/13/24 10/13/24 08:18 08:23 WBC 15.57 H RBC 4.41 Hgb 13.9 Hct 45.2 MCV 103 H MCH 32 MCHC 31 L RDW Coeff of Martir 16.2 H Plt Count 307 Neut % (Auto) 63.3 Lymph % (Auto) 25.6 Fergus % (Auto) 7.5 Eos % (Auto) 2.5 Baso % (Auto) 0.7 Neut # (Auto) 9.90 H Lymph # (Auto) 4.00 H Fergus # (Auto) 1.20 H Eos # (Auto) 0.40 Baso # (Auto) 0.10 Abs Immat Gran (auto) 0.10 Imm/Tot Granulo (auto) 0.4 VBG pH 7.146 L* VBG pCO2 59 H VBG pO2 33.1 VBG HCO3 20 L POC Troponin I 0.54 H Vital Signs Vital Signs: Last Vital Signs Pulse 135 H 10/13/24 08:10 Resp 24 10/13/24 08:10 BP 152/141 H 10/13/24 08:10 Pulse Ox 88 10/13/24 08:20 O2 Del Method BiPAP 10/13/24 08:10 FiO2 50 10/13/24 08:10 Weight: 54 kg Anesthesia Procedures Airway Patient Location: ED Urgency: emergent Start Time: : Stop Time: : Start Date: 10/13/24 Stop Date: 10/13/24 BULLDOZER MECHANIC: Serena Limon Performed by: PAULA Preanesthetic Checklist: IV checked, risks and benefits discussed, monitors and equipment checked, pre-op evaluation and timeout performed Difficult Airway: No Indications for Airway Management: airway protection, hypercapnia, hypoxemia and respiratory failure Spontaneous Ventilation: present Sedation Level: deep Preoxygenated: Yes MILS Maintained Throughout: No Mask Difficulty Assessment: 1 - vent by mask Planned Trial Extubation: No Final Airway Type: endotracheal airway Number of Attempts at Approach: 1 Dentition Unchanged: Yes
[2024-10-13 08:55] LABS: Albumin* 4.7 g/dL (3.3-5.0); Chloride* 107 mmol/L (96-114)
[2024-10-13 08:56] LABS: Potassium* 5.9 mmol/L (3.6-5.1); Sodium* 143 mmol/L (135-149)
[2024-10-13 08:58] LABS: Blood Urea Nitrogen* 56 mg/dL (7-30); Creatinine* 6.7 mg/dL (0.5-1.5); Estimated Glomerular Filt Rate 9 ml/min
[2024-10-13 08:59] LABS: Alanine Aminotransferase* 20 U/L (4-50); Alkaline Phosphatase* 169 U/L (40-150); Anion Gap 17 mEq/L (7-15); Aspartate Amino Transferase* 46 U/L (12-35); Bilirubin Direct* 0.7 mg/dL (0.0-0.5); Calcium* 9.2 mg/dL (8.4-10.6); Carbon Dioxide* 19 mmol/L (20-32); Glucose* 212 mg/dL (60-115); Total Protein* 8.2 g/dL (6.0-8.3)
[2024-10-13 09:00] LABS: Ethanol* < 0.01 % (0.01-0.03)
[2024-10-13] MEDS: PIPERACILLIN/TAZOBACTAM 3.375 GM in 0.9 % SODIUM CHLORIDE Mini-bag 100 ML IVPB (09:11)
[2024-10-13] MEDS: ALBUTEROL SULFATE 2.5 MG/3 ML VIAL.NEB 5 MG NEB (09:11)
[2024-10-13 09:14] LABS: NT Pro B Type NatriureticPept* 21600 pg/mL
--- NOTE | 2024-10-13 10:01 | RESP.RT ---
Pt seen upon arrival with EMS Pt is well known to me from previous visits. RR mid 40's in respiratory distress/failure. Pt was to have dialysis today. Minimal aeration. Started on BIPAP, 14/5 at 50% PT RR did decrease into high 20s with VT of 500-600cc minute volumes of 20 plus at times however still in having respiratory distress, and V-60 BIPAP was having difficulty keeping up with his demand. Discussion=n with MD to intubate. Intubated via glidescope by Anesthesia. 7.0 ETT tt at the gum line. ETCO2 17, BBS with present, CXR done. PT lung compliance poor. difficult to ventilate decision to chemically paralyze for transfer. Vent setting VT 400 CC RR 15 peep 5cwp Fio2 100%, equating to a SPO2 0f 90-93%. CXR showing pulm edema and possible mass, pneumonia BBS still tight with inspiratory wheezing on R. 5.0mg of albuterol down ETT, 20 minutes later BBS much improved, increased aeration, and wheezing was gone. Transferred to medics for transport.
[2024-10-13] MEDS: PHENYLEPHRINE 100 MCG/ML SYRINGE 150 MCG IVP (10:52)
== END 2024-10-13 09:30 | disposition other institution (70) ==
PROVIDERS: Emergency Provider Family Medicine; PCP Internal Medicine Nephrology
DX: J96.01 Acute respiratory failure with hypoxia (principal); J81.1 Chronic pulmonary edema; R91.8 Other nonspecific abnormal finding of lung field; F17.210 Nicotine dependence, cigarettes, uncomplicated
CPT/HCPCS: 31500; 36415; 71045; 80048; 80076; 82077; 82803; 83880; 84484; 85025; 94640; 94660; 94761; 99285; 99291; 99292; J1938; J2250; J2371; J2543; J2704; J3490; J7030; J7050

== ENCOUNTER 2024-10-13 09:00 | Outpatient (CLI) | payer MEDICAID, SELFPAY | END 2024-10-13 09:01 | disposition home or self-care (01) | LOC: AMB 10-14 11:32 | PROVIDERS: Visit Provider Family Medicine | DX: J96.01 Acute respiratory failure with hypoxia (principal) | CPT/HCPCS: A0425; A0434 ==

== ENCOUNTER 2024-10-20 16:24 | Outpatient (CLI) | payer MEDICAID, SELFPAY | END 2024-10-20 16:25 | disposition home or self-care (01) | LOC: AMB 10-22 09:40 | PROVIDERS: Visit Provider Family Medicine | DX: R06.09 Other forms of dyspnea (principal) | CPT/HCPCS: A0425; A0427 ==

== ENCOUNTER 2024-10-20 16:35 | Emergency (ER) | payer MEDICAID, SELFPAY ==
--- OUTSIDE RECORDS SUMMARY | 2024-10-05 09:24 | XMS_ITS | Encounter Summary ---
Author Organization [facility] Address [address] [place] [id number] Care Team Providers Care Daycare Provider Name Role Phone Unavailable Primary Care Provider Unavailabl e Reason for Visit * MRI/CAT/PET Scan (Routine) - Closed Specialty Diagnoses / Procedures Referred By Ju haji Referred To Contact Radiology Diagnoses Pain Chest Procedures CT Chest without IV Contrast CT Chest with IV Contrast Danae Zelaya APRN C.N.P., M.S.N. [address] [place] [phone] Phone: tel: fax: [facility] Region Referral ID Status Reason Start Date Expiration Date Visits Re quested Visits Authorized [id number] Closed 09/29/2024 12/30/2025 1 1 Encounter Details Date Type Department Care Team (Latest Contact Info) Description 10/05/2024 9:24 AM CDT - 10/05/2024 11:59 PM CDT Hospital Encounter Department of Radiology in [address] [phone] Danae Zelaya APRN, C.N.P., M.S.N. [address] [place] [phone] Pain Chest Discharge Disposition: Home or Self Care Social History Tobacco Use Types Packs/Day Years Used Date Smoking Tobacco: Some Days Cigarettes Alcohol Use Standard Drinks/Week Comments Yes 0 (1 standard drink = 0.6 oz pur e alcohol) Nutrition Answer Date Recorded Nutrition: EVOO Fat Source Unknown 03/13 Nutrition: Servings of Fruits/Vegetables per Day Not on file 03/13/2023 Dental Answer Date Recorded Dental: Regular Dentist Unknown 03/13/20 23 Sex and Gender Information Value Date Recorded Sex Assigned at Not on file Legal Sex Male 1:31 AM CDT Gender Identity Not on file Sexual Orientation Not on file documented as of this encounter Medications at Time of Discharge acetaminophen (TylenoL) 500 mg tablet Take 2 tablets (1,000 mg total) by mouth every 8 (eight) hours as needed for mild pain or score 1-3 of 10 or fever (Notify service prior to first administration for fever). 360 tablet 09/29/2024 5:10 PM CDT 09/29/2024 11/29/19 25 amLODIPine (NORVASC) 5 mg tablet Take 1 tablet (5 mg total) by mouth daily. 90 tablet 3 03/19/2023 3:58 PM CDT 03/19/[address] tablet Take 1 tablet (81 mg total) by mouth daily. 90 tablet 3 10/05/2024 12:18 PM CDT 10/04/2024 10/05/19 26 atorvastatin (Lipitor) 40 mg tablet Take 1 tablet (40 mg total) by mouth daily. 90 tablet 3 10/05/2024 12:19 PM CDT 10/04/2024 10/05/19 26 bumetanide (Bumex) 2 mg tablet Take 1 tablet (2 mg total) by mouth daily. 90 tablet 3 10/05/2024 12:18 PM CDT 10/04/2024 10/05/19 26 carvediloL (Coreg) 12.5 mg tablet Take 1 tablet (12.5 mg total) by mouth 2 (two) times a day with meals. 180 tablet 3 10/05/2024 12:18 PM CDT 10/04/2024 fluticasone propion-salmeter oL (Advair Diskus) 250-50 mcg/dose diskus inhaler Inhale 1 puff 2 (two) times a day. Rinse mouth with water after use to reduce aftertaste and incidence of candidiasis. Do not swallow. 60 each 11 10/05/2024 12:19 PM CDT 10/04/2024 multivitamin renal failure (Dialyvite) 100-1 mg tablet Take 1 tablet by mouth daily. 90 tablet 3 10/05/2024 12:19 PM CDT 10/04/2024 10/05/19 26 multivitamin-iro n-FA 18-400 mg-mcg tablet Take 1 tablet by mouth daily. 90 tablet 3 10/05/2024 12:18 PM CDT 10/04/2024 10/05/19 26 nystatin (Nystop) 100,000 unit/gram powder Apply 1 Application topically 3 (three) times a day. Apply to his groin area 15 g 07/23/2024 sodium bicarbonate 650 mg tablet Take 2 tablets (1,300 mg total) by mouth 3 (three) times a day. 180 tablet 3 03/19/2023 documented as of this encounter Plan of Treatment Not on file documented as of this encounter Procedures Procedure Name Priority Date/Time Associated Diagnosis Comments CT CHEST WITHOUT IV CONTRAST RAD - Routine (most inpatients and all outpatients) 10/05/2024 10:23 AM CDT Pain Chest documented in this encounter Results * CT Chest without IV Contrast (10/05/2024 10:23 AM CDT) Anatomical Region Laterality Modality Chest, Thoracic RST LOS, Tho racic ARZ LOS, Thoracic FLA LOS N/A Computed Tomography Impressions 10/05/2024 11:49 AM CDT 1. Masslike consolidation within the right lower lobe which is estimated at approximately 9 cm in greatest dimension. There are adjacent spiculated satellite nodules which are suspicious in morphology for satellite metastasis. Additional areas of peripherally distributed consolidation groundglass opacity remote from the dominant mass which may reflect changes of postobstructive pneumonia/pneumonitis. --Chart review demonstrates patient underwent prior endoscopy with sampling. Pathology consistent with adenocarcinoma (08/23/2024). --Small right pleural effusion. --Mild enlargement of a lower right paratracheal lymph node which retains a normal fatty hilus. --Small, spiculated and potentially cavitary left lower lobe nodule measuring approximately 8 mm in greatest dimension. 2. Below the diaphragm, partial inclusion of multiple cystic pancreatic lesions, largest which included the [id number] on today's study appears enlarged from a prior study of 03/13/2023. Narrative 10/05/2024 11:49 AM CDT EXAM: CT CHEST WITHOUT IV CONTRAST COMPARISON: CT 03/13/2020. FINDINGS: Within the right lower lobe, there is masslike consolidation which is estimated at approximately 9.2 x 5.6 x 9.2 cm in size. There are adjacent linear/nodular opacities within the peripheral portion of the right lower lobe with additional spiculated nodules observed in right greater than left lower lobes, largest seen on series 4, image 560 measuring approximately 14 x 14 mm in size. Smaller potentially cavitary nodule within the periphery of the left lower lobe measuring approximately 7 x 8 mm in size (4/545). Mild upper lobe predominant centrilobular emphysema. Mild bronchial wall thickening with small quantity of layering secretions within the distal trachea and proximal portions of the bronchus intermedius. Cardiac size is normal. Multivessel coronary arterial atherosclerotic calcification. Diffuse aortic atheromatous calcification with stable aortic course and caliber. A right IJ approach dialysis catheter is present in expected position. No supraclavicular or axillary adenopathy. Prominent lower right paratracheal lymph node measuring approximately 11 mm in short axis dimension maintains a normal fatty hilus. Below the diaphragm, several hemorrhagic/proteinaceous bilateral renal cysts. Stable 2.6 cm left adrenal adenoma. Multiple cystic lesions are observed throughout the included portions of the pancreas with concomitant pancreatic ductal ectasia and dilatation. Largest of these lesions is estimated at approximately 2.7 x 2.4 cm in size, and is incompletely included within the [id number]-lw-nbic. Cholecystectomy. Diffuse changes of spondylosis. No suspicious appearing lytic or blastic osseous lesion. Several healed bilateral rib fracture deformities. 3D maximum intensity projection (MIP) images were created on a dependent workstation as ordered by the treating provider and reviewed by the radiologist to increase sensitivity for detection of pulmonary nodules. Procedure Note Martinez Eng M.D. - 10/05/2024 EXAM: CT CHEST WITHOUT IV CONTRAST COMPARISON: CT 03/13/2020. FINDINGS: Within the right lower lobe, there is masslike consolidation which isestimated at approximately 9.2 x 5.6 x 9.2 cm in size. There are adjacentlinear/nodular opacities within the peripheral portion of the right lowerlobe with additional spiculated nodules observed in right greater than left lower lobes, largest seen onseries 4, image 560 measuring approximately 14 x 14 mm in size. Smallerpotentially cavitary nodule within the periphery of the left lower lobemeasuring approximately 7 x 8 mm in size (4/545). Mild upper lobe predominant centrilobular emphysema. Mild bronchial wallthickening with small quantity of layering secretions within the distaltrachea and proximal portions of the bronchus intermedius. Cardiac size is normal. Multivessel coronary arterial atheroscleroticcalcification. Diffuse aortic atheromatous calcification with stableaortic course and caliber. A right IJ approach dialysis catheter ispresent in expected position. No supraclavicular or axillary adenopathy. Prominent lower rightparatracheal lymph node measuring approximately 11 mm in short axisdimension maintains a normal fatty hilus. Below the diaphragm, several hemorrhagic/proteinaceous bilateral renalcysts. Stable 2.6 cm left adrenal adenoma. Multiple cystic lesions areobserved throughout the included portions of the pancreas with concomitantpancreatic ductal ectasia and dilatation. Largest of these lesions is estimated at approximately 2.7 x2.4 cm in size, and is incompletely included within the [id number]-me-[id number].Cholecystectomy. Diffuse changes of spondylosis. No suspicious appearing lytic or blasticosseous lesion. Several healed bilateral rib fracture deformities. 3D maximum intensity projection (MIP) images were created on a dependentworkstation as ordered by the treating provider and reviewed by theradiologist to increase sensitivity for detection of pulmonary nodules. IMPRESSION: 1. Masslike consolidation within the right lower lobe which is estimatedat approximately 9 cm in greatest dimension. There are adjacent spiculatedsatellite nodules which are suspicious in morphology for satellitemetastasis. Additional areas of peripherally distributed consolidation groundglass opacity remote from thedominant mass which may reflect changes of postobstructivepneumonia/pneumonitis. --Chart review demonstrates patient underwent prior endoscopy withsampling. Pathology consistent with adenocarcinoma (08/23/2024). --Small right pleural effusion. --Mild enlargement of a lower right paratracheal lymph node which retainsa normal fatty hilus. --Small, spiculated and potentially cavitary left lower lobe nodulemeasuring approximately 8 mm in greatest dimension. 2. Below the diaphragm, partial inclusion of multiple cystic pancreaticlesions, largest which included the [id number] on today's study appearsenlarged from a prior study of 03/13/2023. Danae Zelaya APRN C.N.P., M.S.N. IMG CT PROCEDURE S Final Result documented in this encounter Visit Diagnoses Diagnosis Pain Chest documented in this encounter
[2024-10-20] VITALS (22 sets, daily range): BP systolic 140–189; BP diastolic 75–137; PULSE 108–128; RESP 12–32; TEMP 36.2; O2SAT 95–98
--- OUTSIDE RECORDS SUMMARY | 2024-10-20 16:38 | XMS_ITS | Clinical Summary ---
Author Organization [facility] Address [address] [place] [address] Care Team Providers Care Lap Maker Name Role Phone Unavailable Primary Care Provider Unavailabl e Source Comments Patient records contain information from all sites at [facility]. For routine questions regarding patient records, call [phone] during business hours, M-F 8:00 AM - 5:00 PM Central Time. Record requests for emergency care only can be directed to [phone] at any time.[facility] Allergies Active Allergy Reactions Criticality Noted Date [...] daily. 90 tablet 3 5 12:18 PM [facility] 10/05/19 026 Active multivitamin renal failure (Dialyvite) 100-1 mg tablet Take 1 tablet by mouth daily. 90 tablet 3 5 12:19 PM [facility] 10/05/19 [address] [...] Only Division of Nephrology and Hypertension in [place] [address] [place] [phone] Danae Zelaya APRN, C.N.P., M.S.N. 10/08/2024 Orders Only Division of Nephrology and Hypertension in [place] [address] [place] [phone] Danae Zelaya APRN, C.N.P., M.S.N. Pneumonia (Primary Dx) 10/06/2024 Orders Only Division of Nephrology and Hypertension in [place] [address] [place] [phone] Danae Zelaya APRN, C.N.P., M.S.N. 10/05/2024 9:24 AM CDT - 10/05/2024 11:59 PM CDT Hospital Encounter Department of Radiology in [address] [phone] Danae Zelaya APRN, C.N.P., M.S.N. Pain Chest Discharge Disposition: Home or Self Care 10/04/2024 Orders Only Division of Nephrology and Hypertension in [place], [place] [address] [place] [address] Claudio Jain Jr., D.O. 09/29/2024 Documentation Division of Nephrology and Hypertension in [place], [place] [address] [place] [address] Danae Zelaya APRN C.N.PChristiane, M.S.N. 09/29/2024 Orders Only Division of Nephrology and Hypertension in [place], [place] [address] [place] [phone] Danae Zelaya APRN, C.N.Mary, M.S.N. Pain Chest (Primary Dx) 09/17/2024 Orders Only Division of Nephrology and Hypertension in [place], [place] [address] [place] [address] External, Ordering Provider, MClarissa 08/09/2024 Orders Only Division of Nephrology and Hypertension in [place], [place] [address] [place] [address] Claudio Jain Jr., D.O. 07/23/2024 Orders Only Division of Nephrology and Hypertension, [facility], in [place], [place] [address] [place] [address] Danae Zelaya APRN C.N.PChristiane, M.S.N. from Last 3 Months Social History Tobacco [...] (Annual PHQ-2) 05/26/2024 Sodium Level 08/19/2025 08/19/2024, 03/11/2024, 08/18/2024, Additional history exists Creatinine Level (Kidney Function Test) 08/23/2025 08/23/2024, 08/22/2024, 08/19/2024, Additional history exists Potassium Level 09/17/2025 09/17/2024, 03/3 05/2024, 08/22/2024, Additional history exists Fasting Glucose for [...] cystic pancreatic lesions, largest which included the deymx-sf-vyya on today's study appears enlarged from a [...] size, and is incompletely included within the kktrn-at-uzcc. Cholecystectomy. Diffuse changes of spondylosis. No suspicious [...] size, and is incompletely included within the ytiuc-ej-yina.Cholecystectomy. Diffuse changes of spondylosis. No suspicious appearing [...] multiple cystic pancreaticlesions, largest which included the fvjvh-vx-tvyc on today's study appearsenlarged from a prior study of 03/13/2023. Danae Zelaya APRN C.N.P., M.S.N. IMG CT PROCEDURE S Final Result * (ABNORMAL) BUN (Blood Urea Nitrogen) (09/17/2024 2:12 PM CDT) Only the most recent of2 resultswithin the time period is included. EXT BUN (Blood Urea Nitrogen) 6(L) 7 - 30 mg/dL [facility] 09/17/2024 2:12 PM CDT Narrative [facility] - 09/20/2024 7:07 AM CDT Source result document attached to Order Number [id number] ([id number]) dated 09/17/2024. External results verified in Extract by Nabila Bird on 09/20/2024 at 07:04 AM. us Ordering Provider Quan Xiong LAB BLOOD ADD-ON Final Result Performing Organization Address [facility] de Phone Number [employer] [facility] [address] [place] [address], [place] [phone] * (ABNORMAL) CBC with Differential, Blood (09/17/2024 10:38 AM CDT) EXT Leukocytes 9.18 4.50 - 11.00 K/uL [facility] EXT RBC 3.48(L) 4.30 - 5.90 m/uL [facility] EXT Hemoglobin 10.9(L) 13.5 - 17.5 gm/dL [facility] EXT Hematocrit 35.2(L) 37.0 - 53.0 % [facility] EXT MCV 101(H) 80 - 100 fL [facility] EXT Platelet Count 462(H) 140 - 440 K/uL [facility] 09/17/2024 10:3 8 AM CDT [facility] - 09/20/2024 7:07 AM CDT Source result document attached to Order Number [id number] ([id number]) dated 09/17/2024. External results verified in Extract by Nabila Bird on 09/20/2024 at 07:04 AM. us Ordering Provider Quan Xiong LAB BLOOD ADD-ON Final Result Performing Organization Address [facility] de Phone Number [employer] [facility] [address] [place] [id number], [place] [phone] * (ABNORMAL) Potassium (09/17/2024 10:38 AM CDT) EXT Potassium 5.3(H) 3.6 - 5.1 mmol/L [facility] 09/17/2024 10:3 8 AM CDT [facility] - 09/20/2024 7:07 AM CDT External results verified in Extract by Nabila Bird on 09/20/2024 at 07:04 AM. us Ordering Provider External Inga LAB BLOOD ADD-ON Final Result [facility] [address] [place] [address], [place] [phone] * (ABNORMAL) Lipid Panel (03/15/2023 5:56 AM [...] P.A.-C. LAB BLOOD ADD-ON Final Resu lt [facility] [address] [place] [address], [place] DTL [facility] [address] [place] [address] * HIV-1/-2 Ag and Ab Screen, Plasma (03/14/2023 6:31 PM CDT) HIV-1/-2 Ag and Ab Screen, P Negative Negative 03/14/2023 9:01 PM CDT [facility] Comment: Negative result does not rule out HIV infection. If exposure to HIV infection occurred <14 days ago, contact the laboratory to request addition of HIV-1/HIV-2 RNA detection, Plasma (HIP12). Blood (Blood, Venous) 03/14/2023 6:31 PM CDT 03/14/2023 8:20 PM CDT Sonido Wooten P.A.-C. LAB MICROBIOLOGY - BLOOD OR DERABLES Final Result [facility] [address] [place] [address] [facility] [address] [place] [address] * (ABNORMAL) HCV Ab Scrn w/Reflex to HCV PCR, Serum (03/14/2023 6:31 PM CDT) HCV Ab Screen, S Reactive(A ) Negative 03/14/2023 11:27 PM CDT [facility] Comment: Supplemental testing for HCV RNA is ordered to rule out active HCV infection. Ofwcpt-ri-ftacad ratio is >=1.00 and <8.00. Blood (Blood, Venous) 03/14/2023 6:31 PM CDT 03/14/2023 8:21 PM CDT Sonido Wooten P.A.-C. LAB MICROBIOLOGY - BLOOD OR DERABLES Final Result [facility] [address] [place] [address] [facility] [address] [place] [address] from Last 3 Months or Most Recently Relevant to Health Maintenance Insurance [facility] Advance Directives For more information, please contact: [phone] * Full Code (Latest Code Status on File) Date Activated Date Inactivated Comments 03/13/2023 4:37 AM 03/19/2023 5:51 PM Question Answer Comments Full Code: Not Discussed Due to: Patient not available
--- OUTSIDE RECORDS SUMMARY | 2024-10-20 16:38 | XMS_ITS | Clinical Summary ---
Author Organization [facility] Address [address] [facility] [place] [address] Care Team Providers Care Gang Leader Name Role Phone [facility] Primary Care Provider Allergies Active Allergy Reactions [...] on file Legal Sex Male 9:52 PM DIRECTOR LIFE Gender Identity Not on file Sexual Orientation Not on file Last Filed Vital Signs Vital Sign Reading Time Taken Comments Blood Pressure 116/67 07/31/2023 3:45 PM DIRECTOR LIFE Pulse 49 07/31/2023 3:45 PM DIRECTOR LIFE Temperature 36.4 C (97.5 F) 07/31/2023 3:15 PM DIRECTOR LIFE Respiratory Rate 16 07/31/2023 3:20 PM DIRECTOR LIFE Oxygen Saturation 95% 07/31/2023 3:45 PM DIRECTOR LIFE Inhaled Oxygen Concentration - - Weight 54.5 kg (120 lb 3.2 oz) 07/31/2023 12:05 PM DIRECTOR LIFE Height 172.7 cm (5' 7.99) 07/31/2023 12:[address] Body Mass Index 18.28 07/31/2023 12:05 PM DIRECTOR LIFE Plan of Treatment Health Maintenance Due Date Last Done Comments ADVANCE CARE PLANNING 1960 ANNUAL REVIEW OF HM ORDERS [address] CT COLONOGRAPHY 1960 DIABETES SCREENING 1960 FIT 1960 FLEX SIG 1960 LIPID 1960 sDNA (Cologuard) 1960 YEARLY PREVENTIVE VISIT 09/10/1963 COLONOSCOPY 1970 COLORECTAL CANCER SCREENING 1970 HIV SCREENING 09/10/1975 HEPATITIS C SCREENING 1978 DTAP/TDAP/TD VACCINE (2 - Td or Tdap) 10/09/2022 10/09/2012, 01/16/2003 COVID-19 VACCINE ( season) 2024 02/20/2022, 04/04/2021, 09/11/2020, Additional history exists LUNG CANCER SCREENING 03/13/2024 03/13/2023 PHQ-2 (once per calendar year) 2024 INFLUENZA VACCINE (Season Ended) 2025 02/20/2022, 04/04/2021, 05/31/2020, Additional history exists PNEUMOCOCCAL VACCINE 50+ YEARS (3 of 3 - PCV20 or PCV21) 05/31/2025 05/31/2020, 05/17/2008 RSV VACCINE (1 - 1-dose 75+ series) 09/10/2035 ZOSTER VACCINE Completed 05/31/2020, 02/05/2019 HPV VACCINE Aged Out No longer eligi ble based on patient's age to complete this topic MENINGITIS VACCINE Aged Out No longer eligible based on patient's age to complete this topic Insurance [facility] Care Teams Gang Leader Relationship Specialty Start Date End Date [facility], [address] [address] PCP - General 07/31/23
--- OUTSIDE RECORDS SUMMARY | 2024-10-20 16:39 | XMS_ITS | Encounter Summary ---
Author Organization [facility] Address [address] [place] [address] Care Team Providers Care Sink Maker Name Role Phone Unavailable Primary Care Provider Unavailabl e Encounter Details Date Type Department Care Team (Late st Contact Info) Description 10/11/2024 Orders Only Division of Nephrology and Hypertension in [place], [place] [address] [place] [phone] Danae Zelaya, FLAVIO, C.N.P., M.S.N. [address] [place] [phone] Social History Tobacco Use Types Packs/Day Years [...]
--- OUTSIDE RECORDS SUMMARY | 2024-10-20 16:39 | XMS_ITS | Encounter Summary ---
Author Organization [facility] Address [address] [place] [address] Care Team Providers Care Finger Buffs Assembler Name Role Phone Unavailable Primary Care Provider Unavailabl e Encounter Details Date Type Department Care Team (Late st Contact Info) Description 09/29/2024 Documentation Division of Nephrology and Hypertension in [place], [place] [address] [place] [phone] Danae Zelaya APRN C.N.P., M.S.N. [address] [place] [phone] Social History Tobacco Use Types Packs/Day Years [...] on file documented as of this encounter Progress Notes * Danae Zelaya APRN, C.N.P., M.S.N. - 09/29/2024 2:04 PM CDT Mr. Elvin Reardon is a(n) 63 y.o. with a history of ESRD with recent initiation of dialysis, [facility] on Friday, Friday and Friday morning schedule through his right IJ tunneled hemodialysis catheter, hypertension, COPD, tobacco use, alcohol abuse disorder, CAD, pulmonary hypertension, chronic systolic congestive heart failure with EF 2 3% on 03/13/2023. Today 09/29/2024, he complains of right side lung area pain but denies fever, rigors or recent trauma. 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 Follow-up plan unknown at this point. We will repeat chest CT at [facility] on 10/05/2024 to rule out infection, PE, pneumothorax or fracture. He is prescribed with Tylenol 1000 mg every 8 hours for pain control. documented in this encounter Plan of Treatment Not on file documented as of this encounter Visit Diagnoses Not on filedocumented in this encounter
--- OUTSIDE RECORDS SUMMARY | 2024-10-20 16:39 | XMS_ITS | Encounter Summary ---
Author Organization [facility] Address [address] [place] [address] Care Team Providers Care Animal Control Officer Name Role Phone Unavailable Primary Care Provider Unavailabl e Encounter Details Date Type Department Care Team (Late st Contact Info) Description 10/08/2024 Orders Only Division of Nephrology and Hypertension in [place], [place] [address] [place] [phone] Danae Zelaya, FLAVIO, C.N.P., M.S.N. [address] [place] [phone] Pneumonia (Primary Dx) Social History Tobacco Use Types [...] as of this encounter Visit Diagnoses Diagnosis Pneumonia- Primary documented in this encounter
--- OUTSIDE RECORDS SUMMARY | 2024-10-20 16:39 | XMS_ITS | Encounter Summary ---
Author Organization [facility] Address [address] [place] [address] Care Team Providers Care Stenotype Operator Name Role Phone Unavailable Primary Care Provider Unavailabl e Encounter Details Date Type Department Care Team (Late st Contact Info) Description 10/04/2024 Orders Only Division of Nephrology and Hypertension in [place], [place] [address] [place] [address] Claudio Jain Jr., D.O. [address] [place] [address] Social History Tobacco Use Types Packs/Day Years [...]
--- OUTSIDE RECORDS SUMMARY | 2024-10-20 16:39 | XMS_ITS | Encounter Summary ---
Author Organization [facility] Address [address] [place] [address] Care Team Providers Care Steward/Stewardess Banquet Name Role Phone Unavailable Primary Care Provider Unavailabl e Encounter Details Date Type Department Care Team (Late st Contact Info) Description 09/29/2024 Orders Only Division of Nephrology and Hypertension in [place], [place] [address] [place] [phone] Danae Zelaya, FLAVIO, C.N.P., M.S.N. [address] [place] [phone] Pain Chest (Primary Dx) Social History Tobacco [...]
--- OUTSIDE RECORDS SUMMARY | 2024-10-20 16:39 | XMS_ITS | Encounter Summary ---
Author Organization [facility] Address [address] [place] [address] Care Team Providers Care Long Distance Billing Operator Name Role Phone Unavailable Primary Care Provider Unavailabl e Encounter Details Date Type Department Care Team (Late st Contact Info) Description 10/06/2024 Orders Only Division of Nephrology and Hypertension in [place], [place] [address] [place] [phone] Danae Zelaya, FLAVIO, C.N.P., M.S.N. [address] [place] [phone] Social History Tobacco Use Types Packs/Day Years [...]
--- OUTSIDE RECORDS SUMMARY | 2024-10-20 16:39 | XMS_ITS | Encounter Summary ---
Author Organization [facility] Address [address] [place] [address] Care Team Providers Care Financial Aid Name Role Phone Unavailable Primary Care Provider Unavailabl e Encounter Details Date Type Department Care Team (Late st Contact Info) Description 09/17/2024 Orders Only Division of Nephrology and Hypertension in [place], [place] [address] [place] [address] External, Ordering ProviderInga Social History Tobacco Use Types Packs/Day Years [...] Procedure Name Priority Date/Time Associated Diagnosis Comments BUN (BLOOD UREA NITROGEN), S/P Routine 09/17/2024 2:12 PM CDT CBC WITH DIFFERENTIAL, B Routine 09/17/2024 10:38 AM CDT BUN (BLOOD UREA NITROGEN), S/P Routine 09/17/2024 10:38 AM CDT POTASSIUM, S/P Routine 09/17/2024 10:38 AM CDT documented in this encounter Results * (ABNORMAL) BUN (Blood Urea Nitrogen) (09/17/2024 2:12 PM CDT) EXT BUN (Blood Urea Nitrogen) 6(L) 7 - 30 mg/dL [facility] 09/17/2024 2:12 PM CDT Narrative [facility] - 09/20/2024 7:07 AM CDT Source result document attached to Order Number [id number] ([id number]) dated 09/17/2024. External results verified in Extract by Nabila Bird on 09/20/2024 at 07:04 AM. us Ordering Provider External Inga LAB BLOOD ADD-ON Final Result [facility] NA [facility] [address] [place] [address] * (ABNORMAL) CBC with Differential, Blood (09/17/2024 10:38 AM CDT) Pathologist [facility] EXT Leukocytes 9.18 4.50 - 11.00 K/uL [facility] EXT RBC 3.48(L) 4.30 - 5.90 m/uL [facility] EXT Hemoglobin 10.9(L) 13.5 - 17.5 gm/dL [facility] EXT Hematocrit 35.2(L) 37.0 - 53.0 % [facility] EXT MCV 101(H) 80 - 100 fL [facility] EXT Platelet Count 462(H) 140 - 440 K/uL [facility] 09/17/2024 10:3 8 AM CDT Narrative [facility] - 09/20/2024 7:07 AM CDT Source result document attached to Order Number [id number] ([id number]) dated 09/17/2024. External results verified in Extract by Nabila Bird on 09/20/2024 at 07:04 AM. us Ordering Provider Quan Xiong LAB BLOOD ADD-ON Final Result Performing Organization Address [facility] de Phone Number [facility] [address] [place] [address], [facility] [phone] * BUN (Blood Urea Nitrogen) (09/17/2024 10:38 AM CDT) EXT BUN (Blood Urea Nitrogen) 30 7 - 30 mg/dL [facility] 09/17/2024 10:3 8 AM CDT Narrative [facility] - 09/20/2024 7:07 AM CDT Source result document attached to Order Number [id number] ([id number]) dated 09/17/2024. External results verified in Extract by Nabila Bird on 09/20/2024 at 07:04 AM. us Ordering Provider Quan Xiong LAB BLOOD ADD-ON Final Result Performing Organization Address [facility] de Phone Number [facility] [address] [place], [place] [address] [phone] * (ABNORMAL) Potassium (09/17/2024 10:38 AM CDT) EXT Potassium 5.3(H) 3.6 - 5.1 mmol/L [facility] 09/17/2024 10:3 8 AM CDT Narrative [facility] - 09/20/2024 7:07 AM CDT External results verified in Extract by Nabila Bird on 09/20/2024 at 07:04 AM. us Ordering Provider Quan Xiong LAB BLOOD ADD-ON Final Result Performing Organization Address [facility] de Phone Number [facility] [address] [place] [address], [facility] [phone] documented in this encounter Visit Diagnoses Not on filedocumented in this encounter
--- OUTSIDE RECORDS SUMMARY | 2024-10-20 16:39 | XMS_ITS | Clinical Summary ---
Author Organization [facility] Address [facility] [place] [address] Care Team Providers Care Monotype Mechanic Name Role Phone Pcp, No Unavailable Unavailable Shelia Dietrich DO Primary Care Provider [phone] Merari Jenkins RN Unavailable Allergies Active Allergy Reactions Criticality Noted Date Comments Ranitidine Itching 05/18/2023 Medications aspirin chewable 81 mg chewable tabletIndication s:Hypertension CHEW 1 TABLET (81 MG) BY MOUTH ONCE DAILY. 90 Tablet 3 4 Active WalkerIndication s:Foot pain, bilateral Walker with front wheels for home use. 1 Each 4 Active atorvastatin (LIPITOR) 40 mg tabletIndication s:Lipid disorder Take 1 Tablet (40 mg) by mouth at bedtime. 30 Tablet 05/25/2024 4:01 PM ORNAMENT STITCHER 4 Active multivitamin with folic acid 0.4 [...] same capsule for full dose. Active fluticasone propion-salmeter oL (Advair Diskus) 250-50 mcg/Dose diskus inhaler Inhale 1 Puff by mouth every 12 hours. Active calcitrioL 0.25 mcg capsule Take 0.75 mcg by mouth. With dialysis Active carvediloL 12.5 mg tabletIndication s:Hypertension Take 1 Tablet (12.5 mg) by mouth two times daily with meals. 60 Tablet 08/24/2024 11:01 AM CDT Active oxygen-air delivery systemsIndicatio ns:Chronic obstructive pulmonary disease, unspecified COPD type (HC) Oxygen for home use. Liters per minute: 2 per nasal cannula. Frequency of use: Continuous with portability;. Length of need: 999 Months. 1 Each Active Active Problems Problem Noted Date Diagnosed [...] Encounters Date Type Department Care Team Description 09/23/2024 Telephone [facility] [address] [place] [address] Shelia Dietrich, DO Appointment 09/02/2024 Telephone [facility] [address] [place] [address] hSelia Dietrich, DO Follow Up 08/31/[address] [place] [address] Niesha Acosta NP 08/26/2024 Telephone [facility] [address] [facility] [place] [phone] [facility] Cancer Referral ( Non-small cell cancer of right lung (HC) [C34.91]) 08/26/[address] [place] [address] Edilberto Dial MD Results (BIOPSY RESULTS) 08/26/2024 Telephone [facility] [address] [address] Archie August MD Error-please disregard 08/25/2024 Patient Outreach [facility] [address] [place] [address] Aparna Gilmore, RN Primary RN Care Management; Hospital F/U (LACE 65) 08/23/2024 Travel 08/19/2024 2:50 PM CDT Anesthesia Event [facility] [address] [place] [address] Sue Briceño CRNA Sangmo, Tsering, CRNA 08/19/2024 1:24 PM CDT - 08/19/2024 3:28 PM CDT Surgery [facility] [address] [place] [address] Edilberto Dial MD BRONCHOSCOPY ENDOBRONCHIAL ULTRASOUND FINE NEEDLE ASPIRATE 08/19/2024 Travel 08/17/2024 2:18 AM CDT - 08/24/2024 12:02 PM CDT Hospital Encounter [facility] [address] [place] [address] Doctors([facility]), [facility], MD Jethro Chester, MD Brody Lynn, Amy Shah, Ivette Munoz, JAIME [facility] Internal Hypertension (Primary Dx); Chronic obstructive pulmonary disease, unspecified COPD type (HC) Discharge Disposition: Home Self Care from Last [...] on file Legal Sex Male 4:18 PM ORNAMENT STITCHER Gender Identity Not on file Sexual Orientation [...] 174 cm (5' 8.5) 05/17/2024 3:00 PM ORNAMENT STITCHER Body Mass Index 17.14 05/17/2024 3:00 PM ORNAMENT STITCHER Plan of Treatment Upcoming Encounters Date Type Department Care Team (Late st Contact Info) Description 10/26/2024 10:40 AM CDT Office Visit [facility] [address] [place] [address] Alyssa Crane MD [address] [place] [address] Health Maintenance Due Date Last Done Comments Depression screening for age 12+ 1972 HIV for age 15-65 09/10/1975 Hepatitis B series for 19+ ( 1 of 3 - Risk Dialysis 4-dose series) 1980 Colonoscopy through age 75 2005 Lipids for age 45-75 2005 Pneumococcal series for age 50+ (3 of 3 - PPSV23, PCV20 or PCV21) 07/26/2020 05/31/2020, 05/17/2008 RSV vaccine for adults or (1 - Risk 60-74 years 1-dose series) 2020 Tetanus booster 10/09/2022 10/09/2012, 01/16/2003 BMI (ht and wt on same day) for age 18+ 07/27/2024 07/28/2023 COVID-19 vaccine series (6 - Pfizer risk season) 2024 05/08/2024, 02/20/2022, 04/04/2021, Additional history [...] PM CDT AFB CULTURE, STAIN Today 08/19/2024 4:21 PM CDT BRONCHIAL CULTURE, STAIN Today 08/19/2024 4:21 PM CDT BAL COUNT AND DIFF Today 08/19/2024 4: 21 PM CDT ELY PREP, OTHER SOURCE Today 08/19/2024 4:21 PM CDT FUNGUS CULT, OTHER SOURCE Today 08/19/2024 4:21 PM CDT ANAEROBIC CULTURE Today 08/19/2024 4:2 1 PM CDT AEROBIC BACTERIAL CULTURE, STAIN Today 08/19/2024 3:54 PM CDT ACTINOMYCES CULTURE Today 08/19/2024 3 :54 PM CDT AFB CULTURE, STAIN Today 08/19/2024 3: 54 PM CDT ELY PREP, OTHER SOURCE Today 08/19/2024 3:54 PM CDT FUNGUS CULT, OTHER SOURCE Today 08/19/2024 3:54 PM CDT ANAEROBIC CULTURE Today 08/19/2024 3:5 4 PM CDT AEROBIC BACTERIAL CULTURE, STAIN Today 08/19/2024 3:49 PM CDT ACTINOMYCES CULTURE Today 08/19/2024 3 :49 PM CDT AFB CULTURE, STAIN Today 08/19/2024 3: 49 PM CDT ELY PREP, OTHER SOURCE Today 08/19/2024 3:49 PM CDT FUNGUS CULT, OTHER SOURCE Today 08/19/2024 3:49 PM CDT ANAEROBIC CULTURE Today 08/19/2024 3:4 9 PM CDT AEROBIC BACTERIAL CULTURE, STAIN Today 08/19/2024 3:31 PM CDT ACTINOMYCES CULTURE Today 08/19/2024 3 :31 PM CDT AFB CULTURE, STAIN Today 08/19/2024 3: 31 PM CDT ELY PREP, OTHER SOURCE Today 08/19/2024 3:31 PM CDT FUNGUS CULT, OTHER SOURCE Today 08/19/2024 3:31 PM CDT ANAEROBIC CULTURE Today 08/19/2024 3:3 1 PM CDT PATH NON CATERING SALES MANAGER CYTOLOGY Today 08/19/2024 3:14 PM CDT ENDOTRACHEAL TUBE Routine 08/19/2024 3:0 8 PM CDT ENDOTRACHEAL TUBE Routine 08/19/2024 3:0 8 PM CDT APTT STAT 08/19/2024 2:44 PM CDT PROTIME-INR STAT 08/19/2024 2:44 PM CDT BRONCHOSCOPY ENDOBRONCHIAL ULTRASOUND FINE NEEDLE ASPIRATE Class D Urgent 08/19/2024 2:34 PM CDT Right lung mass, mediastinal lymphadenopathy Case Notes NCD FNA - entered into teams [id number] kf, kamila per lm BRONCHOSCOPY 08/19/2024 2:28 PM CDT [...] CDT SCAN-CARDIAC STRIP 08/17/2024 12:00 AM CDT ANTI HCV Early AM 04/28/2024 5:01 AM ORNAMENT STITCHER from Last 3 Months or Most Recently [...] CHEST 1 VIEW PA OR AP LOCATION: [facility] DATE: 08/23/2024 INDICATION: Post Procedure, CT-guided right [...] CHEST 1 VIEW PA OR AP LOCATION: [facility] DATE: 08/23/2024 INDICATION: Post Procedure, CT-guided right [...] targeted in the future. Reference CPT Codes: 25963, , Narrative 08/23/2024 4:18 PM CDT For [...] 2. CT GUIDANCE 3. CONSCIOUS SEDATION LOCATION: [facility] DATE: 08/23/2024 INDICATION: free text)->lung biopsy s/p Ebus for lung mass TECHNIQUE: Dose reduction techniques were used. PROCEDURE: Informed consent obtained. Site marked. Prior images reviewed. Required items made available. Patient identity confirmed verbally and with arm band. Patient reevaluated immediately before administering sedation. [place] protocol was followed. Time out performed. The [...] 2. CT GUIDANCE 3. CONSCIOUS SEDATION LOCATION: [facility] DATE: 08/23/2024 INDICATION: free text)->lung biopsy s/p Ebus for lung mass TECHNIQUE: Dose reduction techniques were used. PROCEDURE: Informed consent obtained. Site marked. Prior images reviewed.Required items made available. Patient identity confirmed verbally andwith arm band. Patient reevaluated immediately before administeringsedation. [place] protocol was followed. Time out performed. The [...] targeted in the future. Reference CPT Codes: 75293, , us Niesha Acosta DOCUMENT CONTROL COORDINATOR CT Final Re sult * FOCUS (08/23/2024 2:21 PM CDT) Aspirate SPECIMEN OBTAINED BY ASPIRATION / Unknown 08/23/2024 2:21 PM CDT 08/25/2024 6:33 AM CDT Niesha Acosta DOCUMENT CONTROL COORDINATOR LABORATORY Final Re sult [facility] [address] [place] [address], [place] * PATH FNA Cytology ASP Cytology (08/23/2024 2:21 PM CDT) Case Report Medical Cytology Report Case: [id number] Authorizing Provider: Niesha Acosta NP Collected: 08/23/2024 1421 Ordering Location: [facility] Received: 08/23/2024 1436 Pathologist: Thai Ojeda MD Specimen: Aspirate 3:14 PM CDT [facility] Amendment 08/25/2024 - Amendment issued to report PD-L1 results. See final diagnosis section. 08/31/2024 - Amendment to report [facility] Targeted Next Generation Sequencing results. Please see attached scanned report and updated diagnosis. 3:14 PM CDT [facility] Final Diagnosis A) LUNG, RIGHT LOWER [...] Positive for KRAS mutation; see attached report 5 3:14 PM CDT [facility] Amendment electronically signed by Trevor [...] tests other than these, please contact the [facility] ([phone]). Slides available for [facility] NGS testing: Insufficient [...] ALK and ROS1 fusion will be attempted 3:[address] [facility] Clinical Information Mr. Reardon is a [...] likely side branch IPMNs. Follow-up guideline below. 3:[address] [facility] Gross Description A) Received identified as [...] hours and no more than 72 hours. 3:[address] [facility] Microscopic Description Specimen adequacy: Adequate for interpretation. All slides were reviewed. The microscopic appearance substantiates the diagnosis. 3:[address] [facility] Molecular Diagnostics Summary Preanalytical microdissection of tissue/cytology slides for Next Generation Sequencing was performed according to laboratory protocol as follows: Microscopic examination was performed by a pathologist, Dr. Alcocer, to determine specimen adequacy and identify areas of tumor for isolation. Areas of tumor selected and marked by the pathologist were manually harvested by a supervisor laboratory for nucleic acid extraction. 5 3:14 PM CDT [facility] Additional Information Cytology is screened at [facility] - [address], [place] [address] and [facility] - [address] [place] [address] [facility] - [address] [place] [address] Interpreted at [facility] - [address], [place] [address] Immunohistochemistry controls were reviewed and approved as [...] incubated with a PD-L1 rabbit monoclonal antibody ([place] PD-L1 SP263 assay), performed on the Drywave BenchMark ULTRA instrument and visualized with OptiView [...] than or equal to 1% (Expression) This [place] SP263 immunohistochemical antibody assay is considered a laboratory developed test for patients with non-small cell lung cancer who are being considered for treatment with atezolizumab. This [place] SP263 immunohistochemical antibody assay is considered a [...] specimens. References N Engl J Med 2020; 383:1943-8747 10.1056/[id number] J Thorac Oncol 2018;13(3):367-76 https://doi.org/10.101 6/j.jtho.2017.11.112 J Thorac Oncol 2018;13(9):1302-11 https://doi.org/10. 6/j.jtho.2018.05.013 J Thorac Oncol 2017;12(11):5144-63 https://doi.org /10.1016/j.jtho.2017.0 7.031 Am J Clin Oncol 2021;39(15)suppl:8500 10.1200/JCO.2021.39.1 5_suppl.8500 Disclaimer Support for the interpretation of this case may have included the use of immunohistochemistry and/or in situ hybridization tests that were performed by [facility] and whose performance characteristics were evaluated by [...] complexity clinical laboratory testing. 3:14 PM CDT [facility] Aspirate SPECIMEN OBTAINED BY ASPIRATION / Unknown 08/23/2024 2:21 PM CDT 08/23/2024 2:36 PM CDT Niesha Acosta NP PATHOLOGY/CYTOLOGY Edite d Result - Final [facility] [address] [place] [address], [place] * (ABNORMAL) POTASSIUM (08/23/2024 6:59 AM CDT) Only the most recent of3 resultswithin the time period is included. POTASSIUM 5.3(H) 3.5 - 5.1 mmol/L 08/23/2024 8:13 AM CDT [facility] Blood BLOOD SPECIMEN / Unknown Butterfly / Unknown 08/23/2024 6:59 AM CDT 08/23/2024 7:02 AM CDT Amy Skinner DO CHEMISTRY Final Result Performing Organization Address City/[facility]/ZIP Co de Phone Number [facility] LAB[facility]ATORY INTERNAL ZIP [phone] [place] [address] * (ABNORMAL) CREATININE (08/23/2024 6:59 AM CDT) Only the most recent of2 resultswithin the time period is included. eGFR 9(L) >90 mL/min/1.7 3m2 08/23/2024 8:13 AM T [facility] Comment:As of 2021, eG FR is calculated by the CKD-EPI creatinine equation without race adjustment. eGFR can be influenced by muscle mass, exercise, and diet. The reported eGFR is an estimation only and is only applicable if the renal function is stable. CREATININE 6.35(H) 0.70 - 1.20 mg/dL 08/23/2024 8:13 AM CDT [facility] Blood BLOOD SPECIMEN / Unknown Butterfly / Unknown 08/23/2024 6:59 AM CDT 08/23/2024 7:02 AM CDT Amy Skinner DO CHEMISTRY Final Result Performing Organization Address City/[facility]/ZIP Co de Phone Number [facility] LABORATORY INTERNAL ZIP [phone] [place] [address] * (ABNORMAL) PROCALCITONIN (08/20/2024 11:41 AM CDT) Only the most recent of2 resultswithin the time period is included. PROCALCITONIN 7.75(H) ng/ml 08/20/2024 12:32 PM T [facility] Blood BLOOD SPECIMEN / Unknown Line/Port / Unknown 08/20/2024 11:41 AM CDT 08/20/2024 11:45 AM CDT [facility] LAB[facility]ATORY - 08/20/2024 12:32 PM CDT Procalcitonin [...] Amy Skinner DO SEND OUTS Final Result [facility] LABORATORY INTERNAL ZIP [phone] [facility] [place] [address] * (ABNORMAL) HEMOGLOBIN (08/20/2024 11:41 AM CDT) Only the most recent of2 resultswithin the time period is included. HEMOGLOBIN 10.5(L) 13.5 - 17.5 g/dL 08/20/2024 11:49 AM CDT [facility] MCV 96 80 - 100 fL 08/20/2024 11:49 AM CDT [facility] Blood BLOOD SPECIMEN / Unknown Line/Port / Unknown 08/20/2024 11:41 AM CDT 08/20/2024 11:45 AM CDT Amy Skinner DO HEMATOLOGY Final Result Performing Organization Address [facility] Co de Phone Number [facility] LABORATORY INTERNAL ZIP [phone] [facility] [place] [address] * MAGNESIUM (08/20/2024 11:41 AM CDT) Only the most recent of2 resultswithin the time period is included. MAGNESIUM 1.9 1.6 - 2.4 mg/dL 08/20/2024 12:24 PM CDT [facility] Blood BLOOD SPECIMEN / Unknown Line/Port / Unknown 08/20/2024 11:41 AM CDT 08/20/2024 11:45 AM CDT Amy Skinner DO CHEMISTRY Final Result [facility] LABORATORY INTERNAL ZIP [phone] [facility] [place] [address] * XR CHEST 1 VIEW PORTABLE (08/19/2024 [...] EXAM: XR CHEST 1 VIEW PORTABLE LOCATION: [facility] DATE: 08/19/2024 INDICATION: Post procedure. COMPARISON: 08/18/2024. Procedure Note Nando Pulido MD - 08/19/2024 For Patients: As a result of the Cures Act, medical imagingexams and procedure reports are released immediately into your electronicmedical record. You may view this report before your referring provider.If you have questions, please contact your health care provider. EXAM: XR CHEST 1 VIEW PORTABLE LOCATION: [facility] DATE: 08/19/2024 INDICATION: Post procedure. COMPARISON: 08/18/2024. IMPRESSION: Masslike consolidation right lower lung increased since previous chestx-ray. Minimal hazy infiltrates left lower lung slightly increased. Rightcentral venous catheter with tip in the SVC. Heart size upper limits ofnormal, although stable. Pulmonary vascularity upper limits of normal andunchanged. Aortic calcification. Mild thoracic curve. us Edilberto Dial MD GENERAL IMAGING Final R esult * AFB CULTURE, STAIN (08/19/2024 4:21 PM CDT) Only the most recent of4 resultswithin the time period is included. CULTURE No Mycobacterium isolated. 10/04/2024 7:26 AM CDT [facility] ACID FAST STAIN No acid fast bacilli seen 10/04/2024 7:26 AM CDT [facility] Bronchoalveolar Lavage (Right Lower Lobe Lung Bronchoalveolar Lavage) Non-Blood / Unknown 08/19/2024 4:21 PM CDT 08/19/2024 5:14 PM CDT Edilberto Dial MD MICROBIOLOGY Final R esult [facility] [address] [place] [address], * BRONCHIAL CULTURE, STAIN (08/19/2024 4:21 PM CDT) CULTURE Usual josé 08/21/2024 8:52 AM CDT [facility] TR[facility] LABORATORY GRAM STAIN 2+ PMNs 08/21/2024 8:52 AM CDT [facility] GRAM STAIN 4+ RBCs 08/21/2024 8:52 AM CDT [facility] GRAM STAIN No Epithelial cells 08/21/2024 8:52 AM CDT [facility] GRAM STAIN No organisms seen 08/21/2024 8:52 AM CDT [facility] GRAM STAIN Gram stain peformed by [place], [place] 08/21/2024 8:52 AM CDT [facility] Bronchoalveolar Lavage (Right Lower Lobe Lung Bronchoalveolar Lavage) Non-Blood / Unknown 08/19/2024 4:21 PM CDT 08/19/2024 5:14 PM CDT Edilberto Dial MD MICROBIOLOGY Final R esult [facility] [address] [place] [address], [place] [facility] INTERNAL ZIP [phone] [place] [address] * BAL COUNT AND DIFF (08/19/2024 4:21 PM CDT) BODY FLUID SOURCE Bronchoalveolar Lavage 08/19/2024 7:27 PM [facility] Comment:RLL BAL COLOR Grossly Bloody 08/19/2024 7:27 PM [facility] BAL CLARITY Turbid 08/19/2024 7:27 PM [facility] TOTAL NUCLEATED CELLS, BF 109 /cu mm 08/19/2024 7:27 PM [facility] % NEUTROPHILS, BODY FLUID 60 % 08/19/2024 7:27 PM [facility] % LYMPHOCYTES, BODY FLUID 8 % 08/19/2024 7:27 PM [facility] % MONO/MACRO, BAL 32 % 08/19/2024 7:27 PM [facility] BRONCH EPITHELIAL Few 08/19/2024 7:27 PM [facility] Bronchoalveolar Lavage (Right Lower Lobe Lung Bronchoalveolar Lavage) Non-Blood / Unknown 08/19/2024 4:21 PM CDT 08/19/2024 5:14 PM CDT Narrative [facility] - 08/19/2024 7:27 PM CDT Result may be inaccurate due to clots or cell clumps. us Edilberto Dial MD BODY FLUID Final R esult [facility] INTERNAL ZIP [phone] [place] [address] * ELY PREP, OTHER SOURCE (08/19/2024 4:21 PM CDT) Only the most recent of4 resultswithin the time period is included. OBSERVATION No fungal elements seen 08/19/2024 6:34 PM CDT [facility] Bronchoalveolar Lavage (Right Lower Lobe Lung Bronchoalveolar Lavage) Non-Blood / Unknown 08/19/2024 4:21 PM CDT 08/19/2024 5:14 PM CDT us Edilberto Dial MD MICROBIOLOGY Final R esult [facility] INTERNAL ZIP [phone] [place] [address] * FUNGUS CULT, OTHER SOURCE (08/19/2024 4:21 PM CDT) Only the most recent of4 resultswithin the time period is included. CULTURE No Fungus isolated. 09/20/2024 7:02 AM CDT [facility] Bronchoalveolar Lavage (Right Lower Lobe Lung Bronchoalveolar Lavage) Non-Blood / Unknown 08/19/2024 4:21 PM CDT 08/19/2024 5:14 PM CDT Edilberto Dial MD MICROBIOLOGY Final R esult [facility] [address] [address], [place] * ANAEROBIC CULTURE (08/19/2024 4:21 PM CDT) Only the most recent of4 resultswithin the time period is included. CULTURE No anaerobes isolated 08/25/2024 11:15 AM CDT [facility] Bronchoalveolar Lavage (Right Lower Lobe Lung Bronchoalveolar Lavage) Non-Blood / Unknown 08/19/2024 4:21 PM CDT 08/19/2024 5:14 PM CDT Edilberto Dial MD MICROBIOLOGY Final R esult [facility] [address] [address], [place] * AEROBIC BACTERIAL CULTURE, STAIN (08/19/2024 3:54 PM CDT) Only the most recent of3 resultswithin the time period is included. CULTURE No Growth. 08/24/2024 11:00 AM CDT [facility] GRAM STAIN 2+ PMNs 08/24/2024 11:00 AM CDT [facility] GRAM STAIN 4+ RBCs 08/24/2024 11:00 AM CDT [facility] GRAM STAIN No Epithelial cells 08/24/2024 11:00 AM CDT [facility] GRAM STAIN No organisms seen 08/24/2024 11:00 AM CDT [facility] GRAM STAIN Gram stain peformed by [place], [place] 08/24/2024 11:00 AM CDT [facility] Aspirate (Station 11R Interlobar Lymph Node) Non-Blood / Unknown 08/19/2024 3:54 PM CDT 08/19/2024 5:21 PM CDT Edilberto Dial MD MICROBIOLOGY Final R esult [facility] [address] [address], [facility] INTERNAL ZIP [address] [address] [place] [address] * ACTINOMYCES CULTURE (08/19/2024 3:54 PM CDT) Only the most recent of3 resultswithin the time period is included. CULTURE No Actinomyces isolated. 08/30/2024 6:57 AM CDT [facility] TRAL [facility] Aspirate (Station 11R Interlobar Lymph Node) Non-Blood / Unknown 08/19/2024 3:54 PM CDT 08/19/2024 5:21 PM CDT us Edilberto Dial MD MICROBIOLOGY Final R esult [facility] [address] [place] [address], * PATH NON CATERING SALES MANAGER CYTOLOGY (08/19/2024 3:14 PM CDT) Case Report Medical Cytology Report Case: [id number] Authorizing Provider: Edilberto Dial MD Collected: 08/19/2024 1514 Ordering Location: [facility] Received: 08/19/2024 1646 Pathologist: Nimesh Corral Jr., MD Specimens: A) - Level 7 Lymph Node, 3cm B) - Station 4R Lower Paratracheal Lymph Node, 2cm C) - Station 11R Interlobar Lymph Node, 1.5cm D) - Right Lower Lobe Lung Bronchial Brushing, @1625 E) - Right Lower Lobe Lung Bronchoalveolar Lavage 08/24/2024 3:55 PM CDT [facility] Final Diagnosis A) STATION 7 [...] malignancy (see comment) 08/24/2024 3:55 PM CDT [facility] WITH [facility] at 1555 CDT Comment The atypical cells present in part E are not definitively neoplastic, and may represent reactive pneumocytes or metaplastic epithelium. They are not diagnostic for any particular process. Please correlate with clinical and radiologic findings. 08/24/2024 3:55 PM CDT [facility] Clinical Information 63 [address] old male with CT demonstrating an enlarging mass-like consolidation in the posterior right lower lobe measuring at least 9.1 x 4.7 cm, abutting the right major fissure and right posterior pleural surface. 08/24/2024 3:55 PM CDT [facility] Gross Description A) Received identified [...] stained ThinPrep slides 08/24/2024 3:55 PM CDT [facility] Adequacy Assessment A) D.S. assessed adequacy from the air-dried smears at the time of the procedure with an impression of Adequate. B) D.S. assessed adequacy from the air-dried smears at the time of the procedure with an impression of Adequate. C) D.S. assessed adequacy from the air-dried smears at the time of the procedure with an impression of Adequate. D) Berenice.S. assessed adequacy from the air-dried smears at the time of the procedure with an impression of Adequate. 08/24/2024 3:55 PM T [facility] Microscopic Description Specimen adequacy: Adequate for interpretation. All slides were reviewed. The microscopic appearance substantiates the diagnosis. GMS and Seng stains were performed on blocks A2 and B2 and are negative for organisms. 08/24/2024 3:55 PM [facility] Flow Cytometry Summary T & B Cell Screen panel: Interpretation: No monotypic B or T lymphocytes are detected. Clinical indication for flow cytometry: Evaluation of lymphoid phenotype. Percent of Lymphs B cells (CD19+): 46.8% T cells (CD3+): 51.6% NK cells (CD3-/CD56+): 1.5% CD3+/CD4+: 35.6% CD3+/CD8+: 9.2% CD4:CD8 ratio: 3.9 CD19+/[place]: 17.3% CD19+/Lambda: 17.9% [place]:Lambda ratio: 1.0 B and T lymphocytes in this analysis demonstrate normal qualitative expression of the following antigens: CD2, CD3, CD4, CD5, CD7, CD8, CD10, CD19, CD20, CD45, CD56, [place] and Lambda surface light chains, TCR gamma delta, and TRBC1. Quality Assessment Viability (7-AAD): 73% Polytypic B cell events: 3848 Polytypic T cell events: 4164 Nucleated cells analyzed: 12499 Limit of detection (LOD): 0.5% These results and cytograms have been verified by Dr. Corral. This test was developed and its performance characteristics verified by [facility] [employer]. It has not been cleared or approved [...] 08/24/2024 1:33 PM 08/24/2024 3:55 PM CDT [facility] Additional Information Cytology is screened at [facility] - [address], [place] [address] and [facility] - [address] [place] [address] [facility] - [address] [place] [address] Interpreted at [facility] - [address], [place] [address] 08/24/2024 3:55 PM CDT [facility] Aspirate (Level 7 Lymph Node) 08/19/2024 [...] Edilberto Dial MD PATHOLOGY/CYTOLOGY Natalee narayan Result [facility] [address] [place] [address], [facility] INTERNAL ZIP [address] [place] [address] * HCHG TUBE PR1, HCHG STYLET PR1 [...] - 36 sec 08/19/2024 3:17 PM CDT [facility] Blood BLOOD SPECIMEN / Unknown Butterfly / Unknown 08/19/2024 2:44 PM CDT 08/19/2024 2:51 PM CDT [facility] - 08/19/2024 3:17 PM CDT Therapeutic Range: 59-89 seconds us Edilberto Dial MD HEMATOLOGY Final R esult [facility] INTERNAL ZIP [address] [address] [place] [address] * PROTIME-INR (08/19/2024 2:44 PM CDT) INR 1.1 <1.3 08/19/2024 3:17 PM CDT [facility] PROTIME 12.3 10.6 - 12.4 sec 08/19/2024 3:17 PM CDT [facility] Blood BLOOD SPECIMEN / Unknown Butterfly / Unknown 08/19/2024 2:44 PM CDT 08/19/2024 2:51 PM CDT [facility] - 08/19/2024 3:17 PM CDT [...] Edilberto Dial MD HEMATOLOGY Final R esult [facility] INTERNAL ZIP [phone] [place] [address] * BRONCHOSCOPY (08/19/2024 2:28 PM CDT) 08/19/2024 [...] aspiration was also performed using an Olympus DoutíssimaiShot 21 gaugeneedle in the right lower paratracheal region (level 4R), subcarinal mediastinum (level 7) and right superior interlobar region ([id number]) and sent for routine cytology and bacterial, [...] - 11.0 thou/cu mm 08/19/2024 9:22 AM [facility] RED BLOOD COUNT 3.54(L) 4.30 - 5.90 mil/cu mm 08/19/2024 9:22 AM [facility] HEMOGLOBIN 10.9(L) 13.5 - 17.5 g/dL 08/19/2024 9:22 AM [facility] HEMATOCRIT 33.2(L) 37.0 - 53.0 % 08/19/2024 9:22 AM [facility] MCV 94 80 - 100 fL 08/19/2024 9:22 AM [facility] MCH 30.8 26.0 - 34.0 pg 08/19/2024 9:22 AM [facility] MCHC 32.8 32.0 - 36.0 g/dL 08/19/2024 9:22 AM [facility] RDW 14.6 11.5 - 15.5 % 08/19/2024 9:22 AM [facility] PLATELET COUNT 263 140 - 440 thou/cu mm 08/19/2024 9:22 AM [facility] MPV 11.0 6.5 - 11.0 fL 08/19/2024 9:22 AM [facility] NRBC 0.0 % 08/19/2024 9:22 AM [facility] ABS NRBC 0.0 thou /cu mm 08/19/2024 9:22 AM [facility] Blood BLOOD SPECIMEN / Unknown Non-Lab Venipuncture / Unknown 08/19/2024 8:50 AM CDT 08/19/2024 9:19 AM CDT us Zaheer Valerio MD HEMATOLOGY Final Result [facility] INTERNAL ZIP [phone] [place] [address] * (ABNORMAL) RENAL FUNCTION PANEL (08/19/2024 8:50 AM CDT) SODIUM 136 136 - 145 mmol/L 08/19/2024 9:51 AM [facility] POTASSIUM 3.9 3.5 - 5.1 mmol/L 08/19/2024 9:51 AM [facility] CHLORIDE 99 98 - 107 mmol/L 08/19/2024 9:51 AM [facility] CO2,TOTAL 23 22 - 29 mmol/L 08/19/2024 9:51 AM [facility] ANION GAP 14 5 - 18 08/19/2024 9:51 AM [facility] GLUCOSE 118(H) 70 - 99 mg/dL 08/19/2024 9:51 AM [facility] CALCIUM 9.3 8.8 - 10.4 mg/dL 08/19/2024 9:51 AM [facility] Comment: Reference ranges for this test were updated on 03/30/2024 to reflect our healthy population more accurately. Reference range changes are not retroactively applied to results, but previous results using the same methodology can be interpreted in the context of the new reference range. BUN 29(H) 8 - 23 mg/dL 08/19/2024 9:51 AM [facility] CREATININE 4.29(H) 0.70 - 1.20 mg/dL 08/19/2024 9:51 AM [facility] BUN/CREAT RATIO 7(L) 10 - 20 9:51 AM [facility] eGFR 15(L) >90 mL/min/1. 73m2 08/19/2024 9:51 AM [facility] Comment:As of 2021, eG FR is calculated by the CKD-EPI creatinine equation without race adjustment. eGFR can be influenced by muscle mass, exercise, and diet. The reported eGFR is an estimation only and is only applicable if the renal function is stable. PHOSPHORUS 3.8 2.5 - 4.5 mg/dL 08/19/2024 9:51 AM [facility] ALBUMIN 3.9(L) 4.0 - 4.9 g/dL 08/19/2024 9:51 AM [facility] Blood BLOOD SPECIMEN / Unknown Non-Lab Venipuncture / Unknown 08/19/2024 8:50 AM CDT 08/19/2024 9:17 AM CDT us Zaheer Valerio MD CHEMISTRY Final Result [facility] INTERNAL ZIP [address] [address] [place] [address] * (ABNORMAL) COMP METABOLIC PANEL (08/19/2024 8:50 AM CDT) Only the most recent of2 resultswithin the time period is included. SODIUM 136 136 - 145 mmol/L 08/19/2024 9:51 AM [facility] POTASSIUM 3.9 3.5 - 5.1 mmol/L 08/19/2024 9:51 AM [facility] CHLORIDE 99 98 - 107 mmol/L 08/19/2024 9:51 AM [facility] CO2,TOTAL 23 22 - 29 mmol/L 08/19/2024 9:51 AM [facility] ANION GAP 14 5 - 18 08/19/2024 9:51 AM [facility] GLUCOSE 118(H) 70 - 99 mg/dL 08/19/2024 9:51 AM [facility] CALCIUM 9.3 8.8 - 10.4 mg/dL 08/19/2024 9:51 AM [facility] Comment: Reference ranges for this test were updated on 03/30/2024 to reflect our healthy population more accurately. Reference range changes are not retroactively applied to results, but previous results using the same methodology can be interpreted in the context of the new reference range. BUN 29(H) 8 - 23 mg/dL 08/19/2024 9:51 AM [facility] CREATININE 4.29(H) 0.70 - 1.20 mg/dL 08/19/2024 9:51 AM [facility] BUN/CREAT RATIO 7(L) 10 - 20 9:51 AM [facility] eGFR 15(L) >90 mL/min/1. 73m2 08/19/2024 9:51 AM [facility] Comment:As of 2021, eG FR is calculated by the CKD-EPI creatinine equation without race adjustment. eGFR can be influenced by muscle mass, exercise, and diet. The reported eGFR is an estimation only and is only applicable if the renal function is stable. ALBUMIN 3.9(L) 4.0 - 4.9 g/dL 08/19/2024 9:51 AM [facility] PROTEIN,TOTAL 6.8 6.0 - 8.0 g/dL 08/19/2024 9:51 AM [facility] BILIRUBIN,TOTAL 0.3 0.0 - 1.2 mg/dL 08/19/2024 9:51 AM [facility] ALK PHOSPHATASE 163(H) 40 - 129 IU/L 08/19/2024 9:51 AM [facility] ALT (SGPT) 6(L) 10 - 50 IU/L 08/19/2024 9:51 AM [facility] AST (SGOT) 16 10 - 50 IU/L 08/19/2024 9:51 AM [facility] Blood BLOOD SPECIMEN / Unknown Non-Lab Venipuncture / Unknown 08/19/2024 8:50 AM CDT 08/19/2024 9:17 AM CDT us Brie Morelos MD CHEMISTRY Final R esult [facility] INTERNAL ZIP [address] [address] [place] [address] * SCAN-CARDIAC STRIP (08/19/2024 12:31 AM CDT) us Scanner OTHER Final Result * HBSAG (HBS) (08/18/2024 10:22 PM CDT) HBSAG Nonreactive Nonreactive 08/19/2024 11:56 AM CDT [facility] Blood BLOOD SPECIMEN / Unknown Butterfly / Unknown 08/18/2024 10:22 PM CDT 08/18/2024 10:26 PM CDT us Zaheer Valerio MD SEND OUTS Final Result [facility] [address] [place] [address], [place] * SCAN-CARDIAC STRIP (08/18/2024 9:58 PM CDT) us Scanner OTHER Final Result * SCAN-CARDIAC STRIP (08/18/2024 8:22 AM CDT) us Scanner OTHER Final Result * WHITE BLOOD COUNT (08/18/2024 5:23 AM CDT) WHITE BLOOD COUNT 10.3 4.5 - 11.0 thou/cu mm 08/18/2024 5:44 AM CDT [facility] NRBC 0.0 % 08/18/2024 5:44 AM CDT [facility] ABS NRBC 0.0 thou /cu mm 08/18/2024 5:44 AM CDT [facility] Blood BLOOD SPECIMEN / Unknown Butterfly / Unknown 08/18/2024 5:23 AM CDT 08/18/2024 5:42 AM CDT us Brie Morelos MD HEMATOLOGY Final R esult [facility] INTERNAL ZIP [phone] [place] [address] * (ABNORMAL) BASIC METABOLIC PANEL (08/18/2024 5:23 AM CDT) SODIUM 132(L) 136 - 145 mmol/L 08/18/2024 6:04 AM T [facility] POTASSIUM 5.4(H) 3.5 - 5.1 mmol/L 08/18/2024 6:04 AM T [facility] CHLORIDE 99 98 - 107 mmol/L 08/18/2024 6:04 AM T [facility] CO2,TOTAL 14(L) 22 - 29 mmol/L 08/18/2024 6:04 AM T [facility] ANION GAP 19(H) 5 - 18 08/18/2024 6:04 AM T [facility] GLUCOSE 101(H) 70 - 99 mg/dL 08/18/2024 6:04 AM T [facility] CALCIUM 9.0 8.8 - 10.4 mg/dL 08/18/2024 6:04 AM T [facility] Comment: Reference ranges for this test were updated on 03/30/2024 to reflect our healthy population more accurately. Reference range changes are not retroactively applied to results, but previous results using the same methodology can be interpreted in the context of the new reference range. BUN 46(H) 8 - 23 mg/dL 08/18/2024 6:04 AM T [facility] CREATININE 5.73(H) 0.70 - 1.20 mg/dL 08/18/2024 6:04 AM [facility] BUN/CREAT RATIO 8(L) 10 - 20 6:04 AM CDT [facility] eGFR 10(L) >90 mL/min/1. 73m2 08/18/2024 6:04 AM CDT [facility] Comment:As of 2021, eG FR [...] us Zaheer Valerio MD CHEMISTRY Final Result [facility] INTERNAL ZIP [phone] [place] [address] * SCAN-CARDIAC STRIP (08/18/2024 12:45 AM CDT) us Scanner OTHER Final Result * (ABNORMAL) TROPONIN T (HS) ONE TIME (08/18/2024 12:34 AM CDT) TROPONIN T HS 90(H) 6-15 ng/L ng/L 08/18/2024 12:57 AM CDT [facility] Blood BLOOD SPECIMEN / Unknown Capillary / Unknown 08/18/2024 12:34 AM CDT 08/18/2024 12:37 AM CDT us Milagros Dan MD CHEMISTRY Final Result [facility] INTERNAL ZIP [address] [place] [address] * LACTATE VENOUS (08/18/2024 12:34 AM CDT) Only the most recent of2 resultswithin the time period is included. LACTATE,VENOUS 1.2 0.5 - 2.0 mmol/L 08/18/2024 12:59 AM CDT [facility] Blood BLOOD SPECIMEN / Unknown Capillary / Unknown 08/18/2024 12:34 AM CDT 08/18/2024 12:37 AM CDT Milagros Dan MD CHEMISTRY Final Result [facility] INTERNAL ZIP [phone] [place] [address] * EKG 12 LEAD (08/18/2024 12:22 AM CDT) Pathologist [facility] Interpretation Sinus tachycardia Possible Left atrial enlargement [...] NOW QTc 453 ms BEYOND NOW P [place] 56 degrees BEYOND NOW R [place] 52 degrees BEYOND NOW T [place] 76 degrees BEYOND NOW 08/18/2024 12:2 2 AM CDT 08/19/2024 10:21 AM CDT Milagros Dan MD EKG ORD Final Result [place], [place] * (ABNORMAL) TROPONIN T (HS) ACUTE W/2HR REFLEX (08/17/2024 10:27 PM CDT) [facility] TROPONIN T HS 80(H) 6-15 ng/L ng/L 08/17/2024 11:02 PM CDT [facility] Blood BLOOD SPECIMEN / Unknown Venipuncture / Unknown 08/17/2024 10:27 PM CDT 08/17/2024 10:31 PM CDT Narrative [facility] - 08/17/2024 11:02 PM CDT [...] population. Milagros Dan MD CHEMISTRY Final Result [facility] INTERNAL ZIP [phone] [place] [address] * (ABNORMAL) CBC WITH AUTO DIFFERENTIAL (08/17/2024 10:27 PM CDT) WHITE BLOOD COUNT 13.2(H) 4.5 - 11.0 thou/cu mm 08/17/2024 10:36 PM CDT [facility] RED BLOOD COUNT 3.96(L) 4.30 - 5.90 mil/cu mm 08/17/2024 10:36 PM CDT [facility] HEMOGLOBIN 12.4(L) 13.5 - 17.5 g/dL 08/17/2024 10:36 PM T [facility] HEMATOCRIT 38.5 37.0 - 53.0 % 08/17/2024 10:36 PM [facility] MCV 97 80 - 100 fL 08/17/2024 10:36 PM [facility] MCH 31.3 26.0 - 34.0 pg 08/17/2024 10:36 PM T [facility] MCHC 32.2 32.0 - 36.0 g/dL 08/17/2024 10:36 PM [facility] RDW 14.5 11.5 - 15.5 % 08/17/2024 10:36 PM [facility] PLATELET COUNT 302 140 - 440 thou/cu mm 08/17/2024 10:36 PM [facility] MPV 10.9 6.5 - 11.0 fL 08/17/2024 10:36 PM [facility] NRBC 0.0 % 08/17/2024 10:36 PM [facility] ABS NRBC 0.0 thou /cu mm 08/17/2024 10:36 PM [facility] % NEUT 58.6 % 08/17/2024 10:36 PM [facility] % LYMPH 26.5 % 08/17/2024 10:36 PM [facility] % MONO 5.2 % 08/17/2024 10:36 PM [facility] % EOS 8.4 % 08/17/2024 10:36 PM T [facility] % BASO 0.5 % 08/17/2024 10:36 PM [facility] % IMMATURE GRAN (METAS,MYELOS,AK OS) 0.8 % 08/17/2024 10:36 PM [facility] ABSOLUTE NEUTROPHILS 7.8(H) 1.7 - 7.0 thou/cu mm 08/17/2024 10:36 PM T [facility] ABSOLUTE LYMPHOCYTES 3.5(H) 0.9 - 2.9 thou/cu mm 08/17/2024 10:36 PM CDT [facility] ABSOLUTE MONOCYTES 0.7 <0.9 thou/cu mm 08/17/2024 10:36 PM CDT [facility] ABSOLUTE EOSINOPHILS 1.1(H) <0.5 thou/cu mm 08/17/2024 10:36 PM CDT [facility] ABSOLUTE BASOPHILS 0.1 <0.3 thou/cu mm 08/17/2024 10:36 PM CDT [facility] ABSOLUTE IMMATURE GRANULOCYTES(MET ,MYELOS,PROS) 0.1 <0.3 thou/cu mm 08/17/2024 10:36 PM CDT [facility] Blood BLOOD SPECIMEN / Unknown Venipuncture / Unknown 08/17/2024 10:27 PM CDT 08/17/2024 10:33 PM CDT Milagros Dan MD HEMATOLOGY Final Result [facility] INTERNAL ZIP [address] [place] [address] * (ABNORMAL) BLOOD GAS,VENOUS (08/17/2024 10:27 PM CDT) PH, VENOUS 7.25(L) 7.32 - 7.43 08/17/2024 10:40 PM CDT [facility] PCO2, VENOUS 39(L) 41 - 51 mmHg 08/17/2024 10:40 PM T [facility] PO2, VENOUS 137(H) 35 - 40 mmHg 08/17/2024 10:40 PM CDT [facility] HCO3,VENOUS 17(L) 22 - 29 mmol/L 08/17/2024 10:40 PM T [facility] BASE EXCESS, VENOUS, POCT -9.5(L) -2.0 - 3.0 08/17/2024 10:40 PM CDT [facility] O2 SATURATION, VENOUS 100(H) 70 - 75 % 08/17/2024 10:40 PM CDT [facility] PATIENT TEMPERATURE 37.0 Degrees C 08/17/2024 10:40 PM CDT [facility] Blood VENOUS BLOOD SPECIMEN / Unknown Venipuncture / Unknown 08/17/2024 10:27 PM CDT 08/17/2024 10:33 PM CDT Milagros Dan MD CHEMISTRY Final Result [facility] INTERNAL ZIP [phone] [place] [address] * (ABNORMAL) PRO-BNP (08/17/2024 10:27 PM CDT) PRO-BNP >70,000(H) <125 pg/mL 08/17/2024 11:25 PM CDT [facility] Blood BLOOD SPECIMEN / Unknown Venipuncture / Unknown 08/17/2024 10:27 PM CDT 08/17/2024 10:31 PM CDT Narrative [facility] - 08/17/2024 11:25 PM CDT [...] Milagros Dan MD SEND OUTS Final Result [facility] INTERNAL ZIP [address] [address] [place] [address] * CT CHEST W (08/17/2024 2:02 PM [...] care provider. EXAM: CT CHEST W LOCATION: [facility] DATE: 08/17/2024 INDICATION: Pneumonia, complication suspected, xray [...] care provider. EXAM: CT CHEST W LOCATION: [facility] DATE: 08/17/2024 INDICATION: Pneumonia, complication suspected, xray [...] 7.35 - 7.45 08/17/2024 12:47 PM CDT [facility] PCO2, ARTERIAL 47 35 - 48 mmHg 08/17/2024 12:47 PM CDT [facility] PO2, ARTERIAL 85 83 - 108 mmHg 08/17/2024 12:47 PM CDT [facility] HCO3, ARTERIAL 30(H) 21 - 28 mmol/L 08/17/2024 12:47 PM CDT [facility] BASE EXCESS, ARTERIAL 5.0(H) -2.0 - 3.0 08/17/2024 12:47 PM CDT [facility] O2 SATURATION, ARTERIAL 96 94 - 98 % 08/17/2024 12:47 PM CDT [facility] SODIUM, POCT 08/17/2024 12:47 PM CDT [facility] Comment:Unable to determine. POTASSIUM, POCT 12:47 PM CDT [facility] Comment:Unable to determine. INSPIRED O2,ISTAT 3.0 08/17/2024 12:47 PM CDT [facility] PATIENT TEMPERATURE 37.0 Degrees C 08/17/2024 12:47 PM CDT [facility] MELINDA'S TEST Not Given 08/17/2024 12:47 PM CDT [facility] SAMPLE TYPE,ISTAT BLOOD GAS ARTERIAL 08/17/2024 12:47 PM CDT [facility] Blood BLOOD SPECIMEN / Unknown 08/17/2024 12:46 PM CDT 08/17/2024 12:47 PM CDT us Brie Morelos MD CHEMISTRY Final R esult [facility] INTERNAL ZIP [address] [place] [address] * LEGIONELLA AND PNEUMOCOCCAL URINE ANTIGEN (08/17/2024 12:25 PM CDT) STREP PNEUMO ANTIGEN Negative 08/17/2024 4:56 PM CDT [facility] Comment:Presumptive negative for pneumococcal pneumonia, suggesting no current or recent pneumococcal infection. Infection due to S. pneumoniae cannot be ruled out since the antigen present in the sample may be below the detection limit of the test. LEGIONELLA ANTIGEN Negative 08/17/2024 4:56 PM CDT [facility] Comment:Negative for L.pneum ophila serogroup [...] Brie Morelos MD MICROBIOLOGY Final R esult [facility] [address] [place] [address], [place] * XR CHEST 2 VIEWS PA [...] CHEST 2 VIEWS PA AND LATERAL LOCATION: [facility] DATE: 08/17/2024 INDICATION: Dyspnea. COMPARISON: CT 05/24/2024, [...] CHEST 2 VIEWS PA AND LATERAL LOCATION: [facility] DATE: 08/17/2024 INDICATION: Dyspnea. COMPARISON: CT 05/24/2024, [...] * SCAN CORRESP-IMAGING (08/17/2024 8:42 AM CDT) Anatomical Region Laterality Modality Other Narrative 08/17/2024 8:42 AM CDT Ordered by an unspecified provider. us Other Clinical Staff OTHER Final Resul t * SCAN-CARDIAC STRIP (08/17/2024 12:00 AM CDT) Narrative 08/17/2024 12:00 AM CDT Ordered by an unspecified provider. us Other Clinical Staff OTHER Final Resul t * (ABNORMAL) ANTI HCV (04/28/2024 5:01 AM ORNAMENT STITCHER) HEPATITIS C ANTIBODY Reactive, Preliminary Positive(A) Non-React odette 04/28/2024 9:46 AM ORNAMENT STITCHER [facility] Comment:Presumptive evidence of antibodies to HCV. Reflexed to HCV RNA Quant (See separate report). Blood BLOOD SPECIMEN / Unknown Venipuncture / Unknown 04/28/2024 5:01 AM ORNAMENT STITCHER 04/28/2024 5:17 AM ORNAMENT STITCHER Zaheer Valerio MD SEND OUTS Final Result [facility] [address] [place] [id number], from Last 3 Months or Most Recently Relevant to Health Maintenance Insurance [facility] Advance Directives * Full Code (Latest [...] Code Status Discussion: Reviewed Preferences Care Teams Monotype Mechanic Relationship Specialty Start Date End Date [place] [address] PCP - General Family Practice 06/18/23 Pcp, No . 05/18/23 Merari Jenkins, RN [address] [place] [id number] Nurse Navigator - Oncology Registered Nurse 08/27/24
--- NOTE | 2024-10-20 16:47 | CRLHL7_ITS ---
For Patients: As a result of the Century Cures Act, medical imaging exams and procedure reports are released immediately into your electronic medical record. You may view this report before your referring provider. If you have questions, please contact your health care provider. INDICATION: Shortness of breath COMPARISON: 10/13/2024 chest radiograph TECHNIQUE: Single frontal radiographic view(s) of the chest. FINDINGS: Challenging exam due to patient positioning and overlying medical support devices. Central venous catheter with the tip again projecting over the superior cavoatrial junction. Similar cardiomediastinal contours. Similar to mildly increased conspicuity of diffuse interstitial pulmonary opacities with Jayson B lines compatible with interstitial pulmonary edema. Similar appearance of more focal consolidation in the right lower lung zone. Old left-sided rib fractures. IMPRESSION: Similar to mildly increased conspicuity of diffuse interstitial pulmonary opacities with Jayson B lines compatible with interstitial pulmonary edema. Similar appearance of more focal consolidation in the right lower lung zone. Dictated by Eric Francisco MD @ 10/20/2024 5:18:16 PM (Electronically Signed)
--- NOTE | 2024-10-20 16:59 | ED.GENADULT ---
HPI - General Adult General Chief complaint: Shortness of Breath/Dyspnea Stated complaint: SOB Time Seen by Provider: 10/20/24 16:44 Source: patient and EMS Mode of arrival: EMS Limitations: physical limitation History of Present Illness HPI narrative: 64-year-old male with a history of COPD, stage 4 kidney disease on dialysis, coronary artery disease, pulmonary hypertension, congestive heart failure presents today with shortness of breath. Patient presents to the ER frequently with shortness of breath and requires intubation. Patient was last intubated 1 week ago. States that he was in his usual baseline state of health this morning and then this afternoon all of sudden became acutely short of breath. He denies chest pain. He was supposed to get dialysis today but did not. Related Data Home Medications ?Medication ?Instructions ?Recorded ?Confirmed carvedilol 12.5 mg tablet 6.25 mg PO BID 05/18/23 10/20/24 aspirin 81 mg chewable tablet 1 tab PO DAILY 05/17/24 10/20/24 atorvastatin 40 mg tablet 40 mg PO QPM 05/17/24 10/20/24 bumetanide 2 mg tablet 2 mg PO DAILY 05/17/24 10/20/24 multivitamin with folic acid 400 1 tab PO DAILY 05/17/24 10/20/24 mcg tablet (Daily-Ernestina (with folic acid)) Allergies Allergy/AdvReac Type Severity Reaction Status Date / Time ranitidine AdvReac itch Verified 10/20/24 16:53 Review of Systems Status of ROS: Reports: 6 or more systems reviewed and unremarkable except as noted in History and below [facility] Medical History Altered mental status ?R41.82 - Altered mental status, unspecified (ICD-10) Non-STEMI (non-ST elevated myocardial infarction) ?I21.4 - Non-ST elevation (NSTEMI) myocardial infarction (ICD-10) Smoking ?F17.200 - Nicotine dependence, unspecified, uncomplicated (ICD-10) Alcohol use disorder ?F10.90 - Alcohol use, unspecified, uncomplicated (ICD-10) COPD (chronic obstructive pulmonary disease) ?J44.9 - Chronic obstructive pulmonary disease, unspecified (ICD-10) Coronary artery disease ?I25.10 - Atherosclerotic heart disease of [place] coronary artery without angina pectoris (ICD-10) Stage 4 chronic kidney disease ?N18.4 - Chronic kidney disease, stage 4 (severe) (ICD-10) Pulmonary hypertension ?I27.20 - Pulmonary hypertension, unspecified (ICD-10) Right heart failure ?I50.810 - Right heart failure, unspecified (ICD-10) Heart failure with reduced ejection fraction ?I50.20 - Unspecified systolic (congestive) heart failure (ICD-10) Social History Narrative: Patient apparently lives in an apartment in [place]. Smokes a pack of cigarettes a day. He has a history of alcohol abuse but current consumption is unknown. Unable to discuss plan of care or goals of care What is your current living situation?: unable to answer Problems where you live: unable to answer Problems where you live details: unknown In the past 12 months, utilities in danger of being shut off: unable to answer In past 12 months, lack of transportation kept you from medical appts, meetings, work, or getting things needed for daily living: unable to answer In the past 12 mos, have been you worried that your food would run out before you had money to buy more?: unable to answer In the past 12 mos, the food you bought just didn't last and you didn't have money to buy more?: unable to answer Highest level of school completed/degree received: don't know Smoking Status: Current every day smoker Do you use any of these nicotine containing products: None Second hand tobacco smoke exposure: Yes How often do you have a drink containing alcohol: 4 or more times a week AUDIT-C Alcohol total score: 4 Non-prescribed substance use: denies use Non-prescribed substance use details: unknown How often does anyone, including family, friends and others, physically hurt you: unable to answer How often does anyone, including family, friends and others, insult or talk down to you: unable to answer How often does anyone, including family, friends and others, threaten you with harm: unable to answer How often does anyone, including family, friends and others, scream or curse at you: unable to answer service: No Exam Narrative: Exam Narrative: Thin, disheveled patient in acute respiratory distress. Cantankerous, answers most questions with yes or no. Patient is tripoding. He is tachypneic and tachycardic. Patient is diaphoretic. Arrives with a non-rebreather in place, saturating 98% on 10 L. HEENT: Normocephalic atraumatic. Extraocular muscles are intact. Conjunctivae are moist without any icterus noted. Cardiovascular: Tachycardic. Lungs: Rhonchi bilaterally. Very minimal wheezing. Abdomen: Soft and nontender nondistended with normal bowel sounds. Extremities: 1+ pitting edema bilaterally. Skin: Well perfused. Const: Vital Signs, click to edit/add: Vital Signs - 24 hr 10/20/24 16:41 10/20/24 16:42 10/20/24 16:42 Temperature 97.2 F L Pulse Rate 125 H 126 H Pulse Rate [Pulse Oximeter] 126 H Respiratory Rate 32 H Blood Pressure 149/115 H Blood Pressure [Ri ght Upper Arm] 149/115 H Pulse Oximetry 98 98 98 Oxygen Delivery Me thod Non Rebreather Mas k Oxygen Flow Rate 10 Fraction of Inspir ed Oxygen 10/20/24 16:45 10/20/24 16:54 10/20/24 17:00 Temperature Pulse Rate 128 H 124 H 124 H Pulse Rate [Pulse Oximeter] Respiratory Rate 29 H Blood Pressure 156/127 H 140/126 H Blood Pressure [Ri ght Upper Arm] Pulse Oximetry 96 97 96 Oxygen Delivery Me thod BiPAP Oxygen Flow Rate Fraction of Inspir ed Oxygen 35 10/20/24 17:01 10/20/24 17:04 10/20/24 17:09 Temperature Pulse Rate 125 H 126 H 124 H Pulse Rate [Pulse Oximeter] Respiratory Rate 23 21 21 Blood Pressure 155/130 H 168/132 H Blood Pressure [Ri ght Upper Arm] Pulse Oximetry 96 96 96 Oxygen Delivery Me thod BiPAP BiPAP BiPAP Oxygen Flow Rate Fraction of Inspir ed Oxygen 35 35 35 10/20/24 17:14 10/20/24 17:15 10/20/24 17:22 Temperature Pulse Rate 123 H 124 H 120 H Pulse Rate [Pulse Oximeter] Respiratory Rate 22 20 24 Blood Pressure 161/124 H Blood Pressure [Ri ght Upper Arm] Pulse Oximetry 97 97 96 Oxygen Delivery Me thod BiPAP BiPAP BiPAP Oxygen Flow Rate Fraction of Inspir ed Oxygen 35 35 35 10/20/24 17:30 10/20/24 17:31 10/20/24 17:45 Temperature Pulse Rate 124 H Pulse Rate [Pulse Oximeter] Respiratory Rate 23 Blood Pressure 189/75 H Blood Pressure [Ri ght Upper Arm] Pulse Oximetry 95 Oxygen Delivery Me thod BiPAP BiPAP Oxygen Flow Rate Fraction of Inspir ed Oxygen 35 35 35 Course Course ED Course: Patient is placed on BiPAP. EKG, read by me, shows a lot of artifact given the patient has tachypnea. Shows sinus tachycardia with a pulse of 123. I do not see any obvious ST wave elevation concerning for acute NC. Respiratory rate went from 32-23 on BiPAP the patient was able to sit up straighter and tripod last. He seemed much more comfortable. Tolerated the BiPAP very well. Portable chest x-ray, read by me, shows pulmonary edema similar to chest x-ray done last week. Were going to give a DuoNeb however patient would need to be removed from the BiPAP for this so that was not done. Did go ahead and give him sublingual nitro to decrease his preload. PH is 7.0, CO to 33, 0256, HC03 is 10. Lactate is normal. Remainder of his labs are pending at this time. Discussed patient with Dr. Sharma [facility] who will accept the patient for transfer at this time. Vital Signs Vital signs: Initial Vital Signs Pulse Rate 125 H 10/20/24 16:41 Blood Pressure 149/115 H 10/20/24 16:41 Blood Pressure Mean 126 H 10/20/24 16:41 Pulse Oximetry 98 10/20/24 16:41 Vital Signs Pulse Rate 125 H 10/20/24 16:41 Blood Pressure 149/115 H 10/20/24 16:41 Pulse Oximetry 98 10/20/24 16:41 Temperature 97.2 F L 10/20/24 16:42 Pulse Rate 124 H 10/20/24 17:31 Respiratory Rate 23 10/20/24 17:30 Blood Pressure 189/75 H 10/20/24 17:31 Pulse Oximetry 95 10/20/24 17:31 Oxygen Delivery Method BiPAP 10/20/24 17:31 Oxygen Flow Rate 10 10/20/24 16:42 Fraction of Inspired Oxygen 35 10/20/24 17:45 Medications Administered Medications: Discontinued Medications Generic Name Dose Route Start Last Admin Trade Name Freq PRN Reason Stop Dose Admin Albuterol/Ipratropium 1 neb 10/20/24 17:14 10/20/24 17:35 Iprat-Albut 0.5-2.5 Mg/3 Ml Neb 10/20/24 17:15 Not Given ONCE ONE Nitroglycerin 0.4 mg 10/20/24 17:14 10/20/24 17:25 Nitroglycerin 0.4 Mg Tab.Subl SUBLINGUAL 10/20/24 17:15 0.4 mg ONCE ONE Administration Medical Decision Making MDM Narrative Medical decision making narrative: 64-year-old male with recurrent respiratory failure - patient will be transferred to [facility] at this time. He is maintaining well on BiPAP. Medical Records Medical records reviewed: Yes I reviewed the patient's medical records Lab Data Lab results reviewed: Yes I reviewed the patient's lab results Labs: Lab Results 10/20/24 10/20/24 Range/Units 16:48 17:20 WBC 14.23 H (4.50-11.00) K/uL RBC 4.25 L (4.30-5.90) m/uL Hgb 13.6 (13.5-17.5) gm/dL Hct 42.9 (37.0-53.0) % MCV 101 H (80-100) fL MCH 32 (26-34) pg MCHC 32 (32-36) gm/dL RDW Coeff of Martir 16.2 H (11.5-15.5) % Plt Count 290 (140-440) K/uL Neut % (Auto) 78.1 H (42.0-72.0) % Lymph % (Auto) 12.4 L (20-44) % [place] % (Auto) 7.1 (0.0-11.0) % Eos % (Auto) 0.0 (0.0-7.0) % Baso % (Auto) 0.1 (0.0-3.0) % Neut # (Auto) 11.10 H (1.7-7.0) K/uL Lymph # (Auto) 1.80 (0.90-2.90) K/uL [place] # (Auto) 1.00 H (0.00-0.90) K/UL Eos # (Auto) 0.00 (0.00-0.50) K/uL Baso # (Auto) 0.00 (0.00-0.30) K/uL Abs Immat Gran (auto) 0.30 (0.00-0.30) K/uL Imm/Tot Granulo (auto) 2.3 % VBG pH 7.088 L* (7.32-7.43) VBG pCO2 33 L (40-50) mmHG VBG pO2 56.1 H (25-47) mmHG VBG HCO3 10 L (21-28) mmol/L Lactate 0.9 (0.5-1.9) mmol/L POC Troponin I 0.06 H (0.01-0.04) ng/ml Imaging Data Chest x-ray: Attestation: I have reviewed the pertinent imaging results. Radiologist's impression: TECHNIQUE: Single frontal radiographic view(s) of the chest. FINDINGS: Challenging exam due to patient positioning and overlying medical support devices. Central venous catheter with the tip again projecting over the superior cavoatrial junction. Similar cardiomediastinal contours. Similar to mildly increased conspicuity of diffuse interstitial pulmonary opacities with Jayson B lines compatible with interstitial pulmonary edema. Similar appearance of more focal consolidation in the right lower lung zone. Old left-sided rib fractures. IMPRESSION: Similar to mildly increased conspicuity of diffuse interstitial pulmonary opacities with Jayson B lines compatible with interstitial pulmonary edema. Similar appearance of more focal consolidation in the right lower lung zone. ECG Data Attestation: I personally reviewed and interpreted this ECG as follows: Critical Care Time Critical Care Time Total Critical Care Time in Minutes: 30 Discharge Plan Discharge Clinical Impression: Acute respiratory failure Patient Disposition: Xfer Other Discharge Location: [facility] Condition: Critical Prescriptions: No Action carvedilol 12.5 mg tablet 6.25 mg PO BID atorvastatin 40 mg tablet 40 mg PO QPM aspirin 81 mg tablet,chewable 1 tab PO DAILY multivitamin with folic acid [Daily-Ernestina (with folic acid)] 400 mcg tablet 1 tab PO DAILY bumetanide 2 mg tablet 2 mg PO DAILY Stand Alone Forms: [email or web address] Info Instructions
[2024-10-20] MEDS: NITROGLYCERIN 0.4 MG TAB.SUBL SUBLINGUAL (17:25)
[2024-10-20 17:33] LABS: HCO3 VBG 10 mmol/L (21-28); Lactate* 0.9 mmol/L (0.5-1.9); PCO2 VBG 33 mmHG (40-50); PO2 VBG 56.1 mmHG (25-47)
[2024-10-20 17:36] LABS: Basophils Percent Auto 0.1 % (0.0-3.0); Hematocrit 42.9 % (37.0-53.0); Hemoglobin* 13.6 gm/dL (13.5-17.5); Immature Granulocytes Pct Auto 2.3 %; Lymphocytes Percent Auto 12.4 % (20-44); Mean Corpuscular HGB Conc 32 gm/dL (32-36); Mean Corpuscular Hemoglobin 32 pg (26-34); Mean Corpuscular Volume 101 fL (80-100); Monocytes Percent Auto 7.1 % (0.0-11.0); Neutrophils Percent Auto 78.1 % (42.0-72.0); Platelet Count* 290 K/uL (140-440); RDW Coefficient of Variation % 16.2 % (11.5-15.5); Red Blood Count 4.25 m/uL (4.30-5.90); White Blood Count* 14.23 K/uL (4.50-11.00); pH VBG 7.088 (7.32-7.43)
[2024-10-20 17:42] LABS: Slide Review Reflex No
[2024-10-20 17:42] LABS: Troponin, Point-of-Care* 0.06 ng/ml (0.01-0.04)
[2024-10-20 17:50] LABS: Albumin* 4.7 g/dL (3.3-5.0); Chloride* 111 mmol/L (96-114); Sodium* 138 mmol/L (135-149)
[2024-10-20 17:52] LABS: Blood Urea Nitrogen* 98 mg/dL (7-30); Estimated Glomerular Filt Rate 6 ml/min
[2024-10-20 17:53] LABS: Alanine Aminotransferase* 23 U/L (4-50); Alkaline Phosphatase* 141 U/L (40-150); Aspartate Amino Transferase* 35 U/L (12-35); Bilirubin Direct* 0.6 mg/dL (0.0-0.5); Bilirubin Total* 0.7 mg/dL (0.1-1.5); Calcium* 8.1 mg/dL (8.4-10.6); Glucose* 137 mg/dL (60-115); Magnesium* 2.1 mg/dL (1.5-2.6); Total Protein* 7.9 g/dL (6.0-8.3)
[2024-10-20 17:54] LABS: Ethanol* 0.01 % (0.01-0.03)
[2024-10-20 17:59] LABS: Anion Gap 19 mEq/L (7-15)
[2024-10-20 18:02] LABS: Potassium* 6.5 mmol/L (3.6-5.1)
[2024-10-20 18:03] LABS: C Reactive Protein* < 0.5 mg/dL (0.5-1.0); Carbon Dioxide* 8 mmol/L (20-32)
[2024-10-20 18:09] LABS: Troponin I* 0.09 ng/mL (0.01-0.04)
[2024-10-20 18:24] LABS: NT Pro B Type NatriureticPept* 50700 pg/mL (See Note)
== END 2024-10-20 18:19 | disposition other institution (70) ==
PROVIDERS: Family Medicine; Emergency Provider Family Medicine
DX: J96.00 Acute respiratory failure, unspecified whether with hypoxia or hypercapnia (principal); J44.9 Chronic obstructive pulmonary disease, unspecified; I27.20 Pulmonary hypertension, unspecified; I13.0 Hypertensive heart and chronic kidney disease with heart failure and stage 1 through stage 4 chronic kidney disease, or unspecified chronic kidney disease; N18.4 Chronic kidney disease, stage 4 (severe); I50.9 Heart failure, unspecified; F17.210 Nicotine dependence, cigarettes, uncomplicated; Z99.2 Dependence on renal dialysis
CPT/HCPCS: 36415; 71045; 80048; 80076; 82077; 82803; 83605; 83735; 83880; 84484; 85025; 86140; 87635; 93005; 94660; 94761; 99285; 99291; A9270

== ENCOUNTER 2024-10-20 18:00 | Outpatient (CLI) | payer MEDICAID, SELFPAY | END 2024-10-20 18:01 | disposition home or self-care (01) | PROVIDERS: Visit Provider Family Medicine | DX: J96.00 Acute respiratory failure, unspecified whether with hypoxia or hypercapnia (principal) | CPT/HCPCS: A0425; A0434 ==

== ENCOUNTER 2024-10-22 12:42 | Outpatient (CLI) | payer MEDICAID, SELFPAY | END 2024-10-22 12:43 | disposition home or self-care (01) | LOC: AMB 10-25 09:07 | PROVIDERS: Visit Provider Student in an Organized Health Care Education/Training Program | DX: T82.898A Other specified complication of vascular prosthetic devices, implants and grafts, initial encounter (principal); R45.1 Restlessness and agitation | CPT/HCPCS: A0425; A0427 ==

== ENCOUNTER 2024-12-28 09:04 | Outpatient (CLI) | payer MEDICAID, SELFPAY | END 2024-12-28 09:05 | disposition home or self-care (01) | PROVIDERS: PCP Family Medicine; Visit Provider Student in an Organized Health Care Education/Training Program | DX: R07.89 Other chest pain (principal) | CPT/HCPCS: A0425; A0427 ==

== ENCOUNTER 2024-12-28 09:41 | Emergency (ER) | payer MEDICAID, SELFPAY ==
[2024-12-28] VITALS (20 sets, daily range): BP systolic 98–125; BP diastolic 71–92; PULSE 101–117; RESP 10–21; TEMP 35.8–36.2; O2SAT 95–98; BMI 17.4
--- OUTSIDE RECORDS SUMMARY | 2024-12-28 09:44 | XMS_ITS | Clinical Summary ---
Author Organization [facility] [place] [place] Address [address] [place] [id number] Phone Care Team Providers Care Second Hand Paper Machine Name Role Phone Shelia Dietrich DO Primary Care Provider [phone] Allergies Active Allergy Reactions Criticality Noted Date [...] Due Date Last Done Comments Pneumococcal Vaccine: 50+ Ye ars (1 of 2 - PCV) 09/10/1979 Colorectal Cancer Screening: Annual FOBT 2009 Colorectal Cancer Screening: Colonoscopy 2009 Colorectal Cancer Screening: Sigmoidoscopy 2009 Influenza Vaccine (#1) 2025 05/08/2024 Hepatitis B Vaccine Aged Out No longe r eligible based on patient's age to complete this topic Insurance Medicaid [place] Care Teams Second Hand Paper Machine Relationship Specialty Start Date End Date Shelia Dietrich DO Clayton Marquez [address] [place] [id number] PCP - General Family Medicine 06/19/23
--- OUTSIDE RECORDS SUMMARY | 2024-12-28 09:44 | XMS_ITS | Clinical Summary ---
Author Organization [facility] Address [address] [facility] [place] [address] Care Team Providers Care Crusher Screen Repairer Name Role Phone [facility] Primary Care Provider Allergies Active Allergy Reactions [...] 2 times daily 10 tablet 07/31/2023 Active Encounters Date Type Department Care Team Description 10/22/2024 1:38 PM CDT - 10/22/2024 7:57 PM CDT Emergency [facility] Emergency Dept [address] [place] [id number] Laila Vizcarra MD Mechanical breakdown of vascular dialysis catheter, initial encounter; Hyperkalemia; Difficulty controlling anger Discharge Disposition: Home or Self Care from Last 3 Months Social History Tobacco [...] on file Legal 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 Gender Identity Not on file Sexual Orientation Not on file Last Filed Vital Signs Vital Sign Reading Time Taken Comments Blood Pressure 122/94 10/22/2024 4:41 PM CDT Pulse 89 10/22/2024 4:41 PM CDT Temperature 36.9 C (98.4 F) 10/22/2024 7:40 PM CDT Respiratory Rate 20 10/22/2024 7:40 PM CDT Oxygen Saturation 95% 10/22/2024 4:41 PM CDT Inhaled Oxygen Concentration - - Weight 54.5 kg (120 lb 3.2 oz) 07/31/2023 12:05 PM JET WIPER Height 172.7 cm (5' 7.99) 07/31/2023 12:[address] Body Mass Index 18.28 07/31/2023 12:05 PM JET WIPER Plan of Treatment Health Maintenance Due Date Last Done Comments ADVANCE CARE PLANNING 1960 ANNUAL REVIEW OF HM ORDERS 1960 CT COLONOGRAPHY 1960 FIT 1960 FLEX SIG 1960 LIPID 1960 NICOTINE/TOBACCO CESSATION COUNSELING Q 1 YR 1960 sDNA (Cologuard) 1960 YEARLY PREVENTIVE VISIT 09/10/1963 HEPATITIS B VACCINE (1 of 3 - Risk Dialysis 4-dose series) 1980 DTAP/TDAP/TD VACCINE (2 - Td or Tdap) 10/09/2022 10/09/2012, 01/16/2003 PHQ-2 (once per calendar year) 2024 INFLUENZA VACCINE (#1) 2025 , 02/20/2022, 04/04/2021, Additional history exists LUNG CANCER SCREENING 09/05/2025 09/05/2024 , 08/17/2024, 07/09/2024, Additional history exists DIABETES SCREENING 10/23/2027 10/22/2024 COLONOSCOPY 09/28/2030 09/28/2020 COLORECTAL CANCER SCREENING 09/28/2030 RSV VACCINE (1 - 1-dose 75+ series) 09/10/2035 ZOSTER VACCINE Completed 05/31/2020, 02/05/2019 HIV SCREENING Completed 03/14/2023, 06/19/2022 HEPATITIS C SCREENING Completed 04/28/2024 , 03/14/2023, 09/23/2018 COVID-19 VACCINE Completed 05/08/2024, , 04/04/2021, Additional history exists PNEUMOCOCCAL VACCINE 50+ YEARS Completed 07/21/2024, 05/17/2021, 05/31/2020, Additional history exists HPV VACCINE (No Doses Required) Completed MENINGITIS VACCINE Aged Out No longer eligible based on patient's age to complete this topic Medical Devices Implanted Type Area Learning Coordinator Device Identifier Shelf Expiration Date Model / Serial / Lot Cath In Precision Chronic Palindrome [id number]/ 30/2025 Implanted:Qty: 1 on 10/22/2024 by Govind Manjarrez MD Catheter Right: Chest Wall [employer] 03/30/2029 [id number] / / [id number] Procedures Procedure Name Priority Date/Time Associated Diagnosis Comments EKG 12-LEAD, TRACING ONLY STAT 10/22/2024 6:43 PM CDT EXTRA PURPLE TOP TUBE STAT 10/22/2024 5:36 PM CDT EXTRA TUBE STAT 10/22/2024 5:36 PM CDT INR STAT 10/22/2024 5:36 PM CDT BASIC METABOLIC PANEL STAT 10/22/2024 5:36 PM CDT IR CVC TUNNEL REVISION RIGHT STAT 10/22/2024 4:24 PM CDT from Last 3 Months Results * EKG 12-lead, tracing only (10/22/2024 6:43 PM CDT) Systolic Blood Pressure mmHg RADIOLOGY RESULTS Diastolic Blood Pressure mmHg RADIOLOGY RESULTS Ventricular Rate 95 BPM RAD IOLOGY RESULTS Atrial Rate 95 BPM RADIOLOG Y RESULTS ND Interval 152 ms RADIOLOG Y RESULTS QRS Duration 78 ms RADIOLO GY RESULTS QT 368 ms RADIOLOGY RESULTS QTc 462 ms RADIOLOGY RESULTS P [place] 70 degrees RADIOLOGY RESULTS R AXIS 57 degrees RADIOLOGY RESULTS T [place] 79 degrees RADIOLOGY RESULTS Interpretation ECG Sinus rhythm Possible Left atrial enlargement Minimal voltage criteria for LVH, may be normal variant ( Sokolow-Pride ) Borderline ECG No previous ECGs available Confirmed by GENERATED REPORT, COMPUTER ([id number]), editor & co founder MICHAELLE QUIÑONEZ ([id number]) on 10/24/2024 10:25:05 AM RADIOLOGY RESULTS 10/22/2024 6:43 PM CDT 10/24/2024 10:25 AM CDT Laila Vizcarra MD ECG ORDERABLES Edited Resu lt - Final RADIOLOGY RESULTS * Extra Purple Top Tube (10/22/2024 5:36 PM CDT) Hold Specimen JIC 10/22/2024 6:47 PM CDT LABORATORY Blood STRUCTURE OF RIGHT UPPER LIMB / Unknown Venipuncture / Unknown 10/22/2024 5:36 PM CDT 10/22/2024 5:39 PM CDT Laila Vizcarra MD LAB - BLOOD ORDERABLES Natalee l Result LABORATORY [facility] [address] 1[address] floor, [address] [place] [address], [place] [phone] * INR (10/22/2024 5:36 PM CDT) INR 1.03 0.85 - 1.15 10/22/2024 5:50 PM CDT LABORATORY PT 13.3 11.8 - 14.8 Seconds 10/22/2024 5:50 PM CDT LABORATORY Blood BLOOD SPECIMEN / Unknown Venipuncture / Unknown 10/22/2024 5:36 PM CDT 10/22/2024 5:39 PM CDT Laila Vizcarra MD LAB - BLOOD ORDERABLES Natalee sylvain Result LABORATORY [facility] [address], [address] [place] [address], [facility] [phone] * (ABNORMAL) Basic metabolic panel (10/22/2024 5:36 PM CDT) Sodium 135 135 - 145 mmol/L 10/22/2024 5:59 PM T LABORATORY Potassium 5.6(H) 3.4 - 5.3 mmol/L 10/22/2024 5:59 PM T LABORATORY Comment:Specimen slightly he molyzed. The reported potassium value may be falsely elevated. Analysis of a non-hemolyzed specimen (i.e. re-draw) may result in a lower potassium value. Chloride 98 98 - 107 mmol/L 10/22/2024 5:59 PM T LABORATORY Carbon Dioxide (CO2) 22 22 - 29 mmol/L 10/22/2024 5:59 PM T LABORATORY Anion Gap 15 7 - 15 mmol/L 10/22/2024 5:59 PM T LABORATORY Urea Nitrogen 59.7(H) 8.0 - 23.0 mg/dL 10/22/2024 5:59 PM T LABORATORY Creatinine 6.06(H) 0.67 - 1.17 mg/dL 10/22/2024 5:59 PM T LABORATORY GFR Estimate 10(L) >60 mL/min/1.7 3m2 10/22/2024 5:59 PM T LABORATORY Comment:eGFR calculated 2020 CKD-EPI equation. Calcium 7.4(L) 8.8 - 10.4 mg/dL 10/22/2024 5:59 PM T LABORATORY Glucose 116(H) 70 - 99 mg/dL 10/22/2024 5:59 PM CDT LABORATORY Blood BLOOD SPECIMEN / Unknown Venipuncture / Unknown 10/22/2024 5:36 PM CDT 10/22/2024 5:39 PM CDT us Laila Vizcarra MD LAB - BLOOD ORDERABLES Natalee sylvain Result LABORATORY [facility] [address] 1[address] floor, [address] [place] [address], [facility] [phone] * IR CVC Tunnel Revision Right (10/22/2024 4:24 PM CDT) Anatomical Region Laterality Modality Chest Radio Fluoroscop y 10/22/2024 4:24 PM CDT Impressions 10/22/2024 7:26 PM CDT IMPRESSION: 1. Replacement of tunneled catheter through the existing tract. CPT Codes: Narrative 10/22/2024 7:26 PM CDT [facility] EXAM: TUNNELED CATHETER REPLACEMENT LOCATION: [facility] CLINICAL HISTORY: The existing tunneled central venous catheter is nonfunctional. PROCEDURES PERFORMED: 1. Removal of existing catheter over guidewires. 2. Placement of new catheter over guidewires. CONTRAST: None FLUOROSCOPIC TIME: 0.6 minutes CUMULATIVE AIR KERMA/DOSE: 1.58 mGy STERILE BARRIER TECHNIQUE: Maximal Sterile Barrier Technique Utilized: Cap AND mask AND sterile gown AND sterile gloves AND sterile full body drape AND hand hygiene AND skin preparation 2% chlorhexidine for cutaneous antisepsis (or acceptable alternative antiseptics). Sterile Ultrasound Technique Utilized ?Sterile gel AND sterile probe covers. UNIVERSAL PROTOCOL: Standard universal protocol per facility guidelines was followed. See EMR for documentation. SURGICAL PROCEDURE: Risks, benefits and alternatives were explained to the patient and written, informed consent was obtained. The patient was placed in the supine position on the angiography table. The neck and chest were prepped and draped in the usual sterile fashion and anesthetized with 1% lidocaine. The cuff of the existing catheter was dissected free from the surrounding soft tissues. Stiff Glidewires were advanced through each lumen and into the IVC. The catheter was removed using gentle traction. A new tunneled dialysis catheter was then placed over the wires, through the existing tunnel, and into the right atrium. The catheter was then secured to the skin with Prolene. Each port was dwelled with heparin (1000 u/cc). The catheter exit site was dressed in a sterile fashion. The patient tolerated the procedure well and there were no immediate complications. FINDINGS: The previously placed catheter terminates in the SVC. Images obtained following placement of the new 23 cm tip to cuff 14.5 Botswanan dialysis catheter, show that the catheter terminates in the right atrium. The catheter is functional and available for immediate use. Procedure Note Govind Manjarrez MD - 10/22/2024 [facility] EXAM: TUNNELED CATHETER REPLACEMENT LOCATION: [facility] CLINICAL HISTORY: The existing tunneled central venous catheter isnonfunctional. PROCEDURES PERFORMED: 1. Removal of existing catheter over guidewires. 2. Placement of new catheter over guidewires. CONTRAST: None FLUOROSCOPIC TIME: 0.6 minutes CUMULATIVE AIR KERMA/DOSE: 1.58 mGy STERILE BARRIER TECHNIQUE: Maximal Sterile Barrier Technique Utilized: CapAND mask AND sterile gown AND sterile gloves AND sterile full body drapeAND hand hygiene AND skin preparation 2% chlorhexidine for cutaneousantisepsis (or acceptable alternative antiseptics). Sterile Ultrasound Technique Utilized ?Sterile gel ANDsterile probe covers. UNIVERSAL PROTOCOL: Standard universal protocol per facility guidelineswas followed. See EMR for documentation. SURGICAL PROCEDURE: Risks, benefits and alternatives were explained to the patient andwritten, informed consent was obtained. The patient was placed in thesupine position on the angiography table. The neck and chest were preppedand draped in the usual sterile fashion and anesthetized with 1% lidocaine. The cuff of the existing catheter wasdissected free from the surrounding soft tissues. Stiff Glidewires wereadvanced through each lumen and into the IVC. The catheter was removedusing gentle traction. A new tunneled dialysis catheter was then placed over the wires, through the existingtunnel, and into the right atrium. The catheter was then secured to theskin with Prolene. Each port was dwelled with heparin (1000 u/cc). Thecatheter exit site was dressed in a sterile fashion. The patient tolerated the procedure well and there were no immediatecomplications. FINDINGS: The previously placed catheter terminates in the SVC. Images obtainedfollowing placement of the new 23 cm tip to cuff 14.5 Botswanan dialysiscatheter, show that the catheter terminates in the right atrium. Thecatheter is functional and available for immediate use. IMPRESSION: 1. Replacement of tunneled catheter through the existing tract. CPT Codes: Gonzalez Conteh MD [facility] IR ORDERABLES Final Result from Last 3 Months Insurance [facility] Care Teams Crusher Screen Repairer Relationship Specialty Start Date End Date [facility], [address] [address] PCP - General 07/31/23
--- OUTSIDE RECORDS SUMMARY | 2024-12-28 09:44 | XMS_ITS | Clinical Summary ---
Author Organization [facility] Address [address] [place] [address] Care Team Providers Care Integration Software Engineer Name Role Phone Unavailable Primary Care Provider Unavailabl e Source Comments Patient records contain information from all sites at [facility]. For routine questions regarding patient records, call [phone] during business hours, M-F 8:00 AM - 5:00 PM Central Time. Record requests for emergency care only can be directed to [phone] at any time.[facility] Allergies Active Allergy Reactions Criticality Noted Date Comments Ranitidine Hcl Blisters High 03/13/2023 Medications amLODIPine (NORVASC) 5 mg tablet Take 1 tablet (5 mg total) by mouth daily. 90 tablet 3 03/19/2023 3:58 PM CDT 03/19/20 23 Active sodium [...] fever). 360 tablet 09/29/2024 5:10 PM CDT 09/30/19 25 Active carvediloL (Coreg) 12.5 mg tablet Take 1 tablet (12.5 mg total) by mouth 2 (two) times a day with meals. 180 tablet 3 10/05/2024 12:18 PM CDT 10/05/19 25 Active fluticasone propion-salmete roL (Advair Diskus) 250-50 mcg/dose diskus inhaler Inhale 1 puff 2 (two) times a day. Rinse mouth with water after use to reduce aftertaste and incidence of candidiasis. Do not swallow. 60 each 11 10/05/2024 12:19 PM CDT 10/05/19 25 Active atorvastatin (Lipitor) 40 mg tablet Take 1 tablet (40 mg total) by mouth daily. 90 tablet 3 10/05/2024 12:19 PM CDT 10/05/19 026 Active bumetanide (Bumex) 2 mg tablet Take 1 tablet (2 mg total) by mouth daily. 90 tablet 3 10/05/2024 12:18 PM CDT 10/05/19 026 Active multivitamin-ir on-FA 18-400 mg-mcg tablet Take 1 tablet by mouth daily. 90 tablet 3 10/05/2024 12:18 PM CDT 10/05/19 026 Active multivitamin renal failure (Dialyvite) 100-1 mg tablet Take 1 tablet by mouth daily. 90 tablet 3 10/05/2024 12:19 PM CDT 10/05/19 0[address] Active aspirin [address] tablet Take 1 tablet (81 mg total) by mouth daily. 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 10/08/2024 Orders Only Division of Nephrology and Hypertension in [place], [place] [address] [place] [address] [address] Danae Zelaya APRN, C.N.P., M.S.N. Pneumonia (Primary Dx) 10/06/2024 Orders Only Division of Nephrology and Hypertension in [place], [place] [address] [place] [phone] Danae Zelaya APRN C.N.P., M.S.N. 10/05/2024 9:24 AM CDT - 10/05/2024 11:59 PM CDT Hospital Encounter Department of Radiology in [address] [phone] Danae Zelaya APRN C.N.P., M.S.N. Pain Chest Discharge Disposition: Home or Self Care 10/04/2024 Orders Only Division of Nephrology and Hypertension in [place], [place] [address] [place] [address] Claudio Jain Jr., D.O. 09/29/2024 Documentation Division of Nephrology and Hypertension in [place], [place] [address] [place] [address] Danae Zelaya APRN C.N.P., M.S.N. 09/29/2024 Orders Only Division of Nephrology and Hypertension in [place] [address] [place] [address] Danae Zelaya APRN C.N.P., M.S.N. Pain Chest (Primary Dx) from Last 3 Months Social History Tobacco Use Types Packs/Day Years Used Date Smoking Tobacco: Some Days Cigarettes Tobacco Cessation:Ready to Q uit: Not Asked Alcohol Use Standard Drinks/Week Comments Yes 0 (1 standard drink = 0.6 oz pur e alcohol) Sex and Gender Information Value Date Recorded [...] 06/13/2023 03/13/2023 Depression Screening (Annual PHQ-2) 05/26/2024 Influenza Vaccine (#1) 2025 , 02/20/2022, 04/04/2021, Additional history exists Creatinine Level (Kidney Function Test) 10/22/2025 10/22/2024, 08/23/2024, 08/22/2024, Additional history exists Potassium Level 10/22/2025 10/22/2024, 2 09/2024, 08/23/2024, Additional history exists Sodium Level 10/22/2025 10/22/2024, 2 11/2024, 08/19/2024, Additional history exists Fasting Glucose for Diabetes Screening 10/23/2027 10/22/2024, 08/19/2024, 08/19/2024, Additional history exists Lipid (Cholesterol) Screening 03/15/2028 [...] outpatients) 10/05/2024 10:23 AM CDT Pain Chest POTASSIUM, S/P Routine 09/17/2024 10:38 AM CDT [...] cystic pancreatic lesions, largest which included the gulqi-kq-inms on today's study appears enlarged from a [...] size, and is incompletely included within the ixrlj-ri-najy. Cholecystectomy. Diffuse changes of spondylosis. No suspicious [...] size, and is incompletely included within the hbmru-pl-autw.Cholecystectomy. Diffuse changes of spondylosis. No suspicious appearing [...] multiple cystic pancreaticlesions, largest which included the dafcq-cs-xbwe on today's study appearsenlarged from a prior study of 03/13/2023. us Danae Zelaya APRN, C.N.P., M.S.N. IMG CT PROCEDURE S Final Result * (ABNORMAL) Lipid Panel (03/15/2023 5:56 AM [...] CDT 03/15/2023 7:12 AM CDT Clai B Catto P.A.-C. LAB BLOOD ADD-ON Final Resu lt Performing Organization Address [facility] Co de Phone Number [facility] [address] [place] [address], [facility] [address] [place] [address] * HIV-1/-2 Ag and Ab Screen, Plasma (03/14/2023 6:31 PM CDT) Pathologist [facility] HIV-1/-2 Ag and Ab Screen, P Negative Negative 03/14/2023 9:01 PM CDT [facility] Comment: Negative result does not rule out HIV infection. If exposure to HIV infection occurred <14 days ago, contact the laboratory to request addition of HIV-1/HIV-2 RNA detection, Plasma (HIP12). Blood (Blood, Venous) 03/14/2023 6:31 PM CDT 03/14/2023 8:20 PM CDT Clai B Catto P.A.-C. LAB MICROBIOLOGY - BLOOD OR DERABLES Final Result Performing Organization Address [facility]/ZIP Co de Phone Number [facility] [address] [place] [address] [facility] [address] [place] [address] * (ABNORMAL) HCV Ab Scrn w/Reflex to HCV PCR, Serum (03/14/2023 6:31 PM CDT) Pathologist [facility] HCV Ab Screen, S Reactive(A ) Negative 03/14/2023 11:27 PM CDT [facility] Comment: Supplemental testing for HCV RNA is ordered to rule out active HCV infection. Aadfnf-ra-mfkyww ratio is >=1.00 and <8.00. Blood (Blood, Venous) 03/14/2023 6:31 PM CDT 03/14/2023 8:21 PM CDT us Sonido Wooten P.A.-C. LAB MICROBIOLOGY - BLOOD OR DERABLES Final Result Performing Organization Address City/[facility]/ZIP Co de Phone Number [facility] [address] [place] [address] [facility] [address] [place] [address] * Hepatitis B Surface Antigen (03/14/2023 6:31 PM CDT) [facility] HBs Antigen, S Negative Negative 03/14/2023 11:09 PM CDT [facility] Blood (Blood, Venous) 03/14/2023 6:31 PM CDT 03/14/2023 8:21 PM CDT Sonido Wooten P.A.-C. LAB MICROBIOLOGY - BLOOD OR DERABLES Final Result Performing Organization Address City/[facility] Co de Phone Number [facility] [address] [place] [address] [facility] [address] [place] [address] from Last 3 Months or Most Recently Relevant to Health Maintenance Insurance [facility] Advance Directives For more information, please contact: [phone] * Full Code (Latest Code Status on File) Date Activated Date Inactivated Comments 03/13/2023 4:37 AM 03/19/2023 5:51 PM Question Answer Comments Full Code: Not Discussed Due to: Patient not available
--- OUTSIDE RECORDS SUMMARY | 2024-12-28 09:45 | XMS_ITS | Encounter Summary ---
Author Organization [facility] Address [address] [facility] [address] [place] [address] Care Team Providers Care Building Materials Sales Attendant Name Role Phone Shelia Dietrich DO Primary Care Provider [phone] Encounter Details Date Type Department Care Team (Late st Contact Info) Description 10/10/2023 Orders Only [facility] [address] [place] [address] Good Briceno MD [address] [place] [place] [address] Stage 5 chronic kidney disease (HCC) Social History Tobacco Use Types Packs/Day Years Used Date Smoking Tobacco: Every Day Cigarettes Started: 1968 Smokeless Tobacco: Never Alcohol Use Standard Drinks/Week Comments Not Currently 0 (1 standard drink = 0.6 oz pure alcohol) alcohol use disorder noted in [facility] Sex and Gender Information Value Date [...] mg/dL [facility] Glucose 99 mg/dL [facility] eGFR (Calc) 18(L) [facility] Anion Gap 17 [facility] Blood specimen (specimen) Venous blood / Unknown 10/21/2023 us Good Briceno MD LAB BLOOD ORDERABLES Final Re sult [facility] documented in this encounter Visit Diagnoses Diagnosis Stage 5 chronic kidney disease (HCC) documented in this encounter Care Teams Building Materials Sales Attendant Relationship Specialty Start Date End Date Shelia Dietrich DO Clayton Marquez [address] [place] [address] PCP - General Family Medicine 06/19/23 documented as of this encounter
--- OUTSIDE RECORDS SUMMARY | 2024-12-28 09:45 | XMS_ITS | Encounter Summary ---
Author Organization [facility] Address [address] [place] [address] Care Team Providers Care Web Applications Programmer Name Role Phone Shelia Dietrich DO Primary Care Provider [phone] Encounter Details Date Type Department Care Team (Late st Contact Info) Description 12/18/2023 Orders Only [facility] [address] [place] [address] Good Briceno MD [address] [place] [address] Stage 5 chronic kidney disease (HCC) Social History Tobacco Use Types Packs/Day Years Used Date Smoking Tobacco: Every Day Cigarettes Started: 1968 Smokeless Tobacco: Never Alcohol Use Standard Drinks/Week Comments Not Currently 0 (1 standard drink = 0.6 oz pure alcohol) alcohol use disorder noted in [facility] Sex and Gender Information Value Date Recorded Sex Assigned at Not on file Legal Sex Male 11:26 AM EST Gender Identity Not on file Sexual Orientation Not on file documented as of this encounter Plan of Treatment Not on file documented as of this encounter Visit Diagnoses Diagnosis Stage 5 chronic kidney disease (HCC) documented in this encounter Care Teams Web Applications Programmer Relationship Specialty Start Date End Date Shelia Dietrich DO [place] [address] [place] [address] PCP - General Family Medicine 06/19/23 documented as of this encounter
--- OUTSIDE RECORDS SUMMARY | 2024-12-28 09:45 | XMS_ITS | Clinical Summary ---
Author Organization [employer] [facility] Address [facility] [place] [address] Care Team Providers Care Loan Broker Name Role Phone Pcp, No Unavailable Unavailable Shelia Dietrich DO Primary Care Provider [phone] Merari Jenkins RN Unavailable Allergies Active Allergy [...] at bedtime. 30 Tablet 05/25/2024 4:01 PM AUDIT CLERK 4 Active multivitamin with folic acid 0.4 [...] Acute respiratory failure with hypoxia 05/19/2023 07/28/2023 Immunizations Immunization Administration Dates Next Due COVID-19 VACCINE SPIKEVAX (M ODERNA 50MCG/0.5ML) 12YO+ PFS 05/08/2024 COVID-19 vaccine ([facility] NTech 30mcg/0.3mL) 12YO+ BIVALENT PF, MDV 02/20/2022 COVID-19 vaccine (Nextt-Bio NTech 30mcg/0.3mL) PF, MDV 04/04/2021,09/11/2020,08/21/2020 Hepatitis A [...] on file Legal Sex Male 4:18 PM AUDIT CLERK Gender Identity Not on file Sexual Orientation [...] 174 cm (5' 8.5) 05/17/2024 3:00 PM AUDIT CLERK Body Mass Index 17.14 05/17/2024 3:00 PM AUDIT CLERK Plan of Treatment Health Maintenance Due Date [...] same day) for age 18+ 07/27/2024 07/28/2023 Influenza Vaccine (#1) 2025 , 02/20/2022, 04/04/2021, Additional history exists Zoster (shingles) series for age 50+ Completed 05/31/2020, 02/05/2019 Hepatitis C screening for age 18-79 Completed 04/28/2024 COVID-19 vaccine series Completed 05/08/20, 02/20/2022, 04/04/2021, Additional history exists Hepatitis B series for 19+ Aged Out N o longer eligible based on patient's age to complete this topic Procedures Procedure Name Priority Date/Time Associated Diagnosis Comments ANTI HCV Early AM 04/28/2024 5:01 AM AUDIT CLERK from Last 3 Months or Most Recently Relevant to Health Maintenance Results * (ABNORMAL) ANTI HCV (04/28/2024 5:01 AM AUDIT CLERK) HEPATITIS C ANTIBODY Reactive, Preliminary Positive(A) Non-React odette 04/28/2024 9:46 AM AUDIT CLERK [facility] Comment:Presumptive evidence of antibodies to HCV. Reflexed to HCV RNA Quant (See separate report). Blood BLOOD SPECIMEN / Unknown Venipuncture / Unknown 04/28/2024 5:01 AM AUDIT CLERK 04/28/2024 5:17 AM AUDIT CLERK Zaheer Valerio MD SEND OUTS Final Result [facility] [address] [place] [address], from Last 3 Months or Most Recently Relevant to Health Maintenance Insurance [facility] Advance Directives * Full Code (Latest Code [...] Code Status Discussion: Reviewed Preferences Care Teams Loan Broker Relationship Specialty Start Date End Date Shelia Dietrich [place] [address] [place] [address] PCP - General Family Practice 06/18/23 Pcp, No . 05/18/23 Merari Jenkins, RN [address] [place] [id number] Nurse Navigator - Oncology Registered Nurse 08/27/24
--- OUTSIDE RECORDS SUMMARY | 2024-12-28 09:45 | XMS_ITS | Encounter Summary ---
Author Organization [facility] Address [address] [place] [address] Care Team Providers Care Luggage Attendant Name Role Phone Shelia Dietrich DO Primary Care Provider [phone] Encounter Details Date Type Department Care Team (Late st Contact Info) Description 11/07/2023 Orders Only [facility] [address] [place] [address] Good Briceno MD [address] [place] [id number] Stage 5 chronic kidney disease (HCC) Social History Tobacco Use Types Packs/Day Years Used Date Smoking Tobacco: Every Day Cigarettes Started: 1968 Smokeless Tobacco: Never Alcohol Use Standard Drinks/Week Comments Not Currently 0 (1 standard drink = 0.6 oz pure alcohol) alcohol use disorder noted in [facility] Sex and Gender Information Value Date Recorded Sex Assigned at Not on file Legal Sex Male 11:26 AM EST Gender Identity Not on file Sexual Orientation Not on file documented as of this encounter Plan of Treatment Not on file documented as of this encounter Visit Diagnoses Diagnosis Stage 5 chronic kidney disease (HCC) documented in this encounter Care Teams Luggage Attendant Relationship Specialty Start Date End Date Shelia Dietrich DO [address] [place] [address] PCP - General Family Medicine 06/19/23 documented as of this encounter
--- NOTE | 2024-12-28 10:10 | CRLHL7_ITS ---
For Patients: As a result of the Century Cures Act, medical imaging exams and procedure reports are released immediately into your electronic medical record. You may view this report before your referring provider. If you have questions, please contact your health care provider. INDICATION: Chest pain. TECHNIQUE: Chest 1 view COMPARISON: 10/20/2024 FINDINGS: Cardiovasculature and mediastinum: Heart size is normal. Unremarkable mediastinum. Right central venous catheter with tip projecting over the right atrium. Lungs and pleural spaces: Improved opacity projecting over the right lower lobe, possibly atelectasis. No definite pleural effusion. No pneumothorax. Bones and soft tissues: No significant findings. IMPRESSION: Patient rotation slightly limits evaluation. Improved opacity projecting over the right lower lobe, possibly atelectasis. Dictated by Wendy Noyola MD @ 12/28/2024 12:04:42 PM (Electronically Signed)
--- NOTE | 2024-12-28 10:23 | ED.CHESTPAIN ---
HPI - Chest Pain General Date Seen: 12/28/24 Chief Complaint: Chest Pain Stated Complaint: chest pain Time Seen by Provider: 12/28/24 09:44 Source: patient and EMS Mode of arrival: EMS Limitations: no limitations History of Present Illness HPI narrative: Patient is a 64-year-old male with a history of heart failure, COPD, pulmonary hypertension chronically elevated D-dimer presenting to the emergency department for chest pain. He states about 2 or 3 days ago he started developing chest pain. It is in the left side of his chest radiating to the midsternal region. Denies having chest pain like this before. States chest pain is improved when he sits down and is at rest but gets worse when he even takes a few steps. Will feel short of breath at the same time. Does not have any history of blood clots or current lower extremity swelling. States he has had 2 previous cardiac arrest. Is unaware if he has any other chronic heart disease. This possible dialysis [id number] but states he for sure missed his last 2 appointments is unsure if he went last Friday. States he is unable to get a ride to get to his appointments. Denies any fevers or chills. Denies abdominal pain, headache, vision changes, weakness, numbness, diarrhea, constipation. Was given nitro via EMS which did not change his symptoms at all. Was also given 4 baby aspirin via EMS. Does admit to being diagnosed with lung cancer last month but has not done any follow-up. Related Data Home Medications ?Medication ?Instructions ?Recorded ?Confirmed carvedilol 12.5 mg tablet 6.25 mg PO BID 05/18/23 10/20/24 aspirin 81 mg chewable tablet 1 tab PO DAILY 05/17/24 10/20/24 atorvastatin 40 mg tablet 40 mg PO QPM 05/17/24 10/20/24 bumetanide 2 mg tablet 2 mg PO DAILY 05/17/24 10/20/24 multivitamin with folic acid 400 1 tab PO DAILY 05/17/24 10/20/24 mcg tablet (Daily-Ernestina (with folic acid)) Allergies Allergy/AdvReac Type Severity Reaction Status Date / Time ranitidine AdvReac itch Verified 10/20/24 16:53 Review of Systems Status of ROS Reports: 10 or more systems reviewed and unremarkable except as noted in History and below [facility] Medical History Altered mental status ?R41.82 - Altered mental status, unspecified (ICD-10) Non-STEMI (non-ST elevated myocardial infarction) ?I21.4 - Non-ST elevation (NSTEMI) myocardial infarction (ICD-10) Smoking ?F17.200 - Nicotine dependence, unspecified, uncomplicated (ICD-10) Alcohol use disorder ?F10.90 - Alcohol use, unspecified, uncomplicated (ICD-10) COPD (chronic obstructive pulmonary disease) ?J44.9 - Chronic obstructive pulmonary disease, unspecified (ICD-10) Coronary artery disease ?I25.10 - Atherosclerotic heart disease of [place] coronary artery without angina pectoris (ICD-10) Stage 4 chronic kidney disease ?N18.4 - Chronic kidney disease, stage 4 (severe) (ICD-10) Pulmonary hypertension ?I27.20 - Pulmonary hypertension, unspecified (ICD-10) Right heart failure ?I50.810 - Right heart failure, unspecified (ICD-10) Heart failure with reduced ejection fraction ?I50.20 - Unspecified systolic (congestive) heart failure (ICD-10) Social History Narrative: Patient apparently lives in an apartment in [place]. Smokes a pack of cigarettes a day. He has a history of alcohol abuse but current consumption is unknown. Unable to discuss plan of care or goals of care What is your current living situation?: unable to answer Problems where you live: unable to answer Problems where you live details: unknown In the past 12 months, utilities in danger of being shut off: unable to answer In past 12 months, lack of transportation kept you from medical appts, meetings, work, or getting things needed for daily living: unable to answer In the past 12 mos, have been you worried that your food would run out before you had money to buy more?: unable to answer In the past 12 mos, the food you bought just didn't last and you didn't have money to buy more?: unable to answer Highest level of school completed/degree received: don't know Smoking Status: Current every day smoker Do you use any of these nicotine containing products: None Second hand tobacco smoke exposure: Yes How often do you have a drink containing alcohol: 4 or more times a week How many standard drinks containing alcohol do you have on a typical day: 10 or more AUDIT-C Alcohol total score: 8 Non-prescribed substance use: marijuana (any form) Non-prescribed substance use details: unknown How often does anyone, including family, friends and others, physically hurt you: unable to answer How often does anyone, including family, friends and others, insult or talk down to you: unable to answer How often does anyone, including family, friends and others, threaten you with harm: unable to answer How often does anyone, including family, friends and others, scream or curse at you: unable to answer service: No Exam Narrative Exam Narrative: Const: Well-nourished, Well-developed, in mild distress Eyes: PERRL, no conjunctival injection, and symmetrical lids HENT: Atraumatic external nose and ears. Moist mucous membranes. Neck: Symmetric, trachea midline, No thyromegaly. CVS: RRR, No murmurs or gallops. Peripheral pulses 2+ and equal in all extremities RESP: Unlabored respiratory effort. Clear to auscultation bilaterally. GI: Nontender/Nondistended, No rebound or guarding. MSK:Extremities w/o deformity, Normal Active ROM Skin: Warm, Dry. No rashes or lesions. Neuro: Normal Muscle tone, No focal neurological deficits. Psych: Awake, Alert, & Oriented x3. Appropriate mood and affect. Const Vital Signs, click to edit/add: Vital Signs - 24 hr 12/28/24 09:54 12/28/24 09:59 12/28/24 10:00 Temperature 96.5 F L Pulse Rate 114 H 113 H Pulse Rate [Pulse Oximeter] 117 H Respiratory Rate 18 20 20 Blood Pressure Blood Pressure [Right Upper Arm] 111/85 Pulse Oximetry 98 97 97 Oxygen Delivery Method Room Air 12/28/24 10:01 12/28/24 10:15 12/28/24 10:30 Temperature Pulse Rate 116 H 113 H 111 H Pulse Rate [Pulse Oximeter] Respiratory Rate 14 19 16 Blood Pressure 103/78 Blood Pressure [Right Upper Arm] Pulse Oximetry 97 97 97 Oxygen Delivery Method 12/28/24 10:35 12/28/24 10:45 12/28/24 11:00 Temperature Pulse Rate 114 H 108 H 111 H Pulse Rate [Pulse Oximeter] Respiratory Rate 21 18 Blood Pressure Blood Pressure [Right Upper Arm] Pulse Oximetry 97 97 98 Oxygen Delivery Method 12/28/24 11:04 12/28/24 11:05 12/28/24 11:15 Temperature Pulse Rate 110 H 109 H 106 H Pulse Rate [Pulse Oximeter] Respiratory Rate 18 Blood Pressure Blood Pressure [Right Upper Arm] Pulse Oximetry 98 97 97 Oxygen Delivery Method 12/28/24 11:30 12/28/24 11:31 12/28/24 11:45 Temperature Pulse Rate 107 H 105 H 104 H Pulse Rate [Pulse Oximeter] Respiratory Rate 11 L 10 L 17 Blood Pressure 106/81 Blood Pressure [Right Upper Arm] Pulse Oximetry 97 96 97 Oxygen Delivery Method 12/28/24 12:26 12/28/24 12:31 12/28/24 13:01 Temperature Pulse Rate Pulse Rate [Pulse Oximeter] Respiratory Rate 19 16 19 Blood Pressure 124/92 H 125/89 106/73 Blood Pressure [Right Upper Arm] Pulse Oximetry Oxygen Delivery Method 12/28/24 13:16 Temperature Pulse Rate Pulse Rate [Pulse Oximeter] 112 H Respiratory Rate Blood Pressure Blood Pressure [Right Upper Arm] Pulse Oximetry 96 Oxygen Delivery Method Room Air Course Vital Signs Vital signs: Initial Vital Signs Respiratory Effort Normal 12/28/24 09:53 Respiratory Depth Normal 12/28/24 09:53 Respiratory Pattern Normal 12/28/24 09:53 Vital Signs Temperature 96.5 F L 12/28/24 09:54 Pulse Rate 117 H 12/28/24 09:54 Respiratory Rate 18 12/28/24 09:54 Blood Pressure 111/85 12/28/24 09:54 Pulse Oximetry 98 12/28/24 09:54 Oxygen Delivery Method Room Air 12/28/24 09:54 Temperature 96.5 F L 12/28/24 09:54 Pulse Rate 112 H 12/28/24 13:16 Respiratory Rate 19 12/28/24 13:01 Blood Pressure 106/73 12/28/24 13:01 Pulse Oximetry 96 12/28/24 13:16 Oxygen Delivery Method Room Air 12/28/24 13:16 Medications Administered Medications: Discontinued Medications Generic Name Dose Route Start Last Admin Trade Name Freq PRN Reason Stop Dose Admin Morphine Sulfate 2 mg 12/28/24 12:00 12/28/24 12:04 Morphine 2 Mg/Ml Inj IVP 12/28/24 12:01 2 mg ONCE ONE Administration MDM - Chest Pain MDM Narrative Medical decision making narrative: Patient is a 64-year-old male presenting to emergency department for chest pain. The differential diagnosis of chest pain is broad and includes common etiologies such as musculoskeletal strain, GERD, pneumonia, etc. More serious etiologies considered include PE, coronary artery disease, pneumothorax, aortic dissection, aortic aneurysm. I do concerned about PE with his history of cancer in his symptoms but concerning he still produces urine and is on dialysis I do not want to do a CTA unless I can confirm he is getting dialysis soon. His D-dimers always quite elevated. Will do EKG and troponin to look for signs of cardiac abnormalities. Is I do not think he is having aortic dissection or aortic aneurysm at this time. Will do chest x-ray to look for pneumonia or pneumothorax. Will also order CBC he does, BMP, viral swabs, magnesium, BNP. Lab work shows a hemoglobin of 6.9. His baseline is typically much higher and his most recent hemoglobin here was 13.6 did do a rectal exam look for signs of a GI bleed and fecal occult was negative. Of note his teens had quite a bit of stool in them and I do not believe he is adequately caring for himself at home. BMP returned with a carbon dioxide below 5 with an anion gap. His BUN is 151 his creatinine is 13.9. This is not totally unexpected considering he is not going to dialysis but I do believe a VBG is necessary. This was done showing an acidosis. Appears to be a metabolic acidosis likely from uremia. I do believe he needs urgent dialysis. Viral swabs are negative. Type and screen was ordered. Initial troponin was 2.61. His troponin seem to vary greatly and his highest he was here was 1.1. EKG was not concerning. It is hard to say if this is acute cardiac issues or related to him missing dialysis. He is states he has no chest pain at rest his EKG is reassuring. Will reorder a delta troponin. Patient any transfer and I spoke to [facility]. There hospitalist does believe the patient should be in the ICU. I spoke to Dr. Aguilar and he accepts the patient for admission to their ICU. Patient is agreeable to this plan. He does have the elevated troponin but I will hold off on heparin at this time as I cannot say for certain what is causing his low hemoglobin and again I do not believe this is an acute STEMI. Heart rate was improving from 117 to 104 and has not required any oxygen in the emergency department. His delta trop is unchanged Lab Data Labs: Lab Results 12/28/24 12/28/24 12/28/24 Range/Units 10:22 10:32 10:38 WBC 7.85 (4.50-11.00) K/uL RBC 2.14 L (4.30-5.90) m/uL Hgb 6.9 L* (13.5-17.5) gm/dL Hct 20.9 L (37.0-53.0) % MCV 98 (80-100) fL MCH 32 (26-34) pg MCHC 33 (32-36) gm/dL RDW Coeff of Martir 15.3 (11.5-15.5) % Plt Count 293 (140-440) K/uL Neut % (Auto) 68.1 (42.0-72.0) % Lymph % (Auto) 14.9 L (20-44) % [place]bon % (Auto) 10.4 (0.0-11.0) % Eos % (Auto) 4.2 (0.0-7.0) % Baso % (Auto) 0.6 (0.0-3.0) % Neut # (Auto) 5.34 (1.7-7.0) K/uL Lymph # (Auto) 1.20 (0.90-2.90) K/uL Bourbon # (Auto) 0.80 (0.00-0.90) K/UL Eos # (Auto) 0.33 (0.00-0.50) K/uL Baso # (Auto) 0.05 (0.00-0.30) K/uL Abs Immat Gran (auto) 0.14 (0.00-0.30) K/uL Imm/Tot Granulo (auto) 1.8 % VBG pH (7.32-7.43) VBG pCO2 (40-50) mmHG VBG pO2 (25-47) mmHG VBG HCO3 (21-28) mmol/L Sodium 133 L (135-149) mmol/L Potassium 4.6 (3.6-5.1) mmol/L Chloride 105 (96-114) mmol/L Carbon Dioxide < 5 L* (20-32) mmol/L Anion Gap 23 H (7-15) mEq/L BUN 151 H (7-30) mg/dL Creatinine 13.9 H (0.5-1.5) mg/dL Estimated Creat Clear 4.00 Estimated GFR 4 ml/min Glucose 90 (60-115) mg/dL Lactate (0.5-1.9) mmol/L Calcium 7.6 L (8.4-10.6) mg/dL Magnesium 1.8 (1.5-2.6) mg/dL Troponin I 2.61 H* (0.01-0.04) ng/mL NT-Pro-B Natriuret Pep 37135 H (See Note) pg/mL Stool Occult Blood (Negative) SARS-CoV-2 (PCR) Negative SARS-CoV-2 (Negative) Influenza Type A (PCR) Negative PCR FLU A (Negative) Influenza Type B (PCR) Negative PCR FLU B (Negative) RSV (PCR) Negative PCR RSV (Negative) Lab Acknowledgement Blood Type A Negative Antibody Screen NEGATIVE 12/28/24 12/28/24 12/28/24 Range/Units 11:56 12:06 12:08 WBC (4.50-11.00) K/uL RBC (4.30-5.90) m/uL Hgb (13.5-17.5) gm/dL Hct (37.0-53.0) % MCV (80-100) fL MCH (26-34) pg MCHC (32-36) gm/dL RDW Coeff of Martir (11.5-15.5) % Plt Count (140-440) K/uL Neut % (Auto) (42.0-72.0) % Lymph % (Auto) (20-44) % [place] % (Auto) (0.0-11.0) % Eos % (Auto) (0.0-7.0) % Baso % (Auto) (0.0-3.0) % Neut # (Auto) (1.7-7.0) K/uL Lymph # (Auto) (0.90-2.90) K/uL [place] # (Auto) (0.00-0.90) K/UL Eos # (Auto) (0.00-0.50) K/uL Baso # (Auto) (0.00-0.30) K/uL Abs Immat Gran (auto) (0.00-0.30) K/uL Imm/Tot Granulo (auto) % VBG pH 7.194 L* (7.32-7.43) VBG pCO2 20 L (40-50) mmHG VBG pO2 115.0 H (25-47) mmHG VBG HCO3 8 L (21-28) mmol/L Sodium (135-149) mmol/L Potassium (3.6-5.1) mmol/L Chloride (96-114) mmol/L Carbon Dioxide (20-32) mmol/L Anion Gap (7-15) mEq/L BUN (7-30) mg/dL Creatinine (0.5-1.5) mg/dL Estimated Creat Clear Estimated GFR ml/min Glucose (60-115) mg/dL Lactate 0.6 (0.5-1.9) mmol/L Calcium (8.4-10.6) mg/dL Magnesium (1.5-2.6) mg/dL Troponin I (0.01-0.04) ng/mL NT-Pro-B Natriuret Pep (See Note) pg/mL Stool Occult Blood (Negative) SARS-CoV-2 (PCR) (Negative) Influenza Type A (PCR) (Negative) Influenza Type B (PCR) (Negative) RSV (PCR) (Negative) Lab Acknowledgement New Spec Needed A Blood Type Antibody Screen 12/28/24 12/28/24 Range/Units 12:20 13:21 WBC (4.50-11.00) K/uL RBC (4.30-5.90) m/uL Hgb (13.5-17.5) gm/dL Hct (37.0-53.0) % MCV (80-100) fL MCH (26-34) pg MCHC (32-36) gm/dL RDW Coeff of Martir (11.5-15.5) % Plt Count (140-440) K/uL Neut % (Auto) (42.0-72.0) % Lymph % (Auto) (20-44) % [place] % (Auto) (0.0-11.0) % Eos % (Auto) (0.0-7.0) % Baso % (Auto) (0.0-3.0) % Neut # (Auto) (1.7-7.0) K/uL Lymph # (Auto) (0.90-2.90) K/uL [place] # (Auto) (0.00-0.90) K/UL Eos # (Auto) (0.00-0.50) K/uL Baso # (Auto) (0.00-0.30) K/uL Abs Immat Gran (auto) (0.00-0.30) K/uL Imm/Tot Granulo (auto) % VBG pH (7.32-7.43) VBG pCO2 (40-50) mmHG VBG pO2 (25-47) mmHG VBG HCO3 (21-28) mmol/L Sodium (135-149) mmol/L Potassium (3.6-5.1) mmol/L Chloride (96-114) mmol/L Carbon Dioxide (20-32) mmol/L Anion Gap (7-15) mEq/L BUN (7-30) mg/dL Creatinine (0.5-1.5) mg/dL Estimated Creat Clear Estimated GFR ml/min Glucose (60-115) mg/dL Lactate (0.5-1.9) mmol/L Calcium (8.4-10.6) mg/dL Magnesium (1.5-2.6) mg/dL Troponin I 2.58 H* (0.01-0.04) ng/mL NT-Pro-B Natriuret Pep (See Note) pg/mL Stool Occult Blood Negative (Negative) SARS-CoV-2 (PCR) (Negative) Influenza Type A (PCR) (Negative) Influenza Type B (PCR) (Negative) RSV (PCR) (Negative) Lab Acknowledgement Blood Type Antibody Screen Imaging Data Chest x-ray: Attestation: I have reviewed the pertinent imaging results. Radiologist's impression: Patient rotation slightly limits evaluation. Improved opacity projecting over the right lower lobe, possibly atelectasis. Dictated by Wendy Noyola MD @ 12/28/2024 12:04:42 PM ECG Data Attestation: I personally reviewed and interpreted this ECG as follows: Prior ECG tracings: available for review Interpretation: Sinus tachycardia with a rate of 119 beats per minute, normal intervals, normal axis, no ST or T-wave abnormalities Critical Care Time Critical Care Time Critical Care Time: Yes Attestation: The patient required my highest level preparedness to intervene emergently and I personally spent this critical care time directly and personally managing the patient. This critical care time included: Obtaining a history; Examining the patient; Pulse oximetry; Ordering and reviewing of studies; Arranging urgent treatment with development of a management plan; Evaluation of patients response to treatment; Frequent reassessment discussions with other providers. This critical care time was performed to assess and manage the high probability of imminent life-threatening deterioration that could result in multiorgan failure. It was exclusive of separate billable procedures and treating other patients and teaching time. Total Critical Care Time in Minutes: 56 Discharge Plan Discharge Clinical Impression: Metabolic acidosis, Acute uremia, Acute non-ST elevation myocardial infarction (NSTEMI) Acute kidney failure Qualifiers: Acute renal failure type: unspecified Qualified Code(s): N17.9 - Acute kidney failure, unspecified Anemia Qualifiers: Anemia type: unspecified type Qualified Code(s): D64.9 - Anemia, unspecified Patient Disposition: [facility] Condition: Critical Prescriptions: No Action carvedilol 12.5 mg tablet 6.25 mg PO BID atorvastatin 40 mg tablet 40 mg PO QPM aspirin 81 mg tablet,chewable 1 tab PO DAILY multivitamin with folic acid [Daily-Ernestina (with folic acid)] 400 mcg tablet 1 tab PO DAILY bumetanide 2 mg tablet 2 mg PO DAILY Stand Alone Forms: [facility] Info Instructions Procedures ABG Interpretation ABG Results: 12/28/24 12:06 VBG pH 7.194 L* VBG pCO2 20 L VBG pO2 115.0 H VBG HCO3 8 L
[2024-12-28 11:01] LABS: PCR FLU A Negative PCR FLU A (Negative); PCR FLU B Negative PCR FLU B (Negative); PCR RSV Negative PCR RSV (Negative); SARS PCR* Negative SARS-CoV-2 (Negative)
[2024-12-28 11:12] LABS: Hematocrit 20.9 % (37.0-53.0); Immature Granulocytes Abs Auto 0.14 K/uL (0.00-0.30); Immature Granulocytes Pct Auto 1.8 %; Mean Corpuscular HGB Conc 33 gm/dL (32-36); Mean Corpuscular Hemoglobin 32 pg (26-34); Mean Corpuscular Volume 98 fL (80-100); RDW Coefficient of Variation % 15.3 % (11.5-15.5); Red Blood Count 2.14 m/uL (4.30-5.90); White Blood Count* 7.85 K/uL (4.50-11.00)
[2024-12-28 11:15] LABS: Hemoglobin* 6.9 gm/dL (13.5-17.5); Lymphocytes Absolute Auto 1.20 K/uL (0.90-2.90); Slide Review Reflex No
[2024-12-28 11:30] LABS: Chloride* 105 mmol/L (96-114); Potassium* 4.6 mmol/L (3.6-5.1); Sodium* 133 mmol/L (135-149)
[2024-12-28 11:33] LABS: Calcium* 7.6 mg/dL (8.4-10.6); Creatinine* 13.9 mg/dL (0.5-1.5); Est. Creatinine Clearance* 4.00; Estimated Glomerular Filt Rate 4 ml/min; Glucose* 90 mg/dL (60-115)
[2024-12-28 11:47] LABS: Anion Gap 23 mEq/L (7-15); Blood Urea Nitrogen* 151 mg/dL (7-30); Carbon Dioxide* < 5 mmol/L (20-32)
[2024-12-28 11:49] LABS: NT Pro B Type NatriureticPept* 34100 pg/mL (See Note)
[2024-12-28 11:57] LABS: Lab Add On Test New Spec Needed
[2024-12-28 12:10] LABS: HCO3 VBG 8 mmol/L (21-28); PCO2 VBG 20 mmHG (40-50); PO2 VBG 115.0 mmHG (25-47)
[2024-12-28 12:13] LABS: pH VBG 7.194 (7.32-7.43)
[2024-12-28 12:31] LABS: Fecal Occult Blood* Negative (Negative)
[2024-12-28 13:06] LABS: Lactate* 0.6 mmol/L (0.5-1.9)
== END 2024-12-28 15:08 | disposition short-term general hospital (02) ==
PROVIDERS: Emergency Provider Student in an Organized Health Care Education/Training Program; PCP Family Medicine
DX: I21.4 Non-ST elevation (NSTEMI) myocardial infarction (principal); N17.9 Acute kidney failure, unspecified; D64.9 Anemia, unspecified
CPT/HCPCS: 36415; 71045; 80048; 82270; 82803; 83605; 83735; 83880; 84484; 85025; 86850; 86900; 86901; 87631; 93005; 96374; 99285; 99291; J2270

== ENCOUNTER 2024-12-28 14:57 | Outpatient (CLI) | payer MEDICAID, SELFPAY | END 2024-12-28 14:58 | disposition home or self-care (01) | PROVIDERS: PCP Family Medicine; Visit Provider Student in an Organized Health Care Education/Training Program | DX: E87.20 Acidosis, unspecified (principal); N19 Unspecified kidney failure; I21.4 Non-ST elevation (NSTEMI) myocardial infarction | CPT/HCPCS: A0425; A0427 ==